=== PATIENT | male | born 1945 | race Caucasian/White ===

== ENCOUNTER 2019-10-14 20:50 | Inpatient (IN) | payer MEDICARE, OTHER ==
[2019-10-14] MEDS ORDERED: ASPIRIN 81 MG PO STA (21:10)
--- NOTE | 2019-10-14 21:12 | ED ---
General Adult HPI - General Chief complaint: Chest Pain Stated complaint: Chest Pain Time Seen by Provider: 10/14/19 21:01 Source: patient Mode of arrival: wheelchair Limitations: no limitations - History of Present Illness Initial comments: Dictation was produced using [employer] dictation software. please excuse any grammatical, word or spelling errors. This patient was cared for during a federal and state declared state of emergency secondary to Covid 19 Chief Complaint: 74-year-old male past medical history of myocardial infarction, acute coronary syndrome presents with chest pain. History of Present Illness: 34-year-old male who presents today with his son. Patient was having dinner. The were eating barbecue and mac & cheese when all of a sudden he began experiencing some substernal chest pressure. He states that the pain was severe. Seconds later patient be began developing shortness of breath. They took some nitroglycerin however his symptoms didn't really improve until several minutes later. Patient lives between here in [place]. 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 Patient is history of coronary artery disease he has 4 coronary artery stents. The ROS documented in this emergency department record has been reviewed and confirmed by me. Those systems with pertinent positive or negative responses have been documented in the HPI. All other systems are other negative and/or noncontributory. PHYSICAL EXAM: General Impression: Alert and oriented x3, not in acute distress HEENT: Normocephalic atraumatic, extra-ocular movements intact, pupils equal and reactive to light bilaterally, mucous membranes moist. Cardiovascular: Heart regular rate and rhythm Chest: Able to complete full sentences, no retractions, no tachypnea Abdomen: abdomen soft, non-tender, non-distended, no organomegaly Musculoskeletal: Pulses present and equal in all extremities, no peripheral edema Motor: no focal deficits noted Neurological: CN II-XII grossly intact, no focal motor or sensory deficits noted Skin: Intact with no visualized rashes Psych: Normal affect and mood ED course: 74-year-old male presents with chest pain. vitals upon arrival shows 90% oxygen room air, rest of vital signs within acceptable limits. Repeat EKG was obtained 20 minutes later showing no dynamic changes. Laboratory evaluation obtained. CBC unremarkable. Coag panel is negative. D- dimer is 0.29. Metabolic panel is negative per cardiac enzymes negative. Chest x-ray is nonacute. Patient given aspirin. Considering patient's medical histo ry he'll be admitted for serial troponins and cardiology consultation. Patient is agreeable to disposition. EKG interpretation: Ventricular rate 70, normal sinus rhythm,. Interval 192, QRS 12, QTC 471. No DE prolongation, no QTC prolongation, no ST or T-wave changes noted. No old EKG for comparison.. Overall, this EKG is unremarkable - Related Data Home Medications Medication Instructions Recorded Confirmed Ascorbic Acid [Vitamin C] 500 mg PO DAILY 08/22/15 08/24/15 Aspirin EC [Ecotrin] 81 mg PO DAILY 08/22/15 08/22/15 Atorvastatin Calcium [Lipitor] 80 mg PO HS 08/22/15 08/24/15 Bioflex 1 tab PO DAILY 08/22/15 08/24/15 Ezetimibe [Zetia] 10 mg PO HS 08/22/15 08/24/15 Lisinopril [Zestril] 10 mg PO HS 08/22/15 08/24/15 Metoprolol Tartrate [Lopressor] 50 mg PO HS 08/22/15 08/24/15 Multivitamins, Thera [Multivitamin] 1 tab PO DAILY 08/22/15 08/22/15 [place]-3 Fatty Acids/Fish Oil [Fish 1 each PO DAILY 08/22/15 08/24/15 Oil 1,000 mg Softgel] Valsartan [Diovan] 160 mg PO QAM 08/22/15 08/24/15 Allergies Allergy/AdvReac Type Severity Reaction Status Date / Time No Known Allergies Allergy Verified 10/14/19 20:53 Review of Systems ROS Statement: Those systems with pertinent positive or pertinent negative responses have been documented in the HPI. ROS Other: All systems not noted in ROS Statement are negative. Past Medical History Past Medical History: Hyperlipidemia, Hypertension, Myocardial Infarction ([place]) Additional Past Medical History / Comment(s): [place] X2, NEW RESULTS OF ELEVATED PSA., TOLD YEARS AGO START OF EMPHYSEMA. Last Myocardial Infarction Date:: UNKNOWN History of Any Multi-Drug Resistant Organisms: None Reported Past Surgical History: Heart Catheterization, Heart Catheterization With Stent Additional Past Surgical History / Comment(s): HEART CATHS X3, Additional Past Anesthesia/Blood Transfusion Reaction / Comment(s): HAS NEVER RECEIVED ANESTHESIA. Date of Last Stent Placement:: 3-4 YRS AGO? Past Psychological History: No Psychological Hx Reported Smoking Status: Never smoker Past Alcohol Use History: Occasional Past Drug Use History: None Reported - Past Family History Father Family Medical History: Cancer Additional Family Medical History / Comment(s): COLON CANCER General Exam Limitations: no limitations Course Vital Signs 10/14/19 10/14/19 20:51 21:28 Temperature 97.9 F Pulse Rate 75 Respiratory 24 18 Rate Blood Pressure 108/74 O2 Sat by Pulse 90 L Oximetry Medical Decision Making - Lab Data Result diagrams: 10/14/19 21:18 10/14/19 21:18 Lab Results 10/14/19 10/14/19 10/14/19 Range/Units 21:18 21:18 21:18 WBC 7.3 (3.8-10.6) k/uL RBC 4.52 (4.30-5.90) m/uL Hgb 15.2 (13.0-17.5) gm/dL Hct 46.6 (39.0-53.0) % MCV 102.9 H (80.0-100.0) fL MCH 33.6 (25.0-35.0) pg MCHC 32.6 (31.0-37.0) g/dL RDW 13.4 (11.5-15.5) % Plt Count 217 (150-450) k/uL Neutrophils % (Manual) 54 % Lymphocytes % (Manual) 39 % Monocytes % (Manual) 3 % Eosinophils % (Manual) 4 % Neutrophils # 0.0 L* (1.3-7.7) k/uL Neutrophils # (Manual) 3.94 (1.3-7.7) k/uL Lymphocytes # (Manual) 2.85 (1.0-4.8) k/uL Monocytes # (Manual) 0.22 (0-1.0) k/uL Eosinophils # (Manual) 0.29 (0-0.7) k/uL Nucleated RBCs 0 (0-0) /100 WBC Manual Slide Review Performed Macrocytosis Slight PT 10.8 (9.0-12.0) sec INR 1.1 (<1.2) APTT 25.8 (22.0-30.0) sec D-Dimer 0.29 (<0.60) mg/L FEU Sodium 138 (137-145) mmol/L Potassium 3.8 (3.5-5.1) mmol/L Chloride 108 H (98-107) mmol/L Carbon Dioxide 19 L (22-30) mmol/L Anion Gap 11 mmol/L BUN 15 (9-20) mg/dL Creatinine 0.67 (0.66-1.25) mg/dL Est GFR (CKD-EPI)AfAm >90 (>60 ml/min/1.73 sqM) Est GFR (CKD-EPI)NonAf >90 (>60 ml/min/1.73 sqM) Glucose 116 H (74-99) mg/dL Calcium 9.0 (8.4-10.2) mg/dL Magnesium 1.9 (1.6-2.3) mg/dL Total Bilirubin 1.1 (0.2-1.3) mg/dL AST 32 (17-59) U/L ALT 25 (4-49) U/L Alkaline Phosphatase 64 (38-126) U/L Troponin I (0.000-0.034) ng/mL Total Protein 7.1 (6.3-8.2) g/dL Albumin 4.1 (3.5-5.0) g/dL Lipase 137 (23-300) U/L // Range/Units 21:18 WBC (3.8-10.6) k/uL RBC (4.30-5.90) m/uL Hgb (13.0-17.5) gm/dL Hct (39.0-53.0) % MCV (80.0-100.0) fL MCH (25.0-35.0) pg MCHC (31.0-37.0) g/dL RDW (11.5-15.5) % Plt Count (150-450) k/uL Neutrophils % (Manual) % Lymphocytes % (Manual) % Monocytes % (Manual) % Eosinophils % (Manual) % Neutrophils # (1.3-7.7) k/uL Neutrophils # (Manual) (1.3-7.7) k/uL Lymphocytes # (Manual) (1.0-4.8) k/uL Monocytes # (Manual) (0-1.0) k/uL Eosinophils # (Manual) (0-0.7) k/uL Nucleated RBCs (0-0) /100 WBC Manual Slide Review Macrocytosis PT (9.0-12.0) sec INR (<1.2) APTT (22.0-30.0) sec D-Dimer (<0.60) mg/L FEU Sodium (137-145) mmol/L Potassium (3.5-5.1) mmol/L Chloride (98-107) mmol/L Carbon Dioxide (22-30) mmol/L Anion Gap mmol/L BUN (9-20) mg/dL Creatinine (0.66-1.25) mg/dL Est GFR (CKD-EPI)AfAm (>60 ml/min/1.73 sqM) Est GFR (CKD-EPI)NonAf (>60 ml/min/1.73 sqM) Glucose (74-99) mg/dL Calcium (8.4-10.2) mg/dL Magnesium (1.6-2.3) mg/dL Total Bilirubin (0.2-1.3) mg/dL AST (17-59) U/L ALT (4-49) U/L Alkaline Phosphatase (38-126) U/L Troponin I <0.012 (0.000-0.034) ng/mL Total Protein (6.3-8.2) g/dL Albumin (3.5-5.0) g/dL Lipase (23-300) U/L Disposition Clinical Impression: Chest pain Disposition: ADMITTED IP TO THIS [facility] Condition: Fair Referrals: Veto Triana DO [Primary Care Provider] - 1-2 days Decision Time: 22:05
[2019-10-14 21:29] LABS: HCT 46.6 % (39.0-53.0); HGB 15.2 gm/dL (13.0-17.5); MCH 33.6 pg (25.0-35.0); MCHC 32.6 g/dL (31.0-37.0); MCV 102.9 fL (80.0-100.0); Macrocytosis Slight; Platelet Count 217 k/uL (150-450); RBC 4.52 m/uL (4.30-5.90); RDW 13.4 % (11.5-15.5); WBC 7.3 k/uL (3.8-10.6)
[2019-10-14 21:39] LABS: ALT 25 U/L (4-49); AST 32 U/L (17-59); African American GFR (CKD) >90 (>60 ml/min/1.73 sqM); Albumin 4.1 g/dL (3.5-5.0); Alkaline Phosphatase 64 U/L (38-126); Anion Gap 11 mmol/L; Blood Urea Nitrogen 15 mg/dL (9-20); Carbon Dioxide 19 mmol/L (22-30); Chloride 108 mmol/L (98-107); Glucose 116 mg/dL (74-99); Magnesium 1.9 mg/dL (1.6-2.3); Non-African American GFR(CKD) >90 (>60 ml/min/1.73 sqM); Potassium 3.8 mmol/L (3.5-5.1); Sodium 138 mmol/L (137-145); Total Bilirubin 1.1 mg/dL (0.2-1.3); Total Protein 7.1 g/dL (6.3-8.2)
[2019-10-14 21:45] LABS: D-Dimer 0.29 mg/L FEU (<0.60); INR 1.1 (<1.2); Partial Thromboplastin Time 25.8 sec (22.0-30.0); Prothrombin Time 10.8 sec (9.0-12.0)
--- NOTE | 2019-10-14 21:50 | XR ---
EXAMINATION TYPE: XR chest 2V DATE OF EXAM: 10/14/2019 COMPARISON: Prior chest 09/14/[address] 08/26/2009 HISTORY: Chest pain and shortness of breath TECHNIQUE: Frontal and lateral views of the chest are obtained. FINDINGS: There is no focal air space opacity, pleural effusion, or pneumothorax seen. Prominence o f the pulmonary artery may be due to pulmonary artery hypertension, lung volumes are increased. There is some linear scarring as on prior exam. The cardiac silhouette size is stable. Aorta is dense. Th e osseous structures are intact, there is thoracic spondylosis. IMPRESSION: No acute cardiopulmonary process. Chronic emphysema, right upper lobe scarring
[2019-10-14 21:53] LABS: Eosinophils # (M) 0.29 k/uL (0-0.7); Lymphocytes # (M) 2.85 k/uL (1.0-4.8); Monocytes # (M) 0.22 k/uL (0-1.0); Neutrophils # (M) 3.94 k/uL (1.3-7.7); Neutrophils % (M) 54 %; Nucleated Red Blood Cells 0 /100 WBC (0-0); Total Cells Counted 100
[2019-10-14] MEDS ORDERED: NITROGLYCERIN SL TABS 0.4 MG TAB SUBLINGUAL PRN (22:01)
[2019-10-15 03:48] LABS: Cholesterol 106 mg/dL (<200); HDL Cholesterol 51 mg/dL (40-60); LDL Cholesterol,Calculated 40 mg/dL (0-99); Triglycerides 75 mg/dL (<150)
[2019-10-15] MEDS ORDERED: REGADENOSON 0.4 MG/5 ML SYRINGE IV ONE (08:44)
[2019-10-15] MEDS ORDERED: AMINOPHYLLINE 500 MG/20 ML VIAL IV PRN (08:44)
[2019-10-15] MEDS ORDERED: CAFFEINE CITRATE 60 MG/3 ML VIAL IV PRN (08:44)
[2019-10-15] MEDS ORDERED: ASPIRIN 325 MG TAB PO SCH (09:00)
[2019-10-15] MEDS ORDERED: ASPIRIN 81 MG PO SCH (09:00)
--- NOTE | 2019-10-15 10:44 | ECHOF ---
Referral Reason: MEASUREMENTS -------- HEIGHT: 180.3 cm WEIGHT: 77.1 kg BP: IVSd: 1.5 cm (0.6 - 1.1) LVIDd: 3.8 cm (3.9 - 5.3) LVPWd: 1.6 cm (0.6 - 1.1) IVSs: 2.0 cm LVIDs: 2.4 cm LVPWs: 2.1 cm LAESV Index (A-L): 30.69 ml/m Ao Diam: 3.5 cm (2.0 - 3.7) AV Cusp: 1.0 cm (1.5 - 2.6) LA Diam: 3.0 cm (2.7 - 3.8) MV EXCURSION: 14.230 mm (> 18.000) MV EF SLOPE: 47 mm/s (70 - 150) EPSS: 0.8 cm MV E Alan: 0.76 m/s MV DecT: 381 ms MV A Alan: 0.94 m/s MV E/A Ratio: 0.81 AV maxP.00 mmHg AV meanP.70 mmHg AR PHT: 504 ms RAP: 5.00 mmHg RVSP: 23.57 mmHg FINDINGS -------- Sinus rhythm. This was a technically good study. The left ventricular size is normal. There is moderate concentric left ventricular hypertrophy. O verall left ventricular systolic function is low-normal with, an EF between 50 - 55 %. Basal inferi or LV wall motion is hypokinetic. The right ventricle is normal in size. LA is midly dilated 29-33ml/m2. The right atrial size is normal. Interatrial and interventricular septum intact. Aortic valve is trileaflet and is moderately thickened. Trace amount of aortic regurgitation. Th ere is moderate aortic stenosis present. Peak/mean gradient across the Aortic Valve is 36.00mmHg / 23.70mmHg. The mitral valve leaflets are moderately thickened. Moderate mitral annular calcification present. Mild mitral regurgitation is present. The peak and mean MV gradients are 6.78mmHg 2.98mmHg as me asured by doppler. Moderate mitral stenosis. The tricuspid valve appears structurally normal. Mild tricuspid regurgitation present. Right vent ricular systolic pressure is normal at < 35 mmHg. There is no pulmonic regurgitation present. The aortic root size is normal. Normal inferior vena cava with normal inspiratory collapse consistent with estimated right atrial pre ssure of 5 mmHg. There is no pericardial effusion. CONCLUSIONS -------- 1. There is moderate concentric left ventricular hypertrophy. 2. Overall left ventricular systolic function is low-normal with, an EF between 50 - 55 %. 3. Basal inferior LV wall motion is hypokinetic. 4. LA is midly dilated 29-33ml/m2. 5. Aortic valve is trileaflet and is moderately thickened. 6. Trace amount of aortic regurgitation. 7. There is moderate aortic stenosis present. 8. Peak/mean gradient across the Aortic Valve is 36.00mmHg / 23.70mmHg. 9. The mitral valve leaflets are moderately thickened. 10. Moderate mitral annular calcification present. 11. Mild mitral regurgitation is present. 12. The peak and mean MV gradients are 6.78mmHg 2.98mmHg as measured by doppler. 13. Moderate mitral stenosis. 14. Mild tricuspid regurgitation present. PLANT TOUR GUIDE: Lu Ulloa RDCS
--- NOTE | 2019-10-15 10:48 | P.CRDCN ---
History of Present Illness History of present illness: HISTORY OF PRESENTING ILLNESS This is a pleasant 74-year-old male past medical history significant for coronary artery disease s/p PCI, myocardial infarction, hypertension, dyslipidemia, lung damage from infection while living in [place] and former nicotine dependence. He follows in the office with Dr. Plummer. We have been asked to see in consultation for chest pain. He states he was feeling a bit more fatigued yesterday than normal but did work all day with his son. When they got home he was making dinner and having a drink. When he sat down to have dinner he felt an intense feeling of overwhelming flushing, chest pressure, nausea and shortness of breath. He states that he was spitting up a lot of sputum but no significant vomiting. The symptoms lasted approximately one hour. On arrival to the emergency department he was still feeling symptomatic. He did take a arevalo blingual nitroglycerin at home and achieved no relief. He underwent a stress test in [place] where he lives in the [place]. The stress test was a myocardial perfusion scan performed February 2019 revealing a fixed defect involving the mid inferior segment with no reversibility noted. He suffered a myocardial infarction in 2010 and underwent successful PCI to the circumflex and RCA artery subsequently thereafter. Since that time he has been stable from a cardiac perspective. Most recent echocardiogram obtained in the office in 2015 revealed preserved LV systolic function with ejection fraction 55% with mild aortic regurgitation noted. DIAGNOSTICS EKG reveals sinus mechanism with changes suggestive of LVH. Chest xray right. Upper lobe scarring with chronic emphysema in no acute cardio pulmonary process Laboratory reviewed, WBC 7.3, hemoglobin 15.2, platelets 217, d-dimer 0.29, sodium 138, potassium 3.8, creatinine 0.67, magnesium 1.9, cardiac enzymes negative 3, LDL 40 and HDL 51. Current cardiac medications include valsartan 160 mg daily, Lopressor 50 mg twice a day, zetia 10 mg at bedtime, atorvastatin 80 mg at bedtime and aspirin 81 mg daily. REVIEW OF SYSTEMS At the time of my exam: CONSTITUTIONAL: Denies fever or chills. CARDIOVASCULAR: Denies chest pain, shortness of breath, orthopnea, PND or palpitations. RESPIRATORY: Denies cough. GASTROINTESTINAL: Denies abdominal pain, diarrhea, constipation, nausea or vomiting. MUSCULOSKELETAL: Denies myalgias. NEUROLOGIC: Denies numbness, tingling or weakness. ENDOCRINE: Denies fatigue, weight change, polydipsia or polyurina. GENITOURINARY: Denies burning, hematuria or urgency with micturation. HEMATOLOGIC: Denies history of anemia or bleeding. PHYSICAL EXAMINATION Blood pressure 180/82 heart rate 76 afebrile and maintaining oxygen saturation on nasal cannula. CONSTITUTIONAL: No apparent distress. HEENT: Head is normocephalic. Pupils are equal, round. Sclerae anicteric. Mucous membranes of the mouth are moist. No JVD. No carotid bruit. CHEST EXAMINATION: Lungs are clear to auscultation. No chest wall tenderness is noted on palpation or with deep breathing. HEART EXAMINATION: Regular rate and rhythm. S1, S2 heard. Soft murmur at the left sternal border, no gallops or rub. ABDOMEN: Soft, nontender. Positive bowel sounds. EXTREMITIES: 2+ peripheral pulses, no lower extremity edema and no calf tenderness. NEUROLOGIC EXAMINATION: Patient is awake, alert and oriented x3. ASSESSMENT Chest pain, an acute coronary event has been ruled out. Coronary artery disease s/p PCI RCA and circumflex artery History of myocardial infarction Hypertension Dyslipidemia PLAN Repeat Lexiscan stress test to assess for reversible cardiac ischemia. If stress test is normal he can be discharged home to follow up with Dr. Bowling in the office. Thank you kindly for this consultation. Nurse Practitioner note has been reviewed, I agree with a documented findings and plan of care. Patient was seen and examined. Past Medical History Past Medical History: Hyperlipidemia, Hypertension, Myocardial Infarction ([place]) Additional Past Medical History / Comment(s): [place] X2, NEW RESULTS OF ELEVATED PSA., TOLD YEARS AGO START OF EMPHYSEMA. Last Myocardial Infarction Date:: UNKNOWN History of Any Multi-Drug Resistant Organisms: None Reported Past Surgical History: Heart Catheterization, Heart Catheterization With Stent Additional Past Surgical History / Comment(s): HEART CATHS X3, Additional Past Anesthesia/Blood Transfusion Reaction / Comment(s): HAS NEVER RECEIVED ANESTHESIA. Date of Last Stent Placement:: 3-4 YRS AGO? Past Psychological History: No Psychological Hx Reported Smoking Status: Former smoker Past Alcohol Use History: Occasional Additional Past Alcohol Use History / Comment(s): SMOKED 25 YEARS OR MORE , 1PPD. QUIT SMOKING 30 YEARS AGO. Past Drug Use History: None Reported - Past Family History Father Family Medical History: Cancer Additional Family Medical History / Comment(s): COLON CANCER Medications and Allergies Home Medications Medication Instructions Recorded Confirmed Type Ascorbic Acid [Vitamin C] 500 mg PO DAILY 08/22/15 10/14/19 History Aspirin EC [Ecotrin] 81 mg PO DAILY 08/22/15 10/14/19 History Atorvastatin Calcium [Lipitor] 80 mg PO HS 08/22/15 10/14/19 History Ezetimibe [Zetia] 10 mg PO HS 08/22/15 10/14/19 History Metoprolol Tartrate [Lopressor] 50 mg PO BID 08/22/15 10/14/19 History Multivitamins, Thera [Multivitamin] 1 tab PO DAILY 08/22/15 10/14/19 History [place]-3 Fatty Acids/Fish Oil [Fish 1 cap PO DAILY 08/22/15 10/14/19 History Oil 1,000 mg Softgel] Finasteride [Proscar] 5 mg PO DAILY 10/14/19 10/14/19 History Fluocinonide 0.05% [Fluocinonide] 1 applic TOPICAL BID 10/14/19 10/14/19 History Sildenafil Citrate 100 mg PO ONCE PRN 10/14/19 10/14/19 History Valsartan [Diovan] 160 mg PO DAILY@1200 10/14/19 10/14/19 History Allergies Allergy/AdvReac Type Severity Reaction Status Date / Time prasugrel [From Effient] Allergy Unknown Verified 10/14/19 23:08 Physical Exam Vitals: Vital Signs Temp Pulse Pulse Resp BP BP Pulse Ox 10/15/19 07:44 97.6 F 76 18 180/82 94 L 10/15/19 03:00 98.0 F 70 16 155/82 95 10/14/19 22:42 97 10/14/19 22:35 97.6 F 69 16 136/76 94 L 10/14/19 22:32 97.5 F L 70 16 129/72 92 L 10/14/19 21:28 18 10/14/19 20:51 97.9 F 75 24 108/74 90 L Intake and Output 10/14/19 10/15/19 10/15/19 22:59 06:59 14:59 Intake Total 450 0 Balance 450 0 Intake: Oral 450 0 Other: Voiding Method Toilet # Voids 1 2 Weight 77.111 kg Results 10/14/19 21:18 10/14/19 21:18 Cardiac Enzymes 10/14/19 10/14/19 10/15/19 Range/Units 21:18 21:18 00:14 AST 32 (17-59) U/L Troponin I <0.012 <0.012 (0.000-0.034) ng/mL 10/15/19 Range/Units 03:11 AST (17-59) U/L Troponin I <0.012 (0.000-0.034) ng/mL Coagulation 10/14/19 Range/Units 21:18 PT 10.8 (9.0-12.0) sec APTT 25.8 (22.0-30.0) sec Lipids 10/15/19 Range/Units 03:11 Triglycerides 75 (<150) mg/dL Cholesterol 106 (<200) mg/dL HDL Cholesterol 51 (40-60) mg/dL CBC 10/14/19 Range/Units 21:18 WBC 7.3 (3.8-10.6) k/uL RBC 4.52 (4.30-5.90) m/uL Hgb 15.2 (13.0-17.5) gm/dL Hct 46.6 (39.0-53.0) % Plt Count 217 (150-450) k/uL Comprehensive Metabolic Panel 10/14/19 Range/Units 21:18 Sodium 138 (137-145) mmol/L Potassium 3.8 (3.5-5.1) mmol/L Chloride 108 H (98-107) mmol/L Carbon Dioxide 19 L (22-30) mmol/L BUN 15 (9-20) mg/dL Creatinine 0.67 (0.66-1.25) mg/dL Glucose 116 H (74-99) mg/dL Calcium 9.0 (8.4-10.2) mg/dL AST 32 (17-59) U/L ALT 25 (4-49) U/L Alkaline Phosphatase 64 (38-126) U/L Total Protein 7.1 (6.3-8.2) g/dL Albumin 4.1 (3.5-5.0) g/dL Current Medications Generic Name Dose Route Start Last Admin Trade Name Freq PRN Reason Stop Dose Admin Aspirin 325 mg 10/15/19 09:00 Aspirin PO DAILY CINDY Nitroglycerin 0.4 mg 10/14/19 22:01 Nitrostat SUBLINGUAL Q5M PRN Chest Pain Intake and Output 10/14/19 10/15/19 10/15/19 22:59 06:59 14:59 Intake Total 450 0 Balance 450 0 Intake: Oral 450 0 Other: Voiding Method Toilet # Voids 1 2 Weight 77.111 kg 10/14/19 21:18 10/14/19 21:18
--- NOTE | 2019-10-15 12:04 | NM ---
EXAMINATION TYPE: NM stress lexiscan cardiolite DATE OF EXAM: 10/15/2019 COMPARISON: NONE HISTORY: Pain TECHNIQUE: After the intravenous administration of 10.36 mCi Tc 99m Sestamibi - Cardiolite resting S PECT images acquired 50 minutes post injection. The patient received 0.4mg Lexiscan, 25.7 mCi Tc 99m Sestamibi - Stress images obtained [address] injection FINDINGS: Review of stress and rest SPECT images demonstrates decreased uptake along the inferior wall extendin g to the inferolateral and inferoseptal left ventricular myocardium on stress and rest images, some d ecreased uptake is noted along the inferior lateral left ventricle on stress as compared to rest imag es. Gated analysis shows normal wall motion with an estimated left ventricular ejection fraction of 50 %. IMPRESSION: Findings suggest prior infarct. There may be negro-infarct pharmacologically induced left ventricular myocardial ischemia along the inferolateral wall.
[2019-10-15] MEDS: METOPROLOL TARTRATE 50 MG TAB PO SCH ×2 (12:33→19:43)
--- NOTE | 2019-10-15 13:16 | P.PN ---
Progress Note - Text Stress test report reviewed and discussed with the patient and his family member who was at the bedside. Recommend proceeding with cardiac catheterization. I have discussed the risks, benefits and alternative therapies for the above- mentioned procedure and for both sedation/analgesia as well as necessary blood product administration, if indicated, as they pertain to this patient. The patient has indicated understanding and acceptance of the risks and procedures discussed. Questions have been answered appropriately and he is agreeable to move forward with the above stated procedure. Case has been boarded for tomorrow morning at 1030. No food after midnight, clear liquids up until 0800 acceptable.
[2019-10-15] MEDS ORDERED: ALPRAZolam 0.5 MG TAB PO PRN (13:17)
[2019-10-15] MEDS ORDERED: SODIUM CHLORIDE 0.9% 1,000 ML in EMPTY BAG 1 BAG IV ONE (13:17)
[2019-10-15] MEDS ORDERED: ALPRAZolam 0.25 MG TAB PO PRN (13:17)
[2019-10-15] MEDS: VALSARTAN 160 MG TAB PO SCH (13:33)
--- NOTE | 2019-10-15 14:27 | EST ---
EXERCISE STRESS AGE: 74 SEX: M HT: 70" WT: 170 lbs. PROTOCOL: STAGE: DURATION OF EXERCISE: HEART RATE REST: 71 BLOOD PRESSURE REST: 158/95 MAXIMUM HEART RATE ACHIEVED: 102 MAXIMUM BLOOD PRESSURE: 190/86 85% MPHR: 100% MPHR: METS: INDICATIONS: Pre surgery. CLINICAL INFORMATION: Baseline EKG revealed a sinus mechanism with inferolateral ST-segment abnormality and LVH by voltage criteria. With Lexiscan administration, heart rate went up from 71 to 97 beats per minute, blood pressure changed from 158/95 to 190/86, and patient did not have any significant symptoms. EKG remained inconclusive. By EKG criteria, this is an inconclusive Lexiscan stress test because of resting EKG changes. The nuclear scan results which are more pertinent will be reported by the radiologist. UYEN / ABN: [id number] /
--- NOTE | 2019-10-15 16:04 | P.HPIM ---
History of Present Illness H&P Date: 10/15/19 Chief Complaint: Severe heartburn History of presenting complaint: This is a pleasant 74-year-old patient of Dr. Triana. He is to follow with paper gluing operator Dr. SIMPSON particle is now retired. Patient due to follow-up with a new paper gluing operator Dr. Marrero in [facility]. Patient has known coronary artery disease prior stents. I want 3-4 years ago. Hypertension, hyperlipidemia and early emphysema. Yesterday has not been feeling well. Oscar in a yesterday. Steger the worst Carboni Novak. Nitroglycerin with some relief. Symptoms again worsen. Patient broke on a significant sweat dizzy lightheaded felt tired rundown. Brought into the ER. Admitted for unstable angina. Initial troponin was negative. Currently chest pain-free. Review of systems: GEN.: Tired EYES: None HEENT: None NECK: None RESPIRATORY: As above CARDIOVASCULAR: As above GASTROINTESTINAL: None GENITOURINARY: None MUSCULOSKELETAL: Joint pains LYMPHATICS: None HEMATOLOGICAL: None PSYCHIATRY: None NEUROLOGICAL: None Past medical history to include: Hypertension, hyperlipidemia, coronary artery stent, elevated PSA, emphysema Social history: Lives with his son. Resident is this for fund-raising called by me at [employer]. Patient smoked about a pack a day for about [address] opped about 30 years ago. Alcohol occasional. Physical examination: VITAL SIGNS: 97.9, 75, 24, 108/74, 90% room air upon presentation GENERAL: BMI 24.4, propped red, awake. EYES: Pupils equal. Conjunctiva normal. HEENT: External appearance of nose and ears normal, oral cavity grossly normal. NECK: JVD not raised; masses not palpable. HEART: First and second heart sounds are normal; no edema. LUNGS: Respiratory rate normal; decreased breath sounds. ABDOMEN: Soft, nontender, liver spleen not palpable, no masses palpable. PSYCH: Alert and oriented x3; mood and affect normal. NEUROLOGICAL: Cranial nerves grossly intact; no facial asymmetry, power and sensation grossly intact. MUSCULAR schedule: Evidence of OA especially in the hands LYMPHATICS: No lymph nodes palpable in the axilla and neck INVESTIGATIONS, reviewed in the clinical context: White count 7.3 hemoglobin 15.2 platelets 217 potassium 3.8 creatinine 0.67 Troponin I 3 negative LDL 40 EKG tracing personally reviewed by me-sinus rhythm with ST segment depression in leads 2, 3, aVF and V5 and V6 Chest x-ray film personally reviewed by me-possibly chronic changes, hyperinflation Assessment: -Unstable angina in a patient with known coronary artery disease and other classical presentation with EKG changes in the inferolateral leads and negative troponin -Coronary artery disease prior history of stent -Essential hypertension -Hyperlipidemia -Primary osteoarthritis -Emphysema in the next smoker Plan: Patient undergo a nuclear stress test showing some reversibility. Patient is currently on aspirin and Lopressor Lipitor Dilantin. Seen by currently. Plan is for cardiac catheterization tomorrow. Care was discussed with the patient. Questions answered Past Medical History Past Medical History: Hyperlipidemia, Hypertension, Myocardial Infarction (NV) Additional Past Medical History / Comment(s): NV X2, NEW RESULTS OF ELEVATED PSA., TOLD YEARS AGO START OF EMPHYSEMA. Last Myocardial Infarction Date:: UNKNOWN History of Any Multi-Drug Resistant Organisms: None Reported Past Surgical History: Heart Catheterization, Heart Catheterization With Stent Additional Past Surgical History / Comment(s): HEART CATHS X3, Additional Past Anesthesia/Blood Transfusion Reaction / Comment(s): HAS NEVER RECEIVED ANESTHESIA. Date of Last Stent Placement:: 3-4 YRS AGO? Past Psychological History: No Psychological Hx Reported Smoking Status: Former smoker Past Alcohol Use History: Occasional Additional Past Alcohol Use History / Comment(s): SMOKED 25 YEARS OR MORE , 1PPD. QUIT SMOKING 30 YEARS AGO. Past Drug Use History: None Reported - Past Family History Father Family Medical History: Cancer Additional Family Medical History / Comment(s): COLON CANCER Medications and Allergies Home Medications Medication Instructions Recorded Confirmed Type Ascorbic Acid [Vitamin C] 500 mg PO DAILY 08/22/15 10/14/19 History Aspirin EC [Ecotrin] 81 mg PO DAILY 08/22/15 10/14/19 History Atorvastatin Calcium [Lipitor] 80 mg PO HS 08/22/15 10/14/19 History Ezetimibe [Zetia] 10 mg PO HS 08/22/15 10/14/19 History Metoprolol Tartrate [Lopressor] 50 mg PO BID 08/22/15 10/14/19 History Multivitamins, Thera [Multivitamin] 1 tab PO DAILY 08/22/15 10/14/19 History [place]-3 Fatty Acids/Fish Oil [Fish 1 cap PO DAILY 08/22/15 10/14/19 History Oil 1,000 mg Softgel] Finasteride [Proscar] 5 mg PO DAILY 10/14/19 10/14/19 History Fluocinonide 0.05% [Fluocinonide] 1 applic TOPICAL BID 10/14/19 10/14/19 History Sildenafil Citrate 100 mg PO ONCE PRN 10/14/19 10/14/19 History Valsartan [Diovan] 160 mg PO DAILY@1200 10/14/19 10/14/19 History Allergies Allergy/AdvReac Type Severity Reaction Status Date / Time prasugrel [From Effient] Allergy Unknown Verified 10/14/19 23:08 Physical Exam Vitals: Vital Signs Temp Pulse Pulse Resp BP BP Pulse Ox 10/15/19 12:27 96 10/15/19 09:11 18 87 L 10/15/19 07:59 76 18 10/15/19 07:44 97.6 F 76 18 180/82 94 L 10/15/19 03:00 98.0 F 70 16 155/82 95 10/14/19 22:42 97 10/14/19 22:35 97.6 F 69 16 136/76 94 L 10/14/19 22:32 97.5 F L 70 16 129/72 92 L 10/14/19 21:28 18 10/14/19 20:51 97.9 F 75 24 108/74 90 L Intake and Output 10/14/19 10/15/19 10/15/19 22:59 06:59 14:59 Intake Total 450 0 Balance 450 0 Intake: Oral 450 0 Other: Voiding Method Toilet Toilet # Voids 1 2 Weight 77.111 kg 77.11 kg Results CBC & Chem 7: 10/14/19 21:18 10/14/19 21:18 Labs: Abnormal Lab Results - Last 24 Hours (Table) 10/14/19 10/14/19 Range/Units 21:18 21:18 MCV 102.9 H (80.0-100.0) fL Chloride 108 H (98-107) mmol/L Carbon Dioxide 19 L (22-30) mmol/L Glucose 116 H (74-99) mg/dL
[2019-10-15] MEDS: EZETIMIBE 10 MG TAB PO SCH (19:43)
[2019-10-15] MEDS: ATORVASTATIN 80 MG TAB PO SCH (19:43)
[2019-10-16] MEDS: METOPROLOL TARTRATE 50 MG TAB PO SCH ×2 (08:11→20:16)
[2019-10-16] MEDS: VALSARTAN 160 MG TAB PO SCH (08:11)
[2019-10-16 08:36] LABS: Glucose,Whole Blood 141 mg/dL (75-99)
[2019-10-16] MEDS ORDERED: ASPIRIN 81 MG PO ONE (09:00)
[2019-10-16] MEDS ORDERED: MIDAZOLAM 2 MG/2 ML VIAL IV ONE (11:07)
[2019-10-16] MEDS ORDERED: LIDOCAINE 1% INJ 10MG/ML (20 ML MDV) SQ ONE ×2 (11:07→11:19)
[2019-10-16] MEDS ORDERED: VERAPAMIL SYRINGE (5 MG/10 ML) INTRAARTER ONE (11:12)
[2019-10-16] MEDS ORDERED: IV FLUID CONTINUATION 600 ML IV ONE (11:13)
[2019-10-16] MEDS ORDERED: NITROGLYCERIN SL TABS 0.4 MG TAB SUBLINGUAL ONE (11:32)
[2019-10-16] MEDS ORDERED: IOPAMIDOL-370 100ML BTL INJ ONE ×2 (11:39→12:21)
[2019-10-16] MEDS ORDERED: NITROGLYCERIN 1000MCG/10ML SYRINGE INTRACORON ONE (11:40)
[2019-10-16] MEDS ORDERED: BIVALIRUDIN BOLUS 250 MG/50 ML IV ONE (11:49)
[2019-10-16] MEDS ORDERED: BIVALIRUDIN 250 MG in SODIUM CHLORIDE 0.9% 39 ML IV ONE (11:50)
[2019-10-16] MEDS ORDERED: CLOPIDOGREL 75 MG TAB PO ONE (12:37)
--- NOTE | 2019-10-16 15:48 | CC ---
CARDIAC CATHETERIZATION REPORT DATE OF SERVICE: 10/16/2019. PROCEDURE: 1. Left heart catheterization and coronary angiography. 2. PTCA and stenting of a complex calcified mid RCA lesion with a drug-eluting stent. PERFORMED BY: Dr. Savannah Bowling. Moderate conscious sedation time was 81 minutes. The patient was administered Versed. Oxygen saturation, hemodynamics and EKG were monitored closely. CLINICAL INFORMATION: Mr. Henrique Johnson is a 74-year-old gentleman with a history of CAD, previous inferior CA and stenting of RCA in 2006 and subsequently in 2010, I performed a repeat stenting in the midportion of the RCA with a drug-eluting stent. Subsequently in 2011, I performed a circumflex stenting. Technically this was a difficult procedure. The patient has done well recently but came into the hospital with chest pain and because of symptoms suggestive angina, I performed a Lexiscan stress test which revealed a fixed defect in the inferior wall with moderate partial reversibility, and he was therefore advised cardiac catheterization after due discussion regarding risks, benefits, and options. PROCEDURE NOTE: Under local anesthesia and strict aseptic precautions, a 6-Montserratian introducer was placed in the right radial artery. I advanced the wire under fluoroscopic guidance, but I could not get into the subclavian artery because of what seems to be a stenosis. There was a pressure difference of nearly 30 mmHg. I therefore switched over to the right femoral approach. After the end of the procedure, a TR band was applied to the right radial sheath uneventfully. Under strict aseptic precautions and local anesthesia, a 6-Montserratian introducer was placed in the right femoral artery. Using a JL3.5 and JR4 catheters, I performed coronary angiography and the same right catheter was used to check LV pressures and following this I went on to perform an intervention procedure of the mid RCA which was a technically difficult and challenging procedure. An Angio-Seal device was used after the groin hemostasis and patient was sent to the room in a stable condition. Results were discussed with the patient and son. CARDIAC CATHETERIZATION FINDINGS: The left ventricular end-diastolic pressure was 12 mmHg with a 22 mm gradient across the aortic valve suggestive of mild aortic stenosis. CORONARY ANGIOGRAPHY FINDINGS: RIGHT CORONARY ARTERY: Technically large dominant vessel with an ostial lesion of nearly 40%-50% and in the midportion there is 80% lesion with haziness and thrombus and calcification, which I believe is the culprit lesion. Beyond it the vessel bifurcates into a larger PLV, smaller PDA which is occluded and fills from an acute marginal branch. The RCA therefore has an ostial 40%-50% lesion and the proximal stented segment is patent, mid area, probably within the previous stent there is an eccentric 80% stenosis with haziness, suggestive of thrombus and moderate calcification. LEFT MAIN CORONARY ARTERY: This is a short patent vessel, free of significant disease that bifurcates into LAD and circumflex. LEFT ANTERIOR DESCENDING CORONARY ARTERY: Good caliber vessel, extends along the anterior wall. It gives off what seems to be a good-sized diagonal branch that has a 30% to 40% lesion. After the origin of the diagonal branch. There is about a 35% to 40% narrowing in the LAD. The diagonal also has another 40% lesion, bifurcates into 2 branches. LAD continues along the anterior wall and caliber improves, runs all the way to the apex supplying a sizable amount of myocardium. LAD therefore is a 40% to 50% mid lesion. Diagonal has another 40%-50% lesion. The entire LAD system is heavily calcified. LEFT POSTERIOR CIRCUMFLEX CORONARY ARTERY: I performed multiple views of this circumflex. Proximally right at the ostium There appears to be a lesion involving the circumflex artery as it comes off from the left main. There is also moderate calcification in this region. Beyond this, there is a stented area which is widely patent. It gives off an obtuse marginal branch and also runs in the AV groove and supplies a sizable amount of myocardium. All the nondominant vessel is of fairly decent caliber and distribution, but very proximally, there appears to be a 60% to 70% proximal lesion as it comes off from the left main. In multiple views, I looked at the view and it does not appear to be critical, but requires to be re-evaluated with an FFR down the road or a stress test. Circumflex marginal is free of significant disease and proximal circumflex that was stented is free of significant disease. Left ventriculogram was not performed. FINAL IMPRESSION: This patient has a right dominant system, significant lesion in the mid RCA of 80% with haziness and thrombus, ostial RCA has a 40% to 50% lesion. RCA is a dominant vessel. PDA is occluded, filled by a collateral from the acute marginal branch of RCA. Left main is free of significant disease with calcifications. Circumflex ostium has a 60% lesion. Previously stented mid/proximal circumflex is patent. LAD has a 40% to 50% mid lesion and diagonal has a 40% to 50% mid lesion. Filling pressures are normal and there is mild aortic stenosis with a gradient of 22 mmHg across the aortic valve. RECOMMENDATION: I recommended PCI of RCA and proceeded to perform this in the same setting. PCI PROCEDURE DETAILS: A standard right Eryn guide catheter was used to cannulate the right coronary artery and a run-through wire was used to cross the lesion. I had difficulty advancing a 3.0 NC Trek balloon. I tried to do a kala wire. With another whisper wire, I still had difficulty. I then took out the run-through wire and used a GuideLiner. With the help of a GuideLiner, I was able to advance a 3.0, 12 mm long NC Trek balloon and dilated the mid segment. Then the same balloon was used to dilate the proximal segment just after the ostium as well where I was having a lot of resistance. After this, I was able to advance a 3.0 caliber 15 mm Xience stent and deployed this in the midportion at 14 atmospheres. This was then post dilated with a 3.5 caliber, 12 mm NC Trek balloon. The stent was well expanded. The same balloon was used to dilate the proximal RCA as well as the ostial RCA. Excellent angiographic result without complication was achieved. The GuideLiner and balloon were taken out. Results were discussed with the patient and family. He received 600 mg of Plavix and Angiomax bolus and infusion was given as per protocol. He will be discharged tomorrow if he remains stable and I will see him in the office next week. MMODL / IJN: [id number] /
[2019-10-16] MEDS: SODIUM CHLORIDE 0.9% 1,000 ML IV SCH (18:39)
[2019-10-16] MEDS: ATORVASTATIN 80 MG TAB PO SCH (20:16)
--- NOTE | 2019-10-16 22:47 | P.PN ---
Progress Note - Text Progress Note Date: 10/16/19 Chief Complaint: Severe heartburn History of presenting complaint: This is a pleasant 74-year-old patient of Dr. Triana. He is to follow with manager field sales Dr. SIMPSON particle is now retired. Patient due to follow-up with a new manager field sales Dr. Marrero in [facility]. Patient has known coronary artery disease prior stents. - 3-4 years ago. Hypertension, hyperlipidemia and early emphysema. Yesterday has not been feeling well. . Admitted with unstable angina. Troponins were negative. Nuclear stress test positive. Today-underwent cardiac catheterization. Had nonobstructive disease in several vessels. RCA stented. Postprocedure laying in bed comfortable Review of systems: Was done for constitutional, cardiovascular, GI, pulmonary. relevant finding as above Active Medications Alprazolam (Xanax) 0.25 mg PO Q6HR PRN PRN Reason: Mild Anxiety Alprazolam (Xanax) 0.5 mg PO Q6HR PRN PRN Reason: Moderate Anxiety Aminophylline (Aminophylline) 100 mg IV ONCE PRN PRN Reason: Patient Response Aspirin (Aspirin) 81 mg PO DAILY [facility] Atorvastatin Calcium (Lipitor) 80 mg PO [facility] Last Admin: 10/16/19 20:16 Dose: 80 mg Documented by: Clopidogrel Bisulfate (Plavix) 75 mg PO DAILY [facility] Ezetimibe (Zetia) 10 mg PO [facility] Last Admin: 10/15/19 19:43 Dose: 10 mg Documented by: Sodium Chloride (Saline 0.9%) 1,000 mls @ 75 mls/hr IV .[id number] [facility] Stop: 10/17/19 08:16 Last Admin: 10/16/19 18:39 Dose: 75 mls/hr Documented by: Metoprolol Tartrate (Lopressor) 50 mg PO BID [facility] Last Admin: 10/16/19 20:16 Dose: 50 mg Documented by: Nitroglycerin (Nitrostat) 0.4 mg SUBLINGUAL Q5M PRN PRN Reason: Chest Pain Valsartan (Diovan) 160 mg PO DAILY@1200 [facility] Last Admin: 10/16/19 08:11 Dose: 160 mg Documented by: Physical examination: VITAL SIGNS: 97.5, 83, 16, 132/72, 96% on 2 L GENERAL: Laying in bed, comfortable EYES: Pupils equal. Conjunctiva normal. HEENT: External appearance of nose and ears normal, oral cavity grossly normal. NECK: JVD not raised; masses not palpable. HEART: First and second heart sounds are normal; no edema. LUNGS: Respiratory rate normal; decreased breath sounds. ABDOMEN: Soft, nontender, liver spleen not palpable, no masses palpable. PSYCH: Alert and oriented x3; mood and affect normal. INVESTIGATIONS, reviewed in the clinical context: White count 7.3 hemoglobin 15.2 platelets 217 potassium 3.8 creatinine 0.67 Troponin I 3 negative LDL 40 EKG tracing personally reviewed by me-sinus rhythm with ST segment depression in leads 2, 3, aVF and V5 and V6 Chest x-ray film personally reviewed by me-possibly chronic changes, hyperinflation Assessment: -Unstable angina in a patient with known coronary artery disease and other classical presentation with EKG changes in the inferolateral leads and negative troponin -Cardiac catheterization with a stent to RCA -Coronary artery disease prior history of stent -Essential hypertension -Hyperlipidemia -Primary osteoarthritis -Emphysema in the next smoker Plan: Patient currently in aspirin, Plavix, Zetia, Lopressor IV fluids. Follow up with cardiology. Discussed with the patient.
[2019-10-17] MEDS: EZETIMIBE 10 MG TAB PO SCH (00:02)
[2019-10-17 03:33] VITALS: RESP 18
[2019-10-17] MEDS: SODIUM CHLORIDE 0.9% 1,000 ML IV SCH (03:37)
[2019-10-17 05:55] LABS: HCT 44.9 % (39.0-53.0); HGB 15.1 gm/dL (13.0-17.5); MCH 34.1 pg (25.0-35.0); MCHC 33.6 g/dL (31.0-37.0); MCV 101.6 fL (80.0-100.0); Macrocytosis Slight; Platelet Count 211 k/uL (150-450); RBC 4.42 m/uL (4.30-5.90); RDW 13.4 % (11.5-15.5)
[2019-10-17 06:12] LABS: African American GFR (CKD) >90 (>60 ml/min/1.73 sqM); Anion Gap 4 mmol/L; Blood Urea Nitrogen 11 mg/dL (9-20); Calcium 8.2 mg/dL (8.4-10.2); Carbon Dioxide 24 mmol/L (22-30); Chloride 110 mmol/L (98-107); Glucose 81 mg/dL (74-99); Non-African American GFR(CKD) >90 (>60 ml/min/1.73 sqM); Sodium 138 mmol/L (137-145)
[2019-10-17 06:36] LABS: Eosinophils # (M) 0.16 k/uL (0-0.7); Lymphocytes # (M) 1.84 k/uL (1.0-4.8); Monocytes # (M) 0.08 k/uL (0-1.0); Neutrophils # (M) 5.92 k/uL (1.3-7.7); Neutrophils % (M) 74 %; Nucleated Red Blood Cells 0 /100 WBC (0-0); Total Cells Counted 100
[2019-10-17 06:37] LABS: Poikilocytosis (M) Present
[2019-10-17] MEDS: METOPROLOL TARTRATE 50 MG TAB PO SCH (08:47)
[2019-10-17] MEDS ORDERED: CLOPIDOGREL 75 MG TAB PO SCH (09:00)
[2019-10-17] MEDS ORDERED: ASPIRIN 81 MG PO SCH (09:00)
[2019-10-17 10:50] VITALS: TEMP 97.6
--- NOTE | 2019-10-17 10:50 | P.PN ---
Subjective Progress Note Date: 10/17/19 This pleasant 74-year-old gentleman with a history of CAD, previous inferior AR and stenting of RCA in 2006 and subsequently in 2010 as well as prior stenting of the circumflex. He presented to the hospital complaints of chest discomfort and subsequently underwent Lexiscan stress test which revealed a fixed defect in the inferior wall with moderate partial reversibility and was advised to undergo cardiac catheterization. He underwent cardiac catheterization by Dr. DANTE Bowling yesterday. This revealed ostial lesion of the RCA with 40-50% in the mid RCA lesion of 80% with haziness and thrombus as well as calcification, circumflex ostium has a 60% lesion, patent stent in the circumflex, mid LAD lesion of 40- 50% and a diagonal lesion of 40-50%, also showed evidence of mild aortic stenosis. He subsequently underwent stenting of the mid RCA. Patient is feeling well this morning. He is currently on aspirin 81 mg by mouth daily, atorvastatin 80 mg by mouth daily at bedtime, Plavix 75 mg by mouth daily, 7010 mg daily at bedtime, metoprolol tartrate 50 mg by mouth twice a day and valsartan 160 mg by mouth daily. Objective - Vital Signs Vital signs: Vital Signs Temp 97.4 F L 10/16/19 20:00 Pulse 64 10/17/19 03:32 Resp 18 10/17/19 03:32 BP 176/81 10/17/19 03:32 Pulse Ox 96 10/17/19 03:32 Intake & Output 10/16/19 10/17/19 10/17/19 18:59 06:59 18:59 Intake Total 1055 240 Output Total 1600 Balance -545 240 Weight 76.6 kg Intake: IV 335 Oral 720 240 Output: Urine 1600 Other: Voiding Method Toilet - Exam PHYSICAL EXAMINATION: HEENT: Head is atraumatic, normocephalic. Pupils equal, round. Neck is supple. There is no elevated jugular venous pressure. HEART EXAMINATION: Heart sounds regular, S1 and S2 with a systolic murmur. CHEST EXAMINATION: Lungs are clear to auscultation. No chest wall tenderness is noted on palpation or with deep breathing. ABDOMEN: Soft, nontender. Bowel sounds are heard. No organomegaly noted. EXTREMITIES: 2+ peripheral pulses with no evidence of peripheral edema and no calf tenderness noted. Right radial puncture site soft with no ecchymosis or hematoma. Right femoral puncture site soft with minimal ecchymosis, no hematoma. NEUROLOGIC patient is awake, alert and oriented x3. . - Labs CBC & Chem 7: 10/17/19 05:39 10/17/19 05:39 Labs: Abnormal Lab Results - Last 24 Hours (Table) 10/17/19 10/17/19 Range/Units 05:39 05:39 MCV 101.6 H (80.0-100.0) fL Chloride 110 H (98-107) mmol/L Creatinine 0.54 L (0.66-1.25) mg/dL Calcium 8.2 L (8.4-10.2) mg/dL Assessment and Plan Assessment: #1 CAD, status post stenting of the RCA #2 history of an AR #3 hypertension #4 hyperlipidemia Plan: From cardiology's perspective, increase patient's activity. If he's feeling well patient may be discharged home later today. He will follow-up in the office as advised by Dr. DANTE Bowling 10/20/19 at 9:15 AM. The above dictated assessment and findings were discussed with signing physician. The impression and plan of care have been directed as dictated. Alyson Herr, Nurse Practitioner, acting as scribe for signing physician.
[2019-10-17 12:08] VITALS: BP 154/74
[2019-10-17 12:09] VITALS: PULSE 62
[2019-10-17] MEDS: VALSARTAN 160 MG TAB PO SCH (12:34)
--- NOTE | 2019-10-17 19:00 | P.DS ---
Providers Date of admission: 10/15/19 14:52 Expected date of discharge: 10/17/19 Attending physician: Florentino Kingsley Consults: 10/14/19 22:01 Consult Physician Urgent Consulting Provider: Malcom Aguilar Consult Reason/Comments: chest pain Do you want consulting provider notified?: Yes Primary care physician: [facility] Course: Chief Complaint: Severe heartburn History of presenting complaint: This is a pleasant 74-year-old patient of Dr. Triana. He is to follow with repossessor Dr. VC goldman is now retired. Patient due to follow-up with a new repossessor Dr. Marrero in [facility]. Patient has known coronary artery disease prior stents. - 3-4 years ago. Hypertension, hyperlipidemia and early emphysema. Yesterday has not been feeling well. . Admitted with unstable angina. Troponins were negative. Nuclear stress test positive. cardiac catheterization.-nonobstructive disease in several vessels. RCA had 80% midportion lesion that was stented. Today-sitting up. Comfortable. No cardiac symptoms. Ambulating. Discussed with the patient. Cleared by cardiology for discharge. Consultation: Dr. DANTE newton from cardiology Physical examination: VITAL SIGNS: 97.6, 76, 16, 127/77, 92% on room air GENERAL: Sitting up, comfortable EYES: Pupils equal. Conjunctiva normal. HEENT: External appearance of nose and ears normal, oral cavity grossly normal. NECK: JVD not raised; masses not palpable. HEART: First and second heart sounds are normal; no edema. LUNGS: Respiratory rate normal; decreased breath sounds. ABDOMEN: Soft, nontender, liver spleen not palpable, no masses palpable. PSYCH: Alert and oriented x3; mood and affect normal. INVESTIGATIONS, reviewed in the clinical context: White count 8 hemoglobin 15.1 potassium 4 creatinine 0.54 Previous testing White count 7.3 hemoglobin 15.2 platelets 217 potassium 3.8 creatinine 0.67 Troponin I 3 negative LDL 40 EKG tracing personally reviewed by me-sinus rhythm with ST segment depression in leads 2, 3, aVF and V5 and V6 Chest x-ray film personally reviewed by me-possibly chronic changes, hyperinflation Assessment: -Unstable angina in a patient with known coronary artery disease and other classical presentation with EKG changes in the inferolateral leads and negative troponin -Cardiac catheterization with a stent to RCA for midportion 80% stenosis -Coronary artery disease prior history of stent -Essential hypertension -Hyperlipidemia -Primary osteoarthritis -Emphysema in the next smoker Disposition: Home Patient Condition at Discharge: Stable Plan - Discharge Summary Discharge Rx Participant: Yes New Discharge Prescriptions: New Clopidogrel [Plavix] 75 mg PO DAILY #90 tab Nitroglycerin Sl Tabs [Nitrostat] 0.4 mg SUBLINGUAL Q5M PRN #25 tab PRN Reason: Chest Pain Continue Multivitamins, Thera [Multivitamin (formulary)] 1 tab PO DAILY Ascorbic Acid [Vitamin C] 500 mg PO DAILY Metoprolol Tartrate [Lopressor] 50 mg PO BID Ezetimibe [Zetia] 10 mg PO HS Atorvastatin Calcium [Lipitor] 80 mg PO HS Aspirin EC [Ecotrin Low Dose] 81 mg PO DAILY [place]-3 Fatty Acids/Fish Oil [Fish Oil 1,000 mg Softgel] 1 cap PO DAILY Valsartan [Diovan] 160 mg PO DAILY@1200 Sildenafil Citrate 100 mg PO ONCE PRN PRN Reason: E.D. Fluocinonide 0.05% [Lidex 0.05% cream] 1 applic TOPICAL BID Finasteride [Proscar] 5 mg PO DAILY Discharge Medication List Ascorbic Acid [Vitamin C] 500 mg PO DAILY 08/22/15 [History] Aspirin EC [Ecotrin Low Dose] 81 mg PO DAILY 08/22/15 [History] Atorvastatin Calcium [Lipitor] 80 mg PO HS 08/22/15 [History] Ezetimibe [Zetia] 10 mg PO HS 08/22/15 [History] Metoprolol Tartrate [Lopressor] 50 mg PO BID 08/22/15 [History] Multivitamins, Thera [Multivitamin (formulary)] 1 tab PO DAILY 08/22/15 [History] [place]-3 Fatty Acids/Fish Oil [Fish Oil 1,000 mg Softgel] 1 cap PO DAILY 08/22/15 [History] Finasteride [Proscar] 5 mg PO DAILY 10/14/19 [History] Fluocinonide 0.05% [Lidex 0.05% cream] 1 applic TOPICAL BID 10/14/19 [History] Sildenafil Citrate 100 mg PO ONCE PRN 10/14/19 [History] Valsartan [Diovan] 160 mg PO DAILY@1200 10/14/19 [History] Clopidogrel [Plavix] 75 mg PO DAILY #90 tab 10/16/19 [Rx] Nitroglycerin Sl Tabs [Nitrostat] 0.4 mg SUBLINGUAL Q5M PRN #25 tab 10/17/19 [Rx] Follow up Appointment(s)/Referral(s): Anneliese Bowling MD [STAFF PHYSICIAN] - 10/20/19 9:15 am Veto Triana DO [Primary Care Provider] - 1-2 days Patient Instructions/Handouts: *Surgery [facility] - After Heart Catheterization - [facility] Instructions Discharge Disposition: HOME SELF-CARE
== END 2019-10-17 13:48 | disposition home or self-care (01) | DRG 247 ==
LOC: EC 20:50 → 3NCARDOBS 22:02 → OBSVTOIN 10-15 14:52 → 3SCARD 10-16 10:42
PROVIDERS: ADMIT Hospitalist; ATTEND Hospitalist
PROC: 027034Z Dilation of Coronary Artery, One Artery with Drug-eluting Intraluminal Device, Percutaneous Approach (ICD-10-PCS; principal; 2019-10-16 10:30)
PROC: B2111ZZ Fluoroscopy of Multiple Coronary Arteries using Low Osmolar Contrast (ICD-10-PCS; principal; 2019-10-16 10:30)
PROC: 4A023N7 Measurement of Cardiac Sampling and Pressure, Left Heart, Percutaneous Approach (ICD-10-PCS; principal; 2019-10-16 10:30)
DX: I25.110 Atherosclerotic heart disease of native coronary artery with unstable angina pectoris (principal); I10 Essential (primary) hypertension; F17.200 Nicotine dependence, unspecified, uncomplicated; E78.5 Hyperlipidemia, unspecified; J43.9 Emphysema, unspecified; M19.91 Primary osteoarthritis, unspecified site; I35.0 Nonrheumatic aortic (valve) stenosis; Z11.59 Encounter for screening for other viral diseases; I25.2 Old myocardial infarction; Z79.899 Other long term (current) drug therapy; Z79.82 Long term (current) use of aspirin; Z95.5 Presence of coronary angioplasty implant and graft; Z98.890 Other specified postprocedural states; Z80.0 Family history of malignant neoplasm of digestive organs; Z88.8 Allergy status to other drugs, medicaments and biological substances
CPT/HCPCS: 36415; 71046; 78452; 80048; 80053; 80061; 83690; 83735; 84484; 85025; 85379; 85610; 85730; 93005; 93017; 93306; 93458; 99285

== ENCOUNTER → 2020-09-26 | Outpatient (CLI) | payer MEDICARE, OTHER ==
[2020-09-26 10:51] LABS: HCT 51.9 % (39.0-53.0); HGB 18.1 gm/dL (13.0-17.5); MCH 35.5 pg (25.0-35.0); MCHC 34.7 g/dL (31.0-37.0); MCV 102.2 fL (80.0-100.0); Macrocytosis Slight; Mean Platelet Volume 7.5; Platelet Count 211 k/uL (150-450); RBC 5.08 m/uL (4.30-5.90); RDW 12.9 % (11.5-15.5); WBC 5.3 k/uL (3.8-10.6)
[2020-09-26 11:17] LABS: African American GFR (CKD) >90 (>60 ml/min/1.73 sqM); Anion Gap 8 mmol/L; Blood Urea Nitrogen 14 mg/dL (9-20); Carbon Dioxide 31 mmol/L (22-30); Chloride 102 mmol/L (98-107); Non-African American GFR(CKD) >90 (>60 ml/min/1.73 sqM); Potassium 4.3 mmol/L (3.5-5.1); Sodium 141 mmol/L (137-145)
== END | disposition home or self-care (01) ==
LOC: LABPAT 09:37
PROVIDERS: ATTEND Internal Medicine Interventional Cardiology
DX: Z01.812 Encounter for preprocedural laboratory examination (principal); I20.9 Angina pectoris, unspecified
CPT/HCPCS: 36415; 80051; 82565; 84520; 85027

== ENCOUNTER 2020-10-07 05:53 | Day surgery (SDC) | payer MEDICARE, OTHER ==
[2020-10-06 11:51] VITALS: BMI 23.7
[2020-10-07] MEDS ORDERED: SODIUM CHLORIDE 0.9% 500 ML 500 ML IV ONE (06:45)
[2020-10-07 06:49] VITALS: RESP 16; TEMP 97.7
[2020-10-07] MEDS ORDERED: fentaNYL (PF) 50 MCG/ML 2 ML AMP ONE (06:49)
[2020-10-07] MEDS: BENZOCAINE SPRAY 1 CAN TOPICAL ONE ×2 (07:03→07:33)
[2020-10-07] MEDS ORDERED: MIDAZOLAM 2 MG/2 ML VIAL IV ONE ×2 (07:33→07:34)
[2020-10-07] MEDS ORDERED: fentaNYL (PF) 50 MCG/ML 2 ML AMP IV ONE (07:33)
--- NOTE | 2020-10-07 09:01 | ECHOT ---
TRANSESOPHAGEAL ECHOCARDIOGRAM DATE OF SERVICE: October 07, 2020. PERFORMING PHYSICIAN: Tacho Prasad MD. PROCEDURE PERFORMED: Transesophageal echocardiogram. INDICATION: Aortic stenosis. COMPLICATION: None. LEVEL OF SEDATION: Moderate with sedation length of 15 minutes. PROCEDURE DESCRIPTION: After obtaining an informed consent, the patient was brought to the transesophageal echocardiogram suite. A pulse oximetry and heart rate monitors were attached to the patient. Subsequently, the transesophageal echocardiogram probe was advanced through the bite guard to the mid esophageal where 2D echocardiogram images as well as color Doppler images of various cardiac structures were obtained. I did perform the procedure using 2D echo, as well as color Doppler and pulse Doppler, and continuous- wave Doppler. The procedure was completed without any complication. FINDINGS: The left ventricular dimension and systolic function appeared to be within normal limits. The ejection fraction appeared to be in the range of 50%. The right ventricle appeared to be within normal limits for dimension. The left atrium appeared to be mildly dilated. The left atrial appendage appeared to be free from any thrombus. The interatrial septum appeared to be intact. The aortic valve is trileaflet valve and appeared to be extremely calcified with evidence of moderate to severe aortic stenosis with a peak gradient of 55 and mean gradient of 34 mmHg. The mitral valve seems to be also thickened with mild MR. There was mild tricuspid regurgitation seen and the pulmonary artery systolic pressure was not calculated. CONCLUSION: 1. Normal left ventricular dimension and systolic function. 2. Normal right ventricular dimension and systolic function. 3. Normal left atrial appendage. 4. Intact interatrial septum. 5. Trileaflet aortic valve with evidence of at least moderate aortic stenosis with a mean gradient of 34 mmHg. 6. Mitral annular calcifications with mild MR. 7. Normal tricuspid valve and pulmonic valve. MMODL / IJN: [id number] /
[2020-10-07 10:47] VITALS: BP 142/68; PULSE 62
== END 2020-10-07 09:33 | disposition home or self-care (01) ==
LOC: CATHCVL 05:53
PROVIDERS: ATTEND Internal Medicine Interventional Cardiology
DX: I08.0 Rheumatic disorders of both mitral and aortic valves (principal); I25.10 Atherosclerotic heart disease of native coronary artery without angina pectoris; Z95.5 Presence of coronary angioplasty implant and graft; I10 Essential (primary) hypertension; E78.2 Mixed hyperlipidemia; Z87.891 Personal history of nicotine dependence; Z79.02 Long term (current) use of antithrombotics/antiplatelets; Z79.82 Long term (current) use of aspirin; Z79.899 Other long term (current) drug therapy
CPT/HCPCS: 93312; 93320; 93325; J2250; J3010

== ENCOUNTER → 2020-10-24 | Outpatient (CLI) | payer MEDICARE, OTHER ==
[2020-10-24 14:04] LABS: HCT 50.5 % (39.0-53.0); HGB 17.8 gm/dL (13.0-17.5); MCH 36.6 pg (25.0-35.0); MCHC 35.3 g/dL (31.0-37.0); MCV 103.7 fL (80.0-100.0); Macrocytosis Slight; Platelet Count 238 k/uL (150-450); RBC 4.87 m/uL (4.30-5.90); WBC 6.9 k/uL (3.8-10.6)
[2020-10-24 14:14] LABS: Partial Thromboplastin Time 25.5 sec (22.0-30.0); Prothrombin Time 10.9 sec (9.0-12.0)
[2020-10-24 14:17] LABS: ALT 24 U/L (4-49); AST 32 U/L (17-59); African American GFR (CKD) >90 (>60 ml/min/1.73 sqM); Albumin 4.6 g/dL (3.5-5.0); Alkaline Phosphatase 75 U/L (38-126); Anion Gap 9 mmol/L; Blood Urea Nitrogen 12 mg/dL (9-20); Calcium 9.4 mg/dL (8.4-10.2); Carbon Dioxide 27 mmol/L (22-30); Chloride 106 mmol/L (98-107); Glucose 89 mg/dL (74-99); Magnesium 2.2 mg/dL (1.6-2.3); Non-African American GFR(CKD) >90 (>60 ml/min/1.73 sqM); Potassium 4.3 mmol/L (3.5-5.1); Sodium 142 mmol/L (137-145); Total Bilirubin 1.5 mg/dL (0.2-1.3)
[2020-10-24 14:26] LABS: Appearance,Urine Clear (Clear); Bilirubin,Urine Negative (Negative); Blood,Urine Negative (Negative); Color,Urine Yellow; Glucose,Urine (UA) Negative (Negative); Ketones,Urine Negative (Negative); Leukocyte Esterase,Urine Negative (Negative); Nitrite,Urine Negative (Negative); Protein,Urine Negative (Negative); Specific Gravity,Urine 1.009 (1.001-1.035); Urobilinogen,Urine <2.0 mg/dL (<2.0)
--- NOTE | 2020-10-24 14:36 | P.PN ---
Progress Note - Text Progress Note Date: 10/24/20 5 meter walk test completed without difficulty: #1 3.02 sec #2 2.38 sec #3 3.75 sec
[2020-10-24 15:24] LABS: T4, Free (Free Thyroxine) 1.17 ng/dL (0.78-2.19)
--- NOTE | 2020-10-24 16:01 | XR ---
EXAMINATION TYPE: XR chest 2V DATE OF EXAM: 10/24/2020 COMPARISON: 10/14/2019 INDICATION: Presurgical evaluation TECHNIQUE: Single frontal view of the chest is obtained. FINDINGS: The heart size is normal. The pulmonary vasculature is normal. Main pulmonary vessels appear somewhat prominent considered pul monary hypertension. There is 1.2 x 1.0 cm density in the right upper lung field. This could be a pleural plaque or nodule . Consider CT evaluation. Remainder of the lung appears clear. No suspicious infiltrates are evident. Spondylosis thoracic spine. There is hyperinflation. IMPRESSION: 1. Possible right upper lobe nodule with CT is recommended. 2. COPD. 3. Consider pulmonary hypertension.
--- NOTE | 2020-10-24 16:14 | US ---
EXAMINATION TYPE: US carotid duplex BILAT DATE OF EXAM: 10/24/2020 COMPARISON: NONE CLINICAL HISTORY: Aortic stenosis / CAD,Z79.01,Z79.899. Known brachial pressure difference. Patient states having a blockage right side. Preop. HTN controlled with meds. EXAM MEASUREMENTS: RIGHT: Peak Systolic Velocity (PSV) cm/sec ----- Right CCA: 48.8 ----- Right ICA: 82.3 ----- Right ECA: 66.9 ICA/CCA ratio: 1.7 RIGHT: End Diastole cm/sec ----- Right CCA: 0.0 ----- Right ICA: 27.4 ----- Right ECA: 0.0 LEFT: Peak Systolic Velocity (PSV) cm/sec ----- Left CCA: 63.7 ----- Left ICA: 95.6 ----- Left ECA: 69.8 ICA/CCA ratio: 1.5 LEFT: End Diastole cm/sec ----- Left CCA: 13.1 ----- Left ICA: 25.8 ----- Left ECA: 0.0 VERTEBRALS (direction of flow): Right Vertebral: Retrograde Left Vertebral: Antegrade Rhythm: Arrhythmia Bilateral wall thickening. Plaque seen in bilateral CCA and bulbs. No elevated velocities. No sign ificant stenosis. IMPRESSION: 1. Atheromatous plaquing without significant flow-limiting stenosis. NASCET criteria was used in interpretation of this exam? Criteria for Assigning % of Stenosis / Diameter reduction (Estimation based on the indirect measurements of the internal carotid artery velocities (ICA PSV). 1. Normal (no stenosis)=ICA PSV < 125 cm/s: ratio < 2.0: ICA EDV<40 cm/s. 2. Less than 50% stenosis=ICA PSV < 125 cm/s: ratio < 2.0: ICA EDV<40 cm/s. 3. 50 to 69% stenosis=ICA PSV of 125 to 230 cm/s: ration 2.0 ? 4.0: ICA EDV 40-100 cm/s. 4. Greater than 70% stenosis to near occlusion= ICA PSV > 230 cm/s: ratio > 4.0: ICA EDV > 100 cm/s. 5. Near occlusion= ICA PSV velocities may be low or undetectable: variable ratio and ICA EDV. 6. Total occlusion=unable to detect flow.
[2020-10-24 19:10] LABS: Chol/HDL Ratio 2.26; Cholesterol 129 mg/dL (0-200); Triglycerides <50.0 mg/dL (0.0-149.0)
[2020-10-24 21:36] LABS: Hepatitis A Antibody IgM Non-Reactive (Non-Reactive); Hepatitis B Core IgM Non-Reactive (Non-Reactive); Hepatitis B Surface Antigen Non-Reactive (Non-Reactive); Hepatitis C IgG Antibody Non-Reactive (Non-Reactive)
[2020-10-24 22:47] LABS: Hemoglobin A1C 5.4 % (4.0-6.0)
--- NOTE | 2020-10-26 11:59 | P.ARTDOP ---
Arterial Doppler LOWER EXTREMITY ARTERIAL DOPPLER: DATE OF SERVICE: 10/24/2020 Reason for study: Preop CABG. Doppler waveforms: Multiphasic throughout. Pulse volume recording: []. Pressure gradients: None. Ankle-brachial indices: Cannot occlude. Toe brachial indices: [] on the right, [] on the left Impression: Normal flow patterns. Lack of ability to occlude at the ankle suggests calcific wall disease, which does not appear to be flow limiting.
--- NOTE | 2020-10-26 12:01 | P.VSCSTY ---
Greater Saphenous Vein Mapping This is bilateral lower extremity greater saphenous vein mapping. Date of service: 10/24/2020 Vein quality and ultrasound appearance: We see no intraluminal thrombus or obvious wall changes. Vein size groin right : 4.7 x 4.7 groin left: 4.0 x 4.0 High thigh right: 4.0 x 3.6 high thigh left: 4.1 x 3.6 Mid thigh right: 3.3 x 3.1 mid thigh left: 4.0 x 3.3 Above-knee right: 1.7 x 1.6 above- knee left: 3.1 x 2.8 Below knee right: 2.8 x 2.6 below-knee left: 2.8 x 2.4 Mid calf right: 2.6 x 2.0 mid calf left: 3.0 x 2.2 Ankle right: 2.0 x 2.0 ankle left: 2.8 x 1.9 Impression: Usable bilateral greater saphenous vein. There is an area above the right knee that is too small for use as conduit. The left side appears more consistent..
== END | disposition home or self-care (01) ==
LOC: LABPAT 10:52
PROVIDERS: ATTEND Thoracic Surgery (Cardiothoracic Vascular Surgery)
DX: Z01.810 Encounter for preprocedural cardiovascular examination (principal); I65.29 Occlusion and stenosis of unspecified carotid artery; I35.0 Nonrheumatic aortic (valve) stenosis; I10 Essential (primary) hypertension; I25.10 Atherosclerotic heart disease of native coronary artery without angina pectoris; J44.9 Chronic obstructive pulmonary disease, unspecified; Z79.01 Long term (current) use of anticoagulants; Z79.899 Other long term (current) drug therapy; R94.5 Abnormal results of liver function studies
CPT/HCPCS: 36415; 71046; 80053; 80061; 80074; 81003; 83036; 83735; 84439; 84443; 85027; 85610; 85730; 87070; 87086; 93005; 93880; 93922; 93970

== ENCOUNTER → 2020-10-25 | Outpatient (CLI) | payer MEDICARE, OTHER ==
[2020-10-25 12:08] LABS: African American GFR (CKD) >90 (>60 ml/min/1.73 sqM); Blood Urea Nitrogen 15 mg/dL (9-20); Non-African American GFR(CKD) 90 (>60 ml/min/1.73 sqM)
--- NOTE | 2020-10-25 14:55 | CT ---
EXAMINATION TYPE: CT chest w con DATE OF EXAM: 10/25/2020 COMPARISON: 08/26/2009. No interval images HISTORY: Lung nodule CT DLP: 335.5 mGycm, Automated exposure control for dose reduction was used. CONTRAST: Performed injected with 100 mL of Isovue 300. TECHNIQUE: Axial images were obtained at 5 mm thick sections. Reconstructed images are reviewed on [employer] computer in the coronal plane. FINDINGS: Portion of the thyroid visualized is normal. There is a bilobed nodule at the right apex measuring 1.2 x 1.5 cm. This is adjacent to some strandin g. Findings are suspicious for neoplasm. PET CT could be performed for confirmation. There is extensive emphysematous changes present especially to the upper lung moore. No enlarged mediastinal or hilar adenopathy is evident. The ascending aorta diameter at the level o f the main pulmonary artery is 3.5 cm. The main pulmonary artery diameter at the bifurcation is 3.[address] sections are obtained through the upper abdomen. Abdomen is essentially unremarkable. IMPRESSIONS: 1. Bilobed mass at the right apex suspicious for neoplasm. CT recommended for additional evaluation. 2. Extensive symphysis changes
== END | disposition home or self-care (01) ==
LOC: RADCTMAIN 11:29
PROVIDERS: ATTEND Internal Medicine
DX: R91.8 Other nonspecific abnormal finding of lung field (principal)
CPT/HCPCS: 82565; 84520; 71260; 36415; Q9967

== ENCOUNTER 2020-10-28 08:00 | Inpatient (IN) | payer MEDICARE, OTHER ==
[2020-11-04] MEDS ORDERED: PHENYLEPHRINE 40 MG in SODIUM CHLORIDE 0.9% 250 ML IV ONE (05:00)
[2020-11-04] MEDS ORDERED: ALBUMIN HUMAN 5% 500 ML IVPB ONE (05:00)
[2020-11-04] MEDS ORDERED: ELECTROLYTE-A SOLUTION 1,000 ML with POTASSIUM CHLORIDE 40 MEQ, MAGNESIUM SULFATE 16 ME... IV ONE ×5 (05:00)
[2020-11-04] MEDS ORDERED: CLEVIDIPINE BUTYRATE 25 MG in EMPTY BAG 1 BAG IV ONE (05:00)
[2020-11-04] MEDS ORDERED: LACTATED RINGERS 1,000 ML IV ONE (05:00)
[2020-11-04] MEDS ORDERED: PHENYLEPHRINE 10 MG/ML VIAL IV ONE (05:00)
[2020-11-04] MEDS ORDERED: HEPARIN SODIUM,PORCINE 5,000 UNIT in SODIUM CHLORIDE 0.9% 500 ML 500 ML IV ONE (05:00)
[2020-11-04] MEDS ORDERED: ASPIRIN 325 MG TAB PO ONE (05:00)
[2020-11-04] MEDS ORDERED: NITROGLYCERIN-D5W PMX 50 MG in DEXTROSE/WATER 1 250ML.BAG IV ONE (05:00)
[2020-11-04] MEDS ORDERED: ATORVASTATIN 10 MG TAB PO ONE (05:00)
[2020-11-04] MEDS ORDERED: NITROGLYCERIN-D5W PMX 25 MG/250 ML BTL IV ONE (05:00)
[2020-11-04] MEDS ORDERED: PROTAMINE SULFATE 250 MG in EMPTY BAG 1 BAG IV ONE (05:00)
[2020-11-04] MEDS ORDERED: MAGNESIUM SULFATE MG 500 MG/ML IV ONE (05:00)
[2020-11-04] MEDS ORDERED: METOPROLOL TARTRATE 12.5 MG TAB PO ONE (05:00)
[2020-11-04] MEDS ORDERED: PROTAMINE SULFATE 10 MG/ML 25 ML VIAL IV ONE ×2 (05:00→07:46)
[2020-11-04] MEDS ORDERED: NOREPINEPHRINE 4 MG in SODIUM CHLORIDE 0.9% 250 ML IV ONE (05:00)
[2020-11-04] MEDS ORDERED: INSULIN REGULAR 100 UNIT in SODIUM CHLORIDE 0.9% 100 ML IV ONE (05:00)
[2020-11-04] MEDS ORDERED: PAPAVERINE 360 MG in SODIUM CHLORIDE 0.9% 90 ML IV ONE (05:00)
[2020-11-04] MEDS ORDERED: propofoL 1,000 MG/100 ML VIAL IV ONE (05:00)
[2020-11-04] MEDS ORDERED: CALCIUM CHLORIDE 100 MG/ML 10 ML SYRINGE IV ONE (05:00)
[2020-11-04] MEDS ORDERED: SODIUM CHLORIDE 0.9% 1,000 ML IV ONE (05:00)
[2020-11-04] MEDS ORDERED: CHLORHEXIDINE GLUCONATE 15 ML CUP MUCOUS MEM ONE (05:00)
[2020-11-04] MEDS ORDERED: HEPARIN SODIUM 1,000 UN/ML (10ML VL) IV ONE (05:00)
[2020-11-04] MEDS ORDERED: ALBUMIN HUMAN 25% 50 ML IV ONE (05:00)
[2020-11-04] MEDS ORDERED: TRANEXAMIC ACID 2,000 MG in SODIUM CHLORIDE 0.9% 80 ML IV ONE (05:00)
[2020-11-04] MEDS ORDERED: SODIUM BICARB 8.4% 50 ML SYR (1 MEQ/ML) IV ONE (05:00)
[2020-11-04] MEDS ORDERED: ELECTROLYTE-A SOLUTION 1,000 ML with POTASSIUM CHLORIDE 100 MEQ, MAGNESIUM SULFATE 16 M... IV ONE ×5 (05:00)
[2020-11-04] MEDS ORDERED: MANNITOL 25% 12.5 GM/50 ML VIAL IV ONE (05:00)
[2020-11-04] MEDS ORDERED: ELECTROLYTE-R (PH 7.4) 1,000 ML IV.SOLN IV ONE (07:16)
[2020-11-04] MEDS ORDERED: SODIUM CHLORIDE 0.9% IRRIG 1,000 ML BTL IRRIGATION ONE (07:16)
[2020-11-04] MEDS ORDERED: SODIUM CHLORIDE 0.9% 250 ML BAG ONE (07:46)
[2020-11-04] MEDS ORDERED: HEPARIN SODIUM,PORCINE 10,000 UNIT/ML 1 ML VIAL ONE (07:46)
[2020-11-04] MEDS ORDERED: fentaNYL (PF) 50 MCG/ML 50 ML VIAL ONE (07:46)
[2020-11-04] MEDS ORDERED: NITROGLYCERIN-D5W PMX 50 MG/250 ML BOTTLE IV ONE (07:46)
[2020-11-04] MEDS ORDERED: ALBUMIN HUMAN 5% (25gm) 500 ML VIAL IVPB ONE (07:46)
[2020-11-04] MEDS ORDERED: ALBUMIN HUMAN 5% (12.5gm) 250 ML BOTTLE IVPB ONE (07:46)
[2020-11-04] MEDS ORDERED: CALCIUM CHLORIDE 100 MG/ML 10 ML SYRINGE ONE (07:46)
[2020-11-04] MEDS ORDERED: LIDOCAINE 2% SYG (PF) 100 MG/5 ML ONE (07:46)
[2020-11-04] MEDS ORDERED: ceFAZolin 1,000 MG VIAL ONE (07:46)
[2020-11-04] MEDS ORDERED: TRANEXAMIC ACID 1,000 MG/10 ML VIAL ONE (07:46)
[2020-11-04] MEDS ORDERED: MAGNESIUM SULFATE 4 MEQ/ML 10ML VIAL ONE (07:46)
[2020-11-04] MEDS ORDERED: MIDAZOLAM 2 MG/2 ML VIAL ONE (07:46)
[2020-11-04] MEDS ORDERED: SUCCINYLCHOLINE CHLORIDE VIAL 200 MG/10 ML VIAL IV ONE (07:46)
[2020-11-04] MEDS ORDERED: SODIUM CHLORIDE 0.9% 100 ML BAG ONE (07:46)
[2020-11-04] MEDS ORDERED: INSULIN REGULAR 100 UNIT/ML VIAL (IV) IV ONE (07:46)
[2020-11-04] MEDS ORDERED: AMIODARONE 50 MG/ML 3 ML VIAL IV ONE (07:46)
[2020-11-04] MEDS ORDERED: VECURONIUM 10 MG VIAL IV ONE (07:46)
[2020-11-04 08:33] LABS: ABG Glucose Whole Blood 95 mg/dL (75-99); ABG HCO3 29 mmol/L (21-25); ABG Hematocrit 48 % (34.0-46.0); ABG Ionized Calcium 4.8 mg/dL (4.5-5.3); ABG Lactic Acid Whole Blood 0.8 mmol/L (0.5-1.6); ABG PCO2 55 mmHg (35-45); ABG PH 7.32 (7.35-7.45); ABG PO2 148 mmHg (83-108); ABG Potassium Whole Blood 4.6 mmol/L (3.4-4.5); ABG Sodium Whole Blood 143 mmol/L (135-146); ABG TCO2 30 mmol/L (19-24)
[2020-11-04 09:42] LABS: ABG Base Excess -1.4 mmol/L; ABG Glucose Whole Blood 126 mg/dL (75-99); ABG HCO3 27 mmol/L (21-25); ABG Hematocrit 44 % (34.0-46.0); ABG Ionized Calcium 4.7 mg/dL (4.5-5.3); ABG Lactic Acid Whole Blood 0.7 mmol/L (0.5-1.6); ABG Oxygen Saturation 98.9 % (94-97); ABG PCO2 58 mmHg (35-45); ABG PH 7.27 (7.35-7.45); ABG PO2 151 mmHg (83-108); ABG Potassium Whole Blood 4.3 mmol/L (3.4-4.5); ABG Sodium Whole Blood 143 mmol/L (135-146); ABG TCO2 28 mmol/L (19-24)
[2020-11-04 10:23] LABS: ABG Base Excess -2.4 mmol/L; ABG Glucose Whole Blood 136 mg/dL (75-99); ABG HCO3 26 mmol/L (21-25); ABG Hematocrit 33 % (34.0-46.0); ABG Lactic Acid Whole Blood 0.9 mmol/L (0.5-1.6); ABG PCO2 61 mmHg (35-45); ABG PH 7.24 (7.35-7.45); ABG Potassium Whole Blood 5.8 mmol/L (3.4-4.5); ABG Sodium Whole Blood 138 mmol/L (135-146); ABG TCO2 28 mmol/L (19-24)
[2020-11-04 10:52] LABS: ABG Glucose Whole Blood 102 mg/dL (75-99); ABG HCO3 25 mmol/L (21-25); ABG Hematocrit 28 % (34.0-46.0); ABG Lactic Acid Whole Blood 1.4 mmol/L (0.5-1.6); ABG PCO2 50 mmHg (35-45); ABG PH 7.32 (7.35-7.45); ABG PO2 320 mmHg (83-108); ABG Potassium Whole Blood 4.9 mmol/L (3.4-4.5); ABG Sodium Whole Blood 140 mmol/L (135-146); ABG TCO2 27 mmol/L (19-24)
[2020-11-04 11:17] LABS: ABG Base Excess 1.4 mmol/L; ABG Glucose Whole Blood 79 mg/dL (75-99); ABG HCO3 26 mmol/L (21-25); ABG Hematocrit 27 % (34.0-46.0); ABG Ionized Calcium 3.8 mg/dL (4.5-5.3); ABG Lactic Acid Whole Blood 1.5 mmol/L (0.5-1.6); ABG PCO2 38 mmHg (35-45); ABG PH 7.43 (7.35-7.45); ABG PO2 319 mmHg (83-108); ABG Potassium Whole Blood 4.8 mmol/L (3.4-4.5); ABG Sodium Whole Blood 140 mmol/L (135-146); ABG TCO2 27 mmol/L (19-24)
[2020-11-04 11:48] LABS: ABG Base Excess 0.5 mmol/L; ABG Glucose Whole Blood 88 mg/dL (75-99); ABG HCO3 25 mmol/L (21-25); ABG Hematocrit 25 % (34.0-46.0); ABG Lactic Acid Whole Blood 1.7 mmol/L (0.5-1.6); ABG PCO2 37 mmHg (35-45); ABG PH 7.44 (7.35-7.45); ABG PO2 282 mmHg (83-108); ABG Potassium Whole Blood 4.6 mmol/L (3.4-4.5); ABG Sodium Whole Blood 140 mmol/L (135-146); ABG TCO2 26 mmol/L (19-24)
[2020-11-04 12:13] LABS: ABG Base Excess 1.4 mmol/L; ABG Glucose Whole Blood 92 mg/dL (75-99); ABG HCO3 25 mmol/L (21-25); ABG Ionized Calcium 3.6 mg/dL (4.5-5.3); ABG PCO2 36 mmHg (35-45); ABG PH 7.46 (7.35-7.45); ABG PO2 360 mmHg (83-108); ABG Potassium Whole Blood 4.6 mmol/L (3.4-4.5); ABG Sodium Whole Blood 141 mmol/L (135-146); ABG TCO2 26 mmol/L (19-24)
[2020-11-04 13:15] LABS: ABG Base Excess -4.8 mmol/L; ABG Glucose Whole Blood 153 mg/dL (75-99); ABG HCO3 23 mmol/L (21-25); ABG Ionized Calcium 4.5 mg/dL (4.5-5.3); ABG Oxygen Saturation 99.6 % (94-97); ABG PCO2 56 mmHg (35-45); ABG PH 7.22 (7.35-7.45); ABG PO2 187 mmHg (83-108); ABG Potassium Whole Blood 3.9 mmol/L (3.4-4.5); ABG Sodium Whole Blood 143 mmol/L (135-146); ABG TCO2 25 mmol/L (19-24)
[2020-11-04 13:45] LABS: ABG Base Excess -2.7 mmol/L; ABG Glucose Whole Blood 131 mg/dL (75-99); ABG HCO3 25 mmol/L (21-25); ABG Hematocrit 29 % (34.0-46.0); ABG Ionized Calcium 4.1 mg/dL (4.5-5.3); ABG Lactic Acid Whole Blood 1.2 mmol/L (0.5-1.6); ABG Oxygen Saturation 96.7 % (94-97); ABG PCO2 60 mmHg (35-45); ABG PH 7.23 (7.35-7.45); ABG PO2 99 mmHg (83-108); ABG Potassium Whole Blood 3.7 mmol/L (3.4-4.5); ABG Sodium Whole Blood 144 mmol/L (135-146); ABG TCO2 27 mmol/L (19-24)
[2020-11-04 13:59] LABS: ABG PO2 >420 mmHg (83-108)
[2020-11-04 14:01] LABS: ABG Ionized Calcium 3.5 mg/dL (4.5-5.3)
[2020-11-04 14:02] LABS: ABG Hematocrit 24 % (34.0-46.0); ABG Lactic Acid Whole Blood 2.1 mmol/L (0.5-1.6)
[2020-11-04 14:03] LABS: ABG Lactic Acid Whole Blood 2.1 mmol/L (0.5-1.6)
[2020-11-04 14:04] LABS: ABG Hematocrit 24 % (34.0-46.0)
[2020-11-04] MEDS ORDERED: Magnesium Replacement Protocol 1 EACH MISC MISCELLANE PRN (14:27)
[2020-11-04] MEDS ORDERED: IPRATROPIUM-ALBUTEROL 3 ML NEB INHALATION PRN (14:27)
[2020-11-04] MEDS ORDERED: CALCIUM GLUCONATE 2 GM in SODIUM CHLORIDE 0.9% 100 ML IVPB PRN (14:27)
[2020-11-04] MEDS ORDERED: Phosphorus Replacement Protoco 1 EACH MISC MISCELLANE PRN (14:27)
[2020-11-04] MEDS ORDERED: DEXMEDETOMIDINE/0.9% NACL(PMX) 400 MCG in EMPTY BAG 1 BAG IV SCH (14:27)
[2020-11-04] MEDS ORDERED: hydrALAZINE HCL 20 MG/ML 1 ML VIAL IVP PRN (14:27)
[2020-11-04] MEDS ORDERED: NITROGLYCERIN-D5W PMX 50 MG in DEXTROSE/WATER 1 250ML.BAG IV SCH (14:27)
[2020-11-04] MEDS ORDERED: METOCLOPRAMIDE 5 MG/ML 2 ML VIAL IVP PRN (14:27)
[2020-11-04] MEDS ORDERED: AMIODARONE 360 MG in DEXTROSE 5% IN WATER 200 ML IV PRN ×2 (14:27)
[2020-11-04] MEDS ORDERED: CLEVIDIPINE BUTYRATE 25 MG in EMPTY BAG 1 BAG IV SCH (14:27)
[2020-11-04] MEDS ORDERED: ONDANSETRON 4 MG/2 ML VIAL IVP PRN (14:27)
[2020-11-04] MEDS ORDERED: Potassium Replacement Protocol 1 EACH MISC MISCELLANE PRN (14:27)
[2020-11-04] MEDS ORDERED: BENZOCAINE/MENTHOL LOZENG 1 EACH LOZENGE MUCOUS MEM PRN (14:27)
[2020-11-04 15:23] LABS: ABG Base Excess -1.4 mmol/L; ABG HCO3 27 mmol/L (21-25); ABG PO2 72 mmHg (83-108); ABG TCO2 29 mmol/L (19-24); Allen Test Performed? Yes
[2020-11-04 15:23] LABS: Glucose,Whole Blood 149 mg/dL (75-99)
[2020-11-04 15:26] LABS: ABG PCO2 73 mmHg (35-45); ABG PH 7.18 (7.35-7.45)
[2020-11-04 15:30] LABS: INR 1.5 (<1.2); Partial Thromboplastin Time 54.3 sec (22.0-30.0); Prothrombin Time 14.9 sec (9.0-12.0)
[2020-11-04] MEDS: LACTATED RINGERS 1,000 ML IV SCH (15:31)
[2020-11-04 15:32] LABS: HCT 27.7 % (39.0-53.0); MCHC 33.9 g/dL (31.0-37.0); MCV 106.2 fL (80.0-100.0); Macrocytosis Moderate; Mean Platelet Volume 8.7; Platelet Count 157 k/uL (150-450); RBC 2.61 m/uL (4.30-5.90); RDW 13.6 % (11.5-15.5); WBC 12.7 k/uL (3.8-10.6)
[2020-11-04] MEDS: MILRINONE-D5W PMX 20 MG in DEXTROSE/WATER 1 100ML.BAG IV SCH (15:32)
--- NOTE | 2020-11-04 15:36 | XR ---
EXAMINATION TYPE: XR chest 1V portable DATE OF EXAM: 11/04/2020 CLINICAL HISTORY: Postopen cardiac surgery. TECHNIQUE: Single AP portable supine view of the chest is obtained. COMPARISON: Chest x-ray from [address] chest 10 days earlier. FINDINGS: New endotracheal tube terminates at aortic knob level. New orogastric tube cannot be follo wed inferiorly past level of the left atrial appendage clip.. New Right internal jugular Wendel-Magdaleno ca theter terminates at suspected level of pulmonary outflow track. New left-sided chest tube. 2 new med iastinal drainage catheters. Overlying sternal wires and mediastinal clips along with left atrial sammy endage is clipped now identified. Inferior epicardial pacer wires noted. More prominent cardiac silhouette. New small to tiny bilateral pleural effusions. Background chronic emphysematous and pulmonary fibrotic changes redemonstrated with persistent nonspecific right upper l xin nodule. No pneumothorax. Multilevel spurring in the spine redemonstrated. IMPRESSION: 1. Tubes and lines as detailed above. Orogastric tube does not extend below the diaphragm, advise adv ancing. 2. Chronic changes. More prominent heart size with new small to tiny bilateral pleural effusions. Irina pect some fluid overload state on background chronic change. No pneumothorax noted.
[2020-11-04 15:37] LABS: Ionized Calcium 4.4 mg/dL (4.5-5.3)
[2020-11-04 15:38] LABS: HGB 9.4 gm/dL (13.0-17.5)
[2020-11-04] MEDS: INSULIN REGULAR 100 UNIT in SODIUM CHLORIDE 0.9% 100 ML IV SCH (15:44)
[2020-11-04 15:50] LABS: ALT 11 U/L (4-49); AST 46 U/L (17-59); African American GFR (CKD) >90 (>60 ml/min/1.73 sqM); Albumin 2.7 g/dL (3.5-5.0); Alkaline Phosphatase 22 U/L (38-126); Anion Gap 5 mmol/L; Blood Urea Nitrogen 7 mg/dL (9-20); Calcium 7.1 mg/dL (8.4-10.2); Carbon Dioxide 25 mmol/L (22-30); Chloride 109 mmol/L (98-107); Glucose 127 mg/dL (74-99); Magnesium 2.5 mg/dL (1.6-2.3); Non-African American GFR(CKD) >90 (>60 ml/min/1.73 sqM); Sodium 139 mmol/L (137-145); Total Protein 4.4 g/dL (6.3-8.2)
[2020-11-04 15:56] LABS: Band Neutrophils % 9 %; Lymphocytes # (M) 1.65 k/uL (1.0-4.8); Metamyelocytes # (M) 0.38 k/uL (0); Metamyelocytes % 3 %; Monocytes # (M) 0.38 k/uL (0-1.0); Myelocytes # (M) 0.13 k/uL (0); Myelocytes % 1 %; Neutrophils % (M) 71 %; Nucleated Red Blood Cells 0 /100 WBC (0-0); Potassium 4.2 mmol/L (3.5-5.1); Total Cells Counted 100
[2020-11-04] MEDS ORDERED: IPRATROPIUM-ALBUTEROL 3 ML NEB INHALATION SCH (16:00)
[2020-11-04 16:17] LABS: Glucose,Whole Blood 179 mg/dL (75-99)
[2020-11-04] MEDS: HEPARIN SODIUM,PORCINE/PF 5,000 UNIT/0.5 ML SYRINGE SQ SCH ×2 (16:44→23:55)
--- NOTE | 2020-11-04 16:58 | P.CNPUL ---
History of Present Illness Consult date: 11/04/20 History of present illness: This is a 75-year-old male patient, underwent an aortic valve replacement with a bioprosthetic aortic valve and three-vessel bypass surgery with vein grafts and the patient is currently postoperative in intensive care unit. The patient is known to have coronary artery disease. He has undergone previous coronary intervention stenting of an 80% RCA lesion. He was symptomatic and further investigation revealed triple-vessel disease and for that reason he was taken to the operating room. He is also moderately severe aortic stenosis. Currently is sedated on propofol which is running at 25 mg/kg per minute. Is quite sedated on a mechanical ventilator. His blood gases showed a respiratory acidosis with a pH of 7.136 and a pCO2 of 73 and pO2 of 71. This was an assist-control mode at the rate of 14 with a tidal volume of 450 and FiO2 of 1 and a PEEP of 5. Since then, the PEEP has been increased up to 8, and his respiratory rate is up to 24. Current pulse ox on the monitor that 90%.. The patient has 2 mediastinal chest tubes and 1 pleural chest tube. Output from mediastinal chest tube has been around 450 mL and output from the left pleural chest tube is been around 130 mL since the patient up from the operating room. The patient is hemodynamically supported with Primacor at 0.25 mcg/kg per minute and the patient is also on nitroglycerin drip at 25 g 5 minutes. Patient has a cardiac index of 2.3. Pulmonary artery pressures of 61/31. He is on insulin drip running at 1.5 units an hour. He has an adequate urine output. Chest x-ray postop showed adequate expansion of both lungs. No this of pneumothorax. ET tu be is in good location. [place] remains in a good location. The patient is an OG tube and 2 mediastinal and 1 pleural chest tube on of the mandible location there is no evidence of any pneumothorax. Cardiac rhythm is sinus. Review of Systems ROS unobtainable: due to endotracheal tube Past Medical History Past Medical History: Coronary Artery Disease (CAD), Hyperlipidemia, Hypertension, Myocardial Infarction ([place]) Additional Past Medical History / Comment(s): Coronary artery disease, previous coronary stenting of the RCA, previous myocardial infarction, COPD, previous right upper lobe pneumonia, right upper lobe pulmonary nodule that needs to be further investigated and it showed increased evident activity on PET scan, hypertension, hyperlipidemia, elevated PSA Last Myocardial Infarction Date:: UNKNOWN History of Any Multi-Drug Resistant Organisms: None Reported Past Surgical History: Heart Catheterization, Heart Catheterization With Stent Additional Past Surgical History / Comment(s): HEART CATHS X3, Past Anesthesia/Blood Transfusion Reactions: No Reported Reaction Additional Past Anesthesia/Blood Transfusion Reaction / Comment(s): HAS NEVER RECEIVED ANESTHESIA. Date of Last Stent Placement:: 3-4 YRS AGO? Smoking Status: Former smoker - Past Family History Father Family Medical History: Cancer Additional Family Medical History / Comment(s): COLON CANCER Medications and Allergies Home Medications Medication Instructions Recorded Confirmed Type Ascorbic Acid [Vitamin C] 1,000 mg PO DAILY 08/22/15 10/24/20 History Aspirin EC [Ecotrin Low Dose] 81 mg PO DAILY 08/22/15 11/04/20 History Atorvastatin Calcium [Lipitor] 80 mg PO HS 08/22/15 10/24/20 History Ezetimibe [Zetia] 10 mg PO HS 08/22/15 10/24/20 History Metoprolol Tartrate [Lopressor] 50 mg PO BID 08/22/15 10/24/20 History Multivitamins, Thera [Multivitamin 1 tab PO DAILY 08/22/15 10/24/20 History (formulary)] Arbon-3 Fatty Acids/Fish Oil [Fish 1 cap PO DAILY 08/22/15 11/04/20 History Oil 1,000 mg Softgel] Clopidogrel [Plavix] 75 mg PO DAILY #90 tab 10/16/19 10/24/20 Rx Nitroglycerin Sl Tabs [Nitrostat] 0.4 mg SUBLINGUAL Q5M PRN #25 tab 10/17/19 10/24/20 Rx Biotin 10,000 mcg PO DAILY 10/06/20 10/24/20 History Furosemide [Lasix] 40 mg PO DAILY 10/06/20 10/24/20 History amLODIPine BESYLATE [Norvasc] 2.5 mg PO DAILY 10/06/20 11/04/20 History Glucos Sul 2Kcl/MSM/Chond/C/Mn 2 each PO DAILY 10/24/20 11/04/20 History [Glucosamine Chondroitin Cap] Allergies Allergy/AdvReac Type Severity Reaction Status Date / Time No Known Allergies Allergy Verified 11/04/20 06:08 Physical Exam Vitals: Vital Signs Temp Pulse Resp BP BP Pulse Ox 11/04/20 06:02 97.2 F L 69 14 182/81 111/76 91 L Intake and Output 11/04/20 11/04/20 11/04/20 06:59 14:59 22:59 Intake Total 100 52 760 Output Total 4200 Balance 100 -4148 760 Intake: IV 100 52 Blood Product 0 760 Ffp 24 Pher Acda Unit 0 [id number] Ffp 24 Pher Acda Unit 214 [id number] Ffp 24 Pher Acda Cnt2 225 Unit [id number] Platelet Lvds Acda Pas [address] Unit [id number] Output: Urine 1200 Estimated Blood Loss 3000 Other: Weight 78.2 kg Gen. appearance the patient sedated, comfortable not in acute respiratory distress orogastric and orotracheal tube are both in place. The patient is quite successful mechanical ventilator. Head exam was generally normal. There was no scleral icterus or corneal arcus. Mucous membranes were moist. Neck was supple and without jugular venous distension, thyromegaly, or carotid bruits. Carotids were easily palpable bilaterally. There was no adenopathy. The patient has a right IJ [place] catheter in place Lungs sounds are equal and symmetrical bilaterally. Patient has 2 mediastinal chest tube and 1 pleural chest tube. No evidence of any air leak. Output has been noted Cardiac exam revealed the PMI to be normally situated and sized. The rhythm was regular and no extrasystoles were noted during several minutes of auscultation. The first and second heart sounds were normal and physiologic splitting of the second heart sound was noted. There were no murmurs, rubs, clicks, or gallops. Sternum stable clean and intact. Abdominal exam revealed normal bowel sounds. The abdomen was soft, non-tender, and without masses, organomegaly, or appreciable enlargement of the abdominal aorta. Extremities the patient is a RHINA drain in the left lower extremity. Pulses are equal and symmetrical diminished. Extremities are cold. No cyanosis or clubbing. Neurologically sedated, pupils are equal and reactive to light. Results - Laboratory Findings CBC and BMP: 11/04/20 Unknown 11/04/20 Unknown ABG WBC 12.7 k/uL (3.8-10.6) H 11/04/20 Unknown RBC 2.61 m/uL (4.30-5.90) L 11/04/20 Unknown Hgb 9.4 gm/dL (13.0-17.5) L D 11/04/20 Unknown Hct 27.7 % (39.0-53.0) L 11/04/20 Unknown MCV 106.2 fL (80.0-100.0) H 11/04/20 Unknown MCH 36.0 pg (25.0-35.0) H 11/04/20 Unknown MCHC 33.9 g/dL (31.0-37.0) 11/04/20 Unknown RDW 13.6 % (11.5-15.5) 11/04/20 Unknown Plt Count 157 k/uL (150-450) 11/04/20 Unknown MPV 8.7 11/04/20 Unknown Neutrophils % (Manual) 71 % 11/04/20 Unknown Band Neuts % (Manual) 9 % 11/04/20 Unknown Lymphocytes % (Manual) 13 % 11/04/20 Unknown Monocytes % (Manual) 3 % 11/04/20 Unknown Metamyelocytes % 3 % 11/04/20 Unknown Myelocytes % 1 % 11/04/20 Unknown Neutrophils # TECHNICAL COORDINATOR 11/04/20 Unknown Neutrophils # (Manual) 10.10 k/uL (1.3-7.7) H 11/04/20 Unknown Lymphocytes # (Manual) 1.65 k/uL (1.0-4.8) 11/04/20 Unknown Monocytes # (Manual) 0.38 k/uL (0-1.0) 11/04/20 Unknown Metamyelocytes # (Man) 0.38 k/uL (0) H 11/04/20 Unknown Myelocytes # (Manual) 0.13 k/uL (0) H 11/04/20 Unknown Nucleated RBCs 0 /100 WBC (0-0) 11/04/20 Unknown Manual Slide Review Performed 11/04/20 Unknown Macrocytosis Moderate 11/04/20 Unknown PT 14.9 sec (9.0-12.0) H 11/04/20 Unknown INR 1.5 (<1.2) H 11/04/20 Unknown APTT 54.3 sec (22.0-30.0) H 11/04/20 Unknown Sample Site [place] 11/04/20 15:17 ABG pH 7.18 (7.35-7.45) L* 11/04/20 15:17 ABG pCO2 73 mmHg (35-45) H* 11/04/20 15:17 ABG pO2 72 mmHg (83-108) L 11/04/20 15:17 ABG HCO3 27 mmol/L (21-25) H 11/04/20 15:17 ABG Total CO2 29 mmol/L (19-24) H 11/04/20 15:17 ABG O2 Saturation 90.0 % (94-97) L 11/04/20 15:17 ABG Base Excess -1.4 mmol/L 11/04/20 15:17 ABG Hematocrit 29 % (34.0-46.0) L 11/04/20 13:48 Mitchell Test Yes 11/04/20 15:17 ABG Sodium 144 mmol/L (135-146) 11/04/20 13:48 ABG Potassium 3.7 mmol/L (3.4-4.5) 11/04/20 13:48 ABG Ionized Calcium 4.1 mg/dL (4.5-5.3) L 11/04/20 13:48 ABG Glucose 131 mg/dL (75-99) H 11/04/20 13:48 ABG Lactic Acid 1.2 mmol/L (0.5-1.6) 11/04/20 13:48 Hemoglobin 9.6 gm/dL (13.0-17.5) L 11/04/20 13:48 FiO2 100 % 11/04/20 15:17 Sodium 139 mmol/L (137-145) 11/04/20 Unknown Potassium 4.2 mmol/L (3.5-5.1) 11/04/20 Unknown Chloride 109 mmol/L (98-107) H 11/04/20 Unknown Carbon Dioxide 25 mmol/L (22-30) 11/04/20 Unknown Anion Gap 5 mmol/L 11/04/20 Unknown BUN 7 mg/dL (9-20) L 11/04/20 Unknown Creatinine 0.49 mg/dL (0.66-1.25) L 11/04/20 Unknown Est GFR (CKD-EPI)AfAm >90 (>60 ml/min/1.73 sqM) 11/04/20 Unknown Est GFR (CKD-EPI)NonAf >90 (>60 ml/min/1.73 sqM) 11/04/20 Unknown Glucose 127 mg/dL (74-99) H 11/04/20 Unknown POC Glucose (mg/dL) 149 mg/dL (75-99) H 11/04/20 15:02 POC Glu Medical Director/Head Team Physician ID Yin, 11/04/20 15:02 Calcium 7.1 mg/dL (8.4-10.2) L 11/04/20 Unknown Ionized Calcium Jose Miguel 4.4 mg/dL (4.5-5.3) L 11/04/20 Unknown Magnesium 2.5 mg/dL (1.6-2.3) H 11/04/20 Unknown Total Bilirubin 2.0 mg/dL (0.2-1.3) H 11/04/20 Unknown AST 46 U/L (17-59) 11/04/20 Unknown ALT 11 U/L (4-49) 11/04/20 Unknown Alkaline Phosphatase 22 U/L (38-126) L 11/04/20 Unknown Total Protein 4.4 g/dL (6.3-8.2) L 11/04/20 Unknown Albumin 2.7 g/dL (3.5-5.0) L 11/04/20 Unknown Arterial Blood Potassium 3.7 mmol/L (3.4-4.5) 11/04/20 13:48 Arterial Blood Glucose 131 mg/dL (75-99) H 11/04/20 13:48 PT/INR, D-dimer PT 14.9 sec (9.0-12.0) H 11/04/20 Unknown INR 1.5 (<1.2) H 11/04/20 Unknown Abnormal lab findings: Abnormal Labs 10/24/20 11/04/20 11/04/20 13:00 09:45 09:45 WBC RBC Hgb Hct MCV MCH Neutrophils # (Manual) Metamyelocytes # (Man) Myelocytes # (Manual) PT INR APTT ABG pH 7.32 L 7.27 L ABG pCO2 55 H 58 H ABG pO2 148 H 151 H ABG HCO3 29 H 27 H ABG Total CO2 30 H 28 H ABG O2 Saturation 99.0 H 98.9 H ABG Hematocrit 48 H ABG Potassium 4.6 H ABG Ionized Calcium ABG Glucose 126 H ABG Lactic Acid Hemoglobin Chloride BUN Creatinine Glucose POC Glucose (mg/dL) Calcium Ionized Calcium Jose Miguel Magnesium Total Bilirubin Alkaline Phosphatase Total Protein Albumin Arterial Blood Potassium 4.6 H Arterial Blood Glucose 126 H Crossmatch See Detail 11/04/20 11/04/20 11/04/20 10:26 10:55 11:20 WBC RBC Hgb Hct MCV MCH Neutrophils # (Manual) Metamyelocytes # (Man) Myelocytes # (Manual) PT INR APTT ABG pH 7.24 L 7.32 L ABG pCO2 61 H 50 H ABG pO2 >420 H 320 H 319 H ABG HCO3 26 H 26 H ABG Total CO2 28 H 27 H 27 H ABG O2 Saturation 100.0 H 100.0 H 100.0 H ABG Hematocrit 33 L 28 L 27 L ABG Potassium 5.8 H 4.9 H 4.8 H ABG Ionized Calcium 4.0 L 4.0 L 3.8 L ABG Glucose 136 H 102 H ABG Lactic Acid Hemoglobin 10.7 L 9.2 L 8.8 L Chloride BUN Creatinine Glucose POC Glucose (mg/dL) Calcium Ionized Calcium Jose Miguel Magnesium Total Bilirubin Alkaline Phosphatase Total Protein Albumin Arterial Blood Potassium 5.8 H 4.9 H 4.8 H Arterial Blood Glucose 136 H 102 H Crossmatch 11/04/20 11/04/20 11/04/20 11:51 12:16 13:18 WBC RBC Hgb Hct MCV MCH Neutrophils # (Manual) Metamyelocytes # (Man) Myelocytes # (Manual) PT INR APTT ABG pH 7.46 H 7.22 L ABG pCO2 56 H ABG pO2 282 H 360 H 187 H ABG HCO3 ABG Total CO2 26 H 26 H 25 H ABG O2 Saturation 100.0 H 100.0 H 99.6 H ABG Hematocrit 25 L 24 L 24 L ABG Potassium 4.6 H 4.6 H ABG Ionized Calcium 3.5 L* 3.6 L ABG Glucose 153 H ABG Lactic Acid 1.7 H 2.1 H 2.1 H Hemoglobin 8.1 L 7.9 L 7.8 L Chloride BUN Creatinine Glucose POC Glucose (mg/dL) Calcium Ionized Calcium Jose Miguel Magnesium Total Bilirubin Alkaline Phosphatase Total Protein Albumin Arterial Blood Potassium 4.6 H 4.6 H Arterial Blood Glucose 153 H Crossmatch 11/04/20 11/04/20 11/04/20 13:48 15:02 15:17 WBC RBC Hgb Hct MCV MCH Neutrophils # (Manual) Metamyelocytes # (Man) Myelocytes # (Manual) PT INR APTT ABG pH 7.23 L 7.18 L* ABG pCO2 60 H 73 H* ABG pO2 72 L ABG HCO3 27 H ABG Total CO2 27 H 29 H ABG O2 Saturation 90.0 L ABG Hematocrit 29 L ABG Potassium ABG Ionized Calcium 4.1 L ABG Glucose 131 H ABG Lactic Acid Hemoglobin 9.6 L Chloride BUN Creatinine Glucose POC Glucose (mg/dL) 149 H Calcium Ionized Calcium Jose Miguel Magnesium Total Bilirubin Alkaline Phosphatase Total Protein Albumin Arterial Blood Potassium Arterial Blood Glucose 131 H Crossmatch 11/04/20 11/04/20 11/04/20 16:16 Unknown Unknown WBC 12.7 H RBC 2.61 L Hgb 9.4 L D Hct 27.7 L MCV 106.2 H MCH 36.0 H Neutrophils # (Manual) 10.10 H Metamyelocytes # (Man) 0.38 H Myelocytes # (Manual) 0.13 H PT 14.9 H INR 1.5 H APTT 54.3 H ABG pH ABG pCO2 ABG pO2 ABG HCO3 ABG Total CO2 ABG O2 Saturation ABG Hematocrit ABG Potassium ABG Ionized Calcium ABG Glucose ABG Lactic Acid Hemoglobin Chloride BUN Creatinine Glucose POC Glucose (mg/dL) 179 H Calcium Ionized Calcium Jose Miguel Magnesium Total Bilirubin Alkaline Phosphatase Total Protein Albumin Arterial Blood Potassium Arterial Blood Glucose Crossmatch 11/04/20 Unknown WBC RBC Hgb Hct MCV MCH Neutrophils # (Manual) Metamyelocytes # (Man) Myelocytes # (Manual) PT INR APTT ABG pH ABG pCO2 ABG pO2 ABG HCO3 ABG Total CO2 ABG O2 Saturation ABG Hematocrit ABG Potassium ABG Ionized Calcium ABG Glucose ABG Lactic Acid Hemoglobin Chloride 109 H BUN 7 L Creatinine 0.49 L Glucose 127 H POC Glucose (mg/dL) Calcium 7.1 L Ionized Calcium Jose Miguel 4.4 L Magnesium 2.5 H Total Bilirubin 2.0 H Alkaline Phosphatase 22 L Total Protein 4.4 L Albumin 2.7 L Arterial Blood Potassium Arterial Blood Glucose Crossmatch - Diagnostic Findings Chest x-ray: image reviewed Assessment and Plan Plan: 1 multivessel coronary artery disease, symptomatic, post three-vessel bypass surgery with venous graft and aortic valve replacement. The patient is postop day #0. Patient is currently postop still intubated on mechanical ventilator. The patient remains sedated. The patient is currently on a combination of Primacor and nitroglycerin drip. Hemodynamics are being monitored. Adequate cardiac output for now. Pulmonary pressures are slightly elevated. Chest tubes are in place. Output is being monitored at this point in time. 2 acute hypoxic respiratory failure. The blood gas also showed a component of hypercapnic respiratory failure, acute. Necessary ventilator changes were done 3 coronary artery disease with previous stenting of the RCA 4 COPD 5 history of extensive right upper lobe pneumonia 6 history of right upper lobe pulmonary nodule identified on a CAT scan of the chest with an average PET scan obesity workup postop with a higher suspicious for malignancy based on the PET scan findings 7 hypertension 8 hyperlipidemia 9 degenerative arthritis. Plan Necessary ventilator changes were done Monitor the blood gases Keep the patient sedated with propofol for now. Not ready to wean and we will assess his condition and will try to extubated within the window of 6 hours if possible Keep Primacor monitor the cardiac output Keep [place] catheter in place and monitor the pulmonary artery pressures Chest x-ray is noted and there is no evidence of any pneumothorax and the patient has mediastinum and left pleural chest tube and these are being monitored in terms of output Keep insulin drip at 1.5 units an hour We'll continue to follow. Management of the pulmonary nodule needs to be done after the patient's for recovered from his cardiac surgery. Based on my review of the PET scan and when the patient would benefit from a right upper lobe wedge resection/lobectomy at a later stage. High suspicion for malignancy in the righ t upper lobe based on the CAT scan findings.
[2020-11-04 17:13] LABS: Glucose,Whole Blood 165 mg/dL (75-99)
--- NOTE | 2020-11-04 17:15 | OP ---
OPERATIVE REPORT DATE OF OPERATION: 11/04/2020 ATTENDING SURGEON: Dr. Gerson Townsend. ASSISTANTS: 1. Collin Stephenson NP. 2. Murali Thacker NP. PREOPERATIVE DIAGNOSIS: 1. Severe 3-vessel coronary arterial disease. 2. Moderate to severe aortic stenosis. 3. Pulmonary hypertension. 4. Right lung CA. POSTOPERATIVE: 1. Severe 3-vessel coronary arterial disease. 2. Moderate to severe aortic stenosis. 3. Pulmonary hypertension. 4. Right lung CA. PROCEDURE: 1. Aortic valve replacement with a #27 mm [place] Inspiris bioprosthetic aortic valve. 2. Coronary artery bypass grafting x3 with reverse saphenous vein grafts off the aorta to the circumflex artery, the left anterior descending artery and the posterior descending artery with bilateral lower extremity greater saphenous vein endoscopic vein harvesting. 3. Clip ligation of the left atrial appendage with a 35 mm AtriClip. 4. Intraoperative GINI. 5. Medistim graft flow measurements. ANESTHESIA: General. BLOOD LOSS: About 700 mL. SUMMARY: The patient was brought to the operating room, placed in supine position. Following administration of general endotracheal anesthetic, placement of a [place] catheter arterial line, adequate IV access and a [place] catheter, patient was carefully prepped and draped in normal sterile fashion using chlorhexidine paint and sterile towels. Due to the known subclavian stenosis, greater saphenous vein was harvested from both lower extremities via endovascular vein harvesting technique. All branches were doubly tied and divided and the incisions closed in 2 layers. Please make note the preoperative GINI and [place] readings showed pulmonary hypertension with PA pressures of 70-80 systolic with systemic systolic pressures of about 110-120. GINI showed moderate to moderately severe aortic stenosis, no mitral regurgitation, normal left ventricular and right ventricular function. A midline incision in the chest was made and sternum divided. Pericardium was opened. Heart size was mildly enlarged. The aorta was soft. Left pleural space was opened. An attempt was made to harvest the left internal mammary artery; however, it was completely embedded in the bone and there was some element of subclavian stenosis, and therefore it was not used. Patient was heparinized to an AST of greater than 480. The aorta and vena cava were cannulated. Antegrade and retrograde cardioplegic catheters were positioned in the ascending aorta and the coronary sinus. The patient was placed on bypass, cross-clamp placed, heart arrested with 1 L of antegrade followed by 500 mL of retrograde cardioplegia. Retrograde cardioplegia was delivered 300 to 500 mL at the end of each 20-minute interval. First the base of the left atrial appendage was measured at 35 mm. AtriClip was secured at the base, officially obliterating the left atrial appendage. Next, distal anastomoses were constructed. Reverse saphenous vein graft anastomosis to the posterior descending artery was constructed using a 7-0 Prolene running suture. Caliber of this vessel was 1.5 mm. Next, saphenous vein anastomosis to the circumflex artery was constructed in a similar fashion. This was a 1.5 to 1.75 mm vessel. Next the saphenous vein graft anastomosis to the mid left anterior descending artery was constructed using a 7-0 Prolene running suture. Caliber of this vessel was 1.75 mm. Under a single cross-clamp, 3 proximal anastomoses were constructed on the ascending aorta using 6-0 Prolene running suture. At this point, a transverse aortotomy incision was made 2 cm distal to the takeoff of the right coronary artery. A handheld retractor was placed. The aortic valve was trileaflet and significantly calcified. The aortic leaflets were excised, the anulus debrided, and it was irrigated out copiously with 2 L of cold saline. It sized to a 27 mm [place] Inspiris bioprosthetic aortic valve. Tycron 2-0 pledgeted sutures were placed, ventricularly based circumferentially, as the valve was brought into the field. The valve was then prepared in the usual fashion and all sutures passed through the sewing cuff and the valve was seated and seated well. All sutures were secured, tied and cut using the Cor-Knot ligature system device. The aortotomy incision was then closed in a double-layered pledgeted 4-0 Prolene vertical mattress followed by an [id number] stitch from both sides. The patient was placed head down. Complete de-airing maneuver was performed three times. One liter of warm blood retrograde cardioplegia was run. Cross-clamp was removed. Pacing wires were placed. The patient was paced at 80 and brought off bypass. He came off bypass uneventfully with good hemodynamics. Protamine delivered. Patient decannulated. Atrial ventricular pacing wires were placed. Mediastinal chest tubes x2 and one pleural chest tube were placed. At this point, all 3 grafts were measured using the Fjuul graft flow measurement device system. Charts were placed in the patient's chart. All 3 grafts had a pulsatility index of less than 4 with good flows. The sternum was then closed with four #6 sternal wires and 2 [id number] Henlawson sternal cable closure devices. Skin and subcutaneous tissue and fascia were closed in 3 layers. No complications. The patient tolerated the procedure well was taken to the cardiovascular intensive care unit in stable condition. MMCAIO / ABN: [id number] /
[2020-11-04] MEDS: ALBUMIN HUMAN 5% 250 ML in EMPTY BAG 1 BAG IVPB PRN ×2 (17:41→23:45)
[2020-11-04 17:48] LABS: HCT 20.2 % (39.0-53.0); MCH 37.3 pg (25.0-35.0); MCHC 34.9 g/dL (31.0-37.0); MCV 106.8 fL (80.0-100.0); Macrocytosis Moderate; Mean Platelet Volume 8.1; Platelet Count 128 k/uL (150-450); RBC 1.89 m/uL (4.30-5.90); RDW 13.8 % (11.5-15.5); WBC 11.1 k/uL (3.8-10.6)
[2020-11-04] MEDS: methylPREDNISolone SOD SUCCI 40 MG/ML 1 ML VIAL IV SCH ×2 (18:01→23:57)
[2020-11-04 18:15] LABS: Glucose,Whole Blood 142 mg/dL (75-99)
--- NOTE | 2020-11-04 18:28 | P.CONS ---
History of Present Illness - Reason for Consult Consult date: 11/04/20 Medical management Requesting physician: Gerson Townsend - Chief Complaint Aortic valve replacement, 3 vessel bypass - History of Present Illness History of presenting complaint: This is a pleasant 75-year-old patient of Dr. Triana. 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 Marrero known coronary artery disease prior stents. , Hypertension, hyperlipidemia and early emphysema. Patient today has undergone bioprosthetic aortic valve replacement for aortic stenosis and triple-vessel bypass. Currently in the ICU admitted. FiO2 100 and a PEEP of 10. As to mediastinotomy 1 left pleural chest tube. Drips include nitroglycerin, debridement, Primacor, insulin, IV fluids. #2 shows sinus rh ythm. Review of systems: Patient intubated Past medical history to include: Hypertension, hyperlipidemia, coronary artery stent, elevated PSA, emphysema, moderate aortic stenosis Social history: Lives with his son. Patient smoked about a pack a day for about 25 years of more stopped about 30 years ago. Alcohol occasional. Family history: Colon cancer Physical examination: VITAL SIGNS: 98.1, 101, 24, % GENERAL: BMI 24., laying in bed intubated EYES: Pupils equal. Conjunctiva normal. HEENT: External appearance of nose and ears normal, oral cavity-endotracheal tube NECK: JVD unable to assess; masses not palpable. HEART: First and second heart sounds are normal; no edema. LUNGS: Respiratory rate increased; decreased breath sounds. To mediastinotomy and 1 left pleural chest tube ABDOMEN: Soft, nontender, liver spleen not palpable, no masses palpable. PSYCH: Patient sedated. NEUROLOGICAL: Cranial nerves grossly intact; no facial asymmetry, MUSCULAR schedule: Evidence of OA especially in the hands LYMPHATICS: No lymph nodes palpable in the axilla and neck INVESTIGATIONS, reviewed in the clinical context: White count 11.1 hemoglobin 7 platelets 128 Previous labs: 11/03/2020: WBC 6.9 hemoglobin 17.8 platelets 238 potassium 4.3 creatinine 0.75 Coronavirus [PCR]: Not detected Computed tomography scan chest without contrast [10/25/2020]: Bilobed nodule at the right apex 1.2 x 1.5 cm. Some congestion stranding. 2-D echocardiogram [September 2019] EF 50-45%. Hypokinetic vázquez. Moderate aortic stenosis. Moderate mitral stenosis. Assessment and plan: -Aortic valve replacement with a bioprosthetic valve and triple-vessel coronary artery disease Patient's current drips include nitroglycerin, debridement, Primacor, insulin, IV fluids -Acute hypoxic respiratory failure with ventilator support Currently on 100% FiO2 and a PEEP of 10 intubated -Coronary artery disease -Essential hypertension -Hyperlipidemia -Primary osteoarthritis -Emphysema in a previous smoker -Moderate mitral stenosis Follow clinically -Right lung apex bilobed nodule 1.2 x 1.5 cm. Being followed by pulmonary -Acute postprocedure blood loss anemia, as expected from surgery Follow H&H -Acute thrombocytopenia, dilutional Follow CBC Patient's currently intubated. Drips as above. On the ventilator. Has [address] Hemodynamic monitoring. Follow H&H,'s BMP. Thank you Dr. Townsend Past Medical History Past Medical History: Coronary Artery Disease (CAD), Hyperlipidemia, Hypertension, Myocardial Infarction ([place]) Additional Past Medical History / Comment(s): Coronary artery disease, previous coronary stenting of the RCA, previous myocardial infarction, COPD, previous right upper lobe pneumonia, right upper lobe pulmonary nodule that needs to be further investigated and it showed increased evident activity on PET scan, hypertension, hyperlipidemia, elevated PSA Last Myocardial Infarction Date:: UNKNOWN History of Any Multi-Drug Resistant Organisms: None Reported Past Surgical History: Heart Catheterization, Heart Catheterization With Stent Additional Past Surgical History / Comment(s): HEART CATHS X3, Past Anesthesia/Blood Transfusion Reactions: No Reported Reaction Additional Past Anesthesia/Blood Transfusion Reaction / Comm: HAS NEVER RECEIVED ANESTHESIA. Date of Last Stent Placement:: 3-4 YRS AGO? Smoking Status: Former smoker - Past Family History Father Family Medical History: Cancer Additional Family Medical History / Comment(s): COLON CANCER Medications and Allergies Home Medications Medication Instructions Recorded Confirmed Type Ascorbic Acid [Vitamin C] 1,000 mg PO DAILY 08/22/15 10/24/20 History Aspirin EC [Ecotrin Low Dose] 81 mg PO DAILY 08/22/15 11/04/20 History Atorvastatin Calcium [Lipitor] 80 mg PO HS 08/22/15 10/24/20 History Ezetimibe [Zetia] 10 mg PO HS 08/22/15 10/24/20 History Metoprolol Tartrate [Lopressor] 50 mg PO BID 08/22/15 10/24/20 History Multivitamins, Thera [Multivitamin 1 tab PO DAILY 08/22/15 10/24/20 History (formulary)] [place]-3 Fatty Acids/Fish Oil [Fish 1 cap PO DAILY 08/22/15 11/04/20 History Oil 1,000 mg Softgel] Clopidogrel [Plavix] 75 mg PO DAILY #90 tab 10/16/19 10/24/20 Rx Nitroglycerin Sl Tabs [Nitrostat] 0.4 mg SUBLINGUAL Q5M PRN #25 tab 10/17/19 10/24/20 Rx Biotin 10,000 mcg PO DAILY 10/06/20 10/24/20 History Furosemide [Lasix] 40 mg PO DAILY 10/06/20 10/24/20 History amLODIPine BESYLATE [Norvasc] 2.5 mg PO DAILY 10/06/20 11/04/20 History Glucos Sul 2Kcl/MSM/Chond/C/Mn 2 each PO DAILY 10/24/20 11/04/20 History [Glucosamine Chondroitin Cap] Allergies Allergy/AdvReac Type Severity Reaction Status Date / Time No Known Allergies Allergy Verified 11/04/20 06:08 Physical Exam Vitals: Vital Signs Temp Pulse Pulse Resp BP BP Pulse Ox 11/04/20 17:30 103 H 24 93 L 11/04/20 17:20 103 H 24 92 L 11/04/20 17:10 98.1 F 101 H 24 91 L 11/04/20 17:00 98.1 F 103 H 24 90 L 11/04/20 16:50 101 H 24 90 L 11/04/20 16:40 103 H 24 90 L 11/04/20 16:30 97.7 F 103 H 24 89 L 11/04/20 16:20 101 H 24 90 L 11/04/20 16:10 97.3 F L 101 H 24 89 L 11/04/20 16:00 97.3 F L 100 24 89 L 11/04/20 15:50 101 H 24 90 L 11/04/20 15:40 97 F L 102 H 24 92 L 11/04/20 15:30 105 H 24 89 L 11/04/20 15:20 97 F L 105 H 14 89 L 11/04/20 15:10 106 H 14 89 L 11/04/20 15:00 97.0 F L 14 11/04/20 06:02 97.2 F L 69 14 182/81 111/76 91 L Intake and Output 11/04/20 11/04/20 11/04/20 06:59 14:59 22:59 Intake Total 271 73 8359.152 Output Total 4200 1325 Balance 100 -4148 244.152 Intake: IV 100 52 Intake, IV Titration 373.152 Amount Calcium Gluconate 2 gm In 100 Sodium Chloride 0.9% 100 ml @ 100 mls/hr IVPB ONCE PRN Rx#:[id number] Insulin Regular 100 unit 3.072 In Sodium Chloride 0.9% 100 ml @ Per Protocol IV .Q0M [facility] Rx#:[id number] Lactated Ringers 1,000 ml 150 @ 50 mls/hr IV .Q20H [facility] Rx#:[id number] Milrinone-D5w Pmx 20 mg 17.58 In Dextrose/Water 1 100ml .bag @ 0.25 MCG/KG/MIN 5. 865 mls/hr IV .Q17H4M [facility] Rx#:[id number] Nitroglycerin-D5w Pmx 50 4.5 mg In Dextrose/Water 1 250ml.bag @ 5 MCG/MIN 1.5 mls/hr IV .Q24H [facility] Rx#: [id number] ceFAZolin 2 gm In Sodium 50 Chloride 0.9% 50 ml @ 100 mls/hr IVPB Q8HR [facility] Rx# :[id number] propofoL 1,000 mg In 100 48.0 ml @ Per Protocol IV ONCE ONE Rx#:[id number] Blood Product 0 1196 Ffp 24 [address] Unit 215 [id number] Ffp 24 Pher [facility]da Unit 214 [id number] Ffp 24 Pher Acda Unit 221 [id number] Ffp 24 Pher Acda Cnt2 225 Unit [id number] Platelet [facility] [place] [address] Unit [id number] Rc As-1 Unit 0 [id number] Output: Chest Tube Drainage 765 LT pleural 195 Mediastinal 570 Drainage 60 Left Calf 60 Urine 1200 500 Estimated Blood Loss 3000 Other: Voiding Method Indwelling Catheter Weight 78.2 kg ABP, PAP, CO, CI - Last 8 Hours Arterial Blood Pressure 86/43 Arterial Blood Pressure 90/39 Arterial Blood Pressure 93/40 Arterial Blood Pressure 96/41 Arterial Blood Pressure 103/45 Arterial Blood Pressure 106/46 Arterial Blood Pressure 111/48 Arterial Blood Pressure 111/46 Arterial Blood Pressure 110/41 Arterial Blood Pressure 110/46 Arterial Blood Pressure 113/49 Arterial Blood Pressure 111/51 Arterial Blood Pressure 119/53 Arterial Blood Pressure 27/17 Arterial Blood Pressure 127/50 Arterial Blood Pressure 106/106 Pulmonary Artery Pressure 52/31 Pulmonary Artery Pressure 55/33 Pulmonary Artery Pressure 55/30 Pulmonary Artery Pressure 60/31 Pulmonary Artery Pressure 50/35 Pulmonary Artery Pressure 65/32 Pulmonary Artery Pressure 61/31 Pulmonary Artery Pressure 62/31 Pulmonary Artery Pressure 61/28 Pulmonary Artery Pressure 57/29 Pulmonary Artery Pressure 60/34 Pulmonary Artery Pressure 52/34 Pulmonary Artery Pressure 58/37 Pulmonary Artery Pressure 57/36 Pulmonary Artery Pressure 0/0 Pulmonary Artery Pressure 59/27 Cardiac Output 5.8 Cardiac Output 6.5 Cardiac Output 6.6 Cardiac Index 2.9 Cardiac Index 3.3 Cardiac Index 3.3 Results CBC & Chem 7: 11/04/20 Unknown 11/04/20 Unknown Labs: Abnormal Lab Results - Last 24 Hours (Table) 10/24/20 11/04/20 11/04/20 Range/Units 13:00 09:45 09:45 WBC (3.8-10.6) k/uL RBC (4.30-5.90) m/uL Hgb (13.0-17.5) gm/dL Hct (39.0-53.0) % MCV (80.0-100.0) fL MCH (25.0-35.0) pg Plt Count (150-450) k/uL Neutrophils # (Manual) (1.3-7.7) k/uL Metamyelocytes # (Man) (0) k/uL Myelocytes # (Manual) (0) k/uL PT (9.0-12.0) sec INR (<1.2) APTT (22.0-30.0) sec Fibrinogen (200-500) mg/dL ABG pH 7.32 L 7.27 L (7.35-7.45) ABG pCO2 55 H 58 H (35-45) mmHg ABG pO2 148 H 151 H (83-108) mmHg ABG HCO3 29 H 27 H (21-25) mmol/L ABG Total CO2 30 H 28 H (19-24) mmol/L ABG O2 Saturation 99.0 H 98.9 H (94-97) % ABG Hematocrit 48 H (34.0-46.0) % ABG Potassium 4.6 H (3.4-4.5) mmol/L ABG Ionized Calcium (4.5-5.3) mg/dL ABG Glucose 126 H (75-99) mg/dL ABG Lactic Acid (0.5-1.6) mmol/L Hemoglobin (13.0-17.5) gm/dL Chloride (98-107) mmol/L BUN (9-20) mg/dL Creatinine (0.66-1.25) mg/dL Glucose (74-99) mg/dL POC Glucose (mg/dL) (75-99) mg/dL Calcium (8.4-10.2) mg/dL Ionized Calcium Jose Miguel (4.5-5.3) mg/dL Magnesium (1.6-2.3) mg/dL Total Bilirubin (0.2-1.3) mg/dL Alkaline Phosphatase (38-126) U/L Total Protein (6.3-8.2) g/dL Albumin (3.5-5.0) g/dL Arterial Blood Potassium 4.6 H (3.4-4.5) mmol/L Arterial Blood Glucose 126 H (75-99) mg/dL Crossmatch See Detail 11/04/20 11/04/20 11/04/20 Range/Units 10:26 10:55 11:20 WBC (3.8-10.6) k/uL RBC (4.30-5.90) m/uL Hgb (13.0-17.5) gm/dL Hct (39.0-53.0) % MCV (80.0-100.0) fL MCH (25.0-35.0) pg Plt Count (150-450) k/uL Neutrophils # (Manual) (1.3-7.7) k/uL Metamyelocytes # (Man) (0) k/uL Myelocytes # (Manual) (0) k/uL PT (9.0-12.0) sec INR (<1.2) APTT (22.0-30.0) sec Fibrinogen (200-500) mg/dL ABG pH 7.24 L 7.32 L (7.35-7.45) ABG pCO2 61 H 50 H (35-45) mmHg ABG pO2 >420 H 320 H 319 H (83-108) mmHg ABG HCO3 26 H 26 H (21-25) mmol/L ABG Total CO2 28 H 27 H 27 H (19-24) mmol/L ABG O2 Saturation 100.0 H 100.0 H 100.0 H (94-97) % ABG Hematocrit 33 L 28 L 27 L (34.0-46.0) % ABG Potassium 5.8 H 4.9 H 4.8 H (3.4-4.5) mmol/L ABG Ionized Calcium 4.0 L 4.0 L 3.8 L (4.5-5.3) mg/dL ABG Glucose 136 H 102 H (75-99) mg/dL ABG Lactic Acid (0.5-1.6) mmol/L Hemoglobin 10.7 L 9.2 L 8.8 L (13.0-17.5) gm/dL Chloride (98-107) mmol/L BUN (9-20) mg/dL Creatinine (0.66-1.25) mg/dL Glucose (74-99) mg/dL POC Glucose (mg/dL) (75-99) mg/dL Calcium (8.4-10.2) mg/dL Ionized Calcium Jose Miguel (4.5-5.3) mg/dL Magnesium (1.6-2.3) mg/dL Total Bilirubin (0.2-1.3) mg/dL Alkaline Phosphatase (38-126) U/L Total Protein (6.3-8.2) g/dL Albumin (3.5-5.0) g/dL Arterial Blood Potassium 5.8 H 4.9 H 4.8 H (3.4-4.5) mmol/L Arterial Blood Glucose 136 H 102 H (75-99) mg/dL Crossmatch 11/04/20 11/04/20 11/04/20 Range/Units 11:51 12:16 13:18 WBC (3.8-10.6) k/uL RBC (4.30-5.90) m/uL Hgb (13.0-17.5) gm/dL Hct (39.0-53.0) % MCV (80.0-100.0) fL MCH (25.0-35.0) pg Plt Count (150-450) k/uL Neutrophils # (Manual) (1.3-7.7) k/uL Metamyelocytes # (Man) (0) k/uL Myelocytes # (Manual) (0) k/uL PT (9.0-12.0) sec INR (<1.2) APTT (22.0-30.0) sec Fibrinogen (200-500) mg/dL ABG pH 7.46 H 7.22 L (7.35-7.45) ABG pCO2 56 H (35-45) mmHg ABG pO2 282 H 360 H 187 H (83-108) mmHg ABG HCO3 (21-25) mmol/L ABG Total CO2 26 H 26 H 25 H (19-24) mmol/L ABG O2 Saturation 100.0 H 100.0 H 99.6 H (94-97) % ABG Hematocrit 25 L 24 L 24 L (34.0-46.0) % ABG Potassium 4.6 H 4.6 H (3.4-4.5) mmol/L ABG Ionized Calcium 3.5 L* 3.6 L (4.5-5.3) mg/dL ABG Glucose 153 H (75-99) mg/dL ABG Lactic Acid 1.7 H 2.1 H 2.1 H (0.5-1.6) mmol/L Hemoglobin 8.1 L 7.9 L 7.8 L (13.0-17.5) gm/dL Chloride (98-107) mmol/L BUN (9-20) mg/dL Creatinine (0.66-1.25) mg/dL Glucose (74-99) mg/dL POC Glucose (mg/dL) (75-99) mg/dL Calcium (8.4-10.2) mg/dL Ionized Calcium Jose Miguel (4.5-5.3) mg/dL Magnesium (1.6-2.3) mg/dL Total Bilirubin (0.2-1.3) mg/dL Alkaline Phosphatase (38-126) U/L Total Protein (6.3-8.2) g/dL Albumin (3.5-5.0) g/dL Arterial Blood Potassium 4.6 H 4.6 H (3.4-4.5) mmol/L Arterial Blood Glucose 153 H (75-99) mg/dL Crossmatch 11/04/20 11/04/20 11/04/20 Range/Units 13:48 15:02 15:17 WBC (3.8-10.6) k/uL RBC (4.30-5.90) m/uL Hgb (13.0-17.5) gm/dL Hct (39.0-53.0) % MCV (80.0-100.0) fL MCH (25.0-35.0) pg Plt Count (150-450) k/uL Neutrophils # (Manual) (1.3-7.7) k/uL Metamyelocytes # (Man) (0) k/uL Myelocytes # (Manual) (0) k/uL PT (9.0-12.0) sec INR (<1.2) APTT (22.0-30.0) sec Fibrinogen (200-500) mg/dL ABG pH 7.23 L 7.18 L* (7.35-7.45) ABG pCO2 60 H 73 H* (35-45) mmHg ABG pO2 72 L (83-108) mmHg ABG HCO3 27 H (21-25) mmol/L ABG Total CO2 27 H 29 H (19-24) mmol/L ABG O2 Saturation 90.0 L (94-97) % ABG Hematocrit 29 L (34.0-46.0) % ABG Potassium (3.4-4.5) mmol/L ABG Ionized Calcium 4.1 L (4.5-5.3) mg/dL ABG Glucose 131 H (75-99) mg/dL ABG Lactic Acid (0.5-1.6) mmol/L Hemoglobin 9.6 L (13.0-17.5) gm/dL Chloride (98-107) mmol/L BUN (9-20) mg/dL Creatinine (0.66-1.25) mg/dL Glucose (74-99) mg/dL POC Glucose (mg/dL) 149 H (75-99) mg/dL Calcium (8.4-10.2) mg/dL Ionized Calcium Jose Miguel (4.5-5.3) mg/dL Magnesium (1.6-2.3) mg/dL Total Bilirubin (0.2-1.3) mg/dL Alkaline Phosphatase (38-126) U/L Total Protein (6.3-8.2) g/dL Albumin (3.5-5.0) g/dL Arterial Blood Potassium (3.4-4.5) mmol/L Arterial Blood Glucose 131 H (75-99) mg/dL Crossmatch 11/04/20 11/04/20 11/04/20 Range/Units 15:39 16:16 17:08 WBC 11.1 H (3.8-10.6) k/uL RBC 1.89 L (4.30-5.90) m/uL Hgb 7.0 L D (13.0-17.5) gm/dL Hct 20.2 L (39.0-53.0) % MCV 106.8 H (80.0-100.0) fL MCH 37.3 H (25.0-35.0) pg Plt Count 128 L (150-450) k/uL Neutrophils # (Manual) (1.3-7.7) k/uL Metamyelocytes # (Man) (0) k/uL Myelocytes # (Manual) (0) k/uL PT (9.0-12.0) sec INR (<1.2) APTT (22.0-30.0) sec Fibrinogen 130 L (200-500) mg/dL ABG pH (7.35-7.45) ABG pCO2 (35-45) mmHg ABG pO2 (83-108) mmHg ABG HCO3 (21-25) mmol/L ABG Total CO2 (19-24) mmol/L ABG O2 Saturation (94-97) % ABG Hematocrit (34.0-46.0) % ABG Potassium (3.4-4.5) mmol/L ABG Ionized Calcium (4.5-5.3) mg/dL ABG Glucose (75-99) mg/dL ABG Lactic Acid (0.5-1.6) mmol/L Hemoglobin (13.0-17.5) gm/dL Chloride (98-107) mmol/L BUN (9-20) mg/dL Creatinine (0.66-1.25) mg/dL Glucose (74-99) mg/dL POC Glucose (mg/dL) 179 H (75-99) mg/dL Calcium (8.4-10.2) mg/dL Ionized Calcium Jose Miguel (4.5-5.3) mg/dL Magnesium (1.6-2.3) mg/dL Total Bilirubin (0.2-1.3) mg/dL Alkaline Phosphatase (38-126) U/L Total Protein (6.3-8.2) g/dL Albumin (3.5-5.0) g/dL Arterial Blood Potassium (3.4-4.5) mmol/L Arterial Blood Glucose (75-99) mg/dL Crossmatch 11/04/20 11/04/20 11/04/20 Range/Units 17:11 Unknown Unknown WBC 12.7 H (3.8-10.6) k/uL RBC 2.61 L (4.30-5.90) m/uL Hgb 9.4 L D (13.0-17.5) gm/dL Hct 27.7 L (39.0-53.0) % MCV 106.2 H (80.0-100.0) fL MCH 36.0 H (25.0-35.0) pg Plt Count (150-450) k/uL Neutrophils # (Manual) 10.10 H (1.3-7.7) k/uL Metamyelocytes # (Man) 0.38 H (0) k/uL Myelocytes # (Manual) 0.13 H (0) k/uL PT 14.9 H (9.0-12.0) sec INR 1.5 H (<1.2) APTT 54.3 H (22.0-30.0) sec Fibrinogen (200-500) mg/dL ABG pH (7.35-7.45) ABG pCO2 (35-45) mmHg ABG pO2 (83-108) mmHg ABG HCO3 (21-25) mmol/L ABG Total CO2 (19-24) mmol/L ABG O2 Saturation (94-97) % ABG Hematocrit (34.0-46.0) % ABG Potassium (3.4-4.5) mmol/L ABG Ionized Calcium (4.5-5.3) mg/dL ABG Glucose (75-99) mg/dL ABG Lactic Acid (0.5-1.6) mmol/L Hemoglobin (13.0-17.5) gm/dL Chloride (98-107) mmol/L BUN (9-20) mg/dL Creatinine (0.66-1.25) mg/dL Glucose (74-99) mg/dL POC Glucose (mg/dL) 165 H (75-99) mg/dL Calcium (8.4-10.2) mg/dL Ionized Calcium Jose Miguel (4.5-5.3) mg/dL Magnesium (1.6-2.3) mg/dL Total Bilirubin (0.2-1.3) mg/dL Alkaline Phosphatase (38-126) U/L Total Protein (6.3-8.2) g/dL Albumin (3.5-5.0) g/dL Arterial Blood Potassium (3.4-4.5) mmol/L Arterial Blood Glucose (75-99) mg/dL Crossmatch 11/04/20 Range/Units Unknown WBC (3.8-10.6) k/uL RBC (4.30-5.90) m/uL Hgb (13.0-17.5) gm/dL Hct (39.0-53.0) % MCV (80.0-100.0) fL MCH (25.0-35.0) pg Plt Count (150-450) k/uL Neutrophils # (Manual) (1.3-7.7) k/uL Metamyelocytes # (Man) (0) k/uL Myelocytes # (Manual) (0) k/uL PT (9.0-12.0) sec INR (<1.2) APTT (22.0-30.0) sec Fibrinogen (200-500) mg/dL ABG pH (7.35-7.45) ABG pCO2 (35-45) mmHg ABG pO2 (83-108) mmHg ABG HCO3 (21-25) mmol/L ABG Total CO2 (19-24) mmol/L ABG O2 Saturation (94-97) % ABG Hematocrit (34.0-46.0) % ABG Potassium (3.4-4.5) mmol/L ABG Ionized Calcium (4.5-5.3) mg/dL ABG Glucose (75-99) mg/dL ABG Lactic Acid (0.5-1.6) mmol/L Hemoglobin (13.0-17.5) gm/dL Chloride 109 H (98-107) mmol/L BUN 7 L (9-20) mg/dL Creatinine 0.49 L (0.66-1.25) mg/dL Glucose 127 H (74-99) mg/dL POC Glucose (mg/dL) (75-99) mg/dL Calcium 7.1 L (8.4-10.2) mg/dL Ionized Calcium Jose Miguel 4.4 L (4.5-5.3) mg/dL Magnesium 2.5 H (1.6-2.3) mg/dL Total Bilirubin 2.0 H (0.2-1.3) mg/dL Alkaline Phosphatase 22 L (38-126) U/L Total Protein 4.4 L (6.3-8.2) g/dL Albumin 2.7 L (3.5-5.0) g/dL Arterial Blood Potassium (3.4-4.5) mmol/L Arterial Blood Glucose (75-99) mg/dL Crossmatch
[2020-11-04] MEDS ORDERED: NOREPINEPHRINE 4 MG in SODIUM CHLORIDE 0.9% 250 ML IV SCH (18:30)
[2020-11-04] MEDS: ACETAMINOPHEN IV (For NPO) 1,000 MG in EMPTY BAG 1 BAG IVPB SCH ×2 (18:37→23:26)
[2020-11-04 18:48] LABS: Band Neutrophils % 2 %; Eosinophils # (M) 0.11 k/uL (0-0.7); Lymphocytes # (M) 1.67 k/uL (1.0-4.8); Monocytes # (M) 0.22 k/uL (0-1.0); Neutrophils % (M) 80 %; Nucleated Red Blood Cells 0 /100 WBC (0-0); Stomatocytes Present; Total Cells Counted 100
[2020-11-04 19:07] LABS: Glucose,Whole Blood 123 mg/dL (75-99)
[2020-11-04] MEDS ORDERED: MUPIROCIN 2% OINT 22 GM TUBE NASAL ONE (19:15)
[2020-11-04 19:55] LABS: Glucose,Whole Blood 127 mg/dL (75-99)
[2020-11-04] MEDS: IPRATROPIUM-ALBUTEROL 3 ML NEB INHALATION SCH (19:56)
[2020-11-04 20:07] LABS: HGB 7.1 gm/dL (13.0-17.5); MCH 36.1 pg (25.0-35.0); MCHC 35.4 g/dL (31.0-37.0); MCV 102.1 fL (80.0-100.0); Macrocytosis Slight; Mean Platelet Volume 9.2; RBC 1.96 m/uL (4.30-5.90); RDW 14.7 % (11.5-15.5); WBC 8.3 k/uL (3.8-10.6)
[2020-11-04 20:09] LABS: Platelet Count 91 k/uL (150-450)
[2020-11-04 20:21] LABS: Band Neutrophils % 4 %; Lymphocytes # (M) 0.33 k/uL (1.0-4.8); Monocytes # (M) 0.66 k/uL (0-1.0); Neutrophils % (M) 84 %; Nucleated Red Blood Cells 0 /100 WBC (0-0); Polychromasia Present; Rouleaux Present; Stomatocytes Present; Total Cells Counted 100
[2020-11-04 20:41] LABS: ABG Base Excess 2.1 mmol/L; ABG HCO3 27 mmol/L (21-25); ABG PCO2 44 mmHg (35-45); ABG PH 7.39 (7.35-7.45); ABG PO2 85 mmHg (83-108); ABG TCO2 28 mmol/L (19-24)
[2020-11-04 20:45] LABS: Allen Test Performed? no
[2020-11-04 20:55] LABS: Glucose,Whole Blood 133 mg/dL (75-99)
[2020-11-04] MEDS: ATORVASTATIN 80 MG TAB PO SCH (21:45)
[2020-11-04] MEDS: EZETIMIBE 10 MG TAB PO SCH (21:45)
[2020-11-04 22:24] LABS: Glucose,Whole Blood 132 mg/dL (75-99)
[2020-11-04 22:53] LABS: Glucose,Whole Blood 120 mg/dL (75-99)
[2020-11-04 23:36] LABS: Anisocytosis Slight; HCT 23.7 % (39.0-53.0); HGB 8.1 gm/dL (13.0-17.5); MCH 33.5 pg (25.0-35.0); MCHC 34.3 g/dL (31.0-37.0); MCV 97.8 fL (80.0-100.0); Macrocytosis Slight; Mean Platelet Volume 10.1; RBC 2.42 m/uL (4.30-5.90); RDW 17.2 % (11.5-15.5); WBC 10.2 k/uL (3.8-10.6)
[2020-11-04 23:40] LABS: Platelet Count 82 k/uL (150-450)
[2020-11-05 00:18] LABS: Band Neutrophils % 6 %; Lymphocytes # (M) 0.31 k/uL (1.0-4.8); Monocytes # (M) 0.82 k/uL (0-1.0); Neutrophils % (M) 83 %; Nucleated Red Blood Cells 0 /100 WBC (0-0); Total Cells Counted 100
[2020-11-05 00:18] LABS: Glucose,Whole Blood 117 mg/dL (75-99)
[2020-11-05 01:16] LABS: Glucose,Whole Blood 117 mg/dL (75-99)
[2020-11-05 02:09] LABS: Glucose,Whole Blood 118 mg/dL (75-99)
[2020-11-05 03:03] LABS: Glucose,Whole Blood 116 mg/dL (75-99)
[2020-11-05 04:06] LABS: Glucose,Whole Blood 118 mg/dL (75-99)
[2020-11-05 04:14] LABS: Anisocytosis Slight; HCT 21.6 % (39.0-53.0); HGB 7.5 gm/dL (13.0-17.5); MCH 33.8 pg (25.0-35.0); MCHC 34.7 g/dL (31.0-37.0); MCV 97.4 fL (80.0-100.0); Macrocytosis Slight; Mean Platelet Volume 10.7; RBC 2.22 m/uL (4.30-5.90); RDW 17.7 % (11.5-15.5); WBC 9.5 k/uL (3.8-10.6)
[2020-11-05 04:18] LABS: Platelet Count 67 k/uL (150-450)
[2020-11-05 04:24] LABS: Ionized Calcium 4.7 mg/dL (4.5-5.3)
[2020-11-05 04:36] LABS: Band Neutrophils % 17 %; Lymphocytes # (M) 0.48 k/uL (1.0-4.8); Monocytes # (M) 0.38 k/uL (0-1.0); Neutrophils % (M) 74 %; Nucleated Red Blood Cells 0 /100 WBC (0-0)
[2020-11-05 04:37] LABS: Total Cells Counted 200
[2020-11-05 05:07] LABS: Glucose,Whole Blood 119 mg/dL (75-99)
[2020-11-05 05:21] LABS: ABG Base Excess 3.7 mmol/L; ABG HCO3 28 mmol/L (21-25); ABG Oxygen Saturation 94.5 % (94-97); ABG PCO2 41 mmHg (35-45); ABG PH 7.44 (7.35-7.45); ABG PO2 65 mmHg (83-108); ABG TCO2 29 mmol/L (19-24)
[2020-11-05 05:31] LABS: Allen Test Performed? no
[2020-11-05] MEDS: ALBUMIN HUMAN 5% 250 ML in EMPTY BAG 1 BAG IVPB PRN ×2 (05:35→23:12)
[2020-11-05 06:09] LABS: ALT 13 U/L (4-49); AST 62 U/L (17-59); African American GFR (CKD) >90 (>60 ml/min/1.73 sqM); Albumin 2.6 g/dL (3.5-5.0); Alkaline Phosphatase 26 U/L (38-126); Anion Gap 4 mmol/L; Blood Urea Nitrogen 11 mg/dL (9-20); Calcium 7.6 mg/dL (8.4-10.2); Carbon Dioxide 26 mmol/L (22-30); Chloride 110 mmol/L (98-107); Glucose 105 mg/dL (74-99); Magnesium 2.2 mg/dL (1.6-2.3); Non-African American GFR(CKD) >90 (>60 ml/min/1.73 sqM); Potassium 3.6 mmol/L (3.5-5.1); Sodium 140 mmol/L (137-145); Total Bilirubin 1.4 mg/dL (0.2-1.3); Total Protein 4.4 g/dL (6.3-8.2)
[2020-11-05 06:15] LABS: Glucose,Whole Blood 114 mg/dL (75-99)
[2020-11-05] MEDS ORDERED: MAGNESIUM SULFATE-D5W PMX 1 GM in DEXTROSE/WATER 1 100ML.BAG IVPB SCH (06:30)
[2020-11-05] MEDS ORDERED: POTASSIUM BICARBONATE/CIT AC 20 MEQ TABLET.EFF NG-TUBE SCH ×3 (07:00→18:00)
[2020-11-05] MEDS: HEPARIN SODIUM,PORCINE/PF 5,000 UNIT/0.5 ML SYRINGE SQ SCH (07:09)
[2020-11-05 07:16] LABS: ABG Base Excess 3.4 mmol/L; ABG HCO3 27 mmol/L (21-25); ABG Oxygen Saturation 98.2 % (94-97); ABG PCO2 40 mmHg (35-45); ABG PH 7.45 (7.35-7.45); ABG PO2 92 mmHg (83-108); ABG TCO2 29 mmol/L (19-24)
[2020-11-05] MEDS: IPRATROPIUM-ALBUTEROL 3 ML NEB INHALATION SCH ×4 (07:19→19:49)
[2020-11-05 07:26] LABS: Glucose,Whole Blood 115 mg/dL (75-99)
[2020-11-05 08:08] LABS: Glucose,Whole Blood 116 mg/dL (75-99)
--- NOTE | 2020-11-05 08:22 | XR ---
EXAMINATION TYPE: XR chest 1V portable DATE OF EXAM: 11/05/2020 COMPARISON: 11/04/2020 HISTORY: Post Operative Cardiac Surgery FINDINGS: Indwelling tubes and catheters are unchanged. Left-sided chest tube without sizable pneumothorax. Med iastinal drains are in place as well. Left upper lobe and right left upper lobe density may reflect infiltrate and/or atelectasis. Overall mild interval progression. Stable appearance of the cardio-mediastinal structures at this time. Pleural effusion unchanged. IMPRESSION: 1. Left upper lobe and right left upper lobe density may reflect infiltrate and/or atelectasis. Over all mild interval progression. Clinical correlation and follow up until resolution is recommended.
[2020-11-05] MEDS: PANTOPRAZOLE 40 MG/10 ML VIAL IVP SCH (08:50)
[2020-11-05] MEDS: ASPIRIN 325 MG TAB PO SCH (08:50)
[2020-11-05] MEDS: methylPREDNISolone SOD SUCCI 40 MG/ML 1 ML VIAL IV SCH ×3 (08:50→23:27)
[2020-11-05] MEDS: ASCORBIC ACID 500 MG TAB PO SCH (08:51)
[2020-11-05] MEDS: MULTIVITAMINS, THERA 1 EACH TAB PO SCH (08:51)
[2020-11-05] MEDS ORDERED: CLOPIDOGREL 75 MG TAB PO SCH (09:00)
[2020-11-05] MEDS ORDERED: NON FORMULARY DRUG (Biotin [Biotin] 10,000 MCG Capsule) PO SCH (09:00)
[2020-11-05] MEDS ORDERED: MAGNESIUM HYDROXIDE 2,400 MG/10 ML CUP PO PRN (09:00)
--- NOTE | 2020-11-05 09:08 | P.PN ---
Subjective Progress Note Date: 11/05/20 This is a 75-year-old male patient, underwent an aortic valve replacement with a bioprosthetic aortic valve and three-vessel bypass surgery with vein grafts and the patient is currently postoperative in intensive care unit. The patient is known to have coronary artery disease. He has undergone previous coronary intervention stenting of an 80% RCA lesion. He was symptomatic and further investigation revealed triple-vessel disease and for that reason he was taken to the operating room. He is also moderately severe aortic stenosis. Currently is sedated on propofol which is running at 25 mg/kg per minute. Is quite sedated on a mechanical ventilator. His blood gases showed a respiratory acidosis with a pH of 7.136 and a pCO2 of 73 and pO2 of 71. This was an assist-control mode at the rate of 14 with a tidal volume of 450 and FiO2 of 1 and a PEEP of 5. Since then, the PEEP has been increased up to 8, and his respiratory rate is up to 24. Current pulse ox on the monitor that 90%.. The patient has 2 mediastinal chest tubes and 1 pleural chest tube. Output from mediastinal chest tube has been around 450 mL and output from the left pleural chest tube is been around 130 mL since the patient up from the operating room. The patient is hemodynamically supported with Primacor at 0.25 mcg/kg per minute and the patient is also on nitroglycerin drip at 25 g 5 minutes. Patient has a cardiac index of 2.3. Pulmonary artery pressures of 61/31. He is on insulin drip running at 1.5 units an hour. He has an adequate urine output. Chest x-ray postop showed adequate expansion of both lungs. No this of pneumothorax. ET tube is in good location. Slaughter-Magdaleno remains in a good location. The patient is an OG tube and 2 mediastinal and 1 pleural chest tube on of the mandible location there is no evidence of any pneumothorax. Cardiac rhythm is sinus. 11/05/2020, the patient remains on a mechanical ventilator. I was unable to wean him yesterday because of his limited oxygenation. Overnight, the patient was kept on a PEEP of 8 and his FiO2 is down to 90% and he has a tidal volume of 450 with a rate of 24. His peak airway pressure this morning is at 24. The morning blood gases showed a pH of 7.44 with a pCO2 of 41 and pO2 of 65. Based on that, I increased the PEEP up to 10 and 30. Blood gases showed a pH of 7.45 with a pCO2 of 40 and pO2 of 92. His FiO2 subsequently was found to 60%. This current pulse ox is 93%. He remains sedated with propofol and he is currently on 20 mcg/kg per minute and is well rested for now. He has 2 mediastinal chest tubes and a left pleural chest tube. Output from the mediastinal chest tube has been 10-20 mL's an hour and from the pleural chest tube is in order of 10-20 mL an hour. The patient's is hemodynamically stable. He is off milrinone for now. Cardiac index is in order of 2.4 with an output of 4.8. There has been impr ovement in the pulmonary artery pressures which is dropped down to 43/25. His CVP is currently at 8. His morning hemoglobin was at 7.5 and the patient was given a unit of packed RBC. He has a RHINA drain in his left lower extremity, output is bloody and minimal at this point in time. His cardiac rhythm is sinus. He is on an insulin drip running at 1.5 units an hour. He is off the nitroglycerin drip. He was given IV Solu Medrol yesterday regarding COPD and some increased bronchospasm and wheeze. He is also on bronchodilators. Chest x-ray from today shows adequate expansion of both lungs. There is a right upper lobe pulmonary nodule that was evident on the previous PET scan. Chronic no dularity and scarring in the left upper lobe also. No sizable pneumothorax. Minimal atelectatic changes and effusion the lung bases. Mediastinal chest tubes and left pleural chest tube of been in good location. Count is up from 82 down to 67. Also is following some simple commands and he can be aroused out of his sedation upon stimulation. Objective - Vital Signs Vital signs: Vital Signs Temp 100.3 F H 11/05/20 08:23 Pulse 71 11/05/20 08:23 Resp 28 H 11/05/20 08:23 BP 93/39 11/05/20 08:23 Pulse Ox 95 11/05/20 08:23 Intake & Output 11/04/20 11/05/20 11/05/20 18:59 06:59 18:59 Intake Total 7402.684 3590.190 103.548 Output Total 5635 1460 70 Balance -3808.923 60.190 33.548 Weight 89 kg Intake: IV 52 730 70 CO/CI 180 20 Lactated Ringers 1,000 ml 550 50 @ 50 mls/hr IV .Q20H [facility] Rx#:[id number] Intake, IV Titration 578.077 376.190 33.548 Amount ACETAMINOPHEN IV (For NPO 100 ) 1,000 mg In Empty Bag 1 bag @ 400 mls/hr IVPB Q6HR [facility] Rx#:[id number] Calcium Gluconate 2 gm In 100 Sodium Chloride 0.9% 100 ml @ 100 mls/hr IVPB ONCE PRN Rx#:[id number] Insulin Regular 100 unit 6.725 9.376 In Sodium Chloride 0.9% 100 ml @ Per Protocol IV .Q0M [facility] Rx#:[id number] Lactated Ringers 1,000 ml 200 50 @ 50 mls/hr IV .Q20H [facility] Rx#:[id number] Milrinone-D5w Pmx 20 mg 19.88 34.558 In Dextrose/Water 1 100ml .bag @ 0.1 MCG/KG/MIN 2. 346 mls/hr IV .Q24H [facility] Rx#:[id number] Nitroglycerin-D5w Pmx 50 6.0 9.775 mg In Dextrose/Water 1 250ml.bag @ 5 MCG/MIN 1.5 mls/hr IV .Q24H [facility] Rx#: [id number] Norepinephrine 4 mg In 74.683 Sodium Chloride 0.9% 250 ml @ 0.05 MCG/KG/MIN 14. 897 mls/hr IV .Q17H4M [facility] Rx#:[id number] ceFAZolin 2 gm In Sodium 50 Chloride 0.9% 50 ml @ 100 mls/hr IVPB Q8HR [facility] Rx# :[id number] propofoL 1,000 mg In 100 59.5 16.1 ml @ Per Protocol IV ONCE ONE Rx#:[id number] propofoL 1,000 mg In 35.972 181.698 33.548 Empty Bag 1 bag @ Titrate IV .Q0M [facility] Rx#: [id number] Blood Product 1196 414 0 Ffp 24 Pher Acda Unit 215 [id number] Ffp 24 Pher Acda Unit 214 [id number] Ffp 24 Pher Acda Unit 221 [id number] Ffp 24 Pher Acda Cnt2 225 Unit [id number] Platelet Lvds Acda Pas [address] Unit [id number] Pooled Cryoprecipitate 0 104 Unit [id number] Rc As-1 Unit 0 [id number] Rc As-1 Unit 310 [id number] Rc As-1 Unit 0 [id number] Output: Chest Tube Drainage 815 480 30 Mediastinal 590 230 10 medistinal #1 225 250 20 Gastric Drainage 400 Drainage 60 20 Left Calf 60 20 Urine 1760 560 40 Estimated Blood Loss 3000 Other: Voiding Method Indwelling Catheter Indwelling Catheter ABP, PAP, CO, CI - Last Documented Arterial Blood Pressure 103/44 Pulmonary Artery Pressure 45/25 Cardiac Output 5.4 Cardiac Index 2.7 - Exam Gen. appearance the patient sedated, comfortable not in acute respiratory distress orogastric and orotracheal tube are both in place. The patient is quite successful mechanical ventilator. Head exam was generally normal. There was no scleral icterus or corneal arcus. Mucous membranes were moist. Neck was supple and without jugular venous distension, thyromegaly, or carotid bruits. Carotids were easily palpable bilaterally. There was no adenopathy. The patient has a right IJ Slaughter-Magdaleno catheter in place Lungs sounds are equal and symmetrical bilaterally. Patient has 2 mediastinal chest tube and 1 pleural chest tube. No evidence of any air leak. Output has been noted Cardiac exam revealed the PMI to be normally situated and sized. The rhythm was regular and no extrasystoles were noted during several minutes of auscultation. The first and second heart sounds were normal and physiologic splitting of the second heart sound was noted. There were no murmurs, rubs, clicks, or gallops. Sternum stable clean and intact. Abdominal exam revealed normal bowel sounds. The abdomen was soft, non-tender, and without masses, organomegaly, or appreciable enlargement of the abdominal aorta. Extremities the patient is a RHINA drain in the left lower extremity. Pulses are equal and symmetrical diminished. Extremities are cold. No cyanosis or clubbing. Neurologically sedated, pupils are equal and reactive to light. - Labs CBC & Chem 7: 11/05/20 04:00 11/05/20 04:00 Labs: Abnormal Lab Results - Last 24 Hours (Table) 08/12/0611/04/20 11/04/20 Range/Units 13:00 09:45 09:45 WBC (3.8-10.6) k/uL RBC (4.30-5.90) m/uL Hgb (13.0-17.5) gm/dL Hct (39.0-53.0) % MCV (80.0-100.0) fL MCH (25.0-35.0) pg RDW (11.5-15.5) % Plt Count (150-450) k/uL Neutrophils # (Manual) (1.3-7.7) k/uL Lymphocytes # (Manual) (1.0-4.8) k/uL Metamyelocytes # (Man) (0) k/uL Myelocytes # (Manual) (0) k/uL PT (9.0-12.0) sec INR (<1.2) APTT (22.0-30.0) sec Fibrinogen (200-500) mg/dL ABG pH 7.32 L 7.27 L (7.35-7.45) ABG pCO2 55 H 58 H (35-45) mmHg ABG pO2 148 H 151 H (83-108) mmHg ABG HCO3 29 H 27 H (21-25) mmol/L ABG Total CO2 30 H 28 H (19-24) mmol/L ABG O2 Saturation 99.0 H 98.9 H (94-97) % ABG Hematocrit 48 H (34.0-46.0) % ABG Potassium 4.6 H (3.4-4.5) mmol/L ABG Ionized Calcium (4.5-5.3) mg/dL ABG Glucose 126 H (75-99) mg/dL ABG Lactic Acid (0.5-1.6) mmol/L Hemoglobin (13.0-17.5) gm/dL Chloride (98-107) mmol/L BUN (9-20) mg/dL Creatinine (0.66-1.25) mg/dL Glucose (74-99) mg/dL POC Glucose (mg/dL) (75-99) mg/dL Calcium (8.4-10.2) mg/dL Ionized Calcium Jose Miguel (4.5-5.3) mg/dL Magnesium (1.6-2.3) mg/dL Total Bilirubin (0.2-1.3) mg/dL AST (17-59) U/L Alkaline Phosphatase (38-126) U/L Total Protein (6.3-8.2) g/dL Albumin (3.5-5.0) g/dL Arterial Blood Potassium 4.6 H (3.4-4.5) mmol/L Arterial Blood Glucose 126 H (75-99) mg/dL Crossmatch See Detail 11/04/20 11/04/20 11/04/20 Range/Units 10:26 10:55 11:20 WBC (3.8-10.6) k/uL RBC (4.30-5.90) m/uL Hgb (13.0-17.5) gm/dL Hct (39.0-53.0) % MCV (80.0-100.0) fL MCH (25.0-35.0) pg RDW (11.5-15.5) % Plt Count (150-450) k/uL Neutrophils # (Manual) (1.3-7.7) k/uL Lymphocytes # (Manual) (1.0-4.8) k/uL Metamyelocytes # (Man) (0) k/uL Myelocytes # (Manual) (0) k/uL PT (9.0-12.0) sec INR (<1.2) APTT (22.0-30.0) sec Fibrinogen (200-500) mg/dL ABG pH 7.24 L 7.32 L (7.35-7.45) ABG pCO2 61 H 50 H (35-45) mmHg ABG pO2 >420 H 320 H 319 H (83-108) mmHg ABG HCO3 26 H 26 H (21-25) mmol/L ABG Total CO2 28 H 27 H 27 H (19-24) mmol/L ABG O2 Saturation 100.0 H 100.0 H 100.0 H (94-97) % ABG Hematocrit 33 L 28 L 27 L (34.0-46.0) % ABG Potassium 5.8 H 4.9 H 4.8 H (3.4-4.5) mmol/L ABG Ionized Calcium 4.0 L 4.0 L 3.8 L (4.5-5.3) mg/dL ABG Glucose 136 H 102 H (75-99) mg/dL ABG Lactic Acid (0.5-1.6) mmol/L Hemoglobin 10.7 L 9.2 L 8.8 L (13.0-17.5) gm/dL Chloride (98-107) mmol/L BUN (9-20) mg/dL Creatinine (0.66-1.25) mg/dL Glucose (74-99) mg/dL POC Glucose (mg/dL) (75-99) mg/dL Calcium (8.4-10.2) mg/dL Ionized Calcium Jose Miguel (4.5-5.3) mg/dL Magnesium (1.6-2.3) mg/dL Total Bilirubin (0.2-1.3) mg/dL AST (17-59) U/L Alkaline Phosphatase (38-126) U/L Total Protein (6.3-8.2) g/dL Albumin (3.5-5.0) g/dL Arterial Blood Potassium 5.8 H 4.9 H 4.8 H (3.4-4.5) mmol/L Arterial Blood Glucose 136 H 102 H (75-99) mg/dL Crossmatch 11/04/20 11/04/20 11/04/20 Range/Units 11:51 12:16 13:18 WBC (3.8-10.6) k/uL RBC (4.30-5.90) m/uL Hgb (13.0-17.5) gm/dL Hct (39.0-53.0) % MCV (80.0-100.0) fL MCH (25.0-35.0) pg RDW (11.5-15.5) % Plt Count (150-450) k/uL Neutrophils # (Manual) (1.3-7.7) k/uL Lymphocytes # (Manual) (1.0-4.8) k/uL Metamyelocytes # (Man) (0) k/uL Myelocytes # (Manual) (0) k/uL PT (9.0-12.0) sec INR (<1.2) APTT (22.0-30.0) sec Fibrinogen (200-500) mg/dL ABG pH 7.46 H 7.22 L (7.35-7.45) ABG pCO2 56 H (35-45) mmHg ABG pO2 282 H 360 H 187 H (83-108) mmHg ABG HCO3 (21-25) mmol/L ABG Total CO2 26 H 26 H 25 H (19-24) mmol/L ABG O2 Saturation 100.0 H 100.0 H 99.6 H (94-97) % ABG Hematocrit 25 L 24 L 24 L (34.0-46.0) % ABG Potassium 4.6 H 4.6 H (3.4-4.5) mmol/L ABG Ionized Calcium 3.5 L* 3.6 L (4.5-5.3) mg/dL ABG Glucose 153 H (75-99) mg/dL ABG Lactic Acid 1.7 H 2.1 H 2.1 H (0.5-1.6) mmol/L Hemoglobin 8.1 L 7.9 L 7.8 L (13.0-17.5) gm/dL Chloride (98-107) mmol/L BUN (9-20) mg/dL Creatinine (0.66-1.25) mg/dL Glucose (74-99) mg/dL POC Glucose (mg/dL) (75-99) mg/dL Calcium (8.4-10.2) mg/dL Ionized Calcium Jose Miguel (4.5-5.3) mg/dL Magnesium (1.6-2.3) mg/dL Total Bilirubin (0.2-1.3) mg/dL AST (17-59) U/L Alkaline Phosphatase (38-126) U/L Total Protein (6.3-8.2) g/dL Albumin (3.5-5.0) g/dL Arterial Blood Potassium 4.6 H 4.6 H (3.4-4.5) mmol/L Arterial Blood Glucose 153 H (75-99) mg/dL Crossmatch 11/04/20 11/04/20 11/04/20 Range/Units 13:48 15:00 15:00 WBC 12.7 H (3.8-10.6) k/uL RBC 2.61 L (4.30-5.90) m/uL Hgb 9.4 L D (13.0-17.5) gm/dL Hct 27.7 L (39.0-53.0) % MCV 106.2 H (80.0-100.0) fL MCH 36.0 H (25.0-35.0) pg RDW (11.5-15.5) % Plt Count (150-450) k/uL Neutrophils # (Manual) 10.10 H (1.3-7.7) k/uL Lymphocytes # (Manual) (1.0-4.8) k/uL Metamyelocytes # (Man) 0.38 H (0) k/uL Myelocytes # (Manual) 0.13 H (0) k/uL PT 14.9 H (9.0-12.0) sec INR 1.5 H (<1.2) APTT 54.3 H (22.0-30.0) sec Fibrinogen (200-500) mg/dL ABG pH 7.23 L (7.35-7.45) ABG pCO2 60 H (35-45) mmHg ABG pO2 (83-108) mmHg ABG HCO3 (21-25) mmol/L ABG Total CO2 27 H (19-24) mmol/L ABG O2 Saturation (94-97) % ABG Hematocrit 29 L (34.0-46.0) % ABG Potassium (3.4-4.5) mmol/L ABG Ionized Calcium 4.1 L (4.5-5.3) mg/dL ABG Glucose 131 H (75-99) mg/dL ABG Lactic Acid (0.5-1.6) mmol/L Hemoglobin 9.6 L (13.0-17.5) gm/dL Chloride (98-107) mmol/L BUN (9-20) mg/dL Creatinine (0.66-1.25) mg/dL Glucose (74-99) mg/dL POC Glucose (mg/dL) (75-99) mg/dL Calcium (8.4-10.2) mg/dL Ionized Calcium Jose Miguel (4.5-5.3) mg/dL Magnesium (1.6-2.3) mg/dL Total Bilirubin (0.2-1.3) mg/dL AST (17-59) U/L Alkaline Phosphatase (38-126) U/L Total Protein (6.3-8.2) g/dL Albumin (3.5-5.0) g/dL Arterial Blood Potassium (3.4-4.5) mmol/L Arterial Blood Glucose 131 H (75-99) mg/dL Crossmatch 11/04/20 11/04/20 11/04/20 Range/Units 15:00 15:02 15:17 WBC (3.8-10.6) k/uL RBC (4.30-5.90) m/uL Hgb (13.0-17.5) gm/dL Hct (39.0-53.0) % MCV (80.0-100.0) fL MCH (25.0-35.0) pg RDW (11.5-15.5) % Plt Count (150-450) k/uL Neutrophils # (Manual) (1.3-7.7) k/uL Lymphocytes # (Manual) (1.0-4.8) k/uL Metamyelocytes # (Man) (0) k/uL Myelocytes # (Manual) (0) k/uL PT (9.0-12.0) sec INR (<1.2) APTT (22.0-30.0) sec Fibrinogen (200-500) mg/dL ABG pH 7.18 L* (7.35-7.45) ABG pCO2 73 H* (35-45) mmHg ABG pO2 72 L (83-108) mmHg ABG HCO3 27 H (21-25) mmol/L ABG Total CO2 29 H (19-24) mmol/L ABG O2 Saturation 90.0 L (94-97) % ABG Hematocrit (34.0-46.0) % ABG Potassium (3.4-4.5) mmol/L ABG Ionized Calcium (4.5-5.3) mg/dL ABG Glucose (75-99) mg/dL ABG Lactic Acid (0.5-1.6) mmol/L Hemoglobin (13.0-17.5) gm/dL Chloride 109 H (98-107) mmol/L BUN 7 L (9-20) mg/dL Creatinine 0.49 L (0.66-1.25) mg/dL Glucose 127 H (74-99) mg/dL POC Glucose (mg/dL) 149 H (75-99) mg/dL Calcium 7.1 L (8.4-10.2) mg/dL Ionized Calcium Jose Miguel 4.4 L (4.5-5.3) mg/dL Magnesium 2.5 H (1.6-2.3) mg/dL Total Bilirubin 2.0 H (0.2-1.3) mg/dL AST (17-59) U/L Alkaline Phosphatase 22 L (38-126) U/L Total Protein 4.4 L (6.3-8.2) g/dL Albumin 2.7 L (3.5-5.0) g/dL Arterial Blood Potassium (3.4-4.5) mmol/L Arterial Blood Glucose (75-99) mg/dL Crossmatch 11/04/20 11/04/20 11/04/20 Range/Units 15:39 16:16 17:08 WBC 11.1 H (3.8-10.6) k/uL RBC 1.89 L (4.30-5.90) m/uL Hgb 7.0 L D (13.0-17.5) gm/dL Hct 20.2 L (39.0-53.0) % MCV 106.8 H (80.0-100.0) fL MCH 37.3 H (25.0-35.0) pg RDW (11.5-15.5) % Plt Count 128 L (150-450) k/uL Neutrophils # (Manual) 9.10 H (1.3-7.7) k/uL Lymphocytes # (Manual) (1.0-4.8) k/uL Metamyelocytes # (Man) (0) k/uL Myelocytes # (Manual) (0) k/uL PT (9.0-12.0) sec INR (<1.2) APTT (22.0-30.0) sec Fibrinogen 130 L (200-500) mg/dL ABG pH (7.35-7.45) ABG pCO2 (35-45) mmHg ABG pO2 (83-108) mmHg ABG HCO3 (21-25) mmol/L ABG Total CO2 (19-24) mmol/L ABG O2 Saturation (94-97) % ABG Hematocrit (34.0-46.0) % ABG Potassium (3.4-4.5) mmol/L ABG Ionized Calcium (4.5-5.3) mg/dL ABG Glucose (75-99) mg/dL ABG Lactic Acid (0.5-1.6) mmol/L Hemoglobin (13.0-17.5) gm/dL Chloride (98-107) mmol/L BUN (9-20) mg/dL Creatinine (0.66-1.25) mg/dL Glucose (74-99) mg/dL POC Glucose (mg/dL) 179 H (75-99) mg/dL Calcium (8.4-10.2) mg/dL Ionized Calcium Jose Miguel (4.5-5.3) mg/dL Magnesium (1.6-2.3) mg/dL Total Bilirubin (0.2-1.3) mg/dL AST (17-59) U/L Alkaline Phosphatase (38-126) U/L Total Protein (6.3-8.2) g/dL Albumin (3.5-5.0) g/dL Arterial Blood Potassium (3.4-4.5) mmol/L Arterial Blood Glucose (75-99) mg/dL Crossmatch 11/04/20 11/04/20 11/04/20 Range/Units 17:11 18:14 19:05 WBC (3.8-10.6) k/uL RBC (4.30-5.90) m/uL Hgb (13.0-17.5) gm/dL Hct (39.0-53.0) % MCV (80.0-100.0) fL MCH (25.0-35.0) pg RDW (11.5-15.5) % Plt Count (150-450) k/uL Neutrophils # (Manual) (1.3-7.7) k/uL Lymphocytes # (Manual) (1.0-4.8) k/uL Metamyelocytes # (Man) (0) k/uL Myelocytes # (Manual) (0) k/uL PT (9.0-12.0) sec INR (<1.2) APTT (22.0-30.0) sec Fibrinogen (200-500) mg/dL ABG pH (7.35-7.45) ABG pCO2 (35-45) mmHg ABG pO2 (83-108) mmHg ABG HCO3 (21-25) mmol/L ABG Total CO2 (19-24) mmol/L ABG O2 Saturation (94-97) % ABG Hematocrit (34.0-46.0) % ABG Potassium (3.4-4.5) mmol/L ABG Ionized Calcium (4.5-5.3) mg/dL ABG Glucose (75-99) mg/dL ABG Lactic Acid (0.5-1.6) mmol/L Hemoglobin (13.0-17.5) gm/dL Chloride (98-107) mmol/L BUN (9-20) mg/dL Creatinine (0.66-1.25) mg/dL Glucose (74-99) mg/dL POC Glucose (mg/dL) 165 H 142 H 123 H (75-99) mg/dL Calcium (8.4-10.2) mg/dL Ionized Calcium Jose Miguel (4.5-5.3) mg/dL Magnesium (1.6-2.3) mg/dL Total Bilirubin (0.2-1.3) mg/dL AST (17-59) U/L Alkaline Phosphatase (38-126) U/L Total Protein (6.3-8.2) g/dL Albumin (3.5-5.0) g/dL Arterial Blood Potassium (3.4-4.5) mmol/L Arterial Blood Glucose (75-99) mg/dL Crossmatch 11/04/20 11/04/20 11/04/20 Range/Units 19:51 19:53 20:40 WBC (3.8-10.6) k/uL RBC 1.96 L (4.30-5.90) m/uL Hgb 7.1 L (13.0-17.5) gm/dL Hct 20.0 L (39.0-53.0) % MCV 102.1 H (80.0-100.0) fL MCH 36.1 H (25.0-35.0) pg RDW (11.5-15.5) % Plt Count 91 L (150-450) k/uL Neutrophils # (Manual) (1.3-7.7) k/uL Lymphocytes # (Manual) 0.33 L (1.0-4.8) k/uL Metamyelocytes # (Man) (0) k/uL Myelocytes # (Manual) (0) k/uL PT (9.0-12.0) sec INR (<1.2) APTT (22.0-30.0) sec Fibrinogen (200-500) mg/dL ABG pH (7.35-7.45) ABG pCO2 (35-45) mmHg ABG pO2 (83-108) mmHg ABG HCO3 27 H (21-25) mmol/L ABG Total CO2 28 H (19-24) mmol/L ABG O2 Saturation (94-97) % ABG Hematocrit (34.0-46.0) % ABG Potassium (3.4-4.5) mmol/L ABG Ionized Calcium (4.5-5.3) mg/dL ABG Glucose (75-99) mg/dL ABG Lactic Acid (0.5-1.6) mmol/L Hemoglobin (13.0-17.5) gm/dL Chloride (98-107) mmol/L BUN (9-20) mg/dL Creatinine (0.66-1.25) mg/dL Glucose (74-99) mg/dL POC Glucose (mg/dL) 127 H (75-99) mg/dL Calcium (8.4-10.2) mg/dL Ionized Calcium Jose Miguel (4.5-5.3) mg/dL Magnesium (1.6-2.3) mg/dL Total Bilirubin (0.2-1.3) mg/dL AST (17-59) U/L Alkaline Phosphatase (38-126) U/L Total Protein (6.3-8.2) g/dL Albumin (3.5-5.0) g/dL Arterial Blood Potassium (3.4-4.5) mmol/L Arterial Blood Glucose (75-99) mg/dL Crossmatch 11/04/20 11/04/20 11/04/20 Range/Units 20:53 22:22 22:52 WBC (3.8-10.6) k/uL RBC (4.30-5.90) m/uL Hgb (13.0-17.5) gm/dL Hct (39.0-53.0) % MCV (80.0-100.0) fL MCH (25.0-35.0) pg RDW (11.5-15.5) % Plt Count (150-450) k/uL Neutrophils # (Manual) (1.3-7.7) k/uL Lymphocytes # (Manual) (1.0-4.8) k/uL Metamyelocytes # (Man) (0) k/uL Myelocytes # (Manual) (0) k/uL PT (9.0-12.0) sec INR (<1.2) APTT (22.0-30.0) sec Fibrinogen (200-500) mg/dL ABG pH (7.35-7.45) ABG pCO2 (35-45) mmHg ABG pO2 (83-108) mmHg ABG HCO3 (21-25) mmol/L ABG Total CO2 (19-24) mmol/L ABG O2 Saturation (94-97) % ABG Hematocrit (34.0-46.0) % ABG Potassium (3.4-4.5) mmol/L ABG Ionized Calcium (4.5-5.3) mg/dL ABG Glucose (75-99) mg/dL ABG Lactic Acid (0.5-1.6) mmol/L Hemoglobin (13.0-17.5) gm/dL Chloride (98-107) mmol/L BUN (9-20) mg/dL Creatinine (0.66-1.25) mg/dL Glucose (74-99) mg/dL POC Glucose (mg/dL) 133 H 132 H 120 H (75-99) mg/dL Calcium (8.4-10.2) mg/dL Ionized Calcium Jose Miguel (4.5-5.3) mg/dL Magnesium (1.6-2.3) mg/dL Total Bilirubin (0.2-1.3) mg/dL AST (17-59) U/L Alkaline Phosphatase (38-126) U/L Total Protein (6.3-8.2) g/dL Albumin (3.5-5.0) g/dL Arterial Blood Potassium (3.4-4.5) mmol/L Arterial Blood Glucose (75-99) mg/dL Crossmatch 11/04/20 11/05/20 11/05/20 Range/Units 23:25 00:07 01:14 WBC (3.8-10.6) k/uL RBC 2.42 L (4.30-5.90) m/uL Hgb 8.1 L (13.0-17.5) gm/dL Hct 23.7 L (39.0-53.0) % MCV (80.0-100.0) fL MCH (25.0-35.0) pg RDW 17.2 H (11.5-15.5) % Plt Count 82 L (150-450) k/uL Neutrophils # (Manual) 9.00 H (1.3-7.7) k/uL Lymphocytes # (Manual) 0.31 L (1.0-4.8) k/uL Metamyelocytes # (Man) (0) k/uL Myelocytes # (Manual) (0) k/uL PT (9.0-12.0) sec INR (<1.2) APTT (22.0-30.0) sec Fibrinogen (200-500) mg/dL ABG pH (7.35-7.45) ABG pCO2 (35-45) mmHg ABG pO2 (83-108) mmHg ABG HCO3 (21-25) mmol/L ABG Total CO2 (19-24) mmol/L ABG O2 Saturation (94-97) % ABG Hematocrit (34.0-46.0) % ABG Potassium (3.4-4.5) mmol/L ABG Ionized Calcium (4.5-5.3) mg/dL ABG Glucose (75-99) mg/dL ABG Lactic Acid (0.5-1.6) mmol/L Hemoglobin (13.0-17.5) gm/dL Chloride (98-107) mmol/L BUN (9-20) mg/dL Creatinine (0.66-1.25) mg/dL Glucose (74-99) mg/dL POC Glucose (mg/dL) 117 H 117 H (75-99) mg/dL Calcium (8.4-10.2) mg/dL Ionized Calcium Jose Miguel (4.5-5.3) mg/dL Magnesium (1.6-2.3) mg/dL Total Bilirubin (0.2-1.3) mg/dL AST (17-59) U/L Alkaline Phosphatase (38-126) U/L Total Protein (6.3-8.2) g/dL Albumin (3.5-5.0) g/dL Arterial Blood Potassium (3.4-4.5) mmol/L Arterial Blood Glucose (75-99) mg/dL Crossmatch 08/11/05/20 11/05/20 Range/Units 02:04 03:00 04:00 WBC (3.8-10.6) k/uL RBC 2.22 L (4.30-5.90) m/uL Hgb 7.5 L (13.0-17.5) gm/dL Hct 21.6 L (39.0-53.0) % MCV (80.0-100.0) fL MCH (25.0-35.0) pg RDW 17.7 H (11.5-15.5) % Plt Count 67 L (150-450) k/uL Neutrophils # (Manual) 8.60 H (1.3-7.7) k/uL Lymphocytes # (Manual) 0.48 L (1.0-4.8) k/uL Metamyelocytes # (Man) (0) k/uL Myelocytes # (Manual) (0) k/uL PT (9.0-12.0) sec INR (<1.2) APTT (22.0-30.0) sec Fibrinogen (200-500) mg/dL ABG pH (7.35-7.45) ABG pCO2 (35-45) mmHg ABG pO2 (83-108) mmHg ABG HCO3 (21-25) mmol/L ABG Total CO2 (19-24) mmol/L ABG O2 Saturation (94-97) % ABG Hematocrit (34.0-46.0) % ABG Potassium (3.4-4.5) mmol/L ABG Ionized Calcium (4.5-5.3) mg/dL ABG Glucose (75-99) mg/dL ABG Lactic Acid (0.5-1.6) mmol/L Hemoglobin (13.0-17.5) gm/dL Chloride (98-107) mmol/L BUN (9-20) mg/dL Creatinine (0.66-1.25) mg/dL Glucose (74-99) mg/dL POC Glucose (mg/dL) 118 H 116 H (75-99) mg/dL Calcium (8.4-10.2) mg/dL Ionized Calcium Jose Miguel (4.5-5.3) mg/dL Magnesium (1.6-2.3) mg/dL Total Bilirubin (0.2-1.3) mg/dL AST (17-59) U/L Alkaline Phosphatase (38-126) U/L Total Protein (6.3-8.2) g/dL Albumin (3.5-5.0) g/dL Arterial Blood Potassium (3.4-4.5) mmol/L Arterial Blood Glucose (75-99) mg/dL Crossmatch 11/05/20 11/05/20 11/05/20 Range/Units 04:00 04:04 05:05 WBC (3.8-10.6) k/uL RBC (4.30-5.90) m/uL Hgb (13.0-17.5) gm/dL Hct (39.0-53.0) % MCV (80.0-100.0) fL MCH (25.0-35.0) pg RDW (11.5-15.5) % Plt Count (150-450) k/uL Neutrophils # (Manual) (1.3-7.7) k/uL Lymphocytes # (Manual) (1.0-4.8) k/uL Metamyelocytes # (Man) (0) k/uL Myelocytes # (Manual) (0) k/uL PT (9.0-12.0) sec INR (<1.2) APTT (22.0-30.0) sec Fibrinogen (200-500) mg/dL ABG pH (7.35-7.45) ABG pCO2 (35-45) mmHg ABG pO2 (83-108) mmHg ABG HCO3 (21-25) mmol/L ABG Total CO2 (19-24) mmol/L ABG O2 Saturation (94-97) % ABG Hematocrit (34.0-46.0) % ABG Potassium (3.4-4.5) mmol/L ABG Ionized Calcium (4.5-5.3) mg/dL ABG Glucose (75-99) mg/dL ABG Lactic Acid (0.5-1.6) mmol/L Hemoglobin (13.0-17.5) gm/dL Chloride 110 H (98-107) mmol/L BUN (9-20) mg/dL Creatinine 0.63 L (0.66-1.25) mg/dL Glucose 105 H (74-99) mg/dL POC Glucose (mg/dL) 118 H 119 H (75-99) mg/dL Calcium 7.6 L (8.4-10.2) mg/dL Ionized Calcium Jose Miguel (4.5-5.3) mg/dL Magnesium (1.6-2.3) mg/dL Total Bilirubin 1.4 H (0.2-1.3) mg/dL AST 62 H (17-59) U/L Alkaline Phosphatase 26 L (38-126) U/L Total Protein 4.4 L (6.3-8.2) g/dL Albumin 2.6 L (3.5-5.0) g/dL Arterial Blood Potassium (3.4-4.5) mmol/L Arterial Blood Glucose (75-99) mg/dL Crossmatch 11/05/20 11/05/20 11/05/20 Range/Units 05:18 06:04 07:11 WBC (3.8-10.6) k/uL RBC (4.30-5.90) m/uL Hgb (13.0-17.5) gm/dL Hct (39.0-53.0) % MCV (80.0-100.0) fL MCH (25.0-35.0) pg RDW (11.5-15.5) % Plt Count (150-450) k/uL Neutrophils # (Manual) (1.3-7.7) k/uL Lymphocytes # (Manual) (1.0-4.8) k/uL Metamyelocytes # (Man) (0) k/uL Myelocytes # (Manual) (0) k/uL PT (9.0-12.0) sec INR (<1.2) APTT (22.0-30.0) sec Fibrinogen (200-500) mg/dL ABG pH (7.35-7.45) ABG pCO2 (35-45) mmHg ABG pO2 65 L (83-108) mmHg ABG HCO3 28 H 27 H (21-25) mmol/L ABG Total CO2 29 H 29 H (19-24) mmol/L ABG O2 Saturation 98.2 H (94-97) % ABG Hematocrit (34.0-46.0) % ABG Potassium (3.4-4.5) mmol/L ABG Ionized Calcium (4.5-5.3) mg/dL ABG Glucose (75-99) mg/dL ABG Lactic Acid (0.5-1.6) mmol/L Hemoglobin (13.0-17.5) gm/dL Chloride (98-107) mmol/L BUN (9-20) mg/dL Creatinine (0.66-1.25) mg/dL Glucose (74-99) mg/dL POC Glucose (mg/dL) 114 H (75-99) mg/dL Calcium (8.4-10.2) mg/dL Ionized Calcium Jose Miguel (4.5-5.3) mg/dL Magnesium (1.6-2.3) mg/dL Total Bilirubin (0.2-1.3) mg/dL AST (17-59) U/L Alkaline Phosphatase (38-126) U/L Total Protein (6.3-8.2) g/dL Albumin (3.5-5.0) g/dL Arterial Blood Potassium (3.4-4.5) mmol/L Arterial Blood Glucose (75-99) mg/dL Crossmatch 11/05/20 11/05/20 Range/Units 07:15 08:07 WBC (3.8-10.6) k/uL RBC (4.30-5.90) m/uL Hgb (13.0-17.5) gm/dL Hct (39.0-53.0) % MCV (80.0-100.0) fL MCH (25.0-35.0) pg RDW (11.5-15.5) % Plt Count (150-450) k/uL Neutrophils # (Manual) (1.3-7.7) k/uL Lymphocytes # (Manual) (1.0-4.8) k/uL Metamyelocytes # (Man) (0) k/uL Myelocytes # (Manual) (0) k/uL PT (9.0-12.0) sec INR (<1.2) APTT (22.0-30.0) sec Fibrinogen (200-500) mg/dL ABG pH (7.35-7.45) ABG pCO2 (35-45) mmHg ABG pO2 (83-108) mmHg ABG HCO3 (21-25) mmol/L ABG Total CO2 (19-24) mmol/L ABG O2 Saturation (94-97) % ABG Hematocrit (34.0-46.0) % ABG Potassium (3.4-4.5) mmol/L ABG Ionized Calcium (4.5-5.3) mg/dL ABG Glucose (75-99) mg/dL ABG Lactic Acid (0.5-1.6) mmol/L Hemoglobin (13.0-17.5) gm/dL Chloride (98-107) mmol/L BUN (9-20) mg/dL Creatinine (0.66-1.25) mg/dL Glucose (74-99) mg/dL POC Glucose (mg/dL) 115 H 116 H (75-99) mg/dL Calcium (8.4-10.2) mg/dL Ionized Calcium Jose Miguel (4.5-5.3) mg/dL Magnesium (1.6-2.3) mg/dL Total Bilirubin (0.2-1.3) mg/dL AST (17-59) U/L Alkaline Phosphatase (38-126) U/L Total Protein (6.3-8.2) g/dL Albumin (3.5-5.0) g/dL Arterial Blood Potassium (3.4-4.5) mmol/L Arterial Blood Glucose (75-99) mg/dL Crossmatch Assessment and Plan Plan: 1 multivessel coronary artery disease, symptomatic, post three-vessel bypass surgery with venous graft and aortic valve replacement. The patient is postop day #1. Patient is currently postop still intubated on mechanical ventilator. Hemodynamically stable.. The patient is currently off milrinone and he is off the nitroglycerin drip. Unable to wean him yesterday because of his limited oxygenation which is obviously improving with a ventilator adjustments done. Currently remains sedated. Nevertheless, he arouses and his neurologic exam is nonfocal. Chest x-ray was noted. No acute abnormalities seen. There is a right upper lobe pulmonary nodule that needs to be evaluated and treated a later stage. No pneumothorax. Chest tube is in place. No significant output from the chest tube. 2 acute hypoxic respiratory failure. The blood gas also showed a component of hypercapnic respiratory failure, acute. Necessary ventilator changes were done 3 coronary artery disease with previous stenting of the RCA 4 COPD 5 history of extensive right upper lobe pneumonia 6 history of right upper lobe pulmonary nodule identified on a CAT scan of the chest with an average PET scan obesity workup postop with a higher suspicious for malignancy based on the PET scan findings 7 hypertension 8 hyperlipidemia 9 degenerative arthritis. Plan Necessary ventilator changes were done Keep the PEEP at 10 and the wean down the FiO2 down to 50% and repeat a blood gas. His blood gases adequate, start weaning off the sedation. Monitor the blood gases Keep the patient sedated with propofol for now. off Primacor monitor the cardiac output Keep Slaughter-Magdaleno catheter in place and monitor the pulmonary artery pressures Chest x-ray is stable Keep insulin drip at 1.5 units an hour We'll continue to follow. In progress. I'm hoping to extubate the patient today and this will depend on his overall hemodynamic status and his oxygenation status. Critical care evaluation was on a more than 30 minutes. Time with Patient: Greater than 30
[2020-11-05 09:21] LABS: Glucose,Whole Blood 112 mg/dL (75-99)
[2020-11-05 09:26] LABS: ABG HCO3 27 mmol/L (21-25); ABG Oxygen Saturation 90.9 % (94-97); ABG PCO2 39 mmHg (35-45); ABG PH 7.45 (7.35-7.45); ABG TCO2 28 mmol/L (19-24)
[2020-11-05 09:28] LABS: ABG PO2 54 mmHg (83-108)
[2020-11-05] MEDS: MILRINONE-D5W PMX 20 MG in DEXTROSE/WATER 1 100ML.BAG IV SCH (09:41)
[2020-11-05 10:06] LABS: Glucose,Whole Blood 101 mg/dL (75-99)
[2020-11-05 10:50] LABS: Glucose,Whole Blood 122 mg/dL (75-99)
[2020-11-05 10:58] LABS: ABG Base Excess 3.1 mmol/L; ABG HCO3 27 mmol/L (21-25); ABG Oxygen Saturation 94.5 % (94-97); ABG PCO2 38 mmHg (35-45); ABG PH 7.46 (7.35-7.45); ABG PO2 63 mmHg (83-108); ABG TCO2 28 mmol/L (19-24)
[2020-11-05 11:04] LABS: Anisocytosis Slight; HCT 23.3 % (39.0-53.0); HGB 8.2 gm/dL (13.0-17.5); MCH 33.1 pg (25.0-35.0); MCHC 35.3 g/dL (31.0-37.0); MCV 93.9 fL (80.0-100.0); Macrocytosis Slight; Mean Platelet Volume 9.7; RBC 2.48 m/uL (4.30-5.90); WBC 10.9 k/uL (3.8-10.6)
[2020-11-05 11:07] LABS: Platelet Count 70 k/uL (150-450)
[2020-11-05] MEDS: METOPROLOL TARTRATE 12.5 MG TAB PO SCH ×2 (11:26→20:31)
[2020-11-05 12:05] LABS: Glucose,Whole Blood 109 mg/dL (75-99)
[2020-11-05] MEDS: LACTATED RINGERS 1,000 ML IV SCH (12:06)
--- NOTE | 2020-11-05 12:19 | P.PN ---
Subjective Progress Note Date: 11/05/20 Principal diagnosis: Severe triple vessel coronary artery disease, moderate to severe aortic valve stenosis, pulmonary hypertension and right upper lobe pulmonary nodule, suspicious for malignancy based on PET scan findings. Past medical history significant for hypertension, hyperlipidemia, right subclavian artery stenosis, coronary artery disease with previous stenting of the right coronary artery, history of right upper lobe pneumonia, COPD with preoperative FEV1 showing a predicted value of 66% and remote history of nicotine dependence in which she quit smoking around 25 years ago. POD #1 aortic valve replacement with a 27 mm [place] Inspiris bioprosthetic aortic valve, coronary artery bypass grafting 3 with a reverse saphenous vein graft off the aorta to the circumflex coronary artery, the left anterior descending coronary artery and the posterior descending coronary artery with bilateral lower extremity greater saphenous vein endoscopic harvesting. Clip ligation of the left atrial appendage with a 35 mm Atriclip, intraoperative transesophageal echocardiogram and graft flow measurement using the [employer] system. Postoperative acute blood loss anemia and thrombocytopenia, expected given hemodilution and cardiopulmonary bypass. The patient was seen in follow-up today 11/05/2020 at his bedside in the intensive care unit. Currently he is laying in bed, remains intubated, sedated with propofol drip at 30 mcg/kg/m and is in no apparent acute distress. Despite being sedated on propofol he is moving all 4 extremities appropriately with verbal stimuli. He remains hemodynamically stable and is currently on no inotropic or pressor support. Right IJ cordis and Lenox-Magdaleno catheter remains in place with current hemodynamic showing a cardiac output of 5.5, cardiac index 2.8, PA pressures 46/25 and a CVP pressure of 7 mmHg. Bedside telemetry is showing a DDD paced rhythm at 80 bpm, underlying rhythm is normal sinus rhythm with a right bundle branch block heart rate 73 BPM. Current mechanical ventilator settings are assist control 24, TV 450, FiO2 90% and a PEEP of 10. ABG results this morning show a pH of 7.44, pCO2 41, pO2 65, HCO3 28, oxygen saturation 94.5% and the base excess of 3.7. Mediastinal and left pleural chest tubes remain in place to low continuous wall suction -20 cm H2O. No air leak is present. Draining thin serosanguineous drainage. Espinal catheter remains in place for accurate I's and O's with 370 mL output in the last 8 hours. Laboratory results this morning show a WBC count 9.5, hemoglobin 7.5, hematocrit 21.6, platelet 67, sodium 140, potassium 3.6, BUN 11, creatinine 0.63 and glucose 105. Chest x-ray this morning continues to show a known right upper lobe pulmonary nodule, with adequate expansion of both lungs and no sizable pneumothorax present. RHINA drain remains in place to his left lower extremity wi th scant serosanguineous drainage. Objective - Vital Signs Vital signs: Vital Signs Temp 100.3 F H 11/05/20 08:23 Pulse 71 11/05/20 08:23 Resp 28 H 11/05/20 08:23 BP 93/39 11/05/20 08:23 Pulse Ox 95 11/05/20 08:23 Intake & Output 11/04/20 11/05/20 11/05/20 18:59 06:59 18:59 Intake Total 9167.541 6720.190 103.548 Output Total 5635 1460 70 Balance -3808.923 60.190 33.548 Weight 89 kg Intake: IV 52 730 70 CO/CI 180 20 Lactated Ringers 1,000 ml 550 50 @ 50 mls/hr IV .Q20H [facility] Rx#:[id number] Intake, IV Titration 578.077 376.190 33.548 Amount ACETAMINOPHEN IV (For NPO 100 ) 1,000 mg In Empty Bag 1 bag @ 400 mls/hr IVPB Q6HR [facility] Rx#:[id number] Calcium Gluconate 2 gm In 100 Sodium Chloride 0.9% 100 ml @ 100 mls/hr IVPB ONCE PRN Rx#:[id number] Insulin Regular 100 unit 6.725 9.376 In Sodium Chloride 0.9% 100 ml @ Per Protocol IV .Q0M [facility] Rx#:[id number] Lactated Ringers 1,000 ml 200 50 @ 50 mls/hr IV .Q20H [facility] Rx#:[id number] Milrinone-D5w Pmx 20 mg 19.88 34.558 In Dextrose/Water 1 100ml .bag @ 0.1 MCG/KG/MIN 2. 346 mls/hr IV .Q24H [facility] Rx#:[id number] Nitroglycerin-D5w Pmx 50 6.0 9.775 mg In Dextrose/Water 1 250ml.bag @ 5 MCG/MIN 1.5 mls/hr IV .Q24H [facility] Rx#: [id number] Norepinephrine 4 mg In 74.683 Sodium Chloride 0.9% 250 ml @ 0.05 MCG/KG/MIN 14. 897 mls/hr IV .Q17H4M [facility] Rx#:[id number] ceFAZolin 2 gm In Sodium 50 Chloride 0.9% 50 ml @ 100 mls/hr IVPB Q8HR [facility] Rx# :[id number] propofoL 1,000 mg In 100 59.5 16.1 ml @ Per Protocol IV ONCE ONE Rx#:[id number] propofoL 1,000 mg In 35.972 181.698 33.548 Empty Bag 1 bag @ Titrate IV .Q0M [facility] Rx#: [id number] Blood Product 1196 414 0 Ffp 24 Pher Acda Unit 215 [id number] Ffp 24 Pher Acda Unit 214 [id number] Ffp 24 Pher Acda Unit 221 [id number] Ffp 24 Pher Acda Cnt2 225 Unit [id number] Platelet Lv[place] [address] Unit [id number] Pooled Cryoprecipitate 0 104 Unit [id number] Rc As-1 Unit 0 [id number] Rc As-1 Unit 310 [id number] Rc As-1 Unit 0 [id number] Output: Chest Tube Drainage 815 480 30 Mediastinal 590 230 10 medistinal #1 225 250 20 Gastric Drainage 400 Drainage 60 20 Left Calf 60 20 Urine 1760 560 40 Estimated Blood Loss 3000 Other: Voiding Method Indwelling Catheter Indwelling Catheter ABP, PAP, CO, CI - Last Documented Arterial Blood Pressure 103/44 Pulmonary Artery Pressure 45/25 Cardiac Output 5.4 Cardiac Index 2.7 - Exam CONSTITUTIONAL: Lying in bed in the intensive care unit, remain sedated on propofol drip at 30 mcg/kg/m, appears comfortable, cooperative, no apparent acute distress. HEENT: Neck is supple, no JVD, no lymphadenopathy. Right IJ Cordis and Lenox- Magdaleno catheter in place and functioning. RESPIRATORY: Lungs sounds essentially clear throughout, diminished to his bilateral bases. Respirations are symmetrical and nonlabored with mechanical ventilator support. Current mechanical ventilator settings are as follows, assist-control 24, TV 450, FiO2 90% and a PEEP of 10. CARDIOVASCULAR: Regular rhythm and rate. S1 and S2 present, negative for S3, gallop or murmur. Sternum is stable. Palpable peripheral pulses bilaterally, no edema to his bilateral lower extremities. Heart hugger in place. Knee- high ELEONORA hose and sequential compression devices in place to his bilateral lower extremities. Bedside telemetry showing normal sinus rhythm with a right bundle branch block heart rate 73 bpm. GASTROINTESTINAL: Abdomen soft, nontender, nondistended. Hypoactive bowel sounds present 4 quadrants. No guarding or rigidity. OG tube in place to low intermittent wall suction. GENITOURINARY: Espinal present for accurate I&O, draining clear yellow urine. Output 370 mL in the last 8 hours. INTEGUMENTARY: Skin is warm and dry with no evidence of clubbing or cyanosis. Midline sternal incision clean dry and well approximated, covered with dry intact dressing. Bilateral lower extremity EVH sites well approximated without redness or drainage. NEUROLOGIC: Sedated on propofol drip at 30 mcg/kg/m. PERRLA. No focal deficits. MUSKULOSKELETAL: Able to move all extremities, generalized weakness. PSYCHIATRIC: Unable to accurately assess at this time as the patient remains sedated on propofol drip and remains intubated with mechanical ventilator support. INVASIVE LINES AND TUBES: Mediastinal/left pleural chest tubes present and connected to low continuous wall suction, no air leaks present. Mediastinal tube with 150 mL of thin serosanguineous drainage overnight, 850 mL output since surgery. Left/mediastinal pleural chest tubes with 140 mL of thin serosanguineous drainage overnight, 400 mL output since surgery. Atrial and ventricular epicardial pacemaker wires present, connected to bedside pacemaker generator, DDD mode with a heart rate at 80 BPM with good capture. Right internal jugular Lenox/Cordis, right radial arterial line present. Last CO 5.5, CI 2.8, PA 46/25 and CVP 7 mmHg. Left lower extremity RHINA drain in place with scant thin serosanguineous drainage, 20 mL output in the last 12 hours. - Labs CBC & Chem 7: 11/05/20 10:49 11/05/20 10:49 Labs: Abnormal Lab Results - Last 24 Hours (Table) 10/24/20 11/04/20 11/04/20 Range/Units 13:00 09:45 09:45 WBC (3.8-10.6) k/uL RBC (4.30-5.90) m/uL Hgb (13.0-17.5) gm/dL Hct (39.0-53.0) % MCV (80.0-100.0) fL MCH (25.0-35.0) pg RDW (11.5-15.5) % Plt Count (150-450) k/uL Neutrophils # (Manual) (1.3-7.7) k/uL Lymphocytes # (Manual) (1.0-4.8) k/uL Metamyelocytes # (Man) (0) k/uL Myelocytes # (Manual) (0) k/uL PT (9.0-12.0) sec INR (<1.2) APTT (22.0-30.0) sec Fibrinogen (200-500) mg/dL ABG pH 7.32 L 7.27 L (7.35-7.45) ABG pCO2 55 H 58 H (35-45) mmHg ABG pO2 148 H 151 H (83-108) mmHg ABG HCO3 29 H 27 H (21-25) mmol/L ABG Total CO2 30 H 28 H (19-24) mmol/L ABG O2 Saturation 99.0 H 98.9 H (94-97) % ABG Hematocrit 48 H (34.0-46.0) % ABG Potassium 4.6 H (3.4-4.5) mmol/L ABG Ionized Calcium (4.5-5.3) mg/dL ABG Glucose 126 H (75-99) mg/dL ABG Lactic Acid (0.5-1.6) mmol/L Hemoglobin (13.0-17.5) gm/dL Chloride (98-107) mmol/L BUN (9-20) mg/dL Creatinine (0.66-1.25) mg/dL Glucose (74-99) mg/dL POC Glucose (mg/dL) (75-99) mg/dL Calcium (8.4-10.2) mg/dL Ionized Calcium Jose Miguel (4.5-5.3) mg/dL Magnesium (1.6-2.3) mg/dL Total Bilirubin (0.2-1.3) mg/dL AST (17-59) U/L Alkaline Phosphatase (38-126) U/L Total Protein (6.3-8.2) g/dL Albumin (3.5-5.0) g/dL Arterial Blood Potassium 4.6 H (3.4-4.5) mmol/L Arterial Blood Glucose 126 H (75-99) mg/dL Crossmatch See Detail 11/04/20 11/04/20 11/04/20 Range/Units 10:26 10:55 11:20 WBC (3.8-10.6) k/uL RBC (4.30-5.90) m/uL Hgb (13.0-17.5) gm/dL Hct (39.0-53.0) % MCV (80.0-100.0) fL MCH (25.0-35.0) pg RDW (11.5-15.5) % Plt Count (150-450) k/uL Neutrophils # (Manual) (1.3-7.7) k/uL Lymphocytes # (Manual) (1.0-4.8) k/uL Metamyelocytes # (Man) (0) k/uL Myelocytes # (Manual) (0) k/uL PT (9.0-12.0) sec INR (<1.2) APTT (22.0-30.0) sec Fibrinogen (200-500) mg/dL ABG pH 7.24 L 7.32 L (7.35-7.45) ABG pCO2 61 H 50 H (35-45) mmHg ABG pO2 >420 H 320 H 319 H (83-108) mmHg ABG HCO3 26 H 26 H (21-25) mmol/L ABG Total CO2 28 H 27 H 27 H (19-24) mmol/L ABG O2 Saturation 100.0 H 100.0 H 100.0 H (94-97) % ABG Hematocrit 33 L 28 L 27 L (34.0-46.0) % ABG Potassium 5.8 H 4.9 H 4.8 H (3.4-4.5) mmol/L ABG Ionized Calcium 4.0 L 4.0 L 3.8 L (4.5-5.3) mg/dL ABG Glucose 136 H 102 H (75-99) mg/dL ABG Lactic Acid (0.5-1.6) mmol/L Hemoglobin 10.7 L 9.2 L 8.8 L (13.0-17.5) gm/dL Chloride (98-107) mmol/L BUN (9-20) mg/dL Creatinine (0.66-1.25) mg/dL Glucose (74-99) mg/dL POC Glucose (mg/dL) (75-99) mg/dL Calcium (8.4-10.2) mg/dL Ionized Calcium Jose Miguel (4.5-5.3) mg/dL Magnesium (1.6-2.3) mg/dL Total Bilirubin (0.2-1.3) mg/dL AST (17-59) U/L Alkaline Phosphatase (38-126) U/L Total Protein (6.3-8.2) g/dL Albumin (3.5-5.0) g/dL Arterial Blood Potassium 5.8 H 4.9 H 4.8 H (3.4-4.5) mmol/L Arterial Blood Glucose 136 H 102 H (75-99) mg/dL Crossmatch 11/04/20 11/04/20 11/04/20 Range/Units 11:51 12:16 13:18 WBC (3.8-10.6) k/uL RBC (4.30-5.90) m/uL Hgb (13.0-17.5) gm/dL Hct (39.0-53.0) % MCV (80.0-100.0) fL MCH (25.0-35.0) pg RDW (11.5-15.5) % Plt Count (150-450) k/uL Neutrophils # (Manual) (1.3-7.7) k/uL Lymphocytes # (Manual) (1.0-4.8) k/uL Metamyelocytes # (Man) (0) k/uL Myelocytes # (Manual) (0) k/uL PT (9.0-12.0) sec INR (<1.2) APTT (22.0-30.0) sec Fibrinogen (200-500) mg/dL ABG pH 7.46 H 7.22 L (7.35-7.45) ABG pCO2 56 H (35-45) mmHg ABG pO2 282 H 360 H 187 H (83-108) mmHg ABG HCO3 (21-25) mmol/L ABG Total CO2 26 H 26 H 25 H (19-24) mmol/L ABG O2 Saturation 100.0 H 100.0 H 99.6 H (94-97) % ABG Hematocrit 25 L 24 L 24 L (34.0-46.0) % ABG Potassium 4.6 H 4.6 H (3.4-4.5) mmol/L ABG Ionized Calcium 3.5 L* 3.6 L (4.5-5.3) mg/dL ABG Glucose 153 H (75-99) mg/dL ABG Lactic Acid 1.7 H 2.1 H 2.1 H (0.5-1.6) mmol/L Hemoglobin 8.1 L 7.9 L 7.8 L (13.0-17.5) gm/dL Chloride (98-107) mmol/L BUN (9-20) mg/dL Creatinine (0.66-1.25) mg/dL Glucose (74-99) mg/dL POC Glucose (mg/dL) (75-99) mg/dL Calcium (8.4-10.2) mg/dL Ionized Calcium Jose Miguel (4.5-5.3) mg/dL Magnesium (1.6-2.3) mg/dL Total Bilirubin (0.2-1.3) mg/dL AST (17-59) U/L Alkaline Phosphatase (38-126) U/L Total Protein (6.3-8.2) g/dL Albumin (3.5-5.0) g/dL Arterial Blood Potassium 4.6 H 4.6 H (3.4-4.5) mmol/L Arterial Blood Glucose 153 H (75-99) mg/dL Crossmatch 11/04/20 11/04/20 11/04/20 Range/Units 13:48 15:00 15:00 WBC 12.7 H (3.8-10.6) k/uL RBC 2.61 L (4.30-5.90) m/uL Hgb 9.4 L D (13.0-17.5) gm/dL Hct 27.7 L (39.0-53.0) % MCV 106.2 H (80.0-100.0) fL MCH 36.0 H (25.0-35.0) pg RDW (11.5-15.5) % Plt Count (150-450) k/uL Neutrophils # (Manual) 10.10 H (1.3-7.7) k/uL Lymphocytes # (Manual) (1.0-4.8) k/uL Metamyelocytes # (Man) 0.38 H (0) k/uL Myelocytes # (Manual) 0.13 H (0) k/uL PT 14.9 H (9.0-12.0) sec INR 1.5 H (<1.2) APTT 54.3 H (22.0-30.0) sec Fibrinogen (200-500) mg/dL ABG pH 7.23 L (7.35-7.45) ABG pCO2 60 H (35-45) mmHg ABG pO2 (83-108) mmHg ABG HCO3 (21-25) mmol/L ABG Total CO2 27 H (19-24) mmol/L ABG O2 Saturation (94-97) % ABG Hematocrit 29 L (34.0-46.0) % ABG Potassium (3.4-4.5) mmol/L ABG Ionized Calcium 4.1 L (4.5-5.3) mg/dL ABG Glucose 131 H (75-99) mg/dL ABG Lactic Acid (0.5-1.6) mmol/L Hemoglobin 9.6 L (13.0-17.5) gm/dL Chloride (98-107) mmol/L BUN (9-20) mg/dL Creatinine (0.66-1.25) mg/dL Glucose (74-99) mg/dL POC Glucose (mg/dL) (75-99) mg/dL Calcium (8.4-10.2) mg/dL Ionized Calcium Jose Miguel (4.5-5.3) mg/dL Magnesium (1.6-2.3) mg/dL Total Bilirubin (0.2-1.3) mg/dL AST (17-59) U/L Alkaline Phosphatase (38-126) U/L Total Protein (6.3-8.2) g/dL Albumin (3.5-5.0) g/dL Arterial Blood Potassium (3.4-4.5) mmol/L Arterial Blood Glucose 131 H (75-99) mg/dL Crossmatch 11/04/20 11/04/20 11/04/20 Range/Units 15:00 15:02 15:17 WBC (3.8-10.6) k/uL RBC (4.30-5.90) m/uL Hgb (13.0-17.5) gm/dL Hct (39.0-53.0) % MCV (80.0-100.0) fL MCH (25.0-35.0) pg RDW (11.5-15.5) % Plt Count (150-450) k/uL Neutrophils # (Manual) (1.3-7.7) k/uL Lymphocytes # (Manual) (1.0-4.8) k/uL Metamyelocytes # (Man) (0) k/uL Myelocytes # (Manual) (0) k/uL PT (9.0-12.0) sec INR (<1.2) APTT (22.0-30.0) sec Fibrinogen (200-500) mg/dL ABG pH 7.18 L* (7.35-7.45) ABG pCO2 73 H* (35-45) mmHg ABG pO2 72 L (83-108) mmHg ABG HCO3 27 H (21-25) mmol/L ABG Total CO2 29 H (19-24) mmol/L ABG O2 Saturation 90.0 L (94-97) % ABG Hematocrit (34.0-46.0) % ABG Potassium (3.4-4.5) mmol/L ABG Ionized Calcium (4.5-5.3) mg/dL ABG Glucose (75-99) mg/dL ABG Lactic Acid (0.5-1.6) mmol/L Hemoglobin (13.0-17.5) gm/dL Chloride 109 H (98-107) mmol/L BUN 7 L (9-20) mg/dL Creatinine 0.49 L (0.66-1.25) mg/dL Glucose 127 H (74-99) mg/dL POC Glucose (mg/dL) 149 H (75-99) mg/dL Calcium 7.1 L (8.4-10.2) mg/dL Ionized Calcium Jose Miguel 4.4 L (4.5-5.3) mg/dL Magnesium 2.5 H (1.6-2.3) mg/dL Total Bilirubin 2.0 H (0.2-1.3) mg/dL AST (17-59) U/L Alkaline Phosphatase 22 L (38-126) U/L Total Protein 4.4 L (6.3-8.2) g/dL Albumin 2.7 L (3.5-5.0) g/dL Arterial Blood Potassium (3.4-4.5) mmol/L Arterial Blood Glucose (75-99) mg/dL Crossmatch 11/04/20 11/04/20 11/04/20 Range/Units 15:39 16:16 17:08 WBC 11.1 H (3.8-10.6) k/uL RBC 1.89 L (4.30-5.90) m/uL Hgb 7.0 L D (13.0-17.5) gm/dL Hct 20.2 L (39.0-53.0) % MCV 106.8 H (80.0-100.0) fL MCH 37.3 H (25.0-35.0) pg RDW (11.5-15.5) % Plt Count 128 L (150-450) k/uL Neutrophils # (Manual) 9.10 H (1.3-7.7) k/uL Lymphocytes # (Manual) (1.0-4.8) k/uL Metamyelocytes # (Man) (0) k/uL Myelocytes # (Manual) (0) k/uL PT (9.0-12.0) sec INR (<1.2) APTT (22.0-30.0) sec Fibrinogen 130 L (200-500) mg/dL ABG pH (7.35-7.45) ABG pCO2 (35-45) mmHg ABG pO2 (83-108) mmHg ABG HCO3 (21-25) mmol/L ABG Total CO2 (19-24) mmol/L ABG O2 Saturation (94-97) % ABG Hematocrit (34.0-46.0) % ABG Potassium (3.4-4.5) mmol/L ABG Ionized Calcium (4.5-5.3) mg/dL ABG Glucose (75-99) mg/dL ABG Lactic Acid (0.5-1.6) mmol/L Hemoglobin (13.0-17.5) gm/dL Chloride (98-107) mmol/L BUN (9-20) mg/dL Creatinine (0.66-1.25) mg/dL Glucose (74-99) mg/dL POC Glucose (mg/dL) 179 H (75-99) mg/dL Calcium (8.4-10.2) mg/dL Ionized Calcium Jose Miguel (4.5-5.3) mg/dL Magnesium (1.6-2.3) mg/dL Total Bilirubin (0.2-1.3) mg/dL AST (17-59) U/L Alkaline Phosphatase (38-126) U/L Total Protein (6.3-8.2) g/dL Albumin (3.5-5.0) g/dL Arterial Blood Potassium (3.4-4.5) mmol/L Arterial Blood Glucose (75-99) mg/dL Crossmatch 11/04/20 11/04/20 11/04/20 Range/Units 17:11 18:14 19:05 WBC (3.8-10.6) k/uL RBC (4.30-5.90) m/uL Hgb (13.0-17.5) gm/dL Hct (39.0-53.0) % MCV (80.0-100.0) fL MCH (25.0-35.0) pg RDW (11.5-15.5) % Plt Count (150-450) k/uL Neutrophils # (Manual) (1.3-7.7) k/uL Lymphocytes # (Manual) (1.0-4.8) k/uL Metamyelocytes # (Man) (0) k/uL Myelocytes # (Manual) (0) k/uL PT (9.0-12.0) sec INR (<1.2) APTT (22.0-30.0) sec Fibrinogen (200-500) mg/dL ABG pH (7.35-7.45) ABG pCO2 (35-45) mmHg ABG pO2 (83-108) mmHg ABG HCO3 (21-25) mmol/L ABG Total CO2 (19-24) mmol/L ABG O2 Saturation (94-97) % ABG Hematocrit (34.0-46.0) % ABG Potassium (3.4-4.5) mmol/L ABG Ionized Calcium (4.5-5.3) mg/dL ABG Glucose (75-99) mg/dL ABG Lactic Acid (0.5-1.6) mmol/L Hemoglobin (13.0-17.5) gm/dL Chloride (98-107) mmol/L BUN (9-20) mg/dL Creatinine (0.66-1.25) mg/dL Glucose (74-99) mg/dL POC Glucose (mg/dL) 165 H 142 H 123 H (75-99) mg/dL Calcium (8.4-10.2) mg/dL Ionized Calcium Jose Miguel (4.5-5.3) mg/dL Magnesium (1.6-2.3) mg/dL Total Bilirubin (0.2-1.3) mg/dL AST (17-59) U/L Alkaline Phosphatase (38-126) U/L Total Protein (6.3-8.2) g/dL Albumin (3.5-5.0) g/dL Arterial Blood Potassium (3.4-4.5) mmol/L Arterial Blood Glucose (75-99) mg/dL Crossmatch 11/04/20 11/04/20 11/04/20 Range/Units 19:51 19:53 20:40 WBC (3.8-10.6) k/uL RBC 1.96 L (4.30-5.90) m/uL Hgb 7.1 L (13.0-17.5) gm/dL Hct 20.0 L (39.0-53.0) % MCV 102.1 H (80.0-100.0) fL MCH 36.1 H (25.0-35.0) pg RDW (11.5-15.5) % Plt Count 91 L (150-450) k/uL Neutrophils # (Manual) (1.3-7.7) k/uL Lymphocytes # (Manual) 0.33 L (1.0-4.8) k/uL Metamyelocytes # (Man) (0) k/uL Myelocytes # (Manual) (0) k/uL PT (9.0-12.0) sec INR (<1.2) APTT (22.0-30.0) sec Fibrinogen (200-500) mg/dL ABG pH (7.35-7.45) ABG pCO2 (35-45) mmHg ABG pO2 (83-108) mmHg ABG HCO3 27 H (21-25) mmol/L ABG Total CO2 28 H (19-24) mmol/L ABG O2 Saturation (94-97) % ABG Hematocrit (34.0-46.0) % ABG Potassium (3.4-4.5) mmol/L ABG Ionized Calcium (4.5-5.3) mg/dL ABG Glucose (75-99) mg/dL ABG Lactic Acid (0.5-1.6) mmol/L Hemoglobin (13.0-17.5) gm/dL Chloride (98-107) mmol/L BUN (9-20) mg/dL Creatinine (0.66-1.25) mg/dL Glucose (74-99) mg/dL POC Glucose (mg/dL) 127 H (75-99) mg/dL Calcium (8.4-10.2) mg/dL Ionized Calcium Jose Miguel (4.5-5.3) mg/dL Magnesium (1.6-2.3) mg/dL Total Bilirubin (0.2-1.3) mg/dL AST (17-59) U/L Alkaline Phosphatase (38-126) U/L Total Protein (6.3-8.2) g/dL Albumin (3.5-5.0) g/dL Arterial Blood Potassium (3.4-4.5) mmol/L Arterial Blood Glucose (75-99) mg/dL Crossmatch 11/04/20 11/04/20 11/04/20 Range/Units 20:53 22:22 22:52 WBC (3.8-10.6) k/uL RBC (4.30-5.90) m/uL Hgb (13.0-17.5) gm/dL Hct (39.0-53.0) % MCV (80.0-100.0) fL MCH (25.0-35.0) pg RDW (11.5-15.5) % Plt Count (150-450) k/uL Neutrophils # (Manual) (1.3-7.7) k/uL Lymphocytes # (Manual) (1.0-4.8) k/uL Metamyelocytes # (Man) (0) k/uL Myelocytes # (Manual) (0) k/uL PT (9.0-12.0) sec INR (<1.2) APTT (22.0-30.0) sec Fibrinogen (200-500) mg/dL ABG pH (7.35-7.45) ABG pCO2 (35-45) mmHg ABG pO2 (83-108) mmHg ABG HCO3 (21-25) mmol/L ABG Total CO2 (19-24) mmol/L ABG O2 Saturation (94-97) % ABG Hematocrit (34.0-46.0) % ABG Potassium (3.4-4.5) mmol/L ABG Ionized Calcium (4.5-5.3) mg/dL ABG Glucose (75-99) mg/dL ABG Lactic Acid (0.5-1.6) mmol/L Hemoglobin (13.0-17.5) gm/dL Chloride (98-107) mmol/L BUN (9-20) mg/dL Creatinine (0.66-1.25) mg/dL Glucose (74-99) mg/dL POC Glucose (mg/dL) 133 H 132 H 120 H (75-99) mg/dL Calcium (8.4-10.2) mg/dL Ionized Calcium Jose Miguel (4.5-5.3) mg/dL Magnesium (1.6-2.3) mg/dL Total Bilirubin (0.2-1.3) mg/dL AST (17-59) U/L Alkaline Phosphatase (38-126) U/L Total Protein (6.3-8.2) g/dL Albumin (3.5-5.0) g/dL Arterial Blood Potassium (3.4-4.5) mmol/L Arterial Blood Glucose (75-99) mg/dL Crossmatch 11/04/20 11/05/20 11/05/20 Range/Units 23:25 00:07 01:14 WBC (3.8-10.6) k/uL RBC 2.42 L (4.30-5.90) m/uL Hgb 8.1 L (13.0-17.5) gm/dL Hct 23.7 L (39.0-53.0) % MCV (80.0-100.0) fL MCH (25.0-35.0) pg RDW 17.2 H (11.5-15.5) % Plt Count 82 L (150-450) k/uL Neutrophils # (Manual) 9.00 H (1.3-7.7) k/uL Lymphocytes # (Manual) 0.31 L (1.0-4.8) k/uL Metamyelocytes # (Man) (0) k/uL Myelocytes # (Manual) (0) k/uL PT (9.0-12.0) sec INR (<1.2) APTT (22.0-30.0) sec Fibrinogen (200-500) mg/dL ABG pH (7.35-7.45) ABG pCO2 (35-45) mmHg ABG pO2 (83-108) mmHg ABG HCO3 (21-25) mmol/L ABG Total CO2 (19-24) mmol/L ABG O2 Saturation (94-97) % ABG Hematocrit (34.0-46.0) % ABG Potassium (3.4-4.5) mmol/L ABG Ionized Calcium (4.5-5.3) mg/dL ABG Glucose (75-99) mg/dL ABG Lactic Acid (0.5-1.6) mmol/L Hemoglobin (13.0-17.5) gm/dL Chloride (98-107) mmol/L BUN (9-20) mg/dL Creatinine (0.66-1.25) mg/dL Glucose (74-99) mg/dL POC Glucose (mg/dL) 117 H 117 H (75-99) mg/dL Calcium (8.4-10.2) mg/dL Ionized Calcium Jose Miguel (4.5-5.3) mg/dL Magnesium (1.6-2.3) mg/dL Total Bilirubin (0.2-1.3) mg/dL AST (17-59) U/L Alkaline Phosphatase (38-126) U/L Total Protein (6.3-8.2) g/dL Albumin (3.5-5.0) g/dL Arterial Blood Potassium (3.4-4.5) mmol/L Arterial Blood Glucose (75-99) mg/dL Crossmatch 11/05/20 11/05/20 11/05/20 Range/Units 02:04 03:00 04:00 WBC (3.8-10.6) k/uL RBC 2.22 L (4.30-5.90) m/uL Hgb 7.5 L (13.0-17.5) gm/dL Hct 21.6 L (39.0-53.0) % MCV (80.0-100.0) fL MCH (25.0-35.0) pg RDW 17.7 H (11.5-15.5) % Plt Count 67 L (150-450) k/uL Neutrophils # (Manual) 8.60 H (1.3-7.7) k/uL Lymphocytes # (Manual) 0.48 L (1.0-4.8) k/uL Metamyelocytes # (Man) (0) k/uL Myelocytes # (Manual) (0) k/uL PT (9.0-12.0) sec INR (<1.2) APTT (22.0-30.0) sec Fibrinogen (200-500) mg/dL ABG pH (7.35-7.45) ABG pCO2 (35-45) mmHg ABG pO2 (83-108) mmHg ABG HCO3 (21-25) mmol/L ABG Total CO2 (19-24) mmol/L ABG O2 Saturation (94-97) % ABG Hematocrit (34.0-46.0) % ABG Potassium (3.4-4.5) mmol/L ABG Ionized Calcium (4.5-5.3) mg/dL ABG Glucose (75-99) mg/dL ABG Lactic Acid (0.5-1.6) mmol/L Hemoglobin (13.0-17.5) gm/dL Chloride (98-107) mmol/L BUN (9-20) mg/dL Creatinine (0.66-1.25) mg/dL Glucose (74-99) mg/dL POC Glucose (mg/dL) 118 H 116 H (75-99) mg/dL Calcium (8.4-10.2) mg/dL Ionized Calcium Jose Miguel (4.5-5.3) mg/dL Magnesium (1.6-2.3) mg/dL Total Bilirubin (0.2-1.3) mg/dL AST (17-59) U/L Alkaline Phosphatase (38-126) U/L Total Protein (6.3-8.2) g/dL Albumin (3.5-5.0) g/dL Arterial Blood Potassium (3.4-4.5) mmol/L Arterial Blood Glucose (75-99) mg/dL Crossmatch 11/05/20 11/05/20 11/05/20 Range/Units 04:00 04:04 05:05 WBC (3.8-10.6) k/uL RBC (4.30-5.90) m/uL Hgb (13.0-17.5) gm/dL Hct (39.0-53.0) % MCV (80.0-100.0) fL MCH (25.0-35.0) pg RDW (11.5-15.5) % Plt Count (150-450) k/uL Neutrophils # (Manual) (1.3-7.7) k/uL Lymphocytes # (Manual) (1.0-4.8) k/uL Metamyelocytes # (Man) (0) k/uL Myelocytes # (Manual) (0) k/uL PT (9.0-12.0) sec INR (<1.2) APTT (22.0-30.0) sec Fibrinogen (200-500) mg/dL ABG pH (7.35-7.45) ABG pCO2 (35-45) mmHg ABG pO2 (83-108) mmHg ABG HCO3 (21-25) mmol/L ABG Total CO2 (19-24) mmol/L ABG O2 Saturation (94-97) % ABG Hematocrit (34.0-46.0) % ABG Potassium (3.4-4.5) mmol/L ABG Ionized Calcium (4.5-5.3) mg/dL ABG Glucose (75-99) mg/dL ABG Lactic Acid (0.5-1.6) mmol/L Hemoglobin (13.0-17.5) gm/dL Chloride 110 H (98-107) mmol/L BUN (9-20) mg/dL Creatinine 0.63 L (0.66-1.25) mg/dL Glucose 105 H (74-99) mg/dL POC Glucose (mg/dL) 118 H 119 H (75-99) mg/dL Calcium 7.6 L (8.4-10.2) mg/dL Ionized Calcium Jose Miguel (4.5-5.3) mg/dL Magnesium (1.6-2.3) mg/dL Total Bilirubin 1.4 H (0.2-1.3) mg/dL AST 62 H (17-59) U/L Alkaline Phosphatase 26 L (38-126) U/L Total Protein 4.4 L (6.3-8.2) g/dL Albumin 2.6 L (3.5-5.0) g/dL Arterial Blood Potassium (3.4-4.5) mmol/L Arterial Blood Glucose (75-99) mg/dL Crossmatch 11/05/20 11/05/20 11/05/20 Range/Units 05:18 06:04 07:11 WBC (3.8-10.6) k/uL RBC (4.30-5.90) m/uL Hgb (13.0-17.5) gm/dL Hct (39.0-53.0) % MCV (80.0-100.0) fL MCH (25.0-35.0) pg RDW (11.5-15.5) % Plt Count (150-450) k/uL Neutrophils # (Manual) (1.3-7.7) k/uL Lymphocytes # (Manual) (1.0-4.8) k/uL Metamyelocytes # (Man) (0) k/uL Myelocytes # (Manual) (0) k/uL PT (9.0-12.0) sec INR (<1.2) APTT (22.0-30.0) sec Fibrinogen (200-500) mg/dL ABG pH (7.35-7.45) ABG pCO2 (35-45) mmHg ABG pO2 65 L (83-108) mmHg ABG HCO3 28 H 27 H (21-25) mmol/L ABG Total CO2 29 H 29 H (19-24) mmol/L ABG O2 Saturation 98.2 H (94-97) % ABG Hematocrit (34.0-46.0) % ABG Potassium (3.4-4.5) mmol/L ABG Ionized Calcium (4.5-5.3) mg/dL ABG Glucose (75-99) mg/dL ABG Lactic Acid (0.5-1.6) mmol/L Hemoglobin (13.0-17.5) gm/dL Chloride (98-107) mmol/L BUN (9-20) mg/dL Creatinine (0.66-1.25) mg/dL Glucose (74-99) mg/dL POC Glucose (mg/dL) 114 H (75-99) mg/dL Calcium (8.4-10.2) mg/dL Ionized Calcium Jose Miguel (4.5-5.3) mg/dL Magnesium (1.6-2.3) mg/dL Total Bilirubin (0.2-1.3) mg/dL AST (17-59) U/L Alkaline Phosphatase (38-126) U/L Total Protein (6.3-8.2) g/dL Albumin (3.5-5.0) g/dL Arterial Blood Potassium (3.4-4.5) mmol/L Arterial Blood Glucose (75-99) mg/dL Crossmatch 11/05/20 11/05/20 Range/Units 07:15 08:07 WBC (3.8-10.6) k/uL RBC (4.30-5.90) m/uL Hgb (13.0-17.5) gm/dL Hct (39.0-53.0) % MCV (80.0-100.0) fL MCH (25.0-35.0) pg RDW (11.5-15.5) % Plt Count (150-450) k/uL Neutrophils # (Manual) (1.3-7.7) k/uL Lymphocytes # (Manual) (1.0-4.8) k/uL Metamyelocytes # (Man) (0) k/uL Myelocytes # (Manual) (0) k/uL PT (9.0-12.0) sec INR (<1.2) APTT (22.0-30.0) sec Fibrinogen (200-500) mg/dL ABG pH (7.35-7.45) ABG pCO2 (35-45) mmHg ABG pO2 (83-108) mmHg ABG HCO3 (21-25) mmol/L ABG Total CO2 (19-24) mmol/L ABG O2 Saturation (94-97) % ABG Hematocrit (34.0-46.0) % ABG Potassium (3.4-4.5) mmol/L ABG Ionized Calcium (4.5-5.3) mg/dL ABG Glucose (75-99) mg/dL ABG Lactic Acid (0.5-1.6) mmol/L Hemoglobin (13.0-17.5) gm/dL Chloride (98-107) mmol/L BUN (9-20) mg/dL Creatinine (0.66-1.25) mg/dL Glucose (74-99) mg/dL POC Glucose (mg/dL) 115 H 116 H (75-99) mg/dL Calcium (8.4-10.2) mg/dL Ionized Calcium Jose Miguel (4.5-5.3) mg/dL Magnesium (1.6-2.3) mg/dL Total Bilirubin (0.2-1.3) mg/dL AST (17-59) U/L Alkaline Phosphatase (38-126) U/L Total Protein (6.3-8.2) g/dL Albumin (3.5-5.0) g/dL Arterial Blood Potassium (3.4-4.5) mmol/L Arterial Blood Glucose (75-99) mg/dL Crossmatch Assessment and Plan Assessment: 1. Severe triple-vessel coronary artery disease, status post three-vessel coronary artery bypass grafting surgery 2. Moderate to severe aortic valve stenosis, status post aortic valve replacement with a #27 mm [place] Inspiris bioprosthetic aortic valve 3. Pulmonary hypertension 4. Known right upper lobe pulmonary nodule, suspicious for malignancy based on PET scan findings 5. COPD with a preoperative FEV1 66% of predicted value 6. Known right subclavian artery stenosis 7. History of Hypertension 8. Hyperlipidemia 9. History of coronary artery disease with previous stenting of the right coronary artery 10. Remote history of extensive right upper lobe pneumonia with previous wedge biopsy in 2009 11. Remote history of nicotine dependence, quit smoking over 25 years ago 12. Postoperative anemia and thrombocytopenia, expected given hemodilution and cardiopulmonary bypass Plan: 1. Continue to optimize medical management with aspirin, statin, zetia, and beta paul. Will increase beta paul as tolerated. 2. Transfuse 1 unit of packed red blood cells for hemoglobin of 7.5. 3. Wean to extubate with ventilator management, Solu-Medrol and bronchodilators management per Dr. Espino's recommendations. Continue to monitor ABGs. 4. Once extubated Will encourage incentive spirometry use 10 times every hour while awake , increase activity as tolerated with PT/OT/cardiac rehab consulted. 5. Will monitor daily labs and chest x-rays. Electrolyte replacement per protocol. 6. Pain control with current medication regimen. 7. GI/DVT prophylaxis. discontinue heparin subcu as his platelets are 67 today. HIT panel has been sent. 8. Insulin management per primary care service. The patient is not diabetic with preoperative hemoglobin A1c 5.4%, needs tight blood sugar control to promote sternal union and prevent infection 9. Continue mediastinal and left pleural chest tubes for another 24 hours. 10. Continue Espinal catheter for another 24 hours for strict accurate intake and output. Continue to monitor daily weights. 11. Keep right IJ cordis and Lenox-Magdaleno catheter in place for hemodynamic monitoring. 12. Wean propofol as tolerated for mechanical ventilator weaning. 13. Place epicardial pacemaker generator to a VVI backup of 50 BPM. 14. Calcium gluconate 1 g 1 now IV piggyback. 15. More recommendations to follow based on patient's clinical course. Time with Patient: Greater than 30
[2020-11-05] MEDS ORDERED: CALCIUM GLUCONATE 1 GM in SODIUM CHLORIDE 0.9% 100 ML IVPB ONE (12:30)
--- NOTE | 2020-11-05 12:38 | P.PN ---
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 Coronary artery bypass grafting ms 3 Clip ligation of the left atrial appendage Postoperative blood loss with anemia and thrombocytopenia Suggest Continue supportive care at this time once patient is extubated and hemoglobin and some cytopenia improve cardiac medications will be re-introduced Objective - Vital Signs Vital signs: Vital Signs Temp 100.2 F H 11/05/20 12:00 Pulse 69 11/05/20 12:00 Resp 13 11/05/20 12:00 BP 108/44 11/05/20 10:38 Pulse Ox 93 L 11/05/20 12:00 Intake & Output 11/04/20 11/05/20 11/05/20 18:59 06:59 18:59 Intake Total 7490.230 4972.190 1071.024 Output Total 5635 1460 335 Balance -3808.923 60.190 736.024 Weight 89 kg Intake: IV 52 730 360 CO/CI 180 60 Lactated Ringers 1,000 ml 550 300 @ 50 mls/hr IV .Q20H [facility] Rx#:[id number] Intake, IV Titration 578.077 376.190 91.024 Amount ACETAMINOPHEN IV (For NPO 100 ) 1,000 mg In Empty Bag 1 bag @ 400 mls/hr IVPB Q6HR [facility] Rx#:[id number] Calcium Gluconate 2 gm In 100 Sodium Chloride 0.9% 100 ml @ 100 mls/hr IVPB ONCE PRN Rx#:[id number] Insulin Regular 100 unit 6.725 9.376 In Sodium Chloride 0.9% 100 ml @ Per Protocol IV .Q0M [facility] Rx#:[id number] Lactated Ringers 1,000 ml 200 50 @ 50 mls/hr IV .Q20H [facility] Rx#:[id number] Milrinone-D5w Pmx 20 mg 19.88 34.558 In Dextrose/Water 1 100ml .bag @ 0.1 MCG/KG/MIN 2. 346 mls/hr IV .Q24H [facility] Rx#:[id number] Nitroglycerin-D5w Pmx 50 6.0 9.775 mg In Dextrose/Water 1 250ml.bag @ 5 MCG/MIN 1.5 mls/hr IV .Q24H [facility] Rx#: [id number] Norepinephrine 4 mg In 74.683 Sodium Chloride 0.9% 250 ml @ 0.05 MCG/KG/MIN 14. 897 mls/hr IV .Q17H4M [facility] Rx#:[id number] ceFAZolin 2 gm In Sodium 50 50 Chloride 0.9% 50 ml @ 100 mls/hr IVPB Q8HR [facility] Rx# :[id number] propofoL 1,000 mg In 100 59.5 16.1 ml @ Per Protocol IV ONCE ONE Rx#:[id number] propofoL 1,000 mg In 35.972 181.698 41.024 Empty Bag 1 bag @ Titrate IV .Q0M [facility] Rx#: [id number] Blood Product 1196 414 620 Ffp 24 Pher [address]da Unit 215 [id number] Ffp 24 Pher [address]da Unit 214 [id number] Ffp 24 Pher Acda Unit 221 [id number] Ffp 24 Pher Acda Cnt2 225 Unit [id number] Platelet Lvds Acda Pas [address] Unit [id number] Pooled Cryoprecipitate 0 104 Unit [id number] Rc As-1 Unit 0 [id number] Rc As-1 Unit 310 [id number] Rc As-1 Unit 310 [id number] Output: Chest Tube Drainage 815 480 140 Mediastinal 590 230 50 medistinal #1 225 250 90 Gastric Drainage 400 Drainage 60 20 Left Calf 60 20 Urine 1760 560 195 Estimated Blood Loss 3000 Other: Voiding Method Indwelling Catheter Indwelling Catheter Indwelling Catheter ABP, PAP, CO, CI - Last Documented Arterial Blood Pressure 109/44 Pulmonary Artery Pressure 49/23 Cardiac Output 6.8 Cardiac Index 3.4 - Labs CBC & Chem 7: 11/05/20 10:49 11/05/20 10:49 Labs: Abnormal Lab Results - Last 24 Hours (Table) 10/24/20 11/04/20 11/04/20 Range/Units 13:00 09:45 09:45 WBC (3.8-10.6) k/uL RBC (4.30-5.90) m/uL Hgb (13.0-17.5) gm/dL Hct (39.0-53.0) % MCV (80.0-100.0) fL MCH (25.0-35.0) pg RDW (11.5-15.5) % Plt Count (150-450) k/uL Neutrophils # (Manual) (1.3-7.7) k/uL Lymphocytes # (Manual) (1.0-4.8) k/uL Metamyelocytes # (Man) (0) k/uL Myelocytes # (Manual) (0) k/uL PT (9.0-12.0) sec INR (<1.2) APTT (22.0-30.0) sec Fibrinogen (200-500) mg/dL ABG pH 7.32 L 7.27 L (7.35-7.45) ABG pCO2 55 H 58 H (35-45) mmHg ABG pO2 148 H 151 H (83-108) mmHg ABG HCO3 29 H 27 H (21-25) mmol/L ABG Total CO2 30 H 28 H (19-24) mmol/L ABG O2 Saturation 99.0 H 98.9 H (94-97) % ABG Hematocrit 48 H (34.0-46.0) % ABG Potassium 4.6 H (3.4-4.5) mmol/L ABG Ionized Calcium (4.5-5.3) mg/dL ABG Glucose 126 H (75-99) mg/dL ABG Lactic Acid (0.5-1.6) mmol/L Hemoglobin (13.0-17.5) gm/dL Chloride (98-107) mmol/L BUN (9-20) mg/dL Creatinine (0.66-1.25) mg/dL Glucose (74-99) mg/dL POC Glucose (mg/dL) (75-99) mg/dL Calcium (8.4-10.2) mg/dL Ionized Calcium Jose Miguel (4.5-5.3) mg/dL Magnesium (1.6-2.3) mg/dL Total Bilirubin (0.2-1.3) mg/dL AST (17-59) U/L Alkaline Phosphatase (38-126) U/L Total Protein (6.3-8.2) g/dL Albumin (3.5-5.0) g/dL Arterial Blood Potassium 4.6 H (3.4-4.5) mmol/L Arterial Blood Glucose 126 H (75-99) mg/dL Crossmatch See Detail 11/04/20 11/04/20 11/04/20 Range/Units 10:26 10:55 11:20 WBC (3.8-10.6) k/uL RBC (4.30-5.90) m/uL Hgb (13.0-17.5) gm/dL Hct (39.0-53.0) % MCV (80.0-100.0) fL MCH (25.0-35.0) pg RDW (11.5-15.5) % Plt Count (150-450) k/uL Neutrophils # (Manual) (1.3-7.7) k/uL Lymphocytes # (Manual) (1.0-4.8) k/uL Metamyelocytes # (Man) (0) k/uL Myelocytes # (Manual) (0) k/uL PT (9.0-12.0) sec INR (<1.2) APTT (22.0-30.0) sec Fibrinogen (200-500) mg/dL ABG pH 7.24 L 7.32 L (7.35-7.45) ABG pCO2 61 H 50 H (35-45) mmHg ABG pO2 >420 H 320 H 319 H (83-108) mmHg ABG HCO3 26 H 26 H (21-25) mmol/L ABG Total CO2 28 H 27 H 27 H (19-24) mmol/L ABG O2 Saturation 100.0 H 100.0 H 100.0 H (94-97) % ABG Hematocrit 33 L 28 L 27 L (34.0-46.0) % ABG Potassium 5.8 H 4.9 H 4.8 H (3.4-4.5) mmol/L ABG Ionized Calcium 4.0 L 4.0 L 3.8 L (4.5-5.3) mg/dL ABG Glucose 136 H 102 H (75-99) mg/dL ABG Lactic Acid (0.5-1.6) mmol/L Hemoglobin 10.7 L 9.2 L 8.8 L (13.0-17.5) gm/dL Chloride (98-107) mmol/L BUN (9-20) mg/dL Creatinine (0.66-1.25) mg/dL Glucose (74-99) mg/dL POC Glucose (mg/dL) (75-99) mg/dL Calcium (8.4-10.2) mg/dL Ionized Calcium Jose Miguel (4.5-5.3) mg/dL Magnesium (1.6-2.3) mg/dL Total Bilirubin (0.2-1.3) mg/dL AST (17-59) U/L Alkaline Phosphatase (38-126) U/L Total Protein (6.3-8.2) g/dL Albumin (3.5-5.0) g/dL Arterial Blood Potassium 5.8 H 4.9 H 4.8 H (3.4-4.5) mmol/L Arterial Blood Glucose 136 H 102 H (75-99) mg/dL Crossmatch 11/04/20 11/04/20 11/04/20 Range/Units 11:51 12:16 13:18 WBC (3.8-10.6) k/uL RBC (4.30-5.90) m/uL Hgb (13.0-17.5) gm/dL Hct (39.0-53.0) % MCV (80.0-100.0) fL MCH (25.0-35.0) pg RDW (11.5-15.5) % Plt Count (150-450) k/uL Neutrophils # (Manual) (1.3-7.7) k/uL Lymphocytes # (Manual) (1.0-4.8) k/uL Metamyelocytes # (Man) (0) k/uL Myelocytes # (Manual) (0) k/uL PT (9.0-12.0) sec INR (<1.2) APTT (22.0-30.0) sec Fibrinogen (200-500) mg/dL ABG pH 7.46 H 7.22 L (7.35-7.45) ABG pCO2 56 H (35-45) mmHg ABG pO2 282 H 360 H 187 H (83-108) mmHg ABG HCO3 (21-25) mmol/L ABG Total CO2 26 H 26 H 25 H (19-24) mmol/L ABG O2 Saturation 100.0 H 100.0 H 99.6 H (94-97) % ABG Hematocrit 25 L 24 L 24 L (34.0-46.0) % ABG Potassium 4.6 H 4.6 H (3.4-4.5) mmol/L ABG Ionized Calcium 3.5 L* 3.6 L (4.5-5.3) mg/dL ABG Glucose 153 H (75-99) mg/dL ABG Lactic Acid 1.7 H 2.1 H 2.1 H (0.5-1.6) mmol/L Hemoglobin 8.1 L 7.9 L 7.8 L (13.0-17.5) gm/dL Chloride (98-107) mmol/L BUN (9-20) mg/dL Creatinine (0.66-1.25) mg/dL Glucose (74-99) mg/dL POC Glucose (mg/dL) (75-99) mg/dL Calcium (8.4-10.2) mg/dL Ionized Calcium Jose Miguel (4.5-5.3) mg/dL Magnesium (1.6-2.3) mg/dL Total Bilirubin (0.2-1.3) mg/dL AST (17-59) U/L Alkaline Phosphatase (38-126) U/L Total Protein (6.3-8.2) g/dL Albumin (3.5-5.0) g/dL Arterial Blood Potassium 4.6 H 4.6 H (3.4-4.5) mmol/L Arterial Blood Glucose 153 H (75-99) mg/dL Crossmatch 11/04/20 11/04/20 11/04/20 Range/Units 13:48 15:00 15:00 WBC 12.7 H (3.8-10.6) k/uL RBC 2.61 L (4.30-5.90) m/uL Hgb 9.4 L D (13.0-17.5) gm/dL Hct 27.7 L (39.0-53.0) % MCV 106.2 H (80.0-100.0) fL MCH 36.0 H (25.0-35.0) pg RDW (11.5-15.5) % Plt Count (150-450) k/uL Neutrophils # (Manual) 10.10 H (1.3-7.7) k/uL Lymphocytes # (Manual) (1.0-4.8) k/uL Metamyelocytes # (Man) 0.38 H (0) k/uL Myelocytes # (Manual) 0.13 H (0) k/uL PT 14.9 H (9.0-12.0) sec INR 1.5 H (<1.2) APTT 54.3 H (22.0-30.0) sec Fibrinogen (200-500) mg/dL ABG pH 7.23 L (7.35-7.45) ABG pCO2 60 H (35-45) mmHg ABG pO2 (83-108) mmHg ABG HCO3 (21-25) mmol/L ABG Total CO2 27 H (19-24) mmol/L ABG O2 Saturation (94-97) % ABG Hematocrit 29 L (34.0-46.0) % ABG Potassium (3.4-4.5) mmol/L ABG Ionized Calcium 4.1 L (4.5-5.3) mg/dL ABG Glucose 131 H (75-99) mg/dL ABG Lactic Acid (0.5-1.6) mmol/L Hemoglobin 9.6 L (13.0-17.5) gm/dL Chloride (98-107) mmol/L BUN (9-20) mg/dL Creatinine (0.66-1.25) mg/dL Glucose (74-99) mg/dL POC Glucose (mg/dL) (75-99) mg/dL Calcium (8.4-10.2) mg/dL Ionized Calcium Jose Miguel (4.5-5.3) mg/dL Magnesium (1.6-2.3) mg/dL Total Bilirubin (0.2-1.3) mg/dL AST (17-59) U/L Alkaline Phosphatase (38-126) U/L Total Protein (6.3-8.2) g/dL Albumin (3.5-5.0) g/dL Arterial Blood Potassium (3.4-4.5) mmol/L Arterial Blood Glucose 131 H (75-99) mg/dL Crossmatch 11/04/20 11/04/20 11/04/20 Range/Units 15:00 15:02 15:17 WBC (3.8-10.6) k/uL RBC (4.30-5.90) m/uL Hgb (13.0-17.5) gm/dL Hct (39.0-53.0) % MCV (80.0-100.0) fL MCH (25.0-35.0) pg RDW (11.5-15.5) % Plt Count (150-450) k/uL Neutrophils # (Manual) (1.3-7.7) k/uL Lymphocytes # (Manual) (1.0-4.8) k/uL Metamyelocytes # (Man) (0) k/uL Myelocytes # (Manual) (0) k/uL PT (9.0-12.0) sec INR (<1.2) APTT (22.0-30.0) sec Fibrinogen (200-500) mg/dL ABG pH 7.18 L* (7.35-7.45) ABG pCO2 73 H* (35-45) mmHg ABG pO2 72 L (83-108) mmHg ABG HCO3 27 H (21-25) mmol/L ABG Total CO2 29 H (19-24) mmol/L ABG O2 Saturation 90.0 L (94-97) % ABG Hematocrit (34.0-46.0) % ABG Potassium (3.4-4.5) mmol/L ABG Ionized Calcium (4.5-5.3) mg/dL ABG Glucose (75-99) mg/dL ABG Lactic Acid (0.5-1.6) mmol/L Hemoglobin (13.0-17.5) gm/dL Chloride 109 H (98-107) mmol/L BUN 7 L (9-20) mg/dL Creatinine 0.49 L (0.66-1.25) mg/dL Glucose 127 H (74-99) mg/dL POC Glucose (mg/dL) 149 H (75-99) mg/dL Calcium 7.1 L (8.4-10.2) mg/dL Ionized Calcium Jose Miguel 4.4 L (4.5-5.3) mg/dL Magnesium 2.5 H (1.6-2.3) mg/dL Total Bilirubin 2.0 H (0.2-1.3) mg/dL AST (17-59) U/L Alkaline Phosphatase 22 L (38-126) U/L Total Protein 4.4 L (6.3-8.2) g/dL Albumin 2.7 L (3.5-5.0) g/dL Arterial Blood Potassium (3.4-4.5) mmol/L Arterial Blood Glucose (75-99) mg/dL Crossmatch 11/04/20 11/04/20 11/04/20 Range/Units 15:39 16:16 17:08 WBC 11.1 H (3.8-10.6) k/uL RBC 1.89 L (4.30-5.90) m/uL Hgb 7.0 L D (13.0-17.5) gm/dL Hct 20.2 L (39.0-53.0) % MCV 106.8 H (80.0-100.0) fL MCH 37.3 H (25.0-35.0) pg RDW (11.5-15.5) % Plt Count 128 L (150-450) k/uL Neutrophils # (Manual) 9.10 H (1.3-7.7) k/uL Lymphocytes # (Manual) (1.0-4.8) k/uL Metamyelocytes # (Man) (0) k/uL Myelocytes # (Manual) (0) k/uL PT (9.0-12.0) sec INR (<1.2) APTT (22.0-30.0) sec Fibrinogen 130 L (200-500) mg/dL ABG pH (7.35-7.45) ABG pCO2 (35-45) mmHg ABG pO2 (83-108) mmHg ABG HCO3 (21-25) mmol/L ABG Total CO2 (19-24) mmol/L ABG O2 Saturation (94-97) % ABG Hematocrit (34.0-46.0) % ABG Potassium (3.4-4.5) mmol/L ABG Ionized Calcium (4.5-5.3) mg/dL ABG Glucose (75-99) mg/dL ABG Lactic Acid (0.5-1.6) mmol/L Hemoglobin (13.0-17.5) gm/dL Chloride (98-107) mmol/L BUN (9-20) mg/dL Creatinine (0.66-1.25) mg/dL Glucose (74-99) mg/dL POC Glucose (mg/dL) 179 H (75-99) mg/dL Calcium (8.4-10.2) mg/dL Ionized Calcium Jose Miguel (4.5-5.3) mg/dL Magnesium (1.6-2.3) mg/dL Total Bilirubin (0.2-1.3) mg/dL AST (17-59) U/L Alkaline Phosphatase (38-126) U/L Total Protein (6.3-8.2) g/dL Albumin (3.5-5.0) g/dL Arterial Blood Potassium (3.4-4.5) mmol/L Arterial Blood Glucose (75-99) mg/dL Crossmatch 11/04/20 11/04/20 11/04/20 Range/Units 17:11 18:14 19:05 WBC (3.8-10.6) k/uL RBC (4.30-5.90) m/uL Hgb (13.0-17.5) gm/dL Hct (39.0-53.0) % MCV (80.0-100.0) fL MCH (25.0-35.0) pg RDW (11.5-15.5) % Plt Count (150-450) k/uL Neutrophils # (Manual) (1.3-7.7) k/uL Lymphocytes # (Manual) (1.0-4.8) k/uL Metamyelocytes # (Man) (0) k/uL Myelocytes # (Manual) (0) k/uL PT (9.0-12.0) sec INR (<1.2) APTT (22.0-30.0) sec Fibrinogen (200-500) mg/dL ABG pH (7.35-7.45) ABG pCO2 (35-45) mmHg ABG pO2 (83-108) mmHg ABG HCO3 (21-25) mmol/L ABG Total CO2 (19-24) mmol/L ABG O2 Saturation (94-97) % ABG Hematocrit (34.0-46.0) % ABG Potassium (3.4-4.5) mmol/L ABG Ionized Calcium (4.5-5.3) mg/dL ABG Glucose (75-99) mg/dL ABG Lactic Acid (0.5-1.6) mmol/L Hemoglobin (13.0-17.5) gm/dL Chloride (98-107) mmol/L BUN (9-20) mg/dL Creatinine (0.66-1.25) mg/dL Glucose (74-99) mg/dL POC Glucose (mg/dL) 165 H 142 H 123 H (75-99) mg/dL Calcium (8.4-10.2) mg/dL Ionized Calcium Jose Miguel (4.5-5.3) mg/dL Magnesium (1.6-2.3) mg/dL Total Bilirubin (0.2-1.3) mg/dL AST (17-59) U/L Alkaline Phosphatase (38-126) U/L Total Protein (6.3-8.2) g/dL Albumin (3.5-5.0) g/dL Arterial Blood Potassium (3.4-4.5) mmol/L Arterial Blood Glucose (75-99) mg/dL Crossmatch 11/04/20 11/04/20 11/04/20 Range/Units 19:51 19:53 20:40 WBC (3.8-10.6) k/uL RBC 1.96 L (4.30-5.90) m/uL Hgb 7.1 L (13.0-17.5) gm/dL Hct 20.0 L (39.0-53.0) % MCV 102.1 H (80.0-100.0) fL MCH 36.1 H (25.0-35.0) pg RDW (11.5-15.5) % Plt Count 91 L (150-450) k/uL Neutrophils # (Manual) (1.3-7.7) k/uL Lymphocytes # (Manual) 0.33 L (1.0-4.8) k/uL Metamyelocytes # (Man) (0) k/uL Myelocytes # (Manual) (0) k/uL PT (9.0-12.0) sec INR (<1.2) APTT (22.0-30.0) sec Fibrinogen (200-500) mg/dL ABG pH (7.35-7.45) ABG pCO2 (35-45) mmHg ABG pO2 (83-108) mmHg ABG HCO3 27 H (21-25) mmol/L ABG Total CO2 28 H (19-24) mmol/L ABG O2 Saturation (94-97) % ABG Hematocrit (34.0-46.0) % ABG Potassium (3.4-4.5) mmol/L ABG Ionized Calcium (4.5-5.3) mg/dL ABG Glucose (75-99) mg/dL ABG Lactic Acid (0.5-1.6) mmol/L Hemoglobin (13.0-17.5) gm/dL Chloride (98-107) mmol/L BUN (9-20) mg/dL Creatinine (0.66-1.25) mg/dL Glucose (74-99) mg/dL POC Glucose (mg/dL) 127 H (75-99) mg/dL Calcium (8.4-10.2) mg/dL Ionized Calcium Jose Miguel (4.5-5.3) mg/dL Magnesium (1.6-2.3) mg/dL Total Bilirubin (0.2-1.3) mg/dL AST (17-59) U/L Alkaline Phosphatase (38-126) U/L Total Protein (6.3-8.2) g/dL Albumin (3.5-5.0) g/dL Arterial Blood Potassium (3.4-4.5) mmol/L Arterial Blood Glucose (75-99) mg/dL Crossmatch 11/04/20 11/04/20 11/04/20 Range/Units 20:53 22:22 22:52 WBC (3.8-10.6) k/uL RBC (4.30-5.90) m/uL Hgb (13.0-17.5) gm/dL Hct (39.0-53.0) % MCV (80.0-100.0) fL MCH (25.0-35.0) pg RDW (11.5-15.5) % Plt Count (150-450) k/uL Neutrophils # (Manual) (1.3-7.7) k/uL Lymphocytes # (Manual) (1.0-4.8) k/uL Metamyelocytes # (Man) (0) k/uL Myelocytes # (Manual) (0) k/uL PT (9.0-12.0) sec INR (<1.2) APTT (22.0-30.0) sec Fibrinogen (200-500) mg/dL ABG pH (7.35-7.45) ABG pCO2 (35-45) mmHg ABG pO2 (83-108) mmHg ABG HCO3 (21-25) mmol/L ABG Total CO2 (19-24) mmol/L ABG O2 Saturation (94-97) % ABG Hematocrit (34.0-46.0) % ABG Potassium (3.4-4.5) mmol/L ABG Ionized Calcium (4.5-5.3) mg/dL ABG Glucose (75-99) mg/dL ABG Lactic Acid (0.5-1.6) mmol/L Hemoglobin (13.0-17.5) gm/dL Chloride (98-107) mmol/L BUN (9-20) mg/dL Creatinine (0.66-1.25) mg/dL Glucose (74-99) mg/dL POC Glucose (mg/dL) 133 H 132 H 120 H (75-99) mg/dL Calcium (8.4-10.2) mg/dL Ionized Calcium Jose Miguel (4.5-5.3) mg/dL Magnesium (1.6-2.3) mg/dL Total Bilirubin (0.2-1.3) mg/dL AST (17-59) U/L Alkaline Phosphatase (38-126) U/L Total Protein (6.3-8.2) g/dL Albumin (3.5-5.0) g/dL Arterial Blood Potassium (3.4-4.5) mmol/L Arterial Blood Glucose (75-99) mg/dL Crossmatch 11/04/20 11/05/20 11/05/20 Range/Units 23:25 00:07 01:14 WBC (3.8-10.6) k/uL RBC 2.42 L (4.30-5.90) m/uL Hgb 8.1 L (13.0-17.5) gm/dL Hct 23.7 L (39.0-53.0) % MCV (80.0-100.0) fL MCH (25.0-35.0) pg RDW 17.2 H (11.5-15.5) % Plt Count 82 L (150-450) k/uL Neutrophils # (Manual) 9.00 H (1.3-7.7) k/uL Lymphocytes # (Manual) 0.31 L (1.0-4.8) k/uL Metamyelocytes # (Man) (0) k/uL Myelocytes # (Manual) (0) k/uL PT (9.0-12.0) sec INR (<1.2) APTT (22.0-30.0) sec Fibrinogen (200-500) mg/dL ABG pH (7.35-7.45) ABG pCO2 (35-45) mmHg ABG pO2 (83-108) mmHg ABG HCO3 (21-25) mmol/L ABG Total CO2 (19-24) mmol/L ABG O2 Saturation (94-97) % ABG Hematocrit (34.0-46.0) % ABG Potassium (3.4-4.5) mmol/L ABG Ionized Calcium (4.5-5.3) mg/dL ABG Glucose (75-99) mg/dL ABG Lactic Acid (0.5-1.6) mmol/L Hemoglobin (13.0-17.5) gm/dL Chloride (98-107) mmol/L BUN (9-20) mg/dL Creatinine (0.66-1.25) mg/dL Glucose (74-99) mg/dL POC Glucose (mg/dL) 117 H 117 H (75-99) mg/dL Calcium (8.4-10.2) mg/dL Ionized Calcium Jose Miguel (4.5-5.3) mg/dL Magnesium (1.6-2.3) mg/dL Total Bilirubin (0.2-1.3) mg/dL AST (17-59) U/L Alkaline Phosphatase (38-126) U/L Total Protein (6.3-8.2) g/dL Albumin (3.5-5.0) g/dL Arterial Blood Potassium (3.4-4.5) mmol/L Arterial Blood Glucose (75-99) mg/dL Crossmatch 11/05/20 11/05/20 11/05/20 Range/Units 02:04 03:00 04:00 WBC (3.8-10.6) k/uL RBC 2.22 L (4.30-5.90) m/uL Hgb 7.5 L (13.0-17.5) gm/dL Hct 21.6 L (39.0-53.0) % MCV (80.0-100.0) fL MCH (25.0-35.0) pg RDW 17.7 H (11.5-15.5) % Plt Count 67 L (150-450) k/uL Neutrophils # (Manual) 8.60 H (1.3-7.7) k/uL Lymphocytes # (Manual) 0.48 L (1.0-4.8) k/uL Metamyelocytes # (Man) (0) k/uL Myelocytes # (Manual) (0) k/uL PT (9.0-12.0) sec INR (<1.2) APTT (22.0-30.0) sec Fibrinogen (200-500) mg/dL ABG pH (7.35-7.45) ABG pCO2 (35-45) mmHg ABG pO2 (83-108) mmHg ABG HCO3 (21-25) mmol/L ABG Total CO2 (19-24) mmol/L ABG O2 Saturation (94-97) % ABG Hematocrit (34.0-46.0) % ABG Potassium (3.4-4.5) mmol/L ABG Ionized Calcium (4.5-5.3) mg/dL ABG Glucose (75-99) mg/dL ABG Lactic Acid (0.5-1.6) mmol/L Hemoglobin (13.0-17.5) gm/dL Chloride (98-107) mmol/L BUN (9-20) mg/dL Creatinine (0.66-1.25) mg/dL Glucose (74-99) mg/dL POC Glucose (mg/dL) 118 H 116 H (75-99) mg/dL Calcium (8.4-10.2) mg/dL Ionized Calcium Jose Miguel (4.5-5.3) mg/dL Magnesium (1.6-2.3) mg/dL Total Bilirubin (0.2-1.3) mg/dL AST (17-59) U/L Alkaline Phosphatase (38-126) U/L Total Protein (6.3-8.2) g/dL Albumin (3.5-5.0) g/dL Arterial Blood Potassium (3.4-4.5) mmol/L Arterial Blood Glucose (75-99) mg/dL Crossmatch 11/05/20 11/05/20 11/05/20 Range/Units 04:00 04:04 05:05 WBC (3.8-10.6) k/uL RBC (4.30-5.90) m/uL Hgb (13.0-17.5) gm/dL Hct (39.0-53.0) % MCV (80.0-100.0) fL MCH (25.0-35.0) pg RDW (11.5-15.5) % Plt Count (150-450) k/uL Neutrophils # (Manual) (1.3-7.7) k/uL Lymphocytes # (Manual) (1.0-4.8) k/uL Metamyelocytes # (Man) (0) k/uL Myelocytes # (Manual) (0) k/uL PT (9.0-12.0) sec INR (<1.2) APTT (22.0-30.0) sec Fibrinogen (200-500) mg/dL ABG pH (7.35-7.45) ABG pCO2 (35-45) mmHg ABG pO2 (83-108) mmHg ABG HCO3 (21-25) mmol/L ABG Total CO2 (19-24) mmol/L ABG O2 Saturation (94-97) % ABG Hematocrit (34.0-46.0) % ABG Potassium (3.4-4.5) mmol/L ABG Ionized Calcium (4.5-5.3) mg/dL ABG Glucose (75-99) mg/dL ABG Lactic Acid (0.5-1.6) mmol/L Hemoglobin (13.0-17.5) gm/dL Chloride 110 H (98-107) mmol/L BUN (9-20) mg/dL Creatinine 0.63 L (0.66-1.25) mg/dL Glucose 105 H (74-99) mg/dL POC Glucose (mg/dL) 118 H 119 H (75-99) mg/dL Calcium 7.6 L (8.4-10.2) mg/dL Ionized Calcium Jose Miguel (4.5-5.3) mg/dL Magnesium (1.6-2.3) mg/dL Total Bilirubin 1.4 H (0.2-1.3) mg/dL AST 62 H (17-59) U/L Alkaline Phosphatase 26 L (38-126) U/L Total Protein 4.4 L (6.3-8.2) g/dL Albumin 2.6 L (3.5-5.0) g/dL Arterial Blood Potassium (3.4-4.5) mmol/L Arterial Blood Glucose (75-99) mg/dL Crossmatch 11/05/20 11/05/20 11/05/20 Range/Units 05:18 06:04 07:11 WBC (3.8-10.6) k/uL RBC (4.30-5.90) m/uL Hgb (13.0-17.5) gm/dL Hct (39.0-53.0) % MCV (80.0-100.0) fL MCH (25.0-35.0) pg RDW (11.5-15.5) % Plt Count (150-450) k/uL Neutrophils # (Manual) (1.3-7.7) k/uL Lymphocytes # (Manual) (1.0-4.8) k/uL Metamyelocytes # (Man) (0) k/uL Myelocytes # (Manual) (0) k/uL PT (9.0-12.0) sec INR (<1.2) APTT (22.0-30.0) sec Fibrinogen (200-500) mg/dL ABG pH (7.35-7.45) ABG pCO2 (35-45) mmHg ABG pO2 65 L (83-108) mmHg ABG HCO3 28 H 27 H (21-25) mmol/L ABG Total CO2 29 H 29 H (19-24) mmol/L ABG O2 Saturation 98.2 H (94-97) % ABG Hematocrit (34.0-46.0) % ABG Potassium (3.4-4.5) mmol/L ABG Ionized Calcium (4.5-5.3) mg/dL ABG Glucose (75-99) mg/dL ABG Lactic Acid (0.5-1.6) mmol/L Hemoglobin (13.0-17.5) gm/dL Chloride (98-107) mmol/L BUN (9-20) mg/dL Creatinine (0.66-1.25) mg/dL Glucose (74-99) mg/dL POC Glucose (mg/dL) 114 H (75-99) mg/dL Calcium (8.4-10.2) mg/dL Ionized Calcium Jose Miguel (4.5-5.3) mg/dL Magnesium (1.6-2.3) mg/dL Total Bilirubin (0.2-1.3) mg/dL AST (17-59) U/L Alkaline Phosphatase (38-126) U/L Total Protein (6.3-8.2) g/dL Albumin (3.5-5.0) g/dL Arterial Blood Potassium (3.4-4.5) mmol/L Arterial Blood Glucose (75-99) mg/dL Crossmatch 11/05/20 11/05/20 11/05/20 Range/Units 07:15 08:07 09:10 WBC (3.8-10.6) k/uL RBC (4.30-5.90) m/uL Hgb (13.0-17.5) gm/dL Hct (39.0-53.0) % MCV (80.0-100.0) fL MCH (25.0-35.0) pg RDW (11.5-15.5) % Plt Count (150-450) k/uL Neutrophils # (Manual) (1.3-7.7) k/uL Lymphocytes # (Manual) (1.0-4.8) k/uL Metamyelocytes # (Man) (0) k/uL Myelocytes # (Manual) (0) k/uL PT (9.0-12.0) sec INR (<1.2) APTT (22.0-30.0) sec Fibrinogen (200-500) mg/dL ABG pH (7.35-7.45) ABG pCO2 (35-45) mmHg ABG pO2 (83-108) mmHg ABG HCO3 (21-25) mmol/L ABG Total CO2 (19-24) mmol/L ABG O2 Saturation (94-97) % ABG Hematocrit (34.0-46.0) % ABG Potassium (3.4-4.5) mmol/L ABG Ionized Calcium (4.5-5.3) mg/dL ABG Glucose (75-99) mg/dL ABG Lactic Acid (0.5-1.6) mmol/L Hemoglobin (13.0-17.5) gm/dL Chloride (98-107) mmol/L BUN (9-20) mg/dL Creatinine (0.66-1.25) mg/dL Glucose (74-99) mg/dL POC Glucose (mg/dL) 115 H 116 H 112 H (75-99) mg/dL Calcium (8.4-10.2) mg/dL Ionized Calcium Jose Miguel (4.5-5.3) mg/dL Magnesium (1.6-2.3) mg/dL Total Bilirubin (0.2-1.3) mg/dL AST (17-59) U/L Alkaline Phosphatase (38-126) U/L Total Protein (6.3-8.2) g/dL Albumin (3.5-5.0) g/dL Arterial Blood Potassium (3.4-4.5) mmol/L Arterial Blood Glucose (75-99) mg/dL Crossmatch 11/05/20 11/05/20 11/05/20 Range/Units 09:20 10:05 10:48 WBC (3.8-10.6) k/uL RBC (4.30-5.90) m/uL Hgb (13.0-17.5) gm/dL Hct (39.0-53.0) % MCV (80.0-100.0) fL MCH (25.0-35.0) pg RDW (11.5-15.5) % Plt Count (150-450) k/uL Neutrophils # (Manual) (1.3-7.7) k/uL Lymphocytes # (Manual) (1.0-4.8) k/uL Metamyelocytes # (Man) (0) k/uL Myelocytes # (Manual) (0) k/uL PT (9.0-12.0) sec INR (<1.2) APTT (22.0-30.0) sec Fibrinogen (200-500) mg/dL ABG pH (7.35-7.45) ABG pCO2 (35-45) mmHg ABG pO2 54 L* (83-108) mmHg ABG HCO3 27 H (21-25) mmol/L ABG Total CO2 28 H (19-24) mmol/L ABG O2 Saturation 90.9 L (94-97) % ABG Hematocrit (34.0-46.0) % ABG Potassium (3.4-4.5) mmol/L ABG Ionized Calcium (4.5-5.3) mg/dL ABG Glucose (75-99) mg/dL ABG Lactic Acid (0.5-1.6) mmol/L Hemoglobin (13.0-17.5) gm/dL Chloride (98-107) mmol/L BUN (9-20) mg/dL Creatinine (0.66-1.25) mg/dL Glucose (74-99) mg/dL POC Glucose (mg/dL) 101 H 122 H (75-99) mg/dL Calcium (8.4-10.2) mg/dL Ionized Calcium Jose Miguel (4.5-5.3) mg/dL Magnesium (1.6-2.3) mg/dL Total Bilirubin (0.2-1.3) mg/dL AST (17-59) U/L Alkaline Phosphatase (38-126) U/L Total Protein (6.3-8.2) g/dL Albumin (3.5-5.0) g/dL Arterial Blood Potassium (3.4-4.5) mmol/L Arterial Blood Glucose (75-99) mg/dL Crossmatch 11/05/20 11/05/20 11/05/20 Range/Units 10:49 10:53 12:04 WBC 10.9 H (3.8-10.6) k/uL RBC 2.48 L (4.30-5.90) m/uL Hgb 8.2 L (13.0-17.5) gm/dL Hct 23.3 L (39.0-53.0) % MCV (80.0-100.0) fL MCH (25.0-35.0) pg RDW 19.0 H (11.5-15.5) % Plt Count 70 L (150-450) k/uL Neutrophils # (Manual) (1.3-7.7) k/uL Lymphocytes # (Manual) (1.0-4.8) k/uL Metamyelocytes # (Man) (0) k/uL Myelocytes # (Manual) (0) k/uL PT (9.0-12.0) sec INR (<1.2) APTT (22.0-30.0) sec Fibrinogen (200-500) mg/dL ABG pH 7.46 H (7.35-7.45) ABG pCO2 (35-45) mmHg ABG pO2 63 L (83-108) mmHg ABG HCO3 27 H (21-25) mmol/L ABG Total CO2 28 H (19-24) mmol/L ABG O2 Saturation (94-97) % ABG Hematocrit (34.0-46.0) % ABG Potassium (3.4-4.5) mmol/L ABG Ionized Calcium (4.5-5.3) mg/dL ABG Glucose (75-99) mg/dL ABG Lactic Acid (0.5-1.6) mmol/L Hemoglobin (13.0-17.5) gm/dL Chloride (98-107) mmol/L BUN (9-20) mg/dL Creatinine (0.66-1.25) mg/dL Glucose (74-99) mg/dL POC Glucose (mg/dL) 109 H (75-99) mg/dL Calcium (8.4-10.2) mg/dL Ionized Calcium Jose Miguel (4.5-5.3) mg/dL Magnesium (1.6-2.3) mg/dL Total Bilirubin (0.2-1.3) mg/dL AST (17-59) U/L Alkaline Phosphatase (38-126) U/L Total Protein (6.3-8.2) g/dL Albumin (3.5-5.0) g/dL Arterial Blood Potassium (3.4-4.5) mmol/L Arterial Blood Glucose (75-99) mg/dL Crossmatch
[2020-11-05 12:57] LABS: Band Neutrophils % 2 %; Lymphocytes # (M) 0.98 k/uL (1.0-4.8); Monocytes # (M) 0.87 k/uL (0-1.0); Neutrophils % (M) 81 %; Nucleated Red Blood Cells 0 /100 WBC (0-0); Total Cells Counted 100
[2020-11-05 13:05] LABS: Glucose,Whole Blood 105 mg/dL (75-99)
[2020-11-05] MEDS: HYDROcodone/APAP 5-325MG 1 EACH TAB PO PRN ×2 (15:13→20:30)
[2020-11-05 15:25] LABS: Glucose,Whole Blood 107 mg/dL (75-99)
[2020-11-05 16:30] LABS: Glucose,Whole Blood 118 mg/dL (75-99)
[2020-11-05 18:42] LABS: Glucose,Whole Blood 119 mg/dL (75-99)
--- NOTE | 2020-11-05 19:43 | P.PN ---
Progress Note - Text Progress Note Date: 11/05/20 - Chief Complaint Aortic valve replacement, 3 vessel bypass History of presenting complaint: This is a pleasant 75-year-old patient of Dr. Triana. [employer] Dr. Marrero known coronary artery disease prior stents. , Hypertension, hyperlipidemia and early emphysema. Patient today has undergone bioprosthetic aortic valve replacement for aortic stenosis and triple-vessel bypass. Currently in the ICU admitted. FiO2 100 and a PEEP of 10. As to mediastinotomy 1 left pleural chest tube. Drips include nitroglycerin, debridement, Primacor, insulin, IV fluids. Telemetry: sinus rhythm. November 05: ICU: Intubated. FiO2 60, PEEP of 12. Chest tubes in place. Drips included propofol, insulin. Telemetry shows sinus rhythm. ET tube and OG tube in place. Review of systems: Patient intubated Past medical history to include: Hypertension, hyperlipidemia, coronary artery stent, elevated PSA, emphysema, moderate aortic stenosis Social history: Lives with his son. Patient smoked about a pack a day for about 25 years of more stopped about 30 years ago. Alcohol occasional. Family history: Colon cancer Physical examination: VITAL SIGNS: 100.2, 69, 13, 109/44, 93% on the ventilator GENERAL: , laying in bed intubated EYES: Pupils equal. Conjunctiva normal. HEENT: External appearance of nose and ears normal, oral cavity-endotracheal tube, OG tube NECK: JVD unable to assess; masses not palpable. HEART: First and second heart sounds are normal; no edema. LUNGS: Respiratory rate increased; decreased breath sounds. 2 mediastinotomy and 1 left pleural chest tube ABDOMEN: Soft, nontender, liver spleen not palpable, no masses palpable. PSYCH: Patient sedated. NEUROLOGICAL: Cranial nerves grossly intact; no facial asymmetry, MUSCULAR schedule: Evidence of OA especially in the hands INVESTIGATIONS, reviewed in the clinical context: November 05: WBC 10.9 hemoglobin 8.2 platelets 70 White count 11.1 hemoglobin 7 platelets 128 Previous labs: 11/03/2020: WBC 6.9 hemoglobin 17.8 platelets 238 potassium 4.3 creatinine 0.75 Coronavirus [PCR]: Not detected Computed tomography scan chest without contrast [10/25/2020]: Bilobed nodule at the right apex 1.2 x 1.5 cm. Some congestion stranding. 2-D echocardiogram [September 2019] EF 50-45%. Hypokinetic vázquez. Moderate aortic stenosis. Moderate mitral stenosis. Assessment and plan: -Aortic valve replacement with a bioprosthetic valve and triple-vessel coronary artery disease Patient's current drips include nitroglycerin, debridement, Primacor, insulin, IV fluids -Acute hypoxic respiratory failure with ventilator support: Slow to respond Currently on 60% FiO2 and a PEEP of 12 intubated -Coronary artery disease Aspirin, Lipitor, Lopressor 12.5 twice a day -Essential hypertension Lopressor 12.5 twice a day -Hyperlipidemia Lipitor 80 mg daily at bedtime, -Primary osteoarthritis Pain medication as needed -Emphysema in a previous smoker DuoNeb 4 times a day -Moderate mitral stenosis Follow clinically -Right lung apex bilobed nodule 1.2 x 1.5 cm. Being followed by pulmonary -Acute postprocedure blood loss anemia, as expected from surgery Follow H&H -Acute thrombocytopenia, dilutional Follow CBC Remains on the ventilator. Drips included propofol, insulin. Sinus rhythm. OG tube. Thank you Dr. Townsend
[2020-11-05] MEDS: CHLORHEXIDINE GLUCONATE 15 ML CUP MUCOUS MEM SCH (20:31)
[2020-11-05] MEDS: SENNOSIDES-DOCUSATE SODIUM 1 EACH TAB PO SCH (20:31)
[2020-11-05] MEDS: EZETIMIBE 10 MG TAB PO SCH (20:31)
[2020-11-05] MEDS: ATORVASTATIN 80 MG TAB PO SCH (20:31)
[2020-11-05 20:37] LABS: Glucose,Whole Blood 108 mg/dL (75-99)
[2020-11-05 22:29] LABS: Glucose,Whole Blood 137 mg/dL (75-99)
[2020-11-06 00:14] LABS: Glucose,Whole Blood 130 mg/dL (75-99)
[2020-11-06 02:07] LABS: Glucose,Whole Blood 132 mg/dL (75-99)
[2020-11-06 04:43] LABS: Glucose,Whole Blood 141 mg/dL (75-99)
[2020-11-06 05:11] LABS: Anisocytosis Slight; HGB 7.6 gm/dL (13.0-17.5); MCH 32.9 pg (25.0-35.0); MCHC 34.6 g/dL (31.0-37.0); MCV 95.2 fL (80.0-100.0); Macrocytosis Slight; RBC 2.31 m/uL (4.30-5.90); RDW 19.6 % (11.5-15.5); WBC 12.6 k/uL (3.8-10.6)
[2020-11-06 05:17] LABS: ABG Base Excess 3.5 mmol/L; ABG HCO3 27 mmol/L (21-25); ABG Oxygen Saturation 96.4 % (94-97); ABG PCO2 38 mmHg (35-45); ABG PH 7.46 (7.35-7.45); ABG PO2 75 mmHg (83-108); ABG TCO2 28 mmol/L (19-24); Allen Test Performed? Yes
[2020-11-06 05:38] LABS: Ionized Calcium 5.1 mg/dL (4.5-5.3)
[2020-11-06 05:48] LABS: ALT 12 U/L (4-49); AST 57 U/L (17-59); African American GFR (CKD) >90 (>60 ml/min/1.73 sqM); Albumin 2.7 g/dL (3.5-5.0); Alkaline Phosphatase 32 U/L (38-126); Anion Gap 2 mmol/L; Blood Urea Nitrogen 17 mg/dL (9-20); Carbon Dioxide 26 mmol/L (22-30); Chloride 110 mmol/L (98-107); Glucose 131 mg/dL (74-99); Magnesium 2.3 mg/dL (1.6-2.3); Non-African American GFR(CKD) >90 (>60 ml/min/1.73 sqM); Platelet Count 80 k/uL (150-450); Sodium 138 mmol/L (137-145); Total Bilirubin 1.1 mg/dL (0.2-1.3); Total Protein 4.6 g/dL (6.3-8.2)
[2020-11-06 06:09] LABS: Glucose,Whole Blood 138 mg/dL (75-99)
[2020-11-06] MEDS: LACTATED RINGERS 1,000 ML IV SCH (06:10)
[2020-11-06 06:17] LABS: Band Neutrophils % 9 %; Monocytes # (M) 0.25 k/uL (0-1.0); Neutrophils % (M) 85 %; Nucleated Red Blood Cells 0 /100 WBC (0-0); Total Cells Counted 100
[2020-11-06 06:19] LABS: Polychromasia Present
--- NOTE | 2020-11-06 06:28 | XR ---
EXAMINATION TYPE: XR chest 1V portable DATE OF EXAM: 11/06/2020 COMPARISON: 11/05/2020 HISTORY: Post cardiac surgery TECHNIQUE: Single frontal view of the chest is obtained. FINDINGS: There is an ET tube 4.8 cm above the obi. There is an NG tube within the stomach. There is a left-sided chest tube the tip of which is in the region of the left upper lobe. There is a medi astinal tube is well. There is a [place]-Magdaleno catheter tip of which is in the pulmonary artery. There are scattered partially consolidative opacities likely indicating mild scattered areas of pulmo nary edema greatest in the left lung apex. There is mild retrocardiac opacity decreased compared to t he prior study most likely reflecting resolving atelectasis. There is no pneumothorax. IMPRESSION: Mild scattered pulmonary edema and left lower lobe atelectasis with no pneumothorax
[2020-11-06] MEDS: IPRATROPIUM-ALBUTEROL 3 ML NEB INHALATION SCH ×4 (07:52→20:05)
[2020-11-06] MEDS ORDERED: FUROSEMIDE 10 MG/ML 4 ML VIAL IV STA (07:56)
--- NOTE | 2020-11-06 07:59 | P.PN ---
Subjective Progress Note Date: 11/06/20 This is a 75-year-old male patient, underwent an aortic valve replacement with a bioprosthetic aortic valve and three-vessel bypass surgery with vein grafts and the patient is currently postoperative in intensive care unit. The patient is known to have coronary artery disease. He has undergone previous coronary intervention stenting of an 80% RCA lesion. He was symptomatic and further investigation revealed triple-vessel disease and for that reason he was taken to the operating room. He is also moderately severe aortic stenosis. Currently is sedated on propofol which is running at 25 mg/kg per minute. Is quite sedated on a mechanical ventilator. His blood gases showed a respiratory acidosis with a pH of 7.136 and a pCO2 of 73 and pO2 of 71. This was an assist-control mode at the rate of 14 with a tidal volume of 450 and FiO2 of 1 and a PEEP of 5. Since then, the PEEP has been increased up to 8, and his respiratory rate is up to 24. Current pulse ox on the monitor that 90%.. The patient has 2 mediastinal chest tubes and 1 pleural chest tube. Output from mediastinal chest tube has been around 450 mL and output from the left pleural chest tube is been around 130 mL since the patient up from the operating room. The patient is hemodynamically supported with Primacor at 0.25 mcg/kg per minute and the patient is also on nitroglycerin drip at 25 g 5 minutes. Patient has a cardiac index of 2.3. Pulmonary artery pressures of 61/31. He is on insulin drip running at 1.5 units an hour. He has an adequate urine output. Chest x-ray postop showed adequate expansion of both lungs. No this of pneumothorax. ET tube is in good location. [place]-Magdaleno remains in a good location. The patient is an OG tube and 2 mediastinal and 1 pleural chest tube on of the mandible location there is no evidence of any pneumothorax. Cardiac rhythm is sinus. 11/05/2020, the patient remains on a mechanical ventilator. I was unable to wean him yesterday because of his limited oxygenation. Overnight, the patient was kept on a PEEP of 8 and his FiO2 is down to 90% and he has a tidal volume of 450 with a rate of 24. His peak airway pressure this morning is at 24. The morning blood gases showed a pH of 7.44 with a pCO2 of 41 and pO2 of 65. Based on that, I increased the PEEP up to 10 and 30. Blood gases showed a pH of 7.45 with a pCO2 of 40 and pO2 of 92. His FiO2 subsequently was found to 60%. This current pulse ox is 93%. He remains sedated with propofol and he is currently on 20 mcg/kg per minute and is well rested for now. He has 2 mediastinal chest tubes and a left pleural chest tube. Output from the mediastinal chest tube has been 10-20 mL's an hour and from the pleural chest tube is in order of 10-20 mL an hour. The patient's is hemodynamically stable. He is off milrinone for now. Cardiac index is in order of 2.4 with an output of 4.8. There has been impr ovement in the pulmonary artery pressures which is dropped down to 43/25. His CVP is currently at 8. His morning hemoglobin was at 7.5 and the patient was given a unit of packed RBC. He has a RHINA drain in his left lower extremity, output is bloody and minimal at this point in time. His cardiac rhythm is sinus. He is on an insulin drip running at 1.5 units an hour. He is off the nitroglycerin drip. He was given IV Solu Medrol yesterday regarding COPD and some increased bronchospasm and wheeze. He is also on bronchodilators. Chest x-ray from today shows adequate expansion of both lungs. There is a right upper lobe pulmonary nodule that was evident on the previous PET scan. Chronic no dularity and scarring in the left upper lobe also. No sizable pneumothorax. Minimal atelectatic changes and effusion the lung bases. Mediastinal chest tubes and left pleural chest tube of been in good location. Count is up from 82 down to 67. Also is following some simple commands and he can be aroused out of his sedation upon stimulation. 11/06/2020 him I'm seeing this patient for a follow-up. The patient remains intubated. We had some issues with his oxygenation and for that reason his extubation has been delayed. In summary, the patient remains on a mechanical ventilator. This morning he is an assist-control mode at the rate of 24 with a tidal volume of 450 and FiO2 of 60% with a PEEP of 12. Blood gases from today shows a pH of 7.46 orally 6 with a pCO2 of 38 and pO2 of 75. Chest x-ray showing some limited interstitial edema/pulmonary edema and the patient would benefit from some diuretics. His coronary artery pressures have been lower postop and is currently at the pressure of 51/26. CVP is at 7. Cardiac output is 5.3 with an index of 2.7. He is off milrinone. Is off the nitroglycerin drip. He is still on insulin drip at 1.5 units an hour. The output from the mediastinal tube has been 300 over the past 24 hours and output from the left pleural chest tube is 200 mL over the past 24 hours. Output remains somewhat bloody. No evidence of any air leak. No evidence of any pneumothorax on his chest x-ray. He remains sedated with propofol which is running at 30 mg/kg/m. He did have some loose liquidy bloody rest of the secretions which is being suctioned out of his orotracheal tube. Otherwise, his cardiac rhythm remains sinus. Occasional junctional rhythm was also noted. RHINA drain from his left lower extremity has been removed. Objective - Vital Signs Vital signs: Vital Signs Temp 98.1 F 11/06/20 04:00 Pulse 70 11/06/20 07:00 Resp 28 H 11/06/20 07:00 BP 99/69 11/06/20 04:00 Pulse Ox 93 L 11/06/20 07:00 Intake & Output 11/05/20 11/06/20 11/06/20 18:59 06:59 18:59 Intake Total 1550.000 996.546 Output Total 605 565 Balance 945.000 431.546 Weight 89 kg 92 kg Intake: IV 680 690 CO/CI 80 90 Lactated Ringers 1,000 ml 600 600 @ 50 mls/hr IV .Q20H [facility] Rx#:[id number] Intake, IV Titration 250.000 306.546 Amount Calcium Gluconate 1 gm In 100 Sodium Chloride 0.9% 100 ml @ 100 mls/hr IVPB ONCE ONE Rx#:[id number] Insulin Regular 100 unit 45.231 In Sodium Chloride 0.9% 100 ml @ Per Protocol IV .Q0M [facility] Rx#:[id number] ceFAZolin 2 gm In Sodium 50 Chloride 0.9% 50 ml @ 100 mls/hr IVPB Q8HR [facility] Rx# :[id number] propofoL 1,000 mg In 100.000 261.315 Empty Bag 1 bag @ Titrate IV .Q0M [facility] Rx#: [id number] Blood Product 620 Rc As-1 Unit 310 [id number] Output: Chest Tube Drainage 240 190 Mediastinal 90 70 medistinal #1 150 120 Urine 365 375 Other: Voiding Method Indwelling Catheter Indwelling Catheter ABP, PAP, CO, CI - Last Documented Arterial Blood Pressure 119/53 Pulmonary Artery Pressure 49/21 Cardiac Output 5.3 Cardiac Index 2.7 - Exam Gen. appearance the patient sedated, comfortable not in acute respiratory distress orogastric and orotracheal tube are both in place. The patient is quite successful mechanical ventilator. Head exam was generally normal. There was no scleral icterus or corneal arcus. Mucous membranes were moist. Neck was supple and without jugular venous distension, thyromegaly, or carotid bruits. Carotids were easily palpable bilaterally. There was no adenopathy. The patient has a right IJ [place]-Magdaleno catheter in place Lungs sounds are equal and symmetrical bilaterally. Patient has 2 mediastinal chest tube and 1 pleural chest tube. No evidence of any air leak. Output has been noted Cardiac exam revealed the PMI to be normally situated and sized. The rhythm was regular and no extrasystoles were noted during several minutes of auscultation. The first and second heart sounds were normal and physiologic splitting of the second heart sound was noted. There were no murmurs, rubs, clicks, or gallops. Sternum stable clean and intact. Abdominal exam revealed normal bowel sounds. The abdomen was soft, non-tender, and without masses, organomegaly, or appreciable enlargement of the abdominal aorta. Extremities the patient is a RHINA drain in the left lower extremity. Pulses are equal and symmetrical diminished. Extremities are cold. No cyanosis or clubbing. Neurologically sedated, pupils are equal and reactive to light. - Labs CBC & Chem 7: 11/06/20 04:45 11/06/20 04:45 Labs: Abnormal Lab Results - Last 24 Hours (Table) 10/24/20 11/05/20 11/05/20 Range/Units 13:00 08:07 09:10 WBC (3.8-10.6) k/uL RBC (4.30-5.90) m/uL Hgb (13.0-17.5) gm/dL Hct (39.0-53.0) % RDW (11.5-15.5) % Plt Count (150-450) k/uL Neutrophils # (Manual) (1.3-7.7) k/uL Lymphocytes # (Manual) (1.0-4.8) k/uL ABG pH (7.35-7.45) ABG pO2 (83-108) mmHg ABG HCO3 (21-25) mmol/L ABG Total CO2 (19-24) mmol/L ABG O2 Saturation (94-97) % Chloride (98-107) mmol/L Creatinine (0.66-1.25) mg/dL Glucose (74-99) mg/dL POC Glucose (mg/dL) 116 H 112 H (75-99) mg/dL Calcium (8.4-10.2) mg/dL Alkaline Phosphatase (38-126) U/L Total Protein (6.3-8.2) g/dL Albumin (3.5-5.0) g/dL Crossmatch See Detail 11/05/20 11/05/20 11/05/20 Range/Units 09:20 10:05 10:48 WBC (3.8-10.6) k/uL RBC (4.30-5.90) m/uL Hgb (13.0-17.5) gm/dL Hct (39.0-53.0) % RDW (11.5-15.5) % Plt Count (150-450) k/uL Neutrophils # (Manual) (1.3-7.7) k/uL Lymphocytes # (Manual) (1.0-4.8) k/uL ABG pH (7.35-7.45) ABG pO2 54 L* (83-108) mmHg ABG HCO3 27 H (21-25) mmol/L ABG Total CO2 28 H (19-24) mmol/L ABG O2 Saturation 90.9 L (94-97) % Chloride (98-107) mmol/L Creatinine (0.66-1.25) mg/dL Glucose (74-99) mg/dL POC Glucose (mg/dL) 101 H 122 H (75-99) mg/dL Calcium (8.4-10.2) mg/dL Alkaline Phosphatase (38-126) U/L Total Protein (6.3-8.2) g/dL Albumin (3.5-5.0) g/dL Crossmatch 11/05/20 11/05/20 11/05/20 Range/Units 10:49 10:53 12:04 WBC 10.9 H (3.8-10.6) k/uL RBC 2.48 L (4.30-5.90) m/uL Hgb 8.2 L (13.0-17.5) gm/dL Hct 23.3 L (39.0-53.0) % RDW 19.0 H (11.5-15.5) % Plt Count 70 L (150-450) k/uL Neutrophils # (Manual) 9.00 H (1.3-7.7) k/uL Lymphocytes # (Manual) 0.98 L (1.0-4.8) k/uL ABG pH 7.46 H (7.35-7.45) ABG pO2 63 L (83-108) mmHg ABG HCO3 27 H (21-25) mmol/L ABG Total CO2 28 H (19-24) mmol/L ABG O2 Saturation (94-97) % Chloride (98-107) mmol/L Creatinine (0.66-1.25) mg/dL Glucose (74-99) mg/dL POC Glucose (mg/dL) 109 H (75-99) mg/dL Calcium (8.4-10.2) mg/dL Alkaline Phosphatase (38-126) U/L Total Protein (6.3-8.2) g/dL Albumin (3.5-5.0) g/dL Crossmatch 11/05/20 11/05/20 11/05/20 Range/Units 13:03 15:05 16:12 WBC (3.8-10.6) k/uL RBC (4.30-5.90) m/uL Hgb (13.0-17.5) gm/dL Hct (39.0-53.0) % RDW (11.5-15.5) % Plt Count (150-450) k/uL Neutrophils # (Manual) (1.3-7.7) k/uL Lymphocytes # (Manual) (1.0-4.8) k/uL ABG pH (7.35-7.45) ABG pO2 (83-108) mmHg ABG HCO3 (21-25) mmol/L ABG Total CO2 (19-24) mmol/L ABG O2 Saturation (94-97) % Chloride (98-107) mmol/L Creatinine (0.66-1.25) mg/dL Glucose (74-99) mg/dL POC Glucose (mg/dL) 105 H 107 H 118 H (75-99) mg/dL Calcium (8.4-10.2) mg/dL Alkaline Phosphatase (38-126) U/L Total Protein (6.3-8.2) g/dL Albumin (3.5-5.0) g/dL Crossmatch 11/05/20 11/05/20 11/05/20 Range/Units 18:21 20:26 22:17 WBC (3.8-10.6) k/uL RBC (4.30-5.90) m/uL Hgb (13.0-17.5) gm/dL Hct (39.0-53.0) % RDW (11.5-15.5) % Plt Count (150-450) k/uL Neutrophils # (Manual) (1.3-7.7) k/uL Lymphocytes # (Manual) (1.0-4.8) k/uL ABG pH (7.35-7.45) ABG pO2 (83-108) mmHg ABG HCO3 (21-25) mmol/L ABG Total CO2 (19-24) mmol/L ABG O2 Saturation (94-97) % Chloride (98-107) mmol/L Creatinine (0.66-1.25) mg/dL Glucose (74-99) mg/dL POC Glucose (mg/dL) 119 H 108 H 137 H (75-99) mg/dL Calcium (8.4-10.2) mg/dL Alkaline Phosphatase (38-126) U/L Total Protein (6.3-8.2) g/dL Albumin (3.5-5.0) g/dL Crossmatch 11/06/20 11/06/20 11/06/20 Range/Units 00:14 02:05 04:41 WBC (3.8-10.6) k/uL RBC (4.30-5.90) m/uL Hgb (13.0-17.5) gm/dL Hct (39.0-53.0) % RDW (11.5-15.5) % Plt Count (150-450) k/uL Neutrophils # (Manual) (1.3-7.7) k/uL Lymphocytes # (Manual) (1.0-4.8) k/uL ABG pH (7.35-7.45) ABG pO2 (83-108) mmHg ABG HCO3 (21-25) mmol/L ABG Total CO2 (19-24) mmol/L ABG O2 Saturation (94-97) % Chloride (98-107) mmol/L Creatinine (0.66-1.25) mg/dL Glucose (74-99) mg/dL POC Glucose (mg/dL) 130 H 132 H 141 H (75-99) mg/dL Calcium (8.4-10.2) mg/dL Alkaline Phosphatase (38-126) U/L Total Protein (6.3-8.2) g/dL Albumin (3.5-5.0) g/dL Crossmatch 11/06/20 11/06/20 11/06/20 Range/Units 04:45 04:45 05:15 WBC 12.6 H (3.8-10.6) k/uL RBC 2.31 L (4.30-5.90) m/uL Hgb 7.6 L (13.0-17.5) gm/dL Hct 22.0 L (39.0-53.0) % RDW 19.6 H (11.5-15.5) % Plt Count 80 L (150-450) k/uL Neutrophils # (Manual) 11.80 H (1.3-7.7) k/uL Lymphocytes # (Manual) 0.50 L (1.0-4.8) k/uL ABG pH 7.46 H (7.35-7.45) ABG pO2 75 L (83-108) mmHg ABG HCO3 27 H (21-25) mmol/L ABG Total CO2 28 H (19-24) mmol/L ABG O2 Saturation (94-97) % Chloride 110 H (98-107) mmol/L Creatinine 0.63 L (0.66-1.25) mg/dL Glucose 131 H (74-99) mg/dL POC Glucose (mg/dL) (75-99) mg/dL Calcium 8.0 L (8.4-10.2) mg/dL Alkaline Phosphatase 32 L (38-126) U/L Total Protein 4.6 L (6.3-8.2) g/dL Albumin 2.7 L (3.5-5.0) g/dL Crossmatch 11/06/20 Range/Units 06:08 WBC (3.8-10.6) k/uL RBC (4.30-5.90) m/uL Hgb (13.0-17.5) gm/dL Hct (39.0-53.0) % RDW (11.5-15.5) % Plt Count (150-450) k/uL Neutrophils # (Manual) (1.3-7.7) k/uL Lymphocytes # (Manual) (1.0-4.8) k/uL ABG pH (7.35-7.45) ABG pO2 (83-108) mmHg ABG HCO3 (21-25) mmol/L ABG Total CO2 (19-24) mmol/L ABG O2 Saturation (94-97) % Chloride (98-107) mmol/L Creatinine (0.66-1.25) mg/dL Glucose (74-99) mg/dL POC Glucose (mg/dL) 138 H (75-99) mg/dL Calcium (8.4-10.2) mg/dL Alkaline Phosphatase (38-126) U/L Total Protein (6.3-8.2) g/dL Albumin (3.5-5.0) g/dL Crossmatch Assessment and Plan Plan: 1 multivessel coronary artery disease, symptomatic, post three-vessel bypass surgery with venous graft and aortic valve replacement. The patient is postop day #2. Imodium dynamically stable. He is off pressors. Adequate cardiac output. Unable to extubate because of ongoing hypoxemia. The patient is currently being weaned off. FiO2 has been weaned down to 50%. PEEP will be dropped down to 10. Chest x-ray showed some limited pulmonary edema and the patient will be given a dose of Lasix by mouth chest tubes are in place. No pneumothorax. No hypotension. Adequate urine output. 2 acute hypoxic respiratory failure. The blood gas also showed a component of hypercapnic respiratory failure, acute. Ongoing hypoxemia delayed our extubation in this patient. There is essentially related to COPD, possibly component of fluid and atelectasis. He is currently on a PEEP of 10 with an FiO2 of 50%. 3 coronary artery disease with previous stenting of the RCA 4 COPD 5 history of extensive right upper lobe pneumonia 6 history of right upper lobe pulmonary nodule identified on a CAT scan of the chest with an average PET scan obesity workup postop with a higher suspicious fo r malignancy based on the PET scan findings 7 hypertension 8 hyperlipidemia 9 degenerative arthritis. Plan Keep the PEEP at 10 and the wean down the FiO2 down to 50% and repeat a blood gas. Monitor the blood gases Keep the patient sedated with propofol for now. off Primacor monitor the cardiac output Lasix 40 mg IV x1 Keep insulin drip at 1.5 units an hour We'll continue to follow. Work in progress. I'm hoping to extubate the patient today and this will depend on his overall hemodynamic status and his oxygenation status. We'll repeat the blood gas. If adequate, we'll proceed with further weaning of the PEEP and subsequently had a sedation holiday. Critical care evaluation was on a more than 30 minutes. Time with Patient: Greater than 30
[2020-11-06] MEDS: METOPROLOL TARTRATE 12.5 MG TAB PO SCH ×2 (08:16→19:55)
[2020-11-06] MEDS: MULTIVITAMINS, THERA 1 EACH TAB PO SCH (08:16)
[2020-11-06] MEDS: HYDROcodone/APAP 5-325MG 1 EACH TAB PO PRN (08:17)
[2020-11-06] MEDS: methylPREDNISolone SOD SUCCI 40 MG/ML 1 ML VIAL IV SCH ×2 (08:17→15:22)
[2020-11-06] MEDS: PANTOPRAZOLE 40 MG/10 ML VIAL IVP SCH (08:17)
[2020-11-06] MEDS: ASCORBIC ACID 500 MG TAB PO SCH (08:17)
[2020-11-06] MEDS: ASPIRIN 325 MG TAB PO SCH (08:17)
[2020-11-06 08:29] LABS: ABG Base Excess 2.7 mmol/L; ABG HCO3 27 mmol/L (21-25); ABG Oxygen Saturation 83.3 % (94-97); ABG PCO2 38 mmHg (35-45); ABG PH 7.45 (7.35-7.45); ABG TCO2 28 mmol/L (19-24)
[2020-11-06 08:32] LABS: ABG PO2 46 mmHg (83-108)
[2020-11-06] MEDS: CHLORHEXIDINE GLUCONATE 15 ML CUP MUCOUS MEM SCH ×2 (08:47→19:55)
[2020-11-06 08:48] LABS: Glucose,Whole Blood 146 mg/dL (75-99)
[2020-11-06 09:01] LABS: Amorphous Sediment,Urine Rare /hpf; Appearance,Urine Cloudy (Clear); Bacteria,Urine Occasional /hpf; Bilirubin,Urine Negative (Negative); Blood,Urine Large (Negative); Cellular Casts,Urine 3 /lpf (0); Color,Urine Yellow; Glucose,Urine (UA) Negative (Negative); Hyaline Casts,Urine 5 /lpf (0-2); Ketones,Urine Negative (Negative); Leukocyte Esterase,Urine Trace (Negative); Mucus,Urine Rare /hpf; Nitrite,Urine Negative (Negative); PH, Urine 5.5 (5.0-8.0); Protein,Urine 1+ (Negative); RBC,Urine 47 /hpf (0-5); Squamous Epithelial Cell,Urine 1 /hpf (0-4); Urobilinogen,Urine <2.0 mg/dL (<2.0); WBC,Urine 16 /hpf (0-5)
--- NOTE | 2020-11-06 09:48 | P.PN ---
Subjective Progress Note Date: 11/06/20 Principal diagnosis: Severe triple vessel coronary artery disease, moderate to severe aortic valve stenosis, pulmonary hypertension and right upper lobe pulmonary nodule, suspicious for malignancy based on PET scan findings. Past medical history significant for hypertension, hyperlipidemia, right subclavian artery stenosis, coronary artery disease with previous stenting of the right coronary artery, history of right upper lobe pneumonia, COPD with preoperative FEV1 showing a predicted value of 66%, DLCO 18% of predicted value and remote history of nicotine dependence in which he quit smoking around 25 years ago. POD #2 aortic valve replacement with a 27 mm [place] Inspiris bioprosthetic aortic valve, coronary artery bypass grafting 3 with a reverse saphenous vein graft off the aorta to the circumflex coronary artery, the left anterior descending coronary artery and the posterior descending coronary artery with bilateral lower extremity greater saphenous vein endoscopic harvesting. Clip ligation of the left atrial appendage with a 35 mm Atriclip, intraoperative transesophageal echocardiogram and graft flow measurement using the Promosome system. Postoperative acute blood loss anemia and thrombocytopenia, expected given hemodilution and cardiopulmonary bypass. Prolonged mechanical ventilation, secondary acute hypoxic respiratory failure with ongoing hypoxemia, preoperative FEV1 66% of predicted value and DLCO 18% of predicted value. The patient was seen in follow-up today 11/06/2020 at his bedside in the intensive care unit. He is laying in bed, remains intubated, sedated with propofol drip at 30 mcg/kg/m and is in no apparent acute distress. Despite being sedated on propofol he is moving all 4 extremities appropriately with verbal stimuli. He remains hemodynamically stable and is currently on no inotropic or pressor support. Bedside telemetry is showing normal sinus rhythm heart rate 72 BPM with occasional junctional beat. Bedside pacemaker generator is in place and connected to atrial/ventricular epicardial pacemaker wires on a VVI backup mode of 50 BPM. Current mechanical ventilator settings are as follows assist control 24, tidal volume 450, FiO2 60% and a PEEP of 12. Arterial blood gas results this morning show a pH of 7.46, pCO2 38, pO2 75, HCO3 27, oxygen saturation 96.4 and base excess of 3.5. Right IJ Cordis and [place] catheter remains in place with current hemodynamics showing a cardiac output 5.3, cardiac index 2.7, PA pressures 51/26 and a CVP pressure of 7 mmHg. Mediastinal and left pleural chest tubes remain in place to low continuous wall suction -20 cm H2O. No air leak is present. Draining thin serosanguineous drainage with 90 mL out of the mediastinal chest tube in the last 8 hours and 300 mL output in the last 24 hours. The mediastinal and left pleural chest tube with 60 mL output in the last 8 hours and 200 mL output in the last 24 hours. The patient is having some thin serosanguineous drainage from his ET tube secretions this morning. He remains afebrile. Laboratory results this morning show a WBC count of 12.6, hemoglobin 7.6, hematocrit 22.0, platelets 80, positive bandemia 9%, neutrophils 11.8, sodium 138, potassium 4.0, BUN 17, creatinine 0.63 and glucose 131. Espinal catheter remains in place for accurate I's and O's with 240 mL output in the last 8 hours. Chest x-ray from this morning shows no evidence of pneumothorax and mild scattered pulmonary edema with left lower lobe atelectasis. Objective - Vital Signs Vital signs: Vital Signs Temp 98.6 F 11/06/20 08:00 Pulse 77 11/06/20 09:00 Resp 17 11/06/20 09:00 BP 125/66 11/06/20 09:00 Pulse Ox 96 11/06/20 09:00 Intake & Output 11/05/20 11/06/20 11/06/20 18:59 06:59 18:59 Intake Total 1550.000 996.546 164.804 Output Total 605 565 340 Balance 945.000 431.546 -175.196 Weight 89 kg 92 kg Intake: IV 680 690 120 CO/CI 80 90 20 Lactated Ringers 1,000 ml 600 600 100 @ 50 mls/hr IV .Q20H CINDY Rx#:[id number] Intake, IV Titration 250.000 306.546 44.804 Amount Calcium Gluconate 1 gm In 100 Sodium Chloride 0.9% 100 ml @ 100 mls/hr IVPB ONCE ONE Rx#:[id number] Insulin Regular 100 unit 45.231 In Sodium Chloride 0.9% 100 ml @ Per Protocol IV .Q0M CINDY Rx#:[id number] ceFAZolin 2 gm In Sodium 50 Chloride 0.9% 50 ml @ 100 mls/hr IVPB Q8HR CINDY Rx# :[id number] propofoL 1,000 mg In 100.000 261.315 44.804 Empty Bag 1 bag @ Titrate IV .Q0M COUNT INCLUDES THE [facility] Rx#: [id number] Blood Product 620 Rc As-1 Unit 310 [id number] Output: Chest Tube Drainage 240 190 40 Mediastinal 90 70 10 medistinal #1 150 120 30 Urine 365 375 300 Other: Voiding Method Indwelling Catheter Indwelling Catheter Indwelling Catheter ABP, PAP, CO, CI - Last Documented Arterial Blood Pressure 118/49 Pulmonary Artery Pressure 46/19 Cardiac Output 5.3 Cardiac Index 2.7 - Exam CONSTITUTIONAL: Lying in bed in the intensive care unit, remain sedated on propofol drip at 30 mcg/kg/m, appears comfortable, cooperative, no apparent acute distress. HEENT: Neck is supple, no JVD, no lymphadenopathy. Right IJ Cordis and [place] catheter in place and functioning. RESPIRATORY: Lungs sounds essentially clear throughout, diminished to his bilateral bases. Respirations are symmetrical and nonlabored with mechanical ventilator support. Current mechanical ventilator settings are as follows, assist-control 24, TV 450, FiO2 60% and a PEEP of 12. Thin serosanguineous se cretions from his ET tube. CARDIOVASCULAR: Regular rhythm and rate. S1 and S2 present, negative for S3, gallop or murmur. Sternum is stable. Palpable peripheral pulses bilaterally, no edema to his bilateral lower extremities. Heart hugger in place. Knee- high ELEONORA hose and sequential compression devices in place to his bilateral lower extremities. Bedside telemetry showing normal sinus rhythm with a right bundle branch block heart rate 72 bpm, occasional junctional rhythm. GASTROINTESTINAL: Abdomen soft, nontender, nondistended. Active bowel sounds present 4 quadrants. No guarding or rigidity. OG tube in place to low intermittent wall suction. GENITOURINARY: Espinal present for accurate I&O, draining clear yellow urine. Output 240 mL in the last 8 hours. INTEGUMENTARY: Skin is warm and dry with no evidence of clubbing or cyanosis. Midline sternal incision clean dry and well approximated, covered with dry intact dressing. Bilateral lower extremity EVH sites well approximated without redness or drainage. NEUROLOGIC: Sedated on propofol drip at 30 mcg/kg/m. PERRLA. No focal deficits. MUSKULOSKELETAL: Able to move all extremities, generalized weakness. PSYCHIATRIC: Unable to accurately assess at this time as the patient remains sedated on propofol drip and remains intubated with mechanical ventilator support. INVASIVE LINES AND TUBES: Mediastinal/left pleural chest tubes present and connected to low continuous wall suction, no air leaks present. Mediastinal tube with 90 mL of thin serosanguineous drainage overnight, 300 mL output since surgery. Left/mediastinal pleural chest tubes with 60 mL of thin serosanguineous drainage overnight, 200 mL output since surgery. Atrial and ventricular epicardial pacemaker wires present, connected to bedside pacemaker generator, VVI mode with a backup of 50 BPM. Right internal jugular [place], right radial arterial line present. Last CO 5.3, CI 2.7, PA 51/26 and CVP 7 mmHg. - Allied health notes Allied health notes reviewed: nursing - Labs CBC & Chem 7: 11/06/20 04:45 11/06/20 04:45 Labs: Abnormal Lab Results - Last 24 Hours (Table) 10/24/20 11/05/20 11/05/20 Range/Units 13:00 10:05 10:48 WBC (3.8-10.6) k/uL RBC (4.30-5.90) m/uL Hgb (13.0-17.5) gm/dL Hct (39.0-53.0) % RDW (11.5-15.5) % Plt Count (150-450) k/uL Neutrophils # (Manual) (1.3-7.7) k/uL Lymphocytes # (Manual) (1.0-4.8) k/uL ABG pH (7.35-7.45) ABG pO2 (83-108) mmHg ABG HCO3 (21-25) mmol/L ABG Total CO2 (19-24) mmol/L ABG O2 Saturation (94-97) % Chloride (98-107) mmol/L Creatinine (0.66-1.25) mg/dL Glucose (74-99) mg/dL POC Glucose (mg/dL) 101 H 122 H (75-99) mg/dL Calcium (8.4-10.2) mg/dL Alkaline Phosphatase (38-126) U/L Total Protein (6.3-8.2) g/dL Albumin (3.5-5.0) g/dL Urine Protein (Negative) Urine Blood (Negative) Ur Leukocyte Esterase (Negative) Urine RBC (0-5) /hpf Urine WBC (0-5) /hpf Amorphous Sediment (None) /hpf Urine Bacteria (None) /hpf Hyaline Casts (0-2) /lpf Urine Mucus (None) /hpf Crossmatch See Detail 11/05/20 11/05/20 11/05/20 Range/Units 10:49 10:53 12:04 WBC 10.9 H (3.8-10.6) k/uL RBC 2.48 L (4.30-5.90) m/uL Hgb 8.2 L (13.0-17.5) gm/dL Hct 23.3 L (39.0-53.0) % RDW 19.0 H (11.5-15.5) % Plt Count 70 L (150-450) k/uL Neutrophils # (Manual) 9.00 H (1.3-7.7) k/uL Lymphocytes # (Manual) 0.98 L (1.0-4.8) k/uL ABG pH 7.46 H (7.35-7.45) ABG pO2 63 L (83-108) mmHg ABG HCO3 27 H (21-25) mmol/L ABG Total CO2 28 H (19-24) mmol/L ABG O2 Saturation (94-97) % Chloride (98-107) mmol/L Creatinine (0.66-1.25) mg/dL Glucose (74-99) mg/dL POC Glucose (mg/dL) 109 H (75-99) mg/dL Calcium (8.4-10.2) mg/dL Alkaline Phosphatase (38-126) U/L Total Protein (6.3-8.2) g/dL Albumin (3.5-5.0) g/dL Urine Protein (Negative) Urine Blood (Negative) Ur Leukocyte Esterase (Negative) Urine RBC (0-5) /hpf Urine WBC (0-5) /hpf Amorphous Sediment (None) /hpf Urine Bacteria (None) /hpf Hyaline Casts (0-2) /lpf Urine Mucus (None) /hpf Crossmatch 11/05/20 11/05/20 11/05/20 Range/Units 13:03 15:05 16:12 WBC (3.8-10.6) k/uL RBC (4.30-5.90) m/uL Hgb (13.0-17.5) gm/dL Hct (39.0-53.0) % RDW (11.5-15.5) % Plt Count (150-450) k/uL Neutrophils # (Manual) (1.3-7.7) k/uL Lymphocytes # (Manual) (1.0-4.8) k/uL ABG pH (7.35-7.45) ABG pO2 (83-108) mmHg ABG HCO3 (21-25) mmol/L ABG Total CO2 (19-24) mmol/L ABG O2 Saturation (94-97) % Chloride (98-107) mmol/L Creatinine (0.66-1.25) mg/dL Glucose (74-99) mg/dL POC Glucose (mg/dL) 105 H 107 H 118 H (75-99) mg/dL Calcium (8.4-10.2) mg/dL Alkaline Phosphatase (38-126) U/L Total Protein (6.3-8.2) g/dL Albumin (3.5-5.0) g/dL Urine Protein (Negative) Urine Blood (Negative) Ur Leukocyte Esterase (Negative) Urine RBC (0-5) /hpf Urine WBC (0-5) /hpf Amorphous Sediment (None) /hpf Urine Bacteria (None) /hpf Hyaline Casts (0-2) /lpf Urine Mucus (None) /hpf Crossmatch 11/05/20 11/05/20 11/05/20 Range/Units 18:21 20:26 22:17 WBC (3.8-10.6) k/uL RBC (4.30-5.90) m/uL Hgb (13.0-17.5) gm/dL Hct (39.0-53.0) % RDW (11.5-15.5) % Plt Count (150-450) k/uL Neutrophils # (Manual) (1.3-7.7) k/uL Lymphocytes # (Manual) (1.0-4.8) k/uL ABG pH (7.35-7.45) ABG pO2 (83-108) mmHg ABG HCO3 (21-25) mmol/L ABG Total CO2 (19-24) mmol/L ABG O2 Saturation (94-97) % Chloride (98-107) mmol/L Creatinine (0.66-1.25) mg/dL Glucose (74-99) mg/dL POC Glucose (mg/dL) 119 H 108 H 137 H (75-99) mg/dL Calcium (8.4-10.2) mg/dL Alkaline Phosphatase (38-126) U/L Total Protein (6.3-8.2) g/dL Albumin (3.5-5.0) g/dL Urine Protein (Negative) Urine Blood (Negative) Ur Leukocyte Esterase (Negative) Urine RBC (0-5) /hpf Urine WBC (0-5) /hpf Amorphous Sediment (None) /hpf Urine Bacteria (None) /hpf Hyaline Casts (0-2) /lpf Urine Mucus (None) /hpf Crossmatch 11/06/20 11/06/20 11/06/20 Range/Units 00:14 02:05 04:41 WBC (3.8-10.6) k/uL RBC (4.30-5.90) m/uL Hgb (13.0-17.5) gm/dL Hct (39.0-53.0) % RDW (11.5-15.5) % Plt Count (150-450) k/uL Neutrophils # (Manual) (1.3-7.7) k/uL Lymphocytes # (Manual) (1.0-4.8) k/uL ABG pH (7.35-7.45) ABG pO2 (83-108) mmHg ABG HCO3 (21-25) mmol/L ABG Total CO2 (19-24) mmol/L ABG O2 Saturation (94-97) % Chloride (98-107) mmol/L Creatinine (0.66-1.25) mg/dL Glucose (74-99) mg/dL POC Glucose (mg/dL) 130 H 132 H 141 H (75-99) mg/dL Calcium (8.4-10.2) mg/dL Alkaline Phosphatase (38-126) U/L Total Protein (6.3-8.2) g/dL Albumin (3.5-5.0) g/dL Urine Protein (Negative) Urine Blood (Negative) Ur Leukocyte Esterase (Negative) Urine RBC (0-5) /hpf Urine WBC (0-5) /hpf Amorphous Sediment (None) /hpf Urine Bacteria (None) /hpf Hyaline Casts (0-2) /lpf Urine Mucus (None) /hpf Crossmatch 11/06/20 11/06/20 11/06/20 Range/Units 04:45 04:45 05:15 WBC 12.6 H (3.8-10.6) k/uL RBC 2.31 L (4.30-5.90) m/uL Hgb 7.6 L (13.0-17.5) gm/dL Hct 22.0 L (39.0-53.0) % RDW 19.6 H (11.5-15.5) % Plt Count 80 L (150-450) k/uL Neutrophils # (Manual) 11.80 H (1.3-7.7) k/uL Lymphocytes # (Manual) 0.50 L (1.0-4.8) k/uL ABG pH 7.46 H (7.35-7.45) ABG pO2 75 L (83-108) mmHg ABG HCO3 27 H (21-25) mmol/L ABG Total CO2 28 H (19-24) mmol/L ABG O2 Saturation (94-97) % Chloride 110 H (98-107) mmol/L Creatinine 0.63 L (0.66-1.25) mg/dL Glucose 131 H (74-99) mg/dL POC Glucose (mg/dL) (75-99) mg/dL Calcium 8.0 L (8.4-10.2) mg/dL Alkaline Phosphatase 32 L (38-126) U/L Total Protein 4.6 L (6.3-8.2) g/dL Albumin 2.7 L (3.5-5.0) g/dL Urine Protein (Negative) Urine Blood (Negative) Ur Leukocyte Esterase (Negative) Urine RBC (0-5) /hpf Urine WBC (0-5) /hpf Amorphous Sediment (None) /hpf Urine Bacteria (None) /hpf Hyaline Casts (0-2) /lpf Urine Mucus (None) /hpf Crossmatch 11/06/20 11/06/20 11/06/20 Range/Units 06:08 08:25 08:26 WBC (3.8-10.6) k/uL RBC (4.30-5.90) m/uL Hgb (13.0-17.5) gm/dL Hct (39.0-53.0) % RDW (11.5-15.5) % Plt Count (150-450) k/uL Neutrophils # (Manual) (1.3-7.7) k/uL Lymphocytes # (Manual) (1.0-4.8) k/uL ABG pH (7.35-7.45) ABG pO2 46 L* (83-108) mmHg ABG HCO3 27 H (21-25) mmol/L ABG Total CO2 28 H (19-24) mmol/L ABG O2 Saturation 83.3 L (94-97) % Chloride (98-107) mmol/L Creatinine (0.66-1.25) mg/dL Glucose (74-99) mg/dL POC Glucose (mg/dL) 138 H (75-99) mg/dL Calcium (8.4-10.2) mg/dL Alkaline Phosphatase (38-126) U/L Total Protein (6.3-8.2) g/dL Albumin (3.5-5.0) g/dL Urine Protein 1+ H (Negative) Urine Blood Large H (Negative) Ur Leukocyte Esterase Trace H (Negative) Urine RBC 47 H (0-5) /hpf Urine WBC 16 H (0-5) /hpf Amorphous Sediment Rare H (None) /hpf Urine Bacteria Occasional H (None) /hpf Hyaline Casts 5 H (0-2) /lpf Urine Mucus Rare H (None) /hpf Crossmatch 11/06/20 Range/Units 08:29 WBC (3.8-10.6) k/uL RBC (4.30-5.90) m/uL Hgb (13.0-17.5) gm/dL Hct (39.0-53.0) % RDW (11.5-15.5) % Plt Count (150-450) k/uL Neutrophils # (Manual) (1.3-7.7) k/uL Lymphocytes # (Manual) (1.0-4.8) k/uL ABG pH (7.35-7.45) ABG pO2 (83-108) mmHg ABG HCO3 (21-25) mmol/L ABG Total CO2 (19-24) mmol/L ABG O2 Saturation (94-97) % Chloride (98-107) mmol/L Creatinine (0.66-1.25) mg/dL Glucose (74-99) mg/dL POC Glucose (mg/dL) 146 H (75-99) mg/dL Calcium (8.4-10.2) mg/dL Alkaline Phosphatase (38-126) U/L Total Protein (6.3-8.2) g/dL Albumin (3.5-5.0) g/dL Urine Protein (Negative) Urine Blood (Negative) Ur Leukocyte Esterase (Negative) Urine RBC (0-5) /hpf Urine WBC (0-5) /hpf Amorphous Sediment (None) /hpf Urine Bacteria (None) /hpf Hyaline Casts (0-2) /lpf Urine Mucus (None) /hpf Crossmatch - Imaging and Cardiology Chest x-ray: report reviewed, image reviewed Assessment and Plan Assessment: 1. Severe triple-vessel coronary artery disease, status post three-vessel coronary artery bypass grafting surgery 2. Moderate to severe aortic valve stenosis, status post aortic valve replacement with a #27 mm [place] Inspiris bioprosthetic aortic valve 3. Pulmonary hypertension 4. Known right upper lobe pulmonary nodule, suspicious for malignancy based on PET scan findings 5. COPD with a preoperative FEV1 66% of predicted value and a DLCO 18% of predicted value 6. Known right subclavian artery stenosis 7. History of Hypertension 8. Hyperlipidemia 9. History of coronary artery disease with previous stenting of the right coronary artery 10. Remote history of extensive right upper lobe pneumonia with previous wedge biopsy in 2009 11. Remote history of nicotine dependence, quit smoking over 25 years ago 12. Postoperative anemia and thrombocytopenia, expected given hemodilution and cardiopulmonary bypass 13. Prolonged mechanical ventilator support, secondary to acute respiratory fa ilure with ongoing hypoxemia Plan: 1. Continue to optimize medical management with aspirin, statin, zetia, and beta paul. Will increase beta paul as tolerated. 2. We will send a sputum for Gram stain C&S and a urinalysis with reflex culture. 3. Wean to extubate with ventilator management, Solu-Medrol and bronchodilators management per Dr. Espino's recommendations. Continue to monitor ABGs. 4. Once extubated Will encourage incentive spirometry use 10 times every hour while awake , increase activity as tolerated with PT/OT/cardiac rehab following. 5. Continue to monitor daily labs and chest x-rays. Electrolyte replacement per protocol. No transfusion today. 6. Pain control with current medication regimen. 7. GI/DVT prophylaxis. HIT panel results pending. Continue to hold subcu heparin, platelets are trending up and our 80 today. 8. Insulin management per primary care service. The patient is not diabetic with preoperative hemoglobin A1c 5.4%, needs tight blood sugar control to promote sternal union and prevent infection. 9. Continue mediastinal and left pleural chest tubes for another 24 hours. 10. Continue Espinal catheter for another 24 hours for strict accurate intake and output. Continue to monitor daily weights. 11. Keep right IJ cordis and [place] catheter in place for hemodynamic monitoring. 12. Wean propofol as tolerated for mechanical ventilator weaning. 13. Continue epicardial pacemaker generator to a VVI backup of 50 BPM. 14. Lasix 40 mg IV 1 now. 15. More recommendations to follow based on patient's clinical course. Time with Patient: Greater than 30
[2020-11-06 10:29] LABS: Glucose,Whole Blood 142 mg/dL (75-99)
[2020-11-06 11:38] LABS: Glucose,Whole Blood 129 mg/dL (75-99)
--- NOTE | 2020-11-06 12:26 | P.PN ---
Subjective Patient remains intubated. He has had severe lung disease and his DLCO is 18% of predicted at baseline He underwent coronary artery bypass grafting and valve surgery Breath sounds are reduced bilaterally Heart sounds S1 and S2 are soft and crisp He remains intubated Impression/plan Severe lung disease with reduced DLCO CAD status post CABG Aortic valve replacement, bioprosthetic Clip ligation of left atrial appendage Postoperative anemia and thrombocytopenia Continue ICU care and supportive care for now and hopefully the patient will be extubated in the next few days Objective - Vital Signs Vital signs: Vital Signs Temp 98.6 F 11/06/20 08:00 Pulse 62 11/06/20 11:23 Resp 13 11/06/20 11:00 BP 99/58 11/06/20 11:00 Pulse Ox 97 11/06/20 11:00 Intake & Output 11/05/20 11/06/20 11/06/20 18:59 06:59 18:59 Intake Total 1550.000 996.546 323.530 Output Total 605 565 690 Balance 945.000 431.546 -366.470 Weight 89 kg 92 kg Intake: IV 680 690 230 CO/CI 80 90 30 Lactated Ringers 1,000 ml 600 600 200 @ 50 mls/hr IV .Q20H CINDY Rx#:[id number] Intake, IV Titration 250.000 306.546 93.530 Amount Calcium Gluconate 1 gm In 100 Sodium Chloride 0.9% 100 ml @ 100 mls/hr IVPB ONCE ONE Rx#:[id number] Insulin Regular 100 unit 45.231 9.561 In Sodium Chloride 0.9% 100 ml @ Per Protocol IV .Q0M CINDY Rx#:[id number] ceFAZolin 2 gm In Sodium 50 Chloride 0.9% 50 ml @ 100 mls/hr IVPB Q8HR CINDY Rx# :[id number] propofoL 1,000 mg In 100.000 261.315 83.969 Empty Bag 1 bag @ Titrate IV .Q0M CINDY Rx#: [id number] Blood Product 620 Rc As-1 Unit 310 [id number] Output: Chest Tube Drainage 240 190 40 Mediastinal 90 70 10 medistinal #1 150 120 30 Urine 365 375 650 Other: Voiding Method Indwelling Catheter Indwelling Catheter Indwelling Catheter ABP, PAP, CO, CI - Last Documented Arterial Blood Pressure 109/48 Pulmonary Artery Pressure 46/18 Cardiac Output 5.3 Cardiac Index 2.7 - Labs CBC & Chem 7: 11/06/20 04:45 11/06/20 04:45 Labs: Abnormal Lab Results - Last 24 Hours (Table) 11/05/20 11/05/20 11/05/20 Range/Units 10:49 13:03 15:05 WBC (3.8-10.6) k/uL RBC (4.30-5.90) m/uL Hgb (13.0-17.5) gm/dL Hct (39.0-53.0) % RDW (11.5-15.5) % Plt Count (150-450) k/uL Neutrophils # (Manual) 9.00 H (1.3-7.7) k/uL Lymphocytes # (Manual) 0.98 L (1.0-4.8) k/uL ABG pH (7.35-7.45) ABG pO2 (83-108) mmHg ABG HCO3 (21-25) mmol/L ABG Total CO2 (19-24) mmol/L ABG O2 Saturation (94-97) % Chloride (98-107) mmol/L Creatinine (0.66-1.25) mg/dL Glucose (74-99) mg/dL POC Glucose (mg/dL) 105 H 107 H (75-99) mg/dL Calcium (8.4-10.2) mg/dL Alkaline Phosphatase (38-126) U/L Total Protein (6.3-8.2) g/dL Albumin (3.5-5.0) g/dL Urine Protein (Negative) Urine Blood (Negative) Ur Leukocyte Esterase (Negative) Urine RBC (0-5) /hpf Urine WBC (0-5) /hpf Amorphous Sediment (None) /hpf Urine Bacteria (None) /hpf Hyaline Casts (0-2) /lpf Urine Mucus (None) /hpf 11/05/20 11/05/20 11/05/20 Range/Units 16:12 18:21 20:26 WBC (3.8-10.6) k/uL RBC (4.30-5.90) m/uL Hgb (13.0-17.5) gm/dL Hct (39.0-53.0) % RDW (11.5-15.5) % Plt Count (150-450) k/uL Neutrophils # (Manual) (1.3-7.7) k/uL Lymphocytes # (Manual) (1.0-4.8) k/uL ABG pH (7.35-7.45) ABG pO2 (83-108) mmHg ABG HCO3 (21-25) mmol/L ABG Total CO2 (19-24) mmol/L ABG O2 Saturation (94-97) % Chloride (98-107) mmol/L Creatinine (0.66-1.25) mg/dL Glucose (74-99) mg/dL POC Glucose (mg/dL) 118 H 119 H 108 H (75-99) mg/dL Calcium (8.4-10.2) mg/dL Alkaline Phosphatase (38-126) U/L Total Protein (6.3-8.2) g/dL Albumin (3.5-5.0) g/dL Urine Protein (Negative) Urine Blood (Negative) Ur Leukocyte Esterase (Negative) Urine RBC (0-5) /hpf Urine WBC (0-5) /hpf Amorphous Sediment (None) /hpf Urine Bacteria (None) /hpf Hyaline Casts (0-2) /lpf Urine Mucus (None) /hpf 11/05/20 11/06/20 11/06/20 Range/Units 22:17 00:14 02:05 WBC (3.8-10.6) k/uL RBC (4.30-5.90) m/uL Hgb (13.0-17.5) gm/dL Hct (39.0-53.0) % RDW (11.5-15.5) % Plt Count (150-450) k/uL Neutrophils # (Manual) (1.3-7.7) k/uL Lymphocytes # (Manual) (1.0-4.8) k/uL ABG pH (7.35-7.45) ABG pO2 (83-108) mmHg ABG HCO3 (21-25) mmol/L ABG Total CO2 (19-24) mmol/L ABG O2 Saturation (94-97) % Chloride (98-107) mmol/L Creatinine (0.66-1.25) mg/dL Glucose (74-99) mg/dL POC Glucose (mg/dL) 137 H 130 H 132 H (75-99) mg/dL Calcium (8.4-10.2) mg/dL Alkaline Phosphatase (38-126) U/L Total Protein (6.3-8.2) g/dL Albumin (3.5-5.0) g/dL Urine Protein (Negative) Urine Blood (Negative) Ur Leukocyte Esterase (Negative) Urine RBC (0-5) /hpf Urine WBC (0-5) /hpf Amorphous Sediment (None) /hpf Urine Bacteria (None) /hpf Hyaline Casts (0-2) /lpf Urine Mucus (None) /hpf 11/06/20 11/06/20 11/06/20 Range/Units 04:41 04:45 04:45 WBC 12.6 H (3.8-10.6) k/uL RBC 2.31 L (4.30-5.90) m/uL Hgb 7.6 L (13.0-17.5) gm/dL Hct 22.0 L (39.0-53.0) % RDW 19.6 H (11.5-15.5) % Plt Count 80 L (150-450) k/uL Neutrophils # (Manual) 11.80 H (1.3-7.7) k/uL Lymphocytes # (Manual) 0.50 L (1.0-4.8) k/uL ABG pH (7.35-7.45) ABG pO2 (83-108) mmHg ABG HCO3 (21-25) mmol/L ABG Total CO2 (19-24) mmol/L ABG O2 Saturation (94-97) % Chloride 110 H (98-107) mmol/L Creatinine 0.63 L (0.66-1.25) mg/dL Glucose 131 H (74-99) mg/dL POC Glucose (mg/dL) 141 H (75-99) mg/dL Calcium 8.0 L (8.4-10.2) mg/dL Alkaline Phosphatase 32 L (38-126) U/L Total Protein 4.6 L (6.3-8.2) g/dL Albumin 2.7 L (3.5-5.0) g/dL Urine Protein (Negative) Urine Blood (Negative) Ur Leukocyte Esterase (Negative) Urine RBC (0-5) /hpf Urine WBC (0-5) /hpf Amorphous Sediment (None) /hpf Urine Bacteria (None) /hpf Hyaline Casts (0-2) /lpf Urine Mucus (None) /hpf 11/06/20 11/06/20 11/06/20 Range/Units 05:15 06:08 08:25 WBC (3.8-10.6) k/uL RBC (4.30-5.90) m/uL Hgb (13.0-17.5) gm/dL Hct (39.0-53.0) % RDW (11.5-15.5) % Plt Count (150-450) k/uL Neutrophils # (Manual) (1.3-7.7) k/uL Lymphocytes # (Manual) (1.0-4.8) k/uL ABG pH 7.46 H (7.35-7.45) ABG pO2 75 L 46 L* (83-108) mmHg ABG HCO3 27 H 27 H (21-25) mmol/L ABG Total CO2 28 H 28 H (19-24) mmol/L ABG O2 Saturation 83.3 L (94-97) % Chloride (98-107) mmol/L Creatinine (0.66-1.25) mg/dL Glucose (74-99) mg/dL POC Glucose (mg/dL) 138 H (75-99) mg/dL Calcium (8.4-10.2) mg/dL Alkaline Phosphatase (38-126) U/L Total Protein (6.3-8.2) g/dL Albumin (3.5-5.0) g/dL Urine Protein (Negative) Urine Blood (Negative) Ur Leukocyte Esterase (Negative) Urine RBC (0-5) /hpf Urine WBC (0-5) /hpf Amorphous Sediment (None) /hpf Urine Bacteria (None) /hpf Hyaline Casts (0-2) /lpf Urine Mucus (None) /hpf 11/06/20 11/06/20 11/06/20 Range/Units 08:26 08:29 10:09 WBC (3.8-10.6) k/uL RBC (4.30-5.90) m/uL Hgb (13.0-17.5) gm/dL Hct (39.0-53.0) % RDW (11.5-15.5) % Plt Count (150-450) k/uL Neutrophils # (Manual) (1.3-7.7) k/uL Lymphocytes # (Manual) (1.0-4.8) k/uL ABG pH (7.35-7.45) ABG pO2 (83-108) mmHg ABG HCO3 (21-25) mmol/L ABG Total CO2 (19-24) mmol/L ABG O2 Saturation (94-97) % Chloride (98-107) mmol/L Creatinine (0.66-1.25) mg/dL Glucose (74-99) mg/dL POC Glucose (mg/dL) 146 H 142 H (75-99) mg/dL Calcium (8.4-10.2) mg/dL Alkaline Phosphatase (38-126) U/L Total Protein (6.3-8.2) g/dL Albumin (3.5-5.0) g/dL Urine Protein 1+ H (Negative) Urine Blood Large H (Negative) Ur Leukocyte Esterase Trace H (Negative) Urine RBC 47 H (0-5) /hpf Urine WBC 16 H (0-5) /hpf Amorphous Sediment Rare H (None) /hpf Urine Bacteria Occasional H (None) /hpf Hyaline Casts 5 H (0-2) /lpf Urine Mucus Rare H (None) /hpf 11/06/20 Range/Units 11:37 WBC (3.8-10.6) k/uL RBC (4.30-5.90) m/uL Hgb (13.0-17.5) gm/dL Hct (39.0-53.0) % RDW (11.5-15.5) % Plt Count (150-450) k/uL Neutrophils # (Manual) (1.3-7.7) k/uL Lymphocytes # (Manual) (1.0-4.8) k/uL ABG pH (7.35-7.45) ABG pO2 (83-108) mmHg ABG HCO3 (21-25) mmol/L ABG Total CO2 (19-24) mmol/L ABG O2 Saturation (94-97) % Chloride (98-107) mmol/L Creatinine (0.66-1.25) mg/dL Glucose (74-99) mg/dL POC Glucose (mg/dL) 129 H (75-99) mg/dL Calcium (8.4-10.2) mg/dL Alkaline Phosphatase (38-126) U/L Total Protein (6.3-8.2) g/dL Albumin (3.5-5.0) g/dL Urine Protein (Negative) Urine Blood (Negative) Ur Leukocyte Esterase (Negative) Urine RBC (0-5) /hpf Urine WBC (0-5) /hpf Amorphous Sediment (None) /hpf Urine Bacteria (None) /hpf Hyaline Casts (0-2) /lpf Urine Mucus (None) /hpf
--- NOTE | 2020-11-06 14:17 | P.PN ---
Progress Note - Text Progress Note Date: 11/06/20 - Chief Complaint Aortic valve replacement, 3 vessel bypass History of presenting complaint: This is a pleasant 75-year-old patient of Dr. 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 , Hypertension, hyperlipidemia and early emphysema. Patient today has undergone bioprosthetic aortic valve replacement for aortic stenosis and triple-vessel bypass. Currently in the ICU admitted. FiO2 100 and a PEEP of 10. As to mediastinotomy 1 left pleural chest tube. Drips include nitroglycerin, debridement, Primacor, insulin, IV fluids. Telemetry: sinus rhythm. November 05: ICU: Intubated. FiO2 60, PEEP of 12. Chest tubes in place. Drips included propofol, insulin. Telemetry shows sinus rhythm. ET tube and OG tube in place. November 06: ICU: Intubated. FiO2 70 the PEEP of 12. Some endotracheal secretions. Some bloody output through the chest tubes. Drips included propofol and insulin. Patient sedated. Sinus rhythm. Review of systems: Patient intubated Past medical history to include: Hypertension, hyperlipidemia, coronary artery stent, elevated PSA, emphysema, moderate aortic stenosis Social history: Lives with his son. Patient smoked about a pack a day for about 25 years of more stopped about 30 years ago. Alcohol occasional. Family history: Colon cancer Physical examination: VITAL SIGNS: 99.3, 70, 16, 109/60, 96% on the ventilator GENERAL: , laying in bed intubated EYES: Pupils equal. Conjunctiva normal. HEENT: External appearance of nose and ears normal, oral cavity-endotracheal tube, OG tube NECK: JVD unable to assess; masses not palpable. HEART: First and second heart sounds are normal; no edema. LUNGS: Respiratory rate increased; decreased breath sounds. 2 mediastinotomy and 1 left pleural chest tube ABDOMEN: Soft, nontender, liver spleen not palpable, no masses palpable. PSYCH: Patient sedated. NEUROLOGICAL: Cranial nerves grossly intact; no facial asymmetry, MUSCULAR schedule: Evidence of OA especially in the hands INVESTIGATIONS, reviewed in the clinical context: November 06: WBC 12.6 hemoglobin 7.6 platelets 18 potassium 4 creatinine 0.63 November 05: WBC 10.9 hemoglobin 8.2 platelets 70 White count 11.1 hemoglobin 7 platelets 128 Previous labs: 11/03/2020: WBC 6.9 hemoglobin 17.8 platelets 238 potassium 4.3 creatinine 0.75 Coronavirus [PCR]: Not detected Computed tomography scan chest without contrast [10/25/2020]: Bilobed nodule at the right apex 1.2 x 1.5 cm. Some congestion stranding. 2-D echocardiogram [September 2019] EF 50-45%. Hypokinetic vázquez. Moderate aortic stenosis. Moderate mitral stenosis. Assessment and plan: -Aortic valve replacement with a bioprosthetic valve and triple-vessel coronary artery disease Patient's current drips include Diprivan,, insulin, IV fluids -Acute hypoxic respiratory failure with ventilator support: Slow to respond Currently on 70 % FiO2 and a PEEP of 12 intubated -Coronary artery disease Aspirin, Lipitor, Lopressor 12.5 twice a day -Essential hypertension Lopressor 12.5 twice a day -Hyperlipidemia Lipitor 80 mg daily at bedtime, -Primary osteoarthritis Pain medication as needed -Emphysema in a previous smoker DuoNeb 4 times a day -Moderate mitral stenosis Follow clinically -Right lung apex bilobed nodule 1.2 x 1.5 cm. Being followed by pulmonary -Acute postprocedure blood loss anemia, as expected from surgery Follow H&H -Acute thrombocytopenia, dilutional Follow CBC Remains on the ventilator. Drips included propofol, insulin. Sinus rhythm. OG tube. Chest tubes in place. Follow closely. Thank you Dr. Townsend
[2020-11-06 16:15] LABS: Glucose,Whole Blood 140 mg/dL (75-99)
[2020-11-06] MEDS: ATORVASTATIN 80 MG TAB PO SCH (19:54)
[2020-11-06 19:55] LABS: Glucose,Whole Blood 144 mg/dL (75-99)
[2020-11-06] MEDS: EZETIMIBE 10 MG TAB PO SCH (19:55)
[2020-11-06] MEDS: SENNOSIDES-DOCUSATE SODIUM 1 EACH TAB PO SCH (19:55)
[2020-11-06] MEDS: DEXTROSE 5% IN WATER 100 ML with AMIODARONE 150 MG IV PRN ×2 (20:18→20:19)
[2020-11-06 22:04] LABS: Glucose,Whole Blood 154 mg/dL (75-99)
[2020-11-07] MEDS: methylPREDNISolone SOD SUCCI 40 MG/ML 1 ML VIAL IV SCH ×4 (00:33→23:58)
[2020-11-07 00:37] LABS: Glucose,Whole Blood 168 mg/dL (75-99)
[2020-11-07] MEDS: AMIODARONE 450 MG in DEXTROSE 5% IN WATER 250 ML IV PRN ×4 (01:27→15:58)
[2020-11-07 02:14] LABS: Glucose,Whole Blood 167 mg/dL (75-99)
[2020-11-07] MEDS: INSULIN REGULAR 100 UNIT in SODIUM CHLORIDE 0.9% 100 ML IV SCH (03:38)
[2020-11-07] MEDS: LACTATED RINGERS 1,000 ML IV SCH (03:40)
[2020-11-07 04:44] LABS: Glucose,Whole Blood 165 mg/dL (75-99)
[2020-11-07 05:00] LABS: Anisocytosis Slight; HCT 22.8 % (39.0-53.0); HGB 7.9 gm/dL (13.0-17.5); MCH 33.4 pg (25.0-35.0); MCHC 34.6 g/dL (31.0-37.0); MCV 96.5 fL (80.0-100.0); Macrocytosis Slight; Mean Platelet Volume 9.3; RBC 2.36 m/uL (4.30-5.90); RDW 19.1 % (11.5-15.5)
[2020-11-07 05:02] LABS: Platelet Count 82 k/uL (150-450)
[2020-11-07 05:23] LABS: Band Neutrophils % 10 %; Lymphocytes # (M) 0.38 k/uL (1.0-4.8); Monocytes # (M) 0.25 k/uL (0-1.0); Neutrophils % (M) 85 %; Nucleated Red Blood Cells 1 /100 WBC (0-0); Total Cells Counted 100; WBC 12.7 k/uL (3.8-10.6)
[2020-11-07 05:27] LABS: ALT 14 U/L (4-49); AST 37 U/L (17-59); African American GFR (CKD) >90 (>60 ml/min/1.73 sqM); Albumin 2.6 g/dL (3.5-5.0); Alkaline Phosphatase 40 U/L (38-126); Anion Gap 6 mmol/L; Blood Urea Nitrogen 21 mg/dL (9-20); Carbon Dioxide 26 mmol/L (22-30); Chloride 107 mmol/L (98-107); Glucose 152 mg/dL (74-99); Non-African American GFR(CKD) >90 (>60 ml/min/1.73 sqM); Sodium 139 mmol/L (137-145); Total Bilirubin 0.7 mg/dL (0.2-1.3); Total Protein 4.8 g/dL (6.3-8.2)
[2020-11-07 05:30] LABS: ABG Base Excess 3.3 mmol/L; ABG HCO3 27 mmol/L (21-25); ABG Oxygen Saturation 96.2 % (94-97); ABG PCO2 38 mmHg (35-45); ABG PH 7.46 (7.35-7.45); ABG PO2 76 mmHg (83-108); ABG TCO2 28 mmol/L (19-24); Allen Test Performed? Yes
[2020-11-07 06:14] LABS: Glucose,Whole Blood 156 mg/dL (75-99)
[2020-11-07] MEDS: IPRATROPIUM-ALBUTEROL 3 ML NEB INHALATION SCH ×4 (07:16→19:52)
--- NOTE | 2020-11-07 07:28 | XR ---
EXAMINATION TYPE: XR chest 1V portable DATE OF EXAM: 11/07/2020 COMPARISON: 11/06/2020 HISTORY: post op cardiac surgery FINDINGS: Indwelling tubes and catheters are unchanged. No evidence for pneumothorax. No change in bibasilar opacities. Stable appearance of the cardio-mediastinal structures at this time. IMPRESSION: 1. Stable portable chest. Clinical correlation and follow up until resolution is recommended.
[2020-11-07 08:21] LABS: Glucose,Whole Blood 146 mg/dL (75-99)
[2020-11-07] MEDS: ASCORBIC ACID 500 MG TAB PO SCH (08:23)
[2020-11-07] MEDS: ASPIRIN 325 MG TAB PO SCH (08:23)
[2020-11-07] MEDS: HYDROcodone/APAP 5-325MG 1 EACH TAB PO PRN ×2 (08:23→17:20)
[2020-11-07] MEDS: MULTIVITAMINS, THERA 1 EACH TAB PO SCH (08:23)
[2020-11-07] MEDS: CHLORHEXIDINE GLUCONATE 15 ML CUP MUCOUS MEM SCH ×2 (08:24→20:24)
[2020-11-07] MEDS: PANTOPRAZOLE 40 MG/10 ML VIAL IVP SCH (08:24)
[2020-11-07] MEDS ORDERED: FUROSEMIDE 10 MG/ML 4 ML VIAL IV STA (08:30)
[2020-11-07] MEDS: METOPROLOL TARTRATE 25 MG TAB PO SCH ×2 (09:11→20:24)
[2020-11-07] MEDS: AMIODARONE 200 MG TAB OG-TUBE SCH ×3 (09:11→20:23)
--- NOTE | 2020-11-07 09:37 | P.PN ---
Subjective Progress Note Date: 11/07/20 Principal diagnosis: Severe triple vessel coronary artery disease, moderate to severe aortic valve stenosis, pulmonary hypertension and right upper lobe pulmonary nodule, suspicious for malignancy based on PET scan findings. Past medical history significant for hypertension, hyperlipidemia, right subclavian artery stenosis, coronary artery disease with previous stenting of the right coronary artery, history of right upper lobe pneumonia, COPD with preoperative FEV1 showing a predicted value of 66%, DLCO 18% of predicted value and remote history of nicotine dependence in which he quit smoking around 25 years ago. POD #3 aortic valve replacement with a 27 mm De León Inspiris bioprosthetic aortic valve, coronary artery bypass grafting 3 with a reverse saphenous vein graft off the aorta to the circumflex coronary artery, the left anterior descending coronary artery and the posterior descending coronary artery with bilateral lower extremity greater saphenous vein endoscopic harvesting. Clip ligation of the left atrial appendage with a 35 mm Atriclip, intraoperative transesophageal echocardiogram and graft flow measurement using the [employer] system. Postoperative acute blood loss anemia and thrombocytopenia, expected given hemodilution and cardiopulmonary bypass. Prolonged mechanical ventilation, secondary acute hypoxic respiratory failure with ongoing hypoxemia, preoperative FEV1 66% of predicted value and DLCO 18% of predicted value. Paroxysmal atrial fibrillation, a known common occurrence after cardiac surgery, currently in normal sinus rhythm. The patient was seen in follow-up today 11/07/2020 at his bedside in the intensive care unit. Currently he is lying in bed, remain sedated on propofol drip at 30 mcg/kg/m, remains intubated and is in no acute distress. The patient does move all 4 extremities with verbal command despite the propofol drip. Last evening around 8 PM the patient went into atrial fibrillation and was started on the amiodarone protocol, currently the amiodarone is infusing at 0.5 mg/m. Bedside telemetry showing normal sinus rhythm heart rate 72 BPM. He remains intubated with current mechanical ventilator settings assist control 24, TV 450, FiO2 60% and a PEEP of 12. ABG results this morning show a pH of 7.46, pCO2 38, pO2 75, HCO3 27, oxygen saturation 96.4, base excess 3.5. Mediastinal and left pleural chest tubes remain in place to low continuous wall suction -20 cm H2O. No air leak is present. Mediastinal chest tube drained 90 mL output in the last 8 hours and 300 mL output in the last 24 hours. Mediastinal and left pleural chest tube drained 60 mL output in the last 8 hours and 200 mL output in the last 24 hours. Right IJ Cordis with Eagle-Magdaleno catheter remains in place with current hemodynamic showing a cardiac output 4.6, cardiac index 2.3, PA pressures 57/29 and a CVP 10 mmHg. He remained hemodynamically stable and is currently on no inotropic or pressor support. He has been afebrile the last 24 hours. Laboratory results this morning show a WBC count 12.7, hemoglobin 7.9, hematocrit 22.8, platelets 82, positive pain count of 10, neutrophils 12.0, lymphocytes 0.38, sodium 139, potassium 4.0, BUN 21, and creatinine 0.73. Due to the patient's positive bandemia a sputum and urine culture was sent yesterday with results pending. Objective - Vital Signs Vital signs: Vital Signs Temp 98.2 F 11/07/20 08:00 Pulse 70 11/07/20 08:00 Resp 24 11/07/20 08:00 BP 112/79 11/07/20 08:00 Pulse Ox 99 11/07/20 08:00 Intake & Output 11/06/20 11/07/20 11/07/20 18:59 06:59 18:59 Intake Total 568.200 3115.150 528.684 Output Total 1130 590 170 Balance -331.462 533.150 358.684 Weight 93.2 kg Intake: IV 600 640 120 CO/CI 50 40 20 Lactated Ringers 1,000 ml 550 600 100 @ 50 mls/hr IV .Q20H CINDY Rx#:[id number] Intake, IV Titration 178.538 283.150 48.684 Amount Insulin Regular 100 unit 9.561 29.652 13.584 In Sodium Chloride 0.9% 100 ml @ Per Protocol IV .Q0M CINDY Rx#:[id number] propofoL 1,000 mg In 168.977 253.498 35.100 Empty Bag 1 bag @ Titrate IV .Q0M CINDY Rx#: [id number] Tube Feeding 20 110 20 Blood Product 310 Rc As-1 Unit 310 [id number] Other 90 30 Output: Chest Tube Drainage 110 70 80 Mediastinal 40 20 30 medistinal #1 70 50 50 Urine 1020 520 90 Other: Voiding Method Indwelling Catheter Indwelling Catheter ABP, PAP, CO, CI - Last Documented Arterial Blood Pressure 121/56 Pulmonary Artery Pressure 62/31 Cardiac Output 4.7 Cardiac Index 2.4 - Exam CONSTITUTIONAL: Lying in bed in the intensive care unit, remain sedated on propofol drip at 30 mcg/kg/m, appears comfortable, cooperative, no apparent acute distress. HEENT: Neck is supple, no JVD, no lymphadenopathy. Right IJ Cordis and Eagle- Magdaleno catheter in place and functioning. RESPIRATORY: Lungs sounds essentially clear throughout, diminished to his bilateral bases. Respirations are symmetrical and nonlabored with mechanical ventilator support. Current mechanical ventilator settings are as follows, assist-control 24, TV 450, FiO2 60% and a PEEP of 12. Thin serosanguineous secretions from his ET tube. CARDIOVASCULAR: Regular rhythm and rate. S1 and S2 present, negative for S3, gallop or murmur. Sternum is stable. Palpable peripheral pulses bilaterally, no edema to his bilateral lower extremities. Heart hugger in place. Knee- high ELEONORA hose and sequential compression devices in place to his bilateral lower extremities. Bedside telemetry showing normal sinus rhythm with a right bundle branch block heart rate 67 bpm, occasional atrial fibrillation. GASTROINTESTINAL: Abdomen soft, nontender, nondistended. Active bowel sounds present 4 quadrants. No guarding or rigidity. OG tube in place with vital high-protein to feeding infusing at 10 mL per hour and automatic water flushes. GENITOURINARY: Espinal present for accurate I&O, draining clear yellow urine. Output 360 mL in the last 8 hours. INTEGUMENTARY: Skin is warm and dry with no evidence of clubbing or cyanosis. Midline sternal incision clean dry and well approximated, covered with dry intact dressing. Bilateral lower extremity EVH sites well approximated without redness or drainage. NEUROLOGIC: Sedated on propofol drip at 30 mcg/kg/m. PERRLA. No focal deficits. MUSKULOSKELETAL: Able to move all extremities, generalized weakness. PSYCHIATRIC: Unable to accurately assess at this time as the patient remains sedated on propofol drip and remains intubated with mechanical ventilator support. INVASIVE LINES AND TUBES: Mediastinal/left pleural chest tubes present and connected to low continuous wall suction, no air leaks present. Mediastinal tube with 40 mL of thin serosanguineous drainage overnight, 150 mL output in the last 24 hours. Left/mediastinal pleural chest tubes with 10 mL of thin serosanguineous drainage overnight, 70 mL output in the last 24 hours. Atrial and ventricular epicardial pacemaker wires present, connected to bedside pacemaker generator, VVI mode with a backup of 50 BPM. Right internal jugular Eagle/Cordis, right radial arterial line present. Last CO 4.6, CI 2.3, PA 57/29 and CVP 10 mmHg. - Allied health notes Allied health notes reviewed: nursing - Labs CBC & Chem 7: 11/07/20 04:40 11/07/20 04:40 Labs: Abnormal Lab Results - Last 24 Hours (Table) 10/24/20 11/06/20 11/06/20 Range/Units 13:00 08:26 10:09 WBC (3.8-10.6) k/uL RBC (4.30-5.90) m/uL Hgb (13.0-17.5) gm/dL Hct (39.0-53.0) % RDW (11.5-15.5) % Plt Count (150-450) k/uL Neutrophils # (Manual) (1.3-7.7) k/uL Lymphocytes # (Manual) (1.0-4.8) k/uL Nucleated RBCs (0-0) /100 WBC ABG pH (7.35-7.45) ABG pO2 (83-108) mmHg ABG HCO3 (21-25) mmol/L ABG Total CO2 (19-24) mmol/L BUN (9-20) mg/dL Glucose (74-99) mg/dL POC Glucose (mg/dL) 142 H (75-99) mg/dL Calcium (8.4-10.2) mg/dL Total Protein (6.3-8.2) g/dL Albumin (3.5-5.0) g/dL Urine Protein 1+ H (Negative) Urine Blood Large H (Negative) Ur Leukocyte Esterase Trace H (Negative) Urine RBC 47 H (0-5) /hpf Urine WBC 16 H (0-5) /hpf Amorphous Sediment Rare H (None) /hpf Urine Bacteria Occasional H (None) /hpf Hyaline Casts 5 H (0-2) /lpf Urine Mucus Rare H (None) /hpf Crossmatch See Detail 11/06/20 11/06/20 11/06/20 Range/Units 11:37 16:09 19:53 WBC (3.8-10.6) k/uL RBC (4.30-5.90) m/uL Hgb (13.0-17.5) gm/dL Hct (39.0-53.0) % RDW (11.5-15.5) % Plt Count (150-450) k/uL Neutrophils # (Manual) (1.3-7.7) k/uL Lymphocytes # (Manual) (1.0-4.8) k/uL Nucleated RBCs (0-0) /100 WBC ABG pH (7.35-7.45) ABG pO2 (83-108) mmHg ABG HCO3 (21-25) mmol/L ABG Total CO2 (19-24) mmol/L BUN (9-20) mg/dL Glucose (74-99) mg/dL POC Glucose (mg/dL) 129 H 140 H 144 H (75-99) mg/dL Calcium (8.4-10.2) mg/dL Total Protein (6.3-8.2) g/dL Albumin (3.5-5.0) g/dL Urine Protein (Negative) Urine Blood (Negative) Ur Leukocyte Esterase (Negative) Urine RBC (0-5) /hpf Urine WBC (0-5) /hpf Amorphous Sediment (None) /hpf Urine Bacteria (None) /hpf Hyaline Casts (0-2) /lpf Urine Mucus (None) /hpf Crossmatch 11/06/20 11/07/20 11/07/20 Range/Units 22:03 00:36 02:03 WBC (3.8-10.6) k/uL RBC (4.30-5.90) m/uL Hgb (13.0-17.5) gm/dL Hct (39.0-53.0) % RDW (11.5-15.5) % Plt Count (150-450) k/uL Neutrophils # (Manual) (1.3-7.7) k/uL Lymphocytes # (Manual) (1.0-4.8) k/uL Nucleated RBCs (0-0) /100 WBC ABG pH (7.35-7.45) ABG pO2 (83-108) mmHg ABG HCO3 (21-25) mmol/L ABG Total CO2 (19-24) mmol/L BUN (9-20) mg/dL Glucose (74-99) mg/dL POC Glucose (mg/dL) 154 H 168 H 167 H (75-99) mg/dL Calcium (8.4-10.2) mg/dL Total Protein (6.3-8.2) g/dL Albumin (3.5-5.0) g/dL Urine Protein (Negative) Urine Blood (Negative) Ur Leukocyte Esterase (Negative) Urine RBC (0-5) /hpf Urine WBC (0-5) /hpf Amorphous Sediment (None) /hpf Urine Bacteria (None) /hpf Hyaline Casts (0-2) /lpf Urine Mucus (None) /hpf Crossmatch 11/07/20 11/07/20 11/07/20 Range/Units 04:40 04:40 04:40 WBC 12.7 H (3.8-10.6) k/uL RBC 2.36 L (4.30-5.90) m/uL Hgb 7.9 L (13.0-17.5) gm/dL Hct 22.8 L (39.0-53.0) % RDW 19.1 H (11.5-15.5) % Plt Count 82 L (150-450) k/uL Neutrophils # (Manual) 12.00 H (1.3-7.7) k/uL Lymphocytes # (Manual) 0.38 L (1.0-4.8) k/uL Nucleated RBCs 1 H (0-0) /100 WBC ABG pH (7.35-7.45) ABG pO2 (83-108) mmHg ABG HCO3 (21-25) mmol/L ABG Total CO2 (19-24) mmol/L BUN 21 H (9-20) mg/dL Glucose 152 H (74-99) mg/dL POC Glucose (mg/dL) 165 H (75-99) mg/dL Calcium 8.0 L (8.4-10.2) mg/dL Total Protein 4.8 L (6.3-8.2) g/dL Albumin 2.6 L (3.5-5.0) g/dL Urine Protein (Negative) Urine Blood (Negative) Ur Leukocyte Esterase (Negative) Urine RBC (0-5) /hpf Urine WBC (0-5) /hpf Amorphous Sediment (None) /hpf Urine Bacteria (None) /hpf Hyaline Casts (0-2) /lpf Urine Mucus (None) /hpf Crossmatch 11/07/20 11/07/20 11/07/20 Range/Units 05:26 06:12 08:02 WBC (3.8-10.6) k/uL RBC (4.30-5.90) m/uL Hgb (13.0-17.5) gm/dL Hct (39.0-53.0) % RDW (11.5-15.5) % Plt Count (150-450) k/uL Neutrophils # (Manual) (1.3-7.7) k/uL Lymphocytes # (Manual) (1.0-4.8) k/uL Nucleated RBCs (0-0) /100 WBC ABG pH 7.46 H (7.35-7.45) ABG pO2 76 L (83-108) mmHg ABG HCO3 27 H (21-25) mmol/L ABG Total CO2 28 H (19-24) mmol/L BUN (9-20) mg/dL Glucose (74-99) mg/dL POC Glucose (mg/dL) 156 H 146 H (75-99) mg/dL Calcium (8.4-10.2) mg/dL Total Protein (6.3-8.2) g/dL Albumin (3.5-5.0) g/dL Urine Protein (Negative) Urine Blood (Negative) Ur Leukocyte Esterase (Negative) Urine RBC (0-5) /hpf Urine WBC (0-5) /hpf Amorphous Sediment (None) /hpf Urine Bacteria (None) /hpf Hyaline Casts (0-2) /lpf Urine Mucus (None) /hpf Crossmatch Microbiology - Last 24 Hours (Table) 11/06/20 08:14 Sputum Culture - Preliminary Sputum 11/06/20 08:26 Urine Culture - Preliminary Urine,Voided - Imaging and Cardiology Chest x-ray: report reviewed, image reviewed Assessment and Plan Assessment: 1. Severe triple-vessel coronary artery disease, status post three-vessel coronary artery bypass grafting surgery 2. Moderate to severe aortic valve stenosis, status post aortic valve replacement with a #27 mm De Le[place] Inspiris bioprosthetic aortic valve 3. Pulmonary hypertension 4. Known right upper lobe pulmonary nodule, suspicious for malignancy based on PET scan findings 5. COPD with a preoperative FEV1 66% of predicted value and a DLCO 18% of predicted value 6. Known right subclavian artery stenosis 7. History of Hypertension 8. Hyperlipidemia 9. History of coronary artery disease with previous stenting of the right coronary artery 10. Remote history of extensive right upper lobe pneumonia with previous wedge biopsy in 2009 11. Remote history of nicotine dependence, quit smoking over 25 years ago 12. Postoperative anemia and thrombocytopenia, expected given hemodilution and cardiopulmonary bypass 13. Prolonged mechanical ventilator support, secondary to acute respiratory failure with ongoing hypoxemia 14. Paroxysmal atrial fibrillation, a known common occurrence after cardiac surgery, currently in normal sinus rhythm Plan: 1. Continue to optimize medical management with aspirin, statin, zetia, and beta paul. Will increase metoprolol tartrate 25 mg per OG tube twice a day. 2. Sputum culture and urine culture results remain pending, we will continue to follow closely. 3. Wean to extubate with ventilator management, Solu-Medrol and bronchodilators management per Dr. Espino's recommendations. Continue to monitor ABGs. 4. Once extubated encourage incentive spirometry use 10 times every hour while awake , increase activity as tolerated with PT/OT/cardiac rehab following. 5. Continue to monitor daily labs and chest x-rays. Electrolyte replacement per protocol. No transfusion today. 6. Pain control with current medication regimen. 7. GI/DVT prophylaxis. HIT panel results pending. Continue to hold subcu heparin, platelets are trending up and are 82 today. 8. Insulin management per primary care service. The patient is not diabetic with preoperative hemoglobin A1c 5.4%, needs tight blood sugar control to promote sternal union and prevent infection. 9. Remove right femoral arterial line after left radial arterial line has been placed. 10. Continue Espinal catheter for another 24 hours for strict accurate intake and output. Continue to monitor daily weights. 11. Keep right IJ cordis and Eagle-Magdaleno catheter in place for hemodynamic monitoring. 12. Wean propofol as tolerated for mechanical ventilator weaning. 13. Continue epicardial pacemaker generator to a VVI backup of 50 BPM. 14. Lasix 40 mg IV 1 now. 15. We will remove his mediastinal chest tubes today, keep his left pleural chest tube in place to low continuous wall suction -20 cm H2O. 16. Continue tube feedings, increase to feeding goal rate per dietitian's recommendations. 17. More recommendations to follow based on patient's clinical course. Time with Patient: Greater than 30
[2020-11-07 10:23] LABS: Glucose,Whole Blood 158 mg/dL (75-99)
--- NOTE | 2020-11-07 10:47 | P.PN ---
Subjective Progress Note Date: 11/07/20 Principal diagnosis: Acute hypoxic respiratory failure, postop CABG On today's evaluation on 11/07/2020 patient is seen in the intensive care unit, sedated and intubated, on assist-control mode of ventilation, with a rate of 24, M is 450, FiO2 of 60% and PEEP of 12. This morning his blood gases showed pO2 of 76, pCO2 of 38, and pH is 7.46, today's chest x-ray has been reviewed showing no evidence of pneumothorax, mild scattered ulnar edema, and left lower lobe atelectasis. Patient received a dose of IV Lasix yesterday, however he is still in +200 mL fluid balance over the last 24 hours, he was given an additional dose of IV Lasix this morning per CT surgery. Yesterday an attempt was made to wean down FiO2 however patient's FiO2 down to 50%, however follow-up blood gas showed severe worsening of oxygenation, and pO2 of 46%. His PEEP was increased to 12, and FiO2 at 60%. In addition patient went into A. fib with RVR last night, he was started on amiodarone infusion which is currently infusing at 0.5 mg/m. He is on Diprivan at 40 mics per kilo per minute, lactated Ringer's at 50 ML per hour. Insulin at 3 units per hour. Currently patient remains in A. fib with a better controlled rate at 73 BPM, blood pressure is 122/54, PA pressures 61/31, CVP is 10, article output is 4.7, cardiac index is 2.4. Patient has one mediastinal and one mediastinal chest tube connected to left pleural chest tubes with minimal outputs overnight, no evidence of air leak noted. Epicardial wires are in place, grounded to the chest. Currently not on any anticoagulation, e xcept for full dose aspirin 325 mg. Today's platelet count is 82, HIT antibodies have been sent and are pending right now, as today's blood work has been reviewed showing white blood cell, 12.7, hemoglobin is 7.9, actually lites are within normal limits, B1 is 21 creatinine 0.73. Patient did receive multiple blood products in the postoperative period, 3 units of packed red blood cells, 4 units of FFP, 1 unit of cryoprecipitate, and 1 unit of platelets. There has been no evidence of active bleeding, minimal output from the chest tubes. Objective - Vital Signs Vital signs: Vital Signs Temp 98.2 F 11/07/20 08:00 Pulse 70 11/07/20 08:00 Resp 24 11/07/20 08:00 BP 112/79 11/07/20 08:00 Pulse Ox 99 11/07/20 08:00 Intake & Output 11/06/20 11/07/20 11/07/20 18:59 06:59 18:59 Intake Total 304.591 3940.150 528.684 Output Total 1130 590 170 Balance -331.462 533.150 358.684 Weight 93.2 kg Intake: IV 600 640 120 CO/CI 50 40 20 Lactated Ringers 1,000 ml 550 600 100 @ 50 mls/hr IV .Q20H CINDY Rx#:[id number] Intake, IV Titration 178.538 283.150 48.684 Amount Insulin Regular 100 unit 9.561 29.652 13.584 In Sodium Chloride 0.9% 100 ml @ Per Protocol IV .Q0M CINDY Rx#:[id number] propofoL 1,000 mg In 168.977 253.498 35.100 Empty Bag 1 bag @ Titrate IV .Q0M CINDY Rx#: [id number] Tube Feeding 20 110 20 Blood Product 310 Rc As-1 Unit 310 [id number] Other 90 30 Output: Chest Tube Drainage 110 70 80 Mediastinal 40 20 30 medistinal #1 70 50 50 Urine 1020 520 90 Other: Voiding Method Indwelling Catheter Indwelling Catheter ABP, PAP, CO, CI - Last Documented Arterial Blood Pressure 121/56 Pulmonary Artery Pressure 62/31 Cardiac Output 4.7 Cardiac Index 2.4 - Exam GENERAL EXAM: The, intubated, 75-year-old white male, on assist-control mode of ventilation, FiO2 of 60% and PEEP of 12 comfortable in no apparent distress. HEAD: Normocephalic/atraumatic. EYES: Normal reaction of pupils, equal size. Conjunctiva pink, sclera white. NOSE: Clear with pink turbinates. THROAT: No erythema or exudates. NECK: No masses, no JVD, no thyroid enlargement, no adenopathy. CHEST: No chest wall deformity. Symmetrical expansion. Midsternal incision is clean dry and intact, one mediastinal chest tube and one mediastinal with pleural chest tube with minimal serous sanguinous output, no evidence of air leak. Epicardial wires are grounded LUNGS: Equal air entry with no crackles, wheeze, rhonchi or dullness. CVS: Irregular rate and rhythm, normal S1 and S2, no gallops, no murmurs, no rubs ABDOMEN: Soft, nontender. No hepatosplenomegaly, normal bowel sounds, no g uarding or rigidity. EXTREMITIES: No clubbing, no edema, no cyanosis, 2+ pulses and upper and lower extremities. MUSCULOSKELETAL: Muscle strength and tone normal. SPINE: No scoliosis or deformity SKIN: No rashes CENTRAL NERVOUS SYSTEM: Sedated, intubated. No focal deficits, tone is normal in all 4 extremities. - Labs CBC & Chem 7: 11/07/20 04:40 11/07/20 04:40 Labs: Abnormal Lab Results - Last 24 Hours (Table) 10/24/20 11/06/20 11/06/20 Range/Units 13:00 08:26 10:09 WBC (3.8-10.6) k/uL RBC (4.30-5.90) m/uL Hgb (13.0-17.5) gm/dL Hct (39.0-53.0) % RDW (11.5-15.5) % Plt Count (150-450) k/uL Neutrophils # (Manual) (1.3-7.7) k/uL Lymphocytes # (Manual) (1.0-4.8) k/uL Nucleated RBCs (0-0) /100 WBC ABG pH (7.35-7.45) ABG pO2 (83-108) mmHg ABG HCO3 (21-25) mmol/L ABG Total CO2 (19-24) mmol/L BUN (9-20) mg/dL Glucose (74-99) mg/dL POC Glucose (mg/dL) 142 H (75-99) mg/dL Calcium (8.4-10.2) mg/dL Total Protein (6.3-8.2) g/dL Albumin (3.5-5.0) g/dL Urine Protein 1+ H (Negative) Urine Blood Large H (Negative) Ur Leukocyte Esterase Trace H (Negative) Urine RBC 47 H (0-5) /hpf Urine WBC 16 H (0-5) /hpf Amorphous Sediment Rare H (None) /hpf Urine Bacteria Occasional H (None) /hpf Hyaline Casts 5 H (0-2) /lpf Urine Mucus Rare H (None) /hpf Crossmatch See Detail 11/06/20 11/06/20 11/06/20 Range/Units 11:37 16:09 19:53 WBC (3.8-10.6) k/uL RBC (4.30-5.90) m/uL Hgb (13.0-17.5) gm/dL Hct (39.0-53.0) % RDW (11.5-15.5) % Plt Count (150-450) k/uL Neutrophils # (Manual) (1.3-7.7) k/uL Lymphocytes # (Manual) (1.0-4.8) k/uL Nucleated RBCs (0-0) /100 WBC ABG pH (7.35-7.45) ABG pO2 (83-108) mmHg ABG HCO3 (21-25) mmol/L ABG Total CO2 (19-24) mmol/L BUN (9-20) mg/dL Glucose (74-99) mg/dL POC Glucose (mg/dL) 129 H 140 H 144 H (75-99) mg/dL Calcium (8.4-10.2) mg/dL Total Protein (6.3-8.2) g/dL Albumin (3.5-5.0) g/dL Urine Protein (Negative) Urine Blood (Negative) Ur Leukocyte Esterase (Negative) Urine RBC (0-5) /hpf Urine WBC (0-5) /hpf Amorphous Sediment (None) /hpf Urine Bacteria (None) /hpf Hyaline Casts (0-2) /lpf Urine Mucus (None) /hpf Crossmatch 11/06/20 11/07/20 11/07/20 Range/Units 22:03 00:36 02:03 WBC (3.8-10.6) k/uL RBC (4.30-5.90) m/uL Hgb (13.0-17.5) gm/dL Hct (39.0-53.0) % RDW (11.5-15.5) % Plt Count (150-450) k/uL Neutrophils # (Manual) (1.3-7.7) k/uL Lymphocytes # (Manual) (1.0-4.8) k/uL Nucleated RBCs (0-0) /100 WBC ABG pH (7.35-7.45) ABG pO2 (83-108) mmHg ABG HCO3 (21-25) mmol/L ABG Total CO2 (19-24) mmol/L BUN (9-20) mg/dL Glucose (74-99) mg/dL POC Glucose (mg/dL) 154 H 168 H 167 H (75-99) mg/dL Calcium (8.4-10.2) mg/dL Total Protein (6.3-8.2) g/dL Albumin (3.5-5.0) g/dL Urine Protein (Negative) Urine Blood (Negative) Ur Leukocyte Esterase (Negative) Urine RBC (0-5) /hpf Urine WBC (0-5) /hpf Amorphous Sediment (None) /hpf Urine Bacteria (None) /hpf Hyaline Casts (0-2) /lpf Urine Mucus (None) /hpf Crossmatch 11/07/20 11/07/20 11/07/20 Range/Units 04:40 04:40 04:40 WBC 12.7 H (3.8-10.6) k/uL RBC 2.36 L (4.30-5.90) m/uL Hgb 7.9 L (13.0-17.5) gm/dL Hct 22.8 L (39.0-53.0) % RDW 19.1 H (11.5-15.5) % Plt Count 82 L (150-450) k/uL Neutrophils # (Manual) 12.00 H (1.3-7.7) k/uL Lymphocytes # (Manual) 0.38 L (1.0-4.8) k/uL Nucleated RBCs 1 H (0-0) /100 WBC ABG pH (7.35-7.45) ABG pO2 (83-108) mmHg ABG HCO3 (21-25) mmol/L ABG Total CO2 (19-24) mmol/L BUN 21 H (9-20) mg/dL Glucose 152 H (74-99) mg/dL POC Glucose (mg/dL) 165 H (75-99) mg/dL Calcium 8.0 L (8.4-10.2) mg/dL Total Protein 4.8 L (6.3-8.2) g/dL Albumin 2.6 L (3.5-5.0) g/dL Urine Protein (Negative) Urine Blood (Negative) Ur Leukocyte Esterase (Negative) Urine RBC (0-5) /hpf Urine WBC (0-5) /hpf Amorphous Sediment (None) /hpf Urine Bacteria (None) /hpf Hyaline Casts (0-2) /lpf Urine Mucus (None) /hpf Crossmatch 11/07/20 11/07/20 11/07/20 Range/Units 05:26 06:12 08:02 WBC (3.8-10.6) k/uL RBC (4.30-5.90) m/uL Hgb (13.0-17.5) gm/dL Hct (39.0-53.0) % RDW (11.5-15.5) % Plt Count (150-450) k/uL Neutrophils # (Manual) (1.3-7.7) k/uL Lymphocytes # (Manual) (1.0-4.8) k/uL Nucleated RBCs (0-0) /100 WBC ABG pH 7.46 H (7.35-7.45) ABG pO2 76 L (83-108) mmHg ABG HCO3 27 H (21-25) mmol/L ABG Total CO2 28 H (19-24) mmol/L BUN (9-20) mg/dL Glucose (74-99) mg/dL POC Glucose (mg/dL) 156 H 146 H (75-99) mg/dL Calcium (8.4-10.2) mg/dL Total Protein (6.3-8.2) g/dL Albumin (3.5-5.0) g/dL Urine Protein (Negative) Urine Blood (Negative) Ur Leukocyte Esterase (Negative) Urine RBC (0-5) /hpf Urine WBC (0-5) /hpf Amorphous Sediment (None) /hpf Urine Bacteria (None) /hpf Hyaline Casts (0-2) /lpf Urine Mucus (None) /hpf Crossmatch Microbiology - Last 24 Hours (Table) 11/06/20 08:14 Sputum Culture - Preliminary Sputum 11/06/20 08:26 Urine Culture - Preliminary Urine,Voided Assessment and Plan Plan: Assessment: 1 multivessel coronary artery disease, symptomatic, post three-vessel bypass surgery with venous graft and aortic valve replacement. The patient is postop day #3. Hemodynamically stable. He is off pressors. Adequate cardiac output. Unable to extubate because of ongoing hypoxemia. Patient has failed an attempt to wean down his FiO2, currently FiO2 60% and PEEP is 12. Chest x-ray showed some limited pulmonary edema and patient has been receiving intermittent doses of Lasix. No pneumothorax. No hypotension. Adequate urine output. 2 acute hypoxic respiratory failure. The blood gas also showed a component of hypercapnic respiratory failure, acute. Ongoing hypoxemia delayed our extubation in this patient. There is essentially related to COPD, possibly component of fluid and atelectasis. He is currently on a PEEP of 12 with an FiO2 of 60%. 3 atrial fibrillation with RVR, currently on amiodarone infusion at 0.5 mg per hour 4 acute blood loss anemia, normal outcome of sternotomy, coronary artery bypass grafting and aortic valve replacement surgery. Patient has required multiple blood products 3 coronary artery disease with previous stenting of the RCA 4 COPD 5 history of extensive right upper lobe pneumonia 6 history of right upper lobe pulmonary nodule identified on a CAT scan of the chest with an average PET scan obesity workup postop with a higher suspicious for malignancy based on the PET scan findings 7 hypertension 8 hyperlipidemia 9 degenerative arthritis. Plan: Today's chest x-ray blood gas have been reviewed Patient has been seen and examined along with Dr. Espino He was given an additional dose of IV Lasix Currently O2 sat is 98%, on FiO2 of 60% and PEEP of 12 We will drop the PEEP down to 10 and FiO2 down to 50%, flow at 60 L/m Patient's peak airway pressures are low, he is not bronchospastic Continue With IV steroids, nebulized treatments Overnight patient went into A. fib with RVR, currently remains in A. fib, with a controlled rate Continue rate control drips per CT surgery, currently on amiodarone infusion Today's blood work has been reviewed Chest output is minimal, both chest tubes have been discontinued, left pleural chest tube remains in place No sedation holiday today, no spontaneous breathing trials We'll continue to wean FiO2 and PEEP as tolerated We will place left radial art line and discontinue the femoral art line Continue close monitoring in the intensive care unit We'll follow Time with Patient: Greater than 30
--- NOTE | 2020-11-07 10:54 | P.PCN ---
Date of Procedure: 11/07/20 Preoperative Diagnosis: CABG, acute hypoxic respiratory failure Postoperative Diagnosis: CABG, acute hypoxic respiratory failure Procedure(s) Performed: arterial line Anesthesia: local Surgeon: Kostas Espino Estimated Blood Loss (ml): 0 Pathology: none sent Condition: critical Disposition: ICU Operative Findings: Indication: Hemodynamic monitoring. A time-out was completed verifying correct patient, procedure, site, positioning, and implant(s) or special equipment if applicable. Allens test was performed to ensure adequate perfusion. The patients left wrist as prepped and draped in sterile fashion. 1% Lidocaine was used to anesthetize the area. An 18G Arrow arterial line was introduced into the radial artery. The catheter was threaded over the guide wire and the needle was removed with appropriate pulsatile blood return. Blood loss was minimal. The c atheter was then sutured in place to the skin and a sterile dressing applied. Perfusion to the extremity distal to the point of catheter insertion was checked and found to be adequate. The patient tolerated the procedure well and there were no complications.
[2020-11-07 11:25] LABS: ABG Base Excess 4.9 mmol/L; ABG HCO3 29 mmol/L (21-25); ABG Oxygen Saturation 93.4 % (94-97); ABG PCO2 41 mmHg (35-45); ABG PH 7.45 (7.35-7.45); ABG PO2 65 mmHg (83-108); ABG TCO2 30 mmol/L (19-24)
[2020-11-07 11:38] LABS: Glucose,Whole Blood 140 mg/dL (75-99)
[2020-11-07 12:05] LABS: Glucose,Whole Blood 148 mg/dL (75-99)
[2020-11-07] MEDS ORDERED: ALBUMIN HUMAN 5% 250 ML in EMPTY BAG 1 BAG IVPB STA (12:14)
[2020-11-07] MEDS ORDERED: ALBUMIN HUMAN 5% 250 ML in EMPTY BAG 1 BAG IVPB ONE (13:09)
--- NOTE | 2020-11-07 14:01 | P.PN ---
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 He follows in the office with Dr. Bowling. We are on consult for post operative management. 11/04/20 Patient underwent aortic valve replacement and coronary artery bypass grafting 3 with a reverse saphenous vein graft off the aorta to the circumflex coronary artery, the left anterior descending coronary artery and the posterior descending coronary artery with bilateral lower extremity greater saphenous vein endoscopic harvesting. Clip ligation of the left atrial appendage. Patient course has been complicated by poor oxygenation, ongoing hypoxemia and prolonged mechanical ventilation, and paroxysmal atrial fibrillatoin. 11/07/20 Patient seen and examined at bedside, in the intensive care unit. In no acute distress. He is remain sedated on propofol drip at 30 mcg/kg/m, remains intubated. Last evening around 8 PM the patient went into atrial fibrillation and was started on the amiodarone protocol, currently the amiodarone is infusing at 0.5 mg/m. Bedside telemetry showing normal sinus rhythm heart rate in 70s. He remains intubated with current mechanical ventilator settings assist control 24, TV 450, FiO2 60% and a PEEP of 12. He is hemodynamically stable. CVP 10. Not on any pressor/inotrope support. Continues to have chest tubes and Right IJ Cordis with swan-magdaleno catheter present. Patient is currently maintained on aspirin 325 mg daily, atorvastatin 80 mg nightly, Zetia at 10 mg nightly, metoprolol tartrate 25 mg twice a day, amiodarone 0.5mg/min, IV Lasix 40mg once today. Laboratory data reviewed, WBC 12.7, hemoglobin 10.9, platelets 82, sodium 139, potassium 4.0, BUN 12, serum creatinine 0.7. GENERAL: No acute distress intubated and sedated on propofol. NECK: Supple without JVD or thyromegaly. Right IJ Cordis and [place]-Magdaleno catheter in place LUNGS: Intubated. Breath sounds clear to auscultation bilaterally. Respiration equal and unlabored. No wheezes, rales or rhonchi. HEART: Regular rate and rhythm without murmurs, rubs or gallops. S1 and S2 heard. Chest Tubes present with serosanguineous drainage. Atrial and ventricular epicardial pacemaker wires present EXTREMITIES: Normal range of motion, no edema. No clubbing or cyanosis. Peripheral pulses intact. ASSESSMENT Severe triple-vessel coronary artery disease, status post 3 vessel CABG 11/04/20 Moderate to severe aortic valve stenosis, status post aortic valve replacement 11/04/20 Known right upper lobe pulmonary nodule, suspicious for malignancy based on PET scan findings COPD History of hypertension Hyperlipidemia History of CAD with previous stenting RCA New onset Paroxysmal atrial fibrillation, currently in normal sinus rhythm Anemia - HIT panel results pending PLAN Continue medical management with aspirin, statin, zetia, and beta paul. Recommend PO amiodarone once IV amiodarone drip is discontinued Patient's beta paul increased today Pulmonary following, wean to extubate with ventilator management per pulmonary Post operative management per CT surgery Further recommendations based on clinical course Nurse Practitioner note has been reviewed, I agree with a documented findings and plan of care. Patient was seen and examined. Objective - Vital Signs Vital signs: Vital Signs Temp 98.2 F 11/07/20 08:00 Pulse 72 11/07/20 09:00 Resp 24 11/07/20 09:00 BP 114/60 11/07/20 09:00 Pulse Ox 94 L 11/07/20 09:00 Intake & Output 11/06/20 11/07/20 11/07/20 18:59 06:59 18:59 Intake Total 546.218 2888.150 643.596 Output Total 1130 590 300 Balance -331.462 533.150 343.596 Weight 93.2 kg Intake: IV 600 640 140 CO/CI 50 40 20 Lactated Ringers 1,000 ml 550 600 120 @ 20 mls/hr IV .Q24H [facility] Rx#:[id number] Intake, IV Titration 178.538 283.150 63.596 Amount Insulin Regular 100 unit 9.561 29.652 13.584 In Sodium Chloride 0.9% 100 ml @ Per Protocol IV .Q0M [facility]Y Rx#:[id number] propofoL 1,000 mg In 168.977 253.498 50.012 Empty Bag 1 bag @ Titrate IV .Q0M CINDY Rx#: [id number] Tube Feeding 20 110 40 Blood Product 310 Rc As-1 Unit 310 [id number] Other 90 90 Output: Chest Tube Drainage 110 70 110 Mediastinal 40 20 40 medistinal #1 70 50 70 Urine 1020 520 190 Other: Voiding Method Indwelling Catheter Indwelling Catheter ABP, PAP, CO, CI - Last Documented Arterial Blood Pressure 118/58 Pulmonary Artery Pressure 60/33 Cardiac Output 4.7 Cardiac Index 2.4 - Labs CBC & Chem 7: 11/07/20 04:40 11/07/20 04:40 Labs: Abnormal Lab Results - Last 24 Hours (Table) 10/24/20 11/06/20 11/06/20 Range/Units 13:00 10:09 11:37 WBC (3.8-10.6) k/uL RBC (4.30-5.90) m/uL Hgb (13.0-17.5) gm/dL Hct (39.0-53.0) % RDW (11.5-15.5) % Plt Count (150-450) k/uL Neutrophils # (Manual) (1.3-7.7) k/uL Lymphocytes # (Manual) (1.0-4.8) k/uL Nucleated RBCs (0-0) /100 WBC ABG pH (7.35-7.45) ABG pO2 (83-108) mmHg ABG HCO3 (21-25) mmol/L ABG Total CO2 (19-24) mmol/L BUN (9-20) mg/dL Glucose (74-99) mg/dL POC Glucose (mg/dL) 142 H 129 H (75-99) mg/dL Calcium (8.4-10.2) mg/dL Total Protein (6.3-8.2) g/dL Albumin (3.5-5.0) g/dL Crossmatch See Detail 11/06/20 11/06/20 11/06/20 Range/Units 16:09 19:53 22:03 WBC (3.8-10.6) k/uL RBC (4.30-5.90) m/uL Hgb (13.0-17.5) gm/dL Hct (39.0-53.0) % RDW (11.5-15.5) % Plt Count (150-450) k/uL Neutrophils # (Manual) (1.3-7.7) k/uL Lymphocytes # (Manual) (1.0-4.8) k/uL Nucleated RBCs (0-0) /100 WBC ABG pH (7.35-7.45) ABG pO2 (83-108) mmHg ABG HCO3 (21-25) mmol/L ABG Total CO2 (19-24) mmol/L BUN (9-20) mg/dL Glucose (74-99) mg/dL POC Glucose (mg/dL) 140 H 144 H 154 H (75-99) mg/dL Calcium (8.4-10.2) mg/dL Total Protein (6.3-8.2) g/dL Albumin (3.5-5.0) g/dL Crossmatch 11/07/20 11/07/20 11/07/20 Range/Units 00:36 02:03 04:40 WBC 12.7 H (3.8-10.6) k/uL RBC 2.36 L (4.30-5.90) m/uL Hgb 7.9 L (13.0-17.5) gm/dL Hct 22.8 L (39.0-53.0) % RDW 19.1 H (11.5-15.5) % Plt Count 82 L (150-450) k/uL Neutrophils # (Manual) 12.00 H (1.3-7.7) k/uL Lymphocytes # (Manual) 0.38 L (1.0-4.8) k/uL Nucleated RBCs 1 H (0-0) /100 WBC ABG pH (7.35-7.45) ABG pO2 (83-108) mmHg ABG HCO3 (21-25) mmol/L ABG Total CO2 (19-24) mmol/L BUN (9-20) mg/dL Glucose (74-99) mg/dL POC Glucose (mg/dL) 168 H 167 H (75-99) mg/dL Calcium (8.4-10.2) mg/dL Total Protein (6.3-8.2) g/dL Albumin (3.5-5.0) g/dL Crossmatch 11/07/20 11/07/20 11/07/20 Range/Units 04:40 04:40 05:26 WBC (3.8-10.6) k/uL RBC (4.30-5.90) m/uL Hgb (13.0-17.5) gm/dL Hct (39.0-53.0) % RDW (11.5-15.5) % Plt Count (150-450) k/uL Neutrophils # (Manual) (1.3-7.7) k/uL Lymphocytes # (Manual) (1.0-4.8) k/uL Nucleated RBCs (0-0) /100 WBC ABG pH 7.46 H (7.35-7.45) ABG pO2 76 L (83-108) mmHg ABG HCO3 27 H (21-25) mmol/L ABG Total CO2 28 H (19-24) mmol/L BUN 21 H (9-20) mg/dL Glucose 152 H (74-99) mg/dL POC Glucose (mg/dL) 165 H (75-99) mg/dL Calcium 8.0 L (8.4-10.2) mg/dL Total Protein 4.8 L (6.3-8.2) g/dL Albumin 2.6 L (3.5-5.0) g/dL Crossmatch 11/07/20 11/07/20 Range/Units 06:12 08:02 WBC (3.8-10.6) k/uL RBC (4.30-5.90) m/uL Hgb (13.0-17.5) gm/dL Hct (39.0-53.0) % RDW (11.5-15.5) % Plt Count (150-450) k/uL Neutrophils # (Manual) (1.3-7.7) k/uL Lymphocytes # (Manual) (1.0-4.8) k/uL Nucleated RBCs (0-0) /100 WBC ABG pH (7.35-7.45) ABG pO2 (83-108) mmHg ABG HCO3 (21-25) mmol/L ABG Total CO2 (19-24) mmol/L BUN (9-20) mg/dL Glucose (74-99) mg/dL POC Glucose (mg/dL) 156 H 146 H (75-99) mg/dL Calcium (8.4-10.2) mg/dL Total Protein (6.3-8.2) g/dL Albumin (3.5-5.0) g/dL Crossmatch Microbiology - Last 24 Hours (Table) 11/06/20 08:14 Gram Stain - Preliminary Sputum Sputum Culture - Preliminary 11/06/20 08:26 Urine Culture - Preliminary Urine,Voided
[2020-11-07 14:19] LABS: Glucose,Whole Blood 125 mg/dL (75-99)
[2020-11-07 14:22] LABS: ABG PCO2 39 mmHg (35-45); ABG PH 7.46 (7.35-7.45)
[2020-11-07 14:23] LABS: ABG Base Excess 4.2 mmol/L; ABG HCO3 28 mmol/L (21-25); ABG Oxygen Saturation 97.9 % (94-97); ABG PO2 91 mmHg (83-108); ABG TCO2 29 mmol/L (19-24)
[2020-11-07 15:54] LABS: Glucose,Whole Blood 124 mg/dL (75-99)
[2020-11-07 17:56] LABS: Glucose,Whole Blood 168 mg/dL (75-99)
[2020-11-07] MEDS ORDERED: CEFEPIME 2 GM in SODIUM CHLORIDE 0.9% 100 ML IVPB STA (18:27)
[2020-11-07 20:18] LABS: Glucose,Whole Blood 141 mg/dL (75-99)
[2020-11-07] MEDS: EZETIMIBE 10 MG TAB PO SCH (20:23)
[2020-11-07] MEDS: ATORVASTATIN 80 MG TAB PO SCH (20:24)
[2020-11-07] MEDS: SENNOSIDES-DOCUSATE SODIUM 1 EACH TAB PO SCH (20:27)
[2020-11-07 23:13] LABS: Glucose,Whole Blood 131 mg/dL (75-99)
[2020-11-08] MEDS: LACTATED RINGERS 1,000 ML IV SCH ×2 (00:06→22:07)
[2020-11-08 00:16] LABS: Glucose,Whole Blood 143 mg/dL (75-99)
[2020-11-08 01:57] LABS: Glucose,Whole Blood 140 mg/dL (75-99)
[2020-11-08] MEDS: HYDROcodone/APAP 5-325MG 1 EACH TAB PO PRN ×4 (03:13→22:06)
[2020-11-08 03:21] LABS: ABG Base Excess 3.9 mmol/L; ABG HCO3 28 mmol/L (21-25); ABG Oxygen Saturation 79.9 % (94-97); ABG PCO2 40 mmHg (35-45); ABG PH 7.45 (7.35-7.45); ABG TCO2 29 mmol/L (19-24)
[2020-11-08 03:51] LABS: ABG PO2 44 mmHg (83-108); Allen Test Performed? no
--- NOTE | 2020-11-08 04:24 | XR ---
EXAMINATION TYPE: XR chest 1V portable DATE OF EXAM: 11/08/2020 COMPARISON: Yesterday HISTORY: Cardiac surgery TECHNIQUE: FINDINGS: There is endotracheal tube approximately 4.5 cm from the obi. There is right jugular cat heter with the tip probably in the main pulmonary artery. Exam limited by multiple overlying wires an d tubing. There is left side chest tube. There is no pneumothorax. There is no gross heart failure. T here is patchy bilateral pulmonary airspace infiltrates. Heart size is fairly normal. There is [place] stric tube with the tip of the diaphragm. IMPRESSION: There are patchy bilateral pulmonary airspace infiltrates which appear the same or slight ly worse than yesterday. No obvious heart failure.
[2020-11-08 04:31] LABS: Glucose,Whole Blood 156 mg/dL (75-99)
[2020-11-08 04:54] LABS: ABG Base Excess 3.9 mmol/L; ABG HCO3 28 mmol/L (21-25); ABG Oxygen Saturation 98.1 % (94-97); ABG PCO2 40 mmHg (35-45); ABG PH 7.45 (7.35-7.45); ABG PO2 97 mmHg (83-108); ABG TCO2 29 mmol/L (19-24)
[2020-11-08 05:07] LABS: Allen Test Performed? no
[2020-11-08 05:09] LABS: ALT 13 U/L (4-49); AST 29 U/L (17-59); African American GFR (CKD) >90 (>60 ml/min/1.73 sqM); Albumin 2.7 g/dL (3.5-5.0); Alkaline Phosphatase 45 U/L (38-126); Anion Gap 4 mmol/L; Blood Urea Nitrogen 25 mg/dL (9-20); Carbon Dioxide 26 mmol/L (22-30); Chloride 108 mmol/L (98-107); Glucose 146 mg/dL (74-99); Non-African American GFR(CKD) >90 (>60 ml/min/1.73 sqM); Potassium 4.1 mmol/L (3.5-5.1); Sodium 138 mmol/L (137-145); Total Bilirubin 0.8 mg/dL (0.2-1.3); Total Protein 4.9 g/dL (6.3-8.2)
[2020-11-08 05:12] LABS: Anisocytosis Slight; HCT 23.9 % (39.0-53.0); HGB 8.1 gm/dL (13.0-17.5); Hypochromasia Slight; MCH 33.2 pg (25.0-35.0); MCHC 33.8 g/dL (31.0-37.0); MCV 98.3 fL (80.0-100.0); Macrocytosis Slight; Mean Platelet Volume 9.6; RBC 2.43 m/uL (4.30-5.90); RDW 18.5 % (11.5-15.5)
[2020-11-08 06:43] LABS: Glucose,Whole Blood 160 mg/dL (75-99)
[2020-11-08] MEDS: IPRATROPIUM-ALBUTEROL 3 ML NEB INHALATION SCH ×4 (07:25→19:40)
[2020-11-08 07:39] LABS: Band Neutrophils % 1 %; Lymphocytes # (M) 0.74 k/uL (1.0-4.8); Neutrophils % (M) 87 %; Nucleated Red Blood Cells 1 /100 WBC (0-0); Total Cells Counted 200
[2020-11-08 07:40] LABS: Monocytes # (M) 0.63 k/uL (0-1.0); WBC 10.5 k/uL (3.8-10.6)
[2020-11-08 07:42] LABS: Platelet Count 104 k/uL (150-450)
[2020-11-08 08:01] LABS: Glucose,Whole Blood 169 mg/dL (75-99)
[2020-11-08] MEDS: ASCORBIC ACID 500 MG TAB PO SCH (08:04)
[2020-11-08] MEDS: PANTOPRAZOLE 40 MG/10 ML VIAL IVP SCH (08:04)
[2020-11-08] MEDS: methylPREDNISolone SOD SUCCI 40 MG/ML 1 ML VIAL IV SCH ×3 (08:04→23:29)
[2020-11-08] MEDS: ASPIRIN 325 MG TAB PO SCH (08:04)
[2020-11-08] MEDS: MULTIVITAMINS, THERA 1 EACH TAB PO SCH (08:04)
[2020-11-08] MEDS: CHLORHEXIDINE GLUCONATE 15 ML CUP MUCOUS MEM SCH ×2 (08:05→21:49)
[2020-11-08] MEDS: AMIODARONE 200 MG TAB OG-TUBE SCH ×3 (09:25→20:22)
[2020-11-08 09:51] LABS: Glucose,Whole Blood 154 mg/dL (75-99)
[2020-11-08] MEDS ORDERED: ALBUMIN HUMAN 5% 250 ML in EMPTY BAG 1 BAG IVPB ONE (10:19)
[2020-11-08] MEDS ORDERED: ALBUMIN HUMAN 5% 250 ML IVPB ONE (10:20)
[2020-11-08 10:24] LABS: ABG Base Excess 4.5 mmol/L; ABG HCO3 28 mmol/L (21-25); ABG Oxygen Saturation 96.8 % (94-97); ABG PCO2 40 mmHg (35-45); ABG PH 7.46 (7.35-7.45); ABG PO2 79 mmHg (83-108); ABG TCO2 30 mmol/L (19-24)
[2020-11-08] MEDS: CEFEPIME 2 GM in SODIUM CHLORIDE 0.9% 100 ML IVPB SCH ×2 (10:28→21:49)
[2020-11-08 11:15] LABS: Glucose,Whole Blood 153 mg/dL (75-99)
[2020-11-08] MEDS: INSULIN REGULAR 100 UNIT in SODIUM CHLORIDE 0.9% 100 ML IV SCH (11:35)
--- NOTE | 2020-11-08 11:52 | P.PN ---
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 He follows in the office with Dr. Bowling. We are on consult for post operative management. 11/04/20 Patient underwent aortic valve replacement and coronary artery bypass grafting 3 with a reverse saphenous vein graft off the aorta to the circumflex coronary artery, the left anterior descending coronary artery and the posterior descending coronary artery with bilateral lower extremity greater saphenous vein endoscopic harvesting. Clip ligation of the left atrial appendage. Patient course has been complicated by poor oxygenation, ongoing hypoxemia and prolonged mechanical ventilation, and paroxysmal atrial fibrillatoin. 11/07/20 Patient seen and examined at bedside, in the intensive care unit. In no acute distress. He is remain sedated on propofol drip at 30 mcg/kg/m, remains intubated. Last evening around 8 PM the patient went into atrial fibrillation and was started on the amiodarone protocol, currently the amiodarone is infusing at 0.5 mg/m. Bedside telemetry showing normal sinus rhythm heart rate in 70s. He remains intubated with current mechanical ventilator settings assist control 24, TV 450, FiO2 60% and a PEEP of 12. He is hemodynamically stable. CVP 10. Not on any pressor/inotrope support. Continues to have chest tubes and Right IJ Cordis with swan-magdaleno catheter present. Patient is currently maintained on aspirin 325 mg daily, atorvastatin 80 mg nightly, Zetia at 10 mg nightly, metoprolol tartrate 25 mg twice a day, amiodarone 0.5mg/min, IV Lasix 40mg once today. Laboratory data reviewed, WBC 12.7, hemoglobin 10.9, platelets 82, sodium 139, potassium 4.0, BUN 12, serum creatinine 0.7. Patient's beta paul was increased today. 11/08/2020: Patient seen and examined at bedside, in the intensive care unit. He is currently intubated on mechanical ventilation. Mechanical ventilator settings assist control 24, TV 450, FiO2 80% and a PEEP of 10. Patient started on PO amiodarone 400mg BID yesterday and beta paul was increased due to atrial fibrillation. He also recieved 40mg IV Lasix, without any significant Urine output and was given IV albumin. Around 4am this morning, patient became charan cardic and hypotensive, cardiac index was 1.5. He is currently on propofol 30mcg/kg/min, aspirin 325 mg daily, atorvastatin 80 mg nightly, Zetia at 10 mg nightly, metoprolol tartrate 25 mg twice a day, amiodarone 400mg BID, and IV Lasix 20mg once. Laboratory revealed WBC 10.5, hemoglobin 8.1, platelets 104, sodium 138, potassium 4.1,, BUN 25, serum creatinine 0.7. GENERAL: No acute distress intubated and sedated on propofol. NECK: Supple without JVD or thyromegaly. Right IJ Cordis and Imler-Magdaleno catheter in place LUNGS: Intubated. Breath sounds clear to auscultation bilaterally. Respiration equal and unlabored. No wheezes, rales or rhonchi. HEART: Regular rate and rhythm without murmurs, rubs or gallops. S1 and S2 heard. Chest Tube present with serosanguineous drainage. Atrial and ventricular epicardial pacemaker wires present EXTREMITIES: Normal range of motion, no edema. No clubbing or cyanosis. Peripheral pulses intact. Left radial arterial line placed ASSESSMENT Severe triple-vessel coronary artery disease, status post 3 vessel CABG 11/04/20 Moderate to severe aortic valve stenosis, status post aortic valve replacement 11/04/20 Known right upper lobe pulmonary nodule, suspicious for malignancy based on PET scan findings COPD History of hypertension Hyperlipidemia History of CAD with previous stenting RCA New onset Paroxysmal atrial fibrillation, currently in normal sinus rhythm Anemia PLAN Recommend holding beta paul Continue medical management with aspirin, statin, zetia Continue PO amiodarone Pulmonary following, wean to extubate with ventilator management per pulmonary Post operative management per CT surgery Further recommendations based on clinical course Nurse Practitioner note has been reviewed, I agree with a documented findings and plan of care. Patient was seen and examined. Objective - Vital Signs Vital signs: Vital Signs Temp 98.2 F 11/08/20 07:30 Pulse 70 11/08/20 11:36 Resp 34 H 11/08/20 11:36 BP 111/59 11/08/20 07:30 Pulse Ox 87 L 11/08/20 11:00 Intake & Output 11/07/20 11/08/20 11/08/20 18:59 06:59 18:59 Intake Total 2144.184 1156.054 901.292 Output Total 1155 565 240 Balance 989.184 591.054 661.292 Weight 93.2 kg 93.2 kg Intake: IV 460 330 150 CO/CI 160 90 50 Lactated Ringers 1,000 ml 300 240 100 @ 20 mls/hr IV .Q24H [facility] Rx#:[id number] Intake, IV Titration 964.184 356.054 481.292 Amount Albumin Human 5% 250 ml @ 250 0 mls/hr IVPB .[facility] Rx#:[id number] Albumin Human 5% 250 ml 500 In Empty Bag 1 bag @ 250 mls/hr IVPB ON[facility] Rx#: [id number] Amiodarone 450 mg In 241.949 92.224 Dextrose 5% in Water 250 ml @ 0.5 MG/MIN 16.667 mls/hr IV .Q15H PRN Rx#: [id number] Cefepime 2 gm In Sodium 100 Chloride 0.9% 100 ml @ 25 mls/hr IVPB Q12HR [facility] Rx #:[id number] Insulin Regular 100 unit 37.226 9.494 52.588 In Sodium Chloride 0.9% 100 ml @ Per Protocol IV .Q0M [facility] Rx#:[id number] propofoL 1,000 mg In 185.009 254.336 78.704 Empty Bag 1 bag @ Titrate IV .Q0M [facility] Rx#: [id number] Tube Feeding 230 380 240 Blood Product 310 Rc As-1 Unit 310 [id number] Other 180 90 30 Output: Chest Tube Drainage 115 55 15 Mediastinal 40 medistinal #1 75 55 15 Urine 1040 510 225 Other: Voiding Method Indwelling Catheter Indwelling Catheter Indwelling Catheter ABP, PAP, CO, CI - Last Documented Arterial Blood Pressure 115/45 Pulmonary Artery Pressure 70/21 Cardiac Output 4.6 Cardiac Index 2.3 - Labs CBC & Chem 7: 11/08/20 04:30 11/08/20 04:30 Labs: Abnormal Lab Results - Last 24 Hours (Table) 11/07/20 11/07/20 11/07/20 Range/Units 12:05 13:59 14:15 RBC (4.30-5.90) m/uL Hgb (13.0-17.5) gm/dL Hct (39.0-53.0) % RDW (11.5-15.5) % Plt Count (150-450) k/uL Neutrophils # (Manual) (1.3-7.7) k/uL Lymphocytes # (Manual) (1.0-4.8) k/uL Nucleated RBCs (0-0) /100 WBC ABG pH 7.46 H (7.35-7.45) ABG pO2 (83-108) mmHg ABG HCO3 28 H (21-25) mmol/L ABG Total CO2 29 H (19-24) mmol/L ABG O2 Saturation 97.9 H (94-97) % Chloride (98-107) mmol/L BUN (9-20) mg/dL Glucose (74-99) mg/dL POC Glucose (mg/dL) 148 H 125 H (75-99) mg/dL Calcium (8.4-10.2) mg/dL Total Protein (6.3-8.2) g/dL Albumin (3.5-5.0) g/dL 11/07/20 11/07/20 11/07/20 Range/Units 15:53 17:54 20:13 RBC (4.30-5.90) m/uL Hgb (13.0-17.5) gm/dL Hct (39.0-53.0) % RDW (11.5-15.5) % Plt Count (150-450) k/uL Neutrophils # (Manual) (1.3-7.7) k/uL Lymphocytes # (Manual) (1.0-4.8) k/uL Nucleated RBCs (0-0) /100 WBC ABG pH (7.35-7.45) ABG pO2 (83-108) mmHg ABG HCO3 (21-25) mmol/L ABG Total CO2 (19-24) mmol/L ABG O2 Saturation (94-97) % Chloride (98-107) mmol/L BUN (9-20) mg/dL Glucose (74-99) mg/dL POC Glucose (mg/dL) 124 H 168 H 141 H (75-99) mg/dL Calcium (8.4-10.2) mg/dL Total Protein (6.3-8.2) g/dL Albumin (3.5-5.0) g/dL 11/07/20 11/08/20 11/08/20 Range/Units 23:12 00:03 01:55 RBC (4.30-5.90) m/uL Hgb (13.0-17.5) gm/dL Hct (39.0-53.0) % RDW (11.5-15.5) % Plt Count (150-450) k/uL Neutrophils # (Manual) (1.3-7.7) k/uL Lymphocytes # (Manual) (1.0-4.8) k/uL Nucleated RBCs (0-0) /100 WBC ABG pH (7.35-7.45) ABG pO2 (83-108) mmHg ABG HCO3 (21-25) mmol/L ABG Total CO2 (19-24) mmol/L ABG O2 Saturation (94-97) % Chloride (98-107) mmol/L BUN (9-20) mg/dL Glucose (74-99) mg/dL POC Glucose (mg/dL) 131 H 143 H 140 H (75-99) mg/dL Calcium (8.4-10.2) mg/dL Total Protein (6.3-8.2) g/dL Albumin (3.5-5.0) g/dL 11/08/20 11/08/20 11/08/20 Range/Units 03:20 04:29 04:30 RBC 2.43 L (4.30-5.90) m/uL Hgb 8.1 L (13.0-17.5) gm/dL Hct 23.9 L (39.0-53.0) % RDW 18.5 H (11.5-15.5) % Plt Count 104 L (150-450) k/uL Neutrophils # (Manual) 9.20 H (1.3-7.7) k/uL Lymphocytes # (Manual) 0.74 L (1.0-4.8) k/uL Nucleated RBCs 1 H (0-0) /100 WBC ABG pH (7.35-7.45) ABG pO2 44 L* (83-108) mmHg ABG HCO3 28 H (21-25) mmol/L ABG Total CO2 29 H (19-24) mmol/L ABG O2 Saturation 79.9 L (94-97) % Chloride (98-107) mmol/L BUN (9-20) mg/dL Glucose (74-99) mg/dL POC Glucose (mg/dL) 156 H (75-99) mg/dL Calcium (8.4-10.2) mg/dL Total Protein (6.3-8.2) g/dL Albumin (3.5-5.0) g/dL 11/08/20 11/08/20 11/08/20 Range/Units 04:30 04:52 06:29 RBC (4.30-5.90) m/uL Hgb (13.0-17.5) gm/dL Hct (39.0-53.0) % RDW (11.5-15.5) % Plt Count (150-450) k/uL Neutrophils # (Manual) (1.3-7.7) k/uL Lymphocytes # (Manual) (1.0-4.8) k/uL Nucleated RBCs (0-0) /100 WBC ABG pH (7.35-7.45) ABG pO2 (83-108) mmHg ABG HCO3 28 H (21-25) mmol/L ABG Total CO2 29 H (19-24) mmol/L ABG O2 Saturation 98.1 H (94-97) % Chloride 108 H (98-107) mmol/L BUN 25 H (9-20) mg/dL Glucose 146 H (74-99) mg/dL POC Glucose (mg/dL) 160 H (75-99) mg/dL Calcium 8.0 L (8.4-10.2) mg/dL Total Protein 4.9 L (6.3-8.2) g/dL Albumin 2.7 L (3.5-5.0) g/dL 11/08/20 11/08/20 11/08/20 Range/Units 07:59 09:32 10:21 RBC (4.30-5.90) m/uL Hgb (13.0-17.5) gm/dL Hct (39.0-53.0) % RDW (11.5-15.5) % Plt Count (150-450) k/uL Neutrophils # (Manual) (1.3-7.7) k/uL Lymphocytes # (Manual) (1.0-4.8) k/uL Nucleated RBCs (0-0) /100 WBC ABG pH 7.46 H (7.35-7.45) ABG pO2 79 L (83-108) mmHg ABG HCO3 28 H (21-25) mmol/L ABG Total CO2 30 H (19-24) mmol/L ABG O2 Saturation (94-97) % Chloride (98-107) mmol/L BUN (9-20) mg/dL Glucose (74-99) mg/dL POC Glucose (mg/dL) 169 H 154 H (75-99) mg/dL Calcium (8.4-10.2) mg/dL Total Protein (6.3-8.2) g/dL Albumin (3.5-5.0) g/dL 11/08/20 Range/Units 11:13 RBC (4.30-5.90) m/uL Hgb (13.0-17.5) gm/dL Hct (39.0-53.0) % RDW (11.5-15.5) % Plt Count (150-450) k/uL Neutrophils # (Manual) (1.3-7.7) k/uL Lymphocytes # (Manual) (1.0-4.8) k/uL Nucleated RBCs (0-0) /100 WBC ABG pH (7.35-7.45) ABG pO2 (83-108) mmHg ABG HCO3 (21-25) mmol/L ABG Total CO2 (19-24) mmol/L ABG O2 Saturation (94-97) % Chloride (98-107) mmol/L BUN (9-20) mg/dL Glucose (74-99) mg/dL POC Glucose (mg/dL) 153 H (75-99) mg/dL Calcium (8.4-10.2) mg/dL Total Protein (6.3-8.2) g/dL Albumin (3.5-5.0) g/dL Microbiology - Last 24 Hours (Table) 11/06/20 08:14 Gram Stain - Final Sputum Sputum Culture - Final Citrobacter freundii 11/06/20 08:26 Urine Culture - Final Urine,Voided
--- NOTE | 2020-11-08 12:57 | P.PN ---
Subjective Progress Note Date: 11/08/20 This is a 75-year-old male patient, underwent an aortic valve replacement with a bioprosthetic aortic valve and three-vessel bypass surgery with vein grafts and the patient is currently postoperative in intensive care unit. The patient is known to have coronary artery disease. He has undergone previous coronary intervention stenting of an 80% RCA lesion. He was symptomatic and further investigation revealed triple-vessel disease and for that reason he was taken to the operating room. He is also moderately severe aortic stenosis. Currently is sedated on propofol which is running at 25 mg/kg per minute. Is quite sedated on a mechanical ventilator. His blood gases showed a respiratory acidosis with a pH of 7.136 and a pCO2 of 73 and pO2 of 71. This was an assist-control mode at the rate of 14 with a tidal volume of 450 and FiO2 of 1 and a PEEP of 5. Since then, the PEEP has been increased up to 8, and his respiratory rate is up to 24. Current pulse ox on the monitor that 90%.. The patient has 2 mediastinal chest tubes and 1 pleural chest tube. Output from mediastinal chest tube has been around 450 mL and output from the left pleural chest tube is been around 130 mL since the patient up from the operating room. The patient is hemodynamically supported with Primacor at 0.25 mcg/kg per minute and the patient is also on nitroglycerin drip at 25 g 5 minutes. Patient has a cardiac index of 2.3. Pulmonary artery pressures of 61/31. He is on insulin drip running at 1.5 units an hour. He has an adequate urine output. Chest x-ray postop showed adequate expansion of both lungs. No this of pneumothorax. ET tube is in good location. Troy-Magdaleno remains in a good location. The patient is an OG tube and 2 mediastinal and 1 pleural chest tube on of the mandible location there is no evidence of any pneumothorax. Cardiac rhythm is sinus. 11/05/2020, the patient remains on a mechanical ventilator. I was unable to wean him yesterday because of his limited oxygenation. Overnight, the patient was kept on a PEEP of 8 and his FiO2 is down to 90% and he has a tidal volume of 450 with a rate of 24. His peak airway pressure this morning is at 24. The morning blood gases showed a pH of 7.44 with a pCO2 of 41 and pO2 of 65. Based on that, I increased the PEEP up to 10 and 30. Blood gases showed a pH of 7.45 with a pCO2 of 40 and pO2 of 92. His FiO2 subsequently was found to 60%. This current pulse ox is 93%. He remains sedated with propofol and he is currently on 20 mcg/kg per minute and is well rested for now. He has 2 mediastinal chest tubes and a left pleural chest tube. Output from the mediastinal chest tube has been 10-20 mL's an hour and from the pleural chest tube is in order of 10-20 mL an hour. The patient's is hemodynamically stable. He is off milrinone for now. Cardiac index is in order of 2.4 with an output of 4.8. There has been impr ovement in the pulmonary artery pressures which is dropped down to 43/25. His CVP is currently at 8. His morning hemoglobin was at 7.5 and the patient was given a unit of packed RBC. He has a RHINA drain in his left lower extremity, output is bloody and minimal at this point in time. His cardiac rhythm is sinus. He is on an insulin drip running at 1.5 units an hour. He is off the nitroglycerin drip. He was given IV Solu Medrol yesterday regarding COPD and some increased bronchospasm and wheeze. He is also on bronchodilators. Chest x-ray from today shows adequate expansion of both lungs. There is a right upper lobe pulmonary nodule that was evident on the previous PET scan. Chronic no dularity and scarring in the left upper lobe also. No sizable pneumothorax. Minimal atelectatic changes and effusion the lung bases. Mediastinal chest tubes and left pleural chest tube of been in good location. Count is up from 82 down to 67. Also is following some simple commands and he can be aroused out of his sedation upon stimulation. 11/06/2020 him I'm seeing this patient for a follow-up. The patient remains intubated. We had some issues with his oxygenation and for that reason his extubation has been delayed. In summary, the patient remains on a mechanical ventilator. This morning he is an assist-control mode at the rate of 24 with a tidal volume of 450 and FiO2 of 60% with a PEEP of 12. Blood gases from today shows a pH of 7.46 orally 6 with a pCO2 of 38 and pO2 of 75. Chest x-ray showing some limited interstitial edema/pulmonary edema and the patient would benefit from some diuretics. His coronary artery pressures have been lower postop and is currently at the pressure of 51/26. CVP is at 7. Cardiac output is 5.3 with an index of 2.7. He is off milrinone. Is off the nitroglycerin drip. He is still on insulin drip at 1.5 units an hour. The output from the mediastinal tube has been 300 over the past 24 hours and output from the left pleural chest tube is 200 mL over the past 24 hours. Output remains somewhat bloody. No evidence of any air leak. No evidence of any pneumothorax on his chest x-ray. He remains sedated with propofol which is running at 30 mg/kg/m. He did have some loose liquidy bloody rest of the secretions which is being suctioned out of his orotracheal tube. Otherwise, his cardiac rhythm remains sinus. Occasional junctional rhythm was also noted. RHINA drain from his left lower extremity has been removed. On today's evaluation on 11/07/2020 patient is seen in the intensive care unit, sedated and intubated, on assist-control mode of ventilation, with a rate of 24, M is 450, FiO2 of 60% and PEEP of 12. This morning his blood gases showed pO2 of 76, pCO2 of 38, and pH is 7.46, today's chest x-ray has been reviewed showing no evidence of pneumothorax, mild scattered ulnar edema, and left lower lobe atelectasis. Patient received a dose of IV Lasix yesterday, however he is still in +200 mL fluid balance over the last 24 hours, he was given an additional dose of IV Lasix this morning per CT surgery. Yesterday an attempt was made to wean down FiO2 however patient's FiO2 down to 50%, however follow-up blood gas showed severe worsening of oxygenation, and pO2 of 46%. His PEEP was increased to 12, and FiO2 at 60%. In addition patient went into A. fib with RVR last night, he was started on amiodarone infusion which is currently infusing at 0.5 mg/m. He is on Diprivan at 40 mics per kilo per minute, lactated Ringer's at 50 ML per hour. Insulin at 3 units per hour. Currently patient remains in A. fib with a better controlled rate at 73 BPM, blood pressure is 122/54, PA pressures 61/31, CVP is 10, article output is 4.7, cardiac index is 2.4. Patient has one mediastinal and one mediastinal chest tube connected to left pleural chest tubes with minimal outputs overnight, no evidence of air leak noted. Epicardial wires are in place, grounded to the chest. Currently not on any anticoagulation, except for full dose aspirin 325 mg. Today's platelet count is 82, HIT antibodies have been sent and are pending right now, as today's blood work has been reviewed showing white blood cell, 12.7, hemoglobin is 7.9, actually lites are within normal limits, B1 is 21 creatinine 0.73. Patient did receive multip le blood products in the postoperative period, 3 units of packed red blood cells, 4 units of FFP, 1 unit of cryoprecipitate, and 1 unit of platelets. There has been no evidence of active bleeding, minimal output from the chest tubes. 11/08/2020, I'm seeing this patient for a follow-up. Unfortunately, the patient remains intubated on a mechanical ventilator and we have been able to wean this patient off the mechanical ventilator. The patient is postop day #3. His oxidation is become an ongoing issue. Unable to cut down the PEEP under 10 as the patient desaturates significantly. His chest x-ray showing some leg by the pulmonary infiltrates in the sputum is positive for Citrobacter and for that reason the patient was started on IV cefepime 2 g every 12 hours. Nevertheless, he has no leukocytosis or fever. Meanwhile, while being a mechanical ventilator, is an assist-control mode at the rate of 24 with a tidal volume of 450 and FiO2 of 70% with a PEEP of 10. Note that overnight, the patient desaturated and had to bring him up to 100% and The PEEP at 10. He was able to wean down as low as 70%. Subsequently, blood gases was done earlier this morning that showed a pH of 7.45 with a pCO2 of 40 and pO2 of 97 and this was on FiO2 of 80%. FiO2 was gradually wean down to 50% and a PEEP was brought down to 10. He was doing well and the subsequent blood gases showed a pH of 7.46 with a pCO2 of 40 and pO2 of 79. I was getting ready to wean this patient off the sedation try to assess his mental status. I dropped the PEEP down to 9 and subsequent his pulse ox dropped down to the low 80s. I to bring up the PEEP back to 10 lengthy is FiO2 back to 80%. Meanwhile, hemodynamically is doing well. His peak air pressures around 24 anesthetic pressures around 17. He is not any bronchospastic and wheezy. He is on a propofol drip running at 40 mg/kg/m. Is on lactated Ringer 20 mL's an hour. Cardiac index is at 2.5 with a output of 4.5. CVP is ranging between 4 and 6. Pulmonary artery pressures are 43/24. He is insulin drip is running at 4 units an hour. His cardiac rhythm is sinus. He did have a run of atrial fibrillation that was treated and the patient is back to normal sinus rhythm. The patient otherwise was started on enteral feeding for nutritional support and is currently on vital high protein at the rate of 40 mL an hour. Case has been discussed extensively with the cardiothoracic team. Objective - Vital Signs Vital signs: Vital Signs Temp 97.5 F L 11/08/20 12:00 Pulse 79 11/08/20 12:00 Resp 19 11/08/20 12:00 BP 111/59 11/08/20 07:30 Pulse Ox 91 L 11/08/20 12:00 Intake & Output 11/07/20 11/08/20 11/08/20 18:59 06:59 18:59 Intake Total 2144.184 7651.406 1856.048 Output Total 1155 565 300 Balance 989.184 591.054 832.048 Weight 93.2 kg 93.2 kg Intake: IV 460 330 190 CO/CI 160 90 70 Lactated Ringers 1,000 ml 300 240 120 @ 20 mls/hr IV .Q24H [facility] Rx#:[id number] Intake, IV Titration 964.184 356.054 512.048 Amount Albumin Human 5% 250 ml @ 250 0 mls/hr IVPB .STK-MED ONE Rx#:[id number] Albumin Human 5% 250 ml 500 In Empty Bag 1 bag @ 250 mls/hr IVPB ONCE STA Rx#: [id number] Amiodarone 450 mg In 241.949 92.224 Dextrose 5% in Water 250 ml @ 0.5 MG/MIN 16.667 mls/hr IV .Q15H PRN Rx#: [id number] Cefepime 2 gm In Sodium 100 Chloride 0.9% 100 ml @ 25 mls/hr IVPB Q12HR [facility] Rx #:[id number] Insulin Regular 100 unit 37.226 9.494 52.588 In Sodium Chloride 0.9% 100 ml @ Per Protocol IV .Q0M [facility] Rx#:[id number] propofoL 1,000 mg In 185.009 254.336 109.460 Empty Bag 1 bag @ Titrate IV .Q0M [facility] Rx#: [id number] Tube Feeding 230 380 340 Blood Product 310 Rc As-1 Unit 310 [id number] Other 180 90 90 Output: Chest Tube Drainage 115 55 15 Mediastinal 40 medistinal #1 75 55 15 Urine 1040 510 285 Other: Voiding Method Indwelling Catheter Indwelling Catheter Indwelling Catheter ABP, PAP, CO, CI - Last Documented Arterial Blood Pressure 120/42 Pulmonary Artery Pressure 79/20 Cardiac Output 7.2 Cardiac Index 3.6 - Exam Gen. appearance the patient sedated, comfortable not in acute respiratory distress orogastric and orotracheal tube are both in place. The patient is quite successful mechanical ventilator. Head exam was generally normal. There was no scleral icterus or corneal arcus. M ucous membranes were moist. Neck was supple and without jugular venous distension, thyromegaly, or carotid bruits. Carotids were easily palpable bilaterally. There was no adenopathy. The patient has a right IJ Troy-Magadleno catheter in place Lungs sounds are equal and symmetrical bilaterally. Patient has 2 mediastinal chest tube and 1 pleural chest tube. No evidence of any air leak. Output has been noted Cardiac exam revealed the PMI to be normally situated and sized. The rhythm was regular and no extrasystoles were noted during several minutes of auscultation. The first and second heart sounds were normal and physiologic splitting of the second heart sound was noted. There were no murmurs, rubs, clicks, or gallops. Sternum stable clean and intact. Abdominal exam revealed normal bowel sounds. The abdomen was soft, non-tender, and without masses, organomegaly, or appreciable enlargement of the abdominal aorta. Extremities the patient is a RHINA drain in the left lower extremity. Pulses are equal and symmetrical diminished. Extremities are cold. No cyanosis or clubbing. Neurologically sedated, pupils are equal and reactive to light. - Labs CBC & Chem 7: 11/08/20 04:30 11/08/20 04:30 Labs: Abnormal Lab Results - Last 24 Hours (Table) 11/07/20 11/07/20 11/07/20 Range/Units 13:59 14:15 15:53 RBC (4.30-5.90) m/uL Hgb (13.0-17.5) gm/dL Hct (39.0-53.0) % RDW (11.5-15.5) % Plt Count (150-450) k/uL Neutrophils # (Manual) (1.3-7.7) k/uL Lymphocytes # (Manual) (1.0-4.8) k/uL Nucleated RBCs (0-0) /100 WBC ABG pH 7.46 H (7.35-7.45) ABG pO2 (83-108) mmHg ABG HCO3 28 H (21-25) mmol/L ABG Total CO2 29 H (19-24) mmol/L ABG O2 Saturation 97.9 H (94-97) % Chloride (98-107) mmol/L BUN (9-20) mg/dL Glucose (74-99) mg/dL POC Glucose (mg/dL) 125 H 124 H (75-99) mg/dL Calcium (8.4-10.2) mg/dL Total Protein (6.3-8.2) g/dL Albumin (3.5-5.0) g/dL 11/07/20 11/07/20 11/07/20 Range/Units 17:54 20:13 23:12 RBC (4.30-5.90) m/uL Hgb (13.0-17.5) gm/dL Hct (39.0-53.0) % RDW (11.5-15.5) % Plt Count (150-450) k/uL Neutrophils # (Manual) (1.3-7.7) k/uL Lymphocytes # (Manual) (1.0-4.8) k/uL Nucleated RBCs (0-0) /100 WBC ABG pH (7.35-7.45) ABG pO2 (83-108) mmHg ABG HCO3 (21-25) mmol/L ABG Total CO2 (19-24) mmol/L ABG O2 Saturation (94-97) % Chloride (98-107) mmol/L BUN (9-20) mg/dL Glucose (74-99) mg/dL POC Glucose (mg/dL) 168 H 141 H 131 H (75-99) mg/dL Calcium (8.4-10.2) mg/dL Total Protein (6.3-8.2) g/dL Albumin (3.5-5.0) g/dL 11/08/20 11/08/20 11/08/20 Range/Units 00:03 01:55 03:20 RBC (4.30-5.90) m/uL Hgb (13.0-17.5) gm/dL Hct (39.0-53.0) % RDW (11.5-15.5) % Plt Count (150-450) k/uL Neutrophils # (Manual) (1.3-7.7) k/uL Lymphocytes # (Manual) (1.0-4.8) k/uL Nucleated RBCs (0-0) /100 WBC ABG pH (7.35-7.45) ABG pO2 44 L* (83-108) mmHg ABG HCO3 28 H (21-25) mmol/L ABG Total CO2 29 H (19-24) mmol/L ABG O2 Saturation 79.9 L (94-97) % Chloride (98-107) mmol/L BUN (9-20) mg/dL Glucose (74-99) mg/dL POC Glucose (mg/dL) 143 H 140 H (75-99) mg/dL Calcium (8.4-10.2) mg/dL Total Protein (6.3-8.2) g/dL Albumin (3.5-5.0) g/dL 11/08/20 11/08/20 11/08/20 Range/Units 04:29 04:30 04:30 RBC 2.43 L (4.30-5.90) m/uL Hgb 8.1 L (13.0-17.5) gm/dL Hct 23.9 L (39.0-53.0) % RDW 18.5 H (11.5-15.5) % Plt Count 104 L (150-450) k/uL Neutrophils # (Manual) 9.20 H (1.3-7.7) k/uL Lymphocytes # (Manual) 0.74 L (1.0-4.8) k/uL Nucleated RBCs 1 H (0-0) /100 WBC ABG pH (7.35-7.45) ABG pO2 (83-108) mmHg ABG HCO3 (21-25) mmol/L ABG Total CO2 (19-24) mmol/L ABG O2 Saturation (94-97) % Chloride 108 H (98-107) mmol/L BUN 25 H (9-20) mg/dL Glucose 146 H (74-99) mg/dL POC Glucose (mg/dL) 156 H (75-99) mg/dL Calcium 8.0 L (8.4-10.2) mg/dL Total Protein 4.9 L (6.3-8.2) g/dL Albumin 2.7 L (3.5-5.0) g/dL 11/08/20 11/08/20 11/08/20 Range/Units 04:52 06:29 07:59 RBC (4.30-5.90) m/uL Hgb (13.0-17.5) gm/dL Hct (39.0-53.0) % RDW (11.5-15.5) % Plt Count (150-450) k/uL Neutrophils # (Manual) (1.3-7.7) k/uL Lymphocytes # (Manual) (1.0-4.8) k/uL Nucleated RBCs (0-0) /100 WBC ABG pH (7.35-7.45) ABG pO2 (83-108) mmHg ABG HCO3 28 H (21-25) mmol/L ABG Total CO2 29 H (19-24) mmol/L ABG O2 Saturation 98.1 H (94-97) % Chloride (98-107) mmol/L BUN (9-20) mg/dL Glucose (74-99) mg/dL POC Glucose (mg/dL) 160 H 169 H (75-99) mg/dL Calcium (8.4-10.2) mg/dL Total Protein (6.3-8.2) g/dL Albumin (3.5-5.0) g/dL 11/08/20 11/08/20 11/08/20 Range/Units 09:32 10:21 11:13 RBC (4.30-5.90) m/uL Hgb (13.0-17.5) gm/dL Hct (39.0-53.0) % RDW (11.5-15.5) % Plt Count (150-450) k/uL Neutrophils # (Manual) (1.3-7.7) k/uL Lymphocytes # (Manual) (1.0-4.8) k/uL Nucleated RBCs (0-0) /100 WBC ABG pH 7.46 H (7.35-7.45) ABG pO2 79 L (83-108) mmHg ABG HCO3 28 H (21-25) mmol/L ABG Total CO2 30 H (19-24) mmol/L ABG O2 Saturation (94-97) % Chloride (98-107) mmol/L BUN (9-20) mg/dL Glucose (74-99) mg/dL POC Glucose (mg/dL) 154 H 153 H (75-99) mg/dL Calcium (8.4-10.2) mg/dL Total Protein (6.3-8.2) g/dL Albumin (3.5-5.0) g/dL Microbiology - Last 24 Hours (Table) 11/06/20 08:14 Gram Stain - Final Sputum Sputum Culture - Final Citrobacter freundii 11/06/20 08:26 Urine Culture - Final Urine,Voided Assessment and Plan Plan: 1 multivessel coronary artery disease, symptomatic, post three-vessel bypass surgery with venous graft and aortic valve replacement. The patient is postop d ay #4. Hemodynamically stable and the patient is currently on no pressors. Hemodynamic parameters including cardiac output and index are adequate and the patient is on no pressors. Nevertheless, unable to extubate the patient because of ongoing difficulties with hypoxemia. 2 acute hypoxic respiratory failure. The blood gas also showed a component of hypercapnic respiratory failure, acute. Ongoing hypoxemia delayed our extubation in this patient. There is essentially related to COPD, possibly component of fluid and atelectasis. He is currently on a PEEP of 10 with an FiO2 of 80%. Please refer to the events mentioned above in terms of his weaning process. Upon careful review, the patient seems to have had significant COPD with a diffusion capacity of 18% preoperatively. Intraoperative examination of his lungs revealed that the patient had significant emphysematous changes bilate rally. Meanwhile, postop, he developed some limited by the pulmonary infiltrates is also growing gram-negative bacillus, Citrobacter in his sputum and for that reason he was started on IV cefepime. Nevertheless, his behavior is more consistent with an acute lung injury. He is very much PEEP dependent and EGD recruits easily once taken off the PEEP. He has received blood products intraoperatively. He is still on a 10 of PEEP with an FiO2 ranging between 60- 80%. He remains sedated for now. Peak and static pressure not elevated. No signs of any acute bronchospasm or wheeze. Pulmonary artery pressures improved postop. 3 coronary artery disease with previous stenting of the RCA 4 COPD 5 history of extensive right upper lobe pneumonia 6 history of right upper lobe pulmonary nodule identified on a CAT scan of the chest with an average PET scan obesity workup postop with a higher suspicious for malignancy based on the PET scan findings 7 hypertension 8 hyperlipidemia 9 degenerative arthritis. Plan Keep the PEEP at 10 and the wean down the FiO2 down Sedation holiday and assess patient's mental status Unsure if the patient is able to wean hisunderlyingoxygenation Monitor the blood gases Keep the patient sedated with propofol for now. off Primacor monitor the cardiac output no need for further diuretic as the patient has been adequately diuresed and his filling pressure including CVP is low Continue insulin at 4 units an hour Enteral feeding has been initiated We'll continue to follow. [facility]. He is on IV Solu Medrol. He is also started on IV cefepime. ll repeat the blood gas. If adequate, we'll proceed with further weaning of the PEEP and subsequently had a sedation holiday. Critical care evaluation was on a more than 30 minutes. Time with Patient: Greater than 30
[2020-11-08 13:30] LABS: Glucose,Whole Blood 132 mg/dL (75-99)
--- NOTE | 2020-11-08 14:46 | CDI ---
Documentation Clarification Form Date: 11/08/2020 01:51:44 PM From: Wilma Reilly RN, CCDS Admit Date: 11/04/2020 05:32:00 AM Patient Name: Henrique Johnson Visit Number: [id number] Discharge Date: ATTENTION: The Clinical Documentation Specialists (CDI) and [facility] Coding Staff appreciate your assistance in clarifying documentation. Please respond to the clarification below the line at the bottom and electronically sign. The CDI & [facility] Coding staff will review the response and follow-up if needed. Please note: Queries are made part of the Legal Health Record. If you have any questions, please contact the author of this message via ITS. Dr. Gerson Townsend Acute hypoxic respiratory failure and acute hypercapnic respiratory failure is documented in the progress notes and patient had three-vessel bypass and aortic valve replacement on 11/04/2020. Additional clarification is requested regarding the relationship, if any, that exists between the diagnosis and the procedure. ARDS is also documented beginning in the 11/10 Pulmonary Progress Note and subsequent Progress Notes through 11/14. Patients Admitting Diagnosis: Severe 3-vessel coronary artery disease. Moderate to severe aortic stenosis Post-Operative Diagnosis: Same Procedure performed: Aortic valve replacement. Coronary artery bypass grafting x3 with reverse saphenous vein grafts off the aorta to the circumflex artery, the left anterior descending artery and the posterior descending artery with bilateral lower extremity greater saphenous vein endoscopic vein harvesting. 11/06 Attending progress note: Prolonged mechanical ventilation, secondary acute hypoxic respiratory failure with ongoing hypoxemia, preoperative FEV1 66 % of predicted value and DLCO 18 % of predicted value. 11/08 Pulmonary progress notes: The patient had significant COPD. Postop, he developed some limited pulmonary infiltrates is growing gram-negative bacillus, Citrobacter in his sputum, on IV Cefepime. His behavior is more consistent with an acute lung injury. History/Risk Factors: Pulmonary hypertension, moderate to severe aortic stenosis, severe 3-vessel coronary artery disease, CAD w/previous NV & coronary stents, COPD, Right upper lobe pulmonary nodule, suspicious for malignancy based on PET scan findings Clinical Indicators: 75-year-old male presented for elective CABG and AVR. Following the procedure, blood gases showed a respiratory acidosis with pH of 7.136 and a pCO2 of 73 and pO2 of 71. This was an assist-control mode at the rate of 14 with a tidal volume of 450 and FiO2 OF 1 and a PEEP of 5. The PEEP has been increased per ABG results and pulmonary orders. Treatment: ICU/Telemetry Monitoring Propofol drip 40mg/kg/m Mechanical ventilation wean FiO2 and PEEP as tolerated Monitor ABG, O2 Sat's per orders (titrate) Vital signs per protocol Chest x-ray daily and per orders Nebulized treatments per orders Lasix 40 mg IV (11/06, 11/07) Cefepime HCL 2 GM IVPB Q 12 HRS What relationship, if any, exists between the diagnosis of acute hypoxic respiratory failure and acute hypercapnic respiratory or ARDS and the procedure: [ ] Acute hypoxic and hypercapnic respiratory failure is a complication of surgical procedure [ ] Acute hypoxic and hypercapnic respiratory failure is an expected outcome of the surgical procedure [ X ] Acute hypoxic and hypercapnic respiratory failure is related to patients co-morbid condition(s) of history of valley fever and agent orange exposure during , lung nodule suspicious for cancer on PET & is not a complication of the procedure [ ] ARDS is a complication of the surgical procedure [ ] ARDS is an expected outcome of the surgical procedure [ ] ARDS is related to the patient's co-morbid condition(s), please specify: & is not a complication of the procedure. [ ] Other please specify: [ ] Unable to determine (Template Last Revised: May 2020) MTDD
[2020-11-08 14:59] LABS: Glucose,Whole Blood 130 mg/dL (75-99)
[2020-11-08] MEDS: HEPARIN SODIUM,PORCINE/PF 5,000 UNIT/0.5 ML SYRINGE SQ SCH ×2 (15:49→23:29)
[2020-11-08 16:44] LABS: Glucose,Whole Blood 137 mg/dL (75-99)
--- NOTE | 2020-11-08 16:50 | P.PN ---
Subjective Progress Note Date: 11/08/20 Principal diagnosis: Severe triple vessel coronary artery disease, moderate to severe aortic valve stenosis, pulmonary hypertension and right upper lobe pulmonary nodule, suspicious for malignancy based on PET scan findings. Past medical history significant for hypertension, hyperlipidemia, right subclavian artery stenosis, coronary artery disease with previous stenting of the right coronary artery, history of right upper lobe pneumonia, COPD with preoperative FEV1 showing a predicted value of 66%, DLCO 18% of predicted value and remote history of nicotine dependence in which he quit smoking around 25 years ago. POD #4 aortic valve replacement with a 27 mm De León Inspiris bioprosthetic aortic valve, coronary artery bypass grafting 3 with a reverse saphenous vein graft off the aorta to the circumflex coronary artery, the left anterior descending coronary artery and the posterior descending coronary artery with bilateral lower extremity greater saphenous vein endoscopic harvesting. Clip ligation of the left atrial appendage with a 35 mm Atriclip, intraoperative transesophageal echocardiogram and graft flow measurement using the [employer] system. Postoperative acute blood loss anemia and thrombocytopenia, expected given hemodilution and cardiopulmonary bypass. Prolonged mechanical ventilation, secondary acute hypoxic respiratory failure with ongoing hypoxemia, preoperative FEV1 66% of predicted value and DLCO 18% of predicted value. Paroxysmal atrial fibrillation, a known common occurrence after cardiac surgery, currently in normal sinus rhythm. The patient was seen in follow-up today 11/08/2020 at his bedside in the intensive care unit. The patient remains intubated with mechanical ventilator support and is sedated on propofol drip at 40 mcg/kg/m. The patient does follow some simple commands with squeezing hands and wiggling toes. He remains hemodynamically stable and is currently on no inotropic or pressor support. Right IJ Cordis with [place]-Magdaleno catheter remains in place with current cardiac output 4.7, cardiac index 2.4, PA pressures 51/22 and CVP 7 mmHg. Current mechanical ventilator settings are as follows assist control 24, tidal volume 450, FiO2 70% and PEEP of 10. ABGs on current mechanical ventilator settings are pH of 7.45, pCO2 40, pO2 97, HCO3 28, oxygen saturation 98% and base excess 3.9. Patient remains afebrile the last 24 hours. Preliminary sputum culture results show gram-negative bacilli and was given 1 dose of cefepime yesterday 2 g IV piggyback. Final Urine culture was no growth after 18 hours. Laboratory results this morning show a WBC count 10.6, hemoglobin 8.1, hematocrit 23.9, platelets 104, BUN 25, creatinine 0.73, and band count is down to 1. His HIT panel results were negative for HIT. He had some paroxysmal atrial fibrillation yesterday and was started on amiodarone per protocol and is currently on amiodarone 400 mg per OG tube twice a day. Currently the patient is in normal sinus rhythm with heart rate 65 BPM and is having occasional junctional rhythms with heart rate in the 50s. Mediastinal chest tubes were removed without incident yesterday. Left pleural chest tube remains in place to low continuous wall suction -20 cm H2O. No air leak is present. 55 mL of thin serosanguineous drainage in the last 24 hours. Objective - Vital Signs Vital signs: Vital Signs Temp 98.2 F 11/08/20 07:30 Pulse 61 11/08/20 08:00 Resp 30 H 11/08/20 08:00 BP 111/59 11/08/20 07:30 Pulse Ox 97 11/08/20 08:00 Intake & Output 11/07/20 11/08/20 11/08/20 18:59 06:59 18:59 Intake Total 2144.184 1156.054 216.411 Output Total 1155 565 105 Balance 989.184 591.054 111.411 Weight 93.2 kg 93.2 kg Intake: IV 460 330 70 CO/CI 160 90 30 Lactated Ringers 1,000 ml 300 240 40 @ 20 mls/hr IV .Q24H [facility] Rx#:[id number] Intake, IV Titration 964.184 356.054 36.411 Amount Albumin Human 5% 250 ml 500 In Empty Bag 1 bag @ 250 mls/hr IVPB ONCE [facility] Rx#: [id number] Amiodarone 450 mg In 241.949 92.224 Dextrose 5% in Water 250 ml @ 0.5 MG/MIN 16.667 mls/hr IV .Q15H PRN Rx#: [id number] Insulin Regular 100 unit 37.226 9.494 36.411 In Sodium Chloride 0.9% 100 ml @ Per Protocol IV .Q0M [facility] Rx#:[id number] propofoL 1,000 mg In 185.009 254.336 Empty Bag 1 bag @ Titrate IV .Q0M [facility] Rx#: [id number] Tube Feeding 230 380 80 Blood Product 310 Rc As-1 Unit 310 [id number] Other 180 90 30 Output: Chest Tube Drainage 115 55 15 Mediastinal 40 medistinal #1 75 55 15 Urine 1040 510 90 Other: Voiding Method Indwelling Catheter Indwelling Catheter ABP, PAP, CO, CI - Last Documented Arterial Blood Pressure 117/43 Pulmonary Artery Pressure 58/28 Cardiac Output 4.5 Cardiac Index 2.3 - Exam CONSTITUTIONAL: Lying in bed in the intensive care unit, remain sedated on propofol drip at 40 mcg/kg/m, appears comfortable, cooperative, no apparent acute distress. HEENT: Neck is supple, no JVD, no lymphadenopathy. Right IJ Cordis and [place]- Magdaleno catheter in place and functioning. RESPIRATORY: Lungs sounds essentially clear throughout, diminished to his bilateral bases. Respirations are symmetrical and nonlabored with mechanical ventilator support. Current mechanical ventilator settings are as follows, assist-control 24, TV 450, FiO2 70% and a PEEP of 10. CARDIOVASCULAR: Regular rhythm and rate. S1 and S2 present, negative for S3, gallop or murmur. Sternum is stable. Palpable peripheral pulses bilaterally, no edema to his bilateral lower extremities. Heart hugger in place. Knee- high ELEONORA hose and sequential compression devices in place to his bilateral lower extremities. Bedside telemetry showing normal sinus rhythm with a right bundle branch block heart rate 6 bpm, occasional junctional rhythm with heart rate in the 50s. GASTROINTESTINAL: Abdomen soft, nontender, nondistended. Active bowel sounds present 4 quadrants. No guarding or rigidity. OG tube in place with vital hi gh-protein to feeding infusing at 40 mL per hour and automatic water flushes. GENITOURINARY: Espinal present for accurate I&O, draining clear yellow urine. Output 350 mL in the last 8 hours. INTEGUMENTARY: Skin is warm and dry with no evidence of clubbing or cyanosis. Midline sternal incision clean dry and well approximated, covered with dry intact dressing. Bilateral lower extremity EVH sites well approximated without redness or drainage. NEUROLOGIC: Sedated on propofol drip at 40 mcg/kg/m. PERRLA. No focal deficits. MUSKULOSKELETAL: Able to move all extremities, generalized weakness. PSYCHIATRIC: Unable to accurately assess at this time as the patient remains sedated on propofol drip and remains intubated with mechanical ventilator support. INVASIVE LINES AND TUBES: Left pleural chest tube present and connected to low continuous wall suction, no air leaks present. Left pleural chest tube with 55 mL output of thin serosanguineous drainage in the last 24 hours. Atrial and v entricular epicardial pacemaker wires present, connected to bedside pacemaker generator, VVI mode with a backup of 50 BPM. Right internal jugular [place]/Cordis, right radial arterial line present. Last CO 4.7, CI 2.4, PA 51/22 and CVP 7 mmHg. - Allied health notes Allied health notes reviewed: nursing - Labs CBC & Chem 7: 11/08/20 04:30 11/08/20 04:30 Labs: Abnormal Lab Results - Last 24 Hours (Table) 11/07/20 11/07/20 11/07/20 Range/Units 10:04 11:22 11:36 RBC (4.30-5.90) m/uL Hgb (13.0-17.5) gm/dL Hct (39.0-53.0) % RDW (11.5-15.5) % Plt Count (150-450) k/uL Neutrophils # (Manual) (1.3-7.7) k/uL Lymphocytes # (Manual) (1.0-4.8) k/uL Nucleated RBCs (0-0) /100 WBC ABG pH (7.35-7.45) ABG pO2 65 L (83-108) mmHg ABG HCO3 29 H (21-25) mmol/L ABG Total CO2 30 H (19-24) mmol/L ABG O2 Saturation 93.4 L (94-97) % Chloride (98-107) mmol/L BUN (9-20) mg/dL Glucose (74-99) mg/dL POC Glucose (mg/dL) 158 H 140 H (75-99) mg/dL Calcium (8.4-10.2) mg/dL Total Protein (6.3-8.2) g/dL Albumin (3.5-5.0) g/dL 11/07/20 11/07/20 11/07/20 Range/Units 12:05 13:59 14:15 RBC (4.30-5.90) m/uL Hgb (13.0-17.5) gm/dL Hct (39.0-53.0) % RDW (11.5-15.5) % Plt Count (150-450) k/uL Neutrophils # (Manual) (1.3-7.7) k/uL Lymphocytes # (Manual) (1.0-4.8) k/uL Nucleated RBCs (0-0) /100 WBC ABG pH 7.46 H (7.35-7.45) ABG pO2 (83-108) mmHg ABG HCO3 28 H (21-25) mmol/L ABG Total CO2 29 H (19-24) mmol/L ABG O2 Saturation 97.9 H (94-97) % Chloride (98-107) mmol/L BUN (9-20) mg/dL Glucose (74-99) mg/dL POC Glucose (mg/dL) 148 H 125 H (75-99) mg/dL Calcium (8.4-10.2) mg/dL Total Protein (6.3-8.2) g/dL Albumin (3.5-5.0) g/dL 11/07/20 11/07/20 11/07/20 Range/Units 15:53 17:54 20:13 RBC (4.30-5.90) m/uL Hgb (13.0-17.5) gm/dL Hct (39.0-53.0) % RDW (11.5-15.5) % Plt Count (150-450) k/uL Neutrophils # (Manual) (1.3-7.7) k/uL Lymphocytes # (Manual) (1.0-4.8) k/uL Nucleated RBCs (0-0) /100 WBC ABG pH (7.35-7.45) ABG pO2 (83-108) mmHg ABG HCO3 (21-25) mmol/L ABG Total CO2 (19-24) mmol/L ABG O2 Saturation (94-97) % Chloride (98-107) mmol/L BUN (9-20) mg/dL Glucose (74-99) mg/dL POC Glucose (mg/dL) 124 H 168 H 141 H (75-99) mg/dL Calcium (8.4-10.2) mg/dL Total Protein (6.3-8.2) g/dL Albumin (3.5-5.0) g/dL 11/07/20 11/08/20 11/08/20 Range/Units 23:12 00:03 01:55 RBC (4.30-5.90) m/uL Hgb (13.0-17.5) gm/dL Hct (39.0-53.0) % RDW (11.5-15.5) % Plt Count (150-450) k/uL Neutrophils # (Manual) (1.3-7.7) k/uL Lymphocytes # (Manual) (1.0-4.8) k/uL Nucleated RBCs (0-0) /100 WBC ABG pH (7.35-7.45) ABG pO2 (83-108) mmHg ABG HCO3 (21-25) mmol/L ABG Total CO2 (19-24) mmol/L ABG O2 Saturation (94-97) % Chloride (98-107) mmol/L BUN (9-20) mg/dL Glucose (74-99) mg/dL POC Glucose (mg/dL) 131 H 143 H 140 H (75-99) mg/dL Calcium (8.4-10.2) mg/dL Total Protein (6.3-8.2) g/dL Albumin (3.5-5.0) g/dL 11/08/20 11/08/20 11/08/20 Range/Units 03:20 04:29 04:30 RBC 2.43 L (4.30-5.90) m/uL Hgb 8.1 L (13.0-17.5) gm/dL Hct 23.9 L (39.0-53.0) % RDW 18.5 H (11.5-15.5) % Plt Count 104 L (150-450) k/uL Neutrophils # (Manual) 9.20 H (1.3-7.7) k/uL Lymphocytes # (Manual) 0.74 L (1.0-4.8) k/uL Nucleated RBCs 1 H (0-0) /100 WBC ABG pH (7.35-7.45) ABG pO2 44 L* (83-108) mmHg ABG HCO3 28 H (21-25) mmol/L ABG Total CO2 29 H (19-24) mmol/L ABG O2 Saturation 79.9 L (94-97) % Chloride (98-107) mmol/L BUN (9-20) mg/dL Glucose (74-99) mg/dL POC Glucose (mg/dL) 156 H (75-99) mg/dL Calcium (8.4-10.2) mg/dL Total Protein (6.3-8.2) g/dL Albumin (3.5-5.0) g/dL 11/08/20 11/08/20 11/08/20 Range/Units 04:30 04:52 06:29 RBC (4.30-5.90) m/uL Hgb (13.0-17.5) gm/dL Hct (39.0-53.0) % RDW (11.5-15.5) % Plt Count (150-450) k/uL Neutrophils # (Manual) (1.3-7.7) k/uL Lymphocytes # (Manual) (1.0-4.8) k/uL Nucleated RBCs (0-0) /100 WBC ABG pH (7.35-7.45) ABG pO2 (83-108) mmHg ABG HCO3 28 H (21-25) mmol/L ABG Total CO2 29 H (19-24) mmol/L ABG O2 Saturation 98.1 H (94-97) % Chloride 108 H (98-107) mmol/L BUN 25 H (9-20) mg/dL Glucose 146 H (74-99) mg/dL POC Glucose (mg/dL) 160 H (75-99) mg/dL Calcium 8.0 L (8.4-10.2) mg/dL Total Protein 4.9 L (6.3-8.2) g/dL Albumin 2.7 L (3.5-5.0) g/dL 11/08/20 Range/Units 07:59 RBC (4.30-5.90) m/uL Hgb (13.0-17.5) gm/dL Hct (39.0-53.0) % RDW (11.5-15.5) % Plt Count (150-450) k/uL Neutrophils # (Manual) (1.3-7.7) k/uL Lymphocytes # (Manual) (1.0-4.8) k/uL Nucleated RBCs (0-0) /100 WBC ABG pH (7.35-7.45) ABG pO2 (83-108) mmHg ABG HCO3 (21-25) mmol/L ABG Total CO2 (19-24) mmol/L ABG O2 Saturation (94-97) % Chloride (98-107) mmol/L BUN (9-20) mg/dL Glucose (74-99) mg/dL POC Glucose (mg/dL) 169 H (75-99) mg/dL Calcium (8.4-10.2) mg/dL Total Protein (6.3-8.2) g/dL Albumin (3.5-5.0) g/dL Microbiology - Last 24 Hours (Table) 11/06/20 08:26 Urine Culture - Final Urine,Voided 11/06/20 08:14 Gram Stain - Preliminary Sputum Sputum Culture - Preliminary Gram Neg Bacilli - Imaging and Cardiology Chest x-ray: report reviewed, image reviewed Assessment and Plan Assessment: 1. Severe triple-vessel coronary artery disease, status post three-vessel jennifer nary artery bypass grafting surgery 2. Moderate to severe aortic valve stenosis, status post aortic valve replacement with a #27 mm De Le[place] Inspiris bioprosthetic aortic valve 3. Pulmonary hypertension 4. Known right upper lobe pulmonary nodule, suspicious for malignancy based on PET scan findings 5. COPD with a preoperative FEV1 66% of predicted value and a DLCO 18% of predicted value 6. Known right subclavian artery stenosis 7. History of Hypertension 8. Hyperlipidemia 9. History of coronary artery disease with previous stenting of the right coronary artery 10. Remote history of extensive right upper lobe pneumonia with previous wedge biopsy in 2009 11. Remote history of nicotine dependence, quit smoking over 25 years ago 12. Postoperative anemia and thrombocytopenia, expected given hemodilution and cardiopulmonary bypass 13. Prolonged mechanical ventilator support, secondary to acute respiratory failure with ongoing hypoxemia 14. Paroxysmal atrial fibrillation, a known common occurrence after cardiac surgery, currently in normal sinus rhythm Plan: 1. Continue to optimize medical management with aspirin, statin, zetia, and beta paul. Will increase metoprolol tartrate 25 mg per OG tube twice a day. 2. Sputum culture showing Citrobacter freundii and is being started on cefepime 2 g IV piggyback every 12 hours. Urine culture final report shows no growth. 3. Wean to extubate with ventilator management, Solu-Medrol and bronchodilators management per Dr. Espino's recommendations. Continue to monitor ABGs. 4. Once extubated encourage incentive spirometry use 10 times every hour while awake , increase activity as tolerated with PT/OT/cardiac rehab following. 5. Continue to monitor daily labs and chest x-rays. Electrolyte replacement per protocol. No transfusion today. 6. Pain control with current medication regimen. 7. GI/DVT prophylaxis. HIT panel results negative for HIT. Heparin subcu 5000 units every 8 hours restarted. 8. Insulin management per primary care service. The patient is not diabetic with preoperative hemoglobin A1c 5.4%, needs tight blood sugar control to promote sternal union and prevent infection. 9. Keep left radial arterial line in place. 10. Continue Espinal catheter for another for strict accurate intake and output. Continue to monitor daily weights. 11. Keep right IJ cordis and [place]-Magdaleno catheter in place for hemodynamic monitoring. 12. Wean propofol as tolerated for mechanical ventilator weaning. 13. Continue atrial and ventricular pacemaker wires with pacemaker generator to a VVI backup of 50 BPM. 14. Keep left pleural chest tube in place to low continuous wall suction -20 cm H2O. 15. Continue tube feedings, increase to feeding goal rate per dietitian's rec ommendations. Currently infusing at 40 mL per hour with automatic water flushes 30 mL Q4 hours. 16. Continue amiodarone 400 mg per OG tube twice a day for atrial fib ablation prophylaxis. 17. More recommendations to follow based on patient's clinical course. Time with Patient: Greater than 30
[2020-11-08 18:05] LABS: Glucose,Whole Blood 158 mg/dL (75-99)
--- NOTE | 2020-11-08 19:58 | P.PN ---
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 Currently he remains in the ICU intubated and sedated. He is on aspirin 325 mg. Also he has evidence of pneumonia secondary to Citrobacter covered with cefepime, he had low-grade fever 2-3 days ago at 100.8, been afebrile for the last 24 hours. Also he is on Solu-Medrol 40 mg for his COPD exacerbation. He is also on insulin drip Several consultants on the case He is tachypneic but blood pressure is a stable Labs reviewed and they looked unremarkable He is kept on aspirin 325 mg daily Objective - Vital Signs Vital signs: Vital Signs Temp 97.7 F 11/08/20 14:00 Pulse 60 11/08/20 14:00 Resp 28 H 11/08/20 14:00 BP 111/59 11/08/20 07:30 Pulse Ox 97 11/08/20 14:00 Intake & Output 11/07/20 11/08/20 11/08/20 18:59 06:59 18:59 Intake Total 2144.184 0446.179 6162.147 Output Total 1155 565 520 Balance 989.184 591.054 782.147 Weight 93.2 kg 93.2 kg Intake: IV 460 330 230 CO/CI 160 90 70 Lactated Ringers 1,000 ml 300 240 160 @ 20 mls/hr IV .Q24H [facility] Rx#:[id number] Intake, IV Titration 964.184 356.054 542.147 Amount Albumin Human 5% 250 ml @ 250 0 mls/hr IVPB .STK-MED ONE Rx#:[id number] Albumin Human 5% 250 ml 500 In Empty Bag 1 bag @ 250 mls/hr IVPB ONCE STA Rx#: [id number] Amiodarone 450 mg In 241.949 92.224 Dextrose 5% in Water 250 ml @ 0.5 MG/MIN 16.667 mls/hr IV .Q15H PRN Rx#: [id number] Cefepime 2 gm In Sodium 100 Chloride 0.9% 100 ml @ 25 mls/hr IVPB Q12HR [facility] Rx #:[id number] Insulin Regular 100 unit 37.226 9.494 62.183 In Sodium Chloride 0.9% 100 ml @ Per Protocol IV .Q0M [facility] Rx#:[id number] propofoL 1,000 mg In 185.009 254.336 129.964 Empty Bag 1 bag @ Titrate IV .Q0M [facility] Rx#: [id number] Tube Feeding 230 380 440 Blood Product 310 Rc As-1 Unit 310 [id number] Other 180 90 90 Output: Chest Tube Drainage 115 55 35 Mediastinal 40 medistinal #1 75 55 35 Urine 1040 510 485 Other: Voiding Method Indwelling Catheter Indwelling Catheter Indwelling Catheter ABP, PAP, CO, CI - Last Documented Arterial Blood Pressure 107/42 Pulmonary Artery Pressure 54/26 Cardiac Output 7.2 Cardiac Index 3.6 - Exam -GENERAL: The patient is sedated and intubated HEENT: Pupils are round and equally reacting to light. EOMI. No scleral icterus. No conjunctival pallor. Normocephalic, atraumatic. No pharyngeal erythema. No thyromegaly. CARDIOVASCULAR: S1 and S2 present. No murmurs, rubs, or gallops. PULMONARY: Chest is clear to auscultation, no wheezing or crackles. ABDOMEN: Soft, nontender, nondistended, normoactive bowel sounds. No palpable organomegaly. MUSCULOSKELETAL: No joint swelling or deformity. EXTREMITIES: No cyanosis, clubbing, or pedal edema. NEUROLOGICAL: Gross neurological examination did not reveal any focal deficits. SKIN: No rashes. no petechiae. - Labs CBC & Chem 7: 11/08/20 04:30 11/08/20 04:30 Labs: Abnormal Lab Results - Last 24 Hours (Table) 11/07/20 11/07/20 11/07/20 Range/Units 13:59 14:15 15:53 RBC (4.30-5.90) m/uL Hgb (13.0-17.5) gm/dL Hct (39.0-53.0) % RDW (11.5-15.5) % Plt Count (150-450) k/uL Neutrophils # (Manual) (1.3-7.7) k/uL Lymphocytes # (Manual) (1.0-4.8) k/uL Nucleated RBCs (0-0) /100 WBC ABG pH 7.46 H (7.35-7.45) ABG pO2 (83-108) mmHg ABG HCO3 28 H (21-25) mmol/L ABG Total CO2 29 H (19-24) mmol/L ABG O2 Saturation 97.9 H (94-97) % Chloride (98-107) mmol/L BUN (9-20) mg/dL Glucose (74-99) mg/dL POC Glucose (mg/dL) 125 H 124 H (75-99) mg/dL Calcium (8.4-10.2) mg/dL Total Protein (6.3-8.2) g/dL Albumin (3.5-5.0) g/dL 11/07/20 11/07/20 11/07/20 Range/Units 17:54 20:13 23:12 RBC (4.30-5.90) m/uL Hgb (13.0-17.5) gm/dL Hct (39.0-53.0) % RDW (11.5-15.5) % Plt Count (150-450) k/uL Neutrophils # (Manual) (1.3-7.7) k/uL Lymphocytes # (Manual) (1.0-4.8) k/uL Nucleated RBCs (0-0) /100 WBC ABG pH (7.35-7.45) ABG pO2 (83-108) mmHg ABG HCO3 (21-25) mmol/L ABG Total CO2 (19-24) mmol/L ABG O2 Saturation (94-97) % Chloride (98-107) mmol/L BUN (9-20) mg/dL Glucose (74-99) mg/dL POC Glucose (mg/dL) 168 H 141 H 131 H (75-99) mg/dL Calcium (8.4-10.2) mg/dL Total Protein (6.3-8.2) g/dL Albumin (3.5-5.0) g/dL 11/08/20 11/08/20 11/08/20 Range/Units 00:03 01:55 03:20 RBC (4.30-5.90) m/uL Hgb (13.0-17.5) gm/dL Hct (39.0-53.0) % RDW (11.5-15.5) % Plt Count (150-450) k/uL Neutrophils # (Manual) (1.3-7.7) k/uL Lymphocytes # (Manual) (1.0-4.8) k/uL Nucleated RBCs (0-0) /100 WBC ABG pH (7.35-7.45) ABG pO2 44 L* (83-108) mmHg ABG HCO3 28 H (21-25) mmol/L ABG Total CO2 29 H (19-24) mmol/L ABG O2 Saturation 79.9 L (94-97) % Chloride (98-107) mmol/L BUN (9-20) mg/dL Glucose (74-99) mg/dL POC Glucose (mg/dL) 143 H 140 H (75-99) mg/dL Calcium (8.4-10.2) mg/dL Total Protein (6.3-8.2) g/dL Albumin (3.5-5.0) g/dL 11/08/20 11/08/20 11/08/20 Range/Units 04:29 04:30 04:30 RBC 2.43 L (4.30-5.90) m/uL Hgb 8.1 L (13.0-17.5) gm/dL Hct 23.9 L (39.0-53.0) % RDW 18.5 H (11.5-15.5) % Plt Count 104 L (150-450) k/uL Neutrophils # (Manual) 9.20 H (1.3-7.7) k/uL Lymphocytes # (Manual) 0.74 L (1.0-4.8) k/uL Nucleated RBCs 1 H (0-0) /100 WBC ABG pH (7.35-7.45) ABG pO2 (83-108) mmHg ABG HCO3 (21-25) mmol/L ABG Total CO2 (19-24) mmol/L ABG O2 Saturation (94-97) % Chloride 108 H (98-107) mmol/L BUN 25 H (9-20) mg/dL Glucose 146 H (74-99) mg/dL POC Glucose (mg/dL) 156 H (75-99) mg/dL Calcium 8.0 L (8.4-10.2) mg/dL Total Protein 4.9 L (6.3-8.2) g/dL Albumin 2.7 L (3.5-5.0) g/dL 11/08/20 11/08/20 11/08/20 Range/Units 04:52 06:29 07:59 RBC (4.30-5.90) m/uL Hgb (13.0-17.5) gm/dL Hct (39.0-53.0) % RDW (11.5-15.5) % Plt Count (150-450) k/uL Neutrophils # (Manual) (1.3-7.7) k/uL Lymphocytes # (Manual) (1.0-4.8) k/uL Nucleated RBCs (0-0) /100 WBC ABG pH (7.35-7.45) ABG pO2 (83-108) mmHg ABG HCO3 28 H (21-25) mmol/L ABG Total CO2 29 H (19-24) mmol/L ABG O2 Saturation 98.1 H (94-97) % Chloride (98-107) mmol/L BUN (9-20) mg/dL Glucose (74-99) mg/dL POC Glucose (mg/dL) 160 H 169 H (75-99) mg/dL Calcium (8.4-10.2) mg/dL Total Protein (6.3-8.2) g/dL Albumin (3.5-5.0) g/dL 11/08/20 11/08/20 11/08/20 Range/Units 09:32 10:21 11:13 RBC (4.30-5.90) m/uL Hgb (13.0-17.5) gm/dL Hct (39.0-53.0) % RDW (11.5-15.5) % Plt Count (150-450) k/uL Neutrophils # (Manual) (1.3-7.7) k/uL Lymphocytes # (Manual) (1.0-4.8) k/uL Nucleated RBCs (0-0) /100 WBC ABG pH 7.46 H (7.35-7.45) ABG pO2 79 L (83-108) mmHg ABG HCO3 28 H (21-25) mmol/L ABG Total CO2 30 H (19-24) mmol/L ABG O2 Saturation (94-97) % Chloride (98-107) mmol/L BUN (9-20) mg/dL Glucose (74-99) mg/dL POC Glucose (mg/dL) 154 H 153 H (75-99) mg/dL Calcium (8.4-10.2) mg/dL Total Protein (6.3-8.2) g/dL Albumin (3.5-5.0) g/dL 11/08/20 Range/Units 13:28 RBC (4.30-5.90) m/uL Hgb (13.0-17.5) gm/dL Hct (39.0-53.0) % RDW (11.5-15.5) % Plt Count (150-450) k/uL Neutrophils # (Manual) (1.3-7.7) k/uL Lymphocytes # (Manual) (1.0-4.8) k/uL Nucleated RBCs (0-0) /100 WBC ABG pH (7.35-7.45) ABG pO2 (83-108) mmHg ABG HCO3 (21-25) mmol/L ABG Total CO2 (19-24) mmol/L ABG O2 Saturation (94-97) % Chloride (98-107) mmol/L BUN (9-20) mg/dL Glucose (74-99) mg/dL POC Glucose (mg/dL) 132 H (75-99) mg/dL Calcium (8.4-10.2) mg/dL Total Protein (6.3-8.2) g/dL Albumin (3.5-5.0) g/dL Microbiology - Last 24 Hours (Table) 11/06/20 08:14 Gram Stain - Final Sputum Sputum Culture - Final Citrobacter freundii 11/06/20 08:26 Urine Culture - Final Urine,Voided Assessment and Plan Assessment: Severe triple coronary artery disease and aortic stenosis, status post CABG and aortic valve replacement on 11/04 Acute COPD exacerbation Pneumonia secondary to Citrobacter Right upper lung nodule highly suspicious for malignancy per PET scan Possible diabetes mellitus Plan: This is a pleasant 75 years old male status post CABG and aortic valve replacement. Also with pneumonia and COPD Continue with cefepime and Solu-Medrol Pulmonary/critical care team will help with vent management Cardiothoracic surgery primary team on the case [employer] team on the case Continue with aspirin Continue with insulin and monitor her glucose Labs and medication were reviewed.. Continue same treatment. Continue with symptomatic treatment. Resume home medication. Monitor lytes and vitals. DVT and GI prophylaxis. Further recommendationsas per clinical course of the patient DVT prophylaxis: Subcutaneous heparin GI Prophylaxis: Ppi Prognosis is guarded Thank you for consulting us
[2020-11-08 20:16] LABS: Glucose,Whole Blood 133 mg/dL (75-99)
[2020-11-08] MEDS: SENNOSIDES-DOCUSATE SODIUM 1 EACH TAB PO SCH (21:49)
[2020-11-08] MEDS: ATORVASTATIN 80 MG TAB PO SCH (21:49)
[2020-11-08] MEDS: EZETIMIBE 10 MG TAB PO SCH (22:01)
[2020-11-08 22:18] LABS: Glucose,Whole Blood 137 mg/dL (75-99)
[2020-11-08] MEDS ORDERED: HYDROmorphone 1 MG/ML 1 ML SYRINGE IVP STA (23:06)
[2020-11-08] MEDS: METOPROLOL TARTRATE 25 MG TAB PO SCH (23:17)
[2020-11-08] MEDS ORDERED: SODIUM CHLORIDE 0.9% 500 ML 500 ML IV ONE (23:25)
--- NOTE | 2020-11-08 23:33 | XR ---
EXAMINATION TYPE: XR chest 1V portable DATE OF EXAM: 11/08/2020 COMPARISON: 11/08/2020 HISTORY: Respiratory failure TECHNIQUE: Single view FINDINGS: Endotracheal tube is 5 cm from the obi. There is left-sided chest tube. There are chest leads. There is right jugular catheter with tip in the main pulmonary artery. There is nasogastric tu be in the stomach. There is patchy pulmonary airspace infiltrates in the lower lung moore. There is also some infiltrate left upper lobe. No pneumothorax. IMPRESSION: Bilateral patchy pneumonia is the same or slightly worse than exam this morning. Heart fa ilure not excluded. No pneumothorax.
[2020-11-09 00:18] LABS: Glucose,Whole Blood 114 mg/dL (75-99)
[2020-11-09] MEDS ORDERED: SODIUM CHLORIDE 0.9% 500 ML 250 ML IV ONE (00:55)
[2020-11-09] MEDS ORDERED: DEXTROSE/WATER 1 250ML.BAG with DOPamine DRIP 800 MG IV SCH (01:00)
[2020-11-09 01:06] LABS: Glucose,Whole Blood 128 mg/dL (75-99)
[2020-11-09] MEDS: DOPamine DRIP 800 MG in DEXTROSE/WATER 1 250ML.BAG IV SCH (01:59)
[2020-11-09 02:06] LABS: Glucose,Whole Blood 150 mg/dL (75-99)
[2020-11-09 02:47] LABS: ABG Base Excess 3.8 mmol/L; ABG HCO3 29 mmol/L (21-25); ABG Oxygen Saturation 91.7 % (94-97); ABG PCO2 47 mmHg (35-45); ABG PO2 64 mmHg (83-108); ABG TCO2 30 mmol/L (19-24)
[2020-11-09 03:11] LABS: Glucose,Whole Blood 144 mg/dL (75-99)
[2020-11-09 04:05] LABS: Glucose,Whole Blood 136 mg/dL (75-99)
[2020-11-09 04:33] LABS: Anisocytosis Slight; HCT 23.4 % (39.0-53.0); HGB 7.7 gm/dL (13.0-17.5); MCH 32.8 pg (25.0-35.0); MCV 99.3 fL (80.0-100.0); Macrocytosis Slight; Mean Platelet Volume 8.7; Platelet Count 136 k/uL (150-450); RBC 2.36 m/uL (4.30-5.90); RDW 18.8 % (11.5-15.5); WBC 15.4 k/uL (3.8-10.6)
[2020-11-09 04:50] LABS: ALT 15 U/L (4-49); AST 29 U/L (17-59); African American GFR (CKD) >90 (>60 ml/min/1.73 sqM); Albumin 2.7 g/dL (3.5-5.0); Alkaline Phosphatase 52 U/L (38-126); Anion Gap 3 mmol/L; Blood Urea Nitrogen 26 mg/dL (9-20); Carbon Dioxide 28 mmol/L (22-30); Chloride 110 mmol/L (98-107); Glucose 127 mg/dL (74-99); Non-African American GFR(CKD) >90 (>60 ml/min/1.73 sqM); Potassium 4.2 mmol/L (3.5-5.1); Sodium 141 mmol/L (137-145); Total Bilirubin 0.7 mg/dL (0.2-1.3)
[2020-11-09 04:59] LABS: Band Neutrophils % 6 %; Eosinophils # (M) 0.15 k/uL (0-0.7); Lymphocytes # (M) 0.31 k/uL (1.0-4.8); Metamyelocytes # (M) 0.15 k/uL (0); Metamyelocytes % 1 %; Monocytes # (M) 1.08 k/uL (0-1.0); Neutrophils % (M) 84 %; Nucleated Red Blood Cells 0 /100 WBC (0-0); Total Cells Counted 200
[2020-11-09 05:00] LABS: Anisocytosis (M) Present; Polychromasia Present
[2020-11-09 05:22] LABS: Allen Test Performed? no
[2020-11-09] MEDS: HYDROcodone/APAP 5-325MG 1 EACH TAB PO PRN ×2 (06:08→11:00)
[2020-11-09 06:18] LABS: Glucose,Whole Blood 149 mg/dL (75-99)
[2020-11-09 07:09] LABS: Glucose,Whole Blood 145 mg/dL (75-99)
--- NOTE | 2020-11-09 07:20 | XR ---
EXAMINATION TYPE: XR chest 1V portable DATE OF EXAM: 11/09/2020 COMPARISON: 11/08/2020 HISTORY: SOB, Follow Up FINDINGS: Indwelling tubes and catheters are unchanged. Scattered infiltrates persist greatest at the lung bases without significant interval change. Stable appearance of the cardio-mediastinal structures at this time. Pleural effusion unchanged. IMPRESSION: 1. Stable portable chest. Clinical correlation and follow up until resolution is recommended.
--- NOTE | 2020-11-09 07:26 | P.PN ---
Subjective Progress Note Date: 11/09/20 This is a 75-year-old male patient, underwent an aortic valve replacement with a bioprosthetic aortic valve and three-vessel bypass surgery with vein grafts and the patient is currently postoperative in intensive care unit. The patient is known to have coronary artery disease. He has undergone previous coronary intervention stenting of an 80% RCA lesion. He was symptomatic and further investigation revealed triple-vessel disease and for that reason he was taken to the operating room. He is also moderately severe aortic stenosis. Currently is sedated on propofol which is running at 25 mg/kg per minute. Is quite sedated on a mechanical ventilator. His blood gases showed a respiratory acidosis with a pH of 7.136 and a pCO2 of 73 and pO2 of 71. This was an assist-control mode at the rate of 14 with a tidal volume of 450 and FiO2 of 1 and a PEEP of 5. Since then, the PEEP has been increased up to 8, and his respiratory rate is up to 24. Current pulse ox on the monitor that 90%.. The patient has 2 mediastinal chest tubes and 1 pleural chest tube. Output from mediastinal chest tube has been around 450 mL and output from the left pleural chest tube is been around 130 mL since the patient up from the operating room. The patient is hemodynamically supported with Primacor at 0.25 mcg/kg per minute and the patient is also on nitroglycerin drip at 25 g 5 minutes. Patient has a cardiac index of 2.3. Pulmonary artery pressures of 61/31. He is on insulin drip running at 1.5 units an hour. He has an adequate urine output. Chest x-ray postop showed adequate expansion of both lungs. No this of pneumothorax. ET tube is in good location. [place] remains in a good location. The patient is an OG tube and 2 mediastinal and 1 pleural chest tube on of the mandible location there is no evidence of any pneumothorax. Cardiac rhythm is sinus. 11/05/2020, the patient remains on a mechanical ventilator. I was unable to wean him yesterday because of his limited oxygenation. Overnight, the patient was kept on a PEEP of 8 and his FiO2 is down to 90% and he has a tidal volume of 450 with a rate of 24. His peak airway pressure this morning is at 24. The morning blood gases showed a pH of 7.44 with a pCO2 of 41 and pO2 of 65. Based on that, I increased the PEEP up to 10 and 30. Blood gases showed a pH of 7.45 with a pCO2 of 40 and pO2 of 92. His FiO2 subsequently was found to 60%. This current pulse ox is 93%. He remains sedated with propofol and he is currently on 20 mcg/kg per minute and is well rested for now. He has 2 mediastinal chest tubes and a left pleural chest tube. Output from the mediastinal chest tube has been 10-20 mL's an hour and from the pleural chest tube is in order of 10-20 mL an hour. The patient's is hemodynamically stable. He is off milrinone for now. Cardiac index is in order of 2.4 with an output of 4.8. There has been impr ovement in the pulmonary artery pressures which is dropped down to 43/25. His CVP is currently at 8. His morning hemoglobin was at 7.5 and the patient was given a unit of packed RBC. He has a RHINA drain in his left lower extremity, output is bloody and minimal at this point in time. His cardiac rhythm is sinus. He is on an insulin drip running at 1.5 units an hour. He is off the nitroglycerin drip. He was given IV Solu Medrol yesterday regarding COPD and some increased bronchospasm and wheeze. He is also on bronchodilators. Chest x-ray from today shows adequate expansion of both lungs. There is a right upper lobe pulmonary nodule that was evident on the previous PET scan. Chronic no dularity and scarring in the left upper lobe also. No sizable pneumothorax. Minimal atelectatic changes and effusion the lung bases. Mediastinal chest tubes and left pleural chest tube of been in good location. Count is up from 82 down to 67. Also is following some simple commands and he can be aroused out of his sedation upon stimulation. 11/06/2020 him I'm seeing this patient for a follow-up. The patient remains intubated. We had some issues with his oxygenation and for that reason his extubation has been delayed. In summary, the patient remains on a mechanical ventilator. This morning he is an assist-control mode at the rate of 24 with a tidal volume of 450 and FiO2 of 60% with a PEEP of 12. Blood gases from today shows a pH of 7.46 orally 6 with a pCO2 of 38 and pO2 of 75. Chest x-ray showing some limited interstitial edema/pulmonary edema and the patient would benefit from some diuretics. His coronary artery pressures have been lower postop and is currently at the pressure of 51/26. CVP is at 7. Cardiac output is 5.3 with an index of 2.7. He is off milrinone. Is off the nitroglycerin drip. He is still on insulin drip at 1.5 units an hour. The output from the mediastinal tube has been 300 over the past 24 hours and output from the left pleural chest tube is 200 mL over the past 24 hours. Output remains somewhat bloody. No evidence of any air leak. No evidence of any pneumothorax on his chest x-ray. He remains sedated with propofol which is running at 30 mg/kg/m. He did have some loose liquidy bloody rest of the secretions which is being suctioned out of his orotracheal tube. Otherwise, his cardiac rhythm remains sinus. Occasional junctional rhythm was also noted. RHINA drain from his left lower extremity has been removed. On today's evaluation on 11/07/2020 patient is seen in the intensive care unit, sedated and intubated, on assist-control mode of ventilation, with a rate of 24, M is 450, FiO2 of 60% and PEEP of 12. This morning his blood gases showed pO2 of 76, pCO2 of 38, and pH is 7.46, today's chest x-ray has been reviewed showing no evidence of pneumothorax, mild scattered ulnar edema, and left lower lobe atelectasis. Patient received a dose of IV Lasix yesterday, however he is still in +200 mL fluid balance over the last 24 hours, he was given an additional dose of IV Lasix this morning per CT surgery. Yesterday an attempt was made to wean down FiO2 however patient's FiO2 down to 50%, however follow-up blood gas showed severe worsening of oxygenation, and pO2 of 46%. His PEEP was increased to 12, and FiO2 at 60%. In addition patient went into A. fib with RVR last night, he was started on amiodarone infusion which is currently infusing at 0.5 mg/m. He is on Diprivan at 40 mics per kilo per minute, lactated Ringer's at 50 ML per hour. Insulin at 3 units per hour. Currently patient remains in A. fib with a better controlled rate at 73 BPM, blood pressure is 122/54, PA pressures 61/31, CVP is 10, article output is 4.7, cardiac index is 2.4. Patient has one mediastinal and one mediastinal chest tube connected to left pleural chest tubes with minimal outputs overnight, no evidence of air leak noted. Epicardial wires are in place, grounded to the chest. Currently not on any anticoagulation, except for full dose aspirin 325 mg. Today's platelet count is 82, HIT antibodies have been sent and are pending right now, as today's blood work has been reviewed showing white blood cell, 12.7, hemoglobin is 7.9, actually lites are within normal limits, B1 is 21 creatinine 0.73. Patient did receive multip le blood products in the postoperative period, 3 units of packed red blood cells, 4 units of FFP, 1 unit of cryoprecipitate, and 1 unit of platelets. There has been no evidence of active bleeding, minimal output from the chest tubes. 11/08/2020, I'm seeing this patient for a follow-up. Unfortunately, the patient remains intubated on a mechanical ventilator and we have been able to wean this patient off the mechanical ventilator. The patient is postop day #4. His oxidation is become an ongoing issue. Unable to cut down the PEEP under 10 as the patient desaturates significantly. His chest x-ray showing some leg by the pulmonary infiltrates in the sputum is positive for Citrobacter and for that reason the patient was started on IV cefepime 2 g every 12 hours. Nevertheless, he has no leukocytosis or fever. Meanwhile, while being a mechanical ventilator, is an assist-control mode at the rate of 24 with a tidal volume of 450 and FiO2 of 70% with a PEEP of 10. Note that overnight, the patient desaturated and had to bring him up to 100% and The PEEP at 10. He was able to wean down as low as 70%. Subsequently, blood gases was done earlier this morning that showed a pH of 7.45 with a pCO2 of 40 and pO2 of 97 and this was on FiO2 of 80%. FiO2 was gradually wean down to 50% and a PEEP was brought down to 10. He was doing well and the subsequent blood gases showed a pH of 7.46 with a pCO2 of 40 and pO2 of 79. I was getting ready to wean this patient off the sedation try to assess his mental status. I dropped the PEEP down to 9 and subsequent his pulse ox dropped down to the low 80s. I to bring up the PEEP back to 10 lengthy is FiO2 back to 80%. Meanwhile, hemodynamically is doing well. His peak air pressures around 24 anesthetic pressures around 17. He is not any bronchospastic and wheezy. He is on a propofol drip running at 40 mg/kg/m. Is on lactated Ringer 20 mL's an hour. Cardiac index is at 2.5 with a output of 4.5. CVP is ranging between 4 and 6. Pulmonary artery pressures are 43/24. He is insulin drip is running at 4 units an hour. His cardiac rhythm is sinus. He did have a run of atrial fibrillation that was treated and the patient is back to normal sinus rhythm. The patient otherwise was started on enteral feeding for nutritional support and is currently on vital high protein at the rate of 40 mL an hour. Case has been discussed extensively with the cardiothoracic team. 11/09/2020, the patient is postop day #5. Remains intubated on a mechanical ventilator. Oxygenation has become an ongoing issue with the patient where we were not able to wean down his vent settings with a palpated oxygenation. Overnight, the patient was quite symptoms with a mechanical ventilator. I had to put him on a VC plus mode with tidal volume of 450, rate of 24, I time of 0.9 seconds, and currently is on a PEEP of 12 with an FiO2 of 70%. Chest x-ray showing bilateral fluffy pulmonary infiltrates consistent with pneumonia. His sputum cultures showing Citrobacter and the patient is ready covered with IV cefepime. No evidence of any pneumothorax. Left pleural chest tube will be pulled out today. Hemodynamically, the patient did have some hypotension overnight and he was given a bolus of 500 mL of fluid and currently is normotensive on no pressors. He is on a renal dose of dopamine and this was started by the cardiothoracic surgeon. The urine output is in order of 50-75 mL an hour. Pulmonary artery pressure 62/27. CVP is between 6 and 8. Cardiac output is 6.2 with an index of 3.1. Maintenance fluids are running at 20 mL an hour. Enteral feeding for nutritional support was started yesterday in the form of vital high protein and the patient is at the rate of 65 mL an hour. He is tolerating his enteral feeding for nutritional support. Cardiac rhythm is sinus. He did have a run of atrial fibrillation yesterday without a rapid ventricular control for around 5 hours. And he converted earlier this morning back to sinus. Patient is currently on propofol which is running at's an hour. The patient is adequately sedated. Is having some issues with pain. He was given oral [place]. Overnight he was also given Dilaudid for pain control which improved also synchrony with a mechanical ventilator. Overall condition remains critical. The patient has had difficulties in weaning off the respirator, probably due to development of a bilateral pneumonia in addition to some background COPD. Blood gases from today showed a pH of 7.4 with a pCO2 of 47 and pO2 of 64 and this was done and FiO2 of 70% with a PEEP of 12. Renal function stable at creatinine of 0.7. White cell count is up to 15.4 and the patient's hemoglobin is at 7.7. He continues to have a 6% bandemia. Objective - Vital Signs Vital signs: Vital Signs Temp 97.7 F 11/09/20 04:00 Pulse 89 11/09/20 06:00 Resp 33 H 11/09/20 06:00 BP 111/59 11/08/20 07:30 Pulse Ox 91 L 11/09/20 06:00 Intake & Output 11/08/20 11/09/20 11/09/20 18:59 06:59 18:59 Intake Total 2017.510 0411.789 Output Total 765 900 Balance 1084.614 874.789 Weight 96.4 kg Intake: IV 330 560 CO/CI 90 240 Cefepime 2 gm In Sodium 100 Chloride 0.9% 100 ml @ 25 mls/hr IVPB Q12HR [facility] Rx #:[id number] Lactated Ringers 1,000 ml 240 220 @ 20 mls/hr IV .Q24H [facility] Rx#:[id number] Intake, IV Titration 679.614 379.789 Amount Albumin Human 5% 250 ml @ 250 0 mls/hr IVPB .STK-MED [facility] Rx#:[id number] Cefepime 2 gm In Sodium 100 Chloride 0.9% 100 ml @ 25 mls/hr IVPB Q12HR [facility] Rx #:[id number] DOPamine DRIP 800 mg In 5.402 Dextrose/Water 1 250ml. bag @ 2 MCG/KG/MIN 3.495 mls/hr IV .Q24H [facility] Rx#: [id number] Insulin Regular 100 unit 83.620 47.083 In Sodium Chloride 0.9% 100 ml @ Per Protocol IV .Q0M [facility] Rx#:[id number] propofoL 1,000 mg In 245.994 327.304 Empty Bag 1 bag @ Titrate IV .Q0M [facility] Rx#: [id number] Tube Feeding 690 685 Other 150 150 Output: Chest Tube Drainage 85 30 medistinal #1 85 30 Urine 680 870 Other: Voiding Method Indwelling Catheter Indwelling Catheter ABP, PAP, CO, CI - Last Documented Arterial Blood Pressure 118/46 Pulmonary Artery Pressure 60/32 Cardiac Output 6.2 Cardiac Index 3.1 - Exam Gen. appearance the patient sedated, comfortable not in acute respiratory distress orogastric and orotracheal tube are both in place. The patient is quite successful mechanical ventilator. Head exam was generally normal. There was no scleral icterus or corneal arcus. Mucous membranes were moist. Neck was supple and without jugular venous distension, thyromegaly, or carotid bruits. Carotids were easily palpable bilaterally. There was no adenopathy. The patient has a right IJ [place]dal[place] catheter in place Lungs sounds are equal and symmetrical bilaterally. Patient has 2 mediastinal chest tube and 1 pleural chest tube. No evidence of any air leak. Output has been noted Cardiac exam revealed the PMI to be normally situated and sized. The rhythm was regular and no extrasystoles were noted during several minutes of auscultation. The first and second heart sounds were normal and physiologic splitting of the second heart sound was noted. There were no murmurs, rubs, clicks, or gallops. Sternum stable clean and intact. Abdominal exam revealed normal bowel sounds. The abdomen was soft, non-tender, and without masses, organomegaly, or appreciable enlargement of the abdominal aorta. Extremities the patient is a RHINA drain in the left lower extremity. Pulses are equal and symmetrical diminished. Extremities are cold. No cyanosis or clubbing. Neurologically sedated, pupils are equal and reactive to light. - Labs CBC & Chem 7: 11/09/20 04:05 11/09/20 04:05 Labs: Abnormal Lab Results - Last 24 Hours (Table) 11/08/20 11/08/20 11/08/20 Range/Units 04:30 07:59 09:32 WBC (3.8-10.6) k/uL RBC (4.30-5.90) m/uL Hgb (13.0-17.5) gm/dL Hct (39.0-53.0) % RDW (11.5-15.5) % Plt Count 104 L (150-450) k/uL Neutrophils # (Manual) 9.20 H (1.3-7.7) k/uL Lymphocytes # (Manual) 0.74 L (1.0-4.8) k/uL Monocytes # (Manual) (0-1.0) k/uL Metamyelocytes # (Man) (0) k/uL Nucleated RBCs 1 H (0-0) /100 WBC ABG pH (7.35-7.45) ABG pCO2 (35-45) mmHg ABG pO2 (83-108) mmHg ABG HCO3 (21-25) mmol/L ABG Total CO2 (19-24) mmol/L ABG O2 Saturation (94-97) % Chloride (98-107) mmol/L BUN (9-20) mg/dL Glucose (74-99) mg/dL POC Glucose (mg/dL) 169 H 154 H (75-99) mg/dL Calcium (8.4-10.2) mg/dL Total Protein (6.3-8.2) g/dL Albumin (3.5-5.0) g/dL 11/08/20 11/08/20 11/08/20 Range/Units 10:21 11:13 13:28 WBC (3.8-10.6) k/uL RBC (4.30-5.90) m/uL Hgb (13.0-17.5) gm/dL Hct (39.0-53.0) % RDW (11.5-15.5) % Plt Count (150-450) k/uL Neutrophils # (Manual) (1.3-7.7) k/uL Lymphocytes # (Manual) (1.0-4.8) k/uL Monocytes # (Manual) (0-1.0) k/uL Metamyelocytes # (Man) (0) k/uL Nucleated RBCs (0-0) /100 WBC ABG pH 7.46 H (7.35-7.45) ABG pCO2 (35-45) mmHg ABG pO2 79 L (83-108) mmHg ABG HCO3 28 H (21-25) mmol/L ABG Total CO2 30 H (19-24) mmol/L ABG O2 Saturation (94-97) % Chloride (98-107) mmol/L BUN (9-20) mg/dL Glucose (74-99) mg/dL POC Glucose (mg/dL) 153 H 132 H (75-99) mg/dL Calcium (8.4-10.2) mg/dL Total Protein (6.3-8.2) g/dL Albumin (3.5-5.0) g/dL 11/08/20 11/08/20 11/08/20 Range/Units 14:56 16:42 18:04 WBC (3.8-10.6) k/uL RBC (4.30-5.90) m/uL Hgb (13.0-17.5) gm/dL Hct (39.0-53.0) % RDW (11.5-15.5) % Plt Count (150-450) k/uL Neutrophils # (Manual) (1.3-7.7) k/uL Lymphocytes # (Manual) (1.0-4.8) k/uL Monocytes # (Manual) (0-1.0) k/uL Metamyelocytes # (Man) (0) k/uL Nucleated RBCs (0-0) /100 WBC ABG pH (7.35-7.45) ABG pCO2 (35-45) mmHg ABG pO2 (83-108) mmHg ABG HCO3 (21-25) mmol/L ABG Total CO2 (19-24) mmol/L ABG O2 Saturation (94-97) % Chloride (98-107) mmol/L BUN (9-20) mg/dL Glucose (74-99) mg/dL POC Glucose (mg/dL) 130 H 137 H 158 H (75-99) mg/dL Calcium (8.4-10.2) mg/dL Total Protein (6.3-8.2) g/dL Albumin (3.5-5.0) g/dL 11/08/20 11/08/20 11/09/20 Range/Units 20:15 22:17 00:16 WBC (3.8-10.6) k/uL RBC (4.30-5.90) m/uL Hgb (13.0-17.5) gm/dL Hct (39.0-53.0) % RDW (11.5-15.5) % Plt Count (150-450) k/uL Neutrophils # (Manual) (1.3-7.7) k/uL Lymphocytes # (Manual) (1.0-4.8) k/uL Monocytes # (Manual) (0-1.0) k/uL Metamyelocytes # (Man) (0) k/uL Nucleated RBCs (0-0) /100 WBC ABG pH (7.35-7.45) ABG pCO2 (35-45) mmHg ABG pO2 (83-108) mmHg ABG HCO3 (21-25) mmol/L ABG Total CO2 (19-24) mmol/L ABG O2 Saturation (94-97) % Chloride (98-107) mmol/L BUN (9-20) mg/dL Glucose (74-99) mg/dL POC Glucose (mg/dL) 133 H 137 H 114 H (75-99) mg/dL Calcium (8.4-10.2) mg/dL Total Protein (6.3-8.2) g/dL Albumin (3.5-5.0) g/dL 11/09/20 11/09/20 11/09/20 Range/Units 01:04 02:03 02:43 WBC (3.8-10.6) k/uL RBC (4.30-5.90) m/uL Hgb (13.0-17.5) gm/dL Hct (39.0-53.0) % RDW (11.5-15.5) % Plt Count (150-450) k/uL Neutrophils # (Manual) (1.3-7.7) k/uL Lymphocytes # (Manual) (1.0-4.8) k/uL Monocytes # (Manual) (0-1.0) k/uL Metamyelocytes # (Man) (0) k/uL Nucleated RBCs (0-0) /100 WBC ABG pH (7.35-7.45) ABG pCO2 47 H (35-45) mmHg ABG pO2 64 L (83-108) mmHg ABG HCO3 29 H (21-25) mmol/L ABG Total CO2 30 H (19-24) mmol/L ABG O2 Saturation 91.7 L (94-97) % Chloride (98-107) mmol/L BUN (9-20) mg/dL Glucose (74-99) mg/dL POC Glucose (mg/dL) 128 H 150 H (75-99) mg/dL Calcium (8.4-10.2) mg/dL Total Protein (6.3-8.2) g/dL Albumin (3.5-5.0) g/dL 11/09/20 11/09/20 11/09/20 Range/Units 03:10 04:03 04:05 WBC 15.4 H (3.8-10.6) k/uL RBC 2.36 L (4.30-5.90) m/uL Hgb 7.7 L (13.0-17.5) gm/dL Hct 23.4 L (39.0-53.0) % RDW 18.8 H (11.5-15.5) % Plt Count 136 L (150-450) k/uL Neutrophils # (Manual) 13.80 H (1.3-7.7) k/uL Lymphocytes # (Manual) 0.31 L (1.0-4.8) k/uL Monocytes # (Manual) 1.08 H (0-1.0) k/uL Metamyelocytes # (Man) 0.15 H (0) k/uL Nucleated RBCs (0-0) /100 WBC ABG pH (7.35-7.45) ABG pCO2 (35-45) mmHg ABG pO2 (83-108) mmHg ABG HCO3 (21-25) mmol/L ABG Total CO2 (19-24) mmol/L ABG O2 Saturation (94-97) % Chloride (98-107) mmol/L BUN (9-20) mg/dL Glucose (74-99) mg/dL POC Glucose (mg/dL) 144 H 136 H (75-99) mg/dL Calcium (8.4-10.2) mg/dL Total Protein (6.3-8.2) g/dL Albumin (3.5-5.0) g/dL 08/25/21 08/25/21 08/25/21 Range/Units 04:05 06:16 07:08 WBC (3.8-10.6) k/uL RBC (4.30-5.90) m/uL Hgb (13.0-17.5) gm/dL Hct (39.0-53.0) % RDW (11.5-15.5) % Plt Count (150-450) k/uL Neutrophils # (Manual) (1.3-7.7) k/uL Lymphocytes # (Manual) (1.0-4.8) k/uL Monocytes # (Manual) (0-1.0) k/uL Metamyelocytes # (Man) (0) k/uL Nucleated RBCs (0-0) /100 WBC ABG pH (7.35-7.45) ABG pCO2 (35-45) mmHg ABG pO2 (83-108) mmHg ABG HCO3 (21-25) mmol/L ABG Total CO2 (19-24) mmol/L ABG O2 Saturation (94-97) % Chloride 110 H (98-107) mmol/L BUN 26 H (9-20) mg/dL Glucose 127 H (74-99) mg/dL POC Glucose (mg/dL) 149 H 145 H (75-99) mg/dL Calcium 8.0 L (8.4-10.2) mg/dL Total Protein 5.0 L (6.3-8.2) g/dL Albumin 2.7 L (3.5-5.0) g/dL Microbiology - Last 24 Hours (Table) 11/06/20 08:14 Gram Stain - Final Sputum Sputum Culture - Final Citrobacter freundii Assessment and Plan Plan: 1 multivessel coronary artery disease, symptomatic, post three-vessel bypass surgery with venous graft and aortic valve replacement. The patient is postop day #5. Hemodynamically stable and with adequate cardiac output and cardiac index. He was becoming slightly hypotensive with a lower urine output and for that reason he was given dopamine renal dose by the cardiothoracic. Urine output is adequate. Nevertheless, the patient started developing runs of atrial fibrillation while on dopamine and current rhythm is back to sinus. 2 acute hypoxic respiratory failure. The blood gas also showed a component of hypercapnic respiratory failure, acute. Patient has developed bilateral pulmonary infiltrates and the sputum is growing Citrobacter and the patient was started on IV cefepime. Remains on a mechanical ventilator. Unable to wean. PEEP is at 12 and FiO2 of 70%. White cell count is elevated at 15 with a 6% bandemia. As such, his acute hypoxic respiratory failure is multifactorial. There is underlying advanced COPD and addition to pneumonia. A component of acu te lung injury was also suspected. 3 coronary artery disease with previous stenting of the RCA 4 COPD 5 history of extensive right upper lobe pneumonia 6 history of right upper lobe pulmonary nodule identified on a CAT scan of the chest with an average PET scan obesity workup postop with a higher suspicious for malignancy based on the PET scan findings 7 hypertension 8 hyperlipidemia 9 degenerative arthritis. Plan Keep the PEEP at 12 and the FiO2 of 70% Keep the patient on AVC plus nodes with either volume of 450 which has made this patient quite successful the mechanical ventilator Keep the patient sedated Continue cefepime We'll do a bronchoscopy and the bronchioloalveolar lavage Management of pressors and hemodynamics per cardiothoracic surgery. Currently on renal dose dopamine. Urine output is adequate for now. Hemodynamic parameters are also adequate with adequate cardiac output and index. CVP is low and I think the patient's hypotension low urine output was probably due to a component of sepsis. We'll check a pro-calcitonin level. Remove the chest tube. Continue insulin at 5 units an hour Enteral feeding has been initiated We'll continue to follow. Work in [facility] to extubate him yet. He is on IV Solu Medrol. . Critical care evaluation was on a more than 30 minutes. Time with Patient: Greater than 30
[2020-11-09] MEDS: IPRATROPIUM-ALBUTEROL 3 ML NEB INHALATION SCH ×4 (08:09→19:57)
[2020-11-09 08:30] LABS: Glucose,Whole Blood 149 mg/dL (75-99)
[2020-11-09] MEDS ORDERED: FUROSEMIDE 10 MG/ML 2 ML VIAL IV ONE (08:34)
--- NOTE | 2020-11-09 08:44 | P.PN ---
Subjective Progress Note Date: 11/09/20 Principal diagnosis: Severe triple vessel coronary artery disease, moderate to severe aortic valve stenosis, pulmonary hypertension and right upper lobe pulmonary nodule, suspicious for malignancy based on PET scan findings. Past medical history significant for hypertension, hyperlipidemia, right subclavian artery stenosis, coronary artery disease with previous stenting of the right coronary artery, history of right upper lobe pneumonia, COPD with preoperative FEV1 showing a predicted value of 66%, DLCO 18% of predicted value and remote history of nicotine dependence in which he quit smoking around 25 years ago. POD #5 aortic valve replacement with a 27 mm De [place] Inspiris bioprosthetic aortic valve, coronary artery bypass grafting 3 with a reverse saphenous vein graft off the aorta to the circumflex coronary artery, the left anterior descending coronary artery and the posterior descending coronary artery with bilateral lower extremity greater saphenous vein endoscopic harvesting. Clip ligation of the left atrial appendage with a 35 mm Atriclip, intraoperative transesophageal echocardiogram and graft flow measurement using the RateItAll system. Postoperative acute blood loss anemia and thrombocytopenia, expected given hemodilution and cardiopulmonary bypass. Prolonged mechanical ventilation, secondary acute hypoxic respiratory failure with ongoing hypoxemia, preoperative FEV1 66% of predicted value and DLCO 18% of predicted value. Paroxysmal atrial fibrillation, a known common occurrence after cardiac surgery, currently in normal sinus rhythm. Postoperative pneumonia with sputum culture positive for Citrobacter freundii, unexpected The patient remains laying in the intensive care unit on sedation with mechanical ventilation still having difficulty with oxygenation. Yesterday his sputum culture came back for Citrobacter and he was started on IV cefepime. Remains afebrile, white blood cell count 15.2 this morning, was 10.5 yesterday, pro-calcitonin sent. Remains on IV Solu-Medrol. Did have some bradycardia last night as well as hypotension and was initiated on low-dose dopamine. Currently in sinus rhythm, remains on oral amiodarone for brief episode of atrial fibrillation. Right internal jugular [place]/Cordis, right radial arterial line, left pleural chest tube all remaining present. Currently receiving tube feeding at its 65 mL per hour. Plan is for bronchoscopy today by Dr. Espino. Objective - Vital Signs Vital signs: Vital Signs Temp 97.7 F 11/09/20 04:00 Pulse 89 11/09/20 06:00 Resp 33 H 11/09/20 06:00 BP 111/59 11/08/20 07:30 Pulse Ox 91 L 11/09/20 06:00 Intake & Output 11/08/20 11/09/20 11/09/20 18:59 06:59 18:59 Intake Total 5961.411 1134.789 Output Total 765 900 Balance 1084.614 874.789 Weight 96.4 kg Intake: IV 330 560 CO/CI 90 240 Cefepime 2 gm In Sodium 100 Chloride 0.9% 100 ml @ 25 mls/hr IVPB Q12HR [facility] Rx #:[id number] Lactated Ringers 1,000 ml 240 220 @ 20 mls/hr IV .Q24H [facility] Rx#:[id number] Intake, IV Titration 679.614 379.789 Amount Albumin Human 5% 250 ml @ 250 0 mls/hr IVPB .[facility] Rx#:[id number] Cefepime 2 gm In Sodium 100 Chloride 0.9% 100 ml @ 25 mls/hr IVPB Q12HR [facility] Rx #:[id number] DOPamine DRIP 800 mg In 5.402 Dextrose/Water 1 250ml. bag @ 2 MCG/KG/MIN 3.495 mls/hr IV .Q24H [facility] Rx#: [id number] Insulin Regular 100 unit 83.620 47.083 In Sodium Chloride 0.9% 100 ml @ Per Protocol IV .Q0M [facility] Rx#:[id number] propofoL 1,000 mg In 245.994 327.304 Empty Bag 1 bag @ Titrate IV .Q0M [facility] Rx#: [id number] Tube Feeding 690 685 Other 150 150 Output: Chest Tube Drainage 85 30 medistinal #1 85 30 Urine 680 870 Other: Voiding Method Indwelling Catheter Indwelling Catheter ABP, PAP, CO, CI - Last Documented Arterial Blood Pressure 118/46 Pulmonary Artery Pressure 60/32 Cardiac Output 6.2 Cardiac Index 3.1 - Exam CONSTITUTIONAL: Appears comfortable on mechanical ventilation, no acute distress RESPIRATORY: Lungs sounds diminished bilaterally with coarse breath sounds in the bases. Respirations even, nonlabored. Currently on VC plus mode with FiO2 70%, PEEP 12, tidal volume 450, respiratory rate 24. 8.5 ET tube present, 23 at the lip CARDIOVASCULAR: S1, S2 present. Regular rate and rhythm, sinus rhythm on telemetry. Sternum stable. Palpable peripheral pulses bilaterally. Generalized edema present. Heart hugger, antiembolism stockings, SCDs present. GASTROINTESTINAL: Abdomen soft, nontender, nondistended. Active bowel sounds present 4 quadrants. Tolerating tube feeding at 65 mL per hour. GENITOURINARY: Espinal present draining clear, yellow urine. Output overnight 40-60 mL per hour, 1600 mL in the last 24 hours INTEGUMENTARY: Skin is warm and dry. Anterior chest incision well approximated and covered with dry intact dressing. Left lower extremity EVH site and left radial artery harvest site well approximated without redness or drainage, RHINA drains present with minimal drainage. PSYCHIATRIC: Sedated on mechanical ventilation INVASIVE LINES AND TUBES: Left pleural chest tube present and connected to wall suction, no air leaks present. A/V epicardial pacemaker wires present, grounded. Right internal jugular [place]/Cordis, right radial arterial line present. Last CO/CI 6.3/3.2, PA 59/28, CVP 6. - Allied health notes Allied health notes reviewed: nursing - Labs CBC & Chem 7: 11/09/20 04:05 11/09/20 04:05 Labs: Abnormal Lab Results - Last 24 Hours (Table) 11/08/20 11/08/20 11/08/20 Range/Units 04:30 07:59 09:32 WBC (3.8-10.6) k/uL RBC (4.30-5.90) m/uL Hgb (13.0-17.5) gm/dL Hct (39.0-53.0) % RDW (11.5-15.5) % Plt Count 104 L (150-450) k/uL Neutrophils # (Manual) 9.20 H (1.3-7.7) k/uL Lymphocytes # (Manual) 0.74 L (1.0-4.8) k/uL Monocytes # (Manual) (0-1.0) k/uL Metamyelocytes # (Man) (0) k/uL Nucleated RBCs 1 H (0-0) /100 WBC ABG pH (7.35-7.45) ABG pCO2 (35-45) mmHg ABG pO2 (83-108) mmHg ABG HCO3 (21-25) mmol/L ABG Total CO2 (19-24) mmol/L ABG O2 Saturation (94-97) % Chloride (98-107) mmol/L BUN (9-20) mg/dL Glucose (74-99) mg/dL POC Glucose (mg/dL) 169 H 154 H (75-99) mg/dL Calcium (8.4-10.2) mg/dL Total Protein (6.3-8.2) g/dL Albumin (3.5-5.0) g/dL 11/08/20 11/08/20 11/08/20 Range/Units 10:21 11:13 13:28 WBC (3.8-10.6) k/uL RBC (4.30-5.90) m/uL Hgb (13.0-17.5) gm/dL Hct (39.0-53.0) % RDW (11.5-15.5) % Plt Count (150-450) k/uL Neutrophils # (Manual) (1.3-7.7) k/uL Lymphocytes # (Manual) (1.0-4.8) k/uL Monocytes # (Manual) (0-1.0) k/uL Metamyelocytes # (Man) (0) k/uL Nucleated RBCs (0-0) /100 WBC ABG pH 7.46 H (7.35-7.45) ABG pCO2 (35-45) mmHg ABG pO2 79 L (83-108) mmHg ABG HCO3 28 H (21-25) mmol/L ABG Total CO2 30 H (19-24) mmol/L ABG O2 Saturation (94-97) % Chloride (98-107) mmol/L BUN (9-20) mg/dL Glucose (74-99) mg/dL POC Glucose (mg/dL) 153 H 132 H (75-99) mg/dL Calcium (8.4-10.2) mg/dL Total Protein (6.3-8.2) g/dL Albumin (3.5-5.0) g/dL 11/08/20 11/08/20 11/08/20 Range/Units 14:56 16:42 18:04 WBC (3.8-10.6) k/uL RBC (4.30-5.90) m/uL Hgb (13.0-17.5) gm/dL Hct (39.0-53.0) % RDW (11.5-15.5) % Plt Count (150-450) k/uL Neutrophils # (Manual) (1.3-7.7) k/uL Lymphocytes # (Manual) (1.0-4.8) k/uL Monocytes # (Manual) (0-1.0) k/uL Metamyelocytes # (Man) (0) k/uL Nucleated RBCs (0-0) /100 WBC ABG pH (7.35-7.45) ABG pCO2 (35-45) mmHg ABG pO2 (83-108) mmHg ABG HCO3 (21-25) mmol/L ABG Total CO2 (19-24) mmol/L ABG O2 Saturation (94-97) % Chloride (98-107) mmol/L BUN (9-20) mg/dL Glucose (74-99) mg/dL POC Glucose (mg/dL) 130 H 137 H 158 H (75-99) mg/dL Calcium (8.4-10.2) mg/dL Total Protein (6.3-8.2) g/dL Albumin (3.5-5.0) g/dL 11/08/20 11/08/20 11/09/20 Range/Units 20:15 22:17 00:16 WBC (3.8-10.6) k/uL RBC (4.30-5.90) m/uL Hgb (13.0-17.5) gm/dL Hct (39.0-53.0) % RDW (11.5-15.5) % Plt Count (150-450) k/uL Neutrophils # (Manual) (1.3-7.7) k/uL Lymphocytes # (Manual) (1.0-4.8) k/uL Monocytes # (Manual) (0-1.0) k/uL Metamyelocytes # (Man) (0) k/uL Nucleated RBCs (0-0) /100 WBC ABG pH (7.35-7.45) ABG pCO2 (35-45) mmHg ABG pO2 (83-108) mmHg ABG HCO3 (21-25) mmol/L ABG Total CO2 (19-24) mmol/L ABG O2 Saturation (94-97) % Chloride (98-107) mmol/L BUN (9-20) mg/dL Glucose (74-99) mg/dL POC Glucose (mg/dL) 133 H 137 H 114 H (75-99) mg/dL Calcium (8.4-10.2) mg/dL Total Protein (6.3-8.2) g/dL Albumin (3.5-5.0) g/dL 11/09/20 11/09/20 11/09/20 Range/Units 01:04 02:03 02:43 WBC (3.8-10.6) k/uL RBC (4.30-5.90) m/uL Hgb (13.0-17.5) gm/dL Hct (39.0-53.0) % RDW (11.5-15.5) % Plt Count (150-450) k/uL Neutrophils # (Manual) (1.3-7.7) k/uL Lymphocytes # (Manual) (1.0-4.8) k/uL Monocytes # (Manual) (0-1.0) k/uL Metamyelocytes # (Man) (0) k/uL Nucleated RBCs (0-0) /100 WBC ABG pH (7.35-7.45) ABG pCO2 47 H (35-45) mmHg ABG pO2 64 L (83-108) mmHg ABG HCO3 29 H (21-25) mmol/L ABG Total CO2 30 H (19-24) mmol/L ABG O2 Saturation 91.7 L (94-97) % Chloride (98-107) mmol/L BUN (9-20) mg/dL Glucose (74-99) mg/dL POC Glucose (mg/dL) 128 H 150 H (75-99) mg/dL Calcium (8.4-10.2) mg/dL Total Protein (6.3-8.2) g/dL Albumin (3.5-5.0) g/dL 11/09/20 11/09/20 11/09/20 Range/Units 03:10 04:03 04:05 WBC 15.4 H (3.8-10.6) k/uL RBC 2.36 L (4.30-5.90) m/uL Hgb 7.7 L (13.0-17.5) gm/dL Hct 23.4 L (39.0-53.0) % RDW 18.8 H (11.5-15.5) % Plt Count 136 L (150-450) k/uL Neutrophils # (Manual) 13.80 H (1.3-7.7) k/uL Lymphocytes # (Manual) 0.31 L (1.0-4.8) k/uL Monocytes # (Manual) 1.08 H (0-1.0) k/uL Metamyelocytes # (Man) 0.15 H (0) k/uL Nucleated RBCs (0-0) /100 WBC ABG pH (7.35-7.45) ABG pCO2 (35-45) mmHg ABG pO2 (83-108) mmHg ABG HCO3 (21-25) mmol/L ABG Total CO2 (19-24) mmol/L ABG O2 Saturation (94-97) % Chloride (98-107) mmol/L BUN (9-20) mg/dL Glucose (74-99) mg/dL POC Glucose (mg/dL) 144 H 136 H (75-99) mg/dL Calcium (8.4-10.2) mg/dL Total Protein (6.3-8.2) g/dL Albumin (3.5-5.0) g/dL 11/09/20 11/09/20 11/09/20 Range/Units 04:05 06:16 07:08 WBC (3.8-10.6) k/uL RBC (4.30-5.90) m/uL Hgb (13.0-17.5) gm/dL Hct (39.0-53.0) % RDW (11.5-15.5) % Plt Count (150-450) k/uL Neutrophils # (Manual) (1.3-7.7) k/uL Lymphocytes # (Manual) (1.0-4.8) k/uL Monocytes # (Manual) (0-1.0) k/uL Metamyelocytes # (Man) (0) k/uL Nucleated RBCs (0-0) /100 WBC ABG pH (7.35-7.45) ABG pCO2 (35-45) mmHg ABG pO2 (83-108) mmHg ABG HCO3 (21-25) mmol/L ABG Total CO2 (19-24) mmol/L ABG O2 Saturation (94-97) % Chloride 110 H (98-107) mmol/L BUN 26 H (9-20) mg/dL Glucose 127 H (74-99) mg/dL POC Glucose (mg/dL) 149 H 145 H (75-99) mg/dL Calcium 8.0 L (8.4-10.2) mg/dL Total Protein 5.0 L (6.3-8.2) g/dL Albumin 2.7 L (3.5-5.0) g/dL Microbiology - Last 24 Hours (Table) 11/06/20 08:14 Gram Stain - Final Sputum Sputum Culture - Final Citrobacter freundii - Imaging and Cardiology Chest x-ray: report reviewed, image reviewed Assessment and Plan Assessment: 1. Severe triple-vessel coronary artery disease, status post three-vessel coronary artery bypass grafting surgery 2. Moderate to severe aortic valve stenosis, status post aortic valve replacement with a #27 mm [place] Inspiris bioprosthetic aortic valve 3. Pulmonary hypertension 4. Known right upper lobe pulmonary nodule, suspicious for malignancy based on PET scan findings 5. COPD with a preoperative FEV1 66% of predicted value and a DLCO 18% of predicted value 6. Known right subclavian artery stenosis 7. History of Hypertension 8. Hyperlipidemia, treated 9. History of coronary artery disease with previous stenting of the right coronary artery 10. 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 Remote history of nicotine dependence, quit smoking over 25 years ago 12. Postoperative anemia and thrombocytopenia, expected given hemodilution and cardiopulmonary bypass 13. Prolonged mechanical ventilator support, secondary to acute respiratory failure with ongoing hypoxemia 14. Paroxysmal atrial fibrillation, a known common occurrence after cardiac surgery, currently in normal sinus rhythm 15. Pneumonia, sputum culture positive for Citrobacter freundii Plan: 1. Continue to optimize medical management with aspirin, statin, zetia, and beta paul. Continue amiodarone 400 mg per OG tube twice a day for atrial fib ablation prophylaxis. 2. Sputum culture showing Citrobacter freundii, continue cefepime 2 g IV piggyback every 12 hours. Urine culture final report shows no growth. 3. Wean to extubate unable, Solu-Medrol and bronchodilators management per Dr. Espino's recommendations. Anticipate bronchoscopy today by Dr. Espino 4. Once extubated encourage incentive spirometry use 10 times every hour while awake , increase activity as tolerated with PT/OT/cardiac rehab following. 5. Continue to monitor daily labs and chest x-rays. Electrolyte replacement per protocol. No transfusion today. Pro-calcitonin sent 6. Pain control with current medication regimen. 7. GI/DVT prophylaxis. HIT panel results negative for HIT. 8. Insulin management per primary care service. The patient is not diabetic with preoperative hemoglobin A1c 5.4%, needs tight blood sugar control to promote sternal union and prevent infection. 9. Keep left radial arterial line in place. 10. Continue Espinal catheter for another for strict accurate intake and output. Continue to monitor daily weights. 11. PICC line ordered, patient is postop day 5, need to remove invasive lines, patient needs double-lumen PICC as he is on pressors and IV antibiotics and IV steroids, with incompatibility 12. Left pleural chest tube discontinued without incident 13. Continue atrial and ventricular pacemaker wires with pacemaker generator to a VVI backup of 50 BPM. 14. Echocardiogram ordered to evaluate left ventricular function 15. Continue tube feedings 16. More recommendations to follow based on patient's clinical course. Time with Patient: Greater than 30
[2020-11-09] MEDS: CHLORHEXIDINE GLUCONATE 15 ML CUP MUCOUS MEM SCH ×2 (09:12→20:19)
[2020-11-09] MEDS: HEPARIN SODIUM,PORCINE/PF 5,000 UNIT/0.5 ML SYRINGE SQ SCH ×2 (09:12→16:38)
[2020-11-09] MEDS: PANTOPRAZOLE 40 MG/10 ML VIAL IVP SCH (09:12)
[2020-11-09] MEDS: AMIODARONE 200 MG TAB OG-TUBE SCH ×2 (09:13→20:19)
[2020-11-09] MEDS: ASCORBIC ACID 500 MG TAB PO SCH (09:13)
[2020-11-09] MEDS: METOPROLOL TARTRATE 25 MG TAB PO SCH ×2 (09:13→20:20)
[2020-11-09] MEDS: methylPREDNISolone SOD SUCCI 40 MG/ML 1 ML VIAL IV SCH ×2 (09:13→16:38)
[2020-11-09] MEDS: MULTIVITAMINS, THERA 1 EACH TAB PO SCH (09:13)
[2020-11-09] MEDS: ASPIRIN 325 MG TAB PO SCH (09:13)
[2020-11-09] MEDS: CEFEPIME 2 GM in SODIUM CHLORIDE 0.9% 100 ML IVPB SCH ×2 (09:14→20:20)
[2020-11-09] MEDS: bisacodyL 10 MG SUPP RECTAL PRN (09:49)
[2020-11-09] MEDS ORDERED: CISATRACURIUM 2 MG/ML 5 ML VIAL IV ONE (10:00)
--- NOTE | 2020-11-09 10:16 | P.PCN ---
Date of Procedure: 11/09/20 Anesthesia: AMILCARA Surgeon: Kostas Espino Janitorial Manager #1: Arely Basilio Estimated Blood Loss (ml): 0 Operative Findings: Date of Procedure: 11/09/20 Operative Findings: Preoperative Diagnosis: Bilateral pneumonia, Acute hypoxic respiratory failure Postoperative Diagnosis: Bilateral pneumonia, Acute hypoxic respiratory failure Procedure(s) Performed: Flex bronchoscopy, bronchial alveolar lavage of the anterior segment of the RLL Anesthesia: MAC Surgeon: Kostas Espino Estimated Blood Loss (ml): 0 Pathology: other Condition: critical Disposition: ICU Operative Findings: This is a procedure that was done in the intensive care unit. The patient has developed hypoxic respiratory failure and the patient Had to be intubated and placed on a mechanical ventilator post cardiac surgery. Patient developed diffuse bilateral pulmonary infiltrates. Procedure was done in the intensive care unit. The patient was remained on mechanical ventilator with an FiO2 of 100%. The patient was sedated with propofol. He received 10 mg IV nimbex The flexible bronchoscope was inserted fluid orotracheal tube. The procedure w as not was the patient was oxygenated and mechanically ventilated. The flexible bronchoscope was introduced and the distal trachea was visualized and was within normal limits. Examination of the trachealbronchial tree was done. The visualized airways included enter trachea, obi, bilateral mainstem bronchi, right upper lobe bronchus, bronchus intermedius, right middle lobe bronchus and right lower lobe bronchus, left upper lobe bronchus, left lower lobe bronchitis in the lingular segment. All of airways were patent and within normal limits. Bronchial mucosa was also within normal limits. There was some loose secretions in the lower lobes bilateral (right more than left). The bronchoscope was wedged into the anterior segment of the RLL. The bronchioloalveolar lavage was done with a total of 60 mL of fluid was infused and around 25 mL was aspirated back and asked that was nonbloody. Therapeutic airway suctioning was done. The residual airway secretions were suctioned out and the patient tolerated the procedure well without any significant desaturation. Bronchoscope was removed and the patient was kept on ventilator . The samples will be sent for microbial cultures and analysis.
[2020-11-09 10:17] LABS: Glucose,Whole Blood 133 mg/dL (75-99)
[2020-11-09] MEDS ORDERED: LIDOCAINE 1% INJ 10MG/ML (20 ML MDV) SQ ONE (10:37)
--- NOTE | 2020-11-09 11:13 | ECHOF ---
Referral Reason:eval LV MEASUREMENTS -------- HEIGHT: 162.6 cm WEIGHT: 96.2 kg BP: AV maxP.63 mmHg AV meanP.19 mmHg FINDINGS -------- Limited Study Pt is S/P Cabg x3 & Aortic Valve replacement. Overall left ventricular systolic function is low-normal with, an EF between 50 - 55 %. Difficult study, poor visualization of AV, grossly no significant gradient. Normal systolic Fx CONCLUSIONS -------- 1. Limited Study Pt is S/P Cabg x3 & Aortic Valve replacement. 2. Overall left ventricular systolic function is low-normal with, an EF between 50 - 55 %. 3. Difficult study, poor visualization of AV, grossly no significant gradient. Normal systolic Fx HULL AND DECK REMOVER: Renita Childers RDCS
--- NOTE | 2020-11-09 11:19 | XR ---
EXAMINATION TYPE: XR chest 1V portable DATE OF EXAM: 11/09/2020 COMPARISON: 11/09/2020 HISTORY: SOB, Follow Up FINDINGS: Indwelling tubes and catheters are unchanged. Left-sided PICC line with its distal tip overlying the SVC is appropriately position. No change in bibasilar opacities. Stable appearance of the cardio-mediastinal structures at this time. Pleural effusion unchanged. IMPRESSION: 1. Stable portable chest. Clinical correlation and follow up until resolution is recommended.
[2020-11-09 11:36] LABS: Glucose,Whole Blood 118 mg/dL (75-99)
--- NOTE | 2020-11-09 12:04 | P.PN ---
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 He follows in the office with Dr. Bowling. We are on consult for post operative management. 11/04/20 Patient underwent aortic valve replacement and coronary artery bypass grafting 3 with a reverse saphenous vein graft off the aorta to the circumflex coronary artery, the left anterior descending coronary artery and the posterior descending coronary artery with bilateral lower extremity greater saphenous vein endoscopic harvesting. Clip ligation of the left atrial appendage. Patient course has been complicated by poor oxygenation, ongoing hypoxemia and prolonged mechanical ventilation, and paroxysmal atrial fibrillatoin. 11/07/20 Patient seen and examined at bedside, in the intensive care unit. In no acute distress. He is remain sedated on propofol drip at 30 mcg/kg/m, remains intubated. Last evening around 8 PM the patient went into atrial fibrillation and was started on the amiodarone protocol, currently the amiodarone is infusing at 0.5 mg/m. Bedside telemetry showing normal sinus rhythm heart rate in 70s. He remains intubated with current mechanical ventilator settings assist control 24, TV 450, FiO2 60% and a PEEP of 12. He is hemodynamically stable. CVP 10. Not on any pressor/inotrope support. Continues to have chest tubes and Right IJ Cordis with swan-magdaleno catheter present. Patient is currently maintained on aspirin 325 mg daily, atorvastatin 80 mg nightly, Zetia at 10 mg nightly, metoprolol tartrate 25 mg twice a day, amiodarone 0.5mg/min, IV Lasix 40mg once today. Laboratory data reviewed, WBC 12.7, hemoglobin 10.9, platelets 82, sodium 139, potassium 4.0, BUN 12, serum creatinine 0.7. Patient's beta paul was increased today. Patient started on PO amiodarone 400mg BID 11/09/2020: Patient seen and examined at bedside, in the intensive care unit. Overnight patient became hypotensive SBP 60s, patient also had some bradycardia patient started on a low dose dopamine drip. He is currently intubated on mechanical ventilation. Mechanical ventilator settings assist control 24, TV 450, FiO2 80% and a PEEP of 12. His chest xray this morning revealed bibasilar opacities appears worsening from yesterday. Limited Echocardiogram revealed, EF 50-55%, poor visualization of the aortic valve. He is currently on propofol 55mcg/kg/min, aspirin 325 mg daily, atorvastatin 80 mg nightly, Zetia at 10 mg nightly, metoprolol tartrate 25 mg twice a day, amiodarone 400mg BID. Laboratory revealed sputum culture revealed Citrobacter freundii, WBC 15.4, hemoglobin 7.7, platelets 136, sodium 141, potassium 4.2, BUN 26, serum creatinine 0.7. GENERAL: No acute distress intubated and sedated on propofol. NECK: Supple without JVD or thyromegaly. Right IJ Cordis and [place]-Magdaleno catheter in place LUNGS: Intubated. Breath sounds clear to auscultation bilaterally. Respiration equal and unlabored. No wheezes, rales or rhonchi. HEART: Regular rate and rhythm without murmurs, rubs or gallops. S1 and S2 heard. Chest tube present. Atrial and ventricular epicardial pacemaker wires present EXTREMITIES: Normal range of motion, no edema. No clubbing or cyanosis. Peripheral pulses intact. Left radial arterial line placed ASSESSMENT Severe triple-vessel coronary artery disease, status post 3 vessel CABG 11/04/20 Moderate to severe aortic valve stenosis, status post aortic valve replacement 11/04/20 Prolonged mechanism ventilation post operatively Acute hypoxic respiratory failure Known right upper lobe pulmonary nodule, suspicious for malignancy based on PET scan findings COPD History of hypertension Hyperlipidemia History of CAD with previous stenting RCA New onset Paroxysmal atrial fibrillation, currently in normal sinus rhythm Anemia PLAN Will given IV Lasix 20mg x 1 Plan for bronchoscopy and bronchial lavage today with pulmonary Continue medical management with aspirin, statin, zetia Continue PO amiodarone Pulmonary following, wean to extubate with ventilator management per pulmonary Post operative management per CT surgery Further recommendations based on clinical course Nurse Practitioner note has been reviewed, I agree with a documented findings and plan of care. Patient was seen and examined. Objective - Vital Signs Vital signs: Vital Signs Temp 98.2 F 11/09/20 08:00 Pulse 76 11/09/20 10:00 Resp 16 11/09/20 10:00 BP 111/59 11/09/20 10:00 Pulse Ox 89 L 11/09/20 10:00 Intake & Output 11/08/20 11/09/20 11/09/20 18:59 06:59 18:59 Intake Total 9312.744 8836.789 469.818 Output Total 765 950 190 Balance 1084.614 959.789 279.818 Weight 96.4 kg Intake: IV 330 610 100 CO/CI 90 270 20 Cefepime 2 gm In Sodium 100 Chloride 0.9% 100 ml @ 25 mls/hr IVPB Q12HR [facility] Rx #:[id number] Lactated Ringers 1,000 ml 240 240 80 @ 20 mls/hr IV .Q24H [facility] Rx#:[id number] Intake, IV Titration 679.614 379.789 109.818 Amount Albumin Human 5% 250 ml @ 250 0 mls/hr IVPB [facility] Rx#:[id number] Cefepime 2 gm In Sodium 100 Chloride 0.9% 100 ml @ 25 mls/hr IVPB Q12HR [facility] Rx #:[id number] DOPamine DRIP 800 mg In 5.402 9.818 Dextrose/Water 1 250ml. bag @ 2 MCG/KG/MIN 3.495 mls/hr IV .Q24H [facility] Rx#: [id number] Insulin Regular 100 unit 83.620 47.083 In Sodium Chloride 0.9% 100 ml @ Per Protocol IV .Q0M [facility] Rx#:[id number] propofoL 1,000 mg In 245.994 327.304 100.000 Empty Bag 1 bag @ Titrate IV .Q0M [facility] Rx#: [id number] Tube Feeding 690 750 260 Other 150 170 Output: Chest Tube Drainage 85 30 medistinal #1 85 30 Urine 680 920 190 Other: Voiding Method Indwelling Catheter Indwelling Catheter Indwelling Catheter ABP, PAP, CO, CI - Last Documented Arterial Blood Pressure 123/37 Pulmonary Artery Pressure 64/26 Cardiac Output 5.2 Cardiac Index 2.6 - Labs CBC & Chem 7: 11/09/20 04:05 11/09/20 04:05 Labs: Abnormal Lab Results - Last 24 Hours (Table) 11/08/20 11/08/20 11/08/20 Range/Units 13:28 14:56 16:42 WBC (3.8-10.6) k/uL RBC (4.30-5.90) m/uL Hgb (13.0-17.5) gm/dL Hct (39.0-53.0) % RDW (11.5-15.5) % Plt Count (150-450) k/uL Neutrophils # (Manual) (1.3-7.7) k/uL Lymphocytes # (Manual) (1.0-4.8) k/uL Monocytes # (Manual) (0-1.0) k/uL Metamyelocytes # (Man) (0) k/uL ABG pCO2 (35-45) mmHg ABG pO2 (83-108) mmHg ABG HCO3 (21-25) mmol/L ABG Total CO2 (19-24) mmol/L ABG O2 Saturation (94-97) % Chloride (98-107) mmol/L BUN (9-20) mg/dL Glucose (74-99) mg/dL POC Glucose (mg/dL) 132 H 130 H 137 H (75-99) mg/dL Calcium (8.4-10.2) mg/dL Total Protein (6.3-8.2) g/dL Albumin (3.5-5.0) g/dL 11/08/20 11/08/20 11/08/20 Range/Units 18:04 20:15 22:17 WBC (3.8-10.6) k/uL RBC (4.30-5.90) m/uL Hgb (13.0-17.5) gm/dL Hct (39.0-53.0) % RDW (11.5-15.5) % Plt Count (150-450) k/uL Neutrophils # (Manual) (1.3-7.7) k/uL Lymphocytes # (Manual) (1.0-4.8) k/uL Monocytes # (Manual) (0-1.0) k/uL Metamyelocytes # (Man) (0) k/uL ABG pCO2 (35-45) mmHg ABG pO2 (83-108) mmHg ABG HCO3 (21-25) mmol/L ABG Total CO2 (19-24) mmol/L ABG O2 Saturation (94-97) % Chloride (98-107) mmol/L BUN (9-20) mg/dL Glucose (74-99) mg/dL POC Glucose (mg/dL) 158 H 133 H 137 H (75-99) mg/dL Calcium (8.4-10.2) mg/dL Total Protein (6.3-8.2) g/dL Albumin (3.5-5.0) g/dL 11/09/20 11/09/20 11/09/20 Range/Units 00:16 01:04 02:03 WBC (3.8-10.6) k/uL RBC (4.30-5.90) m/uL Hgb (13.0-17.5) gm/dL Hct (39.0-53.0) % RDW (11.5-15.5) % Plt Count (150-450) k/uL Neutrophils # (Manual) (1.3-7.7) k/uL Lymphocytes # (Manual) (1.0-4.8) k/uL Monocytes # (Manual) (0-1.0) k/uL Metamyelocytes # (Man) (0) k/uL ABG pCO2 (35-45) mmHg ABG pO2 (83-108) mmHg ABG HCO3 (21-25) mmol/L ABG Total CO2 (19-24) mmol/L ABG O2 Saturation (94-97) % Chloride (98-107) mmol/L BUN (9-20) mg/dL Glucose (74-99) mg/dL POC Glucose (mg/dL) 114 H 128 H 150 H (75-99) mg/dL Calcium (8.4-10.2) mg/dL Total Protein (6.3-8.2) g/dL Albumin (3.5-5.0) g/dL 11/09/20 11/09/20 11/09/20 Range/Units 02:43 03:10 04:03 WBC (3.8-10.6) k/uL RBC (4.30-5.90) m/uL Hgb (13.0-17.5) gm/dL Hct (39.0-53.0) % RDW (11.5-15.5) % Plt Count (150-450) k/uL Neutrophils # (Manual) (1.3-7.7) k/uL Lymphocytes # (Manual) (1.0-4.8) k/uL Monocytes # (Manual) (0-1.0) k/uL Metamyelocytes # (Man) (0) k/uL ABG pCO2 47 H (35-45) mmHg ABG pO2 64 L (83-108) mmHg ABG HCO3 29 H (21-25) mmol/L ABG Total CO2 30 H (19-24) mmol/L ABG O2 Saturation 91.7 L (94-97) % Chloride (98-107) mmol/L BUN (9-20) mg/dL Glucose (74-99) mg/dL POC Glucose (mg/dL) 144 H 136 H (75-99) mg/dL Calcium (8.4-10.2) mg/dL Total Protein (6.3-8.2) g/dL Albumin (3.5-5.0) g/dL 11/09/20 11/09/20 11/09/20 Range/Units 04:05 04:05 06:16 WBC 15.4 H (3.8-10.6) k/uL RBC 2.36 L (4.30-5.90) m/uL Hgb 7.7 L (13.0-17.5) gm/dL Hct 23.4 L (39.0-53.0) % RDW 18.8 H (11.5-15.5) % Plt Count 136 L (150-450) k/uL Neutrophils # (Manual) 13.80 H (1.3-7.7) k/uL Lymphocytes # (Manual) 0.31 L (1.0-4.8) k/uL Monocytes # (Manual) 1.08 H (0-1.0) k/uL Metamyelocytes # (Man) 0.15 H (0) k/uL ABG pCO2 (35-45) mmHg ABG pO2 (83-108) mmHg ABG HCO3 (21-25) mmol/L ABG Total CO2 (19-24) mmol/L ABG O2 Saturation (94-97) % Chloride 110 H (98-107) mmol/L BUN 26 H (9-20) mg/dL Glucose 127 H (74-99) mg/dL POC Glucose (mg/dL) 149 H (75-99) mg/dL Calcium 8.0 L (8.4-10.2) mg/dL Total Protein 5.0 L (6.3-8.2) g/dL Albumin 2.7 L (3.5-5.0) g/dL 11/09/20 11/09/20 11/09/20 Range/Units 07:08 08:11 10:15 WBC (3.8-10.6) k/uL RBC (4.30-5.90) m/uL Hgb (13.0-17.5) gm/dL Hct (39.0-53.0) % RDW (11.5-15.5) % Plt Count (150-450) k/uL Neutrophils # (Manual) (1.3-7.7) k/uL Lymphocytes # (Manual) (1.0-4.8) k/uL Monocytes # (Manual) (0-1.0) k/uL Metamyelocytes # (Man) (0) k/uL ABG pCO2 (35-45) mmHg ABG pO2 (83-108) mmHg ABG HCO3 (21-25) mmol/L ABG Total CO2 (19-24) mmol/L ABG O2 Saturation (94-97) % Chloride (98-107) mmol/L BUN (9-20) mg/dL Glucose (74-99) mg/dL POC Glucose (mg/dL) 145 H 149 H 133 H (75-99) mg/dL Calcium (8.4-10.2) mg/dL Total Protein (6.3-8.2) g/dL Albumin (3.5-5.0) g/dL 11/09/20 Range/Units 11:35 WBC (3.8-10.6) k/uL RBC (4.30-5.90) m/uL Hgb (13.0-17.5) gm/dL Hct (39.0-53.0) % RDW (11.5-15.5) % Plt Count (150-450) k/uL Neutrophils # (Manual) (1.3-7.7) k/uL Lymphocytes # (Manual) (1.0-4.8) k/uL Monocytes # (Manual) (0-1.0) k/uL Metamyelocytes # (Man) (0) k/uL ABG pCO2 (35-45) mmHg ABG pO2 (83-108) mmHg ABG HCO3 (21-25) mmol/L ABG Total CO2 (19-24) mmol/L ABG O2 Saturation (94-97) % Chloride (98-107) mmol/L BUN (9-20) mg/dL Glucose (74-99) mg/dL POC Glucose (mg/dL) 118 H (75-99) mg/dL Calcium (8.4-10.2) mg/dL Total Protein (6.3-8.2) g/dL Albumin (3.5-5.0) g/dL Microbiology - Last 24 Hours (Table) 11/06/20 08:14 Gram Stain - Final Sputum Sputum Culture - Final Citrobacter freundii
--- NOTE | 2020-11-09 13:37 | IR ---
EXAMINATION TYPE: IR cvc insert >=5 years DATE OF EXAM: 11/09/2020 COMPARISON: NONE HISTORY: Needs long-term intravenous access for therapy, pneumonia FINDINGS: Maximal barrier technique was utilized. Hand hygiene obtained with soap and water and alco hol-based hand rub. The skin overlying the left basilic vein was localized with ultrasound and noted to be compressible and patent by ultrasound. An ultrasound image [facility] Sterile technique utilized with the ultrasound machine. The skin overlying was prepped an d draped and Lidocaine used for local anesthesia. A skin moose was made with a scalpel. Access was g ained to the vein under direct ultrasound guidance with a 21-gauge needle and a 0.018 inch wire was a dvanced. Access site was dilated with a peel-away sheath and the catheter tailored to length. Anayeli ter advanced centrally and a post procedure chest x-ray verified placement with tip at the superior v charly cava. Catheter was fixed to the skin and a sterile dressing placed. Hemostasis achieved and the catheter was aspirated and flushed with sterile saline. The patient remained in stable condition. IMPRESSION: STATUS POST ULTRASOUND GUIDED PICC LINE PLACEMENT, READY FOR USE. THIS PROCEDURE WAS PER FORMED BY THE UNDERSIGNED.
[2020-11-09] MEDS: INSULIN REGULAR 100 UNIT in SODIUM CHLORIDE 0.9% 100 ML IV SCH (13:58)
[2020-11-09 14:18] LABS: Appearance,BF Hazy; Color,BF Red; Nucleated Cells, Body Fluid 1650 /uL; RBC, Body Fluid 1800 /uL
[2020-11-09 14:18] LABS: Glucose,Whole Blood 129 mg/dL (75-99)
[2020-11-09 14:21] LABS: Mononuclear WBC,Body Fluid 32 %; Polynuclear WBC,Body Fluid 68 %; Total Cells Counted,Body Fluid 100
[2020-11-09 15:03] LABS: Hemoglobin A1C 5.3 % (4.0-6.0)
[2020-11-09 16:25] LABS: ABG Base Excess 3.6 mmol/L; ABG HCO3 28 mmol/L (21-25); ABG Oxygen Saturation 98.9 % (94-97); ABG PCO2 43 mmHg (35-45); ABG PH 7.42 (7.35-7.45); ABG PO2 111 mmHg (83-108); ABG TCO2 29 mmol/L (19-24); Allen Test Performed? Yes
[2020-11-09 16:35] LABS: Glucose,Whole Blood 134 mg/dL (75-99)
[2020-11-09 17:56] LABS: Glucose,Whole Blood 139 mg/dL (75-99)
[2020-11-09] MEDS: ATORVASTATIN 80 MG TAB PO SCH (20:20)
[2020-11-09] MEDS: SENNOSIDES-DOCUSATE SODIUM 1 EACH TAB PO SCH (20:20)
[2020-11-09] MEDS: LACTATED RINGERS 1,000 ML IV SCH (20:21)
[2020-11-09] MEDS: EZETIMIBE 10 MG TAB PO SCH (20:24)
[2020-11-09 20:51] LABS: Glucose,Whole Blood 139 mg/dL (75-99)
[2020-11-09] MEDS: fentaNYL (PF). 1,000 MCG in SODIUM CHLORIDE 0.9% 80 ML IV SCH (21:05)
[2020-11-09] MEDS: NOREPINEPHRINE 4 MG in SODIUM CHLORIDE 0.9% 250 ML IV SCH (22:37)
--- NOTE | 2020-11-09 23:38 | P.PN ---
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 Currently he remains in the ICU intubated and sedated. He is on aspirin 325 mg. Also he has evidence of pneumonia secondary to Citrobacter covered with cefepime, he had low-grade fever 2-3 days ago at 100.8, been afebrile for the last 24 hours. Also he is on Solu-Medrol 40 mg for his COPD exacerbation. He is also on insulin drip Several consultants on the case He is tachypneic but blood pressure is a stable Labs reviewed and they looked unremarkable He is kept on aspirin 325 mg daily 11/09/2020 Patient is status post CABG and aortic valve replacement on 11/04. He is still on mechanical ventilation. He failed weaning trial, he underwent bronchoscopy today which showed basically patent airways with only some distal secretions were sucked out. He is still tachypneic around 26-34 Calcitonin still elevated 0.1, he has leukocytosis of 15 gait. No more fever, last fever was on 11/06 around 100. He still He remains on cefepime 2 g twice a day, Solu-Medrol 40 mg. He still on insulin drip while he is on steroids He is on aspirin 325 mg Objective - Vital Signs Vital signs: Vital Signs Temp 98.2 F 11/09/20 08:00 Pulse 76 11/09/20 10:00 Resp 16 11/09/20 10:00 BP 111/59 11/09/20 10:00 Pulse Ox 89 L 11/09/20 10:00 Intake & Output 11/08/20 11/09/20 11/09/20 18:59 06:59 18:59 Intake Total 6171.495 8829.789 469.818 Output Total 765 950 190 Balance 1084.614 959.789 279.818 Weight 96.4 kg Intake: IV 330 610 100 CO/CI 90 270 20 Cefepime 2 gm In Sodium 100 Chloride 0.9% 100 ml @ 25 mls/hr IVPB Q12HR [facility] Rx #:[id number] Lactated Ringers 1,000 ml 240 240 80 @ 20 mls/hr IV .Q24H [facility] Rx#:[id number] Intake, IV Titration 679.614 379.789 109.818 Amount Albumin Human 5% 250 ml @ 250 0 mls/hr IVPB [facility] Rx#:[id number] Cefepime 2 gm In Sodium 100 Chloride 0.9% 100 ml @ 25 mls/hr IVPB Q12HR [facility] Rx #:[id number] DOPamine DRIP 800 mg In 5.402 9.818 Dextrose/Water 1 250ml. bag @ 2 MCG/KG/MIN 3.495 mls/hr IV .Q24H [facility] Rx#: [id number] Insulin Regular 100 unit 83.620 47.083 In Sodium Chloride 0.9% 100 ml @ Per Protocol IV .Q0M [facility] Rx#:[id number] propofoL 1,000 mg In 245.994 327.304 100.000 Empty Bag 1 bag @ Titrate IV .Q0M [facility] Rx#: [id number] Tube Feeding 690 750 260 Other 150 170 Output: Chest Tube Drainage 85 30 medistinal #1 85 30 Urine 680 920 190 Other: Voiding Method Indwelling Catheter Indwelling Catheter Indwelling Catheter ABP, PAP, CO, CI - Last Documented Arterial Blood Pressure 123/37 Pulmonary Artery Pressure 64/26 Cardiac Output 5.2 Cardiac Index 2.6 - Exam -GENERAL: The patient is sedated and intubated HEENT: Pupils are round and equally reacting to light. EOMI. No scleral icterus. No conjunctival pallor. Normocephalic, atraumatic. No pharyngeal erythema. No thyromegaly. CARDIOVASCULAR: S1 and S2 present. No murmurs, rubs, or gallops. PULMONARY: Chest is clear to auscultation, no wheezing or crackles. ABDOMEN: Soft, nontender, nondistended, normoactive bowel sounds. No palpable organomegaly. MUSCULOSKELETAL: No joint swelling or deformity. EXTREMITIES: No cyanosis, clubbing, or pedal edema. NEUROLOGICAL: Gross neurological examination did not reveal any focal deficits. SKIN: No rashes. no petechiae. - Labs CBC & Chem 7: 11/09/20 04:05 11/09/20 04:05 Labs: Abnormal Lab Results - Last 24 Hours (Table) 11/08/20 11/08/20 11/08/20 Range/Units 13:28 14:56 16:42 WBC (3.8-10.6) k/uL RBC (4.30-5.90) m/uL Hgb (13.0-17.5) gm/dL Hct (39.0-53.0) % RDW (11.5-15.5) % Plt Count (150-450) k/uL Neutrophils # (Manual) (1.3-7.7) k/uL Lymphocytes # (Manual) (1.0-4.8) k/uL Monocytes # (Manual) (0-1.0) k/uL Metamyelocytes # (Man) (0) k/uL ABG pCO2 (35-45) mmHg ABG pO2 (83-108) mmHg ABG HCO3 (21-25) mmol/L ABG Total CO2 (19-24) mmol/L ABG O2 Saturation (94-97) % Chloride (98-107) mmol/L BUN (9-20) mg/dL Glucose (74-99) mg/dL POC Glucose (mg/dL) 132 H 130 H 137 H (75-99) mg/dL Calcium (8.4-10.2) mg/dL Total Protein (6.3-8.2) g/dL Albumin (3.5-5.0) g/dL 11/08/20 11/08/20 11/08/20 Range/Units 18:04 20:15 22:17 WBC (3.8-10.6) k/uL RBC (4.30-5.90) m/uL Hgb (13.0-17.5) gm/dL Hct (39.0-53.0) % RDW (11.5-15.5) % Plt Count (150-450) k/uL Neutrophils # (Manual) (1.3-7.7) k/uL Lymphocytes # (Manual) (1.0-4.8) k/uL Monocytes # (Manual) (0-1.0) k/uL Metamyelocytes # (Man) (0) k/uL ABG pCO2 (35-45) mmHg ABG pO2 (83-108) mmHg ABG HCO3 (21-25) mmol/L ABG Total CO2 (19-24) mmol/L ABG O2 Saturation (94-97) % Chloride (98-107) mmol/L BUN (9-20) mg/dL Glucose (74-99) mg/dL POC Glucose (mg/dL) 158 H 133 H 137 H (75-99) mg/dL Calcium (8.4-10.2) mg/dL Total Protein (6.3-8.2) g/dL Albumin (3.5-5.0) g/dL 11/09/20 11/09/20 11/09/20 Range/Units 00:16 01:04 02:03 WBC (3.8-10.6) k/uL RBC (4.30-5.90) m/uL Hgb (13.0-17.5) gm/dL Hct (39.0-53.0) % RDW (11.5-15.5) % Plt Count (150-450) k/uL Neutrophils # (Manual) (1.3-7.7) k/uL Lymphocytes # (Manual) (1.0-4.8) k/uL Monocytes # (Manual) (0-1.0) k/uL Metamyelocytes # (Man) (0) k/uL ABG pCO2 (35-45) mmHg ABG pO2 (83-108) mmHg ABG HCO3 (21-25) mmol/L ABG Total CO2 (19-24) mmol/L ABG O2 Saturation (94-97) % Chloride (98-107) mmol/L BUN (9-20) mg/dL Glucose (74-99) mg/dL POC Glucose (mg/dL) 114 H 128 H 150 H (75-99) mg/dL Calcium (8.4-10.2) mg/dL Total Protein (6.3-8.2) g/dL Albumin (3.5-5.0) g/dL 11/09/20 11/09/20 11/09/20 Range/Units 02:43 03:10 04:03 WBC (3.8-10.6) k/uL RBC (4.30-5.90) m/uL Hgb (13.0-17.5) gm/dL Hct (39.0-53.0) % RDW (11.5-15.5) % Plt Count (150-450) k/uL Neutrophils # (Manual) (1.3-7.7) k/uL Lymphocytes # (Manual) (1.0-4.8) k/uL Monocytes # (Manual) (0-1.0) k/uL Metamyelocytes # (Man) (0) k/uL ABG pCO2 47 H (35-45) mmHg ABG pO2 64 L (83-108) mmHg ABG HCO3 29 H (21-25) mmol/L ABG Total CO2 30 H (19-24) mmol/L ABG O2 Saturation 91.7 L (94-97) % Chloride (98-107) mmol/L BUN (9-20) mg/dL Glucose (74-99) mg/dL POC Glucose (mg/dL) 144 H 136 H (75-99) mg/dL Calcium (8.4-10.2) mg/dL Total Protein (6.3-8.2) g/dL Albumin (3.5-5.0) g/dL 11/09/20 11/09/20 11/09/20 Range/Units 04:05 04:05 06:16 WBC 15.4 H (3.8-10.6) k/uL RBC 2.36 L (4.30-5.90) m/uL Hgb 7.7 L (13.0-17.5) gm/dL Hct 23.4 L (39.0-53.0) % RDW 18.8 H (11.5-15.5) % Plt Count 136 L (150-450) k/uL Neutrophils # (Manual) 13.80 H (1.3-7.7) k/uL Lymphocytes # (Manual) 0.31 L (1.0-4.8) k/uL Monocytes # (Manual) 1.08 H (0-1.0) k/uL Metamyelocytes # (Man) 0.15 H (0) k/uL ABG pCO2 (35-45) mmHg ABG pO2 (83-108) mmHg ABG HCO3 (21-25) mmol/L ABG Total CO2 (19-24) mmol/L ABG O2 Saturation (94-97) % Chloride 110 H (98-107) mmol/L BUN 26 H (9-20) mg/dL Glucose 127 H (74-99) mg/dL POC Glucose (mg/dL) 149 H (75-99) mg/dL Calcium 8.0 L (8.4-10.2) mg/dL Total Protein 5.0 L (6.3-8.2) g/dL Albumin 2.7 L (3.5-5.0) g/dL 11/09/20 11/09/20 11/09/20 Range/Units 07:08 08:11 10:15 WBC (3.8-10.6) k/uL RBC (4.30-5.90) m/uL Hgb (13.0-17.5) gm/dL Hct (39.0-53.0) % RDW (11.5-15.5) % Plt Count (150-450) k/uL Neutrophils # (Manual) (1.3-7.7) k/uL Lymphocytes # (Manual) (1.0-4.8) k/uL Monocytes # (Manual) (0-1.0) k/uL Metamyelocytes # (Man) (0) k/uL ABG pCO2 (35-45) mmHg ABG pO2 (83-108) mmHg ABG HCO3 (21-25) mmol/L ABG Total CO2 (19-24) mmol/L ABG O2 Saturation (94-97) % Chloride (98-107) mmol/L BUN (9-20) mg/dL Glucose (74-99) mg/dL POC Glucose (mg/dL) 145 H 149 H 133 H (75-99) mg/dL Calcium (8.4-10.2) mg/dL Total Protein (6.3-8.2) g/dL Albumin (3.5-5.0) g/dL Microbiology - Last 24 Hours (Table) 11/06/20 08:14 Gram Stain - Final Sputum Sputum Culture - Final Citrobacter freundii Assessment and Plan Assessment: Severe triple coronary artery disease and aortic stenosis, status post CABG and aortic valve replacement on 11/04 Acute COPD exacerbation Pneumonia secondary to Citrobacter. Status post post-bronchoscopy and bronchoalveolar lavage on 11/09 Right upper lung nodule highly suspicious for malignancy per PET scan Possible diabetes mellitus Plan: This is a pleasant 75 years old male status post CABG and aortic valve replacement. Also with pneumonia and COPD Continue with cefepime and Solu-Medrol Pulmonary/critical care team will help with vent management Cardiothoracic surgery primary team on the case Furniture Manager team on the case Continue with aspirin Continue with insulin and monitor her glucose Labs and medication were reviewed.. Continue same treatment. Continue with symptomatic treatment. Resume home medication. Monitor lytes and vitals. DVT and GI prophylaxis. Further recommendationsas per clinical course of the patient DVT prophylaxis: Subcutaneous heparin GI Prophylaxis: Ppi Prognosis is guarded Thank you for consulting us
[2020-11-10] MEDS: HEPARIN SODIUM,PORCINE/PF 5,000 UNIT/0.5 ML SYRINGE SQ SCH ×4 (00:05→23:03)
[2020-11-10] MEDS: methylPREDNISolone SOD SUCCI 40 MG/ML 1 ML VIAL IV SCH ×4 (00:05→23:02)
[2020-11-10 00:20] LABS: Glucose,Whole Blood 128 mg/dL (75-99)
[2020-11-10] MEDS: fentaNYL (PF). 1,000 MCG in SODIUM CHLORIDE 0.9% 80 ML IV SCH ×6 (01:09→22:03)
[2020-11-10] MEDS: DOPamine DRIP 800 MG in DEXTROSE/WATER 1 250ML.BAG IV SCH (02:14)
[2020-11-10 02:16] LABS: Glucose,Whole Blood 111 mg/dL (75-99)
[2020-11-10 03:26] LABS: Glucose,Whole Blood 138 mg/dL (75-99)
[2020-11-10 05:11] LABS: ABG Base Excess 3.5 mmol/L; ABG HCO3 29 mmol/L (21-25); ABG Oxygen Saturation 93.7 % (94-97); ABG PCO2 53 mmHg (35-45); ABG PH 7.35 (7.35-7.45); ABG PO2 72 mmHg (83-108); ABG TCO2 31 mmol/L (19-24)
[2020-11-10 05:12] LABS: Allen Test Performed? no
[2020-11-10 05:15] LABS: ALT 15 U/L (4-49); AST 29 U/L (17-59); African American GFR (CKD) >90 (>60 ml/min/1.73 sqM); Albumin 2.7 g/dL (3.5-5.0); Alkaline Phosphatase 54 U/L (38-126); Anion Gap 4 mmol/L; Blood Urea Nitrogen 36 mg/dL (9-20); Calcium 8.2 mg/dL (8.4-10.2); Carbon Dioxide 28 mmol/L (22-30); Chloride 111 mmol/L (98-107); Glucose 138 mg/dL (74-99); Magnesium 2.5 mg/dL (1.6-2.3); Non-African American GFR(CKD) 87 (>60 ml/min/1.73 sqM); Potassium 4.7 mmol/L (3.5-5.1); Sodium 143 mmol/L (137-145); Total Bilirubin 0.9 mg/dL (0.2-1.3); Total Protein 5.1 g/dL (6.3-8.2)
[2020-11-10 05:35] LABS: Anisocytosis Slight; HCT 23.5 % (39.0-53.0); HGB 7.7 gm/dL (13.0-17.5); Hypochromasia Slight; MCHC 32.8 g/dL (31.0-37.0); MCV 100.4 fL (80.0-100.0); Macrocytosis Moderate; Platelet Count 203 k/uL (150-450); RBC 2.34 m/uL (4.30-5.90); RDW 18.6 % (11.5-15.5); WBC 20.7 k/uL (3.8-10.6)
--- NOTE | 2020-11-10 07:21 | XR ---
EXAMINATION TYPE: XR chest 1V portable DATE OF EXAM: 11/10/2020 Comparison: 11/09/2020 Clinical History: 75-year-old male postcardiac surgery Findings: ET tube tip at the level of the medial clavicular heads. Median sternotomy wires. Prosthetic aortic v alve. NG tube is in place. Left PICC tip in the upper right atrium. Heart remains borderline enlarged . Diffuse interstitial densities persist. Continued small effusions with bibasilar opacities. Impression: Relatively stable exam with mild interstitial pulmonary edema along with small pleural effusions with adjacent atelectasis and/or consolidation.
[2020-11-10] MEDS: IPRATROPIUM-ALBUTEROL 3 ML NEB INHALATION SCH ×4 (07:40→20:10)
[2020-11-10] MEDS ORDERED: VANCOMYCIN 1,000 MG in SODIUM CHLORIDE 0.9% 250 ML IVPB SCH (08:30)
[2020-11-10 08:32] LABS: Lymphocytes # (M) 0.21 k/uL (1.0-4.8); Monocytes # (M) 0.41 k/uL (0-1.0); Neutrophils # (M) 20.08 k/uL (1.3-7.7); Neutrophils % (M) 97 %; Nucleated Red Blood Cells 0 /100 WBC (0-0); Total Cells Counted 100
[2020-11-10] MEDS ORDERED: VANCOMYCIN IV PER PHARMACY 1 EACH MISC MISCELLANE PRN (08:35)
[2020-11-10] MEDS ORDERED: FUROSEMIDE 10 MG/ML 2 ML VIAL IV ONE (08:45)
[2020-11-10 09:09] LABS: Glucose,Whole Blood 113 mg/dL (75-99)
[2020-11-10] MEDS: MULTIVITAMINS, THERA 1 EACH TAB PO SCH (09:17)
[2020-11-10] MEDS: CHLORHEXIDINE GLUCONATE 15 ML CUP MUCOUS MEM SCH ×2 (09:17→20:54)
[2020-11-10] MEDS: AMIODARONE 200 MG TAB OG-TUBE SCH ×2 (09:17→20:54)
[2020-11-10] MEDS: METOPROLOL TARTRATE 25 MG TAB PO SCH ×2 (09:17→20:54)
[2020-11-10] MEDS: ASCORBIC ACID 500 MG TAB PO SCH (09:17)
[2020-11-10] MEDS: ASPIRIN 325 MG TAB PO SCH (09:17)
[2020-11-10] MEDS: VANCOMYCIN 1,500 MG in SODIUM CHLORIDE 0.9% 250 ML IVPB SCH ×2 (09:18→20:53)
[2020-11-10] MEDS: CEFEPIME 2 GM in SODIUM CHLORIDE 0.9% 100 ML IVPB SCH ×2 (09:18→20:54)
[2020-11-10] MEDS: PANTOPRAZOLE 40 MG/10 ML VIAL IVP SCH (09:20)
--- NOTE | 2020-11-10 09:45 | P.PN ---
Subjective Progress Note Date: 11/10/20 Principal diagnosis: Severe triple vessel coronary artery disease, moderate to severe aortic valve stenosis, pulmonary hypertension and right upper lobe pulmonary nodule, suspicious for malignancy based on PET scan findings. Past medical history significant for hypertension, hyperlipidemia, right subclavian artery stenosis, coronary artery disease with previous stenting of the right coronary artery, history of right upper lobe pneumonia, COPD with preoperative FEV1 showing a predicted value of 66%, DLCO 18% of predicted value and remote history of nicotine dependence in which he quit smoking around 25 years ago. POD #6 aortic valve replacement with a 27 mm [place] Inspiris bioprosthetic aortic valve, coronary artery bypass grafting 3 with a reverse saphenous vein graft off the aorta to the circumflex coronary artery, the left anterior descending coronary artery and the posterior descending coronary artery with bilateral lower extremity greater saphenous vein endoscopic harvesting. Clip ligation of the left atrial appendage with a 35 mm Atriclip, intraoperative transesophageal echocardiogram and graft flow measurement using the [employer] system. Postoperative acute blood loss anemia and thrombocytopenia, expected given hemodilution and cardiopulmonary bypass. Prolonged mechanical ventilation, secondary acute hypoxic respiratory failure with ongoing hypoxemia, preoperative FEV1 66% of predicted value and DLCO 18% of predicted value. Paroxysmal atrial fibrillation, a known common occurrence after cardiac surgery, currently in normal sinus rhythm. Postoperative pneumonia with sputum culture positive for Citrobacter freundii, unexpected. The patient was seen in follow-up today 11/10/2020 at his bedside in the intensive care unit. The patient remains intubated with mechanical ventilator support and is sedated on propofol drip at 50 mcg/kg/m and fentanyl at 2.5 mcg/kg per hour. of oxygen saturations are 91% on current mechanical ventilator settings of assist control 24, VC +450/0.90, FiO2 100% and a PEEP of 12. ABG results this morning show a pH of 7.35, pCO2 53, pO2 72, HCO3 29, oxygen saturation 93.7 and base excess 3.5. The patient remained afebrile. He continues on cefepime for a positive sputum culture showing Citrobacter Freundii . Norepinephrine drip is infusing at 0.05 mcg/kg/m for blood pressure support, current blood pressure showing 125/49 with a map of 68. Tube feedings are currently on hold due to some residuals greater than 400 from his OG tube. Espinal catheter remains in place for accurate I's and nose with 265 mL of urine output in the last 8 hours. Bedside telemetry showing normal sinus rhythm heart rate 63 BPM. The patient underwent a bedside bronchoscopy completed by Dr. Espino yesterday with bronchial washings results pending. Chest x-ray reports this morning shows some mild interstitial pulmonary edema with small pleural effusions. A limited 2-D echocardiogram was completed yesterday which showed an overall left ventricular systolic function to be low normal with an ejection fraction between 50 and 55%. Objective - Vital Signs Vital signs: Vital Signs Temp 98.0 F 11/10/20 04:00 Pulse 64 11/10/20 08:10 Resp 26 H 11/10/20 08:00 BP 111/59 11/09/20 12:00 Pulse Ox 91 L 11/10/20 08:00 Intake & Output 11/09/20 11/10/20 11/10/20 18:59 06:59 18:59 Intake Total 3524.638 7609.607 93.961 Output Total 610 792 75 Balance 829.189 507.607 18.961 Weight 96.4 kg 97.7 kg Intake: IV 260 340 20 CO/CI 20 Cefepime 2 gm In Sodium 100 Chloride 0.9% 100 ml @ 25 mls/hr IVPB Q12HR [facility] Rx #:[id number] Lactated Ringers 1,000 ml 240 240 20 @ 20 mls/hr IV .Q24H [facility] Rx#:[id number] Intake, IV Titration 441.189 512.607 22.961 Amount Cefepime 2 gm In Sodium 100 Chloride 0.9% 100 ml @ 25 mls/hr IVPB Q12HR [facility] Rx #:[id number] DOPamine DRIP 800 mg In 9.818 Dextrose/Water 1 250ml. bag @ 2 MCG/KG/MIN 3.495 mls/hr IV .Q24H [facility] Rx#: [id number] Insulin Regular 100 unit 42.201 37.193 22.961 In Sodium Chloride 0.9% 100 ml @ Per Protocol IV .Q0M [facility] Rx#:[id number] Norepinephrine 4 mg In 5.816 Sodium Chloride 0.9% 250 ml @ 0.05 MCG/KG/MIN 18. 364 mls/hr IV .[id number] [facility] Rx#:[id number] fentaNYL (PF). 1,000 mcg 171.752 In Sodium Chloride 0.9% 80 ml @ Per Protocol IV . Q0M [facility] Rx#:[id number] propofoL 1,000 mg In 289.170 297.846 Empty Bag 1 bag @ Titrate IV .Q0M [facility] Rx#: [id number] Tube Feeding 738 357 51 Other 90 Output: Urine 610 792 75 Other: Voiding Method Indwelling Catheter Indwelling Catheter # Bowel Movements 1 ABP, PAP, CO, CI - Last Documented Arterial Blood Pressure 127/51 Pulmonary Artery Pressure 69/37 Cardiac Output 5.2 Cardiac Index 2.6 - Exam CONSTITUTIONAL: Lying in bed in the intensive care unit, remain sedated on propofol drip at 40 mcg/kg/m and fentanyl drip at 2.5 mcg/kg per hour, appears comfortable, no apparent acute distress. HEENT: Neck is supple, no JVD, no lymphadenopathy. RESPIRATORY: Lungs sounds essentially clear throughout, diminished to his bilateral bases. Respirations are symmetrical and nonlabored with mechanical ventilator support. Current mechanical ventilator settings are as follows, assist-control 24, VC+ 450/0.90, FiO2 100% and a PEEP of 12. CARDIOVASCULAR: Regular rhythm and rate. S1 and S2 present, negative for S3, gallop or murmur. Sternum is stable. Palpable peripheral pulses bilaterally, generalized edema. Heart hugger in place. Knee-high ELEONORA hose and sequential compression devices in place to his bilateral lower extremities. Bedside telemetry showing normal sinus rhythm with a right bundle branch block heart rate 63 bpm. GASTROINTESTINAL: Abdomen soft, nontender, nondistended. Active bowel sounds present 4 quadrants. No guarding or rigidity. OG tube in place, to feeding currently on hold. Bowel movement yesterday 11/09/2020. GENITOURINARY: Espinal present for accurate I&O, draining clear yellow urine. Output 265 mL in the last 8 hours. INTEGUMENTARY: Skin is warm and dry with no evidence of clubbing or cyanosis. Midline sternal incision clean dry and well approximated, covered with dry intact dressing. Bilateral lower extremity EVH sites well approximated without redness or drainage. NEUROLOGIC: Sedated on propofol drip at 40 mcg/kg/m and fentanyl drip. PERRLA. No focal deficits. PSYCHIATRIC: Unable to accurately assess at this time as the patient remains sedated with mechanical ventilator support. INVASIVE LINES AND TUBES: Atrial and ventricular epicardial pacemaker wires present, connected to bedside pacemaker generator, VVI mode with a backup of 50 BPM. - Labs CBC & Chem 7: 11/10/20 04:47 11/10/20 04:47 Labs: Abnormal Lab Results - Last 24 Hours (Table) 11/09/20 11/09/20 11/09/20 Range/Units 04:05 10:15 11:35 WBC (3.8-10.6) k/uL RBC (4.30-5.90) m/uL Hgb (13.0-17.5) gm/dL Hct (39.0-53.0) % MCV (80.0-100.0) fL RDW (11.5-15.5) % Neutrophils # (Manual) (1.3-7.7) k/uL Lymphocytes # (Manual) (1.0-4.8) k/uL ABG pCO2 (35-45) mmHg ABG pO2 (83-108) mmHg ABG HCO3 (21-25) mmol/L ABG Total CO2 (19-24) mmol/L ABG O2 Saturation (94-97) % Chloride (98-107) mmol/L BUN (9-20) mg/dL Glucose (74-99) mg/dL POC Glucose (mg/dL) 133 H 118 H (75-99) mg/dL Calcium (8.4-10.2) mg/dL Magnesium (1.6-2.3) mg/dL Total Protein (6.3-8.2) g/dL Albumin (3.5-5.0) g/dL Procalcitonin 0.18 H (0.02-0.09) ng/mL 11/09/20 11/09/20 11/09/20 Range/Units 13:58 16:22 16:34 WBC (3.8-10.6) k/uL RBC (4.30-5.90) m/uL Hgb (13.0-17.5) gm/dL Hct (39.0-53.0) % MCV (80.0-100.0) fL RDW (11.5-15.5) % Neutrophils # (Manual) (1.3-7.7) k/uL Lymphocytes # (Manual) (1.0-4.8) k/uL ABG pCO2 (35-45) mmHg ABG pO2 111 H (83-108) mmHg ABG HCO3 28 H (21-25) mmol/L ABG Total CO2 29 H (19-24) mmol/L ABG O2 Saturation 98.9 H (94-97) % Chloride (98-107) mmol/L BUN (9-20) mg/dL Glucose (74-99) mg/dL POC Glucose (mg/dL) 129 H 134 H (75-99) mg/dL Calcium (8.4-10.2) mg/dL Magnesium (1.6-2.3) mg/dL Total Protein (6.3-8.2) g/dL Albumin (3.5-5.0) g/dL Procalcitonin (0.02-0.09) ng/mL 11/09/20 11/09/20 11/10/20 Range/Units 17:55 20:50 00:19 WBC (3.8-10.6) k/uL RBC (4.30-5.90) m/uL Hgb (13.0-17.5) gm/dL Hct (39.0-53.0) % MCV (80.0-100.0) fL RDW (11.5-15.5) % Neutrophils # (Manual) (1.3-7.7) k/uL Lymphocytes # (Manual) (1.0-4.8) k/uL ABG pCO2 (35-45) mmHg ABG pO2 (83-108) mmHg ABG HCO3 (21-25) mmol/L ABG Total CO2 (19-24) mmol/L ABG O2 Saturation (94-97) % Chloride (98-107) mmol/L BUN (9-20) mg/dL Glucose (74-99) mg/dL POC Glucose (mg/dL) 139 H 139 H 128 H (75-99) mg/dL Calcium (8.4-10.2) mg/dL Magnesium (1.6-2.3) mg/dL Total Protein (6.3-8.2) g/dL Albumin (3.5-5.0) g/dL Procalcitonin (0.02-0.09) ng/mL 11/10/20 11/10/20 11/10/20 Range/Units 02:14 03:24 04:47 WBC 20.7 H (3.8-10.6) k/uL RBC 2.34 L (4.30-5.90) m/uL Hgb 7.7 L (13.0-17.5) gm/dL Hct 23.5 L (39.0-53.0) % MCV 100.4 H (80.0-100.0) fL RDW 18.6 H (11.5-15.5) % Neutrophils # (Manual) 20.08 H (1.3-7.7) k/uL Lymphocytes # (Manual) 0.21 L (1.0-4.8) k/uL ABG pCO2 (35-45) mmHg ABG pO2 (83-108) mmHg ABG HCO3 (21-25) mmol/L ABG Total CO2 (19-24) mmol/L ABG O2 Saturation (94-97) % Chloride (98-107) mmol/L BUN (9-20) mg/dL Glucose (74-99) mg/dL POC Glucose (mg/dL) 111 H 138 H (75-99) mg/dL Calcium (8.4-10.2) mg/dL Magnesium (1.6-2.3) mg/dL Total Protein (6.3-8.2) g/dL Albumin (3.5-5.0) g/dL Procalcitonin (0.02-0.09) ng/mL 11/10/20 11/10/20 11/10/20 Range/Units 04:47 05:07 09:07 WBC (3.8-10.6) k/uL RBC (4.30-5.90) m/uL Hgb (13.0-17.5) gm/dL Hct (39.0-53.0) % MCV (80.0-100.0) fL RDW (11.5-15.5) % Neutrophils # (Manual) (1.3-7.7) k/uL Lymphocytes # (Manual) (1.0-4.8) k/uL ABG pCO2 53 H (35-45) mmHg ABG pO2 72 L (83-108) mmHg ABG HCO3 29 H (21-25) mmol/L ABG Total CO2 31 H (19-24) mmol/L ABG O2 Saturation 93.7 L (94-97) % Chloride 111 H (98-107) mmol/L BUN 36 H (9-20) mg/dL Glucose 138 H (74-99) mg/dL POC Glucose (mg/dL) 113 H (75-99) mg/dL Calcium 8.2 L (8.4-10.2) mg/dL Magnesium 2.5 H (1.6-2.3) mg/dL Total Protein 5.1 L (6.3-8.2) g/dL Albumin 2.7 L (3.5-5.0) g/dL Procalcitonin (0.02-0.09) ng/mL Microbiology - Last 24 Hours (Table) 11/09/20 10:00 Gram Stain - Preliminary Bronchial Washings - Right Bronchial Washings Culture - Preliminary Assessment and Plan Assessment: 1. Severe triple-vessel coronary artery disease, status post three-vessel coronary artery bypass grafting surgery 2. Moderate to severe aortic valve stenosis, status post aortic valve replacement with a #27 mm [place] Inspiris bioprosthetic aortic valve 3. Pulmonary hypertension 4. Known right upper lobe pulmonary nodule, suspicious for malignancy based on PET scan findings 5. COPD with a preoperative FEV1 66% of predicted value and a DLCO 18% of predicted value 6. Known right subclavian artery stenosis 7. History of Hypertension 8. Hyperlipidemia 9. History of coronary artery disease with previous stenting of the right coronary artery 10. Remote history of extensive right upper lobe pneumonia with previous wedge biopsy in 2009 11. Remote history of nicotine dependence, quit smoking over 25 years ago 12. Postoperative anemia and thrombocytopenia, expected given hemodilution and cardiopulmonary bypass 13. Prolonged mechanical ventilator support, secondary to acute respiratory failure with ongoing hypoxemia 14. Paroxysmal atrial fibrillation, a known common occurrence after cardiac surgery, currently in normal sinus rhythm 16. Pneumonia, sputum culture positive for Citrobacter Freundii Plan: 1. Continue to optimize medical management with aspirin, statin, zetia, and bet a paul. Will increase metoprolol tartrate as tolerated. 2. Sputum culture showing Citrobacter freundii, currently on cefepime 2 g IV piggyback every 12 hours. Urine culture final report showed no growth. We will send cultures 2 sets this morning 1 from his PICC line and 1 peripheral set as his WBC count is trending up. 3. Wean to extubate with ventilator management, Solu-Medrol and bronchodilators management per Dr. Espino's recommendations. Continue to monitor ABGs. The patient may require a tracheostomy and PEG tube placement early next week if mechanical ventilator weaning is unsuccessful. 4. Once extubated encourage incentive spirometry use 10 times every hour while awake , increase activity as tolerated with PT/OT/cardiac rehab following. 5. Continue to monitor daily labs and chest x-rays. Electrolyte replacement per protocol. 6. Pain control with current medication regimen. Currently on fentanyl drip at 2.5 mcg/kg per hour. 7. GI/DVT prophylaxis. 8. Insulin management per primary care service. The patient is not diabetic with preoperative hemoglobin A1c 5.4%, needs tight blood sugar control to promote sternal union and prevent infection. 9. Keep left radial arterial line in place. 10. Continue Espinal catheter for another for strict accurate intake and output. Continue to monitor daily weights. 11. PICC line was placed yesterday. Routine PICC line care. 12. Wean propofol/fentanyl drips as tolerated for mechanical ventilator weaning. 13. Continue atrial and ventricular pacemaker wires with pacemaker generator to a VVI backup of 50 BPM. 14. Wean norepinephrine drip as tolerated. 15. Continue tube feedings, increase to feeding goal rate per dietitian's recommendations. 16. Continue amiodarone 200 mg per OG tube twice a day for atrial fibrillation prophylaxis. 17. The patient will undergo a CTA of his chest today for further evaluation. 18. More recommendations to follow based on patient's clinical course. Time with Patient: Greater than 30
[2020-11-10] MEDS: NOREPINEPHRINE 4 MG in SODIUM CHLORIDE 0.9% 250 ML IV SCH ×2 (10:59→19:04)
[2020-11-10 11:10] LABS: Glucose,Whole Blood 133 mg/dL (75-99)
[2020-11-10] MEDS ORDERED: DEXTROSE 5% IN WATER 100 ML with AMIODARONE 150 MG IV ONE ×2 (11:30→17:27)
[2020-11-10] MEDS: METOCLOPRAMIDE 5 MG/ML 2 ML VIAL IVP SCH ×3 (12:01→23:03)
--- NOTE | 2020-11-10 13:32 | P.PN ---
Subjective Progress Note Date: 11/10/20 This is a 75-year-old male patient, underwent an aortic valve replacement with a bioprosthetic aortic valve and three-vessel bypass surgery with vein grafts and the patient is currently postoperative in intensive care unit. The patient is known to have coronary artery disease. He has undergone previous coronary intervention stenting of an 80% RCA lesion. He was symptomatic and further investigation revealed triple-vessel disease and for that reason he was taken to the operating room. He is also moderately severe aortic stenosis. Currently is sedated on propofol which is running at 25 mg/kg per minute. Is quite sedated on a mechanical ventilator. His blood gases showed a respiratory acidosis with a pH of 7.136 and a pCO2 of 73 and pO2 of 71. This was an assist-control mode at the rate of 14 with a tidal volume of 450 and FiO2 of 1 and a PEEP of 5. Since then, the PEEP has been increased up to 8, and his respiratory rate is up to 24. Current pulse ox on the monitor that 90%.. The patient has 2 mediastinal chest tubes and 1 pleural chest tube. Output from mediastinal chest tube has been around 450 mL and output from the left pleural chest tube is been around 130 mL since the patient up from the operating room. The patient is hemodynamically supported with Primacor at 0.25 mcg/kg per minute and the patient is also on nitroglycerin drip at 25 g 5 minutes. Patient has a cardiac index of 2.3. Pulmonary artery pressures of 61/31. He is on insulin drip running at 1.5 units an hour. He has an adequate urine output. Chest x-ray postop showed adequate expansion of both lungs. No this of pneumothorax. ET tube is in good location. Allison-Magdaleno remains in a good location. The patient is an OG tube and 2 mediastinal and 1 pleural chest tube on of the mandible location there is no evidence of any pneumothorax. Cardiac rhythm is sinus. 11/05/2020, the patient remains on a mechanical ventilator. I was unable to wean him yesterday because of his limited oxygenation. Overnight, the patient was kept on a PEEP of 8 and his FiO2 is down to 90% and he has a tidal volume of 450 with a rate of 24. His peak airway pressure this morning is at 24. The morning blood gases showed a pH of 7.44 with a pCO2 of 41 and pO2 of 65. Based on that, I increased the PEEP up to 10 and 30. Blood gases showed a pH of 7.45 with a pCO2 of 40 and pO2 of 92. His FiO2 subsequently was found to 60%. This current pulse ox is 93%. He remains sedated with propofol and he is currently on 20 mcg/kg per minute and is well rested for now. He has 2 mediastinal chest tubes and a left pleural chest tube. Output from the mediastinal chest tube has been 10-20 mL's an hour and from the pleural chest tube is in order of 10-20 mL an hour. The patient's is hemodynamically stable. He is off milrinone for now. Cardiac index is in order of 2.4 with an output of 4.8. There has been impr ovement in the pulmonary artery pressures which is dropped down to 43/25. His CVP is currently at 8. His morning hemoglobin was at 7.5 and the patient was given a unit of packed RBC. He has a RHINA drain in his left lower extremity, output is bloody and minimal at this point in time. His cardiac rhythm is sinus. He is on an insulin drip running at 1.5 units an hour. He is off the nitroglycerin drip. He was given IV Solu Medrol yesterday regarding COPD and some increased bronchospasm and wheeze. He is also on bronchodilators. Chest x-ray from today shows adequate expansion of both lungs. There is a right upper lobe pulmonary nodule that was evident on the previous PET scan. Chronic no dularity and scarring in the left upper lobe also. No sizable pneumothorax. Minimal atelectatic changes and effusion the lung bases. Mediastinal chest tubes and left pleural chest tube of been in good location. Count is up from 82 down to 67. Also is following some simple commands and he can be aroused out of his sedation upon stimulation. 11/06/2020 him I'm seeing this patient for a follow-up. The patient remains intubated. We had some issues with his oxygenation and for that reason his extubation has been delayed. In summary, the patient remains on a mechanical ventilator. This morning he is an assist-control mode at the rate of 24 with a tidal volume of 450 and FiO2 of 60% with a PEEP of 12. Blood gases from today shows a pH of 7.46 orally 6 with a pCO2 of 38 and pO2 of 75. Chest x-ray showing some limited interstitial edema/pulmonary edema and the patient would benefit from some diuretics. His coronary artery pressures have been lower postop and is currently at the pressure of 51/26. CVP is at 7. Cardiac output is 5.3 with an index of 2.7. He is off milrinone. Is off the nitroglycerin drip. He is still on insulin drip at 1.5 units an hour. The output from the mediastinal tube has been 300 over the past 24 hours and output from the left pleural chest tube is 200 mL over the past 24 hours. Output remains somewhat bloody. No evidence of any air leak. No evidence of any pneumothorax on his chest x-ray. He remains sedated with propofol which is running at 30 mg/kg/m. He did have some loose liquidy bloody rest of the secretions which is being suctioned out of his orotracheal tube. Otherwise, his cardiac rhythm remains sinus. Occasional junctional rhythm was also noted. RHINA drain from his left lower extremity has been removed. On today's evaluation on 11/07/2020 patient is seen in the intensive care unit, sedated and intubated, on assist-control mode of ventilation, with a rate of 24, M is 450, FiO2 of 60% and PEEP of 12. This morning his blood gases showed pO2 of 76, pCO2 of 38, and pH is 7.46, today's chest x-ray has been reviewed showing no evidence of pneumothorax, mild scattered ulnar edema, and left lower lobe atelectasis. Patient received a dose of IV Lasix yesterday, however he is still in +200 mL fluid balance over the last 24 hours, he was given an additional dose of IV Lasix this morning per CT surgery. Yesterday an attempt was made to wean down FiO2 however patient's FiO2 down to 50%, however follow-up blood gas showed severe worsening of oxygenation, and pO2 of 46%. His PEEP was increased to 12, and FiO2 at 60%. In addition patient went into A. fib with RVR last night, he was started on amiodarone infusion which is currently infusing at 0.5 mg/m. He is on Diprivan at 40 mics per kilo per minute, lactated Ringer's at 50 ML per hour. Insulin at 3 units per hour. Currently patient remains in A. fib with a better controlled rate at 73 BPM, blood pressure is 122/54, PA pressures 61/31, CVP is 10, article output is 4.7, cardiac index is 2.4. Patient has one mediastinal and one mediastinal chest tube connected to left pleural chest tubes with minimal outputs overnight, no evidence of air leak noted. Epicardial wires are in place, grounded to the chest. Currently not on any anticoagulation, except for full dose aspirin 325 mg. Today's platelet count is 82, HIT antibodies have been sent and are pending right now, as today's blood work has been reviewed showing white blood cell, 12.7, hemoglobin is 7.9, actually lites are within normal limits, B1 is 21 creatinine 0.73. Patient did receive multip le blood products in the postoperative period, 3 units of packed red blood cells, 4 units of FFP, 1 unit of cryoprecipitate, and 1 unit of platelets. There has been no evidence of active bleeding, minimal output from the chest tubes. 11/08/2020, I'm seeing this patient for a follow-up. Unfortunately, the patient remains intubated on a mechanical ventilator and we have been able to wean this patient off the mechanical ventilator. The patient is postop day #4. His oxidation is become an ongoing issue. Unable to cut down the PEEP under 10 as the patient desaturates significantly. His chest x-ray showing some leg by the pulmonary infiltrates in the sputum is positive for Citrobacter and for that reason the patient was started on IV cefepime 2 g every 12 hours. Nevertheless, he has no leukocytosis or fever. Meanwhile, while being a mechanical ventilator, is an assist-control mode at the rate of 24 with a tidal volume of 450 and FiO2 of 70% with a PEEP of 10. Note that overnight, the patient desaturated and had to bring him up to 100% and The PEEP at 10. He was able to wean down as low as 70%. Subsequently, blood gases was done earlier this morning that showed a pH of 7.45 with a pCO2 of 40 and pO2 of 97 and this was on FiO2 of 80%. FiO2 was gradually wean down to 50% and a PEEP was brought down to 10. He was doing well and the subsequent blood gases showed a pH of 7.46 with a pCO2 of 40 and pO2 of 79. I was getting ready to wean this patient off the sedation try to assess his mental status. I dropped the PEEP down to 9 and subsequent his pulse ox dropped down to the low 80s. I to bring up the PEEP back to 10 lengthy is FiO2 back to 80%. Meanwhile, hemodynamically is doing well. His peak air pressures around 24 anesthetic pressures around 17. He is not any bronchospastic and wheezy. He is on a propofol drip running at 40 mg/kg/m. Is on lactated Ringer 20 mL's an hour. Cardiac index is at 2.5 with a output of 4.5. CVP is ranging between 4 and 6. Pulmonary artery pressures are 43/24. He is insulin drip is running at 4 units an hour. His cardiac rhythm is sinus. He did have a run of atrial fibrillation that was treated and the patient is back to normal sinus rhythm. The patient otherwise was started on enteral feeding for nutritional support and is currently on vital high protein at the rate of 40 mL an hour. Case has been discussed extensively with the cardiothoracic team. 11/09/2020, the patient is postop day #5. Remains intubated on a mechanical ventilator. Oxygenation has become an ongoing issue with the patient where we were not able to wean down his vent settings with a palpated oxygenation. Overnight, the patient was quite symptoms with a mechanical ventilator. I had to put him on a VC plus mode with tidal volume of 450, rate of 24, I time of 0.9 seconds, and currently is on a PEEP of 12 with an FiO2 of 70%. Chest x-ray showing bilateral fluffy pulmonary infiltrates consistent with pneumonia. His sputum cultures showing Citrobacter and the patient is ready covered with IV cefepime. No evidence of any pneumothorax. Left pleural chest tube will be pulled out today. Hemodynamically, the patient did have some hypotension overnight and he was given a bolus of 500 mL of fluid and currently is normotensive on no pressors. He is on a renal dose of dopamine and this was started by the cardiothoracic surgeon. The urine output is in order of 50-75 mL an hour. Pulmonary artery pressure 62/27. CVP is between 6 and 8. Cardiac output is 6.2 with an index of 3.1. Maintenance fluids are running at 20 mL an hour. Enteral feeding for nutritional support was started yesterday in the form of vital high protein and the patient is at the rate of 65 mL an hour. He is tolerating his enteral feeding for nutritional support. Cardiac rhythm is sinus. He did have a run of atrial fibrillation yesterday without a rapid ventricular control for around 5 hours. And he converted earlier this morning back to sinus. Patient is currently on propofol which is running at's an hour. The patient is adequately sedated. Is having some issues with pain. He was given oral Wayne. Overnight he was also given Dilaudid for pain control which improved also synchrony with a mechanical ventilator. Overall condition remains critical. The patient has had difficulties in weaning off the respirator, probably due to development of a bilateral pneumonia in addition to some background COPD. Blood gases from today showed a pH of 7.4 with a pCO2 of 47 and pO2 of 64 and this was done and FiO2 of 70% with a PEEP of 12. Renal function stable at creatinine of 0.7. White cell count is up to 15.4 and the patient's hemoglobin is at 7.7. He continues to have a 6% bandemia. 11/10/2020, the patient is postop day #6 and the patient has failed to wean off the mechanical ventilator. The patient remains on assist control mode of ventilation, VC plus mode with a tidal volume of 450, FiO2 of 100% and a PEEP of 12. Morning blood gases showed a pH of 7.35 with a pCO2 53 and pO2 of 72. This was on FiO2 of 80%. The patient subsequently desaturated and had to be placed on on the percent. The peak airway pressure is currently at 27 with metastatic a pressure of 18. Remains on bronchodilators. He remains on steroids. Chest x-rays revealing bilateral pulmonary infiltrates, interstitial edema with areas of consolidation. A PICC line was also noted to be in a lace through the left upper extremity. The patient remains on IV cefepime. Chest tubes have been removed. He is sedated with propofol at the rate of 50 medical respiratory kilogram per minute. Overnight, the patient was also quite asynchronous and restless. Fentanyl was added which is currently running at 2.5 mcg/kg/h. He is also on lactated Ringer at 50 mL an hour. He is on a low dose norepinephrine infusion running at 0.03 mcg/kg per minute. Cardiac rhythm is sinus. He is receiving vital high protein boluses. It was noted that the patie nt had increased residual. The tube feeds have been On hold. Note that the patient underwent a bronchoscopy and the bronchioloalveolar lavage was also done yesterday and the results are still pending for now. The sputum analysis and culture grew Citrobacter and the patient is currently on IV cefepime. Is afebrile. His white cell count was rising and is currently at 20.7 with a stable hemoglobin of 7.7. Rest of the blood work and electrodes are all within normal limits. Sodium level is at 143. Potassium is at 4.7. The pro calcitonin level was at 0.18. Objective - Vital Signs Vital signs: Vital Signs Temp 98.4 F 11/10/20 08:15 Pulse 81 11/10/20 13:15 Resp 24 11/10/20 13:15 BP 73/59 11/10/20 11:45 Pulse Ox 97 11/10/20 13:15 Intake & Output 11/09/20 11/10/20 11/10/20 18:59 06:59 18:59 Intake Total 3088.373 3972.607 1113.766 Output Total 639 200 8049 Balance 829.189 507.607 113.766 Weight 96.4 kg 97.7 kg Intake: IV 260 340 570 CO/CI 20 Cefepime 2 gm In Sodium 100 100 Chloride 0.9% 100 ml @ 25 mls/hr IVPB Q12HR CINDY Rx #:[id number] Dextrose 5% in Water 100 100 ml @ 618 mls/hr IV .Q10M ONE with Amiodarone 150 mg Rx#:[id number] Lactated Ringers 1,000 ml 240 240 120 @ 50 mls/hr IV .Q20H CINDY Rx#:[id number] Vancomycin 1,500 mg In 250 Sodium Chloride 0.9% 250 ml @ 125 mls/hr IVPB Q12H CINDY Rx#:[id number] Intake, IV Titration 441.189 512.607 392.766 Amount Cefepime 2 gm In Sodium 100 Chloride 0.9% 100 ml @ 25 mls/hr IVPB Q12HR CINDY Rx #:[id number] DOPamine DRIP 800 mg In 9.818 Dextrose/Water 1 250ml. bag @ 2 MCG/KG/MIN 3.495 mls/hr IV .Q24H CINDY Rx#: [id number] Insulin Regular 100 unit 42.201 37.193 22.961 In Sodium Chloride 0.9% 100 ml @ Per Protocol IV .Q0M CINDY Rx#:[id number] Norepinephrine 4 mg In 5.816 169.805 Sodium Chloride 0.9% 250 ml @ 0.05 MCG/KG/MIN 18. 364 mls/hr IV .[id number] CINDY Rx#:[id number] fentaNYL (PF). 1,000 mcg 171.752 100 In Sodium Chloride 0.9% 80 ml @ Per Protocol IV . Q0M CINDY Rx#:[id number] propofoL 1,000 mg In 289.170 297.846 100 Empty Bag 1 bag @ Titrate IV .Q0M CINDY Rx#: [id number] Tube Feeding 738 357 151 Other 90 Output: Gastric Drainage 400 Urine 610 792 600 Other: Voiding Method Indwelling Catheter Indwelling Catheter # Bowel Movements 1 ABP, PAP, CO, CI - Last Documented Arterial Blood Pressure 123/53 Pulmonary Artery Pressure 69/37 Cardiac Output 5.2 Cardiac Index 2.6 - Exam Gen. appearance the patient sedated, comfortable not in acute respiratory distress orogastric and orotracheal tube are both in place. The patient is quite successful mechanical ventilator. Head exam was generally normal. There was no scleral icterus or corneal arcus. Mucous membranes were moist. Neck was supple and without jugular venous distension, thyromegaly, or carotid bruits. Carotids were easily palpable bilaterally. There was no adenopathy. The patient has a right IJ Allison-Magdaleno catheter in place Lungs sounds are equal and symmetrical bilaterally. Patient has 2 mediastinal chest tube and 1 pleural chest tube. No evidence of any air leak. Output has been noted Cardiac exam revealed the PMI to be normally situated and sized. The rhythm was regular and no extrasystoles were noted during several minutes of auscultation. The first and second heart sounds were normal and physiologic splitting of the second heart sound was noted. There were no murmurs, rubs, clicks, or gallops. Sternum stable clean and intact. Abdominal exam revealed normal bowel sounds. The abdomen was soft, non-tender, and without masses, organomegaly, or appreciable enlargement of the abdominal aorta. Extremities the patient is a RHINA drain in the left lower extremity. Pulses are equal and symmetrical diminished. Extremities are cold. No cyanosis or clubbing. Neurologically sedated, pupils are equal and reactive to light. - Labs CBC & Chem 7: 11/10/20 04:47 11/10/20 04:47 Labs: Abnormal Lab Results - Last 24 Hours (Table) 11/09/20 11/09/20 11/09/20 Range/Units 04:05 13:58 16:22 WBC (3.8-10.6) k/uL RBC (4.30-5.90) m/uL Hgb (13.0-17.5) gm/dL Hct (39.0-53.0) % MCV (80.0-100.0) fL RDW (11.5-15.5) % Neutrophils # (Manual) (1.3-7.7) k/uL Lymphocytes # (Manual) (1.0-4.8) k/uL ABG pCO2 (35-45) mmHg ABG pO2 111 H (83-108) mmHg ABG HCO3 28 H (21-25) mmol/L ABG Total CO2 29 H (19-24) mmol/L ABG O2 Saturation 98.9 H (94-97) % Chloride (98-107) mmol/L BUN (9-20) mg/dL Glucose (74-99) mg/dL POC Glucose (mg/dL) 129 H (75-99) mg/dL Calcium (8.4-10.2) mg/dL Magnesium (1.6-2.3) mg/dL Total Protein (6.3-8.2) g/dL Albumin (3.5-5.0) g/dL Procalcitonin 0.18 H (0.02-0.09) ng/mL 11/09/20 11/09/20 11/09/20 Range/Units 16:34 17:55 20:50 WBC (3.8-10.6) k/uL RBC (4.30-5.90) m/uL Hgb (13.0-17.5) gm/dL Hct (39.0-53.0) % MCV (80.0-100.0) fL RDW (11.5-15.5) % Neutrophils # (Manual) (1.3-7.7) k/uL Lymphocytes # (Manual) (1.0-4.8) k/uL ABG pCO2 (35-45) mmHg ABG pO2 (83-108) mmHg ABG HCO3 (21-25) mmol/L ABG Total CO2 (19-24) mmol/L ABG O2 Saturation (94-97) % Chloride (98-107) mmol/L BUN (9-20) mg/dL Glucose (74-99) mg/dL POC Glucose (mg/dL) 134 H 139 H 139 H (75-99) mg/dL Calcium (8.4-10.2) mg/dL Magnesium (1.6-2.3) mg/dL Total Protein (6.3-8.2) g/dL Albumin (3.5-5.0) g/dL Procalcitonin (0.02-0.09) ng/mL 11/10/20 11/10/20 11/10/20 Range/Units 00:19 02:14 03:24 WBC (3.8-10.6) k/uL RBC (4.30-5.90) m/uL Hgb (13.0-17.5) gm/dL Hct (39.0-53.0) % MCV (80.0-100.0) fL RDW (11.5-15.5) % Neutrophils # (Manual) (1.3-7.7) k/uL Lymphocytes # (Manual) (1.0-4.8) k/uL ABG pCO2 (35-45) mmHg ABG pO2 (83-108) mmHg ABG HCO3 (21-25) mmol/L ABG Total CO2 (19-24) mmol/L ABG O2 Saturation (94-97) % Chloride (98-107) mmol/L BUN (9-20) mg/dL Glucose (74-99) mg/dL POC Glucose (mg/dL) 128 H 111 H 138 H (75-99) mg/dL Calcium (8.4-10.2) mg/dL Magnesium (1.6-2.3) mg/dL Total Protein (6.3-8.2) g/dL Albumin (3.5-5.0) g/dL Procalcitonin (0.02-0.09) ng/mL 11/10/20 11/10/20 11/10/20 Range/Units 04:47 04:47 05:07 WBC 20.7 H (3.8-10.6) k/uL RBC 2.34 L (4.30-5.90) m/uL Hgb 7.7 L (13.0-17.5) gm/dL Hct 23.5 L (39.0-53.0) % MCV 100.4 H (80.0-100.0) fL RDW 18.6 H (11.5-15.5) % Neutrophils # (Manual) 20.08 H (1.3-7.7) k/uL Lymphocytes # (Manual) 0.21 L (1.0-4.8) k/uL ABG pCO2 53 H (35-45) mmHg ABG pO2 72 L (83-108) mmHg ABG HCO3 29 H (21-25) mmol/L ABG Total CO2 31 H (19-24) mmol/L ABG O2 Saturation 93.7 L (94-97) % Chloride 111 H (98-107) mmol/L BUN 36 H (9-20) mg/dL Glucose 138 H (74-99) mg/dL POC Glucose (mg/dL) (75-99) mg/dL Calcium 8.2 L (8.4-10.2) mg/dL Magnesium 2.5 H (1.6-2.3) mg/dL Total Protein 5.1 L (6.3-8.2) g/dL Albumin 2.7 L (3.5-5.0) g/dL Procalcitonin (0.02-0.09) ng/mL 11/10/20 11/10/20 Range/Units 09:07 11:09 WBC (3.8-10.6) k/uL RBC (4.30-5.90) m/uL Hgb (13.0-17.5) gm/dL Hct (39.0-53.0) % MCV (80.0-100.0) fL RDW (11.5-15.5) % Neutrophils # (Manual) (1.3-7.7) k/uL Lymphocytes # (Manual) (1.0-4.8) k/uL ABG pCO2 (35-45) mmHg ABG pO2 (83-108) mmHg ABG HCO3 (21-25) mmol/L ABG Total CO2 (19-24) mmol/L ABG O2 Saturation (94-97) % Chloride (98-107) mmol/L BUN (9-20) mg/dL Glucose (74-99) mg/dL POC Glucose (mg/dL) 113 H 133 H (75-99) mg/dL Calcium (8.4-10.2) mg/dL Magnesium (1.6-2.3) mg/dL Total Protein (6.3-8.2) g/dL Albumin (3.5-5.0) g/dL Procalcitonin (0.02-0.09) ng/mL Microbiology - Last 24 Hours (Table) 11/09/20 10:00 Gram Stain - Preliminary Bronchial Washings - Right Bronchial Washings Culture - Preliminary Assessment and Plan Plan: 1 multivessel coronary artery disease, symptomatic, post three-vessel bypass surgery with venous graft and aortic valve replacement. The patient is postop day #6. Hemodynamically stable and with adequate cardiac output and cardiac index. Still requiring low-dose pressors. Otherwise, hemodynamically stable. Norepinephrine infusion is running at 0.03 mg/kg/m. 2 acute hypoxic respiratory failure. The blood gas also showed a component of hypercapnic respiratory failure, acute. Patient has developed bilateral pulmonary infiltrates and the sputum is growing Citrobacter and the patient was started on IV cefepime. Remains on a mechanical ventilator. Unable to wean. PEEP is at 12 and FiO2 of 80 and subsequently up to 100%. The patient but the pulmonary infiltrates. There are some interstitial and areas of consolidation. Consider pneumonia, and a pro-calcitonin level is mildly elevated and the patient has Citrobacter in the sputum. As such, the patient is currently on IV cefepime. Bronchoscopy and the bronchioloalveolar lavage was done. The results of the bronchioloalveolar lavage is still pending for now. He has failed to wean because of difficulties and oxygenation. Rule out component of ARDS on top of pneumonia. Patient has advanced COPD and the background. 3 coronary artery disease with previous stenting of the RCA 4 COPD 5 history of extensive right upper lobe pneumonia 6 history of right upper lobe pulmonary nodule identified on a CAT scan of the chest with an average PET scan obesity workup postop with a higher suspicious for malignancy based on the PET scan findings 7 hypertension 8 hyperlipidemia 9 degenerative arthritis. Plan Keep the PEEP at 12 and the FiO2 of 100%, try to wean Keep the patient on AVC plus nodes with either volume of 450 which has made this patient quite successful the mechanical ventilator Keep the patient sedated with a combination of propofol and fentanyl Continue cefepime, and provide the patient a dose of vancomycin pending cultures from the bronchioloalveolar lavage We'll do a bronchoscopy and the bronchioloalveolar lavage Management of pressors and hemodynamics per cardiothoracic surgery. Proceed with a CT angiogram Continue bronchodilators and steroids Remove the chest tube. Continue insulin drip Enteral feeding has been initiated We'll continue to follow. . Critical care evaluation was on a more than 30 minutes.
--- NOTE | 2020-11-10 13:55 | P.PN ---
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 He follows in the office with Dr. Bowling. We are on consult for post operative management. 11/04/20 Patient underwent aortic valve replacement and coronary artery bypass grafting 3 with a reverse saphenous vein graft off the aorta to the circumflex coronary artery, the left anterior descending coronary artery and the posterior descending coronary artery with bilateral lower extremity greater saphenous vein endoscopic harvesting. Clip ligation of the left atrial appendage. Patient course has been complicated by poor oxygenation, ongoing hypoxemia and prolonged mechanical ventilation, and paroxysmal atrial fibrillatoin. 11/07/20 Patient seen and examined at bedside, in the intensive care unit. In no acute distress. He is remain sedated on propofol drip at 30 mcg/kg/m, remains intubated. Last evening around 8 PM the patient went into atrial fibrillation and was started on the amiodarone protocol, currently the amiodarone is infusing at 0.5 mg/m. Bedside telemetry showing normal sinus rhythm heart rate in 70s. He remains intubated with current mechanical ventilator settings assist control 24, TV 450, FiO2 60% and a PEEP of 12. He is hemodynamically stable. CVP 10. Not on any pressor/inotrope support. Continues to have chest tubes and Right IJ Cordis with swan-magdaleno catheter present. Patient is currently maintained on aspirin 325 mg daily, atorvastatin 80 mg nightly, Zetia at 10 mg nightly, metoprolol tartrate 25 mg twice a day, amiodarone 0.5mg/min, IV Lasix 40mg once today. Patient's beta paul was increased today. Patient started on PO amiodarone 400mg BID 11/09/2020: Patient seen and examined at bedside, in the intensive care unit. Overnight patient became hypotensive SBP 60s, patient also had some bradycardia patient started on a low dose dopamine drip. He is currently intubated on mechanical ventilation. Mechanical ventilator settings assist control 24, TV 450, FiO2 80% and a PEEP of 12. His chest xray this morning revealed bibasilar opacities appears worsening from yesterday. Limited Echocardiogram revealed, EF 50-55%, poor visualization of the aortic valve. He is currently on propofol 55mcg/k g/min, aspirin 325 mg daily, atorvastatin 80 mg nightly, Zetia at 10 mg nightly, metoprolol tartrate 25 mg twice a day, amiodarone 400mg BID, cefepime for a positive sputum culture showing Citrobacter Freundii. 11/10/2020: Patient seen this morning in the intensive care unit. Patient underwent bron choscopy and bronchial lavage with pulmonary yesterday results pending. Patient continues to be intubated and on mechanical ventilation. His FiO2 had to be increased to 100%. Current mechanical ventilator settings of AC 24, FiO2 100% and a PEEP of 12. Sedated on propofol at 50mcg/kg/m and fentanyl 2.5mcg/kg/hr. Chest xray reveals ARDS. Overnight patient requiring IV Fentanyl and requiring IV norepinephrine 0.05mcg/kg/min due to hypotension. Patient with no further episodes of atrial fibrillation overnight. Blood pressure 123/53, heart rate 81, afebrile. I/Os 1.4L output over the past 24 hours. GENERAL: Intubated and sedated on propofol and fentanyl NECK: Supple without JVD or thyromegaly. right IJ [place]-Magdaleno catheter in place LUNGS: Intubated. On mechanical ventilator. Respiration equal and symmetrical HEART: Regular rate and rhythm without murmurs, rubs or gallops. S1 and S2 heard. Atrial and ventricular epicardial pacemaker wires present EXTREMITIES: No clubbing or cyanosis. Peripheral pulses intact. Left radial arterial line placed ASSESSMENT Severe triple-vessel coronary artery disease, status post 3 vessel CABG 11/04/20 Moderate to severe aortic valve stenosis, status post aortic valve replacement 11/04/20 Prolonged mechanism ventilation post operatively Acute hypoxic respiratory failure Known right upper lobe pulmonary nodule, suspicious for malignancy based on PET scan findings COPD History of hypertension Hyperlipidemia History of CAD with previous stenting RCA New onset Paroxysmal atrial fibrillation, currently in normal sinus rhythm Anemia PLAN Will given IV Lasix 20mg x 1 Will decrease amiodarone to 200mg BID Continue medical management with aspirin, statin, zetia Continue PO amiodarone Pulmonary following, wean to extubate with ventilator management per pulmonary Post operative management per CT surgery Further recommendations based on clinical course Nurse Practitioner note has been reviewed, I agree with a documented findings and plan of care. Patient was seen and examined. Objective - Vital Signs Vital signs: Vital Signs Temp 98.4 F 11/10/20 08:15 Pulse 81 11/10/20 13:15 Resp 24 11/10/20 13:15 BP 73/59 11/10/20 11:45 Pulse Ox 97 11/10/20 13:15 Intake & Output 11/09/20 11/10/20 11/10/20 18:59 06:59 18:59 Intake Total 1029.256 2734.607 1113.766 Output Total 466 644 1609 Balance 829.189 507.607 113.766 Weight 96.4 kg 97.7 kg Intake: IV 260 340 570 CO/CI 20 Cefepime 2 gm In Sodium 100 100 Chloride 0.9% 100 ml @ 25 mls/hr IVPB Q12HR [facility] Rx #:[id number] Dextrose 5% in Water 100 100 ml @ 618 mls/hr IV .Q10M ONE with Amiodarone 150 mg Rx#:[id number] Lactated Ringers 1,000 ml 240 240 120 @ 50 mls/hr IV .Q20H [facility] Rx#:[id number] Vancomycin 1,500 mg In 250 Sodium Chloride 0.9% 250 ml @ 125 mls/hr IVPB Q12H [facility] Rx#:[id number] Intake, IV Titration 441.189 512.607 392.766 Amount Cefepime 2 gm In Sodium 100 Chloride 0.9% 100 ml @ 25 mls/hr IVPB Q12HR [facility] Rx #:[id number] DOPamine DRIP 800 mg In 9.818 Dextrose/Water 1 250ml. bag @ 2 MCG/KG/MIN 3.495 mls/hr IV .Q24H [facility] Rx#: [id number] Insulin Regular 100 unit 42.201 37.193 22.961 In Sodium Chloride 0.9% 100 ml @ Per Protocol IV .Q0M [facility] Rx#:[id number] Norepinephrine 4 mg In 5.816 169.805 Sodium Chloride 0.9% 250 ml @ 0.05 MCG/KG/MIN 18. 364 mls/hr IV .[id number] [facility] Rx#:[id number] fentaNYL (PF). 1,000 mcg 171.752 100 In Sodium Chloride 0.9% 80 ml @ Per Protocol IV . Q0M [facility] Rx#:[id number] propofoL 1,000 mg In 289.170 297.846 100 Empty Bag 1 bag @ Titrate IV .Q0M [facility] Rx#: [id number] Tube Feeding 738 357 151 Other 90 Output: Gastric Drainage 400 Urine 610 792 600 Other: Voiding Method Indwelling Catheter Indwelling Catheter # Bowel Movements 1 ABP, PAP, CO, CI - Last Documented Arterial Blood Pressure 123/53 Pulmonary Artery Pressure 69/37 Cardiac Output 5.2 Cardiac Index 2.6 - Labs CBC & Chem 7: 11/10/20 04:47 11/10/20 04:47 Labs: Abnormal Lab Results - Last 24 Hours (Table) 11/09/20 11/09/20 11/09/20 Range/Units 04:05 13:58 16:22 WBC (3.8-10.6) k/uL RBC (4.30-5.90) m/uL Hgb (13.0-17.5) gm/dL Hct (39.0-53.0) % MCV (80.0-100.0) fL RDW (11.5-15.5) % Neutrophils # (Manual) (1.3-7.7) k/uL Lymphocytes # (Manual) (1.0-4.8) k/uL ABG pCO2 (35-45) mmHg ABG pO2 111 H (83-108) mmHg ABG HCO3 28 H (21-25) mmol/L ABG Total CO2 29 H (19-24) mmol/L ABG O2 Saturation 98.9 H (94-97) % Chloride (98-107) mmol/L BUN (9-20) mg/dL Glucose (74-99) mg/dL POC Glucose (mg/dL) 129 H (75-99) mg/dL Calcium (8.4-10.2) mg/dL Magnesium (1.6-2.3) mg/dL Total Protein (6.3-8.2) g/dL Albumin (3.5-5.0) g/dL Procalcitonin 0.18 H (0.02-0.09) ng/mL 11/09/20 11/09/20 11/09/20 Range/Units 16:34 17:55 20:50 WBC (3.8-10.6) k/uL RBC (4.30-5.90) m/uL Hgb (13.0-17.5) gm/dL Hct (39.0-53.0) % MCV (80.0-100.0) fL RDW (11.5-15.5) % Neutrophils # (Manual) (1.3-7.7) k/uL Lymphocytes # (Manual) (1.0-4.8) k/uL ABG pCO2 (35-45) mmHg ABG pO2 (83-108) mmHg ABG HCO3 (21-25) mmol/L ABG Total CO2 (19-24) mmol/L ABG O2 Saturation (94-97) % Chloride (98-107) mmol/L BUN (9-20) mg/dL Glucose (74-99) mg/dL POC Glucose (mg/dL) 134 H 139 H 139 H (75-99) mg/dL Calcium (8.4-10.2) mg/dL Magnesium (1.6-2.3) mg/dL Total Protein (6.3-8.2) g/dL Albumin (3.5-5.0) g/dL Procalcitonin (0.02-0.09) ng/mL 11/10/20 11/10/20 11/10/20 Range/Units 00:19 02:14 03:24 WBC (3.8-10.6) k/uL RBC (4.30-5.90) m/uL Hgb (13.0-17.5) gm/dL Hct (39.0-53.0) % MCV (80.0-100.0) fL RDW (11.5-15.5) % Neutrophils # (Manual) (1.3-7.7) k/uL Lymphocytes # (Manual) (1.0-4.8) k/uL ABG pCO2 (35-45) mmHg ABG pO2 (83-108) mmHg ABG HCO3 (21-25) mmol/L ABG Total CO2 (19-24) mmol/L ABG O2 Saturation (94-97) % Chloride (98-107) mmol/L BUN (9-20) mg/dL Glucose (74-99) mg/dL POC Glucose (mg/dL) 128 H 111 H 138 H (75-99) mg/dL Calcium (8.4-10.2) mg/dL Magnesium (1.6-2.3) mg/dL Total Protein (6.3-8.2) g/dL Albumin (3.5-5.0) g/dL Procalcitonin (0.02-0.09) ng/mL 11/10/20 11/10/20 11/10/20 Range/Units 04:47 04:47 05:07 WBC 20.7 H (3.8-10.6) k/uL RBC 2.34 L (4.30-5.90) m/uL Hgb 7.7 L (13.0-17.5) gm/dL Hct 23.5 L (39.0-53.0) % MCV 100.4 H (80.0-100.0) fL RDW 18.6 H (11.5-15.5) % Neutrophils # (Manual) 20.08 H (1.3-7.7) k/uL Lymphocytes # (Manual) 0.21 L (1.0-4.8) k/uL ABG pCO2 53 H (35-45) mmHg ABG pO2 72 L (83-108) mmHg ABG HCO3 29 H (21-25) mmol/L ABG Total CO2 31 H (19-24) mmol/L ABG O2 Saturation 93.7 L (94-97) % Chloride 111 H (98-107) mmol/L BUN 36 H (9-20) mg/dL Glucose 138 H (74-99) mg/dL POC Glucose (mg/dL) (75-99) mg/dL Calcium 8.2 L (8.4-10.2) mg/dL Magnesium 2.5 H (1.6-2.3) mg/dL Total Protein 5.1 L (6.3-8.2) g/dL Albumin 2.7 L (3.5-5.0) g/dL Procalcitonin (0.02-0.09) ng/mL 11/10/20 11/10/20 Range/Units 09:07 11:09 WBC (3.8-10.6) k/uL RBC (4.30-5.90) m/uL Hgb (13.0-17.5) gm/dL Hct (39.0-53.0) % MCV (80.0-100.0) fL RDW (11.5-15.5) % Neutrophils # (Manual) (1.3-7.7) k/uL Lymphocytes # (Manual) (1.0-4.8) k/uL ABG pCO2 (35-45) mmHg ABG pO2 (83-108) mmHg ABG HCO3 (21-25) mmol/L ABG Total CO2 (19-24) mmol/L ABG O2 Saturation (94-97) % Chloride (98-107) mmol/L BUN (9-20) mg/dL Glucose (74-99) mg/dL POC Glucose (mg/dL) 113 H 133 H (75-99) mg/dL Calcium (8.4-10.2) mg/dL Magnesium (1.6-2.3) mg/dL Total Protein (6.3-8.2) g/dL Albumin (3.5-5.0) g/dL Procalcitonin (0.02-0.09) ng/mL Microbiology - Last 24 Hours (Table) 11/09/20 10:00 Gram Stain - Preliminary Bronchial Washings - Right Bronchial Washings Culture - Preliminary
[2020-11-10] MEDS: INSULIN REGULAR 100 UNIT in SODIUM CHLORIDE 0.9% 100 ML IV SCH (14:04)
[2020-11-10 14:05] LABS: Glucose,Whole Blood 142 mg/dL (75-99)
[2020-11-10 15:51] LABS: Glucose,Whole Blood 118 mg/dL (75-99)
[2020-11-10 16:20] LABS: ABG Base Excess 2.7 mmol/L; ABG HCO3 29 mmol/L (21-25); ABG Oxygen Saturation 99.1 % (94-97); ABG PCO2 62 mmHg (35-45); ABG PH 7.29 (7.35-7.45); ABG PO2 133 mmHg (83-108); ABG TCO2 31 mmol/L (19-24); Allen Test Performed? Yes
[2020-11-10 17:17] LABS: Glucose,Whole Blood 133 mg/dL (75-99)
--- NOTE | 2020-11-10 18:32 | P.PN ---
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 Currently he remains in the ICU intubated and sedated. He is on aspirin 325 mg. Also he has evidence of pneumonia secondary to Citrobacter covered with cefepime, he had low-grade fever 2-3 days ago at 100.8, been afebrile for the last 24 hours. Also he is on Solu-Medrol 40 mg for his COPD exacerbation. He is also on insulin drip Several consultants on the case He is tachypneic but blood pressure is a stable Labs reviewed and they looked unremarkable He is kept on aspirin 325 mg daily 11/09/2020 Patient is status post CABG and aortic valve replacement on 11/04. He is still on mechanical ventilation. He failed weaning trial, he underwent bronchoscopy today which showed basically patent airways with only some distal secretions were sucked out. He is still tachypneic around 26-34 Calcitonin still elevated 0.1, he has leukocytosis of 15 gait. No more fever, last fever was on 11/06 around 100. He still He remains on cefepime 2 g twice a day, Solu-Medrol 40 mg. He still on insulin drip while he is on steroids He is on aspirin 325 mg 11/10/2020 Patient remains in the ICU sedated and intubated with pulmonary/critical care team on the case. His PEEP 12 and FiO2 100% is overall doing well as is becoming hard for him to come off the ventilation. Patient is significantly tachypneic at 30 breath per minute, afebrile. He has some leukocytosis around 20 K but also he is on no drips. IV vancomycin added today. Bronchoalveolar lavage culture growing gram-negative bacilli, final results to come back. Patient also covered with cefepime Also started on amiodarone drip today. Continue with aspirin 325 mg. Continue Solu-Medrol. Objective - Vital Signs Vital signs: Vital Signs Temp 98.4 F 11/10/20 08:15 Pulse 97 11/10/20 11:30 Resp 24 11/10/20 11:30 BP 116/74 11/10/20 11:15 Pulse Ox 99 11/10/20 11:30 Intake & Output 11/09/20 11/10/20 11/10/20 18:59 06:59 18:59 Intake Total 6628.776 1914.607 1063.766 Output Total 610 792 925 Balance 829.189 507.607 138.766 Weight 96.4 kg 97.7 kg Intake: IV 260 340 520 CO/CI 20 Cefepime 2 gm In Sodium 100 100 Chloride 0.9% 100 ml @ 25 mls/hr IVPB Q12HR [facility] Rx #:[id number] Dextrose 5% in Water 100 100 ml @ 618 mls/hr IV .Q10M ONE with Amiodarone 150 mg Rx#:[id number] Lactated Ringers 1,000 ml 240 240 70 @ 50 mls/hr IV .Q20H [facility] Rx#:[id number] Vancomycin 1,500 mg In 250 Sodium Chloride 0.9% 250 ml @ 125 mls/hr IVPB Q12H [facility] Rx#:[id number] Intake, IV Titration 441.189 512.607 392.766 Amount Cefepime 2 gm In Sodium 100 Chloride 0.9% 100 ml @ 25 mls/hr IVPB Q12HR [facility] Rx #:[id number] DOPamine DRIP 800 mg In 9.818 Dextrose/Water 1 250ml. bag @ 2 MCG/KG/MIN 3.495 mls/hr IV .Q24H [facility] Rx#: [id number] Insulin Regular 100 unit 42.201 37.193 22.961 In Sodium Chloride 0.9% 100 ml @ Per Protocol IV .Q0M [facility] Rx#:[id number] Norepinephrine 4 mg In 5.816 169.805 Sodium Chloride 0.9% 250 ml @ 0.05 MCG/KG/MIN 18. 364 mls/hr IV .[id number] [facility] Rx#:[id number] fentaNYL (PF). 1,000 mcg 171.752 100 In Sodium Chloride 0.9% 80 ml @ Per Protocol IV . Q0M [facility] Rx#:[id number] propofoL 1,000 mg In 289.170 297.846 100 Empty Bag 1 bag @ Titrate IV .Q0M [facility] Rx#: [id number] Tube Feeding 738 357 151 Other 90 Output: Gastric Drainage 400 Urine 610 792 525 Other: Voiding Method Indwelling Catheter Indwelling Catheter # Bowel Movements 1 ABP, PAP, CO, CI - Last Documented Arterial Blood Pressure 144/66 Pulmonary Artery Pressure 69/37 Cardiac Output 5.2 Cardiac Index 2.6 - Exam -GENERAL: The patient is sedated and intubated HEENT: Pupils are round and equally reacting to light. EOMI. No scleral icterus. No conjunctival pallor. Normocephalic, atraumatic. No pharyngeal erythema. No thyromegaly. CARDIOVASCULAR: S1 and S2 present. No murmurs, rubs, or gallops. PULMONARY: Chest is clear to auscultation, no wheezing or crackles. ABDOMEN: Soft, nontender, nondistended, normoactive bowel sounds. No palpable organomegaly. MUSCULOSKELETAL: No joint swelling or deformity. EXTREMITIES: No cyanosis, clubbing, or pedal edema. NEUROLOGICAL: Gross neurological examination did not reveal any focal deficits. SKIN: No rashes. no petechiae. - Labs CBC & Chem 7: 11/10/20 04:47 11/10/20 04:47 Labs: Abnormal Lab Results - Last 24 Hours (Table) 11/09/20 11/09/20 11/09/20 Range/Units 04:05 13:58 16:22 WBC (3.8-10.6) k/uL RBC (4.30-5.90) m/uL Hgb (13.0-17.5) gm/dL Hct (39.0-53.0) % MCV (80.0-100.0) fL RDW (11.5-15.5) % Neutrophils # (Manual) (1.3-7.7) k/uL Lymphocytes # (Manual) (1.0-4.8) k/uL ABG pCO2 (35-45) mmHg ABG pO2 111 H (83-108) mmHg ABG HCO3 28 H (21-25) mmol/L ABG Total CO2 29 H (19-24) mmol/L ABG O2 Saturation 98.9 H (94-97) % Chloride (98-107) mmol/L BUN (9-20) mg/dL Glucose (74-99) mg/dL POC Glucose (mg/dL) 129 H (75-99) mg/dL Calcium (8.4-10.2) mg/dL Magnesium (1.6-2.3) mg/dL Total Protein (6.3-8.2) g/dL Albumin (3.5-5.0) g/dL Procalcitonin 0.18 H (0.02-0.09) ng/mL 11/09/20 11/09/20 11/09/20 Range/Units 16:34 17:55 20:50 WBC (3.8-10.6) k/uL RBC (4.30-5.90) m/uL Hgb (13.0-17.5) gm/dL Hct (39.0-53.0) % MCV (80.0-100.0) fL RDW (11.5-15.5) % Neutrophils # (Manual) (1.3-7.7) k/uL Lymphocytes # (Manual) (1.0-4.8) k/uL ABG pCO2 (35-45) mmHg ABG pO2 (83-108) mmHg ABG HCO3 (21-25) mmol/L ABG Total CO2 (19-24) mmol/L ABG O2 Saturation (94-97) % Chloride (98-107) mmol/L BUN (9-20) mg/dL Glucose (74-99) mg/dL POC Glucose (mg/dL) 134 H 139 H 139 H (75-99) mg/dL Calcium (8.4-10.2) mg/dL Magnesium (1.6-2.3) mg/dL Total Protein (6.3-8.2) g/dL Albumin (3.5-5.0) g/dL Procalcitonin (0.02-0.09) ng/mL 11/10/20 11/10/20 11/10/20 Range/Units 00:19 02:14 03:24 WBC (3.8-10.6) k/uL RBC (4.30-5.90) m/uL Hgb (13.0-17.5) gm/dL Hct (39.0-53.0) % MCV (80.0-100.0) fL RDW (11.5-15.5) % Neutrophils # (Manual) (1.3-7.7) k/uL Lymphocytes # (Manual) (1.0-4.8) k/uL ABG pCO2 (35-45) mmHg ABG pO2 (83-108) mmHg ABG HCO3 (21-25) mmol/L ABG Total CO2 (19-24) mmol/L ABG O2 Saturation (94-97) % Chloride (98-107) mmol/L BUN (9-20) mg/dL Glucose (74-99) mg/dL POC Glucose (mg/dL) 128 H 111 H 138 H (75-99) mg/dL Calcium (8.4-10.2) mg/dL Magnesium (1.6-2.3) mg/dL Total Protein (6.3-8.2) g/dL Albumin (3.5-5.0) g/dL Procalcitonin (0.02-0.09) ng/mL 11/10/20 11/10/20 11/10/20 Range/Units 04:47 04:47 05:07 WBC 20.7 H (3.8-10.6) k/uL RBC 2.34 L (4.30-5.90) m/uL Hgb 7.7 L (13.0-17.5) gm/dL Hct 23.5 L (39.0-53.0) % MCV 100.4 H (80.0-100.0) fL RDW 18.6 H (11.5-15.5) % Neutrophils # (Manual) 20.08 H (1.3-7.7) k/uL Lymphocytes # (Manual) 0.21 L (1.0-4.8) k/uL ABG pCO2 53 H (35-45) mmHg ABG pO2 72 L (83-108) mmHg ABG HCO3 29 H (21-25) mmol/L ABG Total CO2 31 H (19-24) mmol/L ABG O2 Saturation 93.7 L (94-97) % Chloride 111 H (98-107) mmol/L BUN 36 H (9-20) mg/dL Glucose 138 H (74-99) mg/dL POC Glucose (mg/dL) (75-99) mg/dL Calcium 8.2 L (8.4-10.2) mg/dL Magnesium 2.5 H (1.6-2.3) mg/dL Total Protein 5.1 L (6.3-8.2) g/dL Albumin 2.7 L (3.5-5.0) g/dL Procalcitonin (0.02-0.09) ng/mL 11/10/20 11/10/20 Range/Units 09:07 11:09 WBC (3.8-10.6) k/uL RBC (4.30-5.90) m/uL Hgb (13.0-17.5) gm/dL Hct (39.0-53.0) % MCV (80.0-100.0) fL RDW (11.5-15.5) % Neutrophils # (Manual) (1.3-7.7) k/uL Lymphocytes # (Manual) (1.0-4.8) k/uL ABG pCO2 (35-45) mmHg ABG pO2 (83-108) mmHg ABG HCO3 (21-25) mmol/L ABG Total CO2 (19-24) mmol/L ABG O2 Saturation (94-97) % Chloride (98-107) mmol/L BUN (9-20) mg/dL Glucose (74-99) mg/dL POC Glucose (mg/dL) 113 H 133 H (75-99) mg/dL Calcium (8.4-10.2) mg/dL Magnesium (1.6-2.3) mg/dL Total Protein (6.3-8.2) g/dL Albumin (3.5-5.0) g/dL Procalcitonin (0.02-0.09) ng/mL Microbiology - Last 24 Hours (Table) 11/09/20 10:00 Gram Stain - Preliminary Bronchial Washings - Right Bronchial Washings Culture - Preliminary Assessment and Plan Assessment: Severe triple coronary artery disease and aortic stenosis, status post CABG and aortic valve replacement on 11/04 Acute COPD exacerbation Pneumonia secondary to Citrobacter. Status post post-bronchoscopy and bronchoalveolar lavage on 11/09 Right upper lung nodule highly suspicious for malignancy per PET scan Possible diabetes mellitus Plan: This is a pleasant 75 years old male status post CABG and aortic valve replacement. Also with pneumonia and COPD Continue with cefepime and Solu-Medrol Pulmonary/critical care team will help with vent management Cardiothoracic surgery primary team on the case Division Operations Specialist team on the case Continue with aspirin Continue with insulin and monitor her glucose Labs and medication were reviewed.. Continue same treatment. Continue with symptomatic treatment. Resume home medication. Monitor lytes and vitals. DVT and GI prophylaxis. Further recommendationsas per clinical course of the patient DVT prophylaxis: Subcutaneous heparin GI Prophylaxis: Ppi Prognosis is guarded Thank you for consulting us
[2020-11-10 18:33] LABS: ABG Base Excess 1.3 mmol/L; ABG HCO3 28 mmol/L (21-25); ABG PCO2 62 mmHg (35-45); ABG PH 7.27 (7.35-7.45); ABG PO2 84 mmHg (83-108); ABG TCO2 30 mmol/L (19-24); Allen Test Performed? Yes
[2020-11-10 19:06] LABS: Glucose,Whole Blood 136 mg/dL (75-99)
[2020-11-10 19:25] LABS: Allen Test Performed? Yes
[2020-11-10 19:27] LABS: ABG Base Excess 2.5 mmol/L; ABG HCO3 29 mmol/L (21-25); ABG Oxygen Saturation 94.5 % (94-97); ABG PCO2 60 mmHg (35-45); ABG PO2 75 mmHg (83-108); ABG TCO2 31 mmol/L (19-24)
[2020-11-10] MEDS: ATORVASTATIN 80 MG TAB PO SCH (20:54)
[2020-11-10] MEDS: SENNOSIDES-DOCUSATE SODIUM 1 EACH TAB PO SCH (20:54)
[2020-11-10] MEDS: LACTATED RINGERS 1,000 ML IV SCH (20:55)
[2020-11-10] MEDS: EZETIMIBE 10 MG TAB PO SCH (21:00)
[2020-11-10 22:08] LABS: Glucose,Whole Blood 147 mg/dL (75-99)
[2020-11-10 23:37] LABS: Glucose,Whole Blood 137 mg/dL (75-99)
[2020-11-11] MEDS: DOPamine DRIP 800 MG in DEXTROSE/WATER 1 250ML.BAG IV SCH (01:24)
[2020-11-11 01:36] LABS: Glucose,Whole Blood 132 mg/dL (75-99)
[2020-11-11] MEDS: fentaNYL (PF). 1,000 MCG in SODIUM CHLORIDE 0.9% 80 ML IV SCH (02:02)
[2020-11-11 04:09] LABS: Glucose,Whole Blood 128 mg/dL (75-99)
[2020-11-11 04:43] LABS: ABG Base Excess 3.9 mmol/L; ABG HCO3 29 mmol/L (21-25); ABG Oxygen Saturation 95.4 % (94-97); ABG PCO2 47 mmHg (35-45); ABG PO2 71 mmHg (83-108); ABG TCO2 30 mmol/L (19-24); Allen Test Performed? Yes
[2020-11-11 04:59] LABS: Anisocytosis Slight; HCT 22.4 % (39.0-53.0); HGB 7.4 gm/dL (13.0-17.5); Hypochromasia Slight; MCH 33.3 pg (25.0-35.0); MCHC 32.9 g/dL (31.0-37.0); Macrocytosis Moderate; Platelet Count 208 k/uL (150-450); RBC 2.21 m/uL (4.30-5.90); RDW 18.4 % (11.5-15.5); WBC 14.5 k/uL (3.8-10.6)
[2020-11-11 05:08] LABS: ALT 14 U/L (4-49); AST 27 U/L (17-59); African American GFR (CKD) >90 (>60 ml/min/1.73 sqM); Albumin 2.5 g/dL (3.5-5.0); Alkaline Phosphatase 64 U/L (38-126); Anion Gap 6 mmol/L; Blood Urea Nitrogen 36 mg/dL (9-20); Calcium 8.3 mg/dL (8.4-10.2); Carbon Dioxide 28 mmol/L (22-30); Chloride 112 mmol/L (98-107); Glucose 120 mg/dL (74-99); Non-African American GFR(CKD) 85 (>60 ml/min/1.73 sqM); Potassium 4.9 mmol/L (3.5-5.1); Sodium 146 mmol/L (137-145); Total Bilirubin 0.7 mg/dL (0.2-1.3); Total Protein 4.9 g/dL (6.3-8.2)
[2020-11-11 05:54] LABS: Anisocytosis (M) Present; Lymphocytes # (M) 0.15 k/uL (1.0-4.8); Monocytes # (M) 0.87 k/uL (0-1.0); Neutrophils # (M) 13.49 k/uL (1.3-7.7); Neutrophils % (M) 93 %; Nucleated Red Blood Cells 0 /100 WBC (0-0); Polychromasia Present; Total Cells Counted 100
[2020-11-11] MEDS: fentaNYL (PF) 2,500 MCG in SODIUM CHLORIDE 0.9% 200 ML IV SCH ×2 (06:10→17:58)
[2020-11-11] MEDS: METOCLOPRAMIDE 5 MG/ML 2 ML VIAL IVP SCH ×3 (06:11→15:22)
[2020-11-11 06:27] LABS: Glucose,Whole Blood 125 mg/dL (75-99)
--- NOTE | 2020-11-11 07:16 | XR ---
EXAMINATION TYPE: XR chest 1V portable DATE OF EXAM: 11/11/2020 COMPARISON: Chest x-ray 11/10/2020 HISTORY: Postop cardiac surgery TECHNIQUE: Single frontal view of the chest is obtained. FINDINGS: Lung bases are not entirely included on exam. Endotracheal tube is superimposed over the t maribel air column thought to be in appropriate position. Patient is post median sternotomy. Cardiac mediastinal silhouette is within normal limits. There is a left-sided PICC line, distal tip is overly ing the region of the cavoatrial junction. NG tube is in place, distal tip not included on exam. Ther e are overlying artifacts. No evident pneumothorax. Bibasilar increased attenuation persists, the int erstitium is increased. There may be some improvement in aeration in the upper lobes. IMPRESSION: Some possible improvement in volume status, aeration, difficult to exclude effusion, pne umonia versus edema.
[2020-11-11] MEDS: IPRATROPIUM-ALBUTEROL 3 ML NEB INHALATION SCH ×4 (07:34→19:45)
[2020-11-11 08:34] LABS: Glucose,Whole Blood 117 mg/dL (75-99)
[2020-11-11] MEDS: METOPROLOL TARTRATE 25 MG TAB PO SCH ×2 (08:37→20:38)
[2020-11-11] MEDS: ASPIRIN 325 MG TAB PO SCH (08:37)
[2020-11-11] MEDS: methylPREDNISolone SOD SUCCI 40 MG/ML 1 ML VIAL IV SCH ×2 (08:38→15:21)
[2020-11-11] MEDS: HEPARIN SODIUM,PORCINE/PF 5,000 UNIT/0.5 ML SYRINGE SQ SCH ×2 (08:38→15:21)
[2020-11-11] MEDS: ASCORBIC ACID 500 MG TAB PO SCH (08:38)
[2020-11-11] MEDS: AMIODARONE 200 MG TAB OG-TUBE SCH ×2 (08:38→20:33)
[2020-11-11] MEDS: MULTIVITAMINS, THERA 1 EACH TAB PO SCH (08:38)
[2020-11-11] MEDS: PANTOPRAZOLE 40 MG/10 ML VIAL IVP SCH (08:38)
[2020-11-11] MEDS: CEFEPIME 2 GM in SODIUM CHLORIDE 0.9% 100 ML IVPB SCH (08:38)
[2020-11-11] MEDS: CHLORHEXIDINE GLUCONATE 15 ML CUP MUCOUS MEM SCH ×2 (08:38→20:33)
[2020-11-11] MEDS: VANCOMYCIN 1,500 MG in SODIUM CHLORIDE 0.9% 250 ML IVPB SCH (08:42)
[2020-11-11] MEDS ORDERED: FUROSEMIDE 10 MG/ML 2 ML VIAL IV ONE (09:48)
[2020-11-11 10:10] LABS: Glucose,Whole Blood 120 mg/dL (75-99)
[2020-11-11] MEDS ORDERED: SODIUM BICARB 8.4% 50 ML SYR (1 MEQ/ML) ONE (10:28)
[2020-11-11] MEDS: FERROUS SULFATE ORAL ELIXIR 300 MG/5 ML CUP OG-TUBE SCH ×2 (11:05→21:27)
[2020-11-11] MEDS ORDERED: CISATRACURIUM 2 MG/ML 5 ML VIAL IV ONE (11:19)
[2020-11-11 11:38] LABS: Glucose,Whole Blood 120 mg/dL (75-99)
--- NOTE | 2020-11-11 11:40 | P.PN ---
Subjective Progress Note Date: 11/11/20 Principal diagnosis: Severe triple vessel coronary artery disease, moderate to severe aortic valve stenosis, pulmonary hypertension and right upper lobe pulmonary nodule, suspicious for malignancy based on PET scan findings. Past medical history significant for hypertension, hyperlipidemia, right subclavian artery stenosis, coronary artery disease with previous stenting of the right coronary artery, history of right upper lobe pneumonia, COPD with preoperative FEV1 showing a predicted value of 66%, DLCO 18% of predicted value and remote history of nicotine dependence in which he quit smoking around 25 years ago. POD #7 aortic valve replacement with a 27 mm [place] Inspiris bioprosthetic aortic valve, coronary artery bypass grafting 3 with a reverse saphenous vein graft off the aorta to the circumflex coronary artery, the left anterior descending coronary artery and the posterior descending coronary artery with bilateral lower extremity greater saphenous vein endoscopic harvesting. Clip ligation of the left atrial appendage with a 35 mm Atriclip, intraoperative transesophageal echocardiogram and graft flow measurement using the [employer] system. Postoperative acute blood loss anemia and thrombocytopenia, expected given hemodilution and cardiopulmonary bypass. Prolonged mechanical ventilation, secondary acute hypoxic respiratory failure with ongoing hypoxemia, preoperative FEV1 66% of predicted value and DLCO 18% of predicted value. Paroxysmal atrial fibrillation, a known common occurrence after cardiac surgery Postoperative pneumonia with sputum culture positive for Citrobacter freundii, unexpected The patient remains laying in the intensive care unit on sedation with propofol and fentanyl with mechanical ventilation. Remains afebrile, white blood cell count 14.5 this morning, was 20.7 yesterday. Remains on IV Solu-Medrol, cefepime, vancomycin added. Did have atrial fibrillation yesterday and was given IV bolus amiodarone, converted back into sinus rhythm, remains on amiodarone and Lopressor down OG tube. He did have a very brief episode of atrial fibrillation this morning which only lasted for a matter of minutes with his heart rate in the 90s, currently back in sinus rhythm with heart rate in the low 60s but he is being paced at 70 bpm to support blood pressure. Left brachial PICC line, left radial arterial line remain present. Currently receiving tube feeding at its 20 mL per hour, had residual of 400 mL yesterday morning and tube feeding was shut off for short period time and then restarted at trickle feedings. He was given Lasix yesterday by cardiology. He was sent yesterday for CTA of the chest to rule out PE, however he became hypoxic, hypotensive, and bradycardic and subsequently the CT was aborted. Bronchial washings from November 09 bronchoscopy preliminarily still reporting gram-negative bacilli, cytology reports abundant acute inflammation with scattered macrophages and no diagnostically malignant cells. Objective - Vital Signs Vital signs: Vital Signs Temp 97.6 F 11/11/20 04:00 Pulse 78 11/11/20 07:51 Resp 29 H 11/11/20 07:00 BP 79/60 11/10/20 19:00 Pulse Ox 93 L 11/11/20 07:00 Intake & Output 11/10/20 11/11/20 11/11/20 18:59 06:59 18:59 Intake Total 2106.014 2060.646 1.996 Output Total 1315 914 Balance 345.871 4886.646 1.996 Weight 97.1 kg Intake: IV 970 1036 Cefepime 2 gm In Sodium 100 100 Chloride 0.9% 100 ml @ 25 mls/hr IVPB Q12HR [facility] Rx #:[id number] Dextrose 5% in Water 100 200 ml @ 618 mls/hr IV .Q10M ONE with Amiodarone 150 mg Rx#:[id number] Lactated Ringers 1,000 ml 420 650 @ 20 mls/hr IV .Q24H [facility] Rx#:[id number] Pressure Bag 36 Vancomycin 1,500 mg In 250 250 Sodium Chloride 0.9% 250 ml @ 125 mls/hr IVPB Q12H [facility] Rx#:[id number] Intake, IV Titration 955.014 724.646 1.996 Amount Insulin Regular 100 unit 40.031 20.739 In Sodium Chloride 0.9% 100 ml @ Per Protocol IV .Q0M [facility] Rx#:[id number] Norepinephrine 4 mg In 423.805 123.532 Sodium Chloride 0.9% 250 ml @ 0.05 MCG/KG/MIN 18. 364 mls/hr IV .[id number] [facility] Rx#:[id number] fentaNYL (PF). 1,000 mcg 291.178 283.561 In Sodium Chloride 0.9% 80 ml @ Per Protocol IV . Q0M [facility] Rx#:[id number] propofoL 1,000 mg In 200 296.814 1.996 Empty Bag 1 bag @ Titrate IV .Q0M [facility] Rx#: [id number] Tube Feeding 181 170 Other 130 Output: Gastric Drainage 400 Urine 915 914 Other: Voiding Method Indwelling Catheter Indwelling Catheter ABP, PAP, CO, CI - Last Documented Arterial Blood Pressure 147/44 Pulmonary Artery Pressure 69/37 Cardiac Output 5.2 Cardiac Index 2.6 - Exam CONSTITUTIONAL: Appears comfortable on mechanical ventilation, no acute distress RESPIRATORY: Lungs sounds diminished bilaterally with coarse breath sounds in the bases. Respirations even, nonlabored. Currently on assist control mode with FiO2 60%, PEEP 14, tidal volume 450, respiratory rate 28. 8.5 ET tube present, 23 at the lip CARDIOVASCULAR: S1, S2 present. Regular rate and rhythm, sinus rhythm on telemetry in the 60s underlying with atrially paced rate at 70 bpm. Sternum stable. Palpable peripheral pulses bilaterally. Generalized edema present. Heart hugger, antiembolism stockings, SCDs present. GASTROINTESTINAL: Abdomen soft, nontender, nondistended. Active bowel sounds present 4 quadrants. Tube feeding infusing at 20 mL per hour. Positive bowel movement 11/09 GENITOURINARY: Espinal present draining clear, yellow urine. Output overnight 60-100 mL per hour, 1789 mL in the last 24 hours INTEGUMENTARY: Skin is warm and dry. Anterior chest incision well approximated and covered with dry intact dressing. Left lower extremity EVH site and left radial artery harvest site well approximated without redness or drainage PSYCHIATRIC: Sedated on mechanical ventilation. Per nursing off sedation patient will raise his eyebrows but does not follow much other commands INVASIVE LINES AND TUBES: A/V epicardial pacemaker wires present, AAI mode with rate 70 bpm. Left brachial PICC line, left radial arterial line present. - Allied health notes Allied health notes reviewed: nursing - Labs CBC & Chem 7: 11/11/20 04:05 11/11/20 04:05 Labs: Abnormal Lab Results - Last 24 Hours (Table) 11/10/20 11/10/20 11/10/20 Range/Units 04:47 09:07 11:09 WBC (3.8-10.6) k/uL RBC (4.30-5.90) m/uL Hgb (13.0-17.5) gm/dL Hct (39.0-53.0) % MCV (80.0-100.0) fL RDW (11.5-15.5) % Neutrophils # (Manual) 20.08 H (1.3-7.7) k/uL Lymphocytes # (Manual) 0.21 L (1.0-4.8) k/uL ABG pH (7.35-7.45) ABG pCO2 (35-45) mmHg ABG pO2 (83-108) mmHg ABG HCO3 (21-25) mmol/L ABG Total CO2 (19-24) mmol/L ABG O2 Saturation (94-97) % Sodium (137-145) mmol/L Chloride (98-107) mmol/L BUN (9-20) mg/dL Glucose (74-99) mg/dL POC Glucose (mg/dL) 113 H 133 H (75-99) mg/dL Calcium (8.4-10.2) mg/dL Total Protein (6.3-8.2) g/dL Albumin (3.5-5.0) g/dL 11/10/20 11/10/20 11/10/20 Range/Units 14:04 15:50 16:18 WBC (3.8-10.6) k/uL RBC (4.30-5.90) m/uL Hgb (13.0-17.5) gm/dL Hct (39.0-53.0) % MCV (80.0-100.0) fL RDW (11.5-15.5) % Neutrophils # (Manual) (1.3-7.7) k/uL Lymphocytes # (Manual) (1.0-4.8) k/uL ABG pH 7.29 L (7.35-7.45) ABG pCO2 62 H (35-45) mmHg ABG pO2 133 H (83-108) mmHg ABG HCO3 29 H (21-25) mmol/L ABG Total CO2 31 H (19-24) mmol/L ABG O2 Saturation 99.1 H (94-97) % Sodium (137-145) mmol/L Chloride (98-107) mmol/L BUN (9-20) mg/dL Glucose (74-99) mg/dL POC Glucose (mg/dL) 142 H 118 H (75-99) mg/dL Calcium (8.4-10.2) mg/dL Total Protein (6.3-8.2) g/dL Albumin (3.5-5.0) g/dL 11/10/20 11/10/20 11/10/20 Range/Units 17:16 18:31 19:04 WBC (3.8-10.6) k/uL RBC (4.30-5.90) m/uL Hgb (13.0-17.5) gm/dL Hct (39.0-53.0) % MCV (80.0-100.0) fL RDW (11.5-15.5) % Neutrophils # (Manual) (1.3-7.7) k/uL Lymphocytes # (Manual) (1.0-4.8) k/uL ABG pH 7.27 L (7.35-7.45) ABG pCO2 62 H (35-45) mmHg ABG pO2 (83-108) mmHg ABG HCO3 28 H (21-25) mmol/L ABG Total CO2 30 H (19-24) mmol/L ABG O2 Saturation (94-97) % Sodium (137-145) mmol/L Chloride (98-107) mmol/L BUN (9-20) mg/dL Glucose (74-99) mg/dL POC Glucose (mg/dL) 133 H 136 H (75-99) mg/dL Calcium (8.4-10.2) mg/dL Total Protein (6.3-8.2) g/dL Albumin (3.5-5.0) g/dL 11/10/20 11/10/20 11/10/20 Range/Units 19:23 22:06 23:35 WBC (3.8-10.6) k/uL RBC (4.30-5.90) m/uL Hgb (13.0-17.5) gm/dL Hct (39.0-53.0) % MCV (80.0-100.0) fL RDW (11.5-15.5) % Neutrophils # (Manual) (1.3-7.7) k/uL Lymphocytes # (Manual) (1.0-4.8) k/uL ABG pH 7.30 L (7.35-7.45) ABG pCO2 60 H (35-45) mmHg ABG pO2 75 L (83-108) mmHg ABG HCO3 29 H (21-25) mmol/L ABG Total CO2 31 H (19-24) mmol/L ABG O2 Saturation (94-97) % Sodium (137-145) mmol/L Chloride (98-107) mmol/L BUN (9-20) mg/dL Glucose (74-99) mg/dL POC Glucose (mg/dL) 147 H 137 H (75-99) mg/dL Calcium (8.4-10.2) mg/dL Total Protein (6.3-8.2) g/dL Albumin (3.5-5.0) g/dL 11/11/20 11/11/20 11/11/20 Range/Units 01:34 04:05 04:05 WBC 14.5 H (3.8-10.6) k/uL RBC 2.21 L (4.30-5.90) m/uL Hgb 7.4 L (13.0-17.5) gm/dL Hct 22.4 L (39.0-53.0) % MCV 101.0 H (80.0-100.0) fL RDW 18.4 H (11.5-15.5) % Neutrophils # (Manual) 13.49 H (1.3-7.7) k/uL Lymphocytes # (Manual) 0.15 L (1.0-4.8) k/uL ABG pH (7.35-7.45) ABG pCO2 (35-45) mmHg ABG pO2 (83-108) mmHg ABG HCO3 (21-25) mmol/L ABG Total CO2 (19-24) mmol/L ABG O2 Saturation (94-97) % Sodium 146 H (137-145) mmol/L Chloride 112 H (98-107) mmol/L BUN 36 H (9-20) mg/dL Glucose 120 H (74-99) mg/dL POC Glucose (mg/dL) 132 H (75-99) mg/dL Calcium 8.3 L (8.4-10.2) mg/dL Total Protein 4.9 L (6.3-8.2) g/dL Albumin 2.5 L (3.5-5.0) g/dL 11/11/20 11/11/20 11/11/20 Range/Units 04:06 04:40 06:25 WBC (3.8-10.6) k/uL RBC (4.30-5.90) m/uL Hgb (13.0-17.5) gm/dL Hct (39.0-53.0) % MCV (80.0-100.0) fL RDW (11.5-15.5) % Neutrophils # (Manual) (1.3-7.7) k/uL Lymphocytes # (Manual) (1.0-4.8) k/uL ABG pH (7.35-7.45) ABG pCO2 47 H (35-45) mmHg ABG pO2 71 L (83-108) mmHg ABG HCO3 29 H (21-25) mmol/L ABG Total CO2 30 H (19-24) mmol/L ABG O2 Saturation (94-97) % Sodium (137-145) mmol/L Chloride (98-107) mmol/L BUN (9-20) mg/dL Glucose (74-99) mg/dL POC Glucose (mg/dL) 128 H 125 H (75-99) mg/dL Calcium (8.4-10.2) mg/dL Total Protein (6.3-8.2) g/dL Albumin (3.5-5.0) g/dL Microbiology - Last 24 Hours (Table) 11/09/20 10:00 Gram Stain - Preliminary Bronchial Washings - Right Bronchial Washings Culture - Preliminary Gram Neg Bacilli - Imaging and Cardiology Chest x-ray: report reviewed, image reviewed Assessment and Plan Assessment: 1. Severe triple-vessel coronary artery disease, status post three-vessel coronary artery bypass grafting surgery 2. Moderate to severe aortic valve stenosis, status post aortic valve replacement with a #27 mm [place] Inspiris bioprosthetic aortic valve 3. Pulmonary hypertension 4. Known right upper lobe pulmonary nodule, suspicious for malignancy based on PET scan findings 5. COPD with a preoperative FEV1 66% of predicted value and a DLCO 18% of predicted value 6. Known right subclavian artery stenosis 7. History of Hypertension 8. Hyperlipidemia, treated 9. History of coronary artery disease with previous stenting of the right coronary artery 10. 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 Remote history of nicotine dependence, quit smoking over 25 years ago 12. Postoperative anemia and thrombocytopenia, expected given hemodilution and cardiopulmonary bypass 13. Prolonged mechanical ventilator support, secondary to acute respiratory failure with ongoing hypoxemia 14. Paroxysmal atrial fibrillation, a known common occurrence after cardiac surgery, currently in normal sinus rhythm 15. Pneumonia, sputum culture positive for Citrobacter freundii Plan: 1. Continue to optimize medical management with aspirin, statin, zetia, and beta paul. Continue amiodarone per OG tube twice a day for atrial fib ablation prophylaxis. 2. Continue cefepime, vancomycin, IV steroids per pulmonology recommendations. Blood cultures ordered, await results 3. Patient may need tracheostomy and PEG tube placement early next week. Will discuss with family 4. Continue to monitor daily labs and chest x-rays. Electrolyte replacement per protocol. Will give 5. Pain control with current medication regimen. Currently on IV continuous sentinel mg IVP lasix 6. GI/DVT prophylaxis 7. Insulin management per primary care service. The patient is not diabetic with preoperative hemoglobin A1c 5.4%, needs tight blood sugar control to promote sternal union and prevent infection. 8. Keep left radial arterial line in place. 9. Continue Espinal catheter for another for strict accurate intake and output. Continue to monitor daily weights. 10. Continue atrial and ventricular pacemaker wires with pacemaker generator to a AAI rate of 70 BPM. 11. Continue tube feedings 12. More recommendations to follow Time with Patient: Greater than 30
--- NOTE | 2020-11-11 12:46 | PN ---
PROGRESS NOTE FOLLOW-UP NOTE: Henrique is a 75-year-old gentleman who has severe aortic stenosis and underwent aortic valve replacement with a bioprosthetic valve. He has coronary artery disease, status post bypass surgery. He has postoperative respiratory failure, currently intubated on vent. Yesterday the patient went down for a CT scan of the chest, developed hypoxia, hypotension and bradycardia transiently, and they could not do the CT scan. Since yesterday patient has had intermittent episodes of atrial fibrillation. He is currently on amiodarone 200 b.i.d. His chest x-ray shows bilateral interstitial infiltrate which seems to be getting progressively worse while he is putting out urine in response to Lasix. His chest x-ray appearance is not changing. Repeat echocardiogram showed preserved LV function. On exam this morning he remains in sinus rhythm with a heart rate of 78 beats per minute. Blood pressure is 96/60. He was on pressors that have been stopped. Chest exam reveals diminished air entry bilaterally. Heart exam reveals first and second heart sounds. No gallop. Abdomen is soft. Examination of extremities did not reveal any edema. Peripheral pulses are felt. Labs show a hemoglobin of 7.4, platelet count of 208, potassium is 4.9, creatinine is 0.87. ASSESSMENT: 1. Coronary artery disease, status post coronary artery bypass grafting. 2. Aortic stenosis, status post aortic valve replacement. 3. Vent-requiring respiratory failure, probably from ARDS. The patient has already had bronchoscopy and his chest x-ray shows worsening infiltrate. 4. Paroxysmal atrial fibrillation. PLAN: I will continue the patient on Lopressor, increase the dose of amiodarone. Prognosis is guarded. MMODL / IJN: [id number] /
[2020-11-11 14:34] LABS: Glucose,Whole Blood 118 mg/dL (75-99)
[2020-11-11] MEDS: NOREPINEPHRINE 4 MG in SODIUM CHLORIDE 0.9% 250 ML IV SCH (15:13)
[2020-11-11] MEDS: MEROPENEM 1 GM in SODIUM CHLORIDE 0.9% 100 ML IVPB SCH (15:21)
[2020-11-11] MEDS ORDERED: DEXTROSE 5% IN WATER 100 ML with AMIODARONE 150 MG IV ONE (17:20)
--- NOTE | 2020-11-11 17:33 | P.PN ---
Subjective Progress Note Date: 11/11/20 This is a 75-year-old male patient, underwent an aortic valve replacement with a bioprosthetic aortic valve and three-vessel bypass surgery with vein grafts and the patient is currently postoperative in intensive care unit. The patient is known to have coronary artery disease. He has undergone previous coronary intervention stenting of an 80% RCA lesion. He was symptomatic and further investigation revealed triple-vessel disease and for that reason he was taken to the operating room. He is also moderately severe aortic stenosis. Currently is sedated on propofol which is running at 25 mg/kg per minute. Is quite sedated on a mechanical ventilator. His blood gases showed a respiratory acidosis with a pH of 7.136 and a pCO2 of 73 and pO2 of 71. This was an assist-control mode at the rate of 14 with a tidal volume of 450 and FiO2 of 1 and a PEEP of 5. Since then, the PEEP has been increased up to 8, and his respiratory rate is up to 24. Current pulse ox on the monitor that 90%.. The patient has 2 mediastinal chest tubes and 1 pleural chest tube. Output from mediastinal chest tube has been around 450 mL and output from the left pleural chest tube is been around 130 mL since the patient up from the operating room. The patient is hemodynamically supported with Primacor at 0.25 mcg/kg per minute and the patient is also on nitroglycerin drip at 25 g 5 minutes. Patient has a cardiac index of 2.3. Pulmonary artery pressures of 61/31. He is on insulin drip running at 1.5 units an hour. He has an adequate urine output. Chest x-ray postop showed adequate expansion of both lungs. No this of pneumothorax. ET tube is in good location. [place] remains in a good location. The patient is an OG tube and 2 mediastinal and 1 pleural chest tube on of the mandible location there is no evidence of any pneumothorax. Cardiac rhythm is sinus. 11/05/2020, the patient remains on a mechanical ventilator. I was unable to wean him yesterday because of his limited oxygenation. Overnight, the patient was kept on a PEEP of 8 and his FiO2 is down to 90% and he has a tidal volume of 450 with a rate of 24. His peak airway pressure this morning is at 24. The morning blood gases showed a pH of 7.44 with a pCO2 of 41 and pO2 of 65. Based on that, I increased the PEEP up to 10 and 30. Blood gases showed a pH of 7.45 with a pCO2 of 40 and pO2 of 92. His FiO2 subsequently was found to 60%. This current pulse ox is 93%. He remains sedated with propofol and he is currently on 20 mcg/kg per minute and is well rested for now. He has 2 mediastinal chest tubes and a left pleural chest tube. Output from the mediastinal chest tube has been 10-20 mL's an hour and from the pleural chest tube is in order of 10-20 mL an hour. The patient's is hemodynamically stable. He is off milrinone for now. Cardiac index is in order of 2.4 with an output of 4.8. There has been impr ovement in the pulmonary artery pressures which is dropped down to 43/25. His CVP is currently at 8. His morning hemoglobin was at 7.5 and the patient was given a unit of packed RBC. He has a RHINA drain in his left lower extremity, output is bloody and minimal at this point in time. His cardiac rhythm is sinus. He is on an insulin drip running at 1.5 units an hour. He is off the nitroglycerin drip. He was given IV Solu Medrol yesterday regarding COPD and some increased bronchospasm and wheeze. He is also on bronchodilators. Chest x-ray from today shows adequate expansion of both lungs. There is a right upper lobe pulmonary nodule that was evident on the previous PET scan. Chronic no dularity and scarring in the left upper lobe also. No sizable pneumothorax. Minimal atelectatic changes and effusion the lung bases. Mediastinal chest tubes and left pleural chest tube of been in good location. Count is up from 82 down to 67. Also is following some simple commands and he can be aroused out of his sedation upon stimulation. 11/06/2020 him I'm seeing this patient for a follow-up. The patient remains intubated. We had some issues with his oxygenation and for that reason his extubation has been delayed. In summary, the patient remains on a mechanical ventilator. This morning he is an assist-control mode at the rate of 24 with a tidal volume of 450 and FiO2 of 60% with a PEEP of 12. Blood gases from today shows a pH of 7.46 orally 6 with a pCO2 of 38 and pO2 of 75. Chest x-ray showing some limited interstitial edema/pulmonary edema and the patient would benefit from some diuretics. His coronary artery pressures have been lower postop and is currently at the pressure of 51/26. CVP is at 7. Cardiac output is 5.3 with an index of 2.7. He is off milrinone. Is off the nitroglycerin drip. He is still on insulin drip at 1.5 units an hour. The output from the mediastinal tube has been 300 over the past 24 hours and output from the left pleural chest tube is 200 mL over the past 24 hours. Output remains somewhat bloody. No evidence of any air leak. No evidence of any pneumothorax on his chest x-ray. He remains sedated with propofol which is running at 30 mg/kg/m. He did have some loose liquidy bloody rest of the secretions which is being suctioned out of his orotracheal tube. Otherwise, his cardiac rhythm remains sinus. Occasional junctional rhythm was also noted. RHINA drain from his left lower extremity has been removed. On today's evaluation on 11/07/2020 patient is seen in the intensive care unit, sedated and intubated, on assist-control mode of ventilation, with a rate of 24, M is 450, FiO2 of 60% and PEEP of 12. This morning his blood gases showed pO2 of 76, pCO2 of 38, and pH is 7.46, today's chest x-ray has been reviewed showing no evidence of pneumothorax, mild scattered ulnar edema, and left lower lobe atelectasis. Patient received a dose of IV Lasix yesterday, however he is still in +200 mL fluid balance over the last 24 hours, he was given an additional dose of IV Lasix this morning per CT surgery. Yesterday an attempt was made to wean down FiO2 however patient's FiO2 down to 50%, however follow-up blood gas showed severe worsening of oxygenation, and pO2 of 46%. His PEEP was increased to 12, and FiO2 at 60%. In addition patient went into A. fib with RVR last night, he was started on amiodarone infusion which is currently infusing at 0.5 mg/m. He is on Diprivan at 40 mics per kilo per minute, lactated Ringer's at 50 ML per hour. Insulin at 3 units per hour. Currently patient remains in A. fib with a better controlled rate at 73 BPM, blood pressure is 122/54, PA pressures 61/31, CVP is 10, article output is 4.7, cardiac index is 2.4. Patient has one mediastinal and one mediastinal chest tube connected to left pleural chest tubes with minimal outputs overnight, no evidence of air leak noted. Epicardial wires are in place, grounded to the chest. Currently not on any anticoagulation, except for full dose aspirin 325 mg. Today's platelet count is 82, HIT antibodies have been sent and are pending right now, as today's blood work has been reviewed showing white blood cell, 12.7, hemoglobin is 7.9, actually lites are within normal limits, B1 is 21 creatinine 0.73. Patient did receive multip le blood products in the postoperative period, 3 units of packed red blood cells, 4 units of FFP, 1 unit of cryoprecipitate, and 1 unit of platelets. There has been no evidence of active bleeding, minimal output from the chest tubes. 11/08/2020, I'm seeing this patient for a follow-up. Unfortunately, the patient remains intubated on a mechanical ventilator and we have been able to wean this patient off the mechanical ventilator. The patient is postop day #4. His oxidation is become an ongoing issue. Unable to cut down the PEEP under 10 as the patient desaturates significantly. His chest x-ray showing some leg by the pulmonary infiltrates in the sputum is positive for Citrobacter and for that reason the patient was started on IV cefepime 2 g every 12 hours. Nevertheless, he has no leukocytosis or fever. Meanwhile, while being a mechanical ventilator, is an assist-control mode at the rate of 24 with a tidal volume of 450 and FiO2 of 70% with a PEEP of 10. Note that overnight, the patient desaturated and had to bring him up to 100% and The PEEP at 10. He was able to wean down as low as 70%. Subsequently, blood gases was done earlier this morning that showed a pH of 7.45 with a pCO2 of 40 and pO2 of 97 and this was on FiO2 of 80%. FiO2 was gradually wean down to 50% and a PEEP was brought down to 10. He was doing well and the subsequent blood gases showed a pH of 7.46 with a pCO2 of 40 and pO2 of 79. I was getting ready to wean this patient off the sedation try to assess his mental status. I dropped the PEEP down to 9 and subsequent his pulse ox dropped down to the low 80s. I to bring up the PEEP back to 10 lengthy is FiO2 back to 80%. Meanwhile, hemodynamically is doing well. His peak air pressures around 24 anesthetic pressures around 17. He is not any bronchospastic and wheezy. He is on a propofol drip running at 40 mg/kg/m. Is on lactated Ringer 20 mL's an hour. Cardiac index is at 2.5 with a output of 4.5. CVP is ranging between 4 and 6. Pulmonary artery pressures are 43/24. He is insulin drip is running at 4 units an hour. His cardiac rhythm is sinus. He did have a run of atrial fibrillation that was treated and the patient is back to normal sinus rhythm. The patient otherwise was started on enteral feeding for nutritional support and is currently on vital high protein at the rate of 40 mL an hour. Case has been discussed extensively with the cardiothoracic team. 11/09/2020, the patient is postop day #5. Remains intubated on a mechanical ventilator. Oxygenation has become an ongoing issue with the patient where we were not able to wean down his vent settings with a palpated oxygenation. Overnight, the patient was quite symptoms with a mechanical ventilator. I had to put him on a VC plus mode with tidal volume of 450, rate of 24, I time of 0.9 seconds, and currently is on a PEEP of 12 with an FiO2 of 70%. Chest x-ray showing bilateral fluffy pulmonary infiltrates consistent with pneumonia. His sputum cultures showing Citrobacter and the patient is ready covered with IV cefepime. No evidence of any pneumothorax. Left pleural chest tube will be pulled out today. Hemodynamically, the patient did have some hypotension overnight and he was given a bolus of 500 mL of fluid and currently is normotensive on no pressors. He is on a renal dose of dopamine and this was started by the cardiothoracic surgeon. The urine output is in order of 50-75 mL an hour. Pulmonary artery pressure 62/27. CVP is between 6 and 8. Cardiac output is 6.2 with an index of 3.1. Maintenance fluids are running at 20 mL an hour. Enteral feeding for nutritional support was started yesterday in the form of vital high protein and the patient is at the rate of 65 mL an hour. He is tolerating his enteral feeding for nutritional support. Cardiac rhythm is sinus. He did have a run of atrial fibrillation yesterday without a rapid ventricular control for around 5 hours. And he converted earlier this morning back to sinus. Patient is currently on propofol which is running at's an hour. The patient is adequately sedated. Is having some issues with pain. He was given oral Gilbert. Overnight he was also given Dilaudid for pain control which improved also synchrony with a mechanical ventilator. Overall condition remains critical. The patient has had difficulties in weaning off the respirator, probably due to development of a bilateral pneumonia in addition to some background COPD. Blood gases from today showed a pH of 7.4 with a pCO2 of 47 and pO2 of 64 and this was done and FiO2 of 70% with a PEEP of 12. Renal function stable at creatinine of 0.7. White cell count is up to 15.4 and the patient's hemoglobin is at 7.7. He continues to have a 6% bandemia. 11/10/2020, the patient is postop day #6 and the patient has failed to wean off the mechanical ventilator. The patient remains on assist control mode of ventilation, VC plus mode with a tidal volume of 450, FiO2 of 100% and a PEEP of 12. Morning blood gases showed a pH of 7.35 with a pCO2 53 and pO2 of 72. This was on FiO2 of 80%. The patient subsequently desaturated and had to be placed on on the percent. The peak airway pressure is currently at 27 with metastatic a pressure of 18. Remains on bronchodilators. He remains on steroids. Chest x-rays revealing bilateral pulmonary infiltrates, interstitial edema with areas of consolidation. A PICC line was also noted to be in a lace through the left upper extremity. The patient remains on IV cefepime. Chest tubes have been removed. He is sedated with propofol at the rate of 50 medical respiratory kilogram per minute. Overnight, the patient was also quite asynchronous and restless. Fentanyl was added which is currently running at 2.5 mcg/kg/h. He is also on lactated Ringer at 50 mL an hour. He is on a low dose norepinephrine infusion running at 0.03 mcg/kg per minute. Cardiac rhythm is sinus. He is receiving vital high protein boluses. It was noted that the patie nt had increased residual. The tube feeds have been On hold. Note that the patient underwent a bronchoscopy and the bronchioloalveolar lavage was also done yesterday and the results are still pending for now. The sputum analysis and culture grew Citrobacter and the patient is currently on IV cefepime. Is afebrile. His white cell count was rising and is currently at 20.7 with a stable hemoglobin of 7.7. Rest of the blood work and electrodes are all within normal limits. Sodium level is at 143. Potassium is at 4.7. The pro calcitonin level was at 0.18. 11/11/2020, the patient has postop day #7. The patient has a failed to wean off the mechanical ventilator. The patient is following coronary artery bypass surgery. He remains sedated with accommodation up of a fall and fentanyl. For now, performed is running at a dose of 50 mcg/kg per minute and fentanyl is running at 2 mcg/kg/h. This morning, the patient is quite symptoms mechanical ventilator. He is easily arousable and stimulated. He is an assist-control mode at the rate of 28 with a tidal volume of 450 and FiO2 of 60% with a PEEP of 14. Blood gas showed a pH of 7.4 with a pCO2 of 47 and pO2 of 71. The patient is hemodynamically stable on no pressors. Chest x-ray showing bilateral pulmonary infiltrates, essentially unchanged compared to yesterday. A bronchoscopy and the bronchioloalveolar lavage was done and the cultures were repeated showed initially gram-negative bacillus and later on it grew to be st enotrophomonas. The patient was being treated with IV cefepime. On today's evaluation, his white cell count is improved and is down to 14.5 with a stable hemoglobin of 7.4. His sodium level is at 146 with a chloride of 112 and the BUN of 36 with a creatinine of 0.8. The patient is in a sinus rhythm for now. He did have episodes of atrial fibrillation that was treated with IV bolus amiodarone and subsequent the patient converted. He is currently on a oral amiodarone and Lopressor through his orogastric tube. Chest tubes have been removed. The patient has a left brachial PICC line and the left radial arterial line. He is receiving enteral feeding for nutritional support at the rate of 20 mL's an hour. Lasix was given by cardiology. No other issues for now. As mentioned, he has failed to wean as the patient also has advanced COPD this was further [place] by development of bilateral pneumonia. Objective - Vital Signs Vital signs: Vital Signs Temp 98.2 F 11/11/20 08:00 Pulse 73 11/11/20 17:00 Resp 32 H 11/11/20 17:00 BP 112/53 11/11/20 15:00 Pulse Ox 89 L 11/11/20 17:00 Intake & Output 11/10/20 11/11/20 11/11/20 18:59 06:59 18:59 Intake Total 2106.014 2060.646 1384.166 Output Total 1315 914 865 Balance 365.257 7119.646 519.166 Weight 97.1 kg 97.1 kg Intake: IV 970 1036 640 Cefepime 2 gm In Sodium 100 100 100 Chloride 0.9% 100 ml @ 25 mls/hr IVPB Q12HR CINDY Rx #:[id number] Dextrose 5% in Water 100 200 ml @ 618 mls/hr IV .Q10M ONE with Amiodarone 150 mg Rx#:[id number] Lactated Ringers 1,000 ml 420 650 160 @ 20 mls/hr IV .Q24H CINDY Rx#:[id number] Meropenem 1 gm In Sodium 100 Chloride 0.9% 100 ml @ 33 .3 mls/hr IVPB Q8HR CINDY Rx#:[id number] Pressure Bag 36 30 Vancomycin 1,500 mg In 250 250 250 Sodium Chloride 0.9% 250 ml @ 125 mls/hr IVPB Q12H CINDY Rx#:[id number] Intake, IV Titration 955.014 724.646 344.166 Amount Insulin Regular 100 unit 40.031 20.739 32.758 In Sodium Chloride 0.9% 100 ml @ Per Protocol IV .Q0M CINDY Rx#:[id number] Norepinephrine 4 mg In 423.805 123.532 Sodium Chloride 0.9% 250 ml @ 0.05 MCG/KG/MIN 18. 364 mls/hr IV .[id number] CINDY Rx#:[id number] fentaNYL (PF) 2,500 mcg 209.412 In Sodium Chloride 0.9% 200 ml @ Per Protocol IV .Q0M CINDY Rx#:[id number] fentaNYL (PF). 1,000 mcg 291.178 283.561 In Sodium Chloride 0.9% 80 ml @ Per Protocol IV . Q0M CINDY Rx#:[id number] propofoL 1,000 mg In 200 296.814 101.996 Empty Bag 1 bag @ Titrate IV .Q0M CINDY Rx#: [id number] Tube Feeding 181 170 330 Other 130 70 Output: Gastric Drainage 400 Urine 915 914 865 Other: Voiding Method Indwelling Catheter Indwelling Catheter Indwelling Catheter ABP, PAP, CO, CI - Last Documented Arterial Blood Pressure 147/48 Pulmonary Artery Pressure 69/37 Cardiac Output 5.2 Cardiac Index 2.6 - Exam Gen. appearance the patient sedated, comfortable not in acute respiratory distress orogastric and orotracheal tube are both in place. The patient is quit e successful mechanical ventilator. Head exam was generally normal. There was no scleral icterus or corneal arcus. Mucous membranes were moist. Neck was supple and without jugular venous distension, thyromegaly, or carotid bruits. Carotids were easily palpable bilaterally. There was no adenopathy. Lungs sounds are equal and symmetrical bilaterally. Chest tubes have been removed. Breath sounds in general white diminished bilaterally especially in the lung bases. No wheezes. No rhonchi. Cardiac exam revealed the PMI to be normally situated and sized. The rhythm was regular and no extrasystoles were noted during several minutes of auscultation. The first and second heart sounds were normal and physiologic splitting of the second heart sound was noted. There were no murmurs, rubs, clicks, or gallops. Sternum stable clean and intact. Abdominal exam revealed normal bowel sounds. The abdomen was soft, non-tender, and without masses, organomegaly, or appreciable enlargement of the abdominal aorta. Extremities. Pulses are equal and symmetrical diminished. Extremities are cold. No cyanosis or clubbing. Surgical wound site is dry clean and intact. The patient has a left brachial PICC line in the left radial arterial line. Neurologically sedated, pupils are equal and reactive to light. Patient is currently on a combination of fentanyl and propofol or for sedation. - Labs CBC & Chem 7: 11/11/20 04:05 11/11/20 04:05 Labs: Abnormal Lab Results - Last 24 Hours (Table) 11/10/20 11/10/20 11/10/20 Range/Units 18:31 19:04 19:23 WBC (3.8-10.6) k/uL RBC (4.30-5.90) m/uL Hgb (13.0-17.5) gm/dL Hct (39.0-53.0) % MCV (80.0-100.0) fL RDW (11.5-15.5) % Neutrophils # (Manual) (1.3-7.7) k/uL Lymphocytes # (Manual) (1.0-4.8) k/uL ABG pH 7.27 L 7.30 L (7.35-7.45) ABG pCO2 62 H 60 H (35-45) mmHg ABG pO2 75 L (83-108) mmHg ABG HCO3 28 H 29 H (21-25) mmol/L ABG Total CO2 30 H 31 H (19-24) mmol/L Sodium (137-145) mmol/L Chloride (98-107) mmol/L BUN (9-20) mg/dL Glucose (74-99) mg/dL POC Glucose (mg/dL) 136 H (75-99) mg/dL Calcium (8.4-10.2) mg/dL Total Protein (6.3-8.2) g/dL Albumin (3.5-5.0) g/dL 11/10/20 11/10/20 11/11/20 Range/Units 22:06 23:35 01:34 WBC (3.8-10.6) k/uL RBC (4.30-5.90) m/uL Hgb (13.0-17.5) gm/dL Hct (39.0-53.0) % MCV (80.0-100.0) fL RDW (11.5-15.5) % Neutrophils # (Manual) (1.3-7.7) k/uL Lymphocytes # (Manual) (1.0-4.8) k/uL ABG pH (7.35-7.45) ABG pCO2 (35-45) mmHg ABG pO2 (83-108) mmHg ABG HCO3 (21-25) mmol/L ABG Total CO2 (19-24) mmol/L Sodium (137-145) mmol/L Chloride (98-107) mmol/L BUN (9-20) mg/dL Glucose (74-99) mg/dL POC Glucose (mg/dL) 147 H 137 H 132 H (75-99) mg/dL Calcium (8.4-10.2) mg/dL Total Protein (6.3-8.2) g/dL Albumin (3.5-5.0) g/dL 11/11/20 11/11/20 11/11/20 Range/Units 04:05 04:05 04:06 WBC 14.5 H (3.8-10.6) k/uL RBC 2.21 L (4.30-5.90) m/uL Hgb 7.4 L (13.0-17.5) gm/dL Hct 22.4 L (39.0-53.0) % MCV 101.0 H (80.0-100.0) fL RDW 18.4 H (11.5-15.5) % Neutrophils # (Manual) 13.49 H (1.3-7.7) k/uL Lymphocytes # (Manual) 0.15 L (1.0-4.8) k/uL ABG pH (7.35-7.45) ABG pCO2 (35-45) mmHg ABG pO2 (83-108) mmHg ABG HCO3 (21-25) mmol/L ABG Total CO2 (19-24) mmol/L Sodium 146 H (137-145) mmol/L Chloride 112 H (98-107) mmol/L BUN 36 H (9-20) mg/dL Glucose 120 H (74-99) mg/dL POC Glucose (mg/dL) 128 H (75-99) mg/dL Calcium 8.3 L (8.4-10.2) mg/dL Total Protein 4.9 L (6.3-8.2) g/dL Albumin 2.5 L (3.5-5.0) g/dL 11/11/20 11/11/20 11/11/20 Range/Units 04:40 06:25 08:32 WBC (3.8-10.6) k/uL RBC (4.30-5.90) m/uL Hgb (13.0-17.5) gm/dL Hct (39.0-53.0) % MCV (80.0-100.0) fL RDW (11.5-15.5) % Neutrophils # (Manual) (1.3-7.7) k/uL Lymphocytes # (Manual) (1.0-4.8) k/uL ABG pH (7.35-7.45) ABG pCO2 47 H (35-45) mmHg ABG pO2 71 L (83-108) mmHg ABG HCO3 29 H (21-25) mmol/L ABG Total CO2 30 H (19-24) mmol/L Sodium (137-145) mmol/L Chloride (98-107) mmol/L BUN (9-20) mg/dL Glucose (74-99) mg/dL POC Glucose (mg/dL) 125 H 117 H (75-99) mg/dL Calcium (8.4-10.2) mg/dL Total Protein (6.3-8.2) g/dL Albumin (3.5-5.0) g/dL 11/11/20 11/11/20 11/11/20 Range/Units 10:07 11:36 14:32 WBC (3.8-10.6) k/uL RBC (4.30-5.90) m/uL Hgb (13.0-17.5) gm/dL Hct (39.0-53.0) % MCV (80.0-100.0) fL RDW (11.5-15.5) % Neutrophils # (Manual) (1.3-7.7) k/uL Lymphocytes # (Manual) (1.0-4.8) k/uL ABG pH (7.35-7.45) ABG pCO2 (35-45) mmHg ABG pO2 (83-108) mmHg ABG HCO3 (21-25) mmol/L ABG Total CO2 (19-24) mmol/L Sodium (137-145) mmol/L Chloride (98-107) mmol/L BUN (9-20) mg/dL Glucose (74-99) mg/dL POC Glucose (mg/dL) 120 H 120 H 118 H (75-99) mg/dL Calcium (8.4-10.2) mg/dL Total Protein (6.3-8.2) g/dL Albumin (3.5-5.0) g/dL Microbiology - Last 24 Hours (Table) 11/10/20 12:16 Blood Culture - Preliminary Blood No Growth after 24 hours 11/10/20 12:12 Blood Culture - Preliminary Blood No Growth after 24 hours 08/25/21 10:00 Gram Stain - Preliminary Bronchial Washings - Right Bronchial Washings Culture - Preliminary Stenotrophomonas maltophilia Gram Neg Bacilli Assessment and Plan Plan: 1 multivessel coronary artery disease, symptomatic, post three-vessel bypass surgery with venous graft and aortic valve replacement. The patient is postop day #7. Hemodynamically stable , failed to wean due to pulmonary complications of COPD and pneumonia. 2 acute hypoxic respiratory failure secondary to advanced COPD and underlying bilateral pneumonia. The patient developed gram-negative pneumonia, possibly ve ntilator associated versus hospital-acquired. The patient initially grew pseudomonas aeruginosa and subsequent bronchoscopy and bronchial alveolar lavage showed stenotrophomonas. The patient is currently on IV cefepime which will be modified. Vancomycin will be discontinued. Stenotrophomonas . has intermediate sensitivity to our cefepime. The patient will placed on IV Merrem. Rule out component of ARDS on top of pneumonia. Patient has advanced COPD and the background. oxygenation remains borderline and essentially unchanged compared to yesterday. He remains on a PEEP of 14 with an FiO2 of 60%. 3 coronary artery disease with previous stenting of the RCA 4 COPD 5 history of extensive right upper lobe pneumonia 6 history of right upper lobe pulmonary nodule identified on a CAT scan of the chest with an average PET scan obesity workup postop with a higher suspicious for malignancy based on the PET scan findings 7 hypertension 8 hyperlipidemia 9 degenerative arthritis. 10 paroxysmal atrial fibrillation, and expected outcome of surgery, current rhythm is sinus Plan Keep the PEEP at 14 and the FiO2 of 60% Discontinue IV cefepime and vancomycin switch this patient IV Merrem. Adjustment was done based on presence of stenotrophomonas in the bronchioloalveolar lavage. Keep the patient sedated with a combination of propofol and fentanyl Management of pressors and hemodynamics per cardiothoracic surgery. Continue bronchodilators and steroids , with further weaning off the steroids within the next 24 hours. No active bronchospasm and wheezing. Remove the chest tube. all of the chest tubes have been removed Continue insulin drip Enteral feeding has been initiated Keep the patient on metoprolol 25 mg by mouth twice a day and amiodarone 400 mg by mouth twice a day regarding approximately atrial fibrillation. We'll continue to follow. possible tracheostomy early next week if he continues to failed to wean off the mechanical ventilator. Critical care evaluation was on a more than 30 minutes. Time with Patient: Greater than 30
[2020-11-11] MEDS: PHENYLEPHRINE 40 MG in SODIUM CHLORIDE 0.9% 250 ML IV SCH (17:44)
[2020-11-11 18:15] LABS: Glucose,Whole Blood 161 mg/dL (75-99)
[2020-11-11] MEDS: INSULIN REGULAR 100 UNIT in SODIUM CHLORIDE 0.9% 100 ML IV SCH (19:00)
[2020-11-11] MEDS: LACTATED RINGERS 1,000 ML IV SCH (19:20)
[2020-11-11 19:58] LABS: Glucose,Whole Blood 134 mg/dL (75-99)
[2020-11-11] MEDS: ATORVASTATIN 80 MG TAB PO SCH (20:33)
[2020-11-11] MEDS: EZETIMIBE 10 MG TAB PO SCH (20:33)
[2020-11-11] MEDS: SENNOSIDES-DOCUSATE SODIUM 1 EACH TAB PO SCH (20:34)
--- NOTE | 2020-11-11 21:31 | P.PN ---
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 Currently he remains in the ICU intubated and sedated. He is on aspirin 325 mg. Also he has evidence of pneumonia secondary to Citrobacter covered with cefepime, he had low-grade fever 2-3 days ago at 100.8, been afebrile for the last 24 hours. Also he is on Solu-Medrol 40 mg for his COPD exacerbation. He is also on insulin drip Several consultants on the case He is tachypneic but blood pressure is a stable Labs reviewed and they looked unremarkable He is kept on aspirin 325 mg daily 11/09/2020 Patient is status post CABG and aortic valve replacement on 11/04. He is still on mechanical ventilation. He failed weaning trial, he underwent bronchoscopy today which showed basically patent airways with only some distal secretions were sucked out. He is still tachypneic around 26-34 Calcitonin still elevated 0.1, he has leukocytosis of 15 gait. No more fever, last fever was on 11/06 around 100. He still He remains on cefepime 2 g twice a day, Solu-Medrol 40 mg. He still on insulin drip while he is on steroids He is on aspirin 325 mg 11/10/2020 Patient remains in the ICU sedated and intubated with pulmonary/critical care team on the case. His PEEP 12 and FiO2 100% is overall doing well as is becoming hard for him to come off the ventilation. Patient is significantly tachypneic at 30 breath per minute, afebrile. He has some leukocytosis around 20 K but also he is on no drips. IV vancomycin added today. Bronchoalveolar lavage culture growing gram-negative bacilli, final results to come back. Patient also covered with cefepime Also started on amiodarone drip today. Continue with aspirin 325 mg. Continue Solu-Medrol. 11/11/2020 pt remains inthe icu intubated and sedated . he is followed closely by pulmonary/critical care team who help in vent management , he was difficult to extubate and needed high PEEP at 14 and FiO2 of 60 % , secondary to pna , he is status bronchoscope an BAL showing stenotrophomonas maltophilia and gram negative bacilli AND his antibiotics were switched to meropenem for better bacterial coverage he is tachypneic 28 bpm , with some improved leukocytosis 14k, Hb 7.4 and Na 146 CXR showing mild improvement he is also on pressors by cardiothoraci team who started him on phenylephrine, he is kept on insulin drip and iv solumedrol with possible started to be tapered down tomorrow as no wheezing. Objective - Vital Signs Vital signs: Vital Signs Temp 98.2 F 11/11/20 08:00 Pulse 70 11/11/20 20:00 Resp 28 H 11/11/20 19:00 BP 112/53 11/11/20 15:00 Pulse Ox 94 L 11/11/20 19:00 Intake & Output 11/11/20 11/11/20 11/12/20 06:59 18:59 06:59 Intake Total 2060.646 1493.285 135.422 Output Total 914 895 30 Balance 1146.646 598.285 105.422 Weight 97.1 kg 97.1 kg Intake: IV 1036 643 3 Cefepime 2 gm In Sodium 100 100 Chloride 0.9% 100 ml @ 25 mls/hr IVPB Q12HR [facility] Rx #:[id number] Lactated Ringers 1,000 ml 650 160 @ 20 mls/hr IV .Q24H [facility] Rx#:[id number] Meropenem 1 gm In Sodium 100 Chloride 0.9% 100 ml @ 33 .3 mls/hr IVPB Q8HR [facility] Rx#:[id number] Pressure Bag 36 33 3 Vancomycin 1,500 mg In 250 250 Sodium Chloride 0.9% 250 ml @ 125 mls/hr IVPB Q12H [facility] Rx#:[id number] Intake, IV Titration 724.646 410.285 92.422 Amount Insulin Regular 100 unit 20.739 60.937 10.858 In Sodium Chloride 0.9% 100 ml @ Per Protocol IV .Q0M [facility] Rx#:[id number] Norepinephrine 4 mg In 123.532 Sodium Chloride 0.9% 250 ml @ 0.05 MCG/KG/MIN 18. 364 mls/hr IV .[id number] [facility] Rx#:[id number] Phenylephrine 40 mg In 8.324 Sodium Chloride 0.9% 250 ml @ 0.5 MCG/KG/MIN 18. 498 mls/hr IV .[id number] [facility] Rx#:[id number] fentaNYL (PF) 2,500 mcg 239.028 In Sodium Chloride 0.9% 200 ml @ Per Protocol IV .Q0M [facility] Rx#:[id number] fentaNYL (PF). 1,000 mcg 283.561 In Sodium Chloride 0.9% 80 ml @ Per Protocol IV . Q0M [facility] Rx#:[id number] propofoL 1,000 mg In 296.814 101.996 81.564 Empty Bag 1 bag @ Titrate IV .Q0M [facility] Rx#: [id number] Tube Feeding 170 370 40 Other 130 70 Output: Urine 914 895 30 Other: Voiding Method Indwelling Catheter Indwelling Catheter ABP, PAP, CO, CI - Last Documented Arterial Blood Pressure 128/49 Pulmonary Artery Pressure 69/37 Cardiac Output 5.2 Cardiac Index 2.6 - Exam -GENERAL: The patient is sedated and intubated HEENT: Pupils are round and equally reacting to light. EOMI. No scleral icterus. No conjunctival pallor. Normocephalic, atraumatic. No pharyngeal erythema. No thyromegaly. CARDIOVASCULAR: S1 and S2 present. No murmurs, rubs, or gallops. PULMONARY: Chest is clear to auscultation, no wheezing or crackles. ABDOMEN: Soft, nontender, nondistended, normoactive bowel sounds. No palpable organomegaly. MUSCULOSKELETAL: No joint swelling or deformity. EXTREMITIES: No cyanosis, clubbing, or pedal edema. NEUROLOGICAL: Gross neurological examination did not reveal any focal deficits. SKIN: No rashes. no petechiae. - Labs CBC & Chem 7: 11/11/20 04:05 11/11/20 04:05 Labs: Abnormal Lab Results - Last 24 Hours (Table) 11/10/20 11/10/20 11/11/20 Range/Units 22:06 23:35 01:34 WBC (3.8-10.6) k/uL RBC (4.30-5.90) m/uL Hgb (13.0-17.5) gm/dL Hct (39.0-53.0) % MCV (80.0-100.0) fL RDW (11.5-15.5) % Neutrophils # (Manual) (1.3-7.7) k/uL Lymphocytes # (Manual) (1.0-4.8) k/uL ABG pCO2 (35-45) mmHg ABG pO2 (83-108) mmHg ABG HCO3 (21-25) mmol/L ABG Total CO2 (19-24) mmol/L Sodium (137-145) mmol/L Chloride (98-107) mmol/L BUN (9-20) mg/dL Glucose (74-99) mg/dL POC Glucose (mg/dL) 147 H 137 H 132 H (75-99) mg/dL Calcium (8.4-10.2) mg/dL Total Protein (6.3-8.2) g/dL Albumin (3.5-5.0) g/dL 11/11/20 11/11/20 11/11/20 Range/Units 04:05 04:05 04:06 WBC 14.5 H (3.8-10.6) k/uL RBC 2.21 L (4.30-5.90) m/uL Hgb 7.4 L (13.0-17.5) gm/dL Hct 22.4 L (39.0-53.0) % MCV 101.0 H (80.0-100.0) fL RDW 18.4 H (11.5-15.5) % Neutrophils # (Manual) 13.49 H (1.3-7.7) k/uL Lymphocytes # (Manual) 0.15 L (1.0-4.8) k/uL ABG pCO2 (35-45) mmHg ABG pO2 (83-108) mmHg ABG HCO3 (21-25) mmol/L ABG Total CO2 (19-24) mmol/L Sodium 146 H (137-145) mmol/L Chloride 112 H (98-107) mmol/L BUN 36 H (9-20) mg/dL Glucose 120 H (74-99) mg/dL POC Glucose (mg/dL) 128 H (75-99) mg/dL Calcium 8.3 L (8.4-10.2) mg/dL Total Protein 4.9 L (6.3-8.2) g/dL Albumin 2.5 L (3.5-5.0) g/dL 11/11/20 11/11/20 11/11/20 Range/Units 04:40 06:25 08:32 WBC (3.8-10.6) k/uL RBC (4.30-5.90) m/uL Hgb (13.0-17.5) gm/dL Hct (39.0-53.0) % MCV (80.0-100.0) fL RDW (11.5-15.5) % Neutrophils # (Manual) (1.3-7.7) k/uL Lymphocytes # (Manual) (1.0-4.8) k/uL ABG pCO2 47 H (35-45) mmHg ABG pO2 71 L (83-108) mmHg ABG HCO3 29 H (21-25) mmol/L ABG Total CO2 30 H (19-24) mmol/L Sodium (137-145) mmol/L Chloride (98-107) mmol/L BUN (9-20) mg/dL Glucose (74-99) mg/dL POC Glucose (mg/dL) 125 H 117 H (75-99) mg/dL Calcium (8.4-10.2) mg/dL Total Protein (6.3-8.2) g/dL Albumin (3.5-5.0) g/dL 11/11/20 11/11/20 11/11/20 Range/Units 10:07 11:36 14:32 WBC (3.8-10.6) k/uL RBC (4.30-5.90) m/uL Hgb (13.0-17.5) gm/dL Hct (39.0-53.0) % MCV (80.0-100.0) fL RDW (11.5-15.5) % Neutrophils # (Manual) (1.3-7.7) k/uL Lymphocytes # (Manual) (1.0-4.8) k/uL ABG pCO2 (35-45) mmHg ABG pO2 (83-108) mmHg ABG HCO3 (21-25) mmol/L ABG Total CO2 (19-24) mmol/L Sodium (137-145) mmol/L Chloride (98-107) mmol/L BUN (9-20) mg/dL Glucose (74-99) mg/dL POC Glucose (mg/dL) 120 H 120 H 118 H (75-99) mg/dL Calcium (8.4-10.2) mg/dL Total Protein (6.3-8.2) g/dL Albumin (3.5-5.0) g/dL 11/11/20 11/11/20 Range/Units 18:13 19:57 WBC (3.8-10.6) k/uL RBC (4.30-5.90) m/uL Hgb (13.0-17.5) gm/dL Hct (39.0-53.0) % MCV (80.0-100.0) fL RDW (11.5-15.5) % Neutrophils # (Manual) (1.3-7.7) k/uL Lymphocytes # (Manual) (1.0-4.8) k/uL ABG pCO2 (35-45) mmHg ABG pO2 (83-108) mmHg ABG HCO3 (21-25) mmol/L ABG Total CO2 (19-24) mmol/L Sodium (137-145) mmol/L Chloride (98-107) mmol/L BUN (9-20) mg/dL Glucose (74-99) mg/dL POC Glucose (mg/dL) 161 H 134 H (75-99) mg/dL Calcium (8.4-10.2) mg/dL Total Protein (6.3-8.2) g/dL Albumin (3.5-5.0) g/dL Microbiology - Last 24 Hours (Table) 11/10/20 12:16 Blood Culture - Preliminary Blood No Growth after 24 hours 11/10/20 12:12 Blood Culture - Preliminary Blood No Growth after 24 hours 11/09/20 10:00 Gram Stain - Preliminary Bronchial Washings - Right Bronchial Washings Culture - Preliminary Stenotrophomonas maltophilia Gram Neg Bacilli Assessment and Plan Assessment: 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 Status post post-bronchoscopy and bronchoalveolar lavage on 11/09 Acute COPD exacerbation, improving Right upper lung nodule highly suspicious for malignancy per PET scan Possible diabetes mellitus Plan: This is a pleasant 75 years old male status post CABG and aortic valve replacement. Also with pneumonia and COPD Continue with meropenem. and Solu-Medrol Pulmonary/critical care team will help with vent management Cardiothoracic surgery primary team on the case, who manage pt pressors Co Director team on the case Continue with aspirin Continue with insulin and monitor her glucose Labs and medication were reviewed.. Continue same treatment. Continue with symptomatic treatment. Resume home medication. Monitor lytes and vitals. DVT and GI prophylaxis. Further recommendations as per clinical course of the patient DVT prophylaxis: Subcutaneous heparin GI Prophylaxis: Ppi Prognosis is guarded Thank you for consulting us
[2020-11-11 22:15] LABS: Glucose,Whole Blood 123 mg/dL (75-99)
[2020-11-12] MEDS: MEROPENEM 1 GM in SODIUM CHLORIDE 0.9% 100 ML IVPB SCH ×4 (00:17→23:37)
[2020-11-12] MEDS: HEPARIN SODIUM,PORCINE/PF 5,000 UNIT/0.5 ML SYRINGE SQ SCH ×4 (00:17→23:38)
[2020-11-12] MEDS: METOCLOPRAMIDE 5 MG/ML 2 ML VIAL IVP SCH ×5 (00:18→23:37)
[2020-11-12] MEDS: methylPREDNISolone SOD SUCCI 40 MG/ML 1 ML VIAL IV SCH ×2 (00:18→10:13)
[2020-11-12 00:49] LABS: Glucose,Whole Blood 128 mg/dL (75-99)
[2020-11-12 01:50] LABS: ABG Base Excess 2.8 mmol/L; ABG HCO3 30 mmol/L (21-25); ABG Oxygen Saturation 85.8 % (94-97); ABG PCO2 63 mmHg (35-45); ABG PH 7.28 (7.35-7.45); ABG TCO2 32 mmol/L (19-24); Allen Test Performed? Yes
[2020-11-12 01:53] LABS: Glucose,Whole Blood 138 mg/dL (75-99)
[2020-11-12 01:54] LABS: ABG PO2 57 mmHg (83-108)
[2020-11-12] MEDS: fentaNYL (PF) 2,500 MCG in SODIUM CHLORIDE 0.9% 200 ML IV SCH ×3 (02:33→19:38)
[2020-11-12 04:07] LABS: ABG Base Excess 2.3 mmol/L; ABG HCO3 30 mmol/L (21-25); ABG Oxygen Saturation 94.4 % (94-97); ABG PCO2 67 mmHg (35-45); ABG PH 7.25 (7.35-7.45); ABG PO2 79 mmHg (83-108); ABG TCO2 32 mmol/L (19-24); Allen Test Performed? Yes
[2020-11-12 04:10] LABS: Glucose,Whole Blood 126 mg/dL (75-99)
[2020-11-12] MEDS ORDERED: DEXTROSE 5% IN WATER 100 ML with AMIODARONE 150 MG IV ONE ×3 (04:16→16:11)
[2020-11-12 04:19] LABS: Anisocytosis Slight; HCT 26.6 % (39.0-53.0); HGB 8.2 gm/dL (13.0-17.5); Hypochromasia Moderate; MCH 31.9 pg (25.0-35.0); MCHC 30.9 g/dL (31.0-37.0); Macrocytosis Moderate; Mean Platelet Volume 9.4; Platelet Count 275 k/uL (150-450); Poikilocytosis Moderate; RBC 2.58 m/uL (4.30-5.90); RDW 18.4 % (11.5-15.5)
[2020-11-12 04:54] LABS: Albumin 2.7 g/dL (3.5-5.0); Calcium 8.1 mg/dL (8.4-10.2); Magnesium 2.8 mg/dL (1.6-2.3); Potassium 5.2 mmol/L (3.5-5.1); Total Bilirubin 0.7 mg/dL (0.2-1.3); Total Protein 5.2 g/dL (6.3-8.2)
[2020-11-12 05:07] LABS: Band Neutrophils % 1 %; Metamyelocytes # (M) 0.21 k/uL (0); Metamyelocytes % 1 %; Neutrophils % (M) 88 %; Nucleated Red Blood Cells 2 /100 WBC (0-0); Total Cells Counted 200
[2020-11-12 05:08] LABS: Anisocytosis (M) Present; Lymphocytes # (M) 0.84 k/uL (1.0-4.8); Monocytes # (M) 1.46 k/uL (0-1.0); Polychromasia Present; WBC 20.9 k/uL (3.8-10.6)
[2020-11-12 07:08] LABS: Glucose,Whole Blood 134 mg/dL (75-99)
--- NOTE | 2020-11-12 07:24 | XR ---
EXAMINATION TYPE: XR chest 1V portable DATE OF EXAM: 11/12/2020 COMPARISON: Chest x-ray 11/11/2020 HISTORY: Status post cardiac surgery TECHNIQUE: Single frontal view of the chest is obtained. FINDINGS: Patient is post median sternotomy. Endotracheal tube and NG tube, left-sided PICC line are overlying appropriate positions. Bibasilar increased attenuation persists, the interstitium and cent ral vascularity are prominent. No evident pneumothorax. Heart is likely stable accounting for differe nces in technique. IMPRESSION: Correlate for congestive heart failure versus pneumonia or ARDS.
[2020-11-12] MEDS: IPRATROPIUM-ALBUTEROL 3 ML NEB INHALATION SCH ×4 (07:29→19:58)
[2020-11-12 07:43] LABS: Glucose,Whole Blood 143 mg/dL (75-99)
[2020-11-12] MEDS ORDERED: VANCOMYCIN TROUGH DUE 1 EACH MISC MISCELLANE ONE (08:00)
--- NOTE | 2020-11-12 08:11 | P.PN ---
Subjective Progress Note Date: 11/12/20 This is a 75-year-old male patient, underwent an aortic valve replacement with a bioprosthetic aortic valve and three-vessel bypass surgery with vein grafts and the patient is currently postoperative in intensive care unit. The patient is known to have coronary artery disease. He has undergone previous coronary intervention stenting of an 80% RCA lesion. He was symptomatic and further investigation revealed triple-vessel disease and for that reason he was taken to the operating room. He is also moderately severe aortic stenosis. Currently is sedated on propofol which is running at 25 mg/kg per minute. Is quite sedated on a mechanical ventilator. His blood gases showed a respiratory acidosis with a pH of 7.136 and a pCO2 of 73 and pO2 of 71. This was an assist-control mode at the rate of 14 with a tidal volume of 450 and FiO2 of 1 and a PEEP of 5. Since then, the PEEP has been increased up to 8, and his respiratory rate is up to 24. Current pulse ox on the monitor that 90%.. The patient has 2 mediastinal chest tubes and 1 pleural chest tube. Output from mediastinal chest tube has been around 450 mL and output from the left pleural chest tube is been around 130 mL since the patient up from the operating room. The patient is hemodynamically supported with Primacor at 0.25 mcg/kg per minute and the patient is also on nitroglycerin drip at 25 g 5 minutes. Patient has a cardiac index of 2.3. Pulmonary artery pressures of 61/31. He is on insulin drip running at 1.5 units an hour. He has an adequate urine output. Chest x-ray postop showed adequate expansion of both lungs. No this of pneumothorax. ET tube is in good location. Richardson-Magdaleno remains in a good location. The patient is an OG tube and 2 mediastinal and 1 pleural chest tube on of the mandible location there is no evidence of any pneumothorax. Cardiac rhythm is sinus. 11/05/2020, the patient remains on a mechanical ventilator. I was unable to wean him yesterday because of his limited oxygenation. Overnight, the patient was kept on a PEEP of 8 and his FiO2 is down to 90% and he has a tidal volume of 450 with a rate of 24. His peak airway pressure this morning is at 24. The morning blood gases showed a pH of 7.44 with a pCO2 of 41 and pO2 of 65. Based on that, I increased the PEEP up to 10 and 30. Blood gases showed a pH of 7.45 with a pCO2 of 40 and pO2 of 92. His FiO2 subsequently was found to 60%. This current pulse ox is 93%. He remains sedated with propofol and he is currently on 20 mcg/kg per minute and is well rested for now. He has 2 mediastinal chest tubes and a left pleural chest tube. Output from the mediastinal chest tube has been 10-20 mL's an hour and from the pleural chest tube is in order of 10-20 mL an hour. The patient's is hemodynamically stable. He is off milrinone for now. Cardiac index is in order of 2.4 with an output of 4.8. There has been impr ovement in the pulmonary artery pressures which is dropped down to 43/25. His CVP is currently at 8. His morning hemoglobin was at 7.5 and the patient was given a unit of packed RBC. He has a RHINA drain in his left lower extremity, output is bloody and minimal at this point in time. His cardiac rhythm is sinus. He is on an insulin drip running at 1.5 units an hour. He is off the nitroglycerin drip. He was given IV Solu Medrol yesterday regarding COPD and some increased bronchospasm and wheeze. He is also on bronchodilators. Chest x-ray from today shows adequate expansion of both lungs. There is a right upper lobe pulmonary nodule that was evident on the previous PET scan. Chronic no dularity and scarring in the left upper lobe also. No sizable pneumothorax. Minimal atelectatic changes and effusion the lung bases. Mediastinal chest tubes and left pleural chest tube of been in good location. Count is up from 82 down to 67. Also is following some simple commands and he can be aroused out of his sedation upon stimulation. 11/06/2020 him I'm seeing this patient for a follow-up. The patient remains intubated. We had some issues with his oxygenation and for that reason his extubation has been delayed. In summary, the patient remains on a mechanical ventilator. This morning he is an assist-control mode at the rate of 24 with a tidal volume of 450 and FiO2 of 60% with a PEEP of 12. Blood gases from today shows a pH of 7.46 orally 6 with a pCO2 of 38 and pO2 of 75. Chest x-ray showing some limited interstitial edema/pulmonary edema and the patient would benefit from some diuretics. His coronary artery pressures have been lower postop and is currently at the pressure of 51/26. CVP is at 7. Cardiac output is 5.3 with an index of 2.7. He is off milrinone. Is off the nitroglycerin drip. He is still on insulin drip at 1.5 units an hour. The output from the mediastinal tube has been 300 over the past 24 hours and output from the left pleural chest tube is 200 mL over the past 24 hours. Output remains somewhat bloody. No evidence of any air leak. No evidence of any pneumothorax on his chest x-ray. He remains sedated with propofol which is running at 30 mg/kg/m. He did have some loose liquidy bloody rest of the secretions which is being suctioned out of his orotracheal tube. Otherwise, his cardiac rhythm remains sinus. Occasional junctional rhythm was also noted. RHINA drain from his left lower extremity has been removed. On today's evaluation on 11/07/2020 patient is seen in the intensive care unit, sedated and intubated, on assist-control mode of ventilation, with a rate of 24, M is 450, FiO2 of 60% and PEEP of 12. This morning his blood gases showed pO2 of 76, pCO2 of 38, and pH is 7.46, today's chest x-ray has been reviewed showing no evidence of pneumothorax, mild scattered ulnar edema, and left lower lobe atelectasis. Patient received a dose of IV Lasix yesterday, however he is still in +200 mL fluid balance over the last 24 hours, he was given an additional dose of IV Lasix this morning per CT surgery. Yesterday an attempt was made to wean down FiO2 however patient's FiO2 down to 50%, however follow-up blood gas showed severe worsening of oxygenation, and pO2 of 46%. His PEEP was increased to 12, and FiO2 at 60%. In addition patient went into A. fib with RVR last night, he was started on amiodarone infusion which is currently infusing at 0.5 mg/m. He is on Diprivan at 40 mics per kilo per minute, lactated Ringer's at 50 ML per hour. Insulin at 3 units per hour. Currently patient remains in A. fib with a better controlled rate at 73 BPM, blood pressure is 122/54, PA pressures 61/31, CVP is 10, article output is 4.7, cardiac index is 2.4. Patient has one mediastinal and one mediastinal chest tube connected to left pleural chest tubes with minimal outputs overnight, no evidence of air leak noted. Epicardial wires are in place, grounded to the chest. Currently not on any anticoagulation, except for full dose aspirin 325 mg. Today's platelet count is 82, HIT antibodies have been sent and are pending right now, as today's blood work has been reviewed showing white blood cell, 12.7, hemoglobin is 7.9, actually lites are within normal limits, B1 is 21 creatinine 0.73. Patient did receive multip le blood products in the postoperative period, 3 units of packed red blood cells, 4 units of FFP, 1 unit of cryoprecipitate, and 1 unit of platelets. There has been no evidence of active bleeding, minimal output from the chest tubes. 11/08/2020, I'm seeing this patient for a follow-up. Unfortunately, the patient remains intubated on a mechanical ventilator and we have been able to wean this patient off the mechanical ventilator. The patient is postop day #4. His oxidation is become an ongoing issue. Unable to cut down the PEEP under 10 as the patient desaturates significantly. His chest x-ray showing some leg by the pulmonary infiltrates in the sputum is positive for Citrobacter and for that reason the patient was started on IV cefepime 2 g every 12 hours. Nevertheless, he has no leukocytosis or fever. Meanwhile, while being a mechanical ventilator, is an assist-control mode at the rate of 24 with a tidal volume of 450 and FiO2 of 70% with a PEEP of 10. Note that overnight, the patient desaturated and had to bring him up to 100% and The PEEP at 10. He was able to wean down as low as 70%. Subsequently, blood gases was done earlier this morning that showed a pH of 7.45 with a pCO2 of 40 and pO2 of 97 and this was on FiO2 of 80%. FiO2 was gradually wean down to 50% and a PEEP was brought down to 10. He was doing well and the subsequent blood gases showed a pH of 7.46 with a pCO2 of 40 and pO2 of 79. I was getting ready to wean this patient off the sedation try to assess his mental status. I dropped the PEEP down to 9 and subsequent his pulse ox dropped down to the low 80s. I to bring up the PEEP back to 10 lengthy is FiO2 back to 80%. Meanwhile, hemodynamically is doing well. His peak air pressures around 24 anesthetic pressures around 17. He is not any bronchospastic and wheezy. He is on a propofol drip running at 40 mg/kg/m. Is on lactated Ringer 20 mL's an hour. Cardiac index is at 2.5 with a output of 4.5. CVP is ranging between 4 and 6. Pulmonary artery pressures are 43/24. He is insulin drip is running at 4 units an hour. His cardiac rhythm is sinus. He did have a run of atrial fibrillation that was treated and the patient is back to normal sinus rhythm. The patient otherwise was started on enteral feeding for nutritional support and is currently on vital high protein at the rate of 40 mL an hour. Case has been discussed extensively with the cardiothoracic team. 11/09/2020, the patient is postop day #5. Remains intubated on a mechanical ventilator. Oxygenation has become an ongoing issue with the patient where we were not able to wean down his vent settings with a palpated oxygenation. Overnight, the patient was quite symptoms with a mechanical ventilator. I had to put him on a VC plus mode with tidal volume of 450, rate of 24, I time of 0.9 seconds, and currently is on a PEEP of 12 with an FiO2 of 70%. Chest x-ray showing bilateral fluffy pulmonary infiltrates consistent with pneumonia. His sputum cultures showing Citrobacter and the patient is ready covered with IV cefepime. No evidence of any pneumothorax. Left pleural chest tube will be pulled out today. Hemodynamically, the patient did have some hypotension overnight and he was given a bolus of 500 mL of fluid and currently is normotensive on no pressors. He is on a renal dose of dopamine and this was started by the cardiothoracic surgeon. The urine output is in order of 50-75 mL an hour. Pulmonary artery pressure 62/27. CVP is between 6 and 8. Cardiac output is 6.2 with an index of 3.1. Maintenance fluids are running at 20 mL an hour. Enteral feeding for nutritional support was started yesterday in the form of vital high protein and the patient is at the rate of 65 mL an hour. He is tolerating his enteral feeding for nutritional support. Cardiac rhythm is sinus. He did have a run of atrial fibrillation yesterday without a rapid ventricular control for around 5 hours. And he converted earlier this morning back to sinus. Patient is currently on propofol which is running at's an hour. The patient is adequately sedated. Is having some issues with pain. He was given oral [place]. Overnight he was also given Dilaudid for pain control which improved also synchrony with a mechanical ventilator. Overall condition remains critical. The patient has had difficulties in weaning off the respirator, probably due to development of a bilateral pneumonia in addition to some background COPD. Blood gases from today showed a pH of 7.4 with a pCO2 of 47 and pO2 of 64 and this was done and FiO2 of 70% with a PEEP of 12. Renal function stable at creatinine of 0.7. White cell count is up to 15.4 and the patient's hemoglobin is at 7.7. He continues to have a 6% bandemia. 11/10/2020, the patient is postop day #6 and the patient has failed to wean off the mechanical ventilator. The patient remains on assist control mode of ventilation, VC plus mode with a tidal volume of 450, FiO2 of 100% and a PEEP of 12. Morning blood gases showed a pH of 7.35 with a pCO2 53 and pO2 of 72. This was on FiO2 of 80%. The patient subsequently desaturated and had to be placed on on the percent. The peak airway pressure is currently at 27 with metastatic a pressure of 18. Remains on bronchodilators. He remains on steroids. Chest x-rays revealing bilateral pulmonary infiltrates, interstitial edema with areas of consolidation. A PICC line was also noted to be in a lace through the left upper extremity. The patient remains on IV cefepime. Chest tubes have been removed. He is sedated with propofol at the rate of 50 medical respiratory kilogram per minute. Overnight, the patient was also quite asynchronous and restless. Fentanyl was added which is currently running at 2.5 mcg/kg/h. He is also on lactated Ringer at 50 mL an hour. He is on a low dose norepinephrine infusion running at 0.03 mcg/kg per minute. Cardiac rhythm is sinus. He is receiving vital high protein boluses. It was noted that the patie nt had increased residual. The tube feeds have been On hold. Note that the patient underwent a bronchoscopy and the bronchioloalveolar lavage was also done yesterday and the results are still pending for now. The sputum analysis and culture grew Citrobacter and the patient is currently on IV cefepime. Is afebrile. His white cell count was rising and is currently at 20.7 with a stable hemoglobin of 7.7. Rest of the blood work and electrodes are all within normal limits. Sodium level is at 143. Potassium is at 4.7. The pro calcitonin level was at 0.18. 11/11/2020, the patient has postop day #7. The patient has a failed to wean off the mechanical ventilator. The patient is following coronary artery bypass surgery. He remains sedated with accommodation up of a fall and fentanyl. For now, performed is running at a dose of 50 mcg/kg per minute and fentanyl is running at 2 mcg/kg/h. This morning, the patient is quite symptoms mechanical ventilator. He is easily arousable and stimulated. He is an assist-control mode at the rate of 28 with a tidal volume of 450 and FiO2 of 60% with a PEEP of 14. Blood gas showed a pH of 7.4 with a pCO2 of 47 and pO2 of 71. The patient is hemodynamically stable on no pressors. Chest x-ray showing bilateral pulmonary infiltrates, essentially unchanged compared to yesterday. A bronchoscopy and the bronchioloalveolar lavage was done and the cultures were repeated showed initially gram-negative bacillus and later on it grew to be st enotrophomonas. The patient was being treated with IV cefepime. On today's evaluation, his white cell count is improved and is down to 14.5 with a stable hemoglobin of 7.4. His sodium level is at 146 with a chloride of 112 and the BUN of 36 with a creatinine of 0.8. The patient is in a sinus rhythm for now. He did have episodes of atrial fibrillation that was treated with IV bolus amiodarone and subsequent the patient converted. He is currently on a oral amiodarone and Lopressor through his orogastric tube. Chest tubes have been removed. The patient has a left brachial PICC line and the left radial arterial line. He is receiving enteral feeding for nutritional support at the rate of 20 mL's an hour. Lasix was given by cardiology. No other issues for now. As mentioned, he has failed to wean as the patient also has advanced COPD this was further [place] by development of bilateral pneumonia. is working in this patient for a follow-up. The patient is postop day #8. Still on a mechanical ventilator with failure to wean. His condition progressively has gotten worse over this past week with development of bilateral pneumonia. This morning, the patient is still on propofol running at 50 mcg/kg per minute and the fentanyl is running at 2 mcg/kg/h. The patient has been adequately sedated and remains on a mechanical ventilator assist control mode with a tidal volume of 450, FiO2 at 100%, PEEP is at extreme and tidal volume of 450 with a rate of 28. Adjustments in the PEEP was done earlier this morning as the patient was desaturating. The most recent blood gas on the current settings was a pH of 7.25 with a pCO2 of 67 and pO2 of 79. Peak airway pressures around 33. Static pressures around 29. Chest x-ray showing diffuse bilateral pulmonary infiltrates. The patient grew stenotrophomonas in the bronchioloalveolar lavage and the patient is currently on IV Merrem. No fever. White cell count is currently at 20.9. He is cardiac rhythm is been abnormal throughout the night. The patient went from normal sinus rhythm into A. fib fibrillation into an atrial tachycardia into paced rhythm. Currently is on amiodarone 400 twice a day and metoprolol 25 mg by mouth twice a day. His current rhythm is paced 100% AAI he does not seem to be tolerating H of fibrillation with RVR as the patient becomes quite hypotensive. Norepinephrine infusion was discontinued and the patient was switched to Huber-Synephrine drip which is currently running at 0.4 mcg/kg per minute. Output is adequate. Chest tubes are removed. He is receiving enteral feeding for nutritional support in the form of vital high protein at 51 mL an hour. No bowel movement activity yet. Urine output is in order of 50-70 mL an hour. Surgical wound site no fever. Surgical wound sites of dry clean and intact. The sternal wound looks good. He has some nonhealing wounds at the level of the chest tube sites. Chest tubes have been discontinued. Objective - Vital Signs Vital signs: Vital Signs Temp 98 F 11/12/20 04:00 Pulse 70 11/12/20 08:00 Resp 28 H 11/12/20 08:00 BP 106/52 11/11/20 22:00 Pulse Ox 97 11/12/20 08:00 Intake & Output 0811/12/20 11/12/20 18:59 06:59 18:59 Intake Total 2137.489 8647.089 88.923 Output Total 895 640 35 Balance 238.903 4735.089 53.923 Weight 97.1 kg 104.3 kg Intake: IV 643 389.3 23 Cefepime 2 gm In Sodium 100 Chloride 0.9% 100 ml @ 25 mls/hr IVPB Q12HR [facility] Rx #:[id number] Lactated Ringers 1,000 ml 160 220 20 @ 20 mls/hr IV .Q24H [facility] Rx#:[id number] Meropenem 1 gm In Sodium 100 133.3 Chloride 0.9% 100 ml @ 33 .3 mls/hr IVPB Q8HR [facility] Rx#:[id number] Pressure Bag 33 36 3 Vancomycin 1,500 mg In 250 Sodium Chloride 0.9% 250 ml @ 125 mls/hr IVPB Q12H [facility] Rx#:[id number] Intake, IV Titration 410.285 706.789 25.923 Amount Insulin Regular 100 unit 60.937 24.788 25.923 In Sodium Chloride 0.9% 100 ml @ Per Protocol IV .Q0M [facility] Rx#:[id number] Phenylephrine 40 mg In 8.324 50.437 Sodium Chloride 0.9% 250 ml @ 0.5 MCG/KG/MIN 18. 498 mls/hr IV .[id number] [facility] Rx#:[id number] fentaNYL (PF) 2,500 mcg 239.028 250 In Sodium Chloride 0.9% 200 ml @ Per Protocol IV .Q0M [facility] Rx#:[id number] propofoL 1,000 mg In 101.996 381.564 Empty Bag 1 bag @ Titrate IV .Q0M [facility] Rx#: [id number] Tube Feeding 370 480 40 Other 70 90 Output: Urine 895 640 35 Other: Voiding Method Indwelling Catheter Indwelling Catheter ABP, PAP, CO, CI - Last Documented Arterial Blood Pressure 110/47 Pulmonary Artery Pressure 69/37 Cardiac Output 5.2 Cardiac Index 2.6 - Exam Gen. appearance the patient sedated, comfortable not in acute respiratory distress orogastric and orotracheal tube are both in place. The patient is quite successful mechanical ventilator. Head exam was generally normal. There was no scleral icterus or corneal arcus. Mucous membranes were moist. Neck was supple and without jugular venous distension, thyromegaly, or carotid bruits. Carotids were easily palpable bilaterally. There was no adenopathy. Lungs sounds are equal and symmetrical bilaterally. Chest tubes have been removed. Breath sounds in general white diminished bilaterally especially in the lung bases. No wheezes. No rhonchi. Cardiac exam revealed the PMI to be normally situated and sized. The rhythm was regular and no extrasystoles were noted during several minutes of auscultation. The first and second heart sounds were normal and physiologic splitting of the second heart sound was noted. There were no murmurs, rubs, clicks, or gallops. Sternum stable clean and intact. Abdominal exam revealed normal bowel sounds. The abdomen was soft, non-tender, and without masses, organomegaly, or appreciable enlargement of the abdominal aorta. Extremities. Pulses are equal and symmetrical diminished. Extremities are cold. No cyanosis or clubbing. Surgical wound site is dry clean and intact. The patient has a left brachial PICC line in the left radial arterial line. Neurologically sedated, pupils are equal and reactive to light. Patient is currently on a combination of fentanyl and propofol or for sedation. - Labs CBC & Chem 7: 11/12/20 04:05 11/12/20 04:05 Labs: Abnormal Lab Results - Last 24 Hours (Table) 11/11/20 11/11/20 11/11/20 Range/Units 08:32 10:07 11:36 WBC (3.8-10.6) k/uL RBC (4.30-5.90) m/uL Hgb (13.0-17.5) gm/dL Hct (39.0-53.0) % MCV (80.0-100.0) fL MCHC (31.0-37.0) g/dL RDW (11.5-15.5) % Neutrophils # (Manual) (1.3-7.7) k/uL Lymphocytes # (Manual) (1.0-4.8) k/uL Monocytes # (Manual) (0-1.0) k/uL Metamyelocytes # (Man) (0) k/uL Nucleated RBCs (0-0) /100 WBC ABG pH (7.35-7.45) ABG pCO2 (35-45) mmHg ABG pO2 (83-108) mmHg ABG HCO3 (21-25) mmol/L ABG Total CO2 (19-24) mmol/L ABG O2 Saturation (94-97) % Potassium (3.5-5.1) mmol/L Chloride (98-107) mmol/L BUN (9-20) mg/dL Glucose (74-99) mg/dL POC Glucose (mg/dL) 117 H 120 H 120 H (75-99) mg/dL Calcium (8.4-10.2) mg/dL Magnesium (1.6-2.3) mg/dL Total Protein (6.3-8.2) g/dL Albumin (3.5-5.0) g/dL 11/11/20 11/11/20 11/11/20 Range/Units 14:32 18:13 19:57 WBC (3.8-10.6) k/uL RBC (4.30-5.90) m/uL Hgb (13.0-17.5) gm/dL Hct (39.0-53.0) % MCV (80.0-100.0) fL MCHC (31.0-37.0) g/dL RDW (11.5-15.5) % Neutrophils # (Manual) (1.3-7.7) k/uL Lymphocytes # (Manual) (1.0-4.8) k/uL Monocytes # (Manual) (0-1.0) k/uL Metamyelocytes # (Man) (0) k/uL Nucleated RBCs (0-0) /100 WBC ABG pH (7.35-7.45) ABG pCO2 (35-45) mmHg ABG pO2 (83-108) mmHg ABG HCO3 (21-25) mmol/L ABG Total CO2 (19-24) mmol/L ABG O2 Saturation (94-97) % Potassium (3.5-5.1) mmol/L Chloride (98-107) mmol/L BUN (9-20) mg/dL Glucose (74-99) mg/dL POC Glucose (mg/dL) 118 H 161 H 134 H (75-99) mg/dL Calcium (8.4-10.2) mg/dL Magnesium (1.6-2.3) mg/dL Total Protein (6.3-8.2) g/dL Albumin (3.5-5.0) g/dL 11/11/20 11/12/20 11/12/20 Range/Units 22:13 00:31 01:48 WBC (3.8-10.6) k/uL RBC (4.30-5.90) m/uL Hgb (13.0-17.5) gm/dL Hct (39.0-53.0) % MCV (80.0-100.0) fL MCHC (31.0-37.0) g/dL RDW (11.5-15.5) % Neutrophils # (Manual) (1.3-7.7) k/uL Lymphocytes # (Manual) (1.0-4.8) k/uL Monocytes # (Manual) (0-1.0) k/uL Metamyelocytes # (Man) (0) k/uL Nucleated RBCs (0-0) /100 WBC ABG pH 7.28 L (7.35-7.45) ABG pCO2 63 H (35-45) mmHg ABG pO2 57 L* (83-108) mmHg ABG HCO3 30 H (21-25) mmol/L ABG Total CO2 32 H (19-24) mmol/L ABG O2 Saturation 85.8 L (94-97) % Potassium (3.5-5.1) mmol/L Chloride (98-107) mmol/L BUN (9-20) mg/dL Glucose (74-99) mg/dL POC Glucose (mg/dL) 123 H 128 H (75-99) mg/dL Calcium (8.4-10.2) mg/dL Magnesium (1.6-2.3) mg/dL Total Protein (6.3-8.2) g/dL Albumin (3.5-5.0) g/dL 11/12/20 11/12/20 11/12/20 Range/Units 01:49 04:02 04:05 WBC 20.9 H (3.8-10.6) k/uL RBC 2.58 L (4.30-5.90) m/uL Hgb 8.2 L (13.0-17.5) gm/dL Hct 26.6 L (39.0-53.0) % MCV 103.0 H (80.0-100.0) fL MCHC 30.9 L (31.0-37.0) g/dL RDW 18.4 H (11.5-15.5) % Neutrophils # (Manual) 18.60 H (1.3-7.7) k/uL Lymphocytes # (Manual) 0.84 L (1.0-4.8) k/uL Monocytes # (Manual) 1.46 H (0-1.0) k/uL Metamyelocytes # (Man) 0.21 H (0) k/uL Nucleated RBCs 2 H (0-0) /100 WBC ABG pH 7.25 L (7.35-7.45) ABG pCO2 67 H (35-45) mmHg ABG pO2 79 L (83-108) mmHg ABG HCO3 30 H (21-25) mmol/L ABG Total CO2 32 H (19-24) mmol/L ABG O2 Saturation (94-97) % Potassium (3.5-5.1) mmol/L Chloride (98-107) mmol/L BUN (9-20) mg/dL Glucose (74-99) mg/dL POC Glucose (mg/dL) 138 H (75-99) mg/dL Calcium (8.4-10.2) mg/dL Magnesium (1.6-2.3) mg/dL Total Protein (6.3-8.2) g/dL Albumin (3.5-5.0) g/dL 11/12/20 11/12/20 11/12/20 Range/Units 04:05 04:05 07:07 WBC (3.8-10.6) k/uL RBC (4.30-5.90) m/uL Hgb (13.0-17.5) gm/dL Hct (39.0-53.0) % MCV (80.0-100.0) fL MCHC (31.0-37.0) g/dL RDW (11.5-15.5) % Neutrophils # (Manual) (1.3-7.7) k/uL Lymphocytes # (Manual) (1.0-4.8) k/uL Monocytes # (Manual) (0-1.0) k/uL Metamyelocytes # (Man) (0) k/uL Nucleated RBCs (0-0) /100 WBC ABG pH (7.35-7.45) ABG pCO2 (35-45) mmHg ABG pO2 (83-108) mmHg ABG HCO3 (21-25) mmol/L ABG Total CO2 (19-24) mmol/L ABG O2 Saturation (94-97) % Potassium 5.2 H (3.5-5.1) mmol/L Chloride 111 H (98-107) mmol/L BUN 50 H (9-20) mg/dL Glucose 120 H (74-99) mg/dL POC Glucose (mg/dL) 126 H 134 H (75-99) mg/dL Calcium 8.1 L (8.4-10.2) mg/dL Magnesium 2.8 H (1.6-2.3) mg/dL Total Protein 5.2 L (6.3-8.2) g/dL Albumin 2.7 L (3.5-5.0) g/dL 11/12/20 Range/Units 07:41 WBC (3.8-10.6) k/uL RBC (4.30-5.90) m/uL Hgb (13.0-17.5) gm/dL Hct (39.0-53.0) % MCV (80.0-100.0) fL MCHC (31.0-37.0) g/dL RDW (11.5-15.5) % Neutrophils # (Manual) (1.3-7.7) k/uL Lymphocytes # (Manual) (1.0-4.8) k/uL Monocytes # (Manual) (0-1.0) k/uL Metamyelocytes # (Man) (0) k/uL Nucleated RBCs (0-0) /100 WBC ABG pH (7.35-7.45) ABG pCO2 (35-45) mmHg ABG pO2 (83-108) mmHg ABG HCO3 (21-25) mmol/L ABG Total CO2 (19-24) mmol/L ABG O2 Saturation (94-97) % Potassium (3.5-5.1) mmol/L Chloride (98-107) mmol/L BUN (9-20) mg/dL Glucose (74-99) mg/dL POC Glucose (mg/dL) 143 H (75-99) mg/dL Calcium (8.4-10.2) mg/dL Magnesium (1.6-2.3) mg/dL Total Protein (6.3-8.2) g/dL Albumin (3.5-5.0) g/dL Microbiology - Last 24 Hours (Table) 11/10/20 12:16 Blood Culture - Preliminary Blood No Growth after 24 hours 11/10/20 12:12 Blood Culture - Preliminary Blood No Growth after 24 hours 11/09/20 10:00 Gram Stain - Preliminary Bronchial Washings - Right Bronchial Washings Culture - Preliminary Stenotrophomonas maltophilia Gram Neg Bacilli Assessment and Plan Plan: 1 multivessel coronary artery disease, symptomatic, post three-vessel bypass surgery with venous graft and aortic valve replacement. The patient is postop day #8. failed to wean due to pulmonary complications of COPD and pneumonia. He had for now, the patient remains intubated on mechanical ventilator. The patient is running on a low-dose Huber-Synephrine. Is having some ongoing cardiac rhythm issues including paroxysmal atrial fibrillation and currently is on a combination of amiodarone and metoprolol. Morning rhythm is paced 100%, AI. His current rate is at 70. 2 acute hypoxic respiratory failure secondary to advanced COPD and underlying bilateral pneumonia. The patient developed gram-negative pneumonia, possibly ve ntilator associated versus hospital-acquired. The patient initially grew pseudomonas aeruginosa and subsequent bronchoscopy and bronchial alveolar lavage showed stenotrophomonas. The patient is currently on IV cefepime which will be modified. Vancomycin will be discontinued. Stenotrophomonas . has intermediate sensitivity to our cefepime. The patient will placed on IV Merrem. CXR is still showing diffuse bilateral pulmonary infiltrates. White cell count of 20.9. Oxygenation is borderline on a PEEP of 16 with an FiO2 of 100. He also has some respiratory acidosis. 3 coronary artery disease with previous stenting of the RCA 4 COPD 5 history of extensive right upper lobe pneumonia, history of 6 history of right upper lobe pulmonary nodule identified on a CAT scan of the chest with an average PET scan obesity workup postop with a higher suspicious for malignancy based on the PET scan findings 7 hypertension 8 hyperlipidemia 9 degenerative arthritis. 10 paroxysmal atrial fibrillation, and expected outcome of surgery, current rhythm is paced, AAI, 70 Plan Keep the PEEP at 16 and the FiO2 of 100% increase rate up to 32. Dropped i- time to 0.7. Repeated blood gases and 20-30 minutes.continue IV Merrem for pseudomonas/ stenotrophomonas in the bronchioloalveolar lavage. Keep the patient sedated with a combination of propofol and fentanyl Management of pressors and hemodynamics per cardiothoracic surgery. Continue bronchodilators and steroids , with further weaning off the steroids within the next 24 hours. No active bronchospasm and wheezing. I would suggest stopping the IV Solu-Medrol to 40 mg every 24 hours. All of the chest tubes have been removed Continue insulin drip at 4 U/hour, give this patient 20 units of Levemir insulin and sliding scale coverage and discontinue the insulin drip. We'll make further adjustments in insulin coverage based on his blood sugar control. Enteral feeding has been initiated Keep the patient on metoprolol 25 mg by mouth twice a day and amiodarone 400 mg by mouth twice a day regarding approximately atrial fibrillation. We'll continue to follow. possible tracheostomy early next week if he continues to failed to wean off the mechanical ventilator. Critical care evaluation was on a more than 30 minutes. Time with Patient: Greater than 30
[2020-11-12 08:14] LABS: ABG Base Excess 1.5 mmol/L; ABG HCO3 29 mmol/L (21-25); ABG Oxygen Saturation 97.1 % (94-97); ABG PCO2 65 mmHg (35-45); ABG PH 7.26 (7.35-7.45); ABG PO2 95 mmHg (83-108); ABG TCO2 31 mmol/L (19-24)
[2020-11-12] MEDS: PHENYLEPHRINE 40 MG in SODIUM CHLORIDE 0.9% 250 ML IV SCH ×2 (08:41→11:52)
[2020-11-12 09:19] LABS: ABG Base Excess 1.7 mmol/L; ABG HCO3 29 mmol/L (21-25); ABG PCO2 65 mmHg (35-45); ABG PH 7.26 (7.35-7.45); ABG TCO2 31 mmol/L (19-24)
--- NOTE | 2020-11-12 09:21 | P.PN ---
Subjective Progress Note Date: 11/12/20 Principal diagnosis: Severe triple vessel coronary artery disease, moderate to severe aortic valve stenosis, pulmonary hypertension and right upper lobe pulmonary nodule, suspicious for malignancy based on PET scan findings. Past medical history significant for hypertension, hyperlipidemia, right subclavian artery stenosis, coronary artery disease with previous stenting of the right coronary artery, history of right upper lobe pneumonia, COPD with preoperative FEV1 showing a predicted value of 66%, DLCO 18% of predicted value and remote history of nicotine dependence in which he quit smoking around 25 years ago. POD #8 aortic valve replacement with a 27 mm De León Inspiris bioprosthetic aortic valve, coronary artery bypass grafting 3 with a reverse saphenous vein graft off the aorta to the circumflex coronary artery, the left anterior descending coronary artery and the posterior descending coronary artery with bilateral lower extremity greater saphenous vein endoscopic harvesting. Clip ligation of the left atrial appendage with a 35 mm Atriclip, intraoperative transesophageal echocardiogram and graft flow measurement using the [employer] system. Postoperative acute blood loss anemia and thrombocytopenia, expected given hemodilution and cardiopulmonary bypass. Prolonged mechanical ventilation, secondary acute hypoxic respiratory failure with ongoing hypoxemia, preoperative FEV1 66% of predicted value and DLCO 18% of predicted value. Paroxysmal atrial fibrillation, a known common occurrence after cardiac surgery Postoperative pneumonia with sputum culture positive for Citrobacter freundii, unexpected, bronchial washings positive for Stenotrophomonas maltophilia The patient remains laying in the intensive care unit on sedation with propofol and fentanyl with mechanical ventilation. Remains afebrile, white blood cell count 20.9 this morning, was 14.5 yesterday. Remains on IV Solu-Medrol, meropenem added and cefepime/vancomyocin discontinued. Did have rapid atrial fibrillation followed by atrial tachycardia last night, was given 3 boluses IV amiodarone over the course of the evening, became hypotensive and amiodarone was stopped, phenylephrine was initiated. All of this occurred when patient was laid flat. Currently in sinus rhythm and normotensive head of the bed up 30. Left brachial PICC line, left radial arterial line remain present. Currently receiving tube feeding at its 40 mL per hour. He has received Lasix for the last 3 days. Ventilator settings adjusted by Dr. Espino, currently on 100% FiO2 with 16 of PEEP. Objective - Vital Signs Vital signs: Vital Signs Temp 98 F 11/12/20 04:00 Pulse 70 11/12/20 08:00 Resp 28 H 11/12/20 08:00 BP 106/52 11/11/20 22:00 Pulse Ox 97 11/12/20 08:00 Intake & Output 11/11/20 11/12/20 11/12/20 18:59 06:59 18:59 Intake Total 7485.705 2013.089 88.923 Output Total 895 640 35 Balance 076.884 8967.089 53.923 Weight 97.1 kg 104.3 kg Intake: IV 643 389.3 23 Cefepime 2 gm In Sodium 100 Chloride 0.9% 100 ml @ 25 mls/hr IVPB Q12HR CINDY Rx #:[id number] Lactated Ringers 1,000 ml 160 220 20 @ 20 mls/hr IV .Q24H [facility] Rx#:[id number] Meropenem 1 gm In Sodium 100 133.3 Chloride 0.9% 100 ml @ 33 .3 mls/hr IVPB Q8HR CINDY Rx#:[id number] Pressure Bag 33 36 3 Vancomycin 1,500 mg In 250 Sodium Chloride 0.9% 250 ml @ 125 mls/hr IVPB Q12H CINDY Rx#:[id number] Intake, IV Titration 410.285 706.789 25.923 Amount Insulin Regular 100 unit 60.937 24.788 25.923 In Sodium Chloride 0.9% 100 ml @ Per Protocol IV .Q0M [facility]INDY Rx#:[id number] Phenylephrine 40 mg In 8.324 50.437 Sodium Chloride 0.9% 250 ml @ 0.5 MCG/KG/MIN 18. 498 mls/hr IV .[id number] [facility] Rx#:[id number] fentaNYL (PF) 2,500 mcg 239.028 250 In Sodium Chloride 0.9% 200 ml @ Per Protocol IV .Q0M [facility]INDY Rx#:[id number] propofoL 1,000 mg In 101.996 381.564 Empty Bag 1 bag @ Titrate IV .Q0M CINDY Rx#: [id number] Tube Feeding 370 480 40 Other 70 90 Output: Urine 895 640 35 Other: Voiding Method Indwelling Catheter Indwelling Catheter ABP, PAP, CO, CI - Last Documented Arterial Blood Pressure 110/47 Pulmonary Artery Pressure 69/37 Cardiac Output 5.2 Cardiac Index 2.6 - Exam CONSTITUTIONAL: Remains sedated on mechanical ventilation RESPIRATORY: Lungs sounds diminished bilaterally with coarse breath sounds in the bases. Respirations even, nonlabored on mechanical ventilation. Currently on assist control mode with FiO2 100%, PEEP 16, tidal volume 450, respiratory rate increased to 32. 8.5 ET tube present, 23 at the lip CARDIOVASCULAR: S1, S2 present. Regular rate and rhythm, sinus rhythm on telemetry in the 60s underlying with atrially paced rate at 70 bpm. Sternum stable. Palpable peripheral pulses bilaterally. Generalized edema present. Heart hugger, antiembolism stockings, SCDs present. GASTROINTESTINAL: Abdomen soft, nontender, nondistended. Active bowel sounds present 4 quadrants. Tube feeding infusing at 40 mL per hour. Positive bowel movement 11/09 GENITOURINARY: Espinal present draining clear, yellow urine. Output overnight 60-75 mL per hour, 1535 mL in the last 24 hours INTEGUMENTARY: Skin is warm and dry. Anterior chest incision well approximated and covered with dry intact dressing. Left lower extremity EVH site well approximated without redness or drainage PSYCHIATRIC: Sedated on mechanical ventilation. Per nursing off sedation patient will raise his eyebrows but does not follow much other commands INVASIVE LINES AND TUBES: A/V epicardial pacemaker wires present, AAI mode with rate 70 bpm. Left brachial PICC line, left radial arterial line present. - Allied health notes Allied health notes reviewed: nursing - Labs CBC & Chem 7: 11/12/20 04:05 11/12/20 04:05 Labs: Abnormal Lab Results - Last 24 Hours (Table) 11/11/20 11/11/20 11/11/20 Range/Units 10:07 11:36 14:32 WBC (3.8-10.6) k/uL RBC (4.30-5.90) m/uL Hgb (13.0-17.5) gm/dL Hct (39.0-53.0) % MCV (80.0-100.0) fL MCHC (31.0-37.0) g/dL RDW (11.5-15.5) % Neutrophils # (Manual) (1.3-7.7) k/uL Lymphocytes # (Manual) (1.0-4.8) k/uL Monocytes # (Manual) (0-1.0) k/uL Metamyelocytes # (Man) (0) k/uL Nucleated RBCs (0-0) /100 WBC ABG pH (7.35-7.45) ABG pCO2 (35-45) mmHg ABG pO2 (83-108) mmHg ABG HCO3 (21-25) mmol/L ABG Total CO2 (19-24) mmol/L ABG O2 Saturation (94-97) % Potassium (3.5-5.1) mmol/L Chloride (98-107) mmol/L BUN (9-20) mg/dL Glucose (74-99) mg/dL POC Glucose (mg/dL) 120 H 120 H 118 H (75-99) mg/dL Calcium (8.4-10.2) mg/dL Magnesium (1.6-2.3) mg/dL Total Protein (6.3-8.2) g/dL Albumin (3.5-5.0) g/dL 11/11/20 11/11/20 11/11/20 Range/Units 18:13 19:57 22:13 WBC (3.8-10.6) k/uL RBC (4.30-5.90) m/uL Hgb (13.0-17.5) gm/dL Hct (39.0-53.0) % MCV (80.0-100.0) fL MCHC (31.0-37.0) g/dL RDW (11.5-15.5) % Neutrophils # (Manual) (1.3-7.7) k/uL Lymphocytes # (Manual) (1.0-4.8) k/uL Monocytes # (Manual) (0-1.0) k/uL Metamyelocytes # (Man) (0) k/uL Nucleated RBCs (0-0) /100 WBC ABG pH (7.35-7.45) ABG pCO2 (35-45) mmHg ABG pO2 (83-108) mmHg ABG HCO3 (21-25) mmol/L ABG Total CO2 (19-24) mmol/L ABG O2 Saturation (94-97) % Potassium (3.5-5.1) mmol/L Chloride (98-107) mmol/L BUN (9-20) mg/dL Glucose (74-99) mg/dL POC Glucose (mg/dL) 161 H 134 H 123 H (75-99) mg/dL Calcium (8.4-10.2) mg/dL Magnesium (1.6-2.3) mg/dL Total Protein (6.3-8.2) g/dL Albumin (3.5-5.0) g/dL 11/12/20 11/12/20 11/12/20 Range/Units 00:31 01:48 01:49 WBC (3.8-10.6) k/uL RBC (4.30-5.90) m/uL Hgb (13.0-17.5) gm/dL Hct (39.0-53.0) % MCV (80.0-100.0) fL MCHC (31.0-37.0) g/dL RDW (11.5-15.5) % Neutrophils # (Manual) (1.3-7.7) k/uL Lymphocytes # (Manual) (1.0-4.8) k/uL Monocytes # (Manual) (0-1.0) k/uL Metamyelocytes # (Man) (0) k/uL Nucleated RBCs (0-0) /100 WBC ABG pH 7.28 L (7.35-7.45) ABG pCO2 63 H (35-45) mmHg ABG pO2 57 L* (83-108) mmHg ABG HCO3 30 H (21-25) mmol/L ABG Total CO2 32 H (19-24) mmol/L ABG O2 Saturation 85.8 L (94-97) % Potassium (3.5-5.1) mmol/L Chloride (98-107) mmol/L BUN (9-20) mg/dL Glucose (74-99) mg/dL POC Glucose (mg/dL) 128 H 138 H (75-99) mg/dL Calcium (8.4-10.2) mg/dL Magnesium (1.6-2.3) mg/dL Total Protein (6.3-8.2) g/dL Albumin (3.5-5.0) g/dL 11/12/20 11/12/20 11/12/20 Range/Units 04:02 04:05 04:05 WBC 20.9 H (3.8-10.6) k/uL RBC 2.58 L (4.30-5.90) m/uL Hgb 8.2 L (13.0-17.5) gm/dL Hct 26.6 L (39.0-53.0) % MCV 103.0 H (80.0-100.0) fL MCHC 30.9 L (31.0-37.0) g/dL RDW 18.4 H (11.5-15.5) % Neutrophils # (Manual) 18.60 H (1.3-7.7) k/uL Lymphocytes # (Manual) 0.84 L (1.0-4.8) k/uL Monocytes # (Manual) 1.46 H (0-1.0) k/uL Metamyelocytes # (Man) 0.21 H (0) k/uL Nucleated RBCs 2 H (0-0) /100 WBC ABG pH 7.25 L (7.35-7.45) ABG pCO2 67 H (35-45) mmHg ABG pO2 79 L (83-108) mmHg ABG HCO3 30 H (21-25) mmol/L ABG Total CO2 32 H (19-24) mmol/L ABG O2 Saturation (94-97) % Potassium 5.2 H (3.5-5.1) mmol/L Chloride 111 H (98-107) mmol/L BUN 50 H (9-20) mg/dL Glucose 120 H (74-99) mg/dL POC Glucose (mg/dL) (75-99) mg/dL Calcium 8.1 L (8.4-10.2) mg/dL Magnesium 2.8 H (1.6-2.3) mg/dL Total Protein 5.2 L (6.3-8.2) g/dL Albumin 2.7 L (3.5-5.0) g/dL 11/12/20 11/12/20 11/12/20 Range/Units 04:05 07:07 07:41 WBC (3.8-10.6) k/uL RBC (4.30-5.90) m/uL Hgb (13.0-17.5) gm/dL Hct (39.0-53.0) % MCV (80.0-100.0) fL MCHC (31.0-37.0) g/dL RDW (11.5-15.5) % Neutrophils # (Manual) (1.3-7.7) k/uL Lymphocytes # (Manual) (1.0-4.8) k/uL Monocytes # (Manual) (0-1.0) k/uL Metamyelocytes # (Man) (0) k/uL Nucleated RBCs (0-0) /100 WBC ABG pH (7.35-7.45) ABG pCO2 (35-45) mmHg ABG pO2 (83-108) mmHg ABG HCO3 (21-25) mmol/L ABG Total CO2 (19-24) mmol/L ABG O2 Saturation (94-97) % Potassium (3.5-5.1) mmol/L Chloride (98-107) mmol/L BUN (9-20) mg/dL Glucose (74-99) mg/dL POC Glucose (mg/dL) 126 H 134 H 143 H (75-99) mg/dL Calcium (8.4-10.2) mg/dL Magnesium (1.6-2.3) mg/dL Total Protein (6.3-8.2) g/dL Albumin (3.5-5.0) g/dL 11/12/20 Range/Units 08:10 WBC (3.8-10.6) k/uL RBC (4.30-5.90) m/uL Hgb (13.0-17.5) gm/dL Hct (39.0-53.0) % MCV (80.0-100.0) fL MCHC (31.0-37.0) g/dL RDW (11.5-15.5) % Neutrophils # (Manual) (1.3-7.7) k/uL Lymphocytes # (Manual) (1.0-4.8) k/uL Monocytes # (Manual) (0-1.0) k/uL Metamyelocytes # (Man) (0) k/uL Nucleated RBCs (0-0) /100 WBC ABG pH 7.26 L (7.35-7.45) ABG pCO2 65 H (35-45) mmHg ABG pO2 (83-108) mmHg ABG HCO3 29 H (21-25) mmol/L ABG Total CO2 31 H (19-24) mmol/L ABG O2 Saturation 97.1 H (94-97) % Potassium (3.5-5.1) mmol/L Chloride (98-107) mmol/L BUN (9-20) mg/dL Glucose (74-99) mg/dL POC Glucose (mg/dL) (75-99) mg/dL Calcium (8.4-10.2) mg/dL Magnesium (1.6-2.3) mg/dL Total Protein (6.3-8.2) g/dL Albumin (3.5-5.0) g/dL Microbiology - Last 24 Hours (Table) 11/10/20 12:16 Blood Culture - Preliminary Blood No Growth after 24 hours 11/10/20 12:12 Blood Culture - Preliminary Blood No Growth after 24 hours 11/09/20 10:00 Gram Stain - Preliminary Bronchial Washings - Right Bronchial Washings Culture - Preliminary Stenotrophomonas maltophilia Gram Neg Bacilli - Imaging and Cardiology Chest x-ray: report reviewed, image reviewed Assessment and Plan Assessment: 1. Severe triple-vessel coronary artery disease, status post three-vessel coronary artery bypass grafting surgery 2. Moderate to severe aortic valve stenosis, status post aortic valve replacement with a #27 mm De León Inspiris bioprosthetic aortic valve 3. Pulmonary hypertension 4. Known right upper lobe pulmonary nodule, suspicious for malignancy based on PET scan findings 5. COPD with a preoperative FEV1 66% of predicted value and a DLCO 18% of predicted value 6. Known right subclavian artery stenosis 7. History of Hypertension 8. Hyperlipidemia, treated 9. History of coronary artery disease with previous stenting of the right coronary artery 10. 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 Remote history of nicotine dependence, quit smoking over 25 years ago 12. Postoperative anemia and thrombocytopenia, expected given hemodilution and cardiopulmonary bypass 13. Prolonged mechanical ventilator support, secondary to acute respiratory failure with ongoing hypoxemia 14. Paroxysmal atrial fibrillation, a known common occurrence after cardiac surgery, currently in normal sinus rhythm 15. Pneumonia, sputum culture positive for Citrobacter freundii, Stenotrophomonas maltophilia Plan: 1. Continue to optimize medical management with aspirin, statin, zetia, and beta paul. Wean Huber as tolerated 2. Continue meropenem, IV steroids per pulmonology recommendations. Blood cultures ordered, await results 3. Patient may need tracheostomy and PEG tube placement once stable. Will discuss with family 4. Continue to monitor daily labs and chest x-rays. Electrolyte replacement per protocol. 5. Pain control with current medication regimen. 6. GI/DVT prophylaxis 7. Insulin management per primary care service. The patient is not diabetic with preoperative hemoglobin A1c 5.4%, needs tight blood sugar control to promote sternal union and prevent infection. 8. Keep left radial arterial line in place. 9. Continue Espinal catheter for another for strict accurate intake and output. Continue to monitor daily weights. 10. Continue atrial and ventricular pacemaker wires with pacemaker generator to a AAI rate of 70 BPM. 11. Continue tube feedings 12. More recommendations to follow Time with Patient: Greater than 30
[2020-11-12] MEDS ORDERED: SODIUM BICARB 8.4% 50 ML SYR (1 MEQ/ML) IV STA (09:28)
[2020-11-12] MEDS ORDERED: FUROSEMIDE 10 MG/ML 4 ML VIAL IV STA (09:28)
[2020-11-12] MEDS ORDERED: SODIUM BICARB 8.4% 50 ML SYR (1 MEQ/ML) ONE (09:30)
[2020-11-12] MEDS ORDERED: FUROSEMIDE 10 MG/ML 4 ML VIAL ONE (09:30)
[2020-11-12] MEDS: INSULIN DETEMIR (LEVEMIR) 100 UNIT/ML SYR SQ SCH (09:43)
--- NOTE | 2020-11-12 09:49 | XR ---
EXAMINATION TYPE: XR chest 1V portable DATE OF EXAM: 11/12/2020 COMPARISON: Chest x-ray 11/12/2020 HISTORY: Hypoxemia TECHNIQUE: Single frontal view of the chest is obtained. FINDINGS: There is no significant interval change. IMPRESSION: Similar findings to prior exam. Correlate for pneumonia, pulmonary edema, ARDS, there ma y be pleural effusions.
[2020-11-12 09:50] LABS: ABG PO2 51 mmHg (83-108)
[2020-11-12 09:59] LABS: ABG Base Excess 7.4 mmol/L; ABG HCO3 33 mmol/L (21-25); ABG PCO2 62 mmHg (35-45); ABG PH 7.33 (7.35-7.45); ABG PO2 126 mmHg (83-108); ABG TCO2 35 mmol/L (19-24)
[2020-11-12] MEDS: FERROUS SULFATE ORAL ELIXIR 300 MG/5 ML CUP OG-TUBE SCH ×2 (10:10→20:28)
[2020-11-12] MEDS: CHLORHEXIDINE GLUCONATE 15 ML CUP MUCOUS MEM SCH ×2 (10:10→20:28)
[2020-11-12] MEDS: ASPIRIN 325 MG TAB PO SCH (10:12)
[2020-11-12] MEDS: ASCORBIC ACID 500 MG TAB PO SCH (10:12)
[2020-11-12] MEDS: METOPROLOL TARTRATE 25 MG TAB PO SCH ×2 (10:12→20:32)
[2020-11-12] MEDS: MULTIVITAMINS, THERA 1 EACH TAB PO SCH (10:12)
[2020-11-12] MEDS: PANTOPRAZOLE 40 MG/10 ML VIAL IVP SCH (10:13)
[2020-11-12 11:37] LABS: Glucose,Whole Blood 134 mg/dL (75-99)
[2020-11-12] MEDS: INSULIN ASPART (NovoLOG) 100 UNIT/ML VIAL SQ SCH ×4 (11:40→23:37)
[2020-11-12] MEDS: AMIODARONE 200 MG TAB PO SCH ×2 (11:40→20:28)
--- NOTE | 2020-11-12 12:57 | P.PN ---
Subjective Progress Note Date: 11/12/20 This is a 75-year-old gentleman with history of severe aortic stenosis who is status post aortic valve replacement with bioprosthetic valve and CAD status post bypass surgery. Patient has postoperative respiratory failure and remains intubated on mechanical ventilator. Currently with a PEEP of 24 and FiO2 100%. Continues to have significant issues with hypoxia. Recent repeat echocardiogram showed preserved LV systolic function. Underlying bradycardia requiring external pacemaker, currently pacing 100%. Continues to have intermittent episodes of paroxysmal atrial fibrillation with rapid ventricular response requiring amiodarone boluses amiodarone has been increased to 400 mg by mouth twice a day. Patient had a few episodes over the last 24 hours lasting about 30 minutes at a time of paroxysmal atrial fibrillation. Vital signs this morning showed blood pressure 117/49 with an oxygen saturation of 95% on 100% FiO2.. He's been afebrile. Objective - Vital Signs Vital signs: Vital Signs Temp 98 F 11/12/20 04:00 Pulse 70 11/12/20 11:42 Resp 24 11/12/20 11:00 BP 106/52 11/11/20 22:00 Pulse Ox 95 11/12/20 11:00 Intake & Output 11/11/20 11/12/20 11/12/20 18:59 06:59 18:59 Intake Total 9006.515 3439.089 963.953 Output Total 895 640 310 Balance 739.514 3022.089 653.953 Weight 97.1 kg 104.3 kg Intake: IV 643 389.3 195 Cefepime 2 gm In Sodium 100 Chloride 0.9% 100 ml @ 25 mls/hr IVPB Q12HR [facility] Rx #:[id number] Lactated Ringers 1,000 ml 160 220 80 @ 20 mls/hr IV .Q24H [facility] Rx#:[id number] Meropenem 1 gm In Sodium 100 133.3 100 Chloride 0.9% 100 ml @ 33 .3 mls/hr IVPB Q8HR [facility] Rx#:[id number] Pressure Bag 33 36 15 Vancomycin 1,500 mg In 250 Sodium Chloride 0.9% 250 ml @ 125 mls/hr IVPB Q12H [facility] Rx#:[id number] Intake, IV Titration 410.285 706.789 538.953 Amount Insulin Regular 100 unit 60.937 24.788 25.923 In Sodium Chloride 0.9% 100 ml @ Per Protocol IV .Q0M [facility] Rx#:[id number] Phenylephrine 40 mg In 8.324 50.437 163.030 Sodium Chloride 0.9% 250 ml @ 0.5 MCG/KG/MIN 18. 498 mls/hr IV .[id number] [facility] Rx#:[id number] fentaNYL (PF) 2,500 mcg 239.028 250 250 In Sodium Chloride 0.9% 200 ml @ Per Protocol IV .Q0M [facility] Rx#:[id number] propofoL 1,000 mg In 101.996 381.564 100 Empty Bag 1 bag @ Titrate IV .Q0M [facility] Rx#: [id number] Tube Feeding 370 480 200 Other 70 90 30 Output: Urine 895 640 310 Other: Voiding Method Indwelling Catheter Indwelling Catheter ABP, PAP, CO, CI - Last Documented Arterial Blood Pressure 117/49 Pulmonary Artery Pressure 69/37 Cardiac Output 5.2 Cardiac Index 2.6 - Exam PHYSICAL EXAMINATION: HEENT: Head is atraumatic, normocephalic. Neck is supple. There is no elevated jugular venous pressure. HEART EXAMINATION: Heart sounds regular, S1 and S2 normal.. CHEST EXAMINATION: Lungs reveal diminished air entry bilaterally. ABDOMEN: Soft, nontender. Bowel sounds are heard. No organomegaly noted. EXTREMITIES: 2+ peripheral pulses with no evidence of peripheral edema and no calf tenderness noted. NEUROLOGIC patient is sedated and intubated. . - Labs CBC & Chem 7: 11/12/20 04:05 11/12/20 04:05 Labs: Abnormal Lab Results - Last 24 Hours (Table) 11/11/20 11/11/20 11/11/20 Range/Units 14:32 18:13 19:57 WBC (3.8-10.6) k/uL RBC (4.30-5.90) m/uL Hgb (13.0-17.5) gm/dL Hct (39.0-53.0) % MCV (80.0-100.0) fL MCHC (31.0-37.0) g/dL RDW (11.5-15.5) % Neutrophils # (Manual) (1.3-7.7) k/uL Lymphocytes # (Manual) (1.0-4.8) k/uL Monocytes # (Manual) (0-1.0) k/uL Metamyelocytes # (Man) (0) k/uL Nucleated RBCs (0-0) /100 WBC ABG pH (7.35-7.45) ABG pCO2 (35-45) mmHg ABG pO2 (83-108) mmHg ABG HCO3 (21-25) mmol/L ABG Total CO2 (19-24) mmol/L ABG O2 Saturation (94-97) % Potassium (3.5-5.1) mmol/L Chloride (98-107) mmol/L BUN (9-20) mg/dL Glucose (74-99) mg/dL POC Glucose (mg/dL) 118 H 161 H 134 H (75-99) mg/dL Calcium (8.4-10.2) mg/dL Magnesium (1.6-2.3) mg/dL Total Protein (6.3-8.2) g/dL Albumin (3.5-5.0) g/dL 11/11/20 11/12/20 11/12/20 Range/Units 22:13 00:31 01:48 WBC (3.8-10.6) k/uL RBC (4.30-5.90) m/uL Hgb (13.0-17.5) gm/dL Hct (39.0-53.0) % MCV (80.0-100.0) fL MCHC (31.0-37.0) g/dL RDW (11.5-15.5) % Neutrophils # (Manual) (1.3-7.7) k/uL Lymphocytes # (Manual) (1.0-4.8) k/uL Monocytes # (Manual) (0-1.0) k/uL Metamyelocytes # (Man) (0) k/uL Nucleated RBCs (0-0) /100 WBC ABG pH 7.28 L (7.35-7.45) ABG pCO2 63 H (35-45) mmHg ABG pO2 57 L* (83-108) mmHg ABG HCO3 30 H (21-25) mmol/L ABG Total CO2 32 H (19-24) mmol/L ABG O2 Saturation 85.8 L (94-97) % Potassium (3.5-5.1) mmol/L Chloride (98-107) mmol/L BUN (9-20) mg/dL Glucose (74-99) mg/dL POC Glucose (mg/dL) 123 H 128 H (75-99) mg/dL Calcium (8.4-10.2) mg/dL Magnesium (1.6-2.3) mg/dL Total Protein (6.3-8.2) g/dL Albumin (3.5-5.0) g/dL 11/12/20 11/12/20 11/12/20 Range/Units 01:49 04:02 04:05 WBC 20.9 H (3.8-10.6) k/uL RBC 2.58 L (4.30-5.90) m/uL Hgb 8.2 L (13.0-17.5) gm/dL Hct 26.6 L (39.0-53.0) % MCV 103.0 H (80.0-100.0) fL MCHC 30.9 L (31.0-37.0) g/dL RDW 18.4 H (11.5-15.5) % Neutrophils # (Manual) 18.60 H (1.3-7.7) k/uL Lymphocytes # (Manual) 0.84 L (1.0-4.8) k/uL Monocytes # (Manual) 1.46 H (0-1.0) k/uL Metamyelocytes # (Man) 0.21 H (0) k/uL Nucleated RBCs 2 H (0-0) /100 WBC ABG pH 7.25 L (7.35-7.45) ABG pCO2 67 H (35-45) mmHg ABG pO2 79 L (83-108) mmHg ABG HCO3 30 H (21-25) mmol/L ABG Total CO2 32 H (19-24) mmol/L ABG O2 Saturation (94-97) % Potassium (3.5-5.1) mmol/L Chloride (98-107) mmol/L BUN (9-20) mg/dL Glucose (74-99) mg/dL POC Glucose (mg/dL) 138 H (75-99) mg/dL Calcium (8.4-10.2) mg/dL Magnesium (1.6-2.3) mg/dL Total Protein (6.3-8.2) g/dL Albumin (3.5-5.0) g/dL 11/12/20 11/12/20 11/12/20 Range/Units 04:05 04:05 07:07 WBC (3.8-10.6) k/uL RBC (4.30-5.90) m/uL Hgb (13.0-17.5) gm/dL Hct (39.0-53.0) % MCV (80.0-100.0) fL MCHC (31.0-37.0) g/dL RDW (11.5-15.5) % Neutrophils # (Manual) (1.3-7.7) k/uL Lymphocytes # (Manual) (1.0-4.8) k/uL Monocytes # (Manual) (0-1.0) k/uL Metamyelocytes # (Man) (0) k/uL Nucleated RBCs (0-0) /100 WBC ABG pH (7.35-7.45) ABG pCO2 (35-45) mmHg ABG pO2 (83-108) mmHg ABG HCO3 (21-25) mmol/L ABG Total CO2 (19-24) mmol/L ABG O2 Saturation (94-97) % Potassium 5.2 H (3.5-5.1) mmol/L Chloride 111 H (98-107) mmol/L BUN 50 H (9-20) mg/dL Glucose 120 H (74-99) mg/dL POC Glucose (mg/dL) 126 H 134 H (75-99) mg/dL Calcium 8.1 L (8.4-10.2) mg/dL Magnesium 2.8 H (1.6-2.3) mg/dL Total Protein 5.2 L (6.3-8.2) g/dL Albumin 2.7 L (3.5-5.0) g/dL 11/12/20 11/12/20 11/12/20 Range/Units 07:41 08:10 09:17 WBC (3.8-10.6) k/uL RBC (4.30-5.90) m/uL Hgb (13.0-17.5) gm/dL Hct (39.0-53.0) % MCV (80.0-100.0) fL MCHC (31.0-37.0) g/dL RDW (11.5-15.5) % Neutrophils # (Manual) (1.3-7.7) k/uL Lymphocytes # (Manual) (1.0-4.8) k/uL Monocytes # (Manual) (0-1.0) k/uL Metamyelocytes # (Man) (0) k/uL Nucleated RBCs (0-0) /100 WBC ABG pH 7.26 L 7.26 L (7.35-7.45) ABG pCO2 65 H 65 H (35-45) mmHg ABG pO2 51 L* (83-108) mmHg ABG HCO3 29 H 29 H (21-25) mmol/L ABG Total CO2 31 H 31 H (19-24) mmol/L ABG O2 Saturation 97.1 H 82.0 L (94-97) % Potassium (3.5-5.1) mmol/L Chloride (98-107) mmol/L BUN (9-20) mg/dL Glucose (74-99) mg/dL POC Glucose (mg/dL) 143 H (75-99) mg/dL Calcium (8.4-10.2) mg/dL Magnesium (1.6-2.3) mg/dL Total Protein (6.3-8.2) g/dL Albumin (3.5-5.0) g/dL 11/12/20 11/12/20 Range/Units 09:53 11:35 WBC (3.8-10.6) k/uL RBC (4.30-5.90) m/uL Hgb (13.0-17.5) gm/dL Hct (39.0-53.0) % MCV (80.0-100.0) fL MCHC (31.0-37.0) g/dL RDW (11.5-15.5) % Neutrophils # (Manual) (1.3-7.7) k/uL Lymphocytes # (Manual) (1.0-4.8) k/uL Monocytes # (Manual) (0-1.0) k/uL Metamyelocytes # (Man) (0) k/uL Nucleated RBCs (0-0) /100 WBC ABG pH 7.33 L (7.35-7.45) ABG pCO2 62 H (35-45) mmHg ABG pO2 126 H (83-108) mmHg ABG HCO3 33 H (21-25) mmol/L ABG Total CO2 35 H (19-24) mmol/L ABG O2 Saturation 99.0 H (94-97) % Potassium (3.5-5.1) mmol/L Chloride (98-107) mmol/L BUN (9-20) mg/dL Glucose (74-99) mg/dL POC Glucose (mg/dL) 134 H (75-99) mg/dL Calcium (8.4-10.2) mg/dL Magnesium (1.6-2.3) mg/dL Total Protein (6.3-8.2) g/dL Albumin (3.5-5.0) g/dL Microbiology - Last 24 Hours (Table) 11/09/20 10:00 Gram Stain - Final Bronchial Washings - Right Bronchial Washings Culture - Final Stenotrophomonas maltophilia Citrobacter freundii 11/10/20 12:16 Blood Culture - Preliminary Blood No Growth after 24 hours 11/10/20 12:12 Blood Culture - Preliminary Blood No Growth after 24 hours Assessment and Plan Assessment: #1 CAD, status post coronary artery bypass grafting #2 aortic stenosis, status post aortic valve replacement #3 respiratory failure requiring mechanical ventilator, likely ARDS #4 paroxysmal atrial fibrillation Plan: From cardiology's perspective patient's prognosis remains guarded. Continue amiodarone 400 mg by mouth twice a day and metoprolol. We will continue to follow the patient and write further recommendations accordingly. The above dictated assessment and findings were discussed with signing physician. The impression and plan of care have been directed as dictated. Alyson Herr, Nurse Practitioner, acting as scribe for signing physician.
[2020-11-12 14:05] LABS: ABG Base Excess 4.7 mmol/L; ABG HCO3 31 mmol/L (21-25); ABG PCO2 58 mmHg (35-45); ABG PH 7.33 (7.35-7.45); ABG PO2 302 mmHg (83-108); ABG TCO2 32 mmol/L (19-24)
[2020-11-12 15:50] LABS: Glucose,Whole Blood 132 mg/dL (75-99)
[2020-11-12] MEDS ORDERED: DIGOXIN 250 MCG/ML 2 ML AMP IVP STA (16:50)
[2020-11-12] MEDS: LACTATED RINGERS 1,000 ML IV SCH (18:40)
[2020-11-12 19:58] LABS: Glucose,Whole Blood 154 mg/dL (75-99)
[2020-11-12] MEDS: SENNOSIDES-DOCUSATE SODIUM 1 EACH TAB PO SCH (20:28)
[2020-11-12] MEDS: EZETIMIBE 10 MG TAB PO SCH (20:28)
[2020-11-12] MEDS: ATORVASTATIN 80 MG TAB PO SCH (20:28)
[2020-11-12] MEDS ORDERED: DIGOXIN 250 MCG/ML 2 ML AMP IVP ONE (21:42)
--- NOTE | 2020-11-12 22:16 | P.PN ---
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 Currently he remains in the ICU intubated and sedated. He is on aspirin 325 mg. Also he has evidence of pneumonia secondary to Citrobacter covered with cefepime, he had low-grade fever 2-3 days ago at 100.8, been afebrile for the last 24 hours. Also he is on Solu-Medrol 40 mg for his COPD exacerbation. He is also on insulin drip Several consultants on the case He is tachypneic but blood pressure is a stable Labs reviewed and they looked unremarkable He is kept on aspirin 325 mg daily 11/09/2020 Patient is status post CABG and aortic valve replacement on 11/04. He is still on mechanical ventilation. He failed weaning trial, he underwent bronchoscopy today which showed basically patent airways with only some distal secretions were sucked out. He is still tachypneic around 26-34 Calcitonin still elevated 0.1, he has leukocytosis of 15 gait. No more fever, last fever was on 11/06 around 100. He still He remains on cefepime 2 g twice a day, Solu-Medrol 40 mg. He still on insulin drip while he is on steroids He is on aspirin 325 mg 11/10/2020 Patient remains in the ICU sedated and intubated with pulmonary/critical care team on the case. His PEEP 12 and FiO2 100% is overall doing well as is becoming hard for him to come off the ventilation. Patient is significantly tachypneic at 30 breath per minute, afebrile. He has some leukocytosis around 20 K but also he is on no drips. IV vancomycin added today. Bronchoalveolar lavage culture growing gram-negative bacilli, final results to come back. Patient also covered with cefepime Also started on amiodarone drip today. Continue with aspirin 325 mg. Continue Solu-Medrol. 11/11/2020 pt remains inthe icu intubated and sedated . he is followed closely by pulmonary/critical care team who help in vent management , he was difficult to extubate and needed high PEEP at 14 and FiO2 of 60 % , secondary to pna , he is status bronchoscope an BAL showing stenotrophomonas maltophilia and gram negative bacilli AND his antibiotics were switched to meropenem for better bacterial coverage he is tachypneic 28 bpm , with some improved leukocytosis 14k, Hb 7.4 and Na 146 CXR showing mild improvement he is also on pressors by cardiothoraci team who started him on phenylephrine, he is kept on insulin drip and iv solumedrol with possible started to be tapered down tomorrow as no wheezing. 11/12/2020 Patient in ICU intubated and sedated in critical condition. This morning he needed more PEEP was increased to 22 and FiO2 was 100% however later on during the day was lowered to 8%. No more fever but he is tachypneic. Leukocytosis of 20 K. Hemoglobin is stable at 8.2. Sodium improved at 145. He remains on Medrol 40 mg and antibiotics adjusted yesterday to meropenem with sputum culture is growing stenotrophomonas maltophilia and Citrobacter. Chest x-ray showing edema versus ARDS with some possible pleural effusion Once this insulin drip was switched to Levemir 24 years with close monitoring of glucose is also on metoprolol and amiodarone 400 mg twice a day several consultants on the case including pulmonary/cardiology and cardiothoracic surgery primary team Objective - Vital Signs Vital signs: Vital Signs Temp 98.7 F 11/12/20 12:00 Pulse 70 11/12/20 13:00 Resp 34 H 11/12/20 13:00 BP 106/52 11/11/20 22:00 Pulse Ox 97 11/12/20 13:00 Intake & Output 11/11/20 11/12/20 11/12/20 18:59 06:59 18:59 Intake Total 7035.020 5770.089 1139.953 Output Total 895 640 400 Balance 149.038 4146.089 739.953 Weight 97.1 kg 104.3 kg Intake: IV 643 389.3 241 Cefepime 2 gm In Sodium 100 Chloride 0.9% 100 ml @ 25 mls/hr IVPB Q12HR [facility] Rx #:[id number] Lactated Ringers 1,000 ml 160 220 120 @ 20 mls/hr IV .Q24H [facility] Rx#:[id number] Meropenem 1 gm In Sodium 100 133.3 100 Chloride 0.9% 100 ml @ 33 .3 mls/hr IVPB Q8HR [facility] Rx#:[id number] Pressure Bag 33 36 21 Vancomycin 1,500 mg In 250 Sodium Chloride 0.9% 250 ml @ 125 mls/hr IVPB Q12H [facility] Rx#:[id number] Intake, IV Titration 410.285 706.789 538.953 Amount Insulin Regular 100 unit 60.937 24.788 25.923 In Sodium Chloride 0.9% 100 ml @ Per Protocol IV .Q0M [facility] Rx#:[id number] Phenylephrine 40 mg In 8.324 50.437 163.030 Sodium Chloride 0.9% 250 ml @ 0.5 MCG/KG/MIN 18. 498 mls/hr IV .[id number] [facility] Rx#:[id number] fentaNYL (PF) 2,500 mcg 239.028 250 250 In Sodium Chloride 0.9% 200 ml @ Per Protocol IV .Q0M [facility] Rx#:[id number] propofoL 1,000 mg In 101.996 381.564 100 Empty Bag 1 bag @ Titrate IV .Q0M [facility] Rx#: [id number] Tube Feeding 370 480 300 Other 70 90 60 Output: Urine 895 640 400 Other: Voiding Method Indwelling Catheter Indwelling Catheter ABP, PAP, CO, CI - Last Documented Arterial Blood Pressure 120/52 Pulmonary Artery Pressure 69/37 Cardiac Output 5.2 Cardiac Index 2.6 - Exam -GENERAL: The patient is sedated and intubated HEENT: Pupils are round and equally reacting to light. EOMI. No scleral icterus. No conjunctival pallor. Normocephalic, atraumatic. No pharyngeal erythema. No thyromegaly. CARDIOVASCULAR: S1 and S2 present. No murmurs, rubs, or gallops. PULMONARY: Chest is clear to auscultation, no wheezing or crackles. ABDOMEN: Soft, nontender, nondistended, normoactive bowel sounds. No palpable organomegaly. MUSCULOSKELETAL: No joint swelling or deformity. EXTREMITIES: No cyanosis, clubbing, or pedal edema. NEUROLOGICAL: Gross neurological examination did not reveal any focal deficits. SKIN: No rashes. no petechiae. - Labs CBC & Chem 7: 11/12/20 04:05 11/12/20 04:05 Labs: Abnormal Lab Results - Last 24 Hours (Table) 11/11/20 11/11/20 11/11/20 Range/Units 14:32 18:13 19:57 WBC (3.8-10.6) k/uL RBC (4.30-5.90) m/uL Hgb (13.0-17.5) gm/dL Hct (39.0-53.0) % MCV (80.0-100.0) fL MCHC (31.0-37.0) g/dL RDW (11.5-15.5) % Neutrophils # (Manual) (1.3-7.7) k/uL Lymphocytes # (Manual) (1.0-4.8) k/uL Monocytes # (Manual) (0-1.0) k/uL Metamyelocytes # (Man) (0) k/uL Nucleated RBCs (0-0) /100 WBC ABG pH (7.35-7.45) ABG pCO2 (35-45) mmHg ABG pO2 (83-108) mmHg ABG HCO3 (21-25) mmol/L ABG Total CO2 (19-24) mmol/L ABG O2 Saturation (94-97) % Potassium (3.5-5.1) mmol/L Chloride (98-107) mmol/L BUN (9-20) mg/dL Glucose (74-99) mg/dL POC Glucose (mg/dL) 118 H 161 H 134 H (75-99) mg/dL Calcium (8.4-10.2) mg/dL Magnesium (1.6-2.3) mg/dL Total Protein (6.3-8.2) g/dL Albumin (3.5-5.0) g/dL 11/11/20 11/12/20 11/12/20 Range/Units 22:13 00:31 01:48 WBC (3.8-10.6) k/uL RBC (4.30-5.90) m/uL Hgb (13.0-17.5) gm/dL Hct (39.0-53.0) % MCV (80.0-100.0) fL MCHC (31.0-37.0) g/dL RDW (11.5-15.5) % Neutrophils # (Manual) (1.3-7.7) k/uL Lymphocytes # (Manual) (1.0-4.8) k/uL Monocytes # (Manual) (0-1.0) k/uL Metamyelocytes # (Man) (0) k/uL Nucleated RBCs (0-0) /100 WBC ABG pH 7.28 L (7.35-7.45) ABG pCO2 63 H (35-45) mmHg ABG pO2 57 L* (83-108) mmHg ABG HCO3 30 H (21-25) mmol/L ABG Total CO2 32 H (19-24) mmol/L ABG O2 Saturation 85.8 L (94-97) % Potassium (3.5-5.1) mmol/L Chloride (98-107) mmol/L BUN (9-20) mg/dL Glucose (74-99) mg/dL POC Glucose (mg/dL) 123 H 128 H (75-99) mg/dL Calcium (8.4-10.2) mg/dL Magnesium (1.6-2.3) mg/dL Total Protein (6.3-8.2) g/dL Albumin (3.5-5.0) g/dL 11/12/20 11/12/20 11/12/20 Range/Units 01:49 04:02 04:05 WBC 20.9 H (3.8-10.6) k/uL RBC 2.58 L (4.30-5.90) m/uL Hgb 8.2 L (13.0-17.5) gm/dL Hct 26.6 L (39.0-53.0) % MCV 103.0 H (80.0-100.0) fL MCHC 30.9 L (31.0-37.0) g/dL RDW 18.4 H (11.5-15.5) % Neutrophils # (Manual) 18.60 H (1.3-7.7) k/uL Lymphocytes # (Manual) 0.84 L (1.0-4.8) k/uL Monocytes # (Manual) 1.46 H (0-1.0) k/uL Metamyelocytes # (Man) 0.21 H (0) k/uL Nucleated RBCs 2 H (0-0) /100 WBC ABG pH 7.25 L (7.35-7.45) ABG pCO2 67 H (35-45) mmHg ABG pO2 79 L (83-108) mmHg ABG HCO3 30 H (21-25) mmol/L ABG Total CO2 32 H (19-24) mmol/L ABG O2 Saturation (94-97) % Potassium (3.5-5.1) mmol/L Chloride (98-107) mmol/L BUN (9-20) mg/dL Glucose (74-99) mg/dL POC Glucose (mg/dL) 138 H (75-99) mg/dL Calcium (8.4-10.2) mg/dL Magnesium (1.6-2.3) mg/dL Total Protein (6.3-8.2) g/dL Albumin (3.5-5.0) g/dL 11/12/20 11/12/20 11/12/20 Range/Units 04:05 04:05 07:07 WBC (3.8-10.6) k/uL RBC (4.30-5.90) m/uL Hgb (13.0-17.5) gm/dL Hct (39.0-53.0) % MCV (80.0-100.0) fL MCHC (31.0-37.0) g/dL RDW (11.5-15.5) % Neutrophils # (Manual) (1.3-7.7) k/uL Lymphocytes # (Manual) (1.0-4.8) k/uL Monocytes # (Manual) (0-1.0) k/uL Metamyelocytes # (Man) (0) k/uL Nucleated RBCs (0-0) /100 WBC ABG pH (7.35-7.45) ABG pCO2 (35-45) mmHg ABG pO2 (83-108) mmHg ABG HCO3 (21-25) mmol/L ABG Total CO2 (19-24) mmol/L ABG O2 Saturation (94-97) % Potassium 5.2 H (3.5-5.1) mmol/L Chloride 111 H (98-107) mmol/L BUN 50 H (9-20) mg/dL Glucose 120 H (74-99) mg/dL POC Glucose (mg/dL) 126 H 134 H (75-99) mg/dL Calcium 8.1 L (8.4-10.2) mg/dL Magnesium 2.8 H (1.6-2.3) mg/dL Total Protein 5.2 L (6.3-8.2) g/dL Albumin 2.7 L (3.5-5.0) g/dL 11/12/20 11/12/20 11/12/20 Range/Units 07:41 08:10 09:17 WBC (3.8-10.6) k/uL RBC (4.30-5.90) m/uL Hgb (13.0-17.5) gm/dL Hct (39.0-53.0) % MCV (80.0-100.0) fL MCHC (31.0-37.0) g/dL RDW (11.5-15.5) % Neutrophils # (Manual) (1.3-7.7) k/uL Lymphocytes # (Manual) (1.0-4.8) k/uL Monocytes # (Manual) (0-1.0) k/uL Metamyelocytes # (Man) (0) k/uL Nucleated RBCs (0-0) /100 WBC ABG pH 7.26 L 7.26 L (7.35-7.45) ABG pCO2 65 H 65 H (35-45) mmHg ABG pO2 51 L* (83-108) mmHg ABG HCO3 29 H 29 H (21-25) mmol/L ABG Total CO2 31 H 31 H (19-24) mmol/L ABG O2 Saturation 97.1 H 82.0 L (94-97) % Potassium (3.5-5.1) mmol/L Chloride (98-107) mmol/L BUN (9-20) mg/dL Glucose (74-99) mg/dL POC Glucose (mg/dL) 143 H (75-99) mg/dL Calcium (8.4-10.2) mg/dL Magnesium (1.6-2.3) mg/dL Total Protein (6.3-8.2) g/dL Albumin (3.5-5.0) g/dL 11/12/20 11/12/20 Range/Units 09:53 11:35 WBC (3.8-10.6) k/uL RBC (4.30-5.90) m/uL Hgb (13.0-17.5) gm/dL Hct (39.0-53.0) % MCV (80.0-100.0) fL MCHC (31.0-37.0) g/dL RDW (11.5-15.5) % Neutrophils # (Manual) (1.3-7.7) k/uL Lymphocytes # (Manual) (1.0-4.8) k/uL Monocytes # (Manual) (0-1.0) k/uL Metamyelocytes # (Man) (0) k/uL Nucleated RBCs (0-0) /100 WBC ABG pH 7.33 L (7.35-7.45) ABG pCO2 62 H (35-45) mmHg ABG pO2 126 H (83-108) mmHg ABG HCO3 33 H (21-25) mmol/L ABG Total CO2 35 H (19-24) mmol/L ABG O2 Saturation 99.0 H (94-97) % Potassium (3.5-5.1) mmol/L Chloride (98-107) mmol/L BUN (9-20) mg/dL Glucose (74-99) mg/dL POC Glucose (mg/dL) 134 H (75-99) mg/dL Calcium (8.4-10.2) mg/dL Magnesium (1.6-2.3) mg/dL Total Protein (6.3-8.2) g/dL Albumin (3.5-5.0) g/dL Microbiology - Last 24 Hours (Table) 11/09/20 10:00 Gram Stain - Final Bronchial Washings - Right Bronchial Washings Culture - Final Stenotrophomonas maltophilia Citrobacter freundii 11/10/20 12:16 Blood Culture - Preliminary Blood No Growth after 24 hours 11/10/20 12:12 Blood Culture - Preliminary Blood No Growth after 24 hours Assessment and Plan Assessment: 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 Status post post-bronchoscopy and bronchoalveolar lavage on 11/09 Acute COPD exacerbation, improving Right upper lung nodule highly suspicious for malignancy per PET scan Possible diabetes mellitus Plan: This is a pleasant 75 years old male status post CABG and aortic valve replacement. Also with pneumonia and COPD Continue with meropenem. and Solu-Medrol Pulmonary/critical care team will help with vent management Cardiothoracic surgery primary team on the case, who manage pt pressors Production Control Specialist team on the case Continue with aspirin Continue with insulin and monitor her glucose Labs and medication were reviewed.. Continue same treatment. Continue with symptomatic treatment. Resume home medication. Monitor lytes and vitals. DVT and GI prophylaxis. Further recommendations as per clinical course of the patient DVT prophylaxis: Subcutaneous heparin GI Prophylaxis: Ppi Prognosis is guarded Thank you for consulting us
[2020-11-12 23:31] LABS: Glucose,Whole Blood 138 mg/dL (75-99)
[2020-11-13] MEDS: PHENYLEPHRINE 40 MG in SODIUM CHLORIDE 0.9% 250 ML IV SCH ×3 (00:20→18:04)
[2020-11-13] MEDS ORDERED: DIGOXIN 250 MCG/ML 2 ML AMP IVP ONE (02:00)
[2020-11-13] MEDS: fentaNYL (PF) 2,500 MCG in SODIUM CHLORIDE 0.9% 200 ML IV SCH ×3 (03:40→20:03)
[2020-11-13 03:59] LABS: Glucose,Whole Blood 126 mg/dL (75-99)
[2020-11-13 04:09] LABS: Anisocytosis Slight; HCT 25.2 % (39.0-53.0); Hypochromasia Marked; MCH 32.8 pg (25.0-35.0); MCHC 31.7 g/dL (31.0-37.0); MCV 103.4 fL (80.0-100.0); Macrocytosis Moderate; Mean Platelet Volume 10.4; Platelet Count 299 k/uL (150-450); Poikilocytosis Slight; RBC 2.43 m/uL (4.30-5.90)
[2020-11-13] MEDS: INSULIN ASPART (NovoLOG) 100 UNIT/ML VIAL SQ SCH ×5 (04:38→19:53)
[2020-11-13 04:55] LABS: Albumin 2.5 g/dL (3.5-5.0); Calcium 7.9 mg/dL (8.4-10.2); Magnesium 2.9 mg/dL (1.6-2.3); Potassium 5.3 mmol/L (3.5-5.1); Total Bilirubin 0.5 mg/dL (0.2-1.3)
[2020-11-13 05:17] LABS: ABG Base Excess 4.3 mmol/L; ABG HCO3 31 mmol/L (21-25); ABG Oxygen Saturation 96.9 % (94-97); ABG PCO2 65 mmHg (35-45); ABG PH 7.29 (7.35-7.45); ABG PO2 90 mmHg (83-108); ABG TCO2 33 mmol/L (19-24); Allen Test Performed? Yes
[2020-11-13 05:59] LABS: Lymphocytes # (M) 0.69 k/uL (1.0-4.8); Monocytes # (M) 1.15 k/uL (0-1.0); Neutrophils # (M) 21.16 k/uL (1.3-7.7); Neutrophils % (M) 92 %; Nucleated Red Blood Cells 0 /100 WBC (0-0); Total Cells Counted 100
[2020-11-13] MEDS: METOCLOPRAMIDE 5 MG/ML 2 ML VIAL IVP SCH ×4 (06:01→23:54)
[2020-11-13] MEDS ORDERED: INSULIN DETEMIR (LEVEMIR) 100 UNIT/ML SYR SQ SCH (07:00)
[2020-11-13] MEDS: IPRATROPIUM-ALBUTEROL 3 ML NEB INHALATION SCH ×4 (07:09→19:28)
--- NOTE | 2020-11-13 07:20 | XR ---
EXAMINATION TYPE: XR chest 1V portable DATE OF EXAM: 11/13/2020 COMPARISON: Chest x-ray 11/12/2020 HISTORY: Status post cardiac surgery, intubated TECHNIQUE: Single frontal view of the chest is obtained. FINDINGS: Endotracheal tube, NG tube, left-sided PICC line, post median sternotomy and left atrial a ppendage clip change are all stable. There is no evident pneumothorax. Bibasilar increased attenuatio n persists, interstitium is increased. Hemidiaphragms are obscured. Left costophrenic angle and right costophrenic angle are not included on the exam. Heart is stable. IMPRESSION: Correlate for pneumonia, edema, ARDS
--- NOTE | 2020-11-13 08:18 | P.PN ---
Subjective Progress Note Date: 11/13/20 This is a 75-year-old male patient, underwent an aortic valve replacement with a bioprosthetic aortic valve and three-vessel bypass surgery with vein grafts and the patient is currently postoperative in intensive care unit. The patient is known to have coronary artery disease. He has undergone previous coronary intervention stenting of an 80% RCA lesion. He was symptomatic and further investigation revealed triple-vessel disease and for that reason he was taken to the operating room. He is also moderately severe aortic stenosis. Currently is sedated on propofol which is running at 25 mg/kg per minute. Is quite sedated on a mechanical ventilator. His blood gases showed a respiratory acidosis with a pH of 7.136 and a pCO2 of 73 and pO2 of 71. This was an assist-control mode at the rate of 14 with a tidal volume of 450 and FiO2 of 1 and a PEEP of 5. Since then, the PEEP has been increased up to 8, and his respiratory rate is up to 24. Current pulse ox on the monitor that 90%.. The patient has 2 mediastinal chest tubes and 1 pleural chest tube. Output from mediastinal chest tube has been around 450 mL and output from the left pleural chest tube is been around 130 mL since the patient up from the operating room. The patient is hemodynamically supported with Primacor at 0.25 mcg/kg per minute and the patient is also on nitroglycerin drip at 25 g 5 minutes. Patient has a cardiac index of 2.3. Pulmonary artery pressures of 61/31. He is on insulin drip running at 1.5 units an hour. He has an adequate urine output. Chest x-ray postop showed adequate expansion of both lungs. No this of pneumothorax. ET tube is in good location. [place] remains in a good location. The patient is an OG tube and 2 mediastinal and 1 pleural chest tube on of the mandible location there is no evidence of any pneumothorax. Cardiac rhythm is sinus. 11/05/2020, the patient remains on a mechanical ventilator. I was unable to wean him yesterday because of his limited oxygenation. Overnight, the patient was kept on a PEEP of 8 and his FiO2 is down to 90% and he has a tidal volume of 450 with a rate of 24. His peak airway pressure this morning is at 24. The morning blood gases showed a pH of 7.44 with a pCO2 of 41 and pO2 of 65. Based on that, I increased the PEEP up to 10 and 30. Blood gases showed a pH of 7.45 with a pCO2 of 40 and pO2 of 92. His FiO2 subsequently was found to 60%. This current pulse ox is 93%. He remains sedated with propofol and he is currently on 20 mcg/kg per minute and is well rested for now. He has 2 mediastinal chest tubes and a left pleural chest tube. Output from the mediastinal chest tube has been 10-20 mL's an hour and from the pleural chest tube is in order of 10-20 mL an hour. The patient's is hemodynamically stable. He is off milrinone for now. Cardiac index is in order of 2.4 with an output of 4.8. There has been impr ovement in the pulmonary artery pressures which is dropped down to 43/25. His CVP is currently at 8. His morning hemoglobin was at 7.5 and the patient was given a unit of packed RBC. He has a RHINA drain in his left lower extremity, output is bloody and minimal at this point in time. His cardiac rhythm is sinus. He is on an insulin drip running at 1.5 units an hour. He is off the nitroglycerin drip. He was given IV Solu Medrol yesterday regarding COPD and some increased bronchospasm and wheeze. He is also on bronchodilators. Chest x-ray from today shows adequate expansion of both lungs. There is a right upper lobe pulmonary nodule that was evident on the previous PET scan. Chronic no dularity and scarring in the left upper lobe also. No sizable pneumothorax. Minimal atelectatic changes and effusion the lung bases. Mediastinal chest tubes and left pleural chest tube of been in good location. Count is up from 82 down to 67. Also is following some simple commands and he can be aroused out of his sedation upon stimulation. 11/06/2020 him I'm seeing this patient for a follow-up. The patient remains intubated. We had some issues with his oxygenation and for that reason his extubation has been delayed. In summary, the patient remains on a mechanical ventilator. This morning he is an assist-control mode at the rate of 24 with a tidal volume of 450 and FiO2 of 60% with a PEEP of 12. Blood gases from today shows a pH of 7.46 orally 6 with a pCO2 of 38 and pO2 of 75. Chest x-ray showing some limited interstitial edema/pulmonary edema and the patient would benefit from some diuretics. His coronary artery pressures have been lower postop and is currently at the pressure of 51/26. CVP is at 7. Cardiac output is 5.3 with an index of 2.7. He is off milrinone. Is off the nitroglycerin drip. He is still on insulin drip at 1.5 units an hour. The output from the mediastinal tube has been 300 over the past 24 hours and output from the left pleural chest tube is 200 mL over the past 24 hours. Output remains somewhat bloody. No evidence of any air leak. No evidence of any pneumothorax on his chest x-ray. He remains sedated with propofol which is running at 30 mg/kg/m. He did have some loose liquidy bloody rest of the secretions which is being suctioned out of his orotracheal tube. Otherwise, his cardiac rhythm remains sinus. Occasional junctional rhythm was also noted. RHINA drain from his left lower extremity has been removed. On today's evaluation on 11/07/2020 patient is seen in the intensive care unit, sedated and intubated, on assist-control mode of ventilation, with a rate of 24, M is 450, FiO2 of 60% and PEEP of 12. This morning his blood gases showed pO2 of 76, pCO2 of 38, and pH is 7.46, today's chest x-ray has been reviewed showing no evidence of pneumothorax, mild scattered ulnar edema, and left lower lobe atelectasis. Patient received a dose of IV Lasix yesterday, however he is still in +200 mL fluid balance over the last 24 hours, he was given an additional dose of IV Lasix this morning per CT surgery. Yesterday an attempt was made to wean down FiO2 however patient's FiO2 down to 50%, however follow-up blood gas showed severe worsening of oxygenation, and pO2 of 46%. His PEEP was increased to 12, and FiO2 at 60%. In addition patient went into A. fib with RVR last night, he was started on amiodarone infusion which is currently infusing at 0.5 mg/m. He is on Diprivan at 40 mics per kilo per minute, lactated Ringer's at 50 ML per hour. Insulin at 3 units per hour. Currently patient remains in A. fib with a better controlled rate at 73 BPM, blood pressure is 122/54, PA pressures 61/31, CVP is 10, article output is 4.7, cardiac index is 2.4. Patient has one mediastinal and one mediastinal chest tube connected to left pleural chest tubes with minimal outputs overnight, no evidence of air leak noted. Epicardial wires are in place, grounded to the chest. Currently not on any anticoagulation, except for full dose aspirin 325 mg. Today's platelet count is 82, HIT antibodies have been sent and are pending right now, as today's blood work has been reviewed showing white blood cell, 12.7, hemoglobin is 7.9, actually lites are within normal limits, B1 is 21 creatinine 0.73. Patient did receive multip le blood products in the postoperative period, 3 units of packed red blood cells, 4 units of FFP, 1 unit of cryoprecipitate, and 1 unit of platelets. There has been no evidence of active bleeding, minimal output from the chest tubes. 11/08/2020, I'm seeing this patient for a follow-up. Unfortunately, the patient remains intubated on a mechanical ventilator and we have been able to wean this patient off the mechanical ventilator. The patient is postop day #4. His oxidation is become an ongoing issue. Unable to cut down the PEEP under 10 as the patient desaturates significantly. His chest x-ray showing some leg by the pulmonary infiltrates in the sputum is positive for Citrobacter and for that reason the patient was started on IV cefepime 2 g every 12 hours. Nevertheless, he has no leukocytosis or fever. Meanwhile, while being a mechanical ventilator, is an assist-control mode at the rate of 24 with a tidal volume of 450 and FiO2 of 70% with a PEEP of 10. Note that overnight, the patient desaturated and had to bring him up to 100% and The PEEP at 10. He was able to wean down as low as 70%. Subsequently, blood gases was done earlier this morning that showed a pH of 7.45 with a pCO2 of 40 and pO2 of 97 and this was on FiO2 of 80%. FiO2 was gradually wean down to 50% and a PEEP was brought down to 10. He was doing well and the subsequent blood gases showed a pH of 7.46 with a pCO2 of 40 and pO2 of 79. I was getting ready to wean this patient off the sedation try to assess his mental status. I dropped the PEEP down to 9 and subsequent his pulse ox dropped down to the low 80s. I to bring up the PEEP back to 10 lengthy is FiO2 back to 80%. Meanwhile, hemodynamically is doing well. His peak air pressures around 24 anesthetic pressures around 17. He is not any bronchospastic and wheezy. He is on a propofol drip running at 40 mg/kg/m. Is on lactated Ringer 20 mL's an hour. Cardiac index is at 2.5 with a output of 4.5. CVP is ranging between 4 and 6. Pulmonary artery pressures are 43/24. He is insulin drip is running at 4 units an hour. His cardiac rhythm is sinus. He did have a run of atrial fibrillation that was treated and the patient is back to normal sinus rhythm. The patient otherwise was started on enteral feeding for nutritional support and is currently on vital high protein at the rate of 40 mL an hour. Case has been discussed extensively with the cardiothoracic team. 11/09/2020, the patient is postop day #5. Remains intubated on a mechanical ventilator. Oxygenation has become an ongoing issue with the patient where we were not able to wean down his vent settings with a palpated oxygenation. Overnight, the patient was quite symptoms with a mechanical ventilator. I had to put him on a VC plus mode with tidal volume of 450, rate of 24, I time of 0.9 seconds, and currently is on a PEEP of 12 with an FiO2 of 70%. Chest x-ray showing bilateral fluffy pulmonary infiltrates consistent with pneumonia. His sputum cultures showing Citrobacter and the patient is ready covered with IV cefepime. No evidence of any pneumothorax. Left pleural chest tube will be pulled out today. Hemodynamically, the patient did have some hypotension overnight and he was given a bolus of 500 mL of fluid and currently is normotensive on no pressors. He is on a renal dose of dopamine and this was started by the cardiothoracic surgeon. The urine output is in order of 50-75 mL an hour. Pulmonary artery pressure 62/27. CVP is between 6 and 8. Cardiac output is 6.2 with an index of 3.1. Maintenance fluids are running at 20 mL an hour. Enteral feeding for nutritional support was started yesterday in the form of vital high protein and the patient is at the rate of 65 mL an hour. He is tolerating his enteral feeding for nutritional support. Cardiac rhythm is sinus. He did have a run of atrial fibrillation yesterday without a rapid ventricular control for around 5 hours. And he converted earlier this morning back to sinus. Patient is currently on propofol which is running at's an hour. The patient is adequately sedated. Is having some issues with pain. He was given oral [place]. Overnight he was also given Dilaudid for pain control which improved also synchrony with a mechanical ventilator. Overall condition remains critical. The patient has had difficulties in weaning off the respirator, probably due to development of a bilateral pneumonia in addition to some background COPD. Blood gases from today showed a pH of 7.4 with a pCO2 of 47 and pO2 of 64 and this was done and FiO2 of 70% with a PEEP of 12. Renal function stable at creatinine of 0.7. White cell count is up to 15.4 and the patient's hemoglobin is at 7.7. He continues to have a 6% bandemia. 11/10/2020, the patient is postop day #6 and the patient has failed to wean off the mechanical ventilator. The patient remains on assist control mode of ventilation, VC plus mode with a tidal volume of 450, FiO2 of 100% and a PEEP of 12. Morning blood gases showed a pH of 7.35 with a pCO2 53 and pO2 of 72. This was on FiO2 of 80%. The patient subsequently desaturated and had to be placed on on the percent. The peak airway pressure is currently at 27 with metastatic a pressure of 18. Remains on bronchodilators. He remains on steroids. Chest x-rays revealing bilateral pulmonary infiltrates, interstitial edema with areas of consolidation. A PICC line was also noted to be in a lace through the left upper extremity. The patient remains on IV cefepime. Chest tubes have been removed. He is sedated with propofol at the rate of 50 medical respiratory kilogram per minute. Overnight, the patient was also quite asynchronous and restless. Fentanyl was added which is currently running at 2.5 mcg/kg/h. He is also on lactated Ringer at 50 mL an hour. He is on a low dose norepinephrine infusion running at 0.03 mcg/kg per minute. Cardiac rhythm is sinus. He is receiving vital high protein boluses. It was noted that the patie nt had increased residual. The tube feeds have been On hold. Note that the patient underwent a bronchoscopy and the bronchioloalveolar lavage was also done yesterday and the results are still pending for now. The sputum analysis and culture grew Citrobacter and the patient is currently on IV cefepime. Is afebrile. His white cell count was rising and is currently at 20.7 with a stable hemoglobin of 7.7. Rest of the blood work and electrodes are all within normal limits. Sodium level is at 143. Potassium is at 4.7. The pro calcitonin level was at 0.18. 11/11/2020, the patient has postop day #7. The patient has a failed to wean off the mechanical ventilator. The patient is following coronary artery bypass surgery. He remains sedated with accommodation up of a fall and fentanyl. For now, performed is running at a dose of 50 mcg/kg per minute and fentanyl is running at 2 mcg/kg/h. This morning, the patient is quite symptoms mechanical ventilator. He is easily arousable and stimulated. He is an assist-control mode at the rate of 28 with a tidal volume of 450 and FiO2 of 60% with a PEEP of 14. Blood gas showed a pH of 7.4 with a pCO2 of 47 and pO2 of 71. The patient is hemodynamically stable on no pressors. Chest x-ray showing bilateral pulmonary infiltrates, essentially unchanged compared to yesterday. A bronchoscopy and the bronchioloalveolar lavage was done and the cultures were repeated showed initially gram-negative bacillus and later on it grew to be st enotrophomonas. The patient was being treated with IV cefepime. On today's evaluation, his white cell count is improved and is down to 14.5 with a stable hemoglobin of 7.4. His sodium level is at 146 with a chloride of 112 and the BUN of 36 with a creatinine of 0.8. The patient is in a sinus rhythm for now. He did have episodes of atrial fibrillation that was treated with IV bolus amiodarone and subsequent the patient converted. He is currently on a oral amiodarone and Lopressor through his orogastric tube. Chest tubes have been removed. The patient has a left brachial PICC line and the left radial arterial line. He is receiving enteral feeding for nutritional support at the rate of 20 mL's an hour. Lasix was given by cardiology. No other issues for now. As mentioned, he has failed to wean as the patient also has advanced COPD this was further [place] by development of bilateral pneumonia. on 11/12/2020 working seeing this patient for a follow-up. The patient is postop day #8. Still on a mechanical ventilator with failure to wean. His condition progressively has gotten worse over this past week with development of bilateral pneumonia. This morning, the patient is still on propofol running at 50 mcg/kg per minute and the fentanyl is running at 2 mcg/kg/h. The patient has been adequately sedated and remains on a mechanical ventilator assist control mode with a tidal volume of 450, FiO2 at 100%, PEEP is at extreme and tidal volume of 450 with a rate of 28. Adjustments in the PEEP was done earlier this morning as the patient was desaturating. The most recent blood gas on the current settings was a pH of 7.25 with a pCO2 of 67 and pO2 of 79. Peak airway pressures around 33. Static pressures around 29. Chest x-ray showing diffuse bilateral pulmonary infiltrates. The patient grew stenotrophomonas in the bronchioloalveolar lavage and the patient is currently on IV Merrem. No fever. White cell count is currently at 20.9. He is cardiac rhythm is been abnormal throughout the night. The patient went from normal sinus rhythm into A. fib fibrillation into an atrial tachycardia into paced rhythm. Currently is on amiodarone 400 twice a day and metoprolol 25 mg by mouth twice a day. His current rhythm is paced 100% AAI he does not seem to be tolerating H of fibrillation with RVR as the patient becomes quite hypotensive. Norepinephrine infusion was discontinued and the patient was switched to Huber-Synephrine drip which is currently running at 0.4 mcg/kg per minute. Output is adequate. Chest tubes are removed. He is receiving enteral feeding for nutritional support in the form of vital high protein at 51 mL an hour. No bowel movement activity yet. Urine output is in order of 50-70 mL an hour. Surgical wound site no fever. Surgical wound sites of dry clean and intact. The sternal wound looks good. He has some nonhealing wounds at the level of the chest tube sites. Chest tubes have been discontinued. On 11/13/2020, the patient remains sedated and is on a combination of propofol and fentanyl. Propofol is running at 50 mcg/kg per minute and fentanyl is running at 3 mcg/kg/h. His adequately sedated. He was having issues with desaturation throughout the day yesterday. His most recent ventilator setting includes an assist-control at the rate of 34 with a tidal volume of 400 and FiO2 of 70% with a PEEP of 20. His morning blood gases showed evidence of a pH of 7.29 with a pCO2 of 65 and a O2 of 90. This is not an accurate reflection as the patient is having significant amount of cough leak in this distribution fi xed and the blood gases to be repeated. Meanwhile, the patient's bronchioloalveolar lavage of cultures a combination of Citrobacter and stenotrophomonas and the patient is currently on IV Merrem. The white cell count is currently up to 23. He is afebrile. Rest or secretions are scant. Chest x-ray showing diffuse but the pulmonary infiltrates consistent with pneumonia. Hemodynamically, he is currently paced at the rate of 70. He was having issues with cardiac rhythm with episodes of A. fib, bradycardia, and ultimately was given amiodarone, he was given digoxin and currently is on oral amiodarone at a dose of 400 mg by mouth twice a day and Lopressor the dose of 25 mg twice a day. His current rhythmat the rate of 70, AAI . He is on Huber- Synephrine which is running at a dose of 0.7 mcg/kg per minute. Urine output is adequate at 50 mL an hour. Fluid balance over the past 24 hours is positive approximately 2.1 L positive. He does have some increased edema in upper extremities bilaterally. He is receiving enteral feeding for nutritional support and he is on vital high protein at the rate of 50 mL an hour. Last bowel movement was on 11/10/2020. He is currently on Reglan. Surgical wound site is dry clean and intact. The chest tube sites are healing. Noted the chest tube sites are all out. The patient is also on bronchodilators. Is on IV Solu-Medrol 40 mg every 24 hours. He has failed to wean postop and currently is postop day #9. Objective - Vital Signs Vital signs: Vital Signs Temp 97.3 F L 11/13/20 04:00 Pulse 70 11/13/20 07:24 Resp 34 H 11/13/20 07:00 BP 106/52 11/11/20 22:00 Pulse Ox 95 11/13/20 07:00 Intake & Output 11/12/20 11/13/20 11/13/20 18:59 06:59 18:59 Intake Total 2033.248 1558.314 73 Output Total 645 785 35 Balance 1388.248 773.314 38 Weight 100 kg Intake: IV 456 405.9 23 Lactated Ringers 1,000 ml 220 270 20 @ 20 mls/hr IV .Q24H CINDY Rx#:[id number] Meropenem 1 gm In Sodium 200 99.9 Chloride 0.9% 100 ml @ 33 .3 mls/hr IVPB Q8HR CINDY Rx#:[id number] Pressure Bag 36 36 3 Intake, IV Titration 937.248 865.414 Amount Insulin Regular 100 unit 25.923 In Sodium Chloride 0.9% 100 ml @ Per Protocol IV .Q0M CINDY Rx#:[id number] Phenylephrine 40 mg In 361.325 90.110 Sodium Chloride 0.9% 250 ml @ 0.5 MCG/KG/MIN 18. 498 mls/hr IV .[id number] [facility] Rx#:[id number] fentaNYL (PF) 2,500 mcg 250 475.304 In Sodium Chloride 0.9% 200 ml @ Per Protocol IV .Q0M [facility]INDY Rx#:[id number] propofoL 1,000 mg In 300 300 Empty Bag 1 bag @ Titrate IV .Q0M CINDY Rx#: [id number] Tube Feeding 550 257 50 Other 90 30 Output: Urine 645 785 35 Other: Voiding Method Indwelling Catheter Indwelling Catheter ABP, PAP, CO, CI - Last Documented Arterial Blood Pressure 106/44 Pulmonary Artery Pressure 69/37 Cardiac Output 5.2 Cardiac Index 2.6 - Exam Gen. appearance the patient sedated, comfortable not in acute respiratory distress orogastric and orotracheal tube are both in place. The patient is quite successful mechanical ventilator. Head exam was generally normal. There was no scleral icterus or corneal arcus. Mucous membranes were moist. Neck was supple and without jugular venous distension, thyromegaly, or carotid bruits. Carotids were easily palpable bilaterally. There was no adenopathy. Lungs sounds are equal and symmetrical bilaterally. Chest tubes have been removed. Breath sounds in general white diminished bilaterally especially in the lung bases. No wheezes. No rhonchi. Cardiac exam revealed the PMI to be normally situated and sized. The rhythm was regular and no extrasystoles were noted during several minutes of auscultation. The first and second heart sounds were normal and physiologic splitting of the second heart sound was noted. There were no murmurs, rubs, clicks, or gallops. Sternum stable clean and intact. Abdominal exam revealed normal bowel sounds. The abdomen was soft, non-tender, and without masses, organomegaly, or appreciable enlargement of the abdominal aorta. Extremities. Pulses are equal and symmetrical diminished. Extremities are cold. No cyanosis or clubbing. Surgical wound site is dry clean and intact. The patient has a left brachial PICC line in the left radial arterial line. Neurologically sedated, pupils are equal and reactive to light. Patient is currently on a combination of fentanyl and propofol or for sedation. - Labs CBC & Chem 7: 11/13/20 03:53 11/13/20 03:53 Labs: Abnormal Lab Results - Last 24 Hours (Table) 11/12/20 11/12/20 11/12/20 Range/Units 08:10 09:17 09:53 WBC (3.8-10.6) k/uL RBC (4.30-5.90) m/uL Hgb (13.0-17.5) gm/dL Hct (39.0-53.0) % MCV (80.0-100.0) fL RDW (11.5-15.5) % Neutrophils # (Manual) (1.3-7.7) k/uL Lymphocytes # (Manual) (1.0-4.8) k/uL Monocytes # (Manual) (0-1.0) k/uL ABG pH 7.26 L 7.26 L 7.33 L (7.35-7.45) ABG pCO2 65 H 65 H 62 H (35-45) mmHg ABG pO2 51 L* 126 H (83-108) mmHg ABG HCO3 29 H 29 H 33 H (21-25) mmol/L ABG Total CO2 31 H 31 H 35 H (19-24) mmol/L ABG O2 Saturation 97.1 H 82.0 L 99.0 H (94-97) % Sodium (137-145) mmol/L Potassium (3.5-5.1) mmol/L Chloride (98-107) mmol/L BUN (9-20) mg/dL Creatinine (0.66-1.25) mg/dL Glucose (74-99) mg/dL POC Glucose (mg/dL) (75-99) mg/dL Calcium (8.4-10.2) mg/dL Magnesium (1.6-2.3) mg/dL Total Protein (6.3-8.2) g/dL Albumin (3.5-5.0) g/dL 11/12/20 11/12/20 11/12/20 Range/Units 11:35 14:00 15:49 WBC (3.8-10.6) k/uL RBC (4.30-5.90) m/uL Hgb (13.0-17.5) gm/dL Hct (39.0-53.0) % MCV (80.0-100.0) fL RDW (11.5-15.5) % Neutrophils # (Manual) (1.3-7.7) k/uL Lymphocytes # (Manual) (1.0-4.8) k/uL Monocytes # (Manual) (0-1.0) k/uL ABG pH 7.33 L (7.35-7.45) ABG pCO2 58 H (35-45) mmHg ABG pO2 302 H (83-108) mmHg ABG HCO3 31 H (21-25) mmol/L ABG Total CO2 32 H (19-24) mmol/L ABG O2 Saturation 100.0 H (94-97) % Sodium (137-145) mmol/L Potassium (3.5-5.1) mmol/L Chloride (98-107) mmol/L BUN (9-20) mg/dL Creatinine (0.66-1.25) mg/dL Glucose (74-99) mg/dL POC Glucose (mg/dL) 134 H 132 H (75-99) mg/dL Calcium (8.4-10.2) mg/dL Magnesium (1.6-2.3) mg/dL Total Protein (6.3-8.2) g/dL Albumin (3.5-5.0) g/dL 11/12/20 11/12/20 11/13/20 Range/Units 19:56 23:28 03:53 WBC 23.0 H (3.8-10.6) k/uL RBC 2.43 L (4.30-5.90) m/uL Hgb 8.0 L (13.0-17.5) gm/dL Hct 25.2 L (39.0-53.0) % MCV 103.4 H (80.0-100.0) fL RDW 18.0 H (11.5-15.5) % Neutrophils # (Manual) 21.16 H (1.3-7.7) k/uL Lymphocytes # (Manual) 0.69 L (1.0-4.8) k/uL Monocytes # (Manual) 1.15 H (0-1.0) k/uL ABG pH (7.35-7.45) ABG pCO2 (35-45) mmHg ABG pO2 (83-108) mmHg ABG HCO3 (21-25) mmol/L ABG Total CO2 (19-24) mmol/L ABG O2 Saturation (94-97) % Sodium (137-145) mmol/L Potassium (3.5-5.1) mmol/L Chloride (98-107) mmol/L BUN (9-20) mg/dL Creatinine (0.66-1.25) mg/dL Glucose (74-99) mg/dL POC Glucose (mg/dL) 154 H 138 H (75-99) mg/dL Calcium (8.4-10.2) mg/dL Magnesium (1.6-2.3) mg/dL Total Protein (6.3-8.2) g/dL Albumin (3.5-5.0) g/dL 11/13/20 11/13/20 11/13/20 Range/Units 03:53 03:53 05:12 WBC (3.8-10.6) k/uL RBC (4.30-5.90) m/uL Hgb (13.0-17.5) gm/dL Hct (39.0-53.0) % MCV (80.0-100.0) fL RDW (11.5-15.5) % Neutrophils # (Manual) (1.3-7.7) k/uL Lymphocytes # (Manual) (1.0-4.8) k/uL Monocytes # (Manual) (0-1.0) k/uL ABG pH 7.29 L (7.35-7.45) ABG pCO2 65 H (35-45) mmHg ABG pO2 (83-108) mmHg ABG HCO3 31 H (21-25) mmol/L ABG Total CO2 33 H (19-24) mmol/L ABG O2 Saturation (94-97) % Sodium 147 H (137-145) mmol/L Potassium 5.3 H (3.5-5.1) mmol/L Chloride 110 H (98-107) mmol/L BUN 69 H (9-20) mg/dL Creatinine 1.32 H (0.66-1.25) mg/dL Glucose 117 H (74-99) mg/dL POC Glucose (mg/dL) 126 H (75-99) mg/dL Calcium 7.9 L (8.4-10.2) mg/dL Magnesium 2.9 H (1.6-2.3) mg/dL Total Protein 5.0 L (6.3-8.2) g/dL Albumin 2.5 L (3.5-5.0) g/dL Microbiology - Last 24 Hours (Table) 11/10/20 12:16 Blood Culture - Preliminary Blood No Growth after 48 hours 11/10/20 12:12 Blood Culture - Preliminary Blood No Growth after 48 hours 11/09/20 10:00 Gram Stain - Final Bronchial Washings - Right Bronchial Washings Culture - Final Stenotrophomonas maltophilia Citrobacter freundii Assessment and Plan Plan: 1 multivessel coronary artery disease, symptomatic, post three-vessel bypass surgery with venous graft and aortic valve replacement. The patient is postop day #9. The patient has failed to wean due to pulmonary complications of COPD and pneumonia. He had for now, the patient remains intubated on mechanical ventilator. The patient is running on a low-dose Huber-Synephrine. . Morning rhythm is paced AAI. His current rate is at 70.. No major significant events overnight. The patient remains intubated on a mechanical ventilator with bilateral pneumonia. 2 acute hypoxic respiratory failure secondary to advanced COPD and underlying bilateral pneumonia. The patient developed gram-negative pneumonia, possibly ventilator associated versus hospital-acquired. The patient initially grew pseudomonas aeruginosa and subsequent bronchoscopy and bronchial alveolar lavage showed stenotrophomonas and Citrobacter.. The patient will placed on IV Merrem. CXR is still showing diffuse bilateral pulmonary infiltrates. White cell count of 20.9. Oxygenation is borderline on a PEEP of 20 with an FiO2 of 70. He also has some respiratory acidosis. 3 coronary artery disease with previous stenting of the RCA 4 COPD 5 history of extensive right upper lobe pneumonia, history of 6 history of right upper lobe pulmonary nodule identified on a CAT scan of the chest with an average PET scan obesity workup postop with a higher suspicious for malignancy based on the PET scan findings 7 hypertension 8 hyperlipidemia 9 degenerative arthritis. 10 paroxysmal atrial fibrillation, and expected outcome of surgery, current rhythm is paced, AAI, 70 11 BOSSMAN, nonoliguric , creatinine is 1.3 Plan Keep the PEEP at 20 and the FiO2 of 70% Recheck her blood gases after fixing the air leak. Recheck pro-calcitonin level to evaluate the trend Continue IV Merrem Keep the patient sedated with a combination of propofol and fentanyl Management of pressors and hemodynamics per cardiothoracic surgery. Continue bronchodilators and steroids , with further weaning off the steroids within the next 24 hours. No active bronchospasm and wheezing. I would suggest IV Solu-Medrol to 40 mg every 24 hours. All of the chest tubes have been removed Continue Levemir 24 U insulin and sliding scale coverage Enteral feeding has been initiated Keep the patient on metoprolol 25 mg by mouth twice a day and amiodarone 400 mg by mouth twice a day regarding approximately atrial fibrillation. We'll continue to follow. possible tracheostomy early next week if he continues to failed to wean off the mechanical ventilator. Critical care evaluation was on a more than 30 minutes. Time with Patient: Greater than 30
[2020-11-13] MEDS: HEPARIN SODIUM,PORCINE/PF 5,000 UNIT/0.5 ML SYRINGE SQ SCH ×3 (08:19→23:53)
[2020-11-13] MEDS: MEROPENEM 1 GM in SODIUM CHLORIDE 0.9% 100 ML IVPB SCH (08:19)
[2020-11-13] MEDS: PANTOPRAZOLE 40 MG/10 ML VIAL IVP SCH (08:19)
[2020-11-13] MEDS: INSULIN DETEMIR (LEVEMIR) 100 UNIT/ML SYR SQ SCH (08:19)
[2020-11-13] MEDS: methylPREDNISolone SOD SUCCI 40 MG/ML 1 ML VIAL IV SCH (08:20)
[2020-11-13] MEDS: CHLORHEXIDINE GLUCONATE 15 ML CUP MUCOUS MEM SCH ×2 (08:20→20:01)
[2020-11-13] MEDS: MULTIVITAMINS, THERA 1 EACH TAB PO SCH (08:20)
[2020-11-13] MEDS: ASCORBIC ACID 500 MG TAB PO SCH (08:20)
[2020-11-13] MEDS: ASPIRIN 325 MG TAB PO SCH (08:20)
[2020-11-13] MEDS: AMIODARONE 200 MG TAB PO SCH ×2 (08:20→20:02)
[2020-11-13] MEDS: METOPROLOL TARTRATE 25 MG TAB PO SCH ×2 (08:21→20:02)
[2020-11-13] MEDS: FERROUS SULFATE ORAL ELIXIR 300 MG/5 ML CUP OG-TUBE SCH ×2 (08:22→20:01)
[2020-11-13] MEDS: bisacodyL 10 MG SUPP RECTAL PRN (08:36)
[2020-11-13 08:37] LABS: ABG Base Excess 4.2 mmol/L; ABG HCO3 31 mmol/L (21-25); ABG Oxygen Saturation 95.5 % (94-97); ABG PCO2 69 mmHg (35-45); ABG PH 7.27 (7.35-7.45); ABG PO2 81 mmHg (83-108); ABG TCO2 33 mmol/L (19-24)
[2020-11-13 08:43] LABS: Glucose,Whole Blood 108 mg/dL (75-99)
--- NOTE | 2020-11-13 09:16 | P.PN ---
Subjective Progress Note Date: 11/13/20 Principal diagnosis: Severe triple vessel coronary artery disease, moderate to severe aortic valve stenosis, pulmonary hypertension and right upper lobe pulmonary nodule, suspicious for malignancy based on PET scan findings. Past medical history significant for hypertension, hyperlipidemia, right subclavian artery stenosis, coronary artery disease with previous stenting of the right coronary artery, history of right upper lobe pneumonia, COPD with preoperative FEV1 showing a predicted value of 66%, DLCO 18% of predicted value and remote history of nicotine dependence in which he quit smoking around 25 years ago. POD #9 aortic valve replacement with a 27 mm De Le[place] Inspiris bioprosthetic aortic valve, coronary artery bypass grafting 3 with a reverse saphenous vein graft off the aorta to the circumflex coronary artery, the left anterior descending coronary artery and the posterior descending coronary artery with bilateral lower extremity greater saphenous vein endoscopic harvesting. Clip ligation of the left atrial appendage with a 35 mm Atriclip, intraoperative transesophageal echocardiogram and graft flow measurement using the oroecoim system. Postoperative acute blood loss anemia and thrombocytopenia, expected given hemodilution and cardiopulmonary bypass. Prolonged mechanical ventilation, secondary acute hypoxic respiratory failure with ongoing hypoxemia, preoperative FEV1 66% of predicted value and DLCO 18% of predicted value. Paroxysmal atrial fibrillation, a known common occurrence after cardiac surgery Postoperative pneumonia with sputum culture positive for Citrobacter freundii, unexpected, bronchial washings positive for Citrobacter freundii and Stenotrophomonas maltophilia The patient remains laying in the intensive care unit on sedation with propofol and fentanyl with mechanical ventilation. Remains afebrile, white blood cell co unt 23 this morning, was 20.9 yesterday. Remains on IV Solu-Medrol, meropenem added by Dr. Espino and cefepime/vancomyocin discontinued, ID consult ordedred. Did have an episode of rapid atrial fibrillation last night, patient becomes very hypotensive with any tachycardia. Was given IV digoxin, currently atrial paced at 70 BPM. Remains on oral amio and lopressor. Remains on IV neosynephrine for blood pressure support. Left brachial PICC line, left radial arterial line remain present. Currently receiving tube feeding at its 50 mL per hour. He has received Lasix for the last 4 days, BUN 69, creat 1.32 this morning. Ventilator settings adjusted by Dr. Espino, currently on 70% FiO2 with 20 of PEEP. Objective - Vital Signs Vital signs: Vital Signs Temp 97.7 F 08/29/21 08:00 Pulse 70 11/13/20 09:00 Resp 34 H 11/13/20 09:00 BP 106/52 11/11/20 22:00 Pulse Ox 96 11/13/20 09:00 Intake & Output 11/12/20 11/13/20 11/13/20 18:59 06:59 18:59 Intake Total 2033.248 1558.314 459 Output Total 645 785 100 Balance 1388.248 773.314 359 Weight 100 kg Intake: IV 456 405.9 169 Lactated Ringers 1,000 ml 220 270 60 @ 20 mls/hr IV .Q24H CINDY Rx#:[id number] Meropenem 1 gm In Sodium 200 99.9 100 Chloride 0.9% 100 ml @ 33 .3 mls/hr IVPB Q8HR CINDY Rx#:[id number] Pressure Bag 36 36 9 Intake, IV Titration 937.248 865.414 Amount Insulin Regular 100 unit 25.923 In Sodium Chloride 0.9% 100 ml @ Per Protocol IV .Q0M CINDY Rx#:[id number] Phenylephrine 40 mg In 361.325 90.110 Sodium Chloride 0.9% 250 ml @ 0.5 MCG/KG/MIN 18. 498 mls/hr IV .[id number] CINDY Rx#:[id number] fentaNYL (PF) 2,500 mcg 250 475.304 In Sodium Chloride 0.9% 200 ml @ Per Protocol IV .Q0M CINDY Rx#:[id number] propofoL 1,000 mg In 300 300 Empty Bag 1 bag @ Titrate IV .Q0M CINDY Rx#: [id number] Tube Feeding 550 257 200 Other 90 30 90 Output: Urine 645 785 100 Other: Voiding Method Indwelling Catheter Indwelling Catheter ABP, PAP, CO, CI - Last Documented Arterial Blood Pressure 117/44 Pulmonary Artery Pressure 69/37 Cardiac Output 5.2 Cardiac Index 2.6 - Exam CONSTITUTIONAL: Remains sedated on mechanical ventilation RESPIRATORY: Lungs sounds diminished bilaterally with coarse breath sounds in the bases. Respirations even, nonlabored on mechanical ventilation. Currently on assist control mode with FiO2 70%, PEEP 20, tidal volume 400, respiratory rate 34. 8.5 ET tube present, 23 at the lip CARDIOVASCULAR: S1, S2 present. Regular rate and rhythm, atrially paced rate at 70 bpm. Sternum stable. Palpable peripheral pulses bilaterally. Generalized edema present. Heart hugger, antiembolism stockings, SCDs present. GASTROINTESTINAL: Abdomen soft, nontender, nondistended. Hypoactive bowel sounds present. Tube feeding infusing at 50 mL per hour. Positive bowel movement 11/09 GENITOURINARY: Espinal present draining clear, yellow urine. Output overnight 40-75 mL per hour, 1430 mL in the last 24 hours INTEGUMENTARY: Skin is warm and dry. Anterior chest incision well approximated and covered with dry intact dressing. Left lower extremity EVH site well approximated without redness or drainage PSYCHIATRIC: Sedated on mechanical ventilation. Per nursing off sedation patient will raise his eyebrows but does not follow much other commands INVASIVE LINES AND TUBES: A/V epicardial pacemaker wires present, AAI mode with rate 70 bpm. Left brachial PICC line, left radial arterial line present. - Allied health notes Allied health notes reviewed: nursing - Labs CBC & Chem 7: 11/13/20 03:53 11/13/20 03:53 Labs: Abnormal Lab Results - Last 24 Hours (Table) 11/12/20 11/12/20 11/12/20 Range/Units 09:17 09:53 11:35 WBC (3.8-10.6) k/uL RBC (4.30-5.90) m/uL Hgb (13.0-17.5) gm/dL Hct (39.0-53.0) % MCV (80.0-100.0) fL RDW (11.5-15.5) % Neutrophils # (Manual) (1.3-7.7) k/uL Lymphocytes # (Manual) (1.0-4.8) k/uL Monocytes # (Manual) (0-1.0) k/uL ABG pH 7.26 L 7.33 L (7.35-7.45) ABG pCO2 65 H 62 H (35-45) mmHg ABG pO2 51 L* 126 H (83-108) mmHg ABG HCO3 29 H 33 H (21-25) mmol/L ABG Total CO2 31 H 35 H (19-24) mmol/L ABG O2 Saturation 82.0 L 99.0 H (94-97) % Sodium (137-145) mmol/L Potassium (3.5-5.1) mmol/L Chloride (98-107) mmol/L BUN (9-20) mg/dL Creatinine (0.66-1.25) mg/dL Glucose (74-99) mg/dL POC Glucose (mg/dL) 134 H (75-99) mg/dL Calcium (8.4-10.2) mg/dL Magnesium (1.6-2.3) mg/dL Total Protein (6.3-8.2) g/dL Albumin (3.5-5.0) g/dL 11/12/20 11/12/20 11/12/20 Range/Units 14:00 15:49 19:56 WBC (3.8-10.6) k/uL RBC (4.30-5.90) m/uL Hgb (13.0-17.5) gm/dL Hct (39.0-53.0) % MCV (80.0-100.0) fL RDW (11.5-15.5) % Neutrophils # (Manual) (1.3-7.7) k/uL Lymphocytes # (Manual) (1.0-4.8) k/uL Monocytes # (Manual) (0-1.0) k/uL ABG pH 7.33 L (7.35-7.45) ABG pCO2 58 H (35-45) mmHg ABG pO2 302 H (83-108) mmHg ABG HCO3 31 H (21-25) mmol/L ABG Total CO2 32 H (19-24) mmol/L ABG O2 Saturation 100.0 H (94-97) % Sodium (137-145) mmol/L Potassium (3.5-5.1) mmol/L Chloride (98-107) mmol/L BUN (9-20) mg/dL Creatinine (0.66-1.25) mg/dL Glucose (74-99) mg/dL POC Glucose (mg/dL) 132 H 154 H (75-99) mg/dL Calcium (8.4-10.2) mg/dL Magnesium (1.6-2.3) mg/dL Total Protein (6.3-8.2) g/dL Albumin (3.5-5.0) g/dL 11/12/20 11/13/20 11/13/20 Range/Units 23:28 03:53 03:53 WBC 23.0 H (3.8-10.6) k/uL RBC 2.43 L (4.30-5.90) m/uL Hgb 8.0 L (13.0-17.5) gm/dL Hct 25.2 L (39.0-53.0) % MCV 103.4 H (80.0-100.0) fL RDW 18.0 H (11.5-15.5) % Neutrophils # (Manual) 21.16 H (1.3-7.7) k/uL Lymphocytes # (Manual) 0.69 L (1.0-4.8) k/uL Monocytes # (Manual) 1.15 H (0-1.0) k/uL ABG pH (7.35-7.45) ABG pCO2 (35-45) mmHg ABG pO2 (83-108) mmHg ABG HCO3 (21-25) mmol/L ABG Total CO2 (19-24) mmol/L ABG O2 Saturation (94-97) % Sodium 147 H (137-145) mmol/L Potassium 5.3 H (3.5-5.1) mmol/L Chloride 110 H (98-107) mmol/L BUN 69 H (9-20) mg/dL Creatinine 1.32 H (0.66-1.25) mg/dL Glucose 117 H (74-99) mg/dL POC Glucose (mg/dL) 138 H (75-99) mg/dL Calcium 7.9 L (8.4-10.2) mg/dL Magnesium 2.9 H (1.6-2.3) mg/dL Total Protein 5.0 L (6.3-8.2) g/dL Albumin 2.5 L (3.5-5.0) g/dL 11/13/20 11/13/20 11/13/20 Range/Units 03:53 05:12 08:32 WBC (3.8-10.6) k/uL RBC (4.30-5.90) m/uL Hgb (13.0-17.5) gm/dL Hct (39.0-53.0) % MCV (80.0-100.0) fL RDW (11.5-15.5) % Neutrophils # (Manual) (1.3-7.7) k/uL Lymphocytes # (Manual) (1.0-4.8) k/uL Monocytes # (Manual) (0-1.0) k/uL ABG pH 7.29 L 7.27 L (7.35-7.45) ABG pCO2 65 H 69 H (35-45) mmHg ABG pO2 81 L (83-108) mmHg ABG HCO3 31 H 31 H (21-25) mmol/L ABG Total CO2 33 H 33 H (19-24) mmol/L ABG O2 Saturation (94-97) % Sodium (137-145) mmol/L Potassium (3.5-5.1) mmol/L Chloride (98-107) mmol/L BUN (9-20) mg/dL Creatinine (0.66-1.25) mg/dL Glucose (74-99) mg/dL POC Glucose (mg/dL) 126 H (75-99) mg/dL Calcium (8.4-10.2) mg/dL Magnesium (1.6-2.3) mg/dL Total Protein (6.3-8.2) g/dL Albumin (3.5-5.0) g/dL 11/13/20 Range/Units 08:34 WBC (3.8-10.6) k/uL RBC (4.30-5.90) m/uL Hgb (13.0-17.5) gm/dL Hct (39.0-53.0) % MCV (80.0-100.0) fL RDW (11.5-15.5) % Neutrophils # (Manual) (1.3-7.7) k/uL Lymphocytes # (Manual) (1.0-4.8) k/uL Monocytes # (Manual) (0-1.0) k/uL ABG pH (7.35-7.45) ABG pCO2 (35-45) mmHg ABG pO2 (83-108) mmHg ABG HCO3 (21-25) mmol/L ABG Total CO2 (19-24) mmol/L ABG O2 Saturation (94-97) % Sodium (137-145) mmol/L Potassium (3.5-5.1) mmol/L Chloride (98-107) mmol/L BUN (9-20) mg/dL Creatinine (0.66-1.25) mg/dL Glucose (74-99) mg/dL POC Glucose (mg/dL) 108 H (75-99) mg/dL Calcium (8.4-10.2) mg/dL Magnesium (1.6-2.3) mg/dL Total Protein (6.3-8.2) g/dL Albumin (3.5-5.0) g/dL Microbiology - Last 24 Hours (Table) 11/10/20 12:16 Blood Culture - Preliminary Blood No Growth after 48 hours 11/10/20 12:12 Blood Culture - Preliminary Blood No Growth after 48 hours 11/09/20 10:00 Gram Stain - Final Bronchial Washings - Right Bronchial Washings Culture - Final Stenotrophomonas maltophilia Citrobacter freundii - Imaging and Cardiology Chest x-ray: report reviewed, image reviewed Assessment and Plan Assessment: 1. Severe triple-vessel coronary artery disease, status post three-vessel coronary artery bypass grafting surgery 2. Moderate to severe aortic valve stenosis, status post aortic valve repl acement with a #27 mm De León Inspiris bioprosthetic aortic valve 3. Pulmonary hypertension 4. Known right upper lobe pulmonary nodule, suspicious for malignancy based on PET scan findings 5. COPD with a preoperative FEV1 66% of predicted value and a DLCO 18% of predicted value 6. Known right subclavian artery stenosis 7. History of Hypertension 8. Hyperlipidemia, treated 9. History of coronary artery disease with previous stenting of the right coronary artery 10. 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 Remote history of nicotine dependence, quit smoking over 25 years ago 12. Postoperative anemia and thrombocytopenia, expected given hemodilution and cardiopulmonary bypass 13. Prolonged mechanical ventilator support, secondary to acute respiratory failure with ongoing hypoxemia 14. Paroxysmal atrial fibrillation, a known common occurrence after cardiac surgery, currently in normal sinus rhythm 15. Pneumonia, sputum culture positive for Citrobacter freundii, Stenotrophomonas maltophilia Plan: 1. Continue to optimize medical management with aspirin, statin, zetia, and beta paul. Wean Huber as tolerated 2. Continue amio for afib prophylaxis. No anticoagulation at this time 3. Continue meropenem, IV steroids per pulmonology recommendations. Blood cultures ordered, negative x 48 hours. ID consulted 4. Patient will need tracheostomy and PEG tube placement once stable. Will discuss with family 5. Continue to monitor daily labs and chest x-rays. Electrolyte replacement per protocol. 6. Pain control with current medication regimen, continue fentanyl 7. GI/DVT prophylaxis 8. Insulin management per primary care service. The patient is not diabetic with preoperative hemoglobin A1c 5.4%, needs tight blood sugar control to promote sternal union and prevent infection. 9. Keep left radial arterial line in place. 10. Continue Espinal catheter for another for strict accurate intake and output. Continue to monitor daily weights. 11. Continue atrial and ventricular pacemaker wires with pacemaker generator to a AAI rate of 70 BPM. 12. Continue tube feedings as tolerated 13. Will order midline placement for tomorrow as peripheral IVs are dated and patient still needs multiple access site due to pressors, abt, sedation, pain control 14. More recommendations to follow Time with Patient: Greater than 30
[2020-11-13 10:53] LABS: ABG Base Excess 3.5 mmol/L; ABG HCO3 31 mmol/L (21-25); ABG Oxygen Saturation 92.4 % (94-97); ABG PCO2 70 mmHg (35-45); ABG PH 7.25 (7.35-7.45); ABG PO2 70 mmHg (83-108); ABG TCO2 33 mmol/L (19-24)
[2020-11-13] MEDS ORDERED: DEXTROSE 5% IN WATER 1,000 ML IV ONE (11:02)
[2020-11-13] MEDS ORDERED: DIGOXIN 250 MCG/ML 2 ML AMP IVP SCH (11:15)
[2020-11-13 11:57] LABS: Glucose,Whole Blood 123 mg/dL (75-99)
--- NOTE | 2020-11-13 12:06 | P.PN ---
Subjective Progress Note Date: 11/13/20 This is a 75-year-old gentleman with history of severe aortic stenosis who is status post aortic valve replacement with bioprosthetic valve and CAD status post bypass surgery. Patient has postoperative respiratory failure and remains intubated on mechanical ventilator. Currently with a PEEP of 24 and FiO2 100%. Continues to have significant issues with hypoxia. Recent repeat echocardiogram showed preserved LV systolic function. Underlying bradycardia requiring external pacemaker, currently pacing 100%. Continues to have intermittent episodes of paroxysmal atrial fibrillation with rapid ventricular response requiring amiodarone boluses amiodarone has been increased to 400 mg by mouth twice a day. Patient had a few episodes over the last 24 hours lasting about 30 minutes at a time of paroxysmal atrial fibrillation. Vital signs this morning showed blood pressure 117/49 with an oxygen saturation of 95% on 100% FiO2.. He's been afebrile. 11/13/2020 Patient was seen and examined. He remains in ICU, sedated, intubated on mechanical ventilator. Patient had more episodes of paroxysmal atrial fibrillation last night and received digoxin. Since then he has maintaining sinus mechanism. The plan is for placement of a tracheostomy tube and PEG tube early next week if patient remains stable. Patient remains 100% paced rate of 70. Objective - Vital Signs Vital signs: Vital Signs Temp 97.7 F 11/13/20 08:00 Pulse 70 11/13/20 11:32 Resp 34 H 11/13/20 11:00 BP 106/52 11/11/20 22:00 Pulse Ox 94 L 11/13/20 11:00 Intake & Output 11/12/20 11/13/20 11/13/20 18:59 06:59 18:59 Intake Total 2033.248 9955.821 7230.082 Output Total 645 785 165 Balance 1388.248 607.691 3112.082 Weight 100 kg Intake: IV 456 405.9 195 Lactated Ringers 1,000 ml 220 270 80 @ 20 mls/hr IV .Q24H [facility] Rx#:[id number] Meropenem 1 gm In Sodium 200 99.9 100 Chloride 0.9% 100 ml @ 33 .3 mls/hr IVPB Q8HR [facility] Rx#:[id number] Pressure Bag 36 36 15 Intake, IV Titration 937.248 865.414 584.082 Amount Dextrose 5% in Water 1, 20 000 ml @ 20 mls/hr IV . Q24H [facility] Rx#:[id number] Insulin Regular 100 unit 25.923 In Sodium Chloride 0.9% 100 ml @ Per Protocol IV .Q0M [facility] Rx#:[id number] Phenylephrine 40 mg In 361.325 90.110 214.082 Sodium Chloride 0.9% 250 ml @ 0.5 MCG/KG/MIN 18. 498 mls/hr IV .[id number] [facility] Rx#:[id number] fentaNYL (PF) 2,500 mcg 250 475.304 250 In Sodium Chloride 0.9% 200 ml @ Per Protocol IV .Q0M [facility] Rx#:[id number] propofoL 1,000 mg In 300 300 100 Empty Bag 1 bag @ Titrate IV .Q0M [facility] Rx#: [id number] Tube Feeding 550 257 300 Other 90 30 90 Output: Urine 645 785 165 Other: Voiding Method Indwelling Catheter Indwelling Catheter Indwelling Catheter ABP, PAP, CO, CI - Last Documented Arterial Blood Pressure 103/48 Pulmonary Artery Pressure 69/37 Cardiac Output 5.2 Cardiac Index 2.6 - Exam PHYSICAL EXAMINATION: HEENT: Head is atraumatic, normocephalic. Neck is supple. There is no el evated jugular venous pressure. HEART EXAMINATION: Heart sounds regular, S1 and S2 normal.. CHEST EXAMINATION: Lungs reveal diminished air entry bilaterally. ABDOMEN: Soft, nontender. Bowel sounds are heard. No organomegaly noted. EXTREMITIES: 2+ peripheral pulses with no evidence of peripheral edema and no calf tenderness noted. NEUROLOGIC patient is sedated and intubated. . - Labs CBC & Chem 7: 11/13/20 03:53 11/13/20 03:53 Labs: Abnormal Lab Results - Last 24 Hours (Table) 11/12/20 11/12/20 11/12/20 Range/Units 14:00 15:49 19:56 WBC (3.8-10.6) k/uL RBC (4.30-5.90) m/uL Hgb (13.0-17.5) gm/dL Hct (39.0-53.0) % MCV (80.0-100.0) fL RDW (11.5-15.5) % Neutrophils # (Manual) (1.3-7.7) k/uL Lymphocytes # (Manual) (1.0-4.8) k/uL Monocytes # (Manual) (0-1.0) k/uL ABG pH 7.33 L (7.35-7.45) ABG pCO2 58 H (35-45) mmHg ABG pO2 302 H (83-108) mmHg ABG HCO3 31 H (21-25) mmol/L ABG Total CO2 32 H (19-24) mmol/L ABG O2 Saturation 100.0 H (94-97) % Sodium (137-145) mmol/L Potassium (3.5-5.1) mmol/L Chloride (98-107) mmol/L BUN (9-20) mg/dL Creatinine (0.66-1.25) mg/dL Glucose (74-99) mg/dL POC Glucose (mg/dL) 132 H 154 H (75-99) mg/dL Calcium (8.4-10.2) mg/dL Magnesium (1.6-2.3) mg/dL Total Protein (6.3-8.2) g/dL Albumin (3.5-5.0) g/dL 11/12/20 11/13/20 11/13/20 Range/Units 23:28 03:53 03:53 WBC 23.0 H (3.8-10.6) k/uL RBC 2.43 L (4.30-5.90) m/uL Hgb 8.0 L (13.0-17.5) gm/dL Hct 25.2 L (39.0-53.0) % MCV 103.4 H (80.0-100.0) fL RDW 18.0 H (11.5-15.5) % Neutrophils # (Manual) 21.16 H (1.3-7.7) k/uL Lymphocytes # (Manual) 0.69 L (1.0-4.8) k/uL Monocytes # (Manual) 1.15 H (0-1.0) k/uL ABG pH (7.35-7.45) ABG pCO2 (35-45) mmHg ABG pO2 (83-108) mmHg ABG HCO3 (21-25) mmol/L ABG Total CO2 (19-24) mmol/L ABG O2 Saturation (94-97) % Sodium 147 H (137-145) mmol/L Potassium 5.3 H (3.5-5.1) mmol/L Chloride 110 H (98-107) mmol/L BUN 69 H (9-20) mg/dL Creatinine 1.32 H (0.66-1.25) mg/dL Glucose 117 H (74-99) mg/dL POC Glucose (mg/dL) 138 H (75-99) mg/dL Calcium 7.9 L (8.4-10.2) mg/dL Magnesium 2.9 H (1.6-2.3) mg/dL Total Protein 5.0 L (6.3-8.2) g/dL Albumin 2.5 L (3.5-5.0) g/dL 11/13/20 11/13/20 11/13/20 Range/Units 03:53 05:12 08:32 WBC (3.8-10.6) k/uL RBC (4.30-5.90) m/uL Hgb (13.0-17.5) gm/dL Hct (39.0-53.0) % MCV (80.0-100.0) fL RDW (11.5-15.5) % Neutrophils # (Manual) (1.3-7.7) k/uL Lymphocytes # (Manual) (1.0-4.8) k/uL Monocytes # (Manual) (0-1.0) k/uL ABG pH 7.29 L 7.27 L (7.35-7.45) ABG pCO2 65 H 69 H (35-45) mmHg ABG pO2 81 L (83-108) mmHg ABG HCO3 31 H 31 H (21-25) mmol/L ABG Total CO2 33 H 33 H (19-24) mmol/L ABG O2 Saturation (94-97) % Sodium (137-145) mmol/L Potassium (3.5-5.1) mmol/L Chloride (98-107) mmol/L BUN (9-20) mg/dL Creatinine (0.66-1.25) mg/dL Glucose (74-99) mg/dL POC Glucose (mg/dL) 126 H (75-99) mg/dL Calcium (8.4-10.2) mg/dL Magnesium (1.6-2.3) mg/dL Total Protein (6.3-8.2) g/dL Albumin (3.5-5.0) g/dL 11/13/20 11/13/20 11/13/20 Range/Units 08:34 10:49 11:55 WBC (3.8-10.6) k/uL RBC (4.30-5.90) m/uL Hgb (13.0-17.5) gm/dL Hct (39.0-53.0) % MCV (80.0-100.0) fL RDW (11.5-15.5) % Neutrophils # (Manual) (1.3-7.7) k/uL Lymphocytes # (Manual) (1.0-4.8) k/uL Monocytes # (Manual) (0-1.0) k/uL ABG pH 7.25 L (7.35-7.45) ABG pCO2 70 H (35-45) mmHg ABG pO2 70 L (83-108) mmHg ABG HCO3 31 H (21-25) mmol/L ABG Total CO2 33 H (19-24) mmol/L ABG O2 Saturation 92.4 L (94-97) % Sodium (137-145) mmol/L Potassium (3.5-5.1) mmol/L Chloride (98-107) mmol/L BUN (9-20) mg/dL Creatinine (0.66-1.25) mg/dL Glucose (74-99) mg/dL POC Glucose (mg/dL) 108 H 123 H (75-99) mg/dL Calcium (8.4-10.2) mg/dL Magnesium (1.6-2.3) mg/dL Total Protein (6.3-8.2) g/dL Albumin (3.5-5.0) g/dL Microbiology - Last 24 Hours (Table) 11/10/20 12:16 Blood Culture - Preliminary Blood No Growth after 48 hours 11/10/20 12:12 Blood Culture - Preliminary Blood No Growth after 48 hours 11/09/20 10:00 Gram Stain - Final Bronchial Washings - Right Bronchial Washings Culture - Final Stenotrophomonas maltophilia Citrobacter freundii Assessment and Plan Assessment: #1 CAD, status post coronary artery bypass grafting #2 aortic stenosis, status post aortic valve replacement #3 respiratory failure requiring mechanical ventilator, likely ARDS #4 paroxysmal atrial fibrillation Plan: From cardiology's perspective patient's prognosis remains guarded. Continue amiodarone 400 mg by mouth twice a day, metoprolol, and IV digoxin. We will continue to follow the patient and write further recommendations accordingly. The above dictated assessment and findings were discussed with signing physician. The impression and plan of care have been directed as dictated. Alyson Herr, Nurse Practitioner, acting as scribe for signing physician.
[2020-11-13 14:10] LABS: ABG Base Excess 2.8 mmol/L; ABG HCO3 30 mmol/L (21-25); ABG Oxygen Saturation 89.9 % (94-97); ABG PH 7.24 (7.35-7.45); ABG PO2 64 mmHg (83-108); ABG TCO2 32 mmol/L (19-24)
[2020-11-13 14:11] LABS: ABG PCO2 71 mmHg (35-45)
[2020-11-13] MEDS: SULFAMETHOX-TMP 800-160MG 1 EACH TAB PO SCH ×2 (15:13→22:41)
[2020-11-13 16:14] LABS: Glucose,Whole Blood 148 mg/dL (75-99)
[2020-11-13] MEDS ORDERED: SODIUM CHLORIDE 0.9% 500 ML 500 ML IV ONE ×2 (16:23→17:30)
[2020-11-13 19:46] LABS: Glucose,Whole Blood 129 mg/dL (75-99)
[2020-11-13] MEDS: ATORVASTATIN 80 MG TAB PO SCH (20:02)
[2020-11-13] MEDS: EZETIMIBE 10 MG TAB PO SCH (20:02)
[2020-11-13] MEDS: SENNOSIDES-DOCUSATE SODIUM 1 EACH TAB PO SCH (20:02)
--- NOTE | 2020-11-13 23:32 | P.CONS ---
History of Present Illness - Reason for Consult Consult date: 11/13/20 pneumonia Requesting physician: Lu Silvestre - Chief Complaint none /pt on vent / pneumonia - History of Present Illness History of present illness : Patient is 75-year-old male electively admitted to the hospital on 11/04/2020 for coronary artery bypass grafting in this patient who is status post aortic valve replacement and coronary artery bypass grafting x3 patient subsequently has been admitted to the ICU and has not been has been off the vent patient did have a fever of 100.2 postop day 1 and did have a fever of 100.8 on 82 but no significant fever since then patient did have a mild elevated white count on admission subsequent normalized to 9.5 for t however the white count is trending up and is up to 23,000 today patient did have a sputum culture positive for Citrobacter on the chest x-ray on the shows left upper lobe and right upper lobe density may reflect atelectasis or pneumonia patient is status post bronchoscopy that was completed on the culture showing stenotrophomonas and Citrobacter ID was consulted yesterday however consult was put under psychiatrist Dr. Way brittani name and I was not notified of the consult untill this morning chest x-ray completed this morning bibasilar increased attenuation persist correlate for pneumonia/ARDS patient is requiring higher oxygen as well as PEEP as per the nursing staff did have some bloodstained secretion through the ET has been tolerating his tube feeds and no diarrhea has been reported most information has been obtained from review of the chart and talking nursing staff as the patient himself is unable provide any history Review of system: Positive point has been mentioned in HPI complete review could not be obtained because of underlying mental status. Past medical history : Reviewed, documented below Past surgical history : Reviewed, documented below Social history: Reviewed, documented below Medications: Reviewed, as documented below GENERAL DESCRIPTION: Elderly male intubated on the vent, no distress. No tachypnea or accessory muscle of respiration use. HEENT: Shows Pallor , no scleral icterus. Oral mucous membrane is dry. NECK: Trachea central, no thyromegaly. LUNGS: Unlabored breathing. Decreased breath sound at the base. No wheeze or crackle. HEART: S1, S2, regular rate and rhythm. ABDOMEN: Soft, no tenderness , guarding or rigidity EXTREMITIES: No edema of feet. SKIN: No rash, no masses palpable. NEUROLOGICAL: The patient is sedated on the vent LABS AND RADIOLOGY: Reviewed results see below Assessment : 1-patient with acute respiratory failure which is multifactorial in this patient with the possible component of ventilator associated pneumonia with overall culture positive for stenotrophomonas and Citrobacter patient is requiring high PEEP and is failed to be weaned off the vent still requiring 70% FiO2 and worsening of the white count Plan: 1-discontinue meropenem 2-start the patient on Fortaz 2 g every 8 along with Bactrim DS 1 twice daily 3-dig level need to be monitored closely We will follow on clinical condition and cultures to further adjust medication if needed Thank you for this consultation we will follow the patient along with you Past Medical History Past Medical History: Coronary Artery Disease (CAD), Hyperlipidemia, Hypertension, Myocardial Infarction (CA) Additional Past Medical History / Comment(s): Coronary artery disease, previous coronary stenting of the RCA, previous myocardial infarction, COPD, previous right upper lobe pneumonia, right upper lobe pulmonary nodule that needs to be further investigated and it showed increased evident activity on PET scan, hypertension, hyperlipidemia, elevated PSA Last Myocardial Infarction Date:: UNKNOWN History of Any Multi-Drug Resistant Organisms: None Reported Past Surgical History: Heart Catheterization, Heart Catheterization With Stent Additional Past Surgical History / Comment(s): HEART CATHS X3, Past Anesthesia/Blood Transfusion Reactions: No Reported Reaction Additional Past Anesthesia/Blood Transfusion Reaction / Comm: HAS NEVER RECEIVED ANESTHESIA. Date of Last Stent Placement:: 3-4 YRS AGO? Smoking Status: Former smoker - Past Family History Father Family Medical History: Cancer Additional Family Medical History / Comment(s): COLON CANCER Medications and Allergies Home Medications Medication Instructions Recorded Confirmed Type Ascorbic Acid [Vitamin C] 1,000 mg PO DAILY 08/22/15 10/24/20 History Aspirin EC [Ecotrin Low Dose] 81 mg PO DAILY 08/22/15 11/04/20 History Atorvastatin Calcium [Lipitor] 80 mg PO HS 08/22/15 10/24/20 History Ezetimibe [Zetia] 10 mg PO HS 08/22/15 10/24/20 History Metoprolol Tartrate [Lopressor] 50 mg PO BID 08/22/15 10/24/20 History Multivitamins, Thera [Multivitamin 1 tab PO DAILY 08/22/15 10/24/20 History (formulary)] [place]-3 Fatty Acids/Fish Oil [Fish 1 cap PO DAILY 08/22/15 11/04/20 History Oil 1,000 mg Softgel] Clopidogrel [Plavix] 75 mg PO DAILY #90 tab 10/16/19 10/24/20 Rx Nitroglycerin Sl Tabs [Nitrostat] 0.4 mg SUBLINGUAL Q5M PRN #25 tab 10/17/19 10/24/20 Rx Biotin 10,000 mcg PO DAILY 10/06/20 10/24/20 History Furosemide [Lasix] 40 mg PO DAILY 10/06/20 10/24/20 History amLODIPine BESYLATE [Norvasc] 2.5 mg PO DAILY 10/06/20 11/04/20 History Glucos Sul 2Kcl/MSM/Chond/C/Mn 2 each PO DAILY 10/24/20 11/04/20 History [Glucosamine Chondroitin Cap] Allergies Allergy/AdvReac Type Severity Reaction Status Date / Time No Known Allergies Allergy Verified 11/04/20 06:08 Physical Exam Vitals: Vital Signs Temp Pulse Resp Pulse Ox 11/13/20 14:00 70 34 H 92 L 11/13/20 13:30 70 34 H 91 L 11/13/20 13:00 70 34 H 91 L 11/13/20 12:30 70 34 H 95 11/13/20 12:00 98.1 F 70 34 H 95 11/13/20 11:32 70 11/13/20 11:30 70 34 H 94 L 11/13/20 11:25 70 11/13/20 11:00 70 34 H 94 L 11/13/20 10:30 70 34 H 94 L 11/13/20 10:00 70 34 H 94 L 11/13/20 09:30 70 34 H 95 11/13/20 09:00 70 34 H 96 11/13/20 08:30 70 34 H 97 11/13/20 08:00 97.7 F 70 34 H 97 11/13/20 07:30 70 34 H 97 11/13/20 07:24 70 11/13/20 07:09 70 11/13/20 07:00 70 34 H 95 11/13/20 06:30 70 34 H 95 11/13/20 06:00 70 34 H 96 11/13/20 05:30 70 35 H 94 L 11/13/20 05:00 70 35 H 95 11/13/20 04:30 70 36 H 95 11/13/20 04:00 97.3 F L 70 34 H 95 11/13/20 03:30 70 34 H 94 L 11/13/20 03:00 70 34 H 94 L 11/13/20 02:30 70 34 H 93 L 11/13/20 02:00 70 35 H 93 L 11/13/20 01:30 70 34 H 95 11/13/20 01:00 70 34 H 96 11/13/20 00:30 70 34 H 96 11/13/20 00:00 97.4 F L 70 34 H 97 11/12/20 23:30 70 35 H 96 11/12/20 23:00 116 H 34 H 94 L 11/12/20 22:30 101 H 34 H 100 11/12/20 22:00 116 H 34 H 100 11/12/20 21:30 122 H 34 H 98 11/12/20 21:00 70 34 H 100 11/12/20 20:30 70 34 H 100 11/12/20 20:21 70 11/12/20 20:00 70 34 H 99 11/12/20 19:58 72 11/12/20 19:30 70 34 H 99 11/12/20 19:00 70 34 H 100 11/12/20 18:30 70 34 H 99 11/12/20 18:00 70 35 H 99 11/12/20 17:30 70 23 98 11/12/20 17:00 113 H 35 H 100 11/12/20 16:30 70 34 H 97 11/12/20 16:00 70 34 H 98 11/12/20 15:30 70 34 H 94 L 11/12/20 15:00 70 34 H 98 11/12/20 14:30 70 34 H 97 Intake and Output 11/12/20 11/13/20 11/13/20 22:59 06:59 14:59 Intake Total 1305.588 430.030 8341.043 Output Total 490 495 270 Balance 815.588 903.234 9500.043 Intake: IV 299 298.9 204 Lactated Ringers 1,000 ml 175 175 80 @ 20 mls/hr IV .Q24H [facility] Rx#:[id number] Meropenem 1 gm In Sodium 100 99.9 100 Chloride 0.9% 100 ml @ 33 .3 mls/hr IVPB Q8HR [facility] Rx#:[id number] Pressure Bag 24 24 24 Intake, IV Titration 639.588 524.121 879.043 Amount Dextrose 5% in Water 1, 80 000 ml @ 20 mls/hr IV . Q24H [facility] Rx#:[id number] Phenylephrine 40 mg In 198.295 90.110 249.043 Sodium Chloride 0.9% 250 ml @ 0.5 MCG/KG/MIN 18. 498 mls/hr IV .[id number] [facility] Rx#:[id number] cefTAZidime 2 gm In 100 Sodium Chloride 0.9% 100 ml @ 25 mls/hr IVPB Q8H [facility] Rx#:[id number] fentaNYL (PF) 2,500 mcg 241.293 234.011 250 In Sodium Chloride 0.9% 200 ml @ Per Protocol IV .Q0M [facility] Rx#:[id number] propofoL 1,000 mg In 200 200 200 Empty Bag 1 bag @ Titrate IV .Q0M [facility] Rx#: [id number] Tube Feeding 307 150 500 Other 60 120 Output: Urine 490 495 270 Other: Voiding Method Indwelling Catheter Indwelling Catheter Indwelling Catheter Weight 100 kg ABP, PAP, CO, CI - Last 8 Hours Arterial Blood Pressure 103/45 Arterial Blood Pressure 104/44 Arterial Blood Pressure 95/41 Arterial Blood Pressure 93/41 Arterial Blood Pressure 100/43 Arterial Blood Pressure 100/45 Arterial Blood Pressure 103/48 Arterial Blood Pressure 113/50 Arterial Blood Pressure 115/50 Arterial Blood Pressure 121/50 Arterial Blood Pressure 117/44 Arterial Blood Pressure 94/41 Arterial Blood Pressure 113/49 Arterial Blood Pressure 116/47 Arterial Blood Pressure 106/44 Arterial Blood Pressure 121/46 Results CBC & Chem 7: 11/13/20 03:53 11/13/20 03:53 Labs: Abnormal Lab Results - Last 24 Hours (Table) 11/12/20 11/12/20 11/12/20 Range/Units 15:49 19:56 23:28 WBC (3.8-10.6) k/uL RBC (4.30-5.90) m/uL Hgb (13.0-17.5) gm/dL Hct (39.0-53.0) % MCV (80.0-100.0) fL RDW (11.5-15.5) % Neutrophils # (Manual) (1.3-7.7) k/uL Lymphocytes # (Manual) (1.0-4.8) k/uL Monocytes # (Manual) (0-1.0) k/uL ABG pH (7.35-7.45) ABG pCO2 (35-45) mmHg ABG pO2 (83-108) mmHg ABG HCO3 (21-25) mmol/L ABG Total CO2 (19-24) mmol/L ABG O2 Saturation (94-97) % Sodium (137-145) mmol/L Potassium (3.5-5.1) mmol/L Chloride (98-107) mmol/L BUN (9-20) mg/dL Creatinine (0.66-1.25) mg/dL Glucose (74-99) mg/dL POC Glucose (mg/dL) 132 H 154 H 138 H (75-99) mg/dL Calcium (8.4-10.2) mg/dL Magnesium (1.6-2.3) mg/dL Total Protein (6.3-8.2) g/dL Albumin (3.5-5.0) g/dL 11/13/20 11/13/20 11/13/20 Range/Units 03:53 03:53 03:53 WBC 23.0 H (3.8-10.6) k/uL RBC 2.43 L (4.30-5.90) m/uL Hgb 8.0 L (13.0-17.5) gm/dL Hct 25.2 L (39.0-53.0) % MCV 103.4 H (80.0-100.0) fL RDW 18.0 H (11.5-15.5) % Neutrophils # (Manual) 21.16 H (1.3-7.7) k/uL Lymphocytes # (Manual) 0.69 L (1.0-4.8) k/uL Monocytes # (Manual) 1.15 H (0-1.0) k/uL ABG pH (7.35-7.45) ABG pCO2 (35-45) mmHg ABG pO2 (83-108) mmHg ABG HCO3 (21-25) mmol/L ABG Total CO2 (19-24) mmol/L ABG O2 Saturation (94-97) % Sodium 147 H (137-145) mmol/L Potassium 5.3 H (3.5-5.1) mmol/L Chloride 110 H (98-107) mmol/L BUN 69 H (9-20) mg/dL Creatinine 1.32 H (0.66-1.25) mg/dL Glucose 117 H (74-99) mg/dL POC Glucose (mg/dL) 126 H (75-99) mg/dL Calcium 7.9 L (8.4-10.2) mg/dL Magnesium 2.9 H (1.6-2.3) mg/dL Total Protein 5.0 L (6.3-8.2) g/dL Albumin 2.5 L (3.5-5.0) g/dL 11/13/20 11/13/20 11/13/20 Range/Units 05:12 08:32 08:34 WBC (3.8-10.6) k/uL RBC (4.30-5.90) m/uL Hgb (13.0-17.5) gm/dL Hct (39.0-53.0) % MCV (80.0-100.0) fL RDW (11.5-15.5) % Neutrophils # (Manual) (1.3-7.7) k/uL Lymphocytes # (Manual) (1.0-4.8) k/uL Monocytes # (Manual) (0-1.0) k/uL ABG pH 7.29 L 7.27 L (7.35-7.45) ABG pCO2 65 H 69 H (35-45) mmHg ABG pO2 81 L (83-108) mmHg ABG HCO3 31 H 31 H (21-25) mmol/L ABG Total CO2 33 H 33 H (19-24) mmol/L ABG O2 Saturation (94-97) % Sodium (137-145) mmol/L Potassium (3.5-5.1) mmol/L Chloride (98-107) mmol/L BUN (9-20) mg/dL Creatinine (0.66-1.25) mg/dL Glucose (74-99) mg/dL POC Glucose (mg/dL) 108 H (75-99) mg/dL Calcium (8.4-10.2) mg/dL Magnesium (1.6-2.3) mg/dL Total Protein (6.3-8.2) g/dL Albumin (3.5-5.0) g/dL 11/13/20 11/13/20 11/13/20 Range/Units 10:49 11:55 14:04 WBC (3.8-10.6) k/uL RBC (4.30-5.90) m/uL Hgb (13.0-17.5) gm/dL Hct (39.0-53.0) % MCV (80.0-100.0) fL RDW (11.5-15.5) % Neutrophils # (Manual) (1.3-7.7) k/uL Lymphocytes # (Manual) (1.0-4.8) k/uL Monocytes # (Manual) (0-1.0) k/uL ABG pH 7.25 L 7.24 L (7.35-7.45) ABG pCO2 70 H 71 H* (35-45) mmHg ABG pO2 70 L 64 L (83-108) mmHg ABG HCO3 31 H 30 H (21-25) mmol/L ABG Total CO2 33 H 32 H (19-24) mmol/L ABG O2 Saturation 92.4 L 89.9 L (94-97) % Sodium (137-145) mmol/L Potassium (3.5-5.1) mmol/L Chloride (98-107) mmol/L BUN (9-20) mg/dL Creatinine (0.66-1.25) mg/dL Glucose (74-99) mg/dL POC Glucose (mg/dL) 123 H (75-99) mg/dL Calcium (8.4-10.2) mg/dL Magnesium (1.6-2.3) mg/dL Total Protein (6.3-8.2) g/dL Albumin (3.5-5.0) g/dL Microbiology - Last 24 Hours (Table) 11/10/20 12:12 Blood Culture - Preliminary Blood No Growth after 72 hours 11/10/20 12:16 Blood Culture - Preliminary Blood No Growth after 48 hours 11/09/20 10:00 Gram Stain - Final Bronchial Washings - Right Bronchial Washings Culture - Final Stenotrophomonas maltophilia Citrobacter freundii
[2020-11-13 23:52] LABS: Glucose,Whole Blood 128 mg/dL (75-99)
[2020-11-14] MEDS: PHENYLEPHRINE 40 MG in SODIUM CHLORIDE 0.9% 250 ML IV SCH ×3 (01:00→22:54)
[2020-11-14 03:57] LABS: Glucose,Whole Blood 128 mg/dL (75-99)
[2020-11-14] MEDS: fentaNYL (PF) 2,500 MCG in SODIUM CHLORIDE 0.9% 200 ML IV SCH ×3 (04:05→20:56)
[2020-11-14 04:10] LABS: Anisocytosis Slight; HCT 26.3 % (39.0-53.0); HGB 8.2 gm/dL (13.0-17.5); Hypochromasia Marked; MCH 32.9 pg (25.0-35.0); MCHC 31.3 g/dL (31.0-37.0); MCV 105.1 fL (80.0-100.0); Macrocytosis Marked; Mean Platelet Volume 10.3; Platelet Count 268 k/uL (150-450); WBC 27.1 k/uL (3.8-10.6)
[2020-11-14 04:27] LABS: Ionized Calcium 4.8 mg/dL (4.5-5.3)
[2020-11-14 04:36] LABS: Albumin 2.6 g/dL (3.5-5.0); Calcium 7.7 mg/dL (8.4-10.2); Magnesium 2.9 mg/dL (1.6-2.3); Potassium 5.7 mmol/L (3.5-5.1); Total Bilirubin 0.6 mg/dL (0.2-1.3); Total Protein 5.1 g/dL (6.3-8.2)
[2020-11-14 05:03] LABS: ABG Base Excess 1.3 mmol/L; ABG HCO3 29 mmol/L (21-25); ABG Oxygen Saturation 90.5 % (94-97); ABG PCO2 65 mmHg (35-45); ABG PH 7.25 (7.35-7.45); ABG PO2 63 mmHg (83-108); ABG TCO2 31 mmol/L (19-24); Allen Test Performed? Yes
[2020-11-14 05:30] LABS: Band Neutrophils % 1 %; Lymphocytes # (M) 1.36 k/uL (1.0-4.8); Metamyelocytes # (M) 0.27 k/uL (0); Metamyelocytes % 1 %; Monocytes # (M) 1.08 k/uL (0-1.0); Neutrophils % (M) 91 %; Nucleated Red Blood Cells 0 /100 WBC (0-0); Total Cells Counted 200
[2020-11-14 05:38] LABS: Digoxin 2.6 ng/mL
[2020-11-14] MEDS: METOCLOPRAMIDE 5 MG/ML 2 ML VIAL IVP SCH ×3 (07:03→19:08)
--- NOTE | 2020-11-14 07:24 | XR ---
EXAMINATION TYPE: XR chest 1V portable DATE OF EXAM: 11/14/2020 COMPARISON: 11/13/2020 HISTORY: SOB, Follow Up FINDINGS: Indwelling tubes and catheters are unchanged. Coarse reticulonodular infiltrates persist throughout both lung moore greatest at the right lower lo be. Stable appearance of the cardio-mediastinal structures at this time. Pleural effusion unchanged. IMPRESSION: 1. Stable portable chest. Clinical correlation and follow up until resolution is recommended.
[2020-11-14] MEDS: IPRATROPIUM-ALBUTEROL 3 ML NEB INHALATION SCH ×4 (07:42→20:04)
[2020-11-14] MEDS ORDERED: FUROSEMIDE 10 MG/ML 2 ML VIAL IV ONE ×2 (08:00→09:44)
[2020-11-14] MEDS: INSULIN ASPART (NovoLOG) 100 UNIT/ML VIAL SQ SCH ×6 (08:36→20:20)
[2020-11-14 09:08] LABS: Glucose,Whole Blood 140 mg/dL (75-99)
--- NOTE | 2020-11-14 09:09 | P.PN ---
Subjective Progress Note Date: 11/14/20 Principal diagnosis: Severe triple vessel coronary artery disease, moderate to severe aortic valve stenosis, pulmonary hypertension and right upper lobe pulmonary nodule, suspicious for malignancy based on PET scan findings. Past medical history significant for hypertension, hyperlipidemia, right subclavian artery stenosis, coronary artery disease with previous stenting of the right coronary artery, history of right upper lobe pneumonia, COPD with preoperative FEV1 showing a predicted value of 66%, DLCO 18% of predicted value and remote history of nicotine dependence in which he quit smoking around 25 years ago. POD #10 aortic valve replacement with a 27 mm [place] Inspiris bioprosthetic aortic valve, coronary artery bypass grafting 3 with a reverse saphenous vein graft off the aorta to the circumflex coronary artery, the left anterior descending coronary artery and the posterior descending coronary artery with bilateral lower extremity greater saphenous vein endoscopic harvesting. Clip ligation of the left atrial appendage with a 35 mm Atriclip, intraoperative transesophageal echocardiogram and graft flow measurement using the [employer] system. Postoperative acute blood loss anemia and thrombocytopenia, expected given hemodilution and cardiopulmonary bypass. Prolonged mechanical ventilation, secondary acute hypoxic respiratory failure with ongoing hypoxemia, preoperative FEV1 66% of predicted value and DLCO 18% of predicted value. Paroxysmal atrial fibrillation, a known common occurrence after cardiac surgery Postoperative pneumonia with sputum culture positive for Citrobacter freundii, unexpected, bronchial washings positive for Citrobacter freundii and Stenotrophomonas maltophilia The patient remains laying in the intensive care unit on sedation with propofol and fentanyl with mechanical ventilation. Remains afebrile, white blood cell c ount 27.1 this morning, was 23 yesterday. Remains on IV Solu-Medrol. Infectious disease consulted, meropenem discontinued, ceftazidime and Bactrim added. No further episodes of A. fib or atrial tachycardia. Remains in sinus rhythm, occasionally atrially paced at 70 bpm. Remains on oral amio and lopressor, was dig loaded, digoxin level 2.6 this morning, digoxin discontinued. Remains on IV neosynephrine for blood pressure support, patient does not tolerate laying flat or rotating [id number] at all without desaturation and hypotension. Left brachial PICC line, left radial arterial line remain present. Currently receiving tube feeding at its 57 mL per hour. He had received Lasix for 4 days, no Lasix given yesterday. BUN 85, creat 1.9 this morning. Ventilator settings adjusted by marble polisher hand, currently on 100% FiO2 with 22 of PEEP. Objective - Vital Signs Vital signs: Vital Signs Temp 97.7 F 11/13/20 20:00 Pulse 71 11/14/20 07:58 Resp 34 H 11/14/20 07:00 BP 106/52 11/11/20 22:00 Pulse Ox 91 L 11/14/20 07:00 Intake & Output 11/13/20 11/14/20 11/14/20 18:59 06:59 18:59 Intake Total 3438.082 2372.363 105 Output Total 395 410 60 Balance 3043.082 1962.363 45 Weight 105.1 kg Intake: IV 216 431 48 D5W 220 20 Lactated Ringers 1,000 ml 80 @ 20 mls/hr IV .Q24H [facility] Rx#:[id number] Meropenem 1 gm In Sodium 100 Chloride 0.9% 100 ml @ 33 .3 mls/hr IVPB Q8HR [facility] Rx#:[id number] Pressure Bag 36 36 3 cefTAZidime 2 gm In 175 25 Sodium Chloride 0.9% 100 ml @ 25 mls/hr IVPB Q8H [facility] Rx#:[id number] Intake, IV Titration 2278.082 1167.363 Amount Dextrose 5% in Water 1, 160 20 000 ml @ 20 mls/hr IV . Q24H [facility] Rx#:[id number] Phenylephrine 40 mg In 468.082 447.363 Sodium Chloride 0.9% 250 ml @ 0.5 MCG/KG/MIN 18. 498 mls/hr IV .[id number] [facility] Rx#:[id number] Sodium Chloride 0.9% 500 500 ml 500 ml @ 999 mls/hr IV .Q31M [facility] Rx#:[id number] Sodium Chloride 0.9% 500 500 ml 500 ml @ 999 mls/hr IV .Q31M [facility] Rx#:[id number] cefTAZidime 2 gm In 100 Sodium Chloride 0.9% 100 ml @ 25 mls/hr IVPB Q8H [facility] Rx#:[id number] fentaNYL (PF) 2,500 mcg 250 500 In Sodium Chloride 0.9% 200 ml @ Per Protocol IV .Q0M [facility] Rx#:[id number] propofoL 1,000 mg In 300 200 Empty Bag 1 bag @ Titrate IV .Q0M [facility] Rx#: [id number] Tube Feeding 764 684 57 Other 180 90 Output: Urine 395 410 60 Other: Voiding Method Indwelling Catheter Indwelling Catheter # Bowel Movements 1 ABP, PAP, CO, CI - Last Documented Arterial Blood Pressure 141/51 Pulmonary Artery Pressure 69/37 Cardiac Output 5.2 Cardiac Index 2.6 - Exam CONSTITUTIONAL: Remains sedated on mechanical ventilation RESPIRATORY: Lungs sounds diminished bilaterally with coarse breath sounds in the bases. Respirations even, nonlabored on mechanical ventilation. Currently on assist control mode with FiO2 100%, PEEP 22, tidal volume 400, respiratory rate 34. 8.5 ET tube present, 23 at the lip CARDIOVASCULAR: S1, S2 present. Regular rate and rhythm, sinus rhythm on telemetry, occasionally atrially paced rate at 70 bpm. Sternum stable. Palpable peripheral pulses bilaterally. Generalized edema present. Heart hugger, antiembolism stockings, SCDs present. GASTROINTESTINAL: Abdomen soft, nontender, nondistended. Active bowel sounds present. Tube feeding infusing at 57 mL per hour. Large bowel movement this morning GENITOURINARY: Espinal present draining clear, yellow urine. Output overnight 20-45 mL per hour, 805 mL in the last 24 hours INTEGUMENTARY: Skin is warm and dry. Anterior chest incision well approximated and covered with dry intact dressing. Left lower extremity EVH site well approximated without redness or drainage PSYCHIATRIC: Sedated on mechanical ventilation. Per nursing off sedation patient will raise his eyebrows but does not follow much other commands INVASIVE LINES AND TUBES: A/V epicardial pacemaker wires present, AAI mode with rate 70 bpm. Left brachial PICC line, left radial arterial line present. - Allied health notes Allied health notes reviewed: nursing - Labs CBC & Chem 7: 11/14/20 04:00 11/14/20 04:00 Labs: Abnormal Lab Results - Last 24 Hours (Table) 11/13/20 11/13/20 11/13/20 Range/Units 03:53 10:49 11:55 WBC (3.8-10.6) k/uL RBC (4.30-5.90) m/uL Hgb (13.0-17.5) gm/dL Hct (39.0-53.0) % MCV (80.0-100.0) fL RDW (11.5-15.5) % Neutrophils # (Manual) (1.3-7.7) k/uL Monocytes # (Manual) (0-1.0) k/uL Metamyelocytes # (Man) (0) k/uL Macrocytosis ABG pH 7.25 L (7.35-7.45) ABG pCO2 70 H (35-45) mmHg ABG pO2 70 L (83-108) mmHg ABG HCO3 31 H (21-25) mmol/L ABG Total CO2 33 H (19-24) mmol/L ABG O2 Saturation 92.4 L (94-97) % Potassium (3.5-5.1) mmol/L Chloride (98-107) mmol/L BUN (9-20) mg/dL Creatinine (0.66-1.25) mg/dL Glucose (74-99) mg/dL POC Glucose (mg/dL) 123 H (75-99) mg/dL Calcium (8.4-10.2) mg/dL Magnesium (1.6-2.3) mg/dL Total Protein (6.3-8.2) g/dL Albumin (3.5-5.0) g/dL Procalcitonin 0.29 H (0.02-0.09) ng/mL Digoxin ng/mL 11/13/20 11/13/20 11/13/20 Range/Units 14:04 16:12 19:44 WBC (3.8-10.6) k/uL RBC (4.30-5.90) m/uL Hgb (13.0-17.5) gm/dL Hct (39.0-53.0) % MCV (80.0-100.0) fL RDW (11.5-15.5) % Neutrophils # (Manual) (1.3-7.7) k/uL Monocytes # (Manual) (0-1.0) k/uL Metamyelocytes # (Man) (0) k/uL Macrocytosis ABG pH 7.24 L (7.35-7.45) ABG pCO2 71 H* (35-45) mmHg ABG pO2 64 L (83-108) mmHg ABG HCO3 30 H (21-25) mmol/L ABG Total CO2 32 H (19-24) mmol/L ABG O2 Saturation 89.9 L (94-97) % Potassium (3.5-5.1) mmol/L Chloride (98-107) mmol/L BUN (9-20) mg/dL Creatinine (0.66-1.25) mg/dL Glucose (74-99) mg/dL POC Glucose (mg/dL) 148 H 129 H (75-99) mg/dL Calcium (8.4-10.2) mg/dL Magnesium (1.6-2.3) mg/dL Total Protein (6.3-8.2) g/dL Albumin (3.5-5.0) g/dL Procalcitonin (0.02-0.09) ng/mL Digoxin ng/mL 11/13/20 11/14/20 11/14/20 Range/Units 23:51 03:54 04:00 WBC 27.1 H (3.8-10.6) k/uL RBC 2.50 L (4.30-5.90) m/uL Hgb 8.2 L (13.0-17.5) gm/dL Hct 26.3 L (39.0-53.0) % MCV 105.1 H (80.0-100.0) fL RDW 18.0 H (11.5-15.5) % Neutrophils # (Manual) 24.90 H (1.3-7.7) k/uL Monocytes # (Manual) 1.08 H (0-1.0) k/uL Metamyelocytes # (Man) 0.27 H (0) k/uL Macrocytosis Marked A ABG pH (7.35-7.45) ABG pCO2 (35-45) mmHg ABG pO2 (83-108) mmHg ABG HCO3 (21-25) mmol/L ABG Total CO2 (19-24) mmol/L ABG O2 Saturation (94-97) % Potassium (3.5-5.1) mmol/L Chloride (98-107) mmol/L BUN (9-20) mg/dL Creatinine (0.66-1.25) mg/dL Glucose (74-99) mg/dL POC Glucose (mg/dL) 128 H 128 H (75-99) mg/dL Calcium (8.4-10.2) mg/dL Magnesium (1.6-2.3) mg/dL Total Protein (6.3-8.2) g/dL Albumin (3.5-5.0) g/dL Procalcitonin (0.02-0.09) ng/mL Digoxin ng/mL 11/14/20 11/14/20 Range/Units 04:00 04:55 WBC (3.8-10.6) k/uL RBC (4.30-5.90) m/uL Hgb (13.0-17.5) gm/dL Hct (39.0-53.0) % MCV (80.0-100.0) fL RDW (11.5-15.5) % Neutrophils # (Manual) (1.3-7.7) k/uL Monocytes # (Manual) (0-1.0) k/uL Metamyelocytes # (Man) (0) k/uL Macrocytosis ABG pH 7.25 L (7.35-7.45) ABG pCO2 65 H (35-45) mmHg ABG pO2 63 L (83-108) mmHg ABG HCO3 29 H (21-25) mmol/L ABG Total CO2 31 H (19-24) mmol/L ABG O2 Saturation 90.5 L (94-97) % Potassium 5.7 H (3.5-5.1) mmol/L Chloride 111 H (98-107) mmol/L BUN 85 H (9-20) mg/dL Creatinine 1.90 H (0.66-1.25) mg/dL Glucose 124 H (74-99) mg/dL POC Glucose (mg/dL) (75-99) mg/dL Calcium 7.7 L (8.4-10.2) mg/dL Magnesium 2.9 H (1.6-2.3) mg/dL Total Protein 5.1 L (6.3-8.2) g/dL Albumin 2.6 L (3.5-5.0) g/dL Procalcitonin (0.02-0.09) ng/mL Digoxin 2.6 H* ng/mL Microbiology - Last 24 Hours (Table) 11/10/20 12:16 Blood Culture - Preliminary Blood No Growth after 72 hours 11/10/20 12:12 Blood Culture - Preliminary Blood No Growth after 72 hours - Imaging and Cardiology Chest x-ray: report reviewed, image reviewed Assessment and Plan Assessment: 1. Severe triple-vessel coronary artery disease, status post three-vessel coronary artery bypass grafting surgery 2. Moderate to severe aortic valve stenosis, status post aortic valve replacement with a #27 mm [place] Inspiris bioprosthetic aortic valve 3. Pulmonary hypertension 4. Known right upper lobe pulmonary nodule, suspicious for malignancy based on PET scan findings 5. COPD with a preoperative FEV1 66% of predicted value and a DLCO 18% of predicted value 6. Known right subclavian artery stenosis 7. History of Hypertension 8. Hyperlipidemia, treated 9. History of coronary artery disease with previous stenting of the right coronary artery 10. 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 Remote history of nicotine dependence, quit smoking over 25 years ago 12. Postoperative anemia and thrombocytopenia, expected given hemodilution and cardiopulmonary bypass 13. Prolonged mechanical ventilator support, secondary to acute respiratory failure with ongoing hypoxemia 14. Paroxysmal atrial fibrillation, a known common occurrence after cardiac surgery, currently in normal sinus rhythm 15. Pneumonia, sputum culture positive for Citrobacter freundii, Stenotrophomo nathan maltophilia 16. BOSSMAN, possibly medication induced Plan: 1. Continue to optimize medical management with aspirin, statin, zetia, and beta paul. Wean Huber as tolerated. Digoxin discontinued 2. Continue amio for afib prophylaxis. No anticoagulation at this time 3. Continue antibiotics per infectious disease recommendations 4. Patient will need tracheostomy and PEG tube placement once stable. Will discuss with family 5. Continue to monitor daily labs and chest x-rays. Electrolyte replacement per protocol. 6. Nephrology consulted, appreciate recommendations 7. Pain control with current medication regimen, continue fentanyl 8. GI/DVT prophylaxis 9. Insulin management per primary care service. The patient is not diabetic with preoperative hemoglobin A1c 5.4%, needs tight blood sugar control to promote sternal union and prevent infection. 10. Keep left radial arterial line in place. 11. Continue Espinal catheter for strict accurate intake and output. Continue to monitor daily weights. 12. Continue atrial and ventricular pacemaker wires with pacemaker generator to a AAI rate of 70 BPM. 13. Continue tube feedings as tolerated 14. Will order midline placement for tomorrow as peripheral IVs are dated and patient still needs multiple access site due to pressors, abt, sedation, pain control 15. More recommendations to follow Time with Patient: Greater than 30
--- NOTE | 2020-11-14 09:27 | P.PN ---
Subjective Progress Note Date: 11/14/20 Principal diagnosis: Acute hypoxic respiratory failure, postop CABG On today's evaluation on 11/07/2020 patient is seen in the intensive care unit, sedated and intubated, on assist-control mode of ventilation, with a rate of 24, M is 450, FiO2 of 60% and PEEP of 12. This morning his blood gases showed pO2 of 76, pCO2 of 38, and pH is 7.46, today's chest x-ray has been reviewed showing no evidence of pneumothorax, mild scattered ulnar edema, and left lower lobe atelectasis. Patient received a dose of IV Lasix yesterday, however he is still in +200 mL fluid balance over the last 24 hours, he was given an additional dose of IV Lasix this morning per CT surgery. Yesterday an attempt was made to wean down FiO2 however patient's FiO2 down to 50%, however follow-up blood gas showed severe worsening of oxygenation, and pO2 of 46%. His PEEP was increased to 12, and FiO2 at 60%. In addition patient went into A. fib with RVR last night, he was started on amiodarone infusion which is currently infusing at 0.5 mg/m. He is on Diprivan at 40 mics per kilo per minute, lactated Ringer's at 50 ML per hour. Insulin at 3 units per hour. Currently patient remains in A. fib with a better controlled rate at 73 BPM, blood pressure is 122/54, PA pressures 61/31, CVP is 10, article output is 4.7, cardiac index is 2.4. Patient has one mediastinal and one mediastinal chest tube connected to left pleural chest tubes with minimal outputs overnight, no evidence of air leak noted. Epicardial wires are in place, grounded to the chest. Currently not on any anticoagulation, e xcept for full dose aspirin 325 mg. Today's platelet count is 82, HIT antibodies have been sent and are pending right now, as today's blood work has been reviewed showing white blood cell, 12.7, hemoglobin is 7.9, actually lites are within normal limits, B1 is 21 creatinine 0.73. Patient did receive multiple blood products in the postoperative period, 3 units of packed red blood cells, 4 units of FFP, 1 unit of cryoprecipitate, and 1 unit of platelets. There has been no evidence of active bleeding, minimal output from the chest tubes. On 11/14/2020 patient seen in follow-up in intensive care unit, he remains sedated, and intubated, on assist-control mode of ventilation with a rate of 34, tidal and was 400, FiO2 of 90% and PEEP of 22. His morning blood gas showing pO2 of 63, pCO2 of 65, and pH of 7.25 and this was done on the FiO2 of 70%. Pulse ox around 90-91%. Today's chest x-ray showing coarse reticulonodular infiltrates throughout both lung moore greatest at the right lower lobe. IV infusions include D5W at a rate of 20 ML per hour, Huber-Synephrine at 0.8 mics per kilo per minute, fentanyl drip at 3 mics per kilo per hour, and to prevent is a 40 mics per kilo per minute. Patient is tolerating tube feedings currently on vital high-protein at 57 with a goal of 57 and scattered water flushes. He is in the paced rhythm with a rate of 70 BPM. He is on antibiotics in the form of Fortaz and Bactrim KRISTA for evidence of Citrobacter freundii and Stenotrophomonas maltophilia. His blood cultures have shown no growth, urine culture is negative. Overnight there has been no fever. Today's labs have been reviewed, showing white blood cell count of 27.1, hemoglobin is 8.2, serum sodium is 145, potassium is 5.7, chloride is 111, BUN is 85, and creatinine is 1.9, all up pro-calcitonin level is 0.29 which is up from the previous value 0.18. Digoxin level is 2.6. Patient remains on amiodarone 400 mg twice daily, so on metoprolol 25 mg twice daily. No episodes of atrial fibrillation overnight. His chest tubes have been discontinued. His incisions are clean dry and intact. He does have mild generalized edema, he received one-time dose of Lasix this morning 20 mg IV push. Objective - Vital Signs Vital signs: Vital Signs Temp 97.7 F 11/13/20 20:00 Pulse 71 11/14/20 07:58 Resp 34 H 11/14/20 07:00 BP 106/52 11/11/20 22:00 Pulse Ox 91 L 11/14/20 07:00 Intake & Output 11/13/20 11/14/20 11/14/20 18:59 06:59 18:59 Intake Total 3438.082 2372.363 105 Output Total 395 410 60 Balance 3043.082 1962.363 45 Weight 105.1 kg Intake: IV 216 431 48 D5W 220 20 Lactated Ringers 1,000 ml 80 @ 20 mls/hr IV .Q24H [facility] Rx#:[id number] Meropenem 1 gm In Sodium 100 Chloride 0.9% 100 ml @ 33 .3 mls/hr IVPB Q8HR [facility] Rx#:[id number] Pressure Bag 36 36 3 cefTAZidime 2 gm In 175 25 Sodium Chloride 0.9% 100 ml @ 25 mls/hr IVPB Q8H [facility] Rx#:[id number] Intake, IV Titration 2278.082 1167.363 Amount Dextrose 5% in Water 1, 160 20 000 ml @ 20 mls/hr IV . Q24H [facility] Rx#:[id number] Phenylephrine 40 mg In 468.082 447.363 Sodium Chloride 0.9% 250 ml @ 0.5 MCG/KG/MIN 18. 498 mls/hr IV .[id number] [facility] Rx#:[id number] Sodium Chloride 0.9% 500 500 ml 500 ml @ 999 mls/hr IV .Q31M [facility] Rx#:[id number] Sodium Chloride 0.9% 500 500 ml 500 ml @ 999 mls/hr IV .Q31M [facility] Rx#:[id number] cefTAZidime 2 gm In 100 Sodium Chloride 0.9% 100 ml @ 25 mls/hr IVPB Q8H [facility] Rx#:[id number] fentaNYL (PF) 2,500 mcg 250 500 In Sodium Chloride 0.9% 200 ml @ Per Protocol IV .Q0M [facility] Rx#:[id number] propofoL 1,000 mg In 300 200 Empty Bag 1 bag @ Titrate IV .Q0M [facility] Rx#: [id number] Tube Feeding 764 684 57 Other 180 90 Output: Urine 395 410 60 Other: Voiding Method Indwelling Catheter Indwelling Catheter # Bowel Movements 1 ABP, PAP, CO, CI - Last Documented Arterial Blood Pressure 141/51 Pulmonary Artery Pressure 69/37 Cardiac Output 5.2 Cardiac Index 2.6 - Exam GENERAL EXAM: The, intubated, 75-year-old white male, on assist-control mode of ventilation, FiO2 of 90% and PEEP of 22 comfortable in no apparent distress. HEAD: Normocephalic/atraumatic. EYES: Normal reaction of pupils, equal size. Conjunctiva pink, sclera white. NOSE: Clear with pink turbinates. THROAT: No erythema or exudates. NECK: No masses, no JVD, no thyroid enlargement, no adenopathy. CHEST: No chest wall deformity. Symmetrical expansion. Midsternal incision is clean dry and intact, one mediastinal chest tube and one mediastinal with pleural chest tube and then discontinue, chest tube sites are clean dry and intact Epicardial wires are grounded LUNGS: Equal air entry with no crackles, wheeze, rhonchi or dullness. CVS: Irregular rate and rhythm, normal S1 and S2, no gallops, no murmurs, no rubs ABDOMEN: Soft, nontender. No hepatosplenomegaly, normal bowel sounds, no guarding or rigidity. EXTREMITIES: No clubbing, generalized edema is present no cyanosis, 2+ pulses and upper and lower extremities. MUSCULOSKELETAL: Muscle strength and tone normal. SPINE: No scoliosis or deformity SKIN: No rashes CENTRAL NERVOUS SYSTEM: Sedated, intubated. No focal deficits, tone is normal in all 4 extremities. - Labs CBC & Chem 7: 11/14/20 04:00 11/14/20 04:00 Labs: Abnormal Lab Results - Last 24 Hours (Table) 11/13/20 11/13/20 11/13/20 Range/Units 03:53 10:49 11:55 WBC (3.8-10.6) k/uL RBC (4.30-5.90) m/uL Hgb (13.0-17.5) gm/dL Hct (39.0-53.0) % MCV (80.0-100.0) fL RDW (11.5-15.5) % Neutrophils # (Manual) (1.3-7.7) k/uL Monocytes # (Manual) (0-1.0) k/uL Metamyelocytes # (Man) (0) k/uL Macrocytosis ABG pH 7.25 L (7.35-7.45) ABG pCO2 70 H (35-45) mmHg ABG pO2 70 L (83-108) mmHg ABG HCO3 31 H (21-25) mmol/L ABG Total CO2 33 H (19-24) mmol/L ABG O2 Saturation 92.4 L (94-97) % Potassium (3.5-5.1) mmol/L Chloride (98-107) mmol/L BUN (9-20) mg/dL Creatinine (0.66-1.25) mg/dL Glucose (74-99) mg/dL POC Glucose (mg/dL) 123 H (75-99) mg/dL Calcium (8.4-10.2) mg/dL Magnesium (1.6-2.3) mg/dL Total Protein (6.3-8.2) g/dL Albumin (3.5-5.0) g/dL Procalcitonin 0.29 H (0.02-0.09) ng/mL Digoxin ng/mL 11/13/20 11/13/20 11/13/20 Range/Units 14:04 16:12 19:44 WBC (3.8-10.6) k/uL RBC (4.30-5.90) m/uL Hgb (13.0-17.5) gm/dL Hct (39.0-53.0) % MCV (80.0-100.0) fL RDW (11.5-15.5) % Neutrophils # (Manual) (1.3-7.7) k/uL Monocytes # (Manual) (0-1.0) k/uL Metamyelocytes # (Man) (0) k/uL Macrocytosis ABG pH 7.24 L (7.35-7.45) ABG pCO2 71 H* (35-45) mmHg ABG pO2 64 L (83-108) mmHg ABG HCO3 30 H (21-25) mmol/L ABG Total CO2 32 H (19-24) mmol/L ABG O2 Saturation 89.9 L (94-97) % Potassium (3.5-5.1) mmol/L Chloride (98-107) mmol/L BUN (9-20) mg/dL Creatinine (0.66-1.25) mg/dL Glucose (74-99) mg/dL POC Glucose (mg/dL) 148 H 129 H (75-99) mg/dL Calcium (8.4-10.2) mg/dL Magnesium (1.6-2.3) mg/dL Total Protein (6.3-8.2) g/dL Albumin (3.5-5.0) g/dL Procalcitonin (0.02-0.09) ng/mL Digoxin ng/mL 11/13/20 11/14/20 11/14/20 Range/Units 23:51 03:54 04:00 WBC 27.1 H (3.8-10.6) k/uL RBC 2.50 L (4.30-5.90) m/uL Hgb 8.2 L (13.0-17.5) gm/dL Hct 26.3 L (39.0-53.0) % MCV 105.1 H (80.0-100.0) fL RDW 18.0 H (11.5-15.5) % Neutrophils # (Manual) 24.90 H (1.3-7.7) k/uL Monocytes # (Manual) 1.08 H (0-1.0) k/uL Metamyelocytes # (Man) 0.27 H (0) k/uL Macrocytosis Marked A ABG pH (7.35-7.45) ABG pCO2 (35-45) mmHg ABG pO2 (83-108) mmHg ABG HCO3 (21-25) mmol/L ABG Total CO2 (19-24) mmol/L ABG O2 Saturation (94-97) % Potassium (3.5-5.1) mmol/L Chloride (98-107) mmol/L BUN (9-20) mg/dL Creatinine (0.66-1.25) mg/dL Glucose (74-99) mg/dL POC Glucose (mg/dL) 128 H 128 H (75-99) mg/dL Calcium (8.4-10.2) mg/dL Magnesium (1.6-2.3) mg/dL Total Protein (6.3-8.2) g/dL Albumin (3.5-5.0) g/dL Procalcitonin (0.02-0.09) ng/mL Digoxin ng/mL 11/14/20 11/14/20 11/14/20 Range/Units 04:00 04:55 09:07 WBC (3.8-10.6) k/uL RBC (4.30-5.90) m/uL Hgb (13.0-17.5) gm/dL Hct (39.0-53.0) % MCV (80.0-100.0) fL RDW (11.5-15.5) % Neutrophils # (Manual) (1.3-7.7) k/uL Monocytes # (Manual) (0-1.0) k/uL Metamyelocytes # (Man) (0) k/uL Macrocytosis ABG pH 7.25 L (7.35-7.45) ABG pCO2 65 H (35-45) mmHg ABG pO2 63 L (83-108) mmHg ABG HCO3 29 H (21-25) mmol/L ABG Total CO2 31 H (19-24) mmol/L ABG O2 Saturation 90.5 L (94-97) % Potassium 5.7 H (3.5-5.1) mmol/L Chloride 111 H (98-107) mmol/L BUN 85 H (9-20) mg/dL Creatinine 1.90 H (0.66-1.25) mg/dL Glucose 124 H (74-99) mg/dL POC Glucose (mg/dL) 140 H (75-99) mg/dL Calcium 7.7 L (8.4-10.2) mg/dL Magnesium 2.9 H (1.6-2.3) mg/dL Total Protein 5.1 L (6.3-8.2) g/dL Albumin 2.6 L (3.5-5.0) g/dL Procalcitonin (0.02-0.09) ng/mL Digoxin 2.6 H* ng/mL Microbiology - Last 24 Hours (Table) 11/10/20 12:16 Blood Culture - Preliminary Blood No Growth after 72 hours 11/10/20 12:12 Blood Culture - Preliminary Blood No Growth after 72 hours Assessment and Plan Plan: Assessment: #1. multivessel coronary artery disease, symptomatic, post three-vessel bypass surgery with venous graft and aortic valve replacement. The patient is postop day #9. #2. Acute hypoxic respiratory failure related to underlying bilateral pneumonia, and ARDS, severe. Gram-negative pneumonia, possibly ventilator associated versus hospital acquired. Patient is status post bronchoscopy and bronchial alveolar lavage, with a bronchoscopy cultures showing stenotrophomonas Citrobacter. Currently is on a combination of Fortaz and Bactrim. #3. Atrial fibrillation with RVR, currently in sinus mechanism. He is on oral digoxin and amiodarone #4. Acute blood loss anemia, normal outcome of sternotomy, coronary artery bypass grafting and aortic valve replacement surgery. Patient has required multiple blood products #5. Acute kidney injury related to ATN #6. History of subclavian artery stenosis #5. Coronary artery disease with previous stenting of the RCA #6. History of COPD preoperative FEV1 of 66% of predicted and DLCO of 18% of predicted value #7. History of extensive right upper lobe pneumonia #8. History of right upper lobe pulmonary nodule identified on the computed tomography scan of the chest #9. Hypertension #10. Hyperlipidemia #11. Degenerative arthritis #12. Pulmonary hypertension Plan: Today's chest x-ray blood gas have been reviewed Patient has been seen and examined along with Dr. Wynn He was given an additional dose of IV Lasix Currently O2 sat is 98%, on FiO2 of 90% and PEEP of 22 Continue With IV steroids, nebulized treatments Continue new antibiotics per ID service recommendations Patient's kidney function is worsening and nephrology has been consulted Continue nutritional support Rate control and anticoagulation medications per CT surgery No sedation holiday today in no spontaneous breathing trials We'll continue to attempt to wean down FiO2 Case discussed with CT surgery and the plan is for possible tracheostomy and PEG tube placement this week on We'll follow I performed a history & physical examination of the patient and discussed their management with my nurse practitioner, Arely Basilio. I reviewed the nurse practitioner's note and agree with the documented findings and plan of care. Lung sounds are positive for diminished breath sounds throughout the lung moore. The findings and the impression was discussed with the patient. I attest to the documentation by the nurse practitioner. Time with Patient: Greater than 30
[2020-11-14] MEDS: ASCORBIC ACID 500 MG TAB PO SCH (09:39)
[2020-11-14] MEDS: METOPROLOL TARTRATE 25 MG TAB PO SCH ×2 (09:39→20:25)
[2020-11-14] MEDS: INSULIN DETEMIR (LEVEMIR) 100 UNIT/ML SYR SQ SCH (09:39)
[2020-11-14] MEDS: HEPARIN SODIUM,PORCINE/PF 5,000 UNIT/0.5 ML SYRINGE SQ SCH ×2 (09:40→16:39)
[2020-11-14] MEDS: FERROUS SULFATE ORAL ELIXIR 300 MG/5 ML CUP OG-TUBE SCH ×2 (09:40→20:23)
[2020-11-14] MEDS: ASPIRIN 325 MG TAB PO SCH (09:40)
[2020-11-14] MEDS: AMIODARONE 200 MG TAB PO SCH ×2 (09:40→20:21)
[2020-11-14] MEDS: CHLORHEXIDINE GLUCONATE 15 ML CUP MUCOUS MEM SCH ×2 (09:40→20:21)
[2020-11-14] MEDS: methylPREDNISolone SOD SUCCI 40 MG/ML 1 ML VIAL IV SCH (09:40)
[2020-11-14] MEDS: SULFAMETHOX-TMP 800-160MG 1 EACH TAB PO SCH ×2 (09:40→20:22)
[2020-11-14] MEDS: PANTOPRAZOLE 40 MG/10 ML VIAL IVP SCH (09:41)
[2020-11-14] MEDS: MULTIVITAMINS, THERA 1 EACH TAB PO SCH (09:41)
--- NOTE | 2020-11-14 09:49 | P.NPCON ---
History of Present Illness - Reason for Consult acute renal failure - History of Present Illness Reason for consultation: Acute kidney injury History of present illness: Patient is a 75-year-old male seen in renal consultation for acute kidney injury. Patient has no history of kidney disease and his renal function was normal on admission. Today his creatinine is up to 1.9. Urine output is about 40-60 mL an hour. Patient presented to the hospital on 11/04/2020 for CABG and aortic valve replacement. Patient has been intubated since. He is currently on 8 mics of Huber-Synephrine. He also underwent bronchoscopy this admission and is noted to have pneumonia. Patient's washings were positive for Citrobacter as well as stenotrophomonas. He is on antibiotics and ID is following. He is receiving tube feeds. Potassium level V.7 this morning. He is not acidotic. He is a 90% FiO2 and high PEEP. Trach and PEG are being considered. Patient's echocardiogram revealed ejection fraction of 50-55%. He was on digoxin which has been discontinued. He is also receiving Bactrim. Vital signs are stable. On vasopressor support. General: The patient appeared well nourished and normally developed. HEENT: Intubated. OG tube noted. LUNGS: Breath sounds decreased. HEART: Rate and Rhythm are regular. ABDOMEN: Soft, no distention. EXTREMITITES: Trace edema. Past Medical History Past Medical History: Coronary Artery Disease (CAD), Hyperlipidemia, Hypertens ion, Myocardial Infarction ([place]) Additional Past Medical History / Comment(s): Coronary artery disease, previous coronary stenting of the RCA, previous myocardial infarction, COPD, previous right upper lobe pneumonia, right upper lobe pulmonary nodule that needs to be further investigated and it showed increased evident activity on PET scan, hypertension, hyperlipidemia, elevated PSA Last Myocardial Infarction Date:: UNKNOWN History of Any Multi-Drug Resistant Organisms: None Reported Past Surgical History: Heart Catheterization, Heart Catheterization With Stent Additional Past Surgical History / Comment(s): HEART CATHS X3, Past Anesthesia/Blood Transfusion Reactions: No Reported Reaction Additional Past Anesthesia/Blood Transfusion Reaction / Comment(s): HAS NEVER RECEIVED ANESTHESIA. Date of Last Stent Placement:: 3-4 YRS AGO? Smoking Status: Former smoker - Past Family History Father Family Medical History: Cancer Additional Family Medical History / Comment(s): COLON CANCER Medications and Allergies Home Medications Medication Instructions Recorded Confirmed Type Ascorbic Acid [Vitamin C] 1,000 mg PO DAILY 08/22/15 10/24/20 History Aspirin EC [Ecotrin Low Dose] 81 mg PO DAILY 08/22/15 11/04/20 History Atorvastatin Calcium [Lipitor] 80 mg PO HS 08/22/15 10/24/20 History Ezetimibe [Zetia] 10 mg PO HS 08/22/15 10/24/20 History Metoprolol Tartrate [Lopressor] 50 mg PO BID 08/22/15 10/24/20 History Multivitamins, Thera [Multivitamin 1 tab PO DAILY 08/22/15 10/24/20 History (formulary)] [place]-3 Fatty Acids/Fish Oil [Fish 1 cap PO DAILY 08/22/15 11/04/20 History Oil 1,000 mg Softgel] Clopidogrel [Plavix] 75 mg PO DAILY #90 tab 10/16/19 10/24/20 Rx Nitroglycerin Sl Tabs [Nitrostat] 0.4 mg SUBLINGUAL Q5M PRN #25 tab 10/17/19 10/24/20 Rx Biotin 10,000 mcg PO DAILY 10/06/20 10/24/20 History Furosemide [Lasix] 40 mg PO DAILY 10/06/20 10/24/20 History amLODIPine BESYLATE [Norvasc] 2.5 mg PO DAILY 10/06/20 11/04/20 History Glucos Sul 2Kcl/MSM/Chond/C/Mn 2 each PO DAILY 10/24/20 11/04/20 History [Glucosamine Chondroitin Cap] Allergies Allergy/AdvReac Type Severity Reaction Status Date / Time No Known Allergies Allergy Verified 11/04/20 06:08 Physical Exam Vitals: Vital Signs Temp Pulse Resp Pulse Ox 11/14/20 09:00 71 34 H 92 L 11/14/20 08:30 70 34 H 93 L 11/14/20 08:00 97.8 F 70 34 H 94 L 11/14/20 07:58 71 11/14/20 07:42 73 11/14/20 07:30 72 34 H 94 L 11/14/20 07:00 70 34 H 91 L 11/14/20 06:30 72 34 H 93 L 11/14/20 06:00 70 34 H 90 L 11/14/20 05:30 71 34 H 91 L 11/14/20 05:00 70 34 H 93 L 11/14/20 04:30 72 34 H 91 L 11/14/20 04:00 71 34 H 91 L 11/14/20 03:30 71 34 H 91 L 11/14/20 03:00 70 34 H 92 L 11/14/20 02:30 70 34 H 92 L 11/14/20 02:00 70 34 H 92 L 11/14/20 01:30 70 34 H 92 L 11/14/20 01:00 73 34 H 92 L 11/14/20 00:30 70 34 H 90 L 11/14/20 00:00 73 35 H 92 L 11/13/20 23:30 72 34 H 92 L 11/13/20 23:00 71 34 H 92 L 11/13/20 22:30 72 34 H 92 L 11/13/20 22:00 73 34 H 92 L 11/13/20 21:30 71 34 H 92 L 11/13/20 21:00 71 34 H 91 L 11/13/20 20:30 70 34 H 91 L 11/13/20 20:00 97.7 F 70 34 H 93 L 11/13/20 19:51 70 11/13/20 19:34 70 11/13/20 19:30 70 34 H 90 L 11/13/20 19:00 70 34 H 93 L 11/13/20 18:30 70 34 H 92 L 11/13/20 18:00 70 34 H 93 L 11/13/20 17:30 70 34 H 93 L 11/13/20 17:00 70 34 H 93 L 11/13/20 16:30 70 34 H 92 L 11/13/20 16:00 97.7 F 70 34 H 96 11/13/20 15:45 70 11/13/20 15:30 71 34 H 93 L 11/13/20 15:29 72 11/13/20 15:00 70 34 H 92 L 11/13/20 14:30 70 34 H 92 L 11/13/20 14:00 70 34 H 92 L 11/13/20 13:30 70 34 H 91 L 11/13/20 13:00 70 34 H 91 L 11/13/20 12:30 70 34 H 95 11/13/20 12:00 98.1 F 70 34 H 95 11/13/20 11:32 70 11/13/20 11:30 70 34 H 94 L 11/13/20 11:25 70 11/13/20 11:00 70 34 H 94 L 11/13/20 10:30 70 34 H 94 L 11/13/20 10:00 70 34 H 94 L Intake and Output 11/13/20 11/14/20 11/14/20 22:59 06:59 14:59 Intake Total 2440.645 1622.363 295 Output Total 245 290 140 Balance 2195.645 1332.363 155 Intake: IV 134 309 94 D5W 60 160 60 Pressure Bag 24 24 9 cefTAZidime 2 gm In 50 125 25 Sodium Chloride 0.9% 100 ml @ 25 mls/hr IVPB Q8H [facility] Rx#:[id number] Intake, IV Titration 1724.645 797.363 Amount Dextrose 5% in Water 1, 100 000 ml @ 20 mls/hr IV . Q24H [facility] Rx#:[id number] Phenylephrine 40 mg In 174.645 447.363 Sodium Chloride 0.9% 250 ml @ 0.5 MCG/KG/MIN 18. 498 mls/hr IV .[id number] [facility] Rx#:[id number] Sodium Chloride 0.9% 500 500 ml 500 ml @ 999 mls/hr IV .Q31M [facility] Rx#:[id number] Sodium Chloride 0.9% 500 500 ml 500 ml @ 999 mls/hr IV .Q31M [facility] Rx#:[id number] fentaNYL (PF) 2,500 mcg 250 250 In Sodium Chloride 0.9% 200 ml @ Per Protocol IV .Q0M [facility] Rx#:[id number] propofoL 1,000 mg In 200 100 Empty Bag 1 bag @ Titrate IV .Q0M [facility] Rx#: [id number] Tube Feeding 492 456 171 Other 90 60 30 Output: Urine 245 290 140 Other: Voiding Method Indwelling Catheter Indwelling Catheter Indwelling Catheter # Bowel Movements 1 Weight 105.1 kg ABP, PAP, CO, CI - Last 8 Hours Arterial Blood Pressure 134/51 Arterial Blood Pressure 146/53 Arterial Blood Pressure 159/59 Arterial Blood Pressure 137/51 Arterial Blood Pressure 141/51 Arterial Blood Pressure 144/51 Arterial Blood Pressure 126/46 Arterial Blood Pressure 125/45 Arterial Blood Pressure 127/47 Arterial Blood Pressure 124/46 Arterial Blood Pressure 125/47 Arterial Blood Pressure 120/47 Arterial Blood Pressure 122/48 Arterial Blood Pressure 127/48 Arterial Blood Pressure 142/51 Cardiac Output 5.2 Cardiac Output 5.2 Cardiac Output 5.2 Cardiac Output 5.2 Cardiac Index 2.6 Cardiac Index 2.6 Cardiac Index 2.6 Cardiac Index 2.6 Results - Lab Results Most recent lab results ABG pH 7.25 (7.35-7.45) L 11/14/20 04:55 ABG pCO2 65 mmHg (35-45) H 11/14/20 04:55 ABG pO2 63 mmHg (83-108) L 11/14/20 04:55 ABG HCO3 29 mmol/L (21-25) H 11/14/20 04:55 ABG O2 Saturation 90.5 % (94-97) L 11/14/20 04:55 Calcium 7.7 mg/dL (8.4-10.2) L 11/14/20 04:00 Magnesium 2.9 mg/dL (1.6-2.3) H 11/14/20 04:00 11/14/20 04:00 11/14/20 04:00 Assessment and Plan Plan: Assessment: 1. Acute kidney injury secondary to ATN secondary to septic shock. Creatinine 1.9 today. Baseline creatinine near 1. 2. Pneumonia maintained on antibiotics. 3. Status post CABG and aortic valve replacement on 11/04/2020. 4. Acute hypoxic respiratory failure. 5. Hyperkalemia secondary to acute kidney injury and bactrim. Plan: Lasix 40 mg IV once today. Tube feeds to be changed to Nepro. Will discuss with ID if alternative to Bactrim can be used. Repeat potassium level this evening. Avoid nephrotoxins. Continue to monitor renal function and urine output. Check renal ultrasound. Wean FiO2 and his oppressors. Thank you for the consultation. I will continue to follow the patient with you during his hospital stay.
[2020-11-14 10:35] VITALS: BMI 32.3
[2020-11-14 11:25] LABS: Glucose,Whole Blood 172 mg/dL (75-99)
--- NOTE | 2020-11-14 11:46 | US ---
EXAMINATION TYPE: US kidneys/renal and bladder DATE OF EXAM: 11/14/2020 COMPARISON: CT 09/28/10, PET 11/01/20 CLINICAL HISTORY: ha. post cardiac surgery EXAM MEASUREMENTS: Right Kidney: 11.6 x 5.8 x 5.5 cm Left Kidney: 12.0 x 6.1 x 5.3 cm Post Void Residual Volume: Bladder empty mL Right Kidney: No hydronephrosis or masses seen Left Kidney: No hydronephrosis or masses seen Bladder: Empty Bilateral Jets seen: No Normal Post Void Residual: Not calculated There is no evidence for hydronephrosis at this point in time. No nephrolithiasis is seen. No bettye s are identified. The urinary bladder is anechoic. ICU patient on ventilator unable to hold breath or change position. Large complex mass adjacent to vs part of spleen. Free fluid noted next to mass, ? area of air due to shadowing within. IMPRESSION: Limited study although the examination is somewhat limited.
--- NOTE | 2020-11-14 12:54 | P.PN ---
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 He follows in the office with Dr. Bowling. We are on consult for post operative management. 11/04/20 Patient underwent aortic valve replacement and coronary artery bypass grafting 3 with a reverse saphenous vein graft off the aorta to the circumflex coronary artery, the left anterior descending coronary artery and the posterior descending coronary artery with bilateral lower extremity greater saphenous vein endoscopic harvesting. Clip ligation of the left atrial appendage. Patient course has been complicated by poor oxygenation, ongoing hypoxemia and prolonged mechanical ventilation, and paroxysmal atrial fibrillation. Recent repeat echocardiogram showed preserved LV systolic function. 11/14/20 Patient seen this morning in the intensive care unit. Patient continues to be intubated and on mechanical ventilation. Current mechanical ventilator settings of AC 34, FiO2 90% and a PEEP of 22. Patient currently on IV propofol, IV fentanyl, IV phenylephrine, IV Lasix 40mg once, amiodarone 400mg BID, aspirin 325mg, atorvastatin 80mg daily, zetia 10mg daily, metoprolol tartrate 25mg BID. BP 147/49 HR 70s. Maintaining sinus mechanism. No further episodes of atrial fibrillation. Laboratory data review WBC 27.1, hemoglobin 8.2, platelets 268, sodium 135, potassium 5.7, BUN 85, serum creatinine 1.9, magnesium 4.8, digoxin 2.6. Digoxin discontinued today per nephrology. GENERAL: Intubated and sedated on propofol and fentanyl NECK: Supple without JVD. Right IJ [place]daleno catheter in place LUNGS: Intubated. On mechanical ventilator. Respiration equal and symmetrical HEART: Regular rate and rhythm without murmurs, rubs or gallops. S1 and S2 heard. A/V epicardial pacemaker wires present EXTREMITIES: No clubbing or cyanosis. Peripheral pulses intact. Left radial arterial line placed ASSESSMENT Severe triple-vessel coronary artery disease, status post 3 vessel CABG 11/04/20 Moderate to severe aortic valve stenosis, status post aortic valve replacement 11/04/20 Prolonged mechanism ventilation post operatively Acute hypoxic respiratory failure Known right upper lobe pulmonary nodule, suspicious for malignancy based on PET scan findings COPD History of hypertension Hyperlipidemia History of CAD with previous stenting RCA New onset Paroxysmal atrial fibrillation, currently in normal sinus rhythm, on PO amiodarone started 11/12 Anemia Hyperkalemia PLAN Continue medical management with aspirin, statin, zetia, beta paul, amiodarone 400mg BID Pulmonary following, wean to extubate with ventilator management per pulmonary Trach and PEG are being considered Post operative management per CT surgery Further recommendations based on clinical course Nurse Practitioner note has been reviewed, I agree with a documented findings and plan of care. Patient was seen and examined. Objective - Vital Signs Vital signs: Vital Signs Temp 98 F 11/14/20 12:00 Pulse 71 11/14/20 12:00 Resp 34 H 11/14/20 12:00 BP 106/52 11/11/20 22:00 Pulse Ox 94 L 11/14/20 12:00 Intake & Output 11/13/20 11/14/20 11/14/20 18:59 06:59 18:59 Intake Total 3438.082 2372.363 725.637 Output Total 395 410 260 Balance 3043.082 1962.363 465.637 Weight 105.1 kg 105.1 kg Intake: IV 216 431 163 D5W 220 120 Lactated Ringers 1,000 ml 80 @ 20 mls/hr IV .Q24H ON LICENSE OF [facility] Rx#:[id number] Meropenem 1 gm In Sodium 100 Chloride 0.9% 100 ml @ 33 .3 mls/hr IVPB Q8HR ON LICENSE OF [facility] Rx#:[id number] Pressure Bag 36 36 18 cefTAZidime 2 gm In 175 25 Sodium Chloride 0.9% 100 ml @ 25 mls/hr IVPB Q8H ON LICENSE OF [facility] Rx#:[id number] Intake, IV Titration 2278.082 1167.363 160.637 Amount Dextrose 5% in Water 1, 160 20 000 ml @ 20 mls/hr IV . Q24H [facility] Rx#:[id number] Phenylephrine 40 mg In 468.082 447.363 60.637 Sodium Chloride 0.9% 250 ml @ 0.5 MCG/KG/MIN 18. 498 mls/hr IV .[id number] ON LICENSE OF [facility] Rx#:[id number] Sodium Chloride 0.9% 500 500 ml 500 ml @ 999 mls/hr IV .Q31M [facility] Rx#:[id number] Sodium Chloride 0.9% 500 500 ml 500 ml @ 999 mls/hr IV .Q31M [facility] Rx#:[id number] cefTAZidime 2 gm In 100 Sodium Chloride 0.9% 100 ml @ 25 mls/hr IVPB Q8H ON LICENSE OF [facility] Rx#:[id number] fentaNYL (PF) 2,500 mcg 250 500 In Sodium Chloride 0.9% 200 ml @ Per Protocol IV .Q0M ON LICENSE OF [facility] Rx#:[id number] propofoL 1,000 mg In 300 200 100 Empty Bag 1 bag @ Titrate IV .Q0M ON LICENSE OF [facility] Rx#: [id number] Tube Feeding 764 684 342 Other 180 90 60 Output: Urine 395 410 260 Other: Voiding Method Indwelling Catheter Indwelling Catheter Indwelling Catheter # Bowel Movements 1 ABP, PAP, CO, CI - Last Documented Arterial Blood Pressure 147/49 Pulmonary Artery Pressure 69/37 Cardiac Output 5.2 Cardiac Index 2.6 - Labs CBC & Chem 7: 11/14/20 04:00 11/14/20 04:00 Labs: Abnormal Lab Results - Last 24 Hours (Table) 11/13/20 11/13/20 11/13/20 Range/Units 03:53 14:04 16:12 WBC (3.8-10.6) k/uL RBC (4.30-5.90) m/uL Hgb (13.0-17.5) gm/dL Hct (39.0-53.0) % MCV (80.0-100.0) fL RDW (11.5-15.5) % Neutrophils # (Manual) (1.3-7.7) k/uL Monocytes # (Manual) (0-1.0) k/uL Metamyelocytes # (Man) (0) k/uL Macrocytosis ABG pH 7.24 L (7.35-7.45) ABG pCO2 71 H* (35-45) mmHg ABG pO2 64 L (83-108) mmHg ABG HCO3 30 H (21-25) mmol/L ABG Total CO2 32 H (19-24) mmol/L ABG O2 Saturation 89.9 L (94-97) % Potassium (3.5-5.1) mmol/L Chloride (98-107) mmol/L BUN (9-20) mg/dL Creatinine (0.66-1.25) mg/dL Glucose (74-99) mg/dL POC Glucose (mg/dL) 148 H (75-99) mg/dL Calcium (8.4-10.2) mg/dL Magnesium (1.6-2.3) mg/dL Total Protein (6.3-8.2) g/dL Albumin (3.5-5.0) g/dL Procalcitonin 0.29 H (0.02-0.09) ng/mL Digoxin ng/mL 11/13/20 11/13/20 11/14/20 Range/Units 19:44 23:51 03:54 WBC (3.8-10.6) k/uL RBC (4.30-5.90) m/uL Hgb (13.0-17.5) gm/dL Hct (39.0-53.0) % MCV (80.0-100.0) fL RDW (11.5-15.5) % Neutrophils # (Manual) (1.3-7.7) k/uL Monocytes # (Manual) (0-1.0) k/uL Metamyelocytes # (Man) (0) k/uL Macrocytosis ABG pH (7.35-7.45) ABG pCO2 (35-45) mmHg ABG pO2 (83-108) mmHg ABG HCO3 (21-25) mmol/L ABG Total CO2 (19-24) mmol/L ABG O2 Saturation (94-97) % Potassium (3.5-5.1) mmol/L Chloride (98-107) mmol/L BUN (9-20) mg/dL Creatinine (0.66-1.25) mg/dL Glucose (74-99) mg/dL POC Glucose (mg/dL) 129 H 128 H 128 H (75-99) mg/dL Calcium (8.4-10.2) mg/dL Magnesium (1.6-2.3) mg/dL Total Protein (6.3-8.2) g/dL Albumin (3.5-5.0) g/dL Procalcitonin (0.02-0.09) ng/mL Digoxin ng/mL 11/14/20 11/14/20 11/14/20 Range/Units 04:00 04:00 04:55 WBC 27.1 H (3.8-10.6) k/uL RBC 2.50 L (4.30-5.90) m/uL Hgb 8.2 L (13.0-17.5) gm/dL Hct 26.3 L (39.0-53.0) % MCV 105.1 H (80.0-100.0) fL RDW 18.0 H (11.5-15.5) % Neutrophils # (Manual) 24.90 H (1.3-7.7) k/uL Monocytes # (Manual) 1.08 H (0-1.0) k/uL Metamyelocytes # (Man) 0.27 H (0) k/uL Macrocytosis Marked A ABG pH 7.25 L (7.35-7.45) ABG pCO2 65 H (35-45) mmHg ABG pO2 63 L (83-108) mmHg ABG HCO3 29 H (21-25) mmol/L ABG Total CO2 31 H (19-24) mmol/L ABG O2 Saturation 90.5 L (94-97) % Potassium 5.7 H (3.5-5.1) mmol/L Chloride 111 H (98-107) mmol/L BUN 85 H (9-20) mg/dL Creatinine 1.90 H (0.66-1.25) mg/dL Glucose 124 H (74-99) mg/dL POC Glucose (mg/dL) (75-99) mg/dL Calcium 7.7 L (8.4-10.2) mg/dL Magnesium 2.9 H (1.6-2.3) mg/dL Total Protein 5.1 L (6.3-8.2) g/dL Albumin 2.6 L (3.5-5.0) g/dL Procalcitonin (0.02-0.09) ng/mL Digoxin 2.6 H* ng/mL 11/14/20 11/14/20 Range/Units 09:07 11:23 WBC (3.8-10.6) k/uL RBC (4.30-5.90) m/uL Hgb (13.0-17.5) gm/dL Hct (39.0-53.0) % MCV (80.0-100.0) fL RDW (11.5-15.5) % Neutrophils # (Manual) (1.3-7.7) k/uL Monocytes # (Manual) (0-1.0) k/uL Metamyelocytes # (Man) (0) k/uL Macrocytosis ABG pH (7.35-7.45) ABG pCO2 (35-45) mmHg ABG pO2 (83-108) mmHg ABG HCO3 (21-25) mmol/L ABG Total CO2 (19-24) mmol/L ABG O2 Saturation (94-97) % Potassium (3.5-5.1) mmol/L Chloride (98-107) mmol/L BUN (9-20) mg/dL Creatinine (0.66-1.25) mg/dL Glucose (74-99) mg/dL POC Glucose (mg/dL) 140 H 172 H (75-99) mg/dL Calcium (8.4-10.2) mg/dL Magnesium (1.6-2.3) mg/dL Total Protein (6.3-8.2) g/dL Albumin (3.5-5.0) g/dL Procalcitonin (0.02-0.09) ng/mL Digoxin ng/mL Microbiology - Last 24 Hours (Table) 11/10/20 12:16 Blood Culture - Preliminary Blood No Growth after 72 hours 11/10/20 12:12 Blood Culture - Preliminary Blood No Growth after 72 hours
--- NOTE | 2020-11-14 15:21 | P.PN ---
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 Currently he remains in the ICU intubated and sedated. He is on aspirin 325 mg. Also he has evidence of pneumonia secondary to Citrobacter covered with cefepime, he had low-grade fever 2-3 days ago at 100.8, been afebrile for the last 24 hours. Also he is on Solu-Medrol 40 mg for his COPD exacerbation. He is also on insulin drip Several consultants on the case He is tachypneic but blood pressure is a stable Labs reviewed and they looked unremarkable He is kept on aspirin 325 mg daily 11/09/2020 Patient is status post CABG and aortic valve replacement on 11/04. He is still on mechanical ventilation. He failed weaning trial, he underwent bronchoscopy today which showed basically patent airways with only some distal secretions were sucked out. He is still tachypneic around 26-34 Calcitonin still elevated 0.1, he has leukocytosis of 15 gait. No more fever, last fever was on 11/06 around 100. He still He remains on cefepime 2 g twice a day, Solu-Medrol 40 mg. He still on insulin drip while he is on steroids He is on aspirin 325 mg 11/10/2020 Patient remains in the ICU sedated and intubated with pulmonary/critical care team on the case. His PEEP 12 and FiO2 100% is overall doing well as is becoming hard for him to come off the ventilation. Patient is significantly tachypneic at 30 breath per minute, afebrile. He has some leukocytosis around 20 K but also he is on no drips. IV vancomycin added today. Bronchoalveolar lavage culture growing gram-negative bacilli, final results to come back. Patient also covered with cefepime Also started on amiodarone drip today. Continue with aspirin 325 mg. Continue Solu-Medrol. 11/11/2020 pt remains inthe icu intubated and sedated . he is followed closely by pulmonary/critical care team who help in vent management , he was difficult to extubate and needed high PEEP at 14 and FiO2 of 60 % , secondary to pna , he is status bronchoscope an BAL showing stenotrophomonas maltophilia and gram negative bacilli AND his antibiotics were switched to meropenem for better bacterial coverage he is tachypneic 28 bpm , with some improved leukocytosis 14k, Hb 7.4 and Na 146 CXR showing mild improvement he is also on pressors by cardiothoraci team who started him on phenylephrine, he is kept on insulin drip and iv solumedrol with possible started to be tapered down tomorrow as no wheezing. 11/12/2020 Patient in ICU intubated and sedated in critical condition. This morning he needed more PEEP was increased to 22 and FiO2 was 100% however later on during the day was lowered to 80%. No more fever but he is tachypneic. Leukocytosis of 20 K. Hemoglobin is stable at 8.2. Sodium improved at 145. He remains on Medrol 40 mg and antibiotics adjusted yesterday to meropenem with sputum culture is growing stenotrophomonas maltophilia and Citrobacter. Chest x-ray showing edema versus ARDS with some possible pleural effusion Once this insulin drip was switched to Levemir 24 years with close monitoring of glucose is also on metoprolol and amiodarone 400 mg twice a day several consultants on the case including pulmonary/cardiology and cardiothoracic surgery primary team 11/13/2020 Patient remains in the ICU intubated and sedated with pulmonary/critical care team following her closely Distal needs on high PEEP of around 20 and FiO2 is around 80% when I saw the patient. Vitals reviewed. Patient with no fever however he still breathing tachypneic at 34 breath per minute. Labs are reviewed. He has leukocytosis of 23K per his hemoglobin is 8.0. And platelets are normal. His creatinine went up slightly 1.1 up to 1.3 while sodium improved at 147. Because of this received 1 L of normal saline by pulmonary/critical care team. His chest x-ray showing CHF, versus pneumonia versus RDS. His covered with antibiotics per ICU/critical care team and currently on meropen Objective - Vital Signs Vital signs: Vital Signs Temp 97.7 F 11/13/20 08:00 Pulse 70 11/13/20 09:00 Resp 34 H 11/13/20 09:00 BP 106/52 11/11/20 22:00 Pulse Ox 96 11/13/20 09:00 Intake & Output 11/12/20 11/13/20 11/13/20 18:59 06:59 18:59 Intake Total 2033.248 1558.314 559 Output Total 645 785 100 Balance 1388.248 773.314 459 Weight 100 kg Intake: IV 456 405.9 169 Lactated Ringers 1,000 ml 220 270 60 @ 20 mls/hr IV .Q24H [facility] Rx#:[id number] Meropenem 1 gm In Sodium 200 99.9 100 Chloride 0.9% 100 ml @ 33 .3 mls/hr IVPB Q8HR [facility] Rx#:[id number] Pressure Bag 36 36 9 Intake, IV Titration 937.248 865.414 100 Amount Insulin Regular 100 unit 25.923 In Sodium Chloride 0.9% 100 ml @ Per Protocol IV .Q0M [facility] Rx#:[id number] Phenylephrine 40 mg In 361.325 90.110 Sodium Chloride 0.9% 250 ml @ 0.5 MCG/KG/MIN 18. 498 mls/hr IV .[id number] [facility] Rx#:[id number] fentaNYL (PF) 2,500 mcg 250 475.304 In Sodium Chloride 0.9% 200 ml @ Per Protocol IV .Q0M [facility] Rx#:[id number] propofoL 1,000 mg In 300 300 100 Empty Bag 1 bag @ Titrate IV .Q0M [facility] Rx#: [id number] Tube Feeding 550 257 200 Other 90 30 90 Output: Urine 645 785 100 Other: Voiding Method Indwelling Catheter Indwelling Catheter ABP, PAP, CO, CI - Last Documented Arterial Blood Pressure 117/44 Pulmonary Artery Pressure 69/37 Cardiac Output 5.2 Cardiac Index 2.6 - Exam -GENERAL: The patient is sedated and intubated HEENT: Pupils are round and equally reacting to light. EOMI. No scleral icterus. No conjunctival pallor. Normocephalic, atraumatic. No pharyngeal erythema. No thyromegaly. CARDIOVASCULAR: S1 and S2 present. No murmurs, rubs, or gallops. -PULMONARY: Chest is clear to auscultation, bilateral crepitation ABDOMEN: Soft, nontender, nondistended, normoactive bowel sounds. No palpable organomegaly. MUSCULOSKELETAL: No joint swelling or deformity. EXTREMITIES: No cyanosis, clubbing, or pedal edema. NEUROLOGICAL: Gross neurological examination did not reveal any focal deficits. SKIN: No rashes. no petechiae. - Labs CBC & Chem 7: 11/14/20 04:00 11/14/20 04:00 Labs: Abnormal Lab Results - Last 24 Hours (Table) 11/12/20 11/12/20 11/12/20 Range/Units 09:17 09:53 11:35 WBC (3.8-10.6) k/uL RBC (4.30-5.90) m/uL Hgb (13.0-17.5) gm/dL Hct (39.0-53.0) % MCV (80.0-100.0) fL RDW (11.5-15.5) % Neutrophils # (Manual) (1.3-7.7) k/uL Lymphocytes # (Manual) (1.0-4.8) k/uL Monocytes # (Manual) (0-1.0) k/uL ABG pH 7.26 L 7.33 L (7.35-7.45) ABG pCO2 65 H 62 H (35-45) mmHg ABG pO2 51 L* 126 H (83-108) mmHg ABG HCO3 29 H 33 H (21-25) mmol/L ABG Total CO2 31 H 35 H (19-24) mmol/L ABG O2 Saturation 82.0 L 99.0 H (94-97) % Sodium (137-145) mmol/L Potassium (3.5-5.1) mmol/L Chloride (98-107) mmol/L BUN (9-20) mg/dL Creatinine (0.66-1.25) mg/dL Glucose (74-99) mg/dL POC Glucose (mg/dL) 134 H (75-99) mg/dL Calcium (8.4-10.2) mg/dL Magnesium (1.6-2.3) mg/dL Total Protein (6.3-8.2) g/dL Albumin (3.5-5.0) g/dL 11/12/20 11/12/20 11/12/20 Range/Units 14:00 15:49 19:56 WBC (3.8-10.6) k/uL RBC (4.30-5.90) m/uL Hgb (13.0-17.5) gm/dL Hct (39.0-53.0) % MCV (80.0-100.0) fL RDW (11.5-15.5) % Neutrophils # (Manual) (1.3-7.7) k/uL Lymphocytes # (Manual) (1.0-4.8) k/uL Monocytes # (Manual) (0-1.0) k/uL ABG pH 7.33 L (7.35-7.45) ABG pCO2 58 H (35-45) mmHg ABG pO2 302 H (83-108) mmHg ABG HCO3 31 H (21-25) mmol/L ABG Total CO2 32 H (19-24) mmol/L ABG O2 Saturation 100.0 H (94-97) % Sodium (137-145) mmol/L Potassium (3.5-5.1) mmol/L Chloride (98-107) mmol/L BUN (9-20) mg/dL Creatinine (0.66-1.25) mg/dL Glucose (74-99) mg/dL POC Glucose (mg/dL) 132 H 154 H (75-99) mg/dL Calcium (8.4-10.2) mg/dL Magnesium (1.6-2.3) mg/dL Total Protein (6.3-8.2) g/dL Albumin (3.5-5.0) g/dL 11/12/20 11/13/20 11/13/20 Range/Units 23:28 03:53 03:53 WBC 23.0 H (3.8-10.6) k/uL RBC 2.43 L (4.30-5.90) m/uL Hgb 8.0 L (13.0-17.5) gm/dL Hct 25.2 L (39.0-53.0) % MCV 103.4 H (80.0-100.0) fL RDW 18.0 H (11.5-15.5) % Neutrophils # (Manual) 21.16 H (1.3-7.7) k/uL Lymphocytes # (Manual) 0.69 L (1.0-4.8) k/uL Monocytes # (Manual) 1.15 H (0-1.0) k/uL ABG pH (7.35-7.45) ABG pCO2 (35-45) mmHg ABG pO2 (83-108) mmHg ABG HCO3 (21-25) mmol/L ABG Total CO2 (19-24) mmol/L ABG O2 Saturation (94-97) % Sodium 147 H (137-145) mmol/L Potassium 5.3 H (3.5-5.1) mmol/L Chloride 110 H (98-107) mmol/L BUN 69 H (9-20) mg/dL Creatinine 1.32 H (0.66-1.25) mg/dL Glucose 117 H (74-99) mg/dL POC Glucose (mg/dL) 138 H (75-99) mg/dL Calcium 7.9 L (8.4-10.2) mg/dL Magnesium 2.9 H (1.6-2.3) mg/dL Total Protein 5.0 L (6.3-8.2) g/dL Albumin 2.5 L (3.5-5.0) g/dL 11/13/20 11/13/20 11/13/20 Range/Units 03:53 05:12 08:32 WBC (3.8-10.6) k/uL RBC (4.30-5.90) m/uL Hgb (13.0-17.5) gm/dL Hct (39.0-53.0) % MCV (80.0-100.0) fL RDW (11.5-15.5) % Neutrophils # (Manual) (1.3-7.7) k/uL Lymphocytes # (Manual) (1.0-4.8) k/uL Monocytes # (Manual) (0-1.0) k/uL ABG pH 7.29 L 7.27 L (7.35-7.45) ABG pCO2 65 H 69 H (35-45) mmHg ABG pO2 81 L (83-108) mmHg ABG HCO3 31 H 31 H (21-25) mmol/L ABG Total CO2 33 H 33 H (19-24) mmol/L ABG O2 Saturation (94-97) % Sodium (137-145) mmol/L Potassium (3.5-5.1) mmol/L Chloride (98-107) mmol/L BUN (9-20) mg/dL Creatinine (0.66-1.25) mg/dL Glucose (74-99) mg/dL POC Glucose (mg/dL) 126 H (75-99) mg/dL Calcium (8.4-10.2) mg/dL Magnesium (1.6-2.3) mg/dL Total Protein (6.3-8.2) g/dL Albumin (3.5-5.0) g/dL 11/13/20 Range/Units 08:34 WBC (3.8-10.6) k/uL RBC (4.30-5.90) m/uL Hgb (13.0-17.5) gm/dL Hct (39.0-53.0) % MCV (80.0-100.0) fL RDW (11.5-15.5) % Neutrophils # (Manual) (1.3-7.7) k/uL Lymphocytes # (Manual) (1.0-4.8) k/uL Monocytes # (Manual) (0-1.0) k/uL ABG pH (7.35-7.45) ABG pCO2 (35-45) mmHg ABG pO2 (83-108) mmHg ABG HCO3 (21-25) mmol/L ABG Total CO2 (19-24) mmol/L ABG O2 Saturation (94-97) % Sodium (137-145) mmol/L Potassium (3.5-5.1) mmol/L Chloride (98-107) mmol/L BUN (9-20) mg/dL Creatinine (0.66-1.25) mg/dL Glucose (74-99) mg/dL POC Glucose (mg/dL) 108 H (75-99) mg/dL Calcium (8.4-10.2) mg/dL Magnesium (1.6-2.3) mg/dL Total Protein (6.3-8.2) g/dL Albumin (3.5-5.0) g/dL Microbiology - Last 24 Hours (Table) 11/10/20 12:16 Blood Culture - Preliminary Blood No Growth after 48 hours 11/10/20 12:12 Blood Culture - Preliminary Blood No Growth after 48 hours 11/09/20 10:00 Gram Stain - Final Bronchial Washings - Right Bronchial Washings Culture - Final Stenotrophomonas maltophilia Citrobacter freundii Assessment and Plan Assessment: 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 Status post post-bronchoscopy and bronchoalveolar lavage on 11/09 Acute COPD exacerbation, improving Right upper lung nodule highly suspicious for malignancy per PET scan Possible diabetes mellitus Plan: This is a pleasant 75 years old male status post CABG and aortic valve replacement. Also with pneumonia and COPD Continue with meropenem. and Solu-Medrol Pulmonary/critical care team will help with vent management Cardiothoracic surgery primary team on the case, who manage pt pressors [employer] team on the case Continue with aspirin Continue with insulin and monitor her glucose antibiotic management as per pulmonary critical care team several consultants on the case With management of this complicated case with multiple complex medical problems as above Labs and medication were reviewed.. Continue same treatment. Continue with symptomatic treatment. Resume home medication. Monitor lytes and vitals. DVT and GI prophylaxis. Further recommendations as per clinical course of the patient DVT prophylaxis: Subcutaneous heparin GI Prophylaxis: Ppi Prognosis is guarded Thank you for consulting us
--- NOTE | 2020-11-14 15:57 | P.PN ---
Progress Note - Text Progress Note Date: 11/14/20 - Chief Complaint Aortic valve replacement, 3 vessel bypass History of presenting complaint: This is a pleasant 75-year-old patient of Dr. Triana. 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 Marrero known coronary artery disease prior stents. , Hypertension, hyperlipidemia and early emphysema. Patient today has undergone bioprosthetic aortic valve replacement for aortic stenosis and triple-vessel bypass. Currently in the ICU admitted. FiO2 100 and a PEEP of 10. As to mediastinotomy 1 left pleural chest tube. Drips include nitroglycerin, debridement, Primacor, insulin, IV fluids. Telemetry: sinus rhythm. Patient subsequently developed bilateral pneumonia. Underwent bronchoscopy and bronchial lavage, growing stenotrophomonas maltophilia, Citrobacter . Also patient is developed acute kidney injury November 05: ICU: Intubated. FiO2 60, PEEP of 12. Chest tubes in place. Drips included propofol, insulin. Telemetry shows sinus rhythm. ET tube and OG tube in place. November 06: ICU: Intubated. FiO2 70 the PEEP of 12. Some endotracheal secretions. Some bloody output through the chest tubes. Drips included propofol and insulin. Patient sedated. Sinus rhythm. November 14: ICU: Intubated. Atrial paced. FiO2 90% and a PEEP of 22. Had a BM yesterday. Tube feeding at goal with Nepro at 33 mL an hour. Patient drips include fentanyl, propofol, Huber-Synephrine. Antibiotics include IV ceftazidime. Patient is developed acute kidney injury. Digoxin 2.6. Discontinued Review of systems: Patient intubated Active Medications Albuterol/Ipratropium (Ipratropium-Albuterol 3 Ml Neb) 3 ml INHALATION RT-Q2H PRN PRN Reason: Shortness Of Breath Or Wheezing Albuterol/Ipratropium (Ipratropium-Albuterol 3 Ml Neb) 3 ml INHALATION RT-QID [facility] Last Admin: 11/14/20 15:14 Dose: 3 ml Documented by: Amiodarone HCl (Amiodarone 200 Mg Tab) 400 mg PO BID [facility] Last Admin: 11/14/20 09:40 Dose: 400 mg Documented by: Ascorbic Acid (Ascorbic Acid 500 Mg Tab) 1,000 mg PO DAILY [facility] Last Admin: 11/14/20 09:39 Dose: 1,000 mg Documented by: Aspirin (Aspirin 325 Mg Tab) 325 mg PO DAILY [facility] Last Admin: 11/14/20 09:40 Dose: 325 mg Documented by: Atorvastatin Calcium (Atorvastatin 80 Mg Tab) 80 mg PO HS [facility] Last Admin: 11/13/20 20:02 Dose: 80 mg Documented by: Benzocaine/Menthol (Benzocaine/Menthol Lozeng 1 Each Lozenge) 1 each MUCOUS MEM Q2H PRN PRN Reason: Sore Throat Bisacodyl (Bisacodyl 10 Mg Supp) 10 mg RECTAL DAILY PRN PRN Reason: Constipation Last Admin: 11/13/20 08:36 Dose: 10 mg Documented by: Chlorhexidine Gluconate (Chlorhexidine Gluconate 15 Ml Cup) 15 ml MUCOUS MEM BID [facility] Last Admin: 11/14/20 09:40 Dose: 15 ml Documented by: Ezetimibe (Ezetimibe 10 Mg Tab) 10 mg PO HS [facility] Last Admin: 11/13/20 20:02 Dose: 10 mg Documented by: Ferrous Sulfate (Ferrous Sulfate Oral Elixir 300 Mg/5 Ml Cup) 300 mg OG-TUBE BID [facility] Last Admin: 11/14/20 09:40 Dose: 300 mg Documented by: Heparin Sodium (Porcine) (Heparin Sodium,Porcine/Pf 5,000 Unit/0.5 Ml Syringe) 5,000 unit SQ Q8HR [facility] Last Admin: 11/14/20 09:40 Dose: 5,000 unit Documented by: Propofol 1,000 mg/ IV Solution 100 mls @ 0 mls/hr IV .Q0M [facility]; Protocol Last Admin: 11/14/20 13:19 Dose: 40 mcg/kg/min, 24 mls/hr Documented by: Fentanyl Citrate 2,500 mcg/ (Sodium Chloride) 250 mls @ 0 mls/hr IV .Q0M [facility]; Protocol Last Admin: 11/14/20 13:17 Dose: 3 mcg/kg/hr, 31.53 mls/hr Documented by: Phenylephrine HCl 40 mg/ (Sodium Chloride) 254 mls @ 18.498 mls/hr IV .[id number] [facility]; Protocol Last Titration: 11/14/20 13:04 Dose: 0.6 mcg/kg/min, 22.197 mls/hr Documented by: Ceftazidime 2 gm/ Sodium (Chloride) 100 mls @ 25 mls/hr IVPB Q12H [facility] Insulin Aspart (Insulin Aspart (Novolog) 100 Unit/Ml Vial) 0 unit SQ Q4HR [facility]; Protocol Last Admin: 11/14/20 11:53 Dose: 4 unit Documented by: Insulin Detemir (Insulin Detemir (Levemir) 100 Unit/Ml Syr) 24 unit SQ DAILY@0700 [facility] Last Admin: 11/14/20 09:39 Dose: 24 unit Documented by: Magnesium Hydroxide (Magnesium Hydroxide 2,400 Mg/10 Ml Cup) 2,400 mg PO BID PRN PRN Reason: Constipation Methylprednisolone Sodium Succinate (Methylprednisolone Sod Succi 40 Mg/Ml 1 Ml Vial) 40 mg IV DAILY [facility] Last Admin: 11/14/20 09:40 Dose: 40 mg Documented by: Metoclopramide HCl (Metoclopramide 5 Mg/Ml 2 Ml Vial) 10 mg IVP Q6HR [facility] Last Admin: 11/14/20 11:54 Dose: 10 mg Documented by: Metoprolol Tartrate (Metoprolol Tartrate 25 Mg Tab) 25 mg PO BID [facility] Last Admin: 11/14/20 09:39 Dose: 25 mg Documented by: Miscellaneous Information (Potassium Replacement Protocol 1 Each Misc) 1 each MISCELLANE DAILY PRN; Protocol PRN Reason: Per Protocol Miscellaneous Information (Magnesium Replacement Protocol 1 Each Misc) 1 each MISCELLANE DAILY PRN; Protocol PRN Reason: Per Protocol Miscellaneous Information (Phosphorus Replacement Protoco 1 Each Misc) 1 each MISCELLANE DAILY PRN; Protocol PRN Reason: Per Protocol Multivitamins (Multivitamins, Thera 1 Each Tab) 1 each PO DAILY [facility] Last Admin: 11/14/20 09:41 Dose: 1 each Documented by: Ondansetron HCl (Ondansetron 4 Mg/2 Ml Vial) 4 mg IVP Q6HR PRN PRN Reason: Nausea And Vomiting Pantoprazole Sodium (Pantoprazole 40 Mg/10 Ml Vial) 40 mg IVP DAILY [facility] Last Admin: 11/14/20 09:41 Dose: 40 mg Documented by: Senna/Docusate Sodium (Sennosides-Docusate Sodium 1 Each Tab) 2 each PO HS [facility] Last Admin: 11/13/20 20:02 Dose: 2 each Documented by: Sodium Chloride (Sodium Chloride 0.9% Flush 10 Ml Syringe) 10 ml IV BID [facility] Last Admin: 11/14/20 09:41 Dose: 10 ml Documented by: Sodium Chloride (Sodium Chloride 0.9% Flush 10 Ml Syringe) 10 ml IV Q4HR PRN PRN Reason: PICC Line Sodium Chloride (Sodium Chloride 0.9% Flush 10 Ml Syringe) 10 ml IV WEEKLY [facility] Trimethoprim/Sulfamethoxazole (Sulfamethox-Tmp 800-160mg 1 Each Tab) 1 each PO BID [facility] Last Admin: 11/14/20 09:40 Dose: 1 each Documented by: Past medical history to include: Hypertension, hyperlipidemia, coronary artery stent, elevated PSA, emphysema, moderate aortic stenosis Social history: Lives with his son. Patient smoked about a pack a day for about 25 years of more stopped about 30 years ago. Alcohol occasional. Family history: Colon cancer Physical examination: VITAL SIGNS: 98, 71, 34, 147/49, 94% on the ventilator GENERAL: , laying in bed intubated EYES: Pupils equal. Conjunctiva normal. HEENT: External appearance of nose and ears normal, oral cavity-endotracheal tube, OG tube NECK: JVD unable to assess; masses not palpable. HEART: First and second heart sounds are normal; no edema. LUNGS: Respiratory rate increased; decreased breath sounds. ABDOMEN: Soft, nontender, liver spleen not palpable, no masses palpable. PSYCH: Patient sedated. NEUROLOGICAL: Cranial nerves grossly intact; no facial asymmetry, MUSCULAR schedule: Evidence of OA especially in the hands INVESTIGATIONS, reviewed in the clinical context: November 14: WBC 27.1 globin 8.2 platelets 268. Potassium 5.7 BUN 85 creatinine 1.90. Digoxin 2.6 Chest x-ray film personally reviewed by nj-[November 14]: Bilateral infiltrates November 09: Bronchial washings: Citrobacter freundii, S. malophilia Renal ultrasound: No hydronephrosis. No nephrolithiasis. No November 06: WBC 12.6 hemoglobin 7.6 platelets 18 potassium 4 creatinine 0.63 November 05: WBC 10.9 hemoglobin 8.2 platelets 70 White count 11.1 hemoglobin 7 platelets 128 Previous labs: 11/03/2020: WBC 6.9 hemoglobin 17.8 platelets 238 potassium 4.3 creatinine 0.75 Coronavirus [PCR]: Not detected Computed tomography scan chest without contrast [10/25/2020]: Bilobed nodule at the right apex 1.2 x 1.5 cm. Some congestion stranding. 2-D echocardiogram [September 2019] EF 50-45%. Hypokinetic vázquez. Moderate aortic stenosis. Moderate mitral stenosis. Assessment and plan: -Aortic valve replacement with a bioprosthetic valve and triple-vessel coronary artery disease -Septic shock -Acute kidney injury due to septic shock from [facility] Nephrology consult -Hyperkalemia from acute kidney injury Tube feeding changed to Nepro. DC Bactrim of possible. -Acute hypoxic respiratory failure with ventilator support: Worsening Currently on 90 % FiO2 and a PEEP of 22 intubated -Bilateral pneumonia, secondary to stenotrophomonas maltophilia, Citrobacter freundii: Slow to respond IV ceftazidime -Coronary artery disease Aspirin, Lipitor, -Essential hypertension Follow blood pressure closely -Hyperlipidemia Lipitor 80 mg daily at bedtime, -Primary osteoarthritis Pain medication as needed -Emphysema in a previous smoker DuoNeb 4 times a day -Moderate mitral stenosis Follow clinically -Right lung apex bilobed nodule 1.2 x 1.5 cm. Being followed by pulmonary -Acute postprocedure blood loss anemia, as expected from surgery Follow H&H -Acute thrombocytopenia, dilutional: Corrected Follow CBC -Paroxysmal atrial fibrillation, currently sinus rhythm Remains on the ventilator. Drips include fentanyl, propofol, Huber-Synephrine. Digoxin discontinued for a level of 2.6. IV ceftazidime Thank you Dr. Townsend
--- NOTE | 2020-11-14 16:01 | PN ---
PROGRESS NOTE DATE OF SERVICE: 11/14/2020 REASON FOR FOLLOWUP: Pneumonia. INTERVAL HISTORY: The patient is afebrile. The patient is hemodynamically stable. Still has brownish secretion through his ET. Has been tolerating his tube feeds. No diarrhea has been reported. He was on 100% FiO2 this morning. It is currently down to 90%, PEEP of 22. PHYSICAL EXAMINATION: Blood pressure 147/49 with a pulse of 71, temperature 98. He is 94% on 90% FiO2. GENERAL DESCRIPTION: General description is an elderly male intubated on the vent. RESPIRATORY SYSTEM: Unlabored breathing. Decreased intensity of breath sounds. No wheeze. HEART: S1, S2. Regular rate and rhythm. ABDOMEN: Soft. No tenderness. LABS: Hemoglobin is 8.9, white count 7.1. BUN of 85, creatinine is 1.90, potassium is 5.7. was 2.6. DIAGNOSTIC IMPRESSION AND PLAN: Patient with nosocomial pneumonia with a bronch culture positive for stenotrophomonas and citrobacter. Patient is covered with Fortaz and Bactrim. Unfortunately, Levaquin could not be used, as the patient is on amiodarone has been put on hold. Will monitor his kidney function and potassium closely. If any further worsening, will have a discussion with the wastewater engineer about amiodarone and need for Levaquin therapy for his underlying nosocomial pneumonia. Overall prognosis remains guarded. MMODL / IJN: [id number] /
[2020-11-14 16:37] LABS: Glucose,Whole Blood 174 mg/dL (75-99)
[2020-11-14] MEDS ORDERED: CALCIUM GLUCONATE 1 GM in SODIUM CHLORIDE 0.9% 100 ML IVPB ONE ×2 (18:11→22:00)
[2020-11-14] MEDS ORDERED: SODIUM BICARB 8.4% 50 ML SYR (1 MEQ/ML) IV STA ×2 (18:11→21:59)
[2020-11-14] MEDS ORDERED: INSULIN REGULAR 100 UNIT/ML VIAL (IV) IV ONE ×2 (18:11→22:00)
[2020-11-14] MEDS ORDERED: DEXTROSE 50% SYRINGE 50 ML IVP STA ×2 (18:11→22:00)
[2020-11-14 18:51] VITALS: BP 106/5
[2020-11-14] MEDS ORDERED: FUROSEMIDE 10 MG/ML 10 ML VIAL IV STA (18:54)
[2020-11-14 20:19] LABS: Glucose,Whole Blood 192 mg/dL (75-99)
[2020-11-14] MEDS: SENNOSIDES-DOCUSATE SODIUM 1 EACH TAB PO SCH (20:21)
[2020-11-14] MEDS: ATORVASTATIN 80 MG TAB PO SCH (20:21)
[2020-11-14] MEDS: EZETIMIBE 10 MG TAB PO SCH (20:22)
[2020-11-14 23:50] LABS: Glucose,Whole Blood 223 mg/dL (75-99)
[2020-11-15] MEDS: INSULIN ASPART (NovoLOG) 100 UNIT/ML VIAL SQ SCH ×2 (00:18→04:30)
[2020-11-15] MEDS: METOCLOPRAMIDE 5 MG/ML 2 ML VIAL IVP SCH (00:19)
[2020-11-15] MEDS: HEPARIN SODIUM,PORCINE/PF 5,000 UNIT/0.5 ML SYRINGE SQ SCH (00:22)
[2020-11-15 00:26] LABS: ABG HCO3 31 mmol/L (21-25); ABG Oxygen Saturation 77.8 % (94-97); ABG TCO2 33 mmol/L (19-24); Allen Test Performed? Yes
[2020-11-15 00:28] LABS: ABG PCO2 97 mmHg (35-45); ABG PH 7.11 (7.35-7.45)
[2020-11-15 00:29] LABS: ABG PO2 51 mmHg (83-108)
--- NOTE | 2020-11-15 00:53 | XR ---
EXAMINATION TYPE: XR chest 1V portable DATE OF EXAM: 11/15/2020 COMPARISON: Yesterday HISTORY: Hypoxemia TECHNIQUE: FINDINGS: There is moderate bilateral patchy airspace infiltrates. Pulmonary vascularity difficult to evaluate. There is nasogastric tube noted. There is some tubing over the neck. I do not see a defini te endotracheal tube. There is blunting right costophrenic angle. Heart size is fairly normal. Thorac ic aorta is intact. There are sternal wires. There are chest leads. IMPRESSION: Moderate bilateral pulmonary infiltrates could relate to developing RDS and appears sligh tly worse than yesterday.
--- NOTE | 2020-11-15 01:49 | XR ---
EXAMINATION TYPE: XR chest 1V portable DATE OF EXAM: 11/15/2020 COMPARISON: Today HISTORY: Check tube placement TECHNIQUE: FINDINGS: There is endotracheal tube 4.5 cm from the obi. There is extensive bilateral pulmonary i nterstitial and airspace infiltrates. This is more in the right lower lobe. There are sternal wires. There is nasogastric tube probably in the stomach. IMPRESSION: Pulmonary infiltrates consistent with RDS and not changed compared to exam one hour ago.
[2020-11-15] MEDS ORDERED: INSULIN REGULAR 100 UNIT/ML VIAL (IV) IV ONE (02:05)
[2020-11-15] MEDS ORDERED: SODIUM BICARB 8.4% 50 ML SYR (1 MEQ/ML) IV STA (02:05)
[2020-11-15] MEDS ORDERED: DEXTROSE 50% SYRINGE 50 ML IVP STA (02:06)
[2020-11-15] MEDS ORDERED: FUROSEMIDE 10 MG/ML 10 ML VIAL IV ONE (02:06)
[2020-11-15] MEDS ORDERED: ALBUTEROL NEB (CONC) 2.5 MG/0.5 ML INHALATION ONE (02:07)
[2020-11-15 02:14] LABS: ABG Base Excess -1.6 mmol/L; ABG HCO3 29 mmol/L (21-25); ABG Oxygen Saturation 77.4 % (94-97); ABG TCO2 33 mmol/L (19-24); Allen Test Performed? Yes
[2020-11-15] MEDS ORDERED: CALCIUM GLUCONATE 1 GM in SODIUM CHLORIDE 0.9% 100 ML IVPB ONE (02:15)
[2020-11-15] MEDS ORDERED: NOREPINEPHRINE 4 MG in SODIUM CHLORIDE 0.9% 250 ML IV SCH (02:30)
[2020-11-15 02:33] LABS: ABG PH 7.03 (7.35-7.45)
[2020-11-15 02:34] LABS: ABG PCO2 111 mmHg (35-45); ABG PO2 54 mmHg (83-108)
[2020-11-15 02:42] LABS: Anisocytosis Slight; HCT 26.2 % (39.0-53.0); HGB 7.9 gm/dL (13.0-17.5); Hypochromasia Marked; MCH 32.6 pg (25.0-35.0); MCHC 30.3 g/dL (31.0-37.0); MCV 107.5 fL (80.0-100.0); Macrocytosis Marked; Mean Platelet Volume 9.8; Platelet Count 323 k/uL (150-450); RBC 2.43 m/uL (4.30-5.90); RDW 18.2 % (11.5-15.5); WBC 36.9 k/uL (3.8-10.6)
[2020-11-15 02:56] LABS: Albumin 2.2 g/dL (3.5-5.0); Calcium 7.7 mg/dL (8.4-10.2); Total Bilirubin 0.4 mg/dL (0.2-1.3); Total Protein 4.7 g/dL (6.3-8.2)
[2020-11-15 03:09] LABS: Potassium 7.1 mmol/L (3.5-5.1)
[2020-11-15 03:16] VITALS: RESP 38
[2020-11-15 04:15] VITALS: PULSE 70; TEMP 98.7
[2020-11-15] MEDS ORDERED: MORPHINE SULFATE 4 MG/ML SYRINGE IV PRN (04:16)
[2020-11-15] MEDS ORDERED: MORPHINE SULFATE 2 MG/ML SYRINGE IV PRN (04:16)
[2020-11-15 04:43] LABS: Anisocytosis (M) Present; Band Neutrophils % 1 %; Lymphocytes # (M) 0.74 k/uL (1.0-4.8); Metamyelocytes # (M) 0.74 k/uL (0); Metamyelocytes % 2 %; Monocytes # (M) 1.11 k/uL (0-1.0); Myelocytes # (M) 1.11 k/uL (0); Myelocytes % 3 %; Neutrophils % (M) 90 %; Nucleated Red Blood Cells 0 /100 WBC (0-0); Polychromasia Present; Total Cells Counted 200; Toxic Granulation Present
--- NOTE | 2020-11-15 16:36 | P.DS ---
Providers Date of admission: 11/04/20 05:32 Expected date of discharge: 11/15/20 Attending physician: Gerson Townsend Consults: 11/04/20 14:27 Consult Physician Routine Consulting Provider: Kostas Espino Consult Reason/Comments: Sourcer Consult: post cardiac surgery Do you want consulting provider notified?: Yes Consult Physician Routine Consulting Provider: Boone Alonso Consult Reason/Comments: Field Agronomist Consult: post cardiac surgery Do you want consulting provider notified?: Yes Consult Physician Routine Consulting Provider: Florentino Kingsley Consult Reason/Comments: [facility]; [facility] patient Do you want consulting provider notified?: Yes 11/12/20 11:56 Consult Physician Routine Consulting Provider: Constance Gil Consult Reason/Comments: pneumonia Do you want consulting provider notified?: Yes 11/14/20 07:41 Consult Physician Routine Consulting Provider: Frances Rowley Consult Reason/Comments: BOSSMAN post CABG Do you want consulting provider notified?: Yes Primary care physician: [facility] Course: FINAL DIAGNOSIS: 1. Severe triple-vessel coronary artery disease 2. Moderate to severe aortic valve stenosis 3. Pulmonary hypertension 4. Known right upper lobe pulmonary nodule, suspicious for malignancy based on PET scan findings 5. COPD with preoperative FEV1 66% of predicted and DLCO 18% of predicted 6. Known right subclavian artery stenosis 7. History of hypertension, hypotensive on low-dose pressors after surgery, unexpected 8. Hyperlipidemia, treated 9. History of coronary artery disease with previous stenting to the right coronary artery 10. 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 Remote history of nicotine dependence 12. Postoperative anemia and some cytopenia, expected 13. Prolonged mechanical ventilatory support secondary to acute respiratory failure with ongoing hypoxemia and respiratory acidosis 14. Paroxysmal atrial fibrillation, known common occurrence after surgery 15. Pneumonia with sputum culture/bronchoscopy washing positive for Citrobacter freundii, Stenotrophomonas maltophilia, unexpected 16. BOSSMAN, hyperkalemia PRINCIPAL PROCEDURE: 1. Aortic valve replacement with a 27 mm [place] Inspiris bioprosthetic aortic valve 2. Coronary artery bypass grafting 3 with reverse saphenous vein graft off the aorta to the circumflex coronary artery, left anterior descending coronary artery, and the posterior descending coronary artery 3. Harvesting of the bilateral lower extremity greater saphenous veins 4. Clip ligation of the left atrial appendage with a 35 mm AtriClip 5. Intraoperative transesophageal echocardiogram 6. Graft flow measurements using the [employer] system 7. Flex bronchoscopy, bronchial alveolar lavage of the anterior segment of the right lower lobe by pulmonology HISTORY OF PRESENT ILLNESS: This was a 75-year-old active gentleman who followed on an outpatient basis with Dr. Triana for primary care and Dr. Bowling for cardiology. The patient had stents placed by Dr. Bowling in September 2019 and had been recovering at home very well, however he recently began experiencing exertional shortness of breath and chest pain. He underwent stress testing which was abnormal. He was recommended to undergo heart catheterization and transesophageal echocardiogram. Cardiac catheterization revealed triple-vessel coronary artery disease and GINI demonstrated moderate to severe aortic valve stenosis. The patient was referred to Dr. Townsend from cardiothoracic surgery. He was recommended to undergo aortic valve replacement with coronary artery bypass surgery. The usual perioperative course was discussed in detail with the patient, all risks and benefits were explained, all questions were answered, and consent was obtained to proceed with surgery. The patient received dental clearance and had outpatient workup by pulmonology for known right upper lobe pulmonary nodule, he was cleared for surgery with moderate risk by pulmonology. He was scheduled for surgery at the earliest possible date. HOSPITAL COURSE: The patient was brought to the hospital on 11/04/2020, taken to the preoperative area, prepared in the usual fashion, and subsequently taken to the operating room where Dr. Townsend performed bioprosthetic aortic valve replacement as well as three-vessel CABG. Upon completion of surgery the patient was transferred to the cardiovascular intensive care unit where he was recovered and monitored hemodynamically. Unfortunately he was unable to be extubated as he developed acute respiratory failure with hypercarbia followed by hypoxemia that led to hemodynamic instability. An echo was performed post surgery which did show normal LV function and normally functioning aortic valve with no significant gradient. He continued to deteriorate, discussion was had with the family and they requested the patient be made comfort care. He received last right per the family's wishes, was extubated, and a short time later. Plan - Discharge Summary Discharge Rx Participant: No New Discharge Prescriptions: No Action Multivitamins, Thera [Multivitamin (formulary)] 1 tab PO DAILY Ascorbic Acid [Vitamin C] 1,000 mg PO DAILY Metoprolol Tartrate [Lopressor] 50 mg PO BID Ezetimibe [Zetia] 10 mg PO HS Atorvastatin Calcium [Lipitor] 80 mg PO HS Aspirin EC [Ecotrin Low Dose] 81 mg PO DAILY [place]-3 Fatty Acids/Fish Oil [Fish Oil 1,000 mg Softgel] 1 cap PO DAILY Clopidogrel [Plavix] 75 mg PO DAILY #90 tab Nitroglycerin Sl Tabs [Nitrostat] 0.4 mg SUBLINGUAL Q5M PRN #25 tab PRN Reason: Chest Pain Furosemide [Lasix] 40 mg PO DAILY Biotin 10,000 mcg PO DAILY amLODIPine BESYLATE [Norvasc] 2.5 mg PO DAILY Glucos Sul 2Kcl/MSM/Chond/C/Mn [Glucosamine Chondroitin Cap] 2 each PO DAILY Discharge Medication List Ascorbic Acid [Vitamin C] 1,000 mg PO DAILY 08/22/15 [History] Aspirin EC [Ecotrin Low Dose] 81 mg PO DAILY 08/22/15 [History] Atorvastatin Calcium [Lipitor] 80 mg PO HS 08/22/15 [History] Ezetimibe [Zetia] 10 mg PO HS 08/22/15 [History] Metoprolol Tartrate [Lopressor] 50 mg PO BID 08/22/15 [History] Multivitamins, Thera [Multivitamin (formulary)] 1 tab PO DAILY 08/22/15 [History] [place]-3 Fatty Acids/Fish Oil [Fish Oil 1,000 mg Softgel] 1 cap PO DAILY 08/22/15 [History] Clopidogrel [Plavix] 75 mg PO DAILY #90 tab 10/16/19 [Rx] Nitroglycerin Sl Tabs [Nitrostat] 0.4 mg SUBLINGUAL Q5M PRN #25 tab 10/17/19 [Rx] Biotin 10,000 mcg PO DAILY 10/06/20 [History] Furosemide [Lasix] 40 mg PO DAILY 10/06/20 [History] amLODIPine BESYLATE [Norvasc] 2.5 mg PO DAILY 10/06/20 [History] Glucos Sul 2Kcl/MSM/Chond/C/Mn [Glucosamine Chondroitin Cap] 2 each PO DAILY 10/24/20 [History] Follow up Appointment(s)/Referral(s): Anneliese Bowling MD [STAFF PHYSICIAN] - 1 Week Discharge Disposition: - Preliminary Cause of Preliminary Cause of : Acute respiratory failure
--- NOTE | 2020-11-16 23:08 | P.PN ---
Subjective Progress Note Date: 11/07/20 Principal diagnosis: S/p CABG and AVR done on 11/04/2020 Mr. Johnson is a 75-year-old male with a past medical history of coronary artery disease, hypertension, hyperlipidemia, COPD admitted for severe triple coronary artery disease and aortic stenosis. Patient underwent coronary artery bypass surgery after aortic wall placement done on 11/04/2020. On 11/07/2020 -patient is seen and examined at bedside. Currently patient is in the ICU intubated and sedated. Patient on vent into atrial fibrillation with rapid ventricular rate last night and also has been started on amiodarone infusion. He still continues to be in atrial fibrillation.. Patient's platelet count is very low, HIT antibodies have been sent and currently pending. Patient received multiple blood products postoperative. Including 3 units of PRBCs 4 units FFP and 1 unit of cryo and 1 unit of platelets. Currently there is no evidence of acute bleeding and his chest tubes show minimal sanguinous discharge. Medication have been reviewed. Objective - Vital Signs Vital signs: Vital Signs Temp 98.8 F 11/07/20 16:00 Pulse 56 L 11/07/20 19:00 Resp 24 11/07/20 19:00 BP 100/61 11/07/20 11:00 Pulse Ox 97 11/07/20 19:00 Intake & Output 11/07/20 11/07/20 11/08/20 06:59 18:59 06:59 Intake Total 3882.589 5540.184 40 Output Total 590 1155 35 Balance 533.150 989.184 5 Weight 93.2 kg 93.2 kg Intake: IV 640 460 20 CO/CI 40 160 Lactated Ringers 1,000 ml 600 300 20 @ 20 mls/hr IV .Q24H CINDY Rx#:[id number] Intake, IV Titration 283.150 964.184 Amount Albumin Human 5% 250 ml 500 In Empty Bag 1 bag @ 250 mls/hr IVPB ONCE STA Rx#: [id number] Amiodarone 450 mg In 241.949 Dextrose 5% in Water 250 ml @ 0.5 MG/MIN 16.667 mls/hr IV .Q15H PRN Rx#: [id number] Insulin Regular 100 unit 29.652 37.226 In Sodium Chloride 0.9% 100 ml @ Per Protocol IV .Q0M CINDY Rx#:[id number] propofoL 1,000 mg In 253.498 185.009 Empty Bag 1 bag @ Titrate IV .Q0M CINDY Rx#: [id number] Tube Feeding 110 230 20 Blood Product 310 Rc As-1 Unit 310 [id number] Other 90 180 Output: Chest Tube Drainage 70 115 Mediastinal 20 40 medistinal #1 50 75 Urine 520 1040 35 Other: Voiding Method Indwelling Catheter Indwelling Catheter ABP, PAP, CO, CI - Last Documented Arterial Blood Pressure 113/44 Pulmonary Artery Pressure 56/24 Cardiac Output 5.6 Cardiac Index 2.8 - Exam Physical examination: GENERAL: , lying in bed intubated EYES: Pupils equal. Conjunctiva normal. HEENT: External appearance of nose and ears normal, oral cavity-endotracheal tube, OG tube NECK: JVD unable to assess; masses not palpable. HEART: First and second heart sounds are normal; no edema. LUNGS: Respiratory rate increased; decreased breath sounds. 2 mediastinotomy and 1 left pleural chest tube ABDOMEN: Soft, nontender, liver spleen not palpable, no masses palpable. PSYCH: Patient sedated. NEUROLOGICAL: no facial asymmetry, MUSCULAR schedule: Evidence of OA especially in the hands - Labs CBC & Chem 7: 11/15/20 02:10 11/15/20 Unknown Labs: Abnormal Lab Results - Last 24 Hours (Table) 10/24/20 11/06/20 11/06/20 Range/Units 13:00 19:53 22:03 WBC (3.8-10.6) k/uL RBC (4.30-5.90) m/uL Hgb (13.0-17.5) gm/dL Hct (39.0-53.0) % RDW (11.5-15.5) % Plt Count (150-450) k/uL Neutrophils # (Manual) (1.3-7.7) k/uL Lymphocytes # (Manual) (1.0-4.8) k/uL Nucleated RBCs (0-0) /100 WBC ABG pH (7.35-7.45) ABG pO2 (83-108) mmHg ABG HCO3 (21-25) mmol/L ABG Total CO2 (19-24) mmol/L ABG O2 Saturation (94-97) % BUN (9-20) mg/dL Glucose (74-99) mg/dL POC Glucose (mg/dL) 144 H 154 H (75-99) mg/dL Calcium (8.4-10.2) mg/dL Total Protein (6.3-8.2) g/dL Albumin (3.5-5.0) g/dL Crossmatch See Detail 11/07/20 11/07/20 11/07/20 Range/Units 00:36 02:03 04:40 WBC 12.7 H (3.8-10.6) k/uL RBC 2.36 L (4.30-5.90) m/uL Hgb 7.9 L (13.0-17.5) gm/dL Hct 22.8 L (39.0-53.0) % RDW 19.1 H (11.5-15.5) % Plt Count 82 L (150-450) k/uL Neutrophils # (Manual) 12.00 H (1.3-7.7) k/uL Lymphocytes # (Manual) 0.38 L (1.0-4.8) k/uL Nucleated RBCs 1 H (0-0) /100 WBC ABG pH (7.35-7.45) ABG pO2 (83-108) mmHg ABG HCO3 (21-25) mmol/L ABG Total CO2 (19-24) mmol/L ABG O2 Saturation (94-97) % BUN (9-20) mg/dL Glucose (74-99) mg/dL POC Glucose (mg/dL) 168 H 167 H (75-99) mg/dL Calcium (8.4-10.2) mg/dL Total Protein (6.3-8.2) g/dL Albumin (3.5-5.0) g/dL Crossmatch 11/07/20 11/07/20 11/07/20 Range/Units 04:40 04:40 05:26 WBC (3.8-10.6) k/uL RBC (4.30-5.90) m/uL Hgb (13.0-17.5) gm/dL Hct (39.0-53.0) % RDW (11.5-15.5) % Plt Count (150-450) k/uL Neutrophils # (Manual) (1.3-7.7) k/uL Lymphocytes # (Manual) (1.0-4.8) k/uL Nucleated RBCs (0-0) /100 WBC ABG pH 7.46 H (7.35-7.45) ABG pO2 76 L (83-108) mmHg ABG HCO3 27 H (21-25) mmol/L ABG Total CO2 28 H (19-24) mmol/L ABG O2 Saturation (94-97) % BUN 21 H (9-20) mg/dL Glucose 152 H (74-99) mg/dL POC Glucose (mg/dL) 165 H (75-99) mg/dL Calcium 8.0 L (8.4-10.2) mg/dL Total Protein 4.8 L (6.3-8.2) g/dL Albumin 2.6 L (3.5-5.0) g/dL Crossmatch 11/07/20 11/07/20 11/07/20 Range/Units 06:12 08:02 10:04 WBC (3.8-10.6) k/uL RBC (4.30-5.90) m/uL Hgb (13.0-17.5) gm/dL Hct (39.0-53.0) % RDW (11.5-15.5) % Plt Count (150-450) k/uL Neutrophils # (Manual) (1.3-7.7) k/uL Lymphocytes # (Manual) (1.0-4.8) k/uL Nucleated RBCs (0-0) /100 WBC ABG pH (7.35-7.45) ABG pO2 (83-108) mmHg ABG HCO3 (21-25) mmol/L ABG Total CO2 (19-24) mmol/L ABG O2 Saturation (94-97) % BUN (9-20) mg/dL Glucose (74-99) mg/dL POC Glucose (mg/dL) 156 H 146 H 158 H (75-99) mg/dL Calcium (8.4-10.2) mg/dL Total Protein (6.3-8.2) g/dL Albumin (3.5-5.0) g/dL Crossmatch 11/07/20 11/07/20 11/07/20 Range/Units 11:22 11:36 12:05 WBC (3.8-10.6) k/uL RBC (4.30-5.90) m/uL Hgb (13.0-17.5) gm/dL Hct (39.0-53.0) % RDW (11.5-15.5) % Plt Count (150-450) k/uL Neutrophils # (Manual) (1.3-7.7) k/uL Lymphocytes # (Manual) (1.0-4.8) k/uL Nucleated RBCs (0-0) /100 WBC ABG pH (7.35-7.45) ABG pO2 65 L (83-108) mmHg ABG HCO3 29 H (21-25) mmol/L ABG Total CO2 30 H (19-24) mmol/L ABG O2 Saturation 93.4 L (94-97) % BUN (9-20) mg/dL Glucose (74-99) mg/dL POC Glucose (mg/dL) 140 H 148 H (75-99) mg/dL Calcium (8.4-10.2) mg/dL Total Protein (6.3-8.2) g/dL Albumin (3.5-5.0) g/dL Crossmatch 11/07/20 11/07/20 11/07/20 Range/Units 13:59 14:15 15:53 WBC (3.8-10.6) k/uL RBC (4.30-5.90) m/uL Hgb (13.0-17.5) gm/dL Hct (39.0-53.0) % RDW (11.5-15.5) % Plt Count (150-450) k/uL Neutrophils # (Manual) (1.3-7.7) k/uL Lymphocytes # (Manual) (1.0-4.8) k/uL Nucleated RBCs (0-0) /100 WBC ABG pH 7.46 H (7.35-7.45) ABG pO2 (83-108) mmHg ABG HCO3 28 H (21-25) mmol/L ABG Total CO2 29 H (19-24) mmol/L ABG O2 Saturation 97.9 H (94-97) % BUN (9-20) mg/dL Glucose (74-99) mg/dL POC Glucose (mg/dL) 125 H 124 H (75-99) mg/dL Calcium (8.4-10.2) mg/dL Total Protein (6.3-8.2) g/dL Albumin (3.5-5.0) g/dL Crossmatch 11/07/20 Range/Units 17:54 WBC (3.8-10.6) k/uL RBC (4.30-5.90) m/uL Hgb (13.0-17.5) gm/dL Hct (39.0-53.0) % RDW (11.5-15.5) % Plt Count (150-450) k/uL Neutrophils # (Manual) (1.3-7.7) k/uL Lymphocytes # (Manual) (1.0-4.8) k/uL Nucleated RBCs (0-0) /100 WBC ABG pH (7.35-7.45) ABG pO2 (83-108) mmHg ABG HCO3 (21-25) mmol/L ABG Total CO2 (19-24) mmol/L ABG O2 Saturation (94-97) % BUN (9-20) mg/dL Glucose (74-99) mg/dL POC Glucose (mg/dL) 168 H (75-99) mg/dL Calcium (8.4-10.2) mg/dL Total Protein (6.3-8.2) g/dL Albumin (3.5-5.0) g/dL Crossmatch Microbiology - Last 24 Hours (Table) 11/06/20 08:26 Urine Culture - Final Urine,Voided 11/06/20 08:14 Gram Stain - Preliminary Sputum Sputum Culture - Preliminary Gram Neg Bacilli Assessment and Plan Assessment: ASSESSMENT Severe triple coronary artery disease and aortic stenosis status post CABG and aortic valve replacement done on 11/04/2020 Acute hypoxic respiratory failure Acute COPD exacerbation Pneumonia secondary to Citrobacter Right upper lung nodule highly suspicious for malignancy per PET scan Diabetes mellitus Hypertension Hyperlipidemia Multiple joint osteoarthritis Postoperative anemia Postoperative thrombocytopenia PLAN : Continue with ventilatory support, continue with antibiotics in the form of cefepime for possible pneumonia patient to be continued on IV steroids and breathing treatments. He is currently on amiodarone drip for atrial fibrillation with rapid ventricular rate, currently rate controlled. Patient is being closely followed by cardiology, pulmonary, CT surgery. Further recommendations depending on the progress of the patient. Overall prognosis remains guarded.
--- NOTE | 2020-11-18 12:27 | CDI ---
Documentation Clarification Form Date: 11/18/2020 12:06:39 PM From: Jeannette Carbajal CCS, CCDS Admit Date: 11/04/2020 05:32:00 AM Patient Name: Henrique Johnson Visit Number: [id number] Discharge Date: 11/15/2020 04:54:00 AM ATTENTION: The Clinical Documentation Specialists (CDI) and [facility] Coding Staff appreciate your assistance in clarifying documentation. Please respond to the clarification below the line at the bottom and electronically sign. The CDI & [facility] Coding staff will review the response and follow-up if needed. Please note: Queries are made part of the Legal Health Record. If you have any questions, please contact the author of this message via ITS. Dr. Kostas Espino: Per the following documentation, Gram Negative Pneumonia and possible Ventilator Associated Pneumonia is documented. Per the 11/13 Pulmonary Progress Note: The patient developed gram-negative pneumonia, possibly ventilator associated versus hospital-acquired. Per the 11/13 Infectious Disease Consult: Patient with acute respiratory failure which is multifactorial in this patient with the possible component of ventilator associated pneumonia with overall culture positive for stenotrophomonas and Citrobacter. Additional clarification regarding the type of pneumonia is requested. History/Risk Factors per the 11/04 Medical Management Consult: CAD w/history of CO & coronary stents, Hypertension, Hyperlipidemia, COPD, History of RUL Pneumonia & RUL Pulmonary Nodule. Per the Preop Cardiothoracic H/P: the patient has a history of pneumonia requiring a wedge biopsy due to [place]. Clinical Indicators: Presented on 11/04 for an elective CABG and AVR. Postoperatively, the patient developed Acute Hypoxic & Hypercapnic Respiratory Failure, possible ARDS and was unable to wean from the vent. The patient ultimately on 11/15. 11/04 Postop VS: T 97.0, P 106, R 14, BP (Arterial): 106/106 - 27/17, PO 89 on 100% vent. 11/04 LAB: WBC 12.7, Hgb 9.4, Hct 27.7, Neut 10.10. PT 14.9, INR 1.5, APTT 54.3, Fibrinogen 130, Cl 109, Calcium 7.1, Mag 2.5, total Bili 2.0, Alk Phos 22, Total Protein 4.4, Albumin 2.7. 11/04 Arterial Blood Gas: pH 7.18, pCO2 73, pO2 72, HCO3 27, Total CO2 29, O2 Sat 90.0. Cultures: 11/06 Sputum (Final): Citrobacter freundii 11/06 Urine (Final): Negative 11/09 Bronchial Washings (Final): Stenotrophomonas maltophilia, Citrobacter freundii 11/10 Blood x2 (Final): Negative Treatment 11/04 Postop: IV Albumin, INH Duoneb, Intubated/Vent, IV Amiodarone, IV Calcium Gluconate, IV Clevidipine, IV Apresoline, IV Insulin, IV Propofol, IV Solumedrol, IV Levophed. 11/07: IV Cefepime 11/10: IV Vancomycin 11/11: IV Meropenem 11/13: IV Ceftazidime Please clarify the type of pneumonia, if known: [ ] Gram Negative Bacterial Pneumonia, please specify organism: [ ] Ventilator Associated Pneumonia [ x ] Hospital Acquired Pneumonia, please specify if bacterial w/organism: ____pseudomnas/stenotropomponas [ ] Other Pneumonia, please specify: [ ] Unable to determine (Template Last Revised: May 2020) MTDD
== END 2020-11-15 04:54 | disposition expired | DRG 219 ==
LOC: 2ORMAIN 11-04 05:32 → 2SICU 11-04 15:06
PROVIDERS: ADMIT Thoracic Surgery (Cardiothoracic Vascular Surgery); ATTEND Thoracic Surgery (Cardiothoracic Vascular Surgery)
PROC: 30233R1 Transfusion of Nonautologous Platelets into Peripheral Vein, Percutaneous Approach (ICD-10-PCS; principal; 2020-11-04 08:00)
PROC: 3E033XZ Introduction of Vasopressor into Peripheral Vein, Percutaneous Approach (ICD-10-PCS; principal; 2020-11-04 08:00)
PROC: 30233K1 Transfusion of Nonautologous Frozen Plasma into Peripheral Vein, Percutaneous Approach (ICD-10-PCS; principal; 2020-11-04 08:00)
PROC: 021209W Bypass Coronary Artery, Three Arteries from Aorta with Autologous Venous Tissue, Open Approach (ICD-10-PCS; principal; 2020-11-04 08:00)
PROC: 30233N1 Transfusion of Nonautologous Red Blood Cells into Peripheral Vein, Percutaneous Approach (ICD-10-PCS; principal; 2020-11-04 08:00)
PROC: 02L70CK Occlusion of Left Atrial Appendage with Extraluminal Device, Open Approach (ICD-10-PCS; principal; 2020-11-04 08:00)
PROC: 5A1221Z Performance of Cardiac Output, Continuous (ICD-10-PCS; principal; 2020-11-04 08:00)
PROC: 06BQ4ZZ Excision of Left Saphenous Vein, Percutaneous Endoscopic Approach (ICD-10-PCS; principal; 2020-11-04 08:00)
PROC: B24BZZ4 Ultrasonography of Heart with Aorta, Transesophageal (ICD-10-PCS; principal; 2020-11-04 08:00)
PROC: 02RF08Z Replacement of Aortic Valve with Zooplastic Tissue, Open Approach (ICD-10-PCS; principal; 2020-11-04 08:00)
PROC: 4A1305C Monitoring of Arterial Flow, Coronary, Open Approach (ICD-10-PCS; principal; 2020-11-04 08:00)
PROC: 06BP4ZZ Excision of Right Saphenous Vein, Percutaneous Endoscopic Approach (ICD-10-PCS; principal; 2020-11-04 08:00)
PROC: 5A1955Z Respiratory Ventilation, Greater than 96 Consecutive Hours (ICD-10-PCS; 2020-11-04 08:00)
PROC: 30233M1 Transfusion of Nonautologous Plasma Cryoprecipitate into Peripheral Vein, Percutaneous Approach (ICD-10-PCS; 2020-11-04 08:00)
PROC: 0D9670Z Drainage of Stomach with Drainage Device, Via Natural or Artificial Opening (ICD-10-PCS; 2020-11-04 08:00)
PROC: 3E0G76Z Introduction of Nutritional Substance into Upper GI, Via Natural or Artificial Opening (ICD-10-PCS; 2020-11-06)
PROC: 4A133B1 Monitoring of Arterial Pressure, Peripheral, Percutaneous Approach (ICD-10-PCS; 2020-11-07)
PROC: 03HY32Z Insertion of Monitoring Device into Upper Artery, Percutaneous Approach (ICD-10-PCS; 2020-11-07)
PROC: 4A133J1 Monitoring of Arterial Pulse, Peripheral, Percutaneous Approach (ICD-10-PCS; 2020-11-07)
PROC: 0B9F8ZZ Drainage of Right Lower Lung Lobe, Via Natural or Artificial Opening Endoscopic (ICD-10-PCS; 2020-11-09)
PROC: 0B9F8ZX Drainage of Right Lower Lung Lobe, Via Natural or Artificial Opening Endoscopic, Diagnostic (ICD-10-PCS; 2020-11-09)
PROC: 02HV33Z Insertion of Infusion Device into Superior Vena Cava, Percutaneous Approach (ICD-10-PCS; 2020-11-09)
PROC: 05HD33Z Insertion of Infusion Device into Right Cephalic Vein, Percutaneous Approach (ICD-10-PCS; 2020-11-14)
DX: I25.10 Atherosclerotic heart disease of native coronary artery without angina pectoris (principal); J15.6 Pneumonia due to other Gram-negative bacteria; N17.0 Acute kidney failure with tubular necrosis; R65.21 Severe sepsis with septic shock; J96.02 Acute respiratory failure with hypercapnia; J96.01 Acute respiratory failure with hypoxia; A41.9 Sepsis, unspecified organism; E87.2 Acidosis; C34.11 Malignant neoplasm of upper lobe, right bronchus or lung; D62 Acute posthemorrhagic anemia; I47.1 Supraventricular tachycardia; D69.6 Thrombocytopenia, unspecified; I11.0 Hypertensive heart disease with heart failure; I27.20 Pulmonary hypertension, unspecified; I50.9 Heart failure, unspecified; J43.9 Emphysema, unspecified; I48.0 Paroxysmal atrial fibrillation; Y95 Nosocomial condition; I35.0 Nonrheumatic aortic (valve) stenosis; I95.81 Postprocedural hypotension; Z51.5 Encounter for palliative care; Z66 Do not resuscitate; E78.5 Hyperlipidemia, unspecified; E87.5 Hyperkalemia; I45.10 Unspecified right bundle-branch block; I70.8 Atherosclerosis of other arteries; I25.2 Old myocardial infarction; N40.0 Benign prostatic hyperplasia without lower urinary tract symptoms; M19.91 Primary osteoarthritis, unspecified site; Z79.82 Long term (current) use of aspirin; Z79.02 Long term (current) use of antithrombotics/antiplatelets; Z79.899 Other long term (current) drug therapy; Z87.891 Personal history of nicotine dependence; Z95.5 Presence of coronary angioplasty implant and graft; Z77.098 Contact with and (suspected) exposure to other hazardous, chiefly nonmedicinal, chemicals; Z86.19 Personal history of other infectious and parasitic diseases; Z80.0 Family history of malignant neoplasm of digestive organs
CPT/HCPCS: 31624; 36410; 36430; 36573; 71045; 76770; 76937; 80053; 80162; 80202; 81001; 82330; 82805; 83036; 83605; 83735; 84132; 84145; 85025; 85384; 85520; 85610; 85730; 86022; 86850; 86891; 86900; 86901; 86920; 87040; 87070; 87077; 87086; 87186; 87205; 88108; 88305; 88311; 89050; 93308; 94002; 94003; 94640; 94644